=== PATIENT | male | born 1965 | race Caucasian/White ===

== ENCOUNTER 2018-10-13 04:49 | Inpatient (IN) | payer MEDICARE ==
[~2018-10-13] VITALS: Ht 172.7 cm; Wt 71.8 kg
[2018-10-13 06:00] VITALS: BP 167/77
[2018-10-13] MEDS ORDERED: INSU100C SQ (06:49)
[2018-10-13] MEDS ORDERED: CARV25TA2 PO (06:49)
[2018-10-13] MEDS ORDERED: LOSA100T2 PO (06:49)
[2018-10-13] MEDS ORDERED: LOPE2TAB27 PO (06:49)
[2018-10-13] MEDS ORDERED: FOLI1TAB16 PO (06:49)
[2018-10-13] MEDS ORDERED: BENZ100C PO (06:49)
[2018-10-13] MEDS ORDERED: ONDA4TAB12 PO (06:49)
[2018-10-13] MEDS ORDERED: TAMS0.4C2 PO (06:49)
[2018-10-13] MEDS ORDERED: INSU100I13 SQ (06:49)
[2018-10-13] MEDS ORDERED: GABA600T2 PO (06:49)
[2018-10-13] MEDS ORDERED: MONT10TA9 PO (06:49)
[2018-10-13] MEDS ORDERED: FURO80TA3 PO (06:49)
[2018-10-13] MEDS ORDERED: AMLO10TA6 PO (06:49)
[2018-10-13] MEDS ORDERED: CALC667T PO (06:49)
[2018-10-13] MEDS ORDERED: DIAZEPAM10 MG PO (06:49)
[2018-10-13] MEDS ORDERED: HYDR100T24 PO (06:49)
[2018-10-13] MEDS ORDERED: ASPI-630 PO (06:49)
[2018-10-13] MEDS ORDERED: ATOR40TA59 PO (06:49)
[2018-10-13] MEDS ORDERED: HYDROcodone/APAP 5/325MG 1 TAB TABLET PO PRN (07:00)
[2018-10-13] MEDS ORDERED: ONDANSETRON ODT 4 MG TAB.RAPDIS. PO PRN (07:00)
[2018-10-13] MEDS ORDERED: HEPARIN 25,000UTS/500ML PREMIX 500 ML IV PRN (07:15)
[2018-10-13] MEDS ORDERED: LOPERAMIDE 2 MG CAPSULE PO PRN (07:15)
[2018-10-13] MEDS ORDERED: diazePAM 5 MG TABLET PO PRN (07:15)
[2018-10-13] MEDS ORDERED: HEPARIN for IV BOLUS 10,000 UNIT/10 ML VIAL. IV PRN (07:15)
[2018-10-13] MEDS: INSULIN LISPRO 300 UNITS/3 ML INSULN.PEN. SQ SCH ×3 (08:00→18:01)
[2018-10-13] MEDS: CALCIUM ACETATE 667 MG CAPSULE PO SCH ×3 (08:00→17:54)
[2018-10-13] MEDS ORDERED: BENZONATATE 100 MG CAPSULE. PO PRN (09:00)
[2018-10-13] MEDS: FUROSEMIDE 80 MG TABLET. PO SCH ×3 (09:00→13:58)
[2018-10-13] MEDS ORDERED: amLODIPine BESYLATE 10 MG TABLET PO SCH (09:00)
[2018-10-13] MEDS ORDERED: FOLIC ACID 1 MG TABLET. PO SCH (09:00)
[2018-10-13] MEDS ORDERED: ASPIRIN CHEWABLE 81 MG TABLET. PO SCH (09:00)
[2018-10-13] MEDS: GABAPENTIN 300 MG CAPSULE. PO SCH ×2 (09:00→13:46)
[2018-10-13] MEDS ORDERED: IV NORMAL SALINE 1000ML BAG 1,000 ML IV PRN ×2 (09:35)
[2018-10-13] MEDS ORDERED: DIALYSIS PATIENT. MC PRN (09:45)
--- NOTE | 2018-10-13 10:26 | HP ---
ADMIT DATE: 10/13/2018 HISTORY OF PRESENT ILLNESS: The patient is a 52-year-old male patient who presented to the Emergency Room of [facility] complaining of cough with central chest pain that lasts about 30 minutes. He apparently is known to have coronary artery disease with myocardial infarction in 2009 and he is known to have end-stage renal disease, on hemodialysis on Tuesday, Tuesday, and Tuesday for the last 2 years, who apparently took nitroglycerin sublingually and alleviated his pain from a severity of 7/10 down to 3/10. He was extensively investigated in the Emergency Room of [facility], was found to have elevated troponin of 0.026. A chest x-ray showed that he has evidence of pulmonary congestion, fluid overload, and therefore, the patient was transferred to [facility] as he clearly will require dialysis and ultrafiltration. When I saw him this morning, he was chest pain free, though he has nitro paste in his chest wall. He did receive also some IV morphine and apparently that makes him very groggy. His oxygen has dropped down to the mid 80s, but on 2 liters his oxygen improved to 93-94%. PAST MEDICAL HISTORY: Significant for type 2 diabetes mellitus, chronic obstructive pulmonary disease, hypertension, cerebrovascular accident x 2 in 2004. He has end-stage renal disease, on hemodialysis in the last 2 days, Tuesday, Tuesday and Tuesday; history of coronary artery disease, status post myocardial infarction in 2009. PAST SURGICAL HISTORY: Significant for arteriovenous fistula creation. FAMILY HISTORY: Noncontributory. SOCIAL HISTORY: He is , lives with his . He quit smoking. Does not drink alcohol or use recreational drugs. REVIEW OF SYSTEMS: As per history of present illness. PHYSICAL EXAMINATION GENERAL: When I saw him, he was resting slightly propped up in bed, receiving his scheduled hemodialysis. He was slightly pale, but no jaundice, cyanosis or thyromegaly. No jugular venous distention. No lower limb edema. VITAL SIGNS: His heart rate was 100, blood pressure was 167/77, temperature was 97.6, respiratory rate was 18 and oxygen saturation was 93% on 2 liters of oxygen. HEAD, EYES, EARS, NOSE AND THROAT: Showed normocephalic, atraumatic. NECK: Supple. HEART: Showed normal first and second sounds. No gallop, rub or murmur. CHEST: Shows central trachea, equal bilateral expansion, air entry, with bilateral crepitation posteriorly. I could not appreciate any rhonchi. ABDOMEN: Distended, soft, nontender. NEUROLOGIC: He was somewhat lethargic, but arousable. All his cranial nerves are intact. EXTREMITIES: He moves extremities without difficulty. LABORATORY DATA: At [facility] showed that his white cell count was 6600, hemoglobin was 9.5, hematocrit 28, MCV 99 and platelet count of 166,000. His prothrombin time was 9.9, INR of 1, aPTT was 28. His serum sodium 139, potassium 5, chloride 98, bicarbonate 26, anion gap of 15, BUN of 56, creatinine 7.2, estimated GFR was 80 mL per minute. His glucose was 177, calcium was 8.2, magnesium 2. Total bilirubin, AST, ALT, alkaline phosphatase were normal. CK was 118. Troponin was 0.026. Beta natriuretic peptide was 30,452. Total protein was 7.2, albumin was 4.1. Serum lipase was 115. Urinalysis showed the urine was yellow, clear with a pH of 8.5, specific gravity of 1.020. There was large amount of glucose, negative for ketones. There was small amount of blood, negative for nitrite and bilirubin, it was negative for leukocyte esterase. There were no rbc's, no wbc's, and no bacteria. The toxic screen essentially was positive only for benzodiazepine, negative for other drugs. His EKG showed that he was in sinus rhythm at a rate of 98 beats per minute, no ST segment elevation. Chest x-ray showed increased cephalization of pulmonary edema and COPD changes. ASSESSMENT: Therefore, the patient was transferred to [facility] with chest pain; accelerated hypertension; end-stage renal disease, on hemodialysis Tuesday, Tuesday, Tuesday; history of coronary artery disease and myocardial infarction in 2009; congestive heart failure and pulmonary edema. He has also type 2 diabetes mellitus and history of tobacco use before. PLAN: My plan is to consult the life insurance sales as well as the pencils washer. If he continued to be hypoxic after hemodialysis, we will consult the aviation electrical technician as he might have significant COPD. CARMEN GASTON MD DR: CLARISA/ruel JOB#: [id number] / [id number]
[2018-10-13 10:42] LABS: CHOLESTEROL/HDL RATIO 1.6
[2018-10-13 10:51] LABS: BASO # 0.1 x10^3/uL (0.0-0.2); BASO % 1 % (0-3); EOS # 0.1 x10^3/uL (0.0-0.7); EOS % 2 % (0-3); HEMATOCRIT 23.7 % (39.0-53.0); HEMOGLOBIN 7.9 g/dL (13.0-17.5); LYMPH # 0.7 x10^3/uL (1.0-4.8); LYMPH % 13 % (24-48); MEAN CORPUSCULAR HEMOGLOBIN 34 pg (25-35); MEAN CORPUSCULAR HGB CONC 34 g/dL (31-37); MEAN CORPUSCULAR VOLUME 100 fL (79-100); MONO # 0.5 x10^3/uL (0.0-1.1); MONO % 9 % (0-9); NEUT # 4.2 x10^3uL (1.8-7.7); NEUT % 75 % (31-73); PLATELET COUNT 143 x10^3/uL (140-400); RED BLOOD COUNT 2.37 x10^6/uL (4.30-5.70); RED CELL DISTRIBUTION WIDTH 14.8 % (11.5-14.5); WHITE BLOOD COUNT 5.5 x10^3/uL (4.0-11.0)
[2018-10-13 11:00] LABS: CREATININE 7.6 mg/dL (0.7-1.3); GFR 7.5; POTASSIUM 5.2 mmol/L (3.5-5.1)
--- NOTE | 2018-10-13 11:09 | PDOC2 ---
CONSULT Date of Consult Date of Consult DATE: 10/13/18 TIME: 11:02 Reason for Consult Reason for Consult: ESRD Referring Physician Referring Physician: ALEK Identification/Chief Complaint Chief Complaint CHEST PAIN Source Source: Chart review, Patient History of Present Illness Reason for Visit: THIS IS A 52 YR OLD WITH CHEST PAIN AND SOB, HAS DM II AND HTN AND ESRD. ON OP HD ON MWF. LABS C/W ESRD. NO RADIATION, HAS HX OF COPD WELL AND HAS HAD SOME WHEEZING Past Medical History Cardiovascular: HTN Pulmonary: COPD CENTRAL NERVOUS SYSTEM: CVA GI: Constipation Renal/: Chronic renal failure Endocrine: Diabetes, Hyperparathyroidism Past Surgical History Past Surgical History AV ACCESS Family History Family History: Hypertension Social History Quit ALCOHOL: rare Drugs: None Lives: with Family Current Medications Current Medications Current Medications Acetaminophen/ Hydrocodone Bitart (Lortab 5/325) 1 tab PRN Q4HRS PRN PO PAIN; Start 10/13/18 at 07:00 Amlodipine Besylate (Norvasc) 10 mg DAILY PO ; Start 10/13/18 at 09:00 Aspirin (Children'S Aspirin) 81 mg DAILY PO ; Start 10/13/18 at 09:00 Atorvastatin Calcium (Lipitor) 40 mg HS PO ; Start 10/13/18 at 21:00 Folic Acid (Folic Acid) 1 mg DAILY PO ; Start 10/13/18 at 09:00 Furosemide (Lasix) 80 mg BID92 PO ; Start 10/13/18 at 09:00 Insulin Glargine (Lantus) 11 units QHS SQ ; Start 10/13/18 at 21:00 Ondansetron HCl (Zofran Odt) 4 mg PRN Q8HRS PRN PO NAUSEA; Start 10/13/18 at 07 :00 Tamsulosin HCl (Flomax) 0.4 mg HS PO ; Start 10/13/18 at 21:00 Benzonatate (Tessalon Perle) 100 mg PRN Q6HRS PRN PO COUGH; Start 10/13/18 at 09:00 Calcium Acetate (Phoslo) 667 mg TIDWMEALS PO ; Start 10/13/18 at 08:00 Carvedilol (Coreg) 25 mg BIDWMEALS PO ; Start 10/13/18 at 08:00 Diazepam (Valium) 10 mg PRN Q12HR PRN PO ANXIETY; Start 10/13/18 at 07:15 Gabapentin (Neurontin) 300 mg TID PO ; Start 10/13/18 at 09:00 Hydralazine HCl (Apresoline) 100 mg TID PO ; Start 10/13/18 at 09:00 Insulin Human Lispro (HumaLOG) 22 units TIDWMEALS SQ ; Start 10/13/18 at 08:00 Loperamide HCl (Imodium) 2 mg PRN Q15MIN PRN PO DIARRHEA; Start 10/13/18 at 07: 15 Losartan Potassium (Cozaar) 100 mg QHS PO ; Start 10/13/18 at 21:00 Montelukast Sodium (Singulair) 10 mg PRN QHS PRN PO ALLERGIES; Start 10/13/18 at 21:00 Heparin Sodium/ Dextrose 500 ml @ 17.28 mls/ hr CONT PRN IV SEE I/O RECORD; Start 10/13/18 at 07:15 Heparin Sodium (Porcine) (Heparin Sodium) 1,800 unit PRN Q6HRS PRN IV FOR UFH LEVEL LESS THAN 0.2; Start 10/13/18 at 07:15 Sodium Chloride 1,000 ml @ 1,000 mls/hr Q1H PRN IV hypotension; Start 10/13/18 at 09:35; Stop 10/13/18 at 15:34 Sodium Chloride 1,000 ml @ 400 mls/hr Q2H30M PRN IV PATENCY; Start 10/13/18 at 09:35; Stop 10/13/18 at 21:34 Info (PHARMACY MONITORING -- do not chart) 1 each PRN DAILY PRN MC SEE COMMENTS ; Start 10/13/18 at 09:45 Active Scripts Active Reported Calcium Acetate 667 Mg Tablet 667 Mg PO TIDWMEALS Tessalon Perle (Benzonatate) 100 Mg Capsule 1 Cap PO PRN Q6HRS Tamsulosin Hcl 0.4 Mg Cap.er.24h 1 Cap PO HS Montelukast Sodium Tablet (Montelukast Sodium) 10 Mg Tablet 1 Tab PO HS PRN Ondansetron Odt (Ondansetron) 4 Mg Tab.rapdis 1 Tab PO PRN Q6-8HRS PRN Loperamide (Loperamide Hcl) 2 Mg Tablet 4 Mg PO PRN Q8MIN Lantus Solostar (Insulin Glargine,Hum.rec.anlog) 100 Unit/1 Ml Insuln.pen 11 Unit SQ QHS Hydralazine Hcl 100 Mg Tablet 1 Tab PO TID Humalog (Insulin Lispro) 100 Unit/1 Ml Cartridge 22 Unit SQ TIDWMEALS Gabapentin 600 Mg Tablet 300 Mg PO TID Furosemide 80 Mg Tablet 1 Tab PO BID Folic Acid 1 Mg Tablet 1 Tab PO DAILY Diazepam 10 Mg Tablet 10 Mg PO PRN Q12HR PRN Cozaar (Losartan Potassium) 100 Mg Tablet 100 Mg PO HS Carvedilol 25 Mg Tablet 25 Mg PO BIDWMEALS Atorvastatin Calcium 40 Mg Tablet 40 Mg PO HS Aspirin 81 Mg Tab.chew 1 Tab PO DAILY Amlodipine Besylate 10 Mg Tablet 10 Mg PO DAILY Allergies Allergies: Coded Allergies: lamotrigine (Verified Allergy, Intermediate, 10/13/18) ROS General: YES: Fatigue, Malaise PSYCHOLOGICAL ROS: YES: Anxiety Eyes: Yes Decreased vision HEENT: YES: Heacaches Respiratory: YES: Cough, Shortness of breath Cardiovascular: yes Chest Pain Gastrointestinal: Yes Constipation Genitourinary: YES Other (ANURIA) Musculoskeletal: Yes Muscular Weakness Neurological: Yes Weakness Skin: Yes Dry Skin Physical Exam General: Alert, Oriented X3, Cooperative, No acute distress HEENT: Atraumatic, PERRLA Lungs: Clear to auscultation Heart: Regular rate, Normal S1, Normal S2 Abdomen: Normal bowel sounds, Soft, No tenderness Extremities: No cyanosis Skin: No breakdown Neuro: Normal speech, Cranial nerves 3-12 NL Psych/Mental Status: Mental status NL, Mood NL MUSCULOSKELETAL: No joint tenderness, No deformity, No swelling Vitals VITALS Vital Signs Date Time Temp Pulse Resp B/P (MAP) Pulse Ox O2 Delivery O2 Flow Rate FiO2 10/13/18 06:00 97.6 100 18 167/77 (107) 93 Room Air 97.6 Labs Labs Laboratory Tests Test 10/13/18 08:45 White Blood Count 5.5 x10^3/uL (4.0-11.0) Red Blood Count 2.37 x10^6/uL (4.30-5.70) Hemoglobin 7.9 g/dL (13.0-17.5) Hematocrit 23.7 % (39.0-53.0) Mean Corpuscular Volume 100 fL (79-100) Mean Corpuscular Hemoglobin 34 pg (25-35) Mean Corpuscular Hemoglobin Concent 34 g/dL (31-37) Red Cell Distribution Width 14.8 % (11.5-14.5) Platelet Count 143 x10^3/uL (140-400) Neutrophils (%) (Auto) 75 % (31-73) Lymphocytes (%) (Auto) 13 % (24-48) Monocytes (%) (Auto) 9 % (0-9) Eosinophils (%) (Auto) 2 % (0-3) Basophils (%) (Auto) 1 % (0-3) Neutrophils # (Auto) 4.2 x10^3uL (1.8-7.7) Lymphocytes # (Auto) 0.7 x10^3/uL (1.0-4.8) Monocytes # (Auto) 0.5 x10^3/uL (0.0-1.1) Eosinophils # (Auto) 0.1 x10^3/uL (0.0-0.7) Basophils # (Auto) 0.1 x10^3/uL (0.0-0.2) Heparin Anti-Xa Act, Unfractionated < 0.10 IU/mL (0.30-0.70) Sodium Level 137 mmol/L (136-145) Potassium Level 5.2 mmol/L (3.5-5.1) Chloride Level 99 mmol/L (98-107) Carbon Dioxide Level 24 mmol/L (21-32) Anion Gap 14 (6-14) Blood Urea Nitrogen 58 mg/dL (8-26) Creatinine 7.6 mg/dL (0.7-1.3) Estimated GFR (Cockcroft-Gault) 7.5 Glucose Level 285 mg/dL (70-99) Calcium Level 8.0 mg/dL (8.5-10.1) Troponin I Quantitative 0.020 ng/mL (0.000-0.055) Triglycerides Level 48 mg/dL (0-150) Cholesterol Level 140 mg/dL (0-200) LDL Cholesterol, Calculated 41 mg/dL (0-100) VLDL Cholesterol, Calculated 10 mg/dL (0-40) Non-HDL Cholesterol Calculated 51 mg/dL (0-129) HDL Cholesterol 89 mg/dL (40-60) Cholesterol/HDL Ratio 1.6 Laboratory Tests Test 1/25/19 08:45 White Blood Count 5.5 x10^3/uL (4.0-11.0) Red Blood Count 2.37 x10^6/uL (4.30-5.70) Hemoglobin 7.9 g/dL (13.0-17.5) Hematocrit 23.7 % (39.0-53.0) Mean Corpuscular Volume 100 fL (79-100) Mean Corpuscular Hemoglobin 34 pg (25-35) Mean Corpuscular Hemoglobin Concent 34 g/dL (31-37) Red Cell Distribution Width 14.8 % (11.5-14.5) Platelet Count 143 x10^3/uL (140-400) Neutrophils (%) (Auto) 75 % (31-73) Lymphocytes (%) (Auto) 13 % (24-48) Monocytes (%) (Auto) 9 % (0-9) Eosinophils (%) (Auto) 2 % (0-3) Basophils (%) (Auto) 1 % (0-3) Neutrophils # (Auto) 4.2 x10^3uL (1.8-7.7) Lymphocytes # (Auto) 0.7 x10^3/uL (1.0-4.8) Monocytes # (Auto) 0.5 x10^3/uL (0.0-1.1) Eosinophils # (Auto) 0.1 x10^3/uL (0.0-0.7) Basophils # (Auto) 0.1 x10^3/uL (0.0-0.2) Heparin Anti-Xa Act, Unfractionated < 0.10 IU/mL (0.30-0.70) Sodium Level 137 mmol/L (136-145) Potassium Level 5.2 mmol/L (3.5-5.1) Chloride Level 99 mmol/L (98-107) Carbon Dioxide Level 24 mmol/L (21-32) Anion Gap 14 (6-14) Blood Urea Nitrogen 58 mg/dL (8-26) Creatinine 7.6 mg/dL (0.7-1.3) Estimated GFR (Cockcroft-Gault) 7.5 Glucose Level 285 mg/dL (70-99) Calcium Level 8.0 mg/dL (8.5-10.1) Troponin I Quantitative 0.020 ng/mL (0.000-0.055) Triglycerides Level 48 mg/dL (0-150) Cholesterol Level 140 mg/dL (0-200) LDL Cholesterol, Calculated 41 mg/dL (0-100) VLDL Cholesterol, Calculated 10 mg/dL (0-40) Non-HDL Cholesterol Calculated 51 mg/dL (0-129) HDL Cholesterol 89 mg/dL (40-60) Cholesterol/HDL Ratio 1.6 Assessment/Plan Assessment/Plan IMP CHEST PAIN ESRD DM II HTN ANEMIA HYPERKALEMIA COPD PLAN CHEST PAIN W/U HD TODAY UF TO DW QUENESP BREATHING TX MAY HELP ARCHIE BAUTISTA MD Oct 13, 2018 11:09
--- NOTE | 2018-10-13 11:33 | PDOC2 ---
CARDIAC CONSULT DATE OF CONSULT Date of Consult DATE: 10/13/18 TIME: 11:21 REASON FOR CONSULT Reason for Consult: Chest pain REFERRING PHYSICIAN Referring Physician: Jose SOURCE Source: Chart review, Patient HISTORY OF PRESENT ILLNESS HISTORY OF PRESENT ILLNESS This is a pleasant 52 yo male admitted initially at [facility] for chest pain. He did take NTG and went to the hospital. This just started few days ago. No falls or any injury. This is sharp and isolated to his left chest region and in some areas reproducible with palpation. Currently he is drowsy as he was given some pain medication. He had LHC in the past and may have had RI but no interventions was done. He came here from [place] for pending evaluation for possible kidney and pancreatic transplant. Denies any significant nausea prior coming to the hospital. He was also noted with cough and some SOA but was on RA with O2 sat in the 90s. Denies any recent falls, MVA or any injury. No jaw or arm pain. PAST MEDICAL HISTORY Cardiovascular: CAD (no stents ), HTN, Hyperlipidemia Pulmonary: COPD CENTRAL NERVOUS SYSTEM: CVA Heme/Onc: Anemia NOS Musculoskeletal: Osteoarthritis Renal/: Chronic renal failure (ESRD), Benign prostatic enlarg. Endocrine: Diabetes (2), Hyperparathyroidism PAST SURGICAL HISTORY Past Surgical History: Total knee replacement, Other (AV fistula) FAMILY HISTORY Family History noncontributory SOCIAL HISTORY Smoke: Quit ALCOHOL: none Drugs: None Lives: with Family CURRENT MEDICATIONS CURRENT MEDICATIONS Current Medications Medications (Trade) Dose Ordered Sig/Rosalino Route PRN Reason Start Time Stop Time Status Last Admin Dose Admin Heparin Sodium/ Dextrose 500 ml @ 17.28 mls/ hr CONT PRN IV SEE I/O RECORD 10/13/18 07:15 10/13/18 10:58 Heparin Sodium (Porcine) (Heparin Sodium) 1,800 unit PRN Q6HRS PRN IV FOR UFH LEVEL LESS THAN 0.2 10/13/18 07:15 10/13/18 10:55 ALLERGIES ALLERGIES: Coded Allergies: lamotrigine (Verified Allergy, Intermediate, 10/13/18) ROS Review of System limited, pt is drowsy PHYSICAL EXAM General: Oriented X3, Cooperative, No acute distress HEENT: Atraumatic, Mucous membr. moist/pink Lungs: Other (diminished bases) Heart: Regular rate (SR no ectopies), Normal S1, Normal S2, Other (2/6 systolic murmur to LLS border) Extremities: No cyanosis, No edema Skin: No breakdown, No significant lesion Neuro: Normal speech, Sensation intact Psych/Mental Status: Other (drowsy) MUSCULOSKELETAL: Osteoarthritic changes both hands VITALS VITALS Vital Signs Date Time Temp Pulse Resp B/P (MAP) Pulse Ox O2 Delivery O2 Flow Rate FiO2 10/13/18 06:00 97.6 100 18 167/77 (107) 93 Room Air 97.6 LABS Lab: Laboratory Tests Test 10/13/18 08:45 White Blood Count 5.5 x10^3/uL (4.0-11.0) Red Blood Count 2.37 x10^6/uL (4.30-5.70) Hemoglobin 7.9 g/dL (13.0-17.5) Hematocrit 23.7 % (39.0-53.0) Mean Corpuscular Volume 100 fL (79-100) Mean Corpuscular Hemoglobin 34 pg (25-35) Mean Corpuscular Hemoglobin Concent 34 g/dL (31-37) Red Cell Distribution Width 14.8 % (11.5-14.5) Platelet Count 143 x10^3/uL (140-400) Neutrophils (%) (Auto) 75 % (31-73) Lymphocytes (%) (Auto) 13 % (24-48) Monocytes (%) (Auto) 9 % (0-9) Eosinophils (%) (Auto) 2 % (0-3) Basophils (%) (Auto) 1 % (0-3) Neutrophils # (Auto) 4.2 x10^3uL (1.8-7.7) Lymphocytes # (Auto) 0.7 x10^3/uL (1.0-4.8) Monocytes # (Auto) 0.5 x10^3/uL (0.0-1.1) Eosinophils # (Auto) 0.1 x10^3/uL (0.0-0.7) Basophils # (Auto) 0.1 x10^3/uL (0.0-0.2) Heparin Anti-Xa Act, Unfractionated < 0.10 IU/mL (0.30-0.70) Sodium Level 137 mmol/L (136-145) Potassium Level 5.2 mmol/L (3.5-5.1) Chloride Level 99 mmol/L (98-107) Carbon Dioxide Level 24 mmol/L (21-32) Anion Gap 14 (6-14) Blood Urea Nitrogen 58 mg/dL (8-26) Creatinine 7.6 mg/dL (0.7-1.3) Estimated GFR (Cockcroft-Gault) 7.5 Glucose Level 285 mg/dL (70-99) Calcium Level 8.0 mg/dL (8.5-10.1) Troponin I Quantitative 0.020 ng/mL (0.000-0.055) Triglycerides Level 48 mg/dL (0-150) Cholesterol Level 140 mg/dL (0-200) LDL Cholesterol, Calculated 41 mg/dL (0-100) VLDL Cholesterol, Calculated 10 mg/dL (0-40) Non-HDL Cholesterol Calculated 51 mg/dL (0-129) HDL Cholesterol 89 mg/dL (40-60) Cholesterol/HDL Ratio 1.6 ASSESSMENT/PLAN ASSESSMENT/PLAN 1. Atypical chest pain: trop series normal. EKG SR without acute changes. Suspect MSK 2. Acute on chronic diastolic CHF 3. CAD: reported with no intervention 4. CVA 5. ESRD 6. DM2/HLP 7. HTN: labile 8. COPD with continued tobaccoism 9. Mild acute on chronic diastolic CHF Recommendations 1. DC heparin no cardiac indication. Continue ASA and secondary prevention 2. Restart home BP meds and adjust per BP trend. Labetolol IV PRN 3. Will consider for outpt stress test. TTE today. 4. Fluid off loading per HD PEDRO OLSON APRN Oct 13, 2018 11:33
--- NOTE | 2018-10-13 11:53 | EKG ---
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
[2018-10-13] MEDS ORDERED: LABETALOL 20 MG/4 ML DISP.SYRIN. IVP PRN (12:45)
[2018-10-13] MEDS: CARVEDILOL 12.5 MG TABLET. PO SCH ×2 (13:49→17:54)
--- NOTE | 2018-10-13 14:01 | NUR ---
Blood glucose 145, scheduled humalog dose adjusted per patient's request, humalog 5 units given.
--- NOTE | 2018-10-13 14:07 | CONS ---
DATE OF CONSULTATION: ATTENDING PHYSICIAN: Dr. Garcia. REASON FOR CONSULTATION: Respiratory failure, abnormal chest x-ray. HISTORY OF PRESENT ILLNESS: The patient is a 52-year-old male who has history of end-stage renal disease and a long history of tobacco use. He presented to [facility] with chest pain and also cough and shortness of breath. The patient's chest pain was on the left side. It was also reproducible. He was seen and his chest x-ray was consistent with interstitial edema. He was referred back to [facility] for dialysis and further care. His saturations were in the 80s on arrival and now corrects well with oxygen at 2 liters. He is currently undergoing dialysis. No headaches, no nausea, vomiting, no diarrhea. No dysuria. No focal weakness. PAST MEDICAL HISTORY: History of CAD, no stents. History of hypertension, hyperlipidemia, COPD, unknown FEV1, history of CVA, BPH, diabetes type 2 and end-stage renal disease, on hemodialysis. PAST SURGICAL HISTORY: Total knee replacement and AV fistula. FAMILY HISTORY: Noncontributory to lungs. SOCIAL HISTORY: Has been a smoker since age 13. REVIEW OF SYSTEMS: Twelve-point system obtained. Pertinent positives discussed in my history of present illness, otherwise noncontributory. All systems that were negative were reviewed as well. ALLERGIES: LAMOTRIGINE. MEDICATIONS: Reviewed as listed in the MRAD. PHYSICAL EXAMINATION: VITAL SIGNS: Reviewed. Pulse ox 93% on 2 liters, afebrile. HEENT: Sclerae nonicteric. NECK: Supple. LUNGS: With crackles posteriorly. CARDIOVASCULAR: Regular rate and rhythm. ABDOMEN: Soft. EXTREMITIES: With no pitting edema. LABORATORY DATA: Reviewed. White cell count 5.5, hemoglobin 7.9, platelets are 143. BUN and creatinine 58 and 7.6. IMPRESSION: 1. Acute hypoxic respiratory failure secondary to interstitial edema. 2. Suspect acute on chronic diastolic heart failure. 3. Abnormal chest x-ray consistent with interstitial edema. Clinically, unlikely pneumonia. 4. End-stage renal disease, on hemodialysis. RECOMMENDATIONS: 1. Continue hemodialysis with ultrafiltration. 2. We will follow chest x-ray post-hemodialysis. 3. Wean off oxygen. The patient is already improving while undergoing hemodialysis with ultrafiltration. 4. Smoking cessation counseling provided. 5. PFTs as an outpatient. 6. Discussed with RN. JONATHAN CHRISTIAN MD DR: Brandee JOB#: [id number] / [id number]
[2018-10-13 15:00] VITALS: BP 160/74
--- NOTE | 2018-10-13 15:58 | CARD ---
MR#: [id number] Date of Study: 10/13/2018 Ordering Physician: PEDRO OLSON, Referring Physician: CARMEN GASTON Tech: Magda Shipley MELONIE APPROVED REPORT EXAM: Two-dimensional and M-mode echocardiogram with Doppler and color Doppler. Other Information Quality : GoodHR: 89bpm Rhythm : NSR INDICATION Chest Pain 2D DIMENSIONS RVDd3.3 (2.9-3.5cm)Left Atrium(2D)4.4 (1.6-4.0cm) IVSd0.9 (0.7-1.1cm)Aortic Root(2D)3.1 (2.0-3.7cm) LVDd5.7 (3.9-5.9cm)LVOT Diameter2.2 (1.8-2.4cm) PWd1.0 (0.7-1.1cm)LVDs4.0 (2.5-4.0cm) FS (%) 29.5 %SV87.6 ml LVEF(%)55.9 (>50%) M-Mode DIMENSIONS Left Atrium(MM)4.75 (2.5-4.0cm)Aortic Root3.29 (2.2-3.7cm) Aortic Valve AoV Peak Bo.167.0cm/sAoV VTI36.4cm AO Peak GR.11.2mmHgLVOT Peak Bo.106.7cm/s AO Mean GR.6mmHgAVA (VMAX)2.45cm2 VU (VTI)2.50cm2 Mitral Valve MV E Bfssefan931.3cm/sMV E Peak Gr.16mmHg MV DECEL [id number] A Wuypkyvb352.4cm/s MV E Mean Gr.7mmHgE/A Ratio1.5 MV A [id number] Pulmonary Valve PV Peak Iameifjx541.6cm/s Tricuspid Valve TR P. Iiewrnxw176mi/sRAP KLOLLMHF0ejCl TR Peak Gr.29fiJgOJLD00zfWo LEFT VENTRICLE The left ventricle is normal size. There is normal left ventricular wall thickness. The left ventricu lar systolic function is normal and the ejection fraction is within normal range. The Ejection Fracti on is 55%. There is normal LV segmental wall motion. Transmitral Doppler flow pattern is Grade II-pse udonormal filling dynamics. RIGHT VENTRICLE The right ventricle is normal size. There is normal right ventricular wall thickness. The right ventr icular systolic function is normal. ATRIA The left atrium is mildly dilated. The right atrium size is normal. The interatrial septum is intact with no evidence for an atrial septal defect or patent foramen ovale as noted on 2-D or Doppler imagi ng. AORTIC VALVE The aortic valve is normal in structure and function. The aortic valve is trileaflet. Doppler and Col or Flow revealed no significant aortic regurgitation. There is no significant aortic valvular stenosi s. MITRAL VALVE The mitral valve is normal in structure and function. There is no evidence of mitral valve prolapse. There is no mitral valve stenosis. Doppler and Color-flow revealed trace to mild mitral regurgitation . TRICUSPID VALVE The tricuspid valve is normal in structure and function. Doppler and Color Flow revealed mild tricusp id regurgitation. There is moderate pulmonary hypertension.The PA pressure was estimated at 57 mmHg. There is no tricuspid valve prolapse or vegetation. There is no tricuspid valve stenosis. PULMONIC VALVE Doppler and Color Flow revealed no pulmonic valvular regurgitation. There is no pulmonic valvular gaby nosis. GREAT VESSELS The aortic root is normal in size. The ascending aorta is normal in size. The IVC is dilated and chelsie apses >50% with inspiration. PERICARDIAL EFFUSION There is a trace circumferential pericardial effusion. Critical Notification Critical Value: No <Conclusion> The left ventricular systolic function is normal and the ejection fraction is within normal range. Th e Ejection Fraction is 55%. There is normal LV segmental wall motion. Doppler and Color Flow revealed mild tricuspid regurgitation. There is moderate pulmonary hypertensio n.The PA pressure was estimated at 57 mmHg. There is a trace circumferential pericardial effusion. Signed by : Syed Randle, Electronically Approved : 10/13/2018 15:56:29
[2018-10-13 17:54] VITALS: BP 160/74
--- NOTE | 2018-10-13 18:40 | NUR ---
Patient leaving AMA. RN discussed and explained in detail benefits of staying as well as risks for leaving, patient has full understanding and still wants to leave AMA. Physicians have been notified and aware. IV removed, patient belongings have been returned. Patient being escorted out safely with [facility] security and nursing aid.
--- NOTE | 2018-10-13 18:40 | NUR ---
Blood glucose 126, scheduled humalog dose adjusted per patient's request, humalog 10 units given.
[2018-10-13] MEDS ORDERED: MONTELUKAST SODIUM 10 MG TABLET. PO PRN (21:00)
[2018-10-13] MEDS ORDERED: ATORVASTATIN CALCIUM 40 MG TABLET. PO SCH (21:00)
[2018-10-13] MEDS ORDERED: TAMSULOSIN 0.4 MG CAP.ER.24H. PO SCH (21:00)
[2018-10-13] MEDS ORDERED: LOSARTAN POTASSIUM 50 MG TABLET. PO SCH (21:00)
[2018-10-13] MEDS ORDERED: INSULIN GLARGINE 300 UNITS/3 ML INSULN.PEN. SQ SCH (21:00)
== END 2018-10-13 18:48 | disposition left against medical advice (07) | DRG 291 ==
LOC: 2 NORTH 05:56
PROVIDERS: ADMIT Internal Medicine; ATTEND Internal Medicine
PROC: 5A1D70Z Performance of Urinary Filtration, Intermittent, Less than 6 Hours Per Day (ICD-10-PCS; principal; 2018-10-13)
DX: I13.2 Hypertensive heart and chronic kidney disease with heart failure and with stage 5 chronic kidney disease, or end stage renal disease (principal); I50.33 Acute on chronic diastolic (congestive) heart failure; J96.01 Acute respiratory failure with hypoxia; N18.6 End stage renal disease; R07.89 Other chest pain; D64.9 Anemia, unspecified; E11.22 Type 2 diabetes mellitus with diabetic chronic kidney disease; E78.5 Hyperlipidemia, unspecified; E87.5 Hyperkalemia; F17.210 Nicotine dependence, cigarettes, uncomplicated; I25.10 Atherosclerotic heart disease of native coronary artery without angina pectoris; M19.90 Unspecified osteoarthritis, unspecified site; I25.2 Old myocardial infarction; E21.3 Hyperparathyroidism, unspecified; Z96.659 Presence of unspecified artificial knee joint; Z53.21 Procedure and treatment not carried out due to patient leaving prior to being seen by health care provider; J44.9 Chronic obstructive pulmonary disease, unspecified; Z82.49 Family history of ischemic heart disease and other diseases of the circulatory system; Z86.73 Personal history of transient ischemic attack (TIA), and cerebral infarction without residual deficits; Z99.2 Dependence on renal dialysis; Z71.6 Tobacco abuse counseling; Z79.899 Other long term (current) drug therapy; Z88.8 Allergy status to other drugs, medicaments and biological substances
CPT/HCPCS: 36415; 80048; 80061; 82962; 84484; 85025; 85520; 93005; 93306; J1644; J1815

== ENCOUNTER 2018-12-21 10:53 | Day surgery (SDC) | payer MEDICARE ==
[~2018-12-21] VITALS: Ht 172.7 cm; Wt 66.0 kg
[~2018-12-21 10:53] MED LIST: AMLO10TA8 PO; ASPI-630 PO; ATOR40TA59 PO; BENZ100C PO; CALC667T4 PO; CARV25TA2 PO; DIAZEPAM10 MG PO; FOLI1TAB16 PO; FURO80TA3 PO; GABA600T7 PO; HYDR100T24 PO; HYDROmorphone 2 MG/ML VIAL IV PRN; INSU100C SQ; INSU100I13 SQ; IV RINGERS,LACTATED 1000ML 1,000 ML IV SCH; LOPE2TAB27 PO; LOSA100T2 PO; MONT10TA9 PO; MORPHINE SULFATE 2 MG/ML VIAL. IV PRN; ONDA4TAB12 PO; ONDANSETRON PF 4 MG/2 ML VIAL. IV PRN; PROCHLORPERAZINE 10 MG/2 ML VIAL. IV PRN; TAMS0.4C2 PO; fentaNYL PF VIAL 100 MCG/2 ML VIAL IV PRN
[2018-12-21] MEDS ORDERED: IV NORMAL SALINE 1000ML BAG 1,000 ML IV SCH (11:45)
[2018-12-21] MEDS ORDERED: HEPARIN SODIUM 1,000 UNIT in IV NORMAL SALINE 100ML 100 ML IRR ONE (12:00)
[2018-12-21 12:27] LABS: CALCIUM 8.7 mg/dL (8.5-10.1); CREATININE 7.5 mg/dL (0.7-1.3); GFR 7.6; POTASSIUM 4.5 mmol/L (3.5-5.1)
[2018-12-21] MEDS ORDERED: fentaNYL PF VIAL 100 MCG/2 ML VIAL ONE ×2 (12:46→14:16)
[2018-12-21] MEDS ORDERED: ROCURONIUM 50 MG/5 ML VIAL. ONE (12:46)
[2018-12-21] MEDS ORDERED: DEXAMETHASONE SOD PHOS 20 MG/5 ML VIAL. ONE (13:04)
[2018-12-21] MEDS ORDERED: PROPOFOL 20 ML IV ONE (13:04)
[2018-12-21] MEDS ORDERED: LIDOCAINE 2% PF 5 ML VIAL. ONE (13:04)
[2018-12-21] MEDS ORDERED: ONDANSETRON PF 4 MG/2 ML VIAL. ONE (13:04)
[2018-12-21] MEDS ORDERED: SEVOFLURANE 31 TO 60 MINUTES. IH ONE (13:04)
[2018-12-21] MEDS ORDERED: NEOSTIGMINE METHYLSULFATE 5 MG/5 ML SYRINGE. ONE (13:16)
[2018-12-21] MEDS ORDERED: GLYCOPYRROLATE 1 MG/5 ML VIAL. ONE (13:17)
[2018-12-21] MEDS ORDERED: hydrALAZINE 20 MG/ML VIAL. ONE (13:34)
--- NOTE | 2018-12-21 13:58 | PDOC4 ---
Operative Note Operative Note OPERATIVE NOTE: PREOPERATIVE DIAGNOSIS: Renal failure. POSTOPERATIVE DIAGNOSIS: Renal failure. PROCEDURE: Laparoscopic peritoneal dialysis catheter placement. SURGEON: Ej Kent MD ANESTHESIA: General. ESTIMATED BLOOD LOSS: 10 mL. SPECIMENS: None. DRAINS: None. COMPLICATIONS: None. INDICATIONS: The patient is a 53 year old male who was referred for placement of a peritoneal dialysis catheter due to progressive renal failure. The details and risks of surgery were discussed with the patient. The risks of surgery include bleeding, infection, visceral injury, pain, anesthetic risk, potential need for additional surgery or procedure. In addition, the patient is aware of the potential for catheter malfunction or dysfunction and possibility of needing revision, replacement, or removal of the catheter. They understand all this and would like to proceed. DESCRIPTION OF PROCEDURE: The patient was brought to the operating room and placed supine on the operating table. General anesthesia was performed. The abdomen was prepped with ChloraPrep and draped in a standard surgical manner. A small incision was made in the patient's left upper quadrant through which a visualized 5-mm trocar was inserted. A pneumoperitoneum was then created and the laparoscope was introduced. Initial inspection showed no significant adhesions or any other gross abnormalities. Using the placement template, the left abdomen was marked with a planned catheter exit site in the LLQ. A small incision was made to the left of the patient's midline at the marked location for the exit site of the cuff. An 8-mm trocar was inserted through this location. The coiled portion of the lower catheter was then inserted into the pelvis under direct visualization. The cuff was positioned in the rectus musculature. The coiled portion rested well in the inferior mid pelvis. The pneumoperitoneum was then relieved. An incision was then made in the left lower quadrant at the planned exit site. The proximal portion of the catheter was tunnelled subcutaneously to the exit site. The proximal cuff remained in the subcutaneous tissue a few cm away from the exit site. The catheter was then assembled to IV tubing and tested by infusing a liter of saline. The saline passed easily into the abdomen and the bag was placed on the floor. Nearly all of the saline readily was retrieved with prompt flow. The abdominal cavity was then reinsufflated and the laparoscope was reintroduced showing no change in the catheter position and the cuff remained in the rectus. The pneumoperitoneum was relieved and the ports were removed. The catheter was then assembled to the connector tubing as per the dialysis instructions. All the incision sites were closed with 4-0 Monocryl. Steri-Strips and sterile dressing were then applied. The patient tolerated procedure well and was sent to the recovery room in stable condition. At the end of the case all counts were correct. EJ KENT MD Dec 21, 2018 13:58
--- NOTE | 2018-12-21 14:00 | DISCH ---
DISCHARGE INSTRUCTIONS Condition on Discharge Condition on Discharge: Stable Activity After Discharge Activity Instructions for Disc: Other, see below (no lifting over 20 lbs X 2 weeks) Diet after Discharge Diet after Discharge: Regular Wound Incision Care Wound/Incision Care: Other, see below (keep dressing clean and dry) Follow-Up Follow up with: Dialysis center KINGS KENT MD Dec 21, 2018 14:00
[2018-12-21] MEDS ORDERED: PROCHLORPERAZINE 10 MG/2 ML VIAL. ONE (14:15)
[2018-12-21] MEDS ORDERED: INSULIN REGULAR 100 UNIT/ML 3ML VIAL. IV ONE (14:30)
[2018-12-21] MEDS ORDERED: HYDR-3164 PO ×2 (14:37)
[2018-12-21] MEDS ORDERED: HYDROcodone/APAP 5/325MG 1 TAB TABLET PO ONE ×2 (14:45)
[2018-12-21] MEDS ORDERED: HYDROcodone/APAP 5/325MG 1 TAB TABLET ONE (14:48)
[2018-12-21 15:15] VITALS: BP 154/64
--- NOTE | 2018-12-25 06:21 | NUR ---
Late entry notes and manual administration of single Lortab...patient was only given 1 Lortab before discharge last 12/21. This RN charted on the 2 tablet dose accidentally. Omnicell reflects accurately that only 1 tablet was given. My apologies.
== END 2018-12-21 15:23 | disposition home or self-care (01) ==
LOC: SURG 10:53
PROVIDERS: ATTEND Surgery
DX: I12.0 Hypertensive chronic kidney disease with stage 5 chronic kidney disease or end stage renal disease (principal); E10.22 Type 1 diabetes mellitus with diabetic chronic kidney disease; N18.6 End stage renal disease; Z99.2 Dependence on renal dialysis; J44.9 Chronic obstructive pulmonary disease, unspecified; E78.00 Pure hypercholesterolemia, unspecified; I25.10 Atherosclerotic heart disease of native coronary artery without angina pectoris; Z79.82 Long term (current) use of aspirin; Z79.899 Other long term (current) drug therapy; Z86.73 Personal history of transient ischemic attack (TIA), and cerebral infarction without residual deficits; Z98.890 Other specified postprocedural states; Z80.3 Family history of malignant neoplasm of breast; F17.210 Nicotine dependence, cigarettes, uncomplicated; Z88.8 Allergy status to other drugs, medicaments and biological substances
CPT/HCPCS: 36415; 49324; 80048; 82962; J0360; J0696; J0780; J1100; J1644; J2001; J2405; J2704; J2710; J3010; J3490

== ENCOUNTER 2019-01-31 19:10 | Inpatient (IN) | payer MEDICARE ==
[~2019-01-31] VITALS: Ht 172.7 cm; Wt 74.4 kg
[~2019-01-31 19:10] MED LIST changes: +HYDR-3164 PO; -HYDROmorphone 2 MG/ML VIAL IV PRN; -IV RINGERS,LACTATED 1000ML 1,000 ML IV SCH; -MORPHINE SULFATE 2 MG/ML VIAL. IV PRN; -ONDANSETRON PF 4 MG/2 ML VIAL. IV PRN; -PROCHLORPERAZINE 10 MG/2 ML VIAL. IV PRN; -fentaNYL PF VIAL 100 MCG/2 ML VIAL IV PRN
[2019-01-31] MEDS ORDERED: DEXTROSE 50% 25 GM / 50ML DISP.SYRIN. IV ONE (19:45)
--- NOTE | 2019-01-31 19:46 | PHYS DOC ---
Adult General Chief Complaint Chief Complaint: HYPOGLYCEMIA HPI HPI Brought in by found down blood sugar 34 unconscious for about 15 minutes no head trauma patient did not eat dinner he's been feeling weak he last used insulin earlier in the morning. He just switched to peritoneal dialysis about 2 weeks ago his blood pressures been running a little soft, like 110 range that is unusual for him. no fever has mild chest tightness with deep breathing thinks it is the fluid on his lungs minimal cough Review of Systems Review of Systems Constitutional: Denies fever or chills [] Eyes: Denies change in visual acuity, redness, or eye pain [] HENT: Denies nasal congestion or sore throat [] Respiratory: Denies cough or shortness of breath [] Cardiovascular: No additional information not addressed in HPI [] GI: Denies abdominal pain, nausea, vomiting, bloody stools or diarrhea [] : Denies dysuria or hematuria [] Musculoskeletal: Denies back pain or joint pain [] Integument: Denies rash or skin lesions [] Neurologic: Denies headache, focal weakness or sensory changes [] Endocrine: Denies polyuria or polydipsia [] All other systems were reviewed and found to be within normal limits, except as documented in this note. Current Medications Current Medications Current Medications Medications (Trade) Dose Ordered Sig/Rosalino Start Time Stop Time Status Last Admin Dose Admin Acetaminophen (Tylenol) 650 mg PRN Q6HRS PRN 01/31/19 21:30 Acetaminophen/ Hydrocodone Bitart (Lortab 5/325) 1 tab PRN Q6HRS PRN 01/31/19 21:30 Albuterol Sulfate (Ventolin Neb Soln) 10 mg 1X ONCE 01/31/19 21:00 01/31/19 21:02 DC 01/31/19 21:11 10 MG Calcium Gluconate (Calcium Gluconate) 1,000 mg 1X ONCE 01/31/19 21:00 01/31/19 21:02 DC Dextrose (Dextrose 50%-Water Syringe) 25 gm 1X ONCE 01/31/19 19:45 01/31/19 19:46 DC 01/31/19 19:50 25 GM Diazepam (Valium) 10 mg PRN Q12HR PRN 01/31/19 21:30 Lactulose (Lactulose) 20 gm PRN Q12HR PRN 01/31/19 21:30 Loperamide HCl (Imodium) 4 mg PRN Q8MIN PRN 01/31/19 21:30 Lorazepam (Ativan Inj) 0.5 mg PRN Q6HRS PRN 01/31/19 21:30 Montelukast Sodium (Singulair) 10 mg PRN QHS PRN 01/31/19 21:30 Ondansetron HCl (Zofran) 4 mg PRN Q6HRS PRN 01/31/19 21:30 Oxycodone/ Acetaminophen (Percocet 5/325) 1 tab PRN Q4HRS PRN 01/31/19 21:30 Sodium Bicarbonate (Sodium Bicarb Adult 8.4% Syr) 50 meq 1X ONCE 01/31/19 21:00 01/31/19 21:02 DC 01/31/19 21:06 50 MEQ Sodium Chloride (Normal Saline Flush) 3 ml QSHIFT PRN 01/31/19 21:30 Allergies Allergies Allergies Coded Allergies Type Severity Reaction Last Updated Verified lamotrigine Allergy Intermediate HIVES, SHORTNESS OF BREATH 12/21/18 Yes Physical Exam Physical Exam Constitutional: Well developed, chronically ill-appearing HENT: Normocephalic, atraumatic, bilateral external ears normal, oropharynx moist, no oral exudates, nose normal. [] Eyes: PERRLA, EOMI, conjunctiva normal, no discharge. [] Neck: Normal range of motion, no tenderness, supple, no stridor. [] Cardiovascular:Heart rate regular rhythm, no murmur [] Lungs & Thorax: Decreased breath sounds bilateral bases Abdomen: Bowel sounds normal, soft, no tenderness, no masses, no pulsatile masses. [] Peritoneal dialysis catheters in place Skin: Mild pallor Back: No tenderness, no CVA tenderness. [] Extremities: No tenderness, no cyanosis, no clubbing, ROM intact, no edema. [] Neurologic: Alert and oriented X 3, normal motor function, normal sensory function, no focal deficits noted. [] Psychologic: Affect normal, judgement normal, mood normal. [] Current Patient Data Vital Signs Vital Signs Date Time Temp Pulse Resp B/P (MAP) Pulse Ox O2 Delivery O2 Flow Rate FiO2 01/31/19 21:15 95 Room Air 01/31/19 20:51 74 133/63 (86) 01/31/19 19:48 18 5/15/19 19:25 97.8 97.8 Lab Values Laboratory Tests Test 01/31/19 19:39 01/31/19 19:45 01/31/19 20:34 01/31/19 20:50 Glucose (Fingerstick) 52 mg/dL (70-99) L 159 mg/dL (70-99) H White Blood Count 7.1 x10^3/uL (4.0-11.0) Red Blood Count 2.77 x10^6/uL (4.30-5.70) L Hemoglobin 8.9 g/dL (13.0-17.5) L Hematocrit 27.1 % (39.0-53.0) L Mean Corpuscular Volume 98 fL (79-100) Mean Corpuscular Hemoglobin 32 pg (25-35) Mean Corpuscular Hemoglobin Concent 33 g/dL (31-37) Red Cell Distribution Width 15.4 % (11.5-14.5) H Platelet Count 160 x10^3/uL (140-400) Neutrophils (%) (Auto) 79 % (31-73) H Lymphocytes (%) (Auto) 7 % (24-48) L Monocytes (%) (Auto) 11 % (0-9) H Eosinophils (%) (Auto) 2 % (0-3) Basophils (%) (Auto) 1 % (0-3) Neutrophils # (Auto) 5.7 x10^3uL (1.8-7.7) Lymphocytes # (Auto) 0.5 x10^3/uL (1.0-4.8) L Monocytes # (Auto) 0.8 x10^3/uL (0.0-1.1) Eosinophils # (Auto) 0.1 x10^3/uL (0.0-0.7) Basophils # (Auto) 0.1 x10^3/uL (0.0-0.2) Prothrombin Time 14.1 SEC (11.7-14.0) H Prothrombin Time INR 1.1 (0.8-1.1) Sodium Level 135 mmol/L (136-145) L Potassium Level 7.3 mmol/L (3.5-5.1) *H Chloride Level 93 mmol/L (98-107) L Carbon Dioxide Level 19 mmol/L (21-32) L Anion Gap 23 (6-14) H Blood Urea Nitrogen 89 mg/dL (8-26) H Creatinine 17.4 mg/dL (0.7-1.3) H Estimated GFR (Cockcroft-Gault) 2.9 BUN/Creatinine Ratio 5 (6-20) L Glucose Level 159 mg/dL (70-99) H Calcium Level 5.8 mg/dL (8.5-10.1) *L Magnesium Level 2.2 mg/dL (1.8-2.4) Total Bilirubin 0.4 mg/dL (0.2-1.0) Aspartate Amino Transferase (AST) 18 U/L (15-37) Alanine Aminotransferase (ALT) 14 U/L (16-63) L Alkaline Phosphatase 103 U/L (46-116) Troponin I Quantitative 0.045 ng/mL (0.000-0.055) WO-Kdi-I-Type Natriuretic Peptide 60790 pg/mL (0-124) H Total Protein 6.6 g/dL (6.4-8.2) Albumin 2.9 g/dL (3.4-5.0) L Albumin/Globulin Ratio 0.8 (1.0-1.7) L Lipase 152 U/L (73-393) Ethyl Alcohol Level < 10 mg/dL (0-10) Laboratory Tests 01/31/19 19:45 Laboratory Tests 01/31/19 20:50 EKG EKG Normal sinus rhythm rate 94 normal sinus rhythm rate of 73 peak T waves different from prior EKG QTc 489 concerning for hyperkalemia patient was treated presumptively with calcium gluconate. Radiology/Procedures Radiology/Procedures [] Impressions: possible mild pulm vasc congestion bones ok, cartdiomegaly, interpreted by me time of encounter. Course & Med Decision Making Course & Med Decision Making Pertinent Labs and Imaging studies reviewed. (See chart for details) []53-year-old male diabetic on insulin just switched to peritoneal dialysis p resenting with hypoglycemia that did correct in the emergency room after a turkey see much likely related to no dinner and using insulin. In addition found to have fairly significant hyperkalemia with EKG changes patient remained hemodynamically stable in the emergency room I spoke with Dr. APARICIO approximately 20 minutes following the results of the potassium. She will arrange for urgent hemodialysis. Of note I have very treated the patient with calcium bicarbonate and continuous albuterol we avoided insulin due to the history of hypoglycemia. I spoke with Dr. segovia for admission to the ICU for the above. Family and patient are aware of the plan. Critical care time was 50 minutes exclusive of procedures. For management of acute hyperkalemia with EKG changes high risk for decompensation Dragon Disclaimer Dragon Disclaimer This electronic medical record was generated, in whole or in part, using a voice recognition dictation system. Departure Departure Impression: Primary Impression: Hyperkalemia Additional Impression: Hypoglycemia Disposition: 09 ADMITTED INPATIENT Admitting Physician: Other Condition: STABLE Referrals: NO PCP (PCP) Problem Qualifiers GINA SILVESTRE MD January 31, 2019 19:46
[2019-01-31 20:00] LABS: BASO # 0.1 x10^3/uL (0.0-0.2); BASO % 1 % (0-3); EOS # 0.1 x10^3/uL (0.0-0.7); EOS % 2 % (0-3); HEMATOCRIT 27.1 % (39.0-53.0); HEMOGLOBIN 8.9 g/dL (13.0-17.5); LYMPH # 0.5 x10^3/uL (1.0-4.8); LYMPH % 7 % (24-48); MEAN CORPUSCULAR HEMOGLOBIN 32 pg (25-35); MEAN CORPUSCULAR HGB CONC 33 g/dL (31-37); MEAN CORPUSCULAR VOLUME 98 fL (79-100); MONO # 0.8 x10^3/uL (0.0-1.1); MONO % 11 % (0-9); NEUT # 5.7 x10^3uL (1.8-7.7); NEUT % 79 % (31-73); PLATELET COUNT 160 x10^3/uL (140-400); RED BLOOD COUNT 2.77 x10^6/uL (4.30-5.70); RED CELL DISTRIBUTION WIDTH 15.4 % (11.5-14.5); WHITE BLOOD COUNT 7.1 x10^3/uL (4.0-11.0)
[2019-01-31 20:04] LABS: PROTHROMBIN TIME PATIENT 14.1 SEC (11.7-14.0)
[2019-01-31] MEDS ORDERED: CALCIUM GLUCONATE 1,000 MG/10 ML VIAL. IVP ONE ×2 (20:15→21:00)
[2019-01-31] MEDS ORDERED: SODIUM BICARB ADULT 8.4% 50 MEQ/50 ML DISP.SYRIN. IV ONE (21:00)
[2019-01-31] MEDS ORDERED: ALBUTEROL SULFATE 2.5 MG/3 ML NEBU. CONT NEB ONE (21:00)
[2019-01-31 21:20] LABS: ALBUMIN 2.9 g/dL (3.4-5.0); ALBUMIN/GLOBULIN RATIO 0.8 (1.0-1.7); CREATININE 17.4 mg/dL (0.7-1.3); GFR 2.9; MAGNESIUM 2.2 mg/dL (1.8-2.4); TOTAL BILIRUBIN 0.4 mg/dL (0.2-1.0); TOTAL PROTEIN 6.6 g/dL (6.4-8.2)
[2019-01-31 21:24] LABS: CALCIUM 5.8 mg/dL (8.5-10.1); POTASSIUM 7.3 mmol/L (3.5-5.1)
[2019-01-31] MEDS ORDERED: MONTELUKAST SODIUM 10 MG TABLET. PO PRN (21:30)
[2019-01-31] MEDS ORDERED: ACETAMINOPHEN 325 MG TABLET. PO PRN (21:30)
[2019-01-31] MEDS ORDERED: LACTULOSE 20 GM/30 ML SOLUTION. PO PRN (21:30)
[2019-01-31] MEDS ORDERED: oxyCODONE/APAP 5/325 1 TAB TABLET PO PRN (21:30)
[2019-01-31] MEDS ORDERED: ONDANSETRON PF 4 MG/2 ML VIAL. IV PRN (21:30)
[2019-01-31] MEDS ORDERED: diazePAM 5 MG TABLET PO PRN (21:30)
[2019-01-31] MEDS ORDERED: LOPERAMIDE 2 MG CAPSULE PO PRN (21:30)
[2019-01-31] MEDS ORDERED: 0.9 % SODIUM CHLORIDE 10 ML DISP.SYRIN. IV PRN (21:30)
[2019-01-31] MEDS ORDERED: HYDROcodone/APAP 5/325MG 1 TAB TABLET PO PRN (21:30)
[2019-01-31] MEDS ORDERED: IV NORMAL SALINE 1000ML BAG 1,000 ML IV PRN ×2 (22:09)
[2019-01-31] MEDS ORDERED: DIALYSIS PATIENT. MC PRN ×2 (22:15)
[2019-01-31 22:30] VITALS: BP 112/55
[2019-01-31] MEDS ORDERED: INSULIN GLARGINE 300 UNITS/3 ML INSULN.PEN. SQ SCH (22:30)
--- NOTE | 2019-01-31 22:30 | NUR ---
Pt admitted to room 115 via cart from ED accompanied by ED RN and family to follow. Pt is sleepy but oriented x4 and denies pain. Pt oriented to ICU routine, nursing call light, TV/ Bed control, pain scale, diet, activity, no smoking campus, and plan for dialysis tonight. Pt states last peritoneal dialysis was 01/30 at continuous HS and denies problems. He is unable to recall last hemodialysis run. Pt's peritoneal catheter is in the left abdomen, and he also has left upper and lower arm AV shunt. Pt verbalizes understanding of above. See Admission information and admission assessment to follow.
--- NOTE | 2019-01-31 22:44 | PDOC1 ---
History and Physical Date of Admission Date of Admission 01/31/2019 Identification/Chief Complaint Chief Complaint Hyperkalemia Source Source: Chart review History of Present Illness History of Present Illness Patient is a 53-year-old gentleman with past medical history of hypertension diabetes and end-stage renal disease on hemodialysis who is being transitioned to peritoneal dialysis at the present time. The patient was sent to the emergency department when he was found to have hyperkalemia and EKG findings of peak T waves prompted admission for correction of his electrolyte disturbance. The patient at the time my evaluation is snoring quite loudly and I am unable to wake him up. Patient did percent also a hypoglycemic event as per ER nurses. We were requested to admit the patient to the intensive care unit to continue with his treatment. He did not give a history of chest discomfort no palpitations no shortness of breath no headache no upgoing toe. No nausea vomiting or diarrhea was reported. He does not seem to be in acute distress of the time of my visit Of note is that he also has a severe hypocalcemia, nephrology computing consultant has been contacted and HD will arranged emergently at this time. Past Medical History Cardiovascular: CAD, HTN, Hyperlipidemia Pulmonary: COPD CENTRAL NERVOUS SYSTEM: CVA GI: Constipation Heme/Onc: Anemia NOS Renal/: Chronic renal failure, Benign prostatic enlarg. Endocrine: Diabetes, Hyperparathyroidism Past Surgical History Past Surgical History: Total knee replacement, Other Family History Family History: Hypertension Social History ALCOHOL: none Drugs: None Current Medications Current Medications Current Medications Medications (Trade) Dose Ordered Sig/Rosalino Start Time Stop Time Status Last Admin Dose Admin Acetaminophen (Tylenol) 650 mg PRN Q6HRS PRN 01/31/19 21:30 Acetaminophen/ Hydrocodone Bitart (Lortab 5/325) 1 tab PRN Q6HRS PRN 01/31/19 21:30 Albuterol Sulfate (Ventolin Neb Soln) 10 mg 1X ONCE 01/31/19 21:00 01/31/19 21:02 DC 01/31/19 21:11 10 MG Amlodipine Besylate (Norvasc) 10 mg DAILY 02/01/19 09:00 Aspirin (Children'S Aspirin) 81 mg [id number] 02/01/19 08:00 Atorvastatin Calcium (Lipitor) 40 mg HS 02/01/19 21:00 Calcium Acetate (Phoslo) 667 mg TIDWMEALS 02/01/19 08:00 Calcium Gluconate (Calcium Gluconate) 1,000 mg 1X ONCE 01/31/19 21:00 01/31/19 21:02 DC Carvedilol (Coreg) 25 mg BIDWMEALS 02/01/19 08:00 Dextrose (Dextrose 50%-Water Syringe) 25 gm 1X ONCE 01/31/19 19:45 01/31/19 19:46 DC 01/31/19 19:50 25 GM Diazepam (Valium) 10 mg PRN Q12HR PRN 01/31/19 21:30 Folic Acid (Folic Acid) 1 mg DAILY 02/01/19 09:00 Furosemide (Lasix) 80 mg BID92 02/01/19 09:00 Gabapentin (Neurontin) 300 mg TID 02/01/19 09:00 Hydralazine HCl (Apresoline) 100 mg TID 02/01/19 09:00 Info (PHARMACY MONITORING -- do not chart) 1 each PRN DAILY PRN 01/31/19 22:15 Insulin Glargine (Lantus) 11 units QHS 01/31/19 22:30 Insulin Human Lispro (HumaLOG) 22 units TIDWMEALS 02/01/19 08:00 Lactulose (Lactulose) 20 gm PRN Q12HR PRN 01/31/19 21:30 Loperamide HCl (Imodium) 4 mg PRN Q8MIN PRN 01/31/19 21:30 Lorazepam (Ativan Inj) 0.5 mg PRN Q6HRS PRN 01/31/19 21:30 Montelukast Sodium (Singulair) 10 mg PRN QHS PRN 01/31/19 21:30 Ondansetron HCl (Zofran) 4 mg PRN Q6HRS PRN 01/31/19 21:30 Oxycodone/ Acetaminophen (Percocet 5/325) 1 tab PRN Q4HRS PRN 01/31/19 21:30 Sodium Bicarbonate (Sodium Bicarb Adult 8.4% Syr) 50 meq 1X ONCE 01/31/19 21:00 01/31/19 21:02 DC 01/31/19 21:06 50 MEQ Sodium Chloride 1,000 ml @ 400 mls/hr Q2H30M PRN 01/31/19 22:09 02/01/19 10:08 Sodium Chloride (Normal Saline Flush) 3 ml QSHIFT PRN 01/31/19 21:30 Tamsulosin HCl (Flomax) 0.4 mg HS 02/01/19 21:00 Allergies Allergies Allergies Coded Allergies Type Severity Reaction Last Updated Verified lamotrigine Allergy Intermediate HIVES, SHORTNESS OF BREATH 12/21/18 Yes ROS Review of System unable to assess due to lethargy Physical Exam Physical Exam GEN.: No apparent distress. snoring quite loudly HEENT: Head is normocephalic, atraumatic NECK: Supple. LUNGS: Clear to auscultation. HEART: RRR, S1, S2 present. Peripheral pulses intact ABDOMEN: Soft, nontender. Positive bowel sounds. EXTREMITIES: Without any cyanosis. NEUROLOGIC: no motor or sensory deficits, retracts to noxious stimuli PSYCHIATRIC: unable to assess SKIN: No ulcerations Vitals Vitals Vital Signs Date Time Temp Pulse Resp B/P (MAP) Pulse Ox O2 Delivery O2 Flow Rate FiO2 01/31/19 21:15 95 Room Air 01/31/19 20:51 74 133/63 (86) 01/31/19 19:48 18 01/31/19 19:25 97.8 97.8 Labs Labs Laboratory Tests Test 01/31/19 19:39 01/31/19 19:45 01/31/19 20:34 01/31/19 20:50 Glucose (Fingerstick) 52 mg/dL (70-99) 159 mg/dL (70-99) White Blood Count 7.1 x10^3/uL (4.0-11.0) Red Blood Count 2.77 x10^6/uL (4.30-5.70) Hemoglobin 8.9 g/dL (13.0-17.5) Hematocrit 27.1 % (39.0-53.0) Mean Corpuscular Volume 98 fL (79-100) Mean Corpuscular Hemoglobin 32 pg (25-35) Mean Corpuscular Hemoglobin Concent 33 g/dL (31-37) Red Cell Distribution Width 15.4 % (11.5-14.5) Platelet Count 160 x10^3/uL (140-400) Neutrophils (%) (Auto) 79 % (31-73) Lymphocytes (%) (Auto) 7 % (24-48) Monocytes (%) (Auto) 11 % (0-9) Eosinophils (%) (Auto) 2 % (0-3) Basophils (%) (Auto) 1 % (0-3) Neutrophils # (Auto) 5.7 x10^3uL (1.8-7.7) Lymphocytes # (Auto) 0.5 x10^3/uL (1.0-4.8) Monocytes # (Auto) 0.8 x10^3/uL (0.0-1.1) Eosinophils # (Auto) 0.1 x10^3/uL (0.0-0.7) Basophils # (Auto) 0.1 x10^3/uL (0.0-0.2) Prothrombin Time 14.1 SEC (11.7-14.0) Prothromb Time International Ratio 1.1 (0.8-1.1) Sodium Level 135 mmol/L (136-145) Potassium Level 7.3 mmol/L (3.5-5.1) Chloride Level 93 mmol/L (98-107) Carbon Dioxide Level 19 mmol/L (21-32) Anion Gap 23 (6-14) Blood Urea Nitrogen 89 mg/dL (8-26) Creatinine 17.4 mg/dL (0.7-1.3) Estimated GFR (Cockcroft-Gault) 2.9 BUN/Creatinine Ratio 5 (6-20) Glucose Level 159 mg/dL (70-99) Calcium Level 5.8 mg/dL (8.5-10.1) Magnesium Level 2.2 mg/dL (1.8-2.4) Total Bilirubin 0.4 mg/dL (0.2-1.0) Aspartate Amino Transf (AST/SGOT) 18 U/L (15-37) Alanine Aminotransferase (ALT/SGPT) 14 U/L (16-63) Alkaline Phosphatase 103 U/L (46-116) Troponin I Quantitative 0.045 ng/mL (0.000-0.055) YM-Qxx-R-Type Natriuretic Peptide 30232 pg/mL (0-124) Total Protein 6.6 g/dL (6.4-8.2) Albumin 2.9 g/dL (3.4-5.0) Albumin/Globulin Ratio 0.8 (1.0-1.7) Lipase 152 U/L (73-393) Ethyl Alcohol Level < 10 mg/dL (0-10) Laboratory Tests Test 01/31/19 19:39 01/31/19 19:45 01/31/19 20:34 01/31/19 20:50 Glucose (Fingerstick) 52 mg/dL (70-99) 159 mg/dL (70-99) White Blood Count 7.1 x10^3/uL (4.0-11.0) Red Blood Count 2.77 x10^6/uL (4.30-5.70) Hemoglobin 8.9 g/dL (13.0-17.5) Hematocrit 27.1 % (39.0-53.0) Mean Corpuscular Volume 98 fL (79-100) Mean Corpuscular Hemoglobin 32 pg (25-35) Mean Corpuscular Hemoglobin Concent 33 g/dL (31-37) Red Cell Distribution Width 15.4 % (11.5-14.5) Platelet Count 160 x10^3/uL (140-400) Neutrophils (%) (Auto) 79 % (31-73) Lymphocytes (%) (Auto) 7 % (24-48) Monocytes (%) (Auto) 11 % (0-9) Eosinophils (%) (Auto) 2 % (0-3) Basophils (%) (Auto) 1 % (0-3) Neutrophils # (Auto) 5.7 x10^3uL (1.8-7.7) Lymphocytes # (Auto) 0.5 x10^3/uL (1.0-4.8) Monocytes # (Auto) 0.8 x10^3/uL (0.0-1.1) Eosinophils # (Auto) 0.1 x10^3/uL (0.0-0.7) Basophils # (Auto) 0.1 x10^3/uL (0.0-0.2) Prothrombin Time 14.1 SEC (11.7-14.0) Prothromb Time International Ratio 1.1 (0.8-1.1) Sodium Level 135 mmol/L (136-145) Potassium Level 7.3 mmol/L (3.5-5.1) Chloride Level 93 mmol/L (98-107) Carbon Dioxide Level 19 mmol/L (21-32) Anion Gap 23 (6-14) Blood Urea Nitrogen 89 mg/dL (8-26) Creatinine 17.4 mg/dL (0.7-1.3) Estimated GFR (Cockcroft-Gault) 2.9 BUN/Creatinine Ratio 5 (6-20) Glucose Level 159 mg/dL (70-99) Calcium Level 5.8 mg/dL (8.5-10.1) Magnesium Level 2.2 mg/dL (1.8-2.4) Total Bilirubin 0.4 mg/dL (0.2-1.0) Aspartate Amino Transf (AST/SGOT) 18 U/L (15-37) Alanine Aminotransferase (ALT/SGPT) 14 U/L (16-63) Alkaline Phosphatase 103 U/L (46-116) Troponin I Quantitative 0.045 ng/mL (0.000-0.055) CN-Qay-Y-Type Natriuretic Peptide 65903 pg/mL (0-124) Total Protein 6.6 g/dL (6.4-8.2) Albumin 2.9 g/dL (3.4-5.0) Albumin/Globulin Ratio 0.8 (1.0-1.7) Lipase 152 U/L (73-393) Ethyl Alcohol Level < 10 mg/dL (0-10) VTE Prophylaxis Ordered VTE Prophylaxis Devices: Yes VTE Pharmacological Prophylaxi: Yes Assessment/Plan Assessment/Plan Hyperkalemia with concerning ekg changes Severe hypocalcemia ESRD on HD transitioning to PD prior to his admission Severe dehydration History of HTN History of DM tyep 2 insulin requiring currenlty with hypoglycemic event Encephalopathy as a consequence of his metabolic and electrolytic derangement Plan: HD as per computing consultant resume home meds hold ARB repeat labs after dialysis further recommendations based on clinical course. DVT prophylaxis: heparin GRACE LIZAMA MD January 31, 2019 22:44
[2019-01-31 22:45] VITALS: BP 111/54
[2019-01-31 23:00] VITALS: BP 118/56
[2019-01-31 23:15] VITALS: BP 119/54
--- NOTE | 2019-01-31 23:26 | RAD ---
AP portable chest radiograph 01/31/2019 Clinical History: Hypoglycemia and weakness. An AP erect portable digital radiograph of the chest was obtained. Comparison study is dated 10/13/2018. The cardiac silhouette is mildly enlarged. The thoracic aorta is tortuous. Atherosclerotic calcification thoracic aorta is seen. A right perihilar infiltrate is seen. No pneumothorax or pleural effusion is noted. The osseous structures are unchanged. Impression: Right perihilar infiltrate. Electronically signed by: Anthony Lazcano MD (01/31/2019 11:23 PM) [facility]
[2019-01-31 23:30] VITALS: BP 127/54
[2019-01-31 23:59] VITALS: BP 137/54
[2019-02-01] VITALS (7 sets, daily range): BP systolic 149–175; BP diastolic 58–78
--- NOTE | 2019-02-01 01:50 | NUR ---
Hemodialysis started at 2250 and completed at 0150 with a total of 2L removed per hosting engineer. tunnel kiln firer held pressure to shunt until hemostasis obtained, dressings applied. Pt tolerated procedure well.
[2019-02-01 05:26] LABS: HEMATOCRIT 26.8 % (39.0-53.0); HEMOGLOBIN 8.7 g/dL (13.0-17.5); RED BLOOD COUNT 2.73 x10^6/uL (4.30-5.70); RED CELL DISTRIBUTION WIDTH 15.2 % (11.5-14.5); WHITE BLOOD COUNT 7.9 x10^3/uL (4.0-11.0)
[2019-02-01 05:35] LABS: ALBUMIN 2.6 g/dL (3.4-5.0); ALBUMIN/GLOBULIN RATIO 0.7 (1.0-1.7); CALCIUM 6.9 mg/dL (8.5-10.1); CREATININE 9.5 mg/dL (0.7-1.3); GFR 5.8; MAGNESIUM 1.9 mg/dL (1.8-2.4); PHOSPHORUS 7.7 mg/dL (2.6-4.7); POTASSIUM 4.3 mmol/L (3.5-5.1); TOTAL BILIRUBIN 0.4 mg/dL (0.2-1.0); TOTAL PROTEIN 6.1 g/dL (6.4-8.2)
[2019-02-01] MEDS ORDERED: INSULIN LISPRO 300 UNITS/3 ML INSULN.PEN. SQ ONE (07:00)
--- NOTE | 2019-02-01 07:10 | NUR ---
Patient started stating he needed to "go home" at 0100, after discussion and reason patient was admitted/dialysis, patient did agree to stay until am lab results received. AT 0600 K+ down to 4.3, BUN 42 and Cr 9.5--all improved from admission. Patient states he is leaving AMA and has called his . Dr Javed notified at [address] Caballero notified at 0650 both asked to encourage patient to stay until he is seen by a physician. Dr Caballero also notified of am FSBS [id number] and orders received to give 12 UNITS of LISPO Insulin subcutaneously. Again discussed with patient physicians wishes for patient to stay but he declined. IV in left hand dc'd. Patient signed AMA paperwork and ambulated to ED entrance accompanied by this RN, Security, and patient's and son. Encouraged patient to monitor blood glucoses, continue peritoneal dialysis and follow up with his PCP and Boat Mechanic GINA.
--- NOTE | 2019-02-01 07:16 | EKG ---
[facility] [address] [place] [address] Test Date: 2019-01-31 Test Time: 20:01:33 Pat Name: DUANE IQBAL Department: Room: 115 Gender: M Tobacco Roller: : 1965 Requested By: GINA SILVESTRE Order Number: [id number] Reading MD: Nick Price Measurements Intervals Canadian Rate: 72 P: 61 ID: [id number] QRS: 39 QRSD: 94 T: 1 QT: 440 QTc: 488 Interpretive Statements SINUS RHYTHM PROLONGED ID INTERVAL PROLONGED QT NON SPECIFIC ST-T ABNORMALITY (ELEVATION) Electronically Signed On 02-23-2019 12:09:52 CDT by Nick Price
[2019-02-01] MEDS ORDERED: CALCIUM ACETATE 667 MG CAPSULE PO SCH (08:00)
[2019-02-01] MEDS ORDERED: INSULIN LISPRO 300 UNITS/3 ML INSULN.PEN. SQ SCH (08:00)
[2019-02-01] MEDS ORDERED: ASPIRIN CHEWABLE 81 MG TABLET. PO SCH (08:00)
[2019-02-01] MEDS ORDERED: CARVEDILOL 12.5 MG TABLET. PO SCH (08:00)
[2019-02-01] MEDS ORDERED: FOLIC ACID 1 MG TABLET. PO SCH (09:00)
[2019-02-01] MEDS ORDERED: FUROSEMIDE 80 MG TABLET. PO SCH (09:00)
[2019-02-01] MEDS ORDERED: GABAPENTIN 300 MG CAPSULE. PO SCH (09:00)
[2019-02-01] MEDS ORDERED: amLODIPine BESYLATE 10 MG TABLET PO SCH (09:00)
--- NOTE | 2019-02-01 14:38 | PDOC2 ---
CONSULT Date of Consult Date of Consult DATE: 02/01/19 TIME: 14:26 Reason for Consult Reason for Consult: ESRD, Hyperkalemia Source Source: Chart review History of Present Illness Reason for Visit: Renal was consulted by ER physician for possible emergent HD on 01/31 for Hyperkalemia with EKG changes (per / Deja) and blood sugar 34 unconscious for about 15 minutes no head trauma patient did not eat dinner he's been feeling weak he last used insulin earlier in the morning. He just switched to peritoneal dialysis about 2 weeks ago his blood pressures been running a little soft, like 110 range that is unusual for him. 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 Endocrine: Diabetes, Hyperparathyroidism Past Surgical History Past Surgical History: Total knee replacement, Other Family History Family History: Hypertension Social History ALCOHOL: none Drugs: None Lives: with Family Current Medications Current Medications Current Medications Dextrose (Dextrose 50%-Water Syringe) 25 gm 1X ONCE IV Last administered on 01/31/19at 19:50; Start 01/31/19 at 19:45; Stop 01/31/19 at 19:46; Status DC Calcium Gluconate (Calcium Gluconate) 1,000 mg 1X ONCE IVP Last administered on 01/31/19at 21:04; Start 01/31/19 at 20:15; Stop 01/31/19 at 20:16; Status DC Calcium Gluconate (Calcium Gluconate) 1,000 mg 1X ONCE IVP Last administered on 01/31/19at 21:00; Start 01/31/19 at 21:00; Stop 01/31/19 at 21:02; Status DC Sodium Bicarbonate (Sodium Bicarb Adult 8.4% Syr) 50 meq 1X ONCE IV Last administered on 01/31/19at 21:06; Start 01/31/19 at 21:00; Stop 01/31/19 at 21:02; Status DC Albuterol Sulfate (Ventolin Neb Soln) 10 mg 1X ONCE CONT NEB Last administered on 01/31/19at 21:11; Start 01/31/19 at 21:00; Stop 01/31/19 at 21:02; Status DC Acetaminophen (Tylenol) 650 mg PRN Q6HRS PRN PO Headaches, Temp > 101.5'; Start 01/31/19 at 21:30; Stop 02/01/19 at 07:17; Status DC Lorazepam (Ativan Inj) 0.5 mg PRN Q6HRS PRN IV ANXIETY / AGITATION; Start 01/31/19 at 21:30; Stop 02/01/19 at 07:17; Status DC Ondansetron HCl (Zofran) 4 mg PRN Q6HRS PRN IV NAUSEA/VOMITING; Start 01/31/19 at 21:30; Stop 02/01/19 at 07:17; Status DC Sodium Chloride (Normal Saline Flush) 3 ml QSHIFT PRN IV AFTER MEDS AND BLOOD DRAWS; Start 01/31/19 at 21:30; Stop 02/01/19 at 07:17; Status DC Oxycodone/ Acetaminophen (Percocet 5/325) 1 tab PRN Q4HRS PRN PO MILD PAIN, 1ST CHOICE; Start 01/31/19 at 21:30; Stop 02/01/19 at 07:17; Status DC Lactulose (Lactulose) 20 gm PRN Q12HR PRN PO CONSTIPATION; Start 01/31/19 at 21:30; Stop 02/01/19 at 07:17; Status DC Amlodipine Besylate (Norvasc) 10 mg DAILY PO ; Start 02/01/19 at 09:00; Stop 02/01/19 at 09:00; Status DC Aspirin (Children'S Aspirin) 81 mg DAILYWBKFT PO ; Start 02/01/19 at 08:00; Stop 02/01/19 at 08:00; Status DC Atorvastatin Calcium (Lipitor) 40 mg HS PO ; Start 02/01/19 at 21:00; Stop 02/01/19 at 21:00; Status DC Folic Acid (Folic Acid) 1 mg DAILY PO ; Start 02/01/19 at 09:00; Stop 02/01/19 at 09:00; Status DC Furosemide (Lasix) 80 mg BID92 PO ; Start 02/01/19 at 09:00; Stop 02/01/19 at 09:00; Status DC Acetaminophen/ Hydrocodone Bitart (Lortab 5/325) 1 tab PRN Q6HRS PRN PO PAIN; Start 01/31/19 at 21:30; Stop 02/01/19 at 07:17; Status DC Insulin Glargine (Lantus) 11 units QHS SQ ; Start 01/31/19 at 22:30; Stop 02/01/19 at 07:17; Status DC Tamsulosin HCl (Flomax) 0.4 mg HS PO ; Start 02/01/19 at 21:00; Stop 02/01/19 at 21:00; Status DC Calcium Acetate (Phoslo) 667 mg TIDWMEALS PO ; Start 02/01/19 at 08:00; Stop 02/01/19 at 08:00; Status DC Carvedilol (Coreg) 25 mg BIDWMEALS PO ; Start 02/01/19 at 08:00; Stop 02/01/19 at 08:00; Status DC Diazepam (Valium) 10 mg PRN Q12HR PRN PO ANXIETY / AGITATION; Start 01/31/19 at 21:30; Stop 02/01/19 at 07:17; Status DC Gabapentin (Neurontin) 300 mg TID PO ; Start 02/01/19 at 09:00; Stop 02/01/19 at 09:00; Status DC Hydralazine HCl (Apresoline) 100 mg TID PO ; Start 02/01/19 at 09:00; Stop 02/01/19 at 09:00; Status DC Insulin Human Lispro (HumaLOG) 22 units TIDWMEALS SQ ; Start 02/01/19 at 08:00; Stop 02/01/19 at 08:00; Status DC Loperamide HCl (Imodium) 4 mg PRN Q8MIN PRN PO DIARRHEA; Start 01/31/19 at 21:30; Stop 02/01/19 at 07:17; Status DC Montelukast Sodium (Singulair) 10 mg PRN QHS PRN PO ALLERGIES; Start 01/31/19 at 21:30; Stop 02/01/19 at 07:17; Status DC Sodium Chloride 1,000 ml @ 1,000 mls/hr Q1H PRN IV hypotension; Start 01/31/19 at 22:09; Stop 02/01/19 at 04:08; Status DC Sodium Chloride 1,000 ml @ 400 mls/hr Q2H30M PRN IV PATENCY; Start 01/31/19 at 22:09; Stop 02/01/19 at 07:17; Status DC Info (PHARMACY MONITORING -- do not chart) 1 each PRN DAILY PRN MC SEE COMMENTS; Start 01/31/19 at 22:15; Stop 02/01/19 at 07:17; Status DC Info (PHARMACY MONITORING -- do not chart) 1 each PRN DAILY PRN MC SEE COMMENTS; Start 01/31/19 at 22:15; Stop 02/01/19 at 07:17; Status DC Insulin Human Lispro (HumaLOG) 12 units 1X ONCE SQ Last administered on 02/01/19at 06:49; Start 02/01/19 at 07:00; Stop 02/01/19 at 07:01; Status DC Active Scripts Active Reported Liberal 5-325 Tablet (Acetaminophen/Hydrocodone Bitart) 1 Each Tablet 1 Tab PO PRN Q6HRS PRN Liberal 5-325 Tablet (Acetaminophen/Hydrocodone Bitart) 1 Each Tablet 1-2 Tab PO Q4-6HRS LAST DOSE GIVEN: 12/21/18 at 1500 so next dose at 7:00PM as needed for pain Calcium Acetate 667 Mg Tablet 667 Mg PO TIDWMEALS Tamsulosin Hcl 0.4 Mg Cap.er.24h 1 Cap PO HS Montelukast Sodium Tablet (Montelukast Sodium) 10 Mg Tablet 1 Tab PO HS PRN Ondansetron Odt (Ondansetron) 4 Mg Tab.rapdis 1 Tab PO PRN Q6-8HRS PRN Loperamide (Loperamide Hcl) 2 Mg Tablet 4 Mg PO PRN Q8MIN Lantus Solostar (Insulin Glargine,Hum.rec.anlog) 100 Unit/1 Ml Insuln.pen 11 Unit SQ QHS Hydralazine Hcl 100 Mg Tablet 1 Tab PO TID Humalog (Insulin Lispro) 100 Unit/1 Ml Cartridge 22 Unit SQ TIDWMEALS Gabapentin 600 Mg Tablet 300 Mg PO TID Furosemide 80 Mg Tablet 1 Tab PO BID Folic Acid 1 Mg Tablet 1 Tab PO DAILY Diazepam 10 Mg Tablet 10 Mg PO PRN Q12HR PRN Cozaar (Losartan Potassium) 100 Mg Tablet 100 Mg PO HS Carvedilol 25 Mg Tablet 25 Mg PO BIDWMEALS Atorvastatin Calcium 40 Mg Tablet 40 Mg PO HS Aspirin 81 Mg Tab.chew 1 Tab PO DAILY Amlodipine Besylate 10 Mg Tablet 10 Mg PO DAILY Allergies Allergies: Coded Allergies: lamotrigine (Verified Allergy, Intermediate, HIVES, SHORTNESS OF BREATH, 12/21/18) ROS Review of System Didnt see Pt Physical Exam Physical Exam As per Hospitalist -- GEN.: No apparent distress. snoring quite loudly HEENT: Head is normocephalic, atraumatic NECK: Supple. LUNGS: Clear to auscultation. HEART: RRR, S1, S2 present. Peripheral pulses intact ABDOMEN: Soft, nontender. Positive bowel sounds. EXTREMITIES: Without any cyanosis. 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 No concerns voiced during the treatment Pt left AMA Hyperkalemia- with EKG changes per ER MD Emergent HD as above Hypoglycemia at presentation Later Hyperglycemia Pt left AMA Labs Labs Laboratory Tests Test 01/31/19 19:39 01/31/19 19:45 01/31/19 20:34 01/31/19 20:50 Glucose (Fingerstick) 52 mg/dL (70-99) 159 mg/dL (70-99) White Blood Count 7.1 x10^3/uL (4.0-11.0) Red Blood Count 2.77 x10^6/uL (4.30-5.70) Hemoglobin 8.9 g/dL (13.0-17.5) Hematocrit 27.1 % (39.0-53.0) Mean Corpuscular Volume 98 fL (79-100) Mean Corpuscular Hemoglobin 32 pg (25-35) Mean Corpuscular Hemoglobin Concent 33 g/dL (31-37) Red Cell Distribution Width 15.4 % (11.5-14.5) Platelet Count 160 x10^3/uL (140-400) Neutrophils (%) (Auto) 79 % (31-73) Lymphocytes (%) (Auto) 7 % (24-48) Monocytes (%) (Auto) 11 % (0-9) Eosinophils (%) (Auto) 2 % (0-3) Basophils (%) (Auto) 1 % (0-3) Neutrophils # (Auto) 5.7 x10^3uL (1.8-7.7) Lymphocytes # (Auto) 0.5 x10^3/uL (1.0-4.8) Monocytes # (Auto) 0.8 x10^3/uL (0.0-1.1) Eosinophils # (Auto) 0.1 x10^3/uL (0.0-0.7) Basophils # (Auto) 0.1 x10^3/uL (0.0-0.2) Prothrombin Time 14.1 SEC (11.7-14.0) Prothromb Time International Ratio 1.1 (0.8-1.1) Sodium Level 135 mmol/L (136-145) Potassium Level 7.3 mmol/L (3.5-5.1) Chloride Level 93 mmol/L (98-107) Carbon Dioxide Level 19 mmol/L (21-32) Anion Gap 23 (6-14) Blood Urea Nitrogen 89 mg/dL (8-26) Creatinine 17.4 mg/dL (0.7-1.3) Estimated GFR (Cockcroft-Gault) 2.9 BUN/Creatinine Ratio 5 (6-20) Glucose Level 159 mg/dL (70-99) Calcium Level 5.8 mg/dL (8.5-10.1) Magnesium Level 2.2 mg/dL (1.8-2.4) Total Bilirubin 0.4 mg/dL (0.2-1.0) Aspartate Amino Transf (AST/SGOT) 18 U/L (15-37) Alanine Aminotransferase (ALT/SGPT) 14 U/L (16-63) Alkaline Phosphatase 103 U/L (46-116) Troponin I Quantitative 0.045 ng/mL (0.000-0.055) TM-Azf-Y-Type Natriuretic Peptide 54059 pg/mL (0-124) Total Protein 6.6 g/dL (6.4-8.2) Albumin 2.9 g/dL (3.4-5.0) Albumin/Globulin Ratio 0.8 (1.0-1.7) Lipase 152 U/L (73-393) Ethyl Alcohol Level < 10 mg/dL (0-10) Test 02/01/19 00:09 02/01/19 05:10 02/01/19 06:34 Glucose (Fingerstick) 290 mg/dL (70-99) 459 mg/dL (70-99) White Blood Count 7.9 x10^3/uL (4.0-11.0) Red Blood Count 2.73 x10^6/uL (4.30-5.70) Hemoglobin 8.7 g/dL (13.0-17.5) Hematocrit 26.8 % (39.0-53.0) Mean Corpuscular Volume 98 fL (79-100) Mean Corpuscular Hemoglobin 32 pg (25-35) Mean Corpuscular Hemoglobin Concent 33 g/dL (31-37) Red Cell Distribution Width 15.2 % (11.5-14.5) Platelet Count 132 x10^3/uL (140-400) Sodium Level 136 mmol/L (136-145) Potassium Level 4.3 mmol/L (3.5-5.1) Chloride Level 94 mmol/L (98-107) Carbon Dioxide Level 27 mmol/L (21-32) Anion Gap 15 (6-14) Blood Urea Nitrogen 42 mg/dL (8-26) Creatinine 9.5 mg/dL (0.7-1.3) Estimated GFR (Cockcroft-Gault) 5.8 BUN/Creatinine Ratio 4 (6-20) Glucose Level 446 mg/dL (70-99) Calcium Level 6.9 mg/dL (8.5-10.1) Phosphorus Level 7.7 mg/dL (2.6-4.7) Magnesium Level 1.9 mg/dL (1.8-2.4) Total Bilirubin 0.4 mg/dL (0.2-1.0) Aspartate Amino Transf (AST/SGOT) 19 U/L (15-37) Alanine Aminotransferase (ALT/SGPT) 13 U/L (16-63) Alkaline Phosphatase 99 U/L (46-116) Total Protein 6.1 g/dL (6.4-8.2) Albumin 2.6 g/dL (3.4-5.0) Albumin/Globulin Ratio 0.7 (1.0-1.7) Laboratory Tests Test 01/31/19 19:39 01/31/19 19:45 01/31/19 20:34 01/31/19 20:50 Glucose (Fingerstick) 52 mg/dL (70-99) 159 mg/dL (70-99) White Blood Count 7.1 x10^3/uL (4.0-11.0) Red Blood Count 2.77 x10^6/uL (4.30-5.70) Hemoglobin 8.9 g/dL (13.0-17.5) Hematocrit 27.1 % (39.0-53.0) Mean Corpuscular Volume 98 fL (79-100) Mean Corpuscular Hemoglobin 32 pg (25-35) Mean Corpuscular Hemoglobin Concent 33 g/dL (31-37) Red Cell Distribution Width 15.4 % (11.5-14.5) Platelet Count 160 x10^3/uL (140-400) Neutrophils (%) (Auto) 79 % (31-73) Lymphocytes (%) (Auto) 7 % (24-48) Monocytes (%) (Auto) 11 % (0-9) Eosinophils (%) (Auto) 2 % (0-3) Basophils (%) (Auto) 1 % (0-3) Neutrophils # (Auto) 5.7 x10^3uL (1.8-7.7) Lymphocytes # (Auto) 0.5 x10^3/uL (1.0-4.8) Monocytes # (Auto) 0.8 x10^3/uL (0.0-1.1) Eosinophils # (Auto) 0.1 x10^3/uL (0.0-0.7) Basophils # (Auto) 0.1 x10^3/uL (0.0-0.2) Prothrombin Time 14.1 SEC (11.7-14.0) Prothromb Time International Ratio 1.1 (0.8-1.1) Sodium Level 135 mmol/L (136-145) Potassium Level 7.3 mmol/L (3.5-5.1) Chloride Level 93 mmol/L (98-107) Carbon Dioxide Level 19 mmol/L (21-32) Anion Gap 23 (6-14) Blood Urea Nitrogen 89 mg/dL (8-26) Creatinine 17.4 mg/dL (0.7-1.3) Estimated GFR (Cockcroft-Gault) 2.9 BUN/Creatinine Ratio 5 (6-20) Glucose Level 159 mg/dL (70-99) Calcium Level 5.8 mg/dL (8.5-10.1) Magnesium Level 2.2 mg/dL (1.8-2.4) Total Bilirubin 0.4 mg/dL (0.2-1.0) Aspartate Amino Transf (AST/SGOT) 18 U/L (15-37) Alanine Aminotransferase (ALT/SGPT) 14 U/L (16-63) Alkaline Phosphatase 103 U/L (46-116) Troponin I Quantitative 0.045 ng/mL (0.000-0.055) GP-Nqu-W-Type Natriuretic Peptide 39137 pg/mL (0-124) Total Protein 6.6 g/dL (6.4-8.2) Albumin 2.9 g/dL (3.4-5.0) Albumin/Globulin Ratio 0.8 (1.0-1.7) Lipase 152 U/L (73-393) Ethyl Alcohol Level < 10 mg/dL (0-10) Test 02/01/19 00:09 02/01/19 05:10 02/01/19 06:34 Glucose (Fingerstick) 290 mg/dL (70-99) 459 mg/dL (70-99) White Blood Count 7.9 x10^3/uL (4.0-11.0) Red Blood Count 2.73 x10^6/uL (4.30-5.70) Hemoglobin 8.7 g/dL (13.0-17.5) Hematocrit 26.8 % (39.0-53.0) Mean Corpuscular Volume 98 fL (79-100) Mean Corpuscular Hemoglobin 32 pg (25-35) Mean Corpuscular Hemoglobin Concent 33 g/dL (31-37) Red Cell Distribution Width 15.2 % (11.5-14.5) Platelet Count 132 x10^3/uL (140-400) Sodium Level 136 mmol/L (136-145) Potassium Level 4.3 mmol/L (3.5-5.1) Chloride Level 94 mmol/L (98-107) Carbon Dioxide Level 27 mmol/L (21-32) Anion Gap 15 (6-14) Blood Urea Nitrogen 42 mg/dL (8-26) Creatinine 9.5 mg/dL (0.7-1.3) Estimated GFR (Cockcroft-Gault) 5.8 BUN/Creatinine Ratio 4 (6-20) Glucose Level 446 mg/dL (70-99) Calcium Level 6.9 mg/dL (8.5-10.1) Phosphorus Level 7.7 mg/dL (2.6-4.7) Magnesium Level 1.9 mg/dL (1.8-2.4) Total Bilirubin 0.4 mg/dL (0.2-1.0) Aspartate Amino Transf (AST/SGOT) 19 U/L (15-37) Alanine Aminotransferase (ALT/SGPT) 13 U/L (16-63) Alkaline Phosphatase 99 U/L (46-116) Total Protein 6.1 g/dL (6.4-8.2) Albumin 2.6 g/dL (3.4-5.0) Albumin/Globulin Ratio 0.7 (1.0-1.7) Review All relevant outside records, renal labs, imaging studies, telemetry/EKG's were reviewed. IVAN APARICIO MD February 01, 2019 14:38
[2019-02-01] MEDS ORDERED: TAMSULOSIN 0.4 MG CAP.ER.24H. PO SCH (21:00)
[2019-02-01] MEDS ORDERED: ATORVASTATIN CALCIUM 40 MG TABLET. PO SCH (21:00)
== END 2019-02-01 07:10 | disposition left against medical advice (07) | DRG 640 ==
LOC: ER 19:10 → 1 WEST ICU 21:51
PROVIDERS: ADMIT Internal Medicine; ATTEND Internal Medicine
PROC: 5A1D70Z Performance of Urinary Filtration, Intermittent, Less than 6 Hours Per Day (ICD-10-PCS; principal; 2019-01-31)
DX: E87.5 Hyperkalemia (principal); N18.6 End stage renal disease; G93.41 Metabolic encephalopathy; I12.0 Hypertensive chronic kidney disease with stage 5 chronic kidney disease or end stage renal disease; E11.649 Type 2 diabetes mellitus with hypoglycemia without coma; E11.22 Type 2 diabetes mellitus with diabetic chronic kidney disease; E78.5 Hyperlipidemia, unspecified; E86.0 Dehydration; Z53.21 Procedure and treatment not carried out due to patient leaving prior to being seen by health care provider; M19.90 Unspecified osteoarthritis, unspecified site; Z96.659 Presence of unspecified artificial knee joint; E11.65 Type 2 diabetes mellitus with hyperglycemia; I25.10 Atherosclerotic heart disease of native coronary artery without angina pectoris; J44.9 Chronic obstructive pulmonary disease, unspecified; E21.3 Hyperparathyroidism, unspecified; Z79.4 Long term (current) use of insulin; Z82.49 Family history of ischemic heart disease and other diseases of the circulatory system; Z86.73 Personal history of transient ischemic attack (TIA), and cerebral infarction without residual deficits; Z99.2 Dependence on renal dialysis; Z88.8 Allergy status to other drugs, medicaments and biological substances
CPT/HCPCS: 36415; 71045; 80053; 82962; 83690; 83735; 83880; 84100; 84484; 85025; 85027; 85610; 93005; 94644; 96374; 96375; 96376; G0480; J0610; J1815; J7042; J7613; 99291-25

== ENCOUNTER 2019-03-07 10:31 | Emergency (ER) | payer MEDICARE ==
[~2019-03-07] VITALS: Ht 172.7 cm; Wt 65.8 kg
[~2019-03-07 10:31] MED LIST changes: +MONT10TA49 PO; -MONT10TA9 PO
[2019-03-07 12:11] LABS: BASO # 0.1 x10^3/uL (0.0-0.2); BASO % 1 % (0-3); EOS # 0.3 x10^3/uL (0.0-0.7); EOS % 3 % (0-3); HEMOGLOBIN 8.6 g/dL (13.0-17.5); LYMPH # 0.6 x10^3/uL (1.0-4.8); LYMPH % 6 % (24-48); MEAN CORPUSCULAR HEMOGLOBIN 32 pg (25-35); MEAN CORPUSCULAR HGB CONC 33 g/dL (31-37); MEAN CORPUSCULAR VOLUME 96 fL (79-100); MONO % 8 % (0-9); NEUT # 9.6 x10^3uL (1.8-7.7); NEUT % 82 % (31-73); PLATELET COUNT 320 x10^3/uL (140-400); RED BLOOD COUNT 2.71 x10^6/uL (4.30-5.70); WHITE BLOOD COUNT 11.7 x10^3/uL (4.0-11.0)
[2019-03-07 12:13] LABS: CALCIUM 7.4 mg/dL (8.5-10.1); CREATININE 16.3 mg/dL (0.7-1.3); GFR 3.1; POTASSIUM 5.3 mmol/L (3.5-5.1)
[2019-03-07 12:20] LABS: ALBUMIN 2.5 g/dL (3.4-5.0); ALBUMIN/GLOBULIN RATIO 0.6 (1.0-1.7); TOTAL BILIRUBIN 0.4 mg/dL (0.2-1.0)
[2019-03-07 12:23] VITALS: BP 160/65
[2019-03-07] MEDS ORDERED: INSULIN REGULAR 100 UNIT/ML 3ML VIAL. SQ ONE (12:30)
--- NOTE | 2019-03-07 13:15 | PHYS DOC ---
Past Medical History Past Medical History: COPD, CVA, Diabetes-Type II, Hypertension, DE, Renal Failure, Other Additional Past Medical Histor: Peritoneal Dialysis Past Surgical History: Other Additional Past Surgical Histo: LEFT FA AV SHUNT, knees cleaned out, bilater foot reconstruction, Alcohol Use: None Drug Use: None Adult General Chief Complaint Chief Complaint: DIALYSIS PROBLEM HPI HPI 53-year-old chronically ill male who has end-stage renal disease on peritoneal dialysis presents secondary to some blood-tinged peritoneal fluid. He denies any abdominal pain fever chills nausea or vomiting. He does state that he was set [facility] recently had a bad experience but was noted to have an H&H of 5 in 15 and was transfused. He states after [place] fusion his hemoglobin was up around 7. He states he does take his peritoneal dialysis as scheduled. He is here today because he is worried that his blood count may be low again and that the primary source of bleeding may be in his peritoneum.[] Review of Systems Review of Systems Constitutional: Denies fever or chills [] Eyes: Denies change in visual acuity, redness, or eye pain [] HENT: Denies nasal congestion or sore throat [] Respiratory: Denies cough or shortness of breath [] Cardiovascular: No additional information not addressed in HPI [] GI: Denies abdominal pain, nausea, vomiting, bloody stools or diarrhea, he has a peritoneal catheter in place [] : Denies dysuria or hematuria [] Musculoskeletal: Denies back pain or joint pain [] Integument: Denies rash or skin lesions [] Neurologic: Denies headache, focal weakness or sensory changes [] Endocrine: Denies polyuria or polydipsia [] All other systems were reviewed and found to be within normal limits, except as documented in this note. Current Medications Current Medications Current Medications Medications (Trade) Dose Ordered Sig/Rosalino Start Time Stop Time Status Last Admin Dose Admin Insulin Human Regular (HumuLIN R VIAL) 20 unit 1X ONCE 03/07/19 12:30 03/07/19 12:31 DC Allergies Allergies Allergies Coded Allergies Type Severity Reaction Last Updated Verified lamotrigine Allergy Intermediate HIVES, SHORTNESS OF BREATH 12/21/18 Yes Physical Exam Physical Exam Constitutional: Chronically ill-appearing male who appears older than his stated age but nontoxic[] HENT: Normocephalic, atraumatic, bilateral external ears normal, oropharynx moist, no oral exudates, nose normal. [] Eyes: PERRLA, EOMI, conjunctiva normal, no discharge. [] Neck: Normal range of motion, no tenderness, supple, no stridor. [] Cardiovascular:Heart rate regular rhythm, no murmur [] Lungs & Thorax: Bilateral breath sounds clear to auscultation [] Abdomen: Bowel sounds normal, soft, no tenderness, no masses, no pulsatile masses, peritoneal catheter in the left lower quadrant there is no surrounding erythema I did not note any blood tinged drainage. [] Skin: Warm, dry, no erythema, no rash. [] Back: No tenderness, no CVA tenderness. [] Extremities: No tenderness, no cyanosis, no clubbing, ROM intact, no edema. [] Neurologic: Alert and oriented X 3, normal motor function, normal sensory function, no focal deficits noted. [] Psychologic: Anxious[] Current Patient Data Vital Signs Vital Signs Date Time Temp Pulse Resp B/P (MAP) Pulse Ox O2 Delivery O2 Flow Rate FiO2 03/07/19 11:03 96.6 67 10 141/65 (90) 97 Room Air 96.6 Lab Values Laboratory Tests Test 03/07/19 11:45 White Blood Count 11.7 x10^3/uL (4.0-11.0) H Red Blood Count 2.71 x10^6/uL (4.30-5.70) L Hemoglobin 8.6 g/dL (13.0-17.5) L Hematocrit 26.0 % (39.0-53.0) L Mean Corpuscular Volume 96 fL (79-100) Mean Corpuscular Hemoglobin 32 pg (25-35) Mean Corpuscular Hemoglobin Concent 33 g/dL (31-37) Red Cell Distribution Width 16.0 % (11.5-14.5) H Platelet Count 320 x10^3/uL (140-400) Neutrophils (%) (Auto) 82 % (31-73) H Lymphocytes (%) (Auto) 6 % (24-48) L Monocytes (%) (Auto) 8 % (0-9) Eosinophils (%) (Auto) 3 % (0-3) Basophils (%) (Auto) 1 % (0-3) Neutrophils # (Auto) 9.6 x10^3uL (1.8-7.7) H Lymphocytes # (Auto) 0.6 x10^3/uL (1.0-4.8) L Monocytes # (Auto) 1.0 x10^3/uL (0.0-1.1) Eosinophils # (Auto) 0.3 x10^3/uL (0.0-0.7) Basophils # (Auto) 0.1 x10^3/uL (0.0-0.2) Sodium Level 132 mmol/L (136-145) L Potassium Level 5.3 mmol/L (3.5-5.1) H Chloride Level 87 mmol/L (98-107) L Carbon Dioxide Level 23 mmol/L (21-32) Anion Gap 22 (6-14) H Blood Urea Nitrogen 95 mg/dL (8-26) H Creatinine 16.3 mg/dL (0.7-1.3) H Estimated GFR (Cockcroft-Gault) 3.1 BUN/Creatinine Ratio 6 (6-20) Glucose Level 484 mg/dL (70-99) H Calcium Level 7.4 mg/dL (8.5-10.1) L Total Bilirubin 0.4 mg/dL (0.2-1.0) Aspartate Amino Transferase (AST) 12 U/L (15-37) L Alanine Aminotransferase (ALT) 12 U/L (16-63) L Alkaline Phosphatase 128 U/L (46-116) H Total Protein 7.0 g/dL (6.4-8.2) Albumin 2.5 g/dL (3.4-5.0) L Albumin/Globulin Ratio 0.6 (1.0-1.7) L Laboratory Tests 03/07/19 11:45 Laboratory Tests 03/07/19 11:45 EKG EKG [] Radiology/Procedures Radiology/Procedures [] Course & Med Decision Making Course & Med Decision Making Pertinent Labs and Imaging studies reviewed. (See chart for details) [ED course: Evaluation reveals a chronically ill-appearing 53-year-old male with a peritoneal dialysis catheter in place. His abdominal exam during his stay in the department was benign. We did send cultures and cell count down to the lab but they have not yet returned after 150 minutes in the department. Patient states he wants to go home. He was told that his blood sugar was 480 I ordered regular insulin however the patient refused stating he took his insulin prior to his arrival here. 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 Departure Departure Impression: Primary Impression: Hyperglycemia Additional Impressions: Renal failure Anemia Referrals: SHILPA MCBRIDE MD (PCP) Patient Instructions: Hyperglycemia Additional Instructions: Follow with your bridge maintenance worker this week for recheck. Return to the emergency department with any new or concerning symptoms. Please continue your peritoneal dialysis has a you have been doing previously Problem Qualifiers Additional Impressions: Renal failure Renal failure chronicity: unspecified chronicity Qualified Codes: N19 - Unspecified kidney failure Anemia Anemia type: due to chronic kidney disease Chronic kidney disease stage: on chronic dialysis Qualified Codes: N18.6 - End stage renal disease; D63.1 - Anemia in chronic kidney disease; Z99.2 - Dependence on renal dialysis HENOK LEE DO Mar 07, 2019 13:15
[2019-03-07 13:20] LABS: BF CLARITY HAZY; BF COLOR RED; BF SOURCE PERITONEAL
[2019-03-07 13:21] LABS: BF MON % 86 %; BF PMN % 14 %; BF RBC COUNT 2642 /cmm (Not Established); BF WBC COUNT 214 /cmm (Not Established)
== END 2019-03-07 13:35 | disposition home or self-care (01) ==
LOC: ER 10:31
DX: E11.22 Type 2 diabetes mellitus with diabetic chronic kidney disease (principal); I12.0 Hypertensive chronic kidney disease with stage 5 chronic kidney disease or end stage renal disease; N18.6 End stage renal disease; D63.1 Anemia in chronic kidney disease; E11.65 Type 2 diabetes mellitus with hyperglycemia; Z99.2 Dependence on renal dialysis; Z79.4 Long term (current) use of insulin; J44.9 Chronic obstructive pulmonary disease, unspecified; I25.2 Old myocardial infarction; Z86.73 Personal history of transient ischemic attack (TIA), and cerebral infarction without residual deficits; Z88.8 Allergy status to other drugs, medicaments and biological substances
CPT/HCPCS: 36415; 80053; 85025; 86850; 86900; 86901; 87071; 87075; 89050; 99284-25

== ENCOUNTER → 2019-06-01 | Day surgery (SDC) | payer MEDICARE ==
[~2019-06-01] MED LIST changes: +DEXTROSE 50% 25 GM / 50ML DISP.SYRIN. IV ONE; +IV NORMAL SALINE 1000ML BAG 1,000 ML IV ONE; +LIDOCAINE 2% PF 5 ML VIAL. ONE; +PROPOFOL 20 ML IV ONE
[2019-06-01 09:00] VITALS: BP 171/78
--- NOTE | 2019-06-05 11:07 | PATHOLOGY ---
[facility] Accession Number: [id number] . 01 Material submitted: . esophagus - DISTAL ESOPHAGUS BX'S. Modifiers: distal . 01 Clinical history: . Hematemesis . 02 Diagnosis: Esophagus, distal, biopsy: - Squamocolumnar junctional mucosa with associated ulcer and granulation tissue formation. - Negative for intestinal metaplasia and malignancy. (MAP:[facility] [place]; 06/04/2019) [facility] 06/05/2019 1036 Local . 02 Electronically signed: . Luis Gomez MD, Pathologist NPI- [id number] . 01 Gross description: . Received in formalin labeled "Lance Easton, distal esophagus BX's," are 4 segments of spears soft tissue measuring 1.5 x 1.1 x 0.2 cm in aggregate dimensions and ranging from 0.3 to 0.7 cm in maximum dimension. The specimen is submitted entirely in cassette A1. (TSD; 06/01/2019) TOB/TOB 06/01/2019 2137 Local . 02 Pathologist provided ICD-10: K22.10 . 02 CPT . 810156 Specimen Comment: A courtesy copy of this report has been sent to Specimen Comment: [phone], , . Specimen Comment: Report sent to ,DR FREGOSO / DR MCBRIDE Performed at: 01 [facility] [address], [place], [place] [id number] MD Darnell Carmichael MD Phone: [phone] Performed at: 02 [facility] [id number] [place] [id number] MD Leatha Tsang MD Phone: [phone]
== END ==
LOC: SURG 06:56
PROVIDERS: ATTEND Internal Medicine Gastroenterology
DX: K21.0 Gastro-esophageal reflux disease with esophagitis (principal); K22.10 Ulcer of esophagus without bleeding; I25.2 Old myocardial infarction; I25.10 Atherosclerotic heart disease of native coronary artery without angina pectoris; F41.9 Anxiety disorder, unspecified; F17.210 Nicotine dependence, cigarettes, uncomplicated; E11.22 Type 2 diabetes mellitus with diabetic chronic kidney disease; I13.2 Hypertensive heart and chronic kidney disease with heart failure and with stage 5 chronic kidney disease, or end stage renal disease; I50.9 Heart failure, unspecified; N18.6 End stage renal disease; J44.9 Chronic obstructive pulmonary disease, unspecified; E78.00 Pure hypercholesterolemia, unspecified; E11.42 Type 2 diabetes mellitus with diabetic polyneuropathy; Z99.2 Dependence on renal dialysis; Z79.899 Other long term (current) drug therapy; Z98.890 Other specified postprocedural states; Z79.84 Long term (current) use of oral hypoglycemic drugs
CPT/HCPCS: 43239; 82962; 88305; J2001; J2704; J7042

== ENCOUNTER 2019-08-01 16:33 | Emergency (ER) | payer MEDICARE ==
[~2019-08-01] VITALS: Ht 172.7 cm; Wt 68.9 kg
[~2019-08-01 16:33] MED LIST changes: -DEXTROSE 50% 25 GM / 50ML DISP.SYRIN. IV ONE; -IV NORMAL SALINE 1000ML BAG 1,000 ML IV ONE; -LIDOCAINE 2% PF 5 ML VIAL. ONE; -PROPOFOL 20 ML IV ONE
[2019-08-01] MEDS ORDERED: ONDANSETRON PF 4 MG/2 ML VIAL. IV ONE (18:30)
[2019-08-01] MEDS ORDERED: fentaNYL PF VIAL 100 MCG/2 ML VIAL IVP ONE ×3 (18:30→21:45)
--- NOTE | 2019-08-01 18:31 | PHYS DOC ---
Past Medical History Past Medical History: COPD, CVA, Diabetes-Type II, Hypertension, [place], Renal Failure, Other Additional Past Medical Histor: Peritoneal Dialysis Past Surgical History: Other Additional Past Surgical Histo: LEFT FA AV SHUNT, knees cleaned out, bilater foot reconstruction, Alcohol Use: None Drug Use: None Adult General Chief Complaint Chief Complaint: FEVER HPI HPI Patient is a 53-year-old male who presents with report of cold, painful left hand. Patient states that he has dialysis shunt in that left arm and he is concerned about possible blockage. Patient is on peritoneal dialysis and last dialysis was last night. Patient also indicates he has had a productive cough and some shortness of breath. He states that Dr. Riggs, his health education specialist, had instructed him to come into the emergency room to be worked up for possible admission. He does indicate that he has been running a fever. He rates the pain in his left hand as moderate. He denies any chest pain. He states that the shortness of breath is worsened with exertion.[] Review of Systems Review of Systems Constitutional: Complains of fever and chills [] Respiratory: Complains of cough and shortness of breath [] Cardiovascular: No additional information not addressed in HPI [] GI: Denies abdominal pain, nausea, vomiting or diarrhea [] Musculoskeletal: Complains of left hand pain [] Integument: Denies rash or skin lesions [] Neurologic: Denies headache, focal weakness. Complains of left hand numbness and tingling. [] All other systems were reviewed and found to be within normal limits, except as documented in this note. Current Medications Current Medications Current Medications Medications (Trade) Dose Ordered Sig/Rosalino Start Time Stop Time Status Last Admin Dose Admin Fentanyl Citrate (Fentanyl 2ml Vial) 50 mcg 1X ONCE 08/01/19 20:30 08/01/19 20:31 DC Ondansetron HCl (Zofran) 4 mg 1X ONCE 08/01/19 18:30 08/01/19 18:31 DC 08/01/19 19:20 4 MG Allergies Allergies Allergies Coded Allergies Type Severity Reaction Last Updated Verified lamotrigine Allergy Intermediate HIVES, SHORTNESS OF BREATH 06/01/19 Yes Physical Exam Physical Exam Constitutional: Well developed, well nourished, no acute distress, non-toxic appearance. [] HENT: Normocephalic, atraumatic, bilateral external ears normal, oropharynx moist, no oral exudates, nose normal. [] Eyes: PERRLA, EOMI, conjunctiva normal, no discharge. [] Neck: Normal range of motion, no tenderness, supple. [] Cardiovascular: Regular rate and rhythm[] Lungs & Thorax: Fine rhonchi are noted bilaterally, left greater than right to auscultation [] Abdomen: Bowel sounds normal, soft, no tenderness. [] Skin: Warm, dry, no erythema, no rash. [] Extremities: No cyanosis, no clubbing, ROM intact. [] Neurologic: Alert and oriented X 3, no focal deficits noted. [] Current Patient Data Vital Signs Vital Signs Date Time Temp Pulse Resp B/P (MAP) Pulse Ox O2 Delivery O2 Flow Rate FiO2 08/01/19 19:20 20 100 Room Air 08/01/19 18:30 99.3 93 153/72 (99) 99.3 Lab Values Laboratory Tests Test 08/01/19 19:03 08/01/19 19:24 White Blood Count 9.7 x10^3/uL (4.0-11.0) Red Blood Count 3.02 x10^6/uL (4.30-5.70) L Hemoglobin 9.4 g/dL (13.0-17.5) L Hematocrit 28.8 % (39.0-53.0) L Mean Corpuscular Volume 96 fL (79-100) Mean Corpuscular Hemoglobin 31 pg (25-35) Mean Corpuscular Hemoglobin Concent 33 g/dL (31-37) Red Cell Distribution Width 15.6 % (11.5-14.5) H Platelet Count 319 x10^3/uL (140-400) Neutrophils (%) (Auto) 79 % (31-73) H Lymphocytes (%) (Auto) 8 % (24-48) L Monocytes (%) (Auto) 10 % (0-9) H Eosinophils (%) (Auto) 3 % (0-3) Basophils (%) (Auto) 1 % (0-3) Neutrophils # (Auto) 7.7 x10^3/uL (1.8-7.7) Lymphocytes # (Auto) 0.7 x10^3/uL (1.0-4.8) L Monocytes # (Auto) 0.9 x10^3/uL (0.0-1.1) Eosinophils # (Auto) 0.2 x10^3/uL (0.0-0.7) Basophils # (Auto) 0.1 x10^3/uL (0.0-0.2) Sodium Level 139 mmol/L (136-145) Potassium Level 4.9 mmol/L (3.5-5.1) Chloride Level 97 mmol/L (98-107) L Carbon Dioxide Level 21 mmol/L (21-32) Anion Gap 21 (6-14) H Blood Urea Nitrogen 75 mg/dL (8-26) H Creatinine 8.8 mg/dL (0.7-1.3) H Estimated GFR (Cockcroft-Gault) 6.3 BUN/Creatinine Ratio 9 (6-20) Glucose Level 120 mg/dL (70-99) H Lactic Acid Level 0.6 mmol/L (0.4-2.0) Calcium Level 7.6 mg/dL (8.5-10.1) L Phosphorus Level 12.5 mg/dL (2.6-4.7) H Magnesium Level 1.7 mg/dL (1.8-2.4) L Total Bilirubin 0.4 mg/dL (0.2-1.0) Aspartate Amino Transferase (AST) 13 U/L (15-37) L Alanine Aminotransferase (ALT) 6 U/L (16-63) L Alkaline Phosphatase 97 U/L (46-116) Total Protein 5.6 g/dL (6.4-8.2) L Albumin 1.5 g/dL (3.4-5.0) L Albumin/Globulin Ratio 0.4 (1.0-1.7) L Influenza Type A Antigen Negative (NEGATIVE) Influenza Type B Antigen Negative (NEGATIVE) Laboratory Tests 08/01/19 19:03 Laboratory Tests 08/01/19 19:03 EKG EKG [] Radiology/Procedures Radiology/Procedures [] Impressions: PATIENT: DUANE IQBAL ACCOUNT: [id number] : 1965 LOCATION: ER AGE: 53 SEX: M EXAM STATUS: REG ER ORD. PHYSICIAN: LOREAN FIERRO Jr. DO REASON: cold painful hand; has AV fistula left arm PROCEDURE: UPPER EXT ARTERIAL LEFT Exam: Ultrasound upper extremity arterial left Indication: Cold painful hand Technique: Real-time grayscale and color Doppler images of the upper extremity arterial vasculature were obtained by the department proc tech. Spectral Doppler was obtained Comparisons: None FINDINGS: Peak systolic velocities as follows: Subclavian artery proximal: 253 cm/s Subclavian artery distal: 189 cm/s Axillary artery: 117 cm/s Brachial artery proximal: 496 cm/s Brachial artery distal: 381 cm/s Radial artery proximal: 70 cm/s Ulnar artery proximal: 63 cm/s Ulnar artery distal: 14 cm/s monophasic waveforms Radial artery distal: 28 cm/s monophasic waveforms Calcified plaque is noted diffusely throughout the upper extremity arterial vasculature. AV anastomosis in the upper arm is patent. IMPRESSION: 1. Calcified plaque noted throughout the upper extremity arterial vasculature with significant reduced velocities in the distal ulnar and radial artery which demonstrate monophasic waveforms signifying upstream stenosis. 2. AV fistula is patent. Electronically signed by: Jaxon Escobar MD (08/01/2019 8:56 PM) [facility] Course & Med Decision Making Course & Med Decision Making Pertinent Labs and Imaging studies reviewed. (See chart for details) Patient moved to room upon arrival was evaluated by your medical staff after which an IV was established and blood work was drawn. Arterial ultrasound was performed of left upper extremity and a CT of the abdomen and pelvis was also completed due to abnormal findings on chest x-ray. Ultimately, patient's case was discussed with Dr. Alba and he had indicated that patient would be appropriate for admission and consult vascular surgery. I did discuss admission with patient and patient states that he would rather follow-up with vascular surgery as an outpatient. Patient's left hand is warm and pink with good capillary refill; therefore, I do not feel that patient's case does represent an absolute emergency. We will plan on discharging patient home with above noted plan and have instructed patient to return to the emergency room if he has acute worsening of symptoms with the left hand. Dragon Disclaimer Dragon Disclaimer This electronic medical record was generated, in whole or in part, using a voice recognition dictation system. Departure Departure Impression: Primary Impression: Left hand pain Additional Impressions: Arterial stenosis ESRD (end stage renal disease) Disposition: 01 HOME, SELF-CARE Condition: STABLE Referrals: LUIS MANUEL MCBRIDE MD (PCP) Patient Instructions: End Stage Kidney Disease, Musculoskeletal Pain Scripts Hydrocodone/Apap 5-325 (NORCO 5-325 TABLET) 1 Each Tablet 1-2 EACH PO PRN Q6HRS PRN for PAIN, #10 as needed for pain Prov: LORENA FIERRO Jr. DO 08/01/19 Problem Qualifiers LORENA FIERRO Jr. DO Aug 01, 2019 18:31
[2019-08-01 19:15] LABS: BASO # 0.1 x10^3/uL (0.0-0.2); BASO % 1 % (0-3); EOS # 0.2 x10^3/uL (0.0-0.7); EOS % 3 % (0-3); HEMATOCRIT 28.8 % (39.0-53.0); HEMOGLOBIN 9.4 g/dL (13.0-17.5); LYMPH # 0.7 x10^3/uL (1.0-4.8); LYMPH % 8 % (24-48); MEAN CORPUSCULAR HEMOGLOBIN 31 pg (25-35); MEAN CORPUSCULAR HGB CONC 33 g/dL (31-37); MEAN CORPUSCULAR VOLUME 96 fL (79-100); MONO # 0.9 x10^3/uL (0.0-1.1); MONO % 10 % (0-9); NEUT # 7.7 x10^3/uL (1.8-7.7); NEUT % 79 % (31-73); PLATELET COUNT 319 x10^3/uL (140-400); RED BLOOD COUNT 3.02 x10^6/uL (4.30-5.70); RED CELL DISTRIBUTION WIDTH 15.6 % (11.5-14.5); WHITE BLOOD COUNT 9.7 x10^3/uL (4.0-11.0)
--- NOTE | 2019-08-01 19:23 | RAD ---
Exam: Chest 2 views INDICATION: Cough TECHNIQUE: Frontal and lateral views the chest Comparisons: 01/31/2019 FINDINGS: The cardiomediastinal silhouette and pulmonary vessels are within normal limits. Curvilinear lucency at the right hemidiaphragm. Remaining lungs are clear. No pleural effusion. IMPRESSION: Curvilinear lucency at the right hemidiaphragm. While this may be artifactual CT is recommended to exclude free air. FOR INTERNAL CODING PURPOSES Critical result: Findings discussed with LORENA FIERRO at 08/01/2019 7:18 PM. RESULT CODE: (C) Electronically signed by: Jaxon Escobar MD (08/01/2019 7:20 PM) [facility]
[2019-08-01 19:26] LABS: CALCIUM 7.6 mg/dL (8.5-10.1); CREATININE 8.8 mg/dL (0.7-1.3); GFR 6.3; POTASSIUM 4.9 mmol/L (3.5-5.1)
[2019-08-01 19:41] LABS: ALBUMIN 1.5 g/dL (3.4-5.0); ALBUMIN/GLOBULIN RATIO 0.4 (1.0-1.7); MAGNESIUM 1.7 mg/dL (1.8-2.4); TOTAL BILIRUBIN 0.4 mg/dL (0.2-1.0); TOTAL PROTEIN 5.6 g/dL (6.4-8.2)
[2019-08-01 19:49] LABS: INFLUENZA A PATIENT NEGATIVE (NEGATIVE); INFLUENZA B PATIENT NEGATIVE (NEGATIVE)
[2019-08-01 19:54] LABS: PHOSPHORUS 12.5 mg/dL (2.6-4.7)
--- NOTE | 2019-08-01 20:59 | RAD ---
Exam: Ultrasound upper extremity arterial left Indication: Cold painful hand Technique: Real-time grayscale and color Doppler images of the upper extremity arterial vasculature were obtained by the department field education coordinator. Spectral Doppler was obtained Comparisons: None FINDINGS: Peak systolic velocities as follows: Subclavian artery proximal: 253 cm/s Subclavian artery distal: 189 cm/s Axillary artery: 117 cm/s Brachial artery proximal: 496 cm/s Brachial artery distal: 381 cm/s Radial artery proximal: 70 cm/s Ulnar artery proximal: 63 cm/s Ulnar artery distal: 14 cm/s monophasic waveforms Radial artery distal: 28 cm/s monophasic waveforms Calcified plaque is noted diffusely throughout the upper extremity arterial vasculature. AV anastomosis in the upper arm is patent. IMPRESSION: 1. Calcified plaque noted throughout the upper extremity arterial vasculature with significant reduced velocities in the distal ulnar and radial artery which demonstrate monophasic waveforms signifying upstream stenosis. 2. AV fistula is patent. Electronically signed by: Jaxon Escobar MD (08/01/2019 8:56 PM) [facility]
--- NOTE | 2019-08-01 21:18 | RAD ---
Examination: CT abdomen and pelvis without contrast HISTORY: History of free air on x-ray. COMPARISON: None available. TECHNIQUE: Axial CT images of the abdomen pelvis are performed without contrast. Coronal and sagittal reformats are performed. Exposure: One or more of the following individualized dose reduction techniques were utilized for this examination: 1. Automated exposure control 2. Adjustment of the mA and/or kV according to patient size 3. Use of iterative reconstruction technique FINDINGS: Mild bibasilar lung airspace opacities likely atelectasis or infiltrates. Foci of free air identified in the anterior abdomen. The evaluation of the solid organs is limited due to lack of IV contrast. The evaluation of bowel is limited due to lack of oral contrast.. Mild hepatomegaly, splenomegaly identified. The gallbladder is mildly distended. The stomach is mildly distended. The visualized pancreas grossly appears unremarkable. Mild thickened appearance of the wall of the small bowel. Tubing identified in the pelvis probably a peritoneal dialysis catheter. Feces and gas noted in the colon Urinary bladder is mildly distended. Atrophic appearing bilateral kidneys. Severe aortic atherosclerosis. No evidence of lytic bony destructive lesion. IMPRESSION: 1. Free air identified in the abdomen, uncertain etiology could be due to peritoneal dialysis.. Correlate clinically. 2. Mild thickened appearance of the wall of the small bowel loops could be due to nondistention or enteritis. Electronically signed by: Bhupinder Rothman MD (08/01/2019 9:15 PM) [id number]
[2019-08-01] MEDS ORDERED: HYDR-3164 PO (21:37)
[2019-08-01 21:47] VITALS: BP 160/72
--- NOTE | 2019-08-02 07:03 | EKG ---
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
[2019-08-03] MEDS ORDERED: DIAZ10TA5 (01:55)
[2019-08-03] MEDS ORDERED: GLUC1VIA (01:55)
== END 2019-08-01 22:10 | disposition home or self-care (01) ==
LOC: ER 16:33
DX: E11.22 Type 2 diabetes mellitus with diabetic chronic kidney disease (principal); I12.0 Hypertensive chronic kidney disease with stage 5 chronic kidney disease or end stage renal disease; N18.6 End stage renal disease; M79.642 Pain in left hand; J44.9 Chronic obstructive pulmonary disease, unspecified; I25.2 Old myocardial infarction; Z86.73 Personal history of transient ischemic attack (TIA), and cerebral infarction without residual deficits; Z99.2 Dependence on renal dialysis; Z88.8 Allergy status to other drugs, medicaments and biological substances
CPT/HCPCS: 99285; J2405; J3010; 36415; 71046; 74176; 80053; 83605; 83735; 84100; 85025; 87040; 87804; 93005; 93931

== ENCOUNTER 2019-08-06 12:06 | Inpatient (IN) | payer MEDICARE ==
[~2019-08-06] VITALS: Ht 172.7 cm; Wt 70.1 kg
[~2019-08-06 12:06] MED LIST changes: +DIAZ10TA5; +GLUC1VIA
[2019-08-06] MEDS ORDERED: ACETAMINOPHEN/CODEINE 300/30MG TABLET. PO PRN (14:30)
[2019-08-06] MEDS ORDERED: CALCIUM CARBONATE 500 MG TAB.CHEW PO PRN (14:30)
[2019-08-06] MEDS ORDERED: TEMAZEPAM 7.5 MG CAPSULE PO PRN (14:30)
[2019-08-06] MEDS ORDERED: ACETAMINOPHEN 500 MG TABLET PO PRN (14:30)
[2019-08-06] MEDS ORDERED: DEXTROSE 50% 25 GM / 50ML DISP.SYRIN. IV PRN (14:30)
[2019-08-06] MEDS ORDERED: ONDANSETRON PF 4 MG/2 ML VIAL. IVP PRN (14:30)
[2019-08-06] MEDS ORDERED: MONTELUKAST SODIUM 10 MG TABLET. PO PRN (14:30)
[2019-08-06] MEDS ORDERED: DIAZEPAM 10 MG TABLET. PO PRN ×2 (14:30→15:30)
[2019-08-06] MEDS ORDERED: cloNIDine HCL 0.1 MG TABLET PO PRN ×2 (14:30)
[2019-08-06] MEDS ORDERED: ONDANSETRON ODT 4 MG TAB.RAPDIS. PO PRN (14:30)
[2019-08-06 15:05] LABS: BASO # 0.1 x10^3/uL (0.0-0.2); BASO % 1 % (0-3); EOS # 0.1 x10^3/uL (0.0-0.7); EOS % 1 % (0-3); HEMATOCRIT 31.2 % (39.0-53.0); HEMOGLOBIN 10.3 g/dL (13.0-17.5); LYMPH # 0.6 x10^3/uL (1.0-4.8); LYMPH % 4 % (24-48); MEAN CORPUSCULAR HEMOGLOBIN 31 pg (25-35); MEAN CORPUSCULAR HGB CONC 33 g/dL (31-37); MEAN CORPUSCULAR VOLUME 95 fL (79-100); MONO # 1.3 x10^3/uL (0.0-1.1); MONO % 9 % (0-9); NEUT # 11.9 x10^3/uL (1.8-7.7); NEUT % 85 % (31-73); PLATELET COUNT 481 x10^3/uL (140-400); RED CELL DISTRIBUTION WIDTH 16.2 % (11.5-14.5); WHITE BLOOD COUNT 14.1 x10^3/uL (4.0-11.0)
[2019-08-06 15:17] LABS: PROTHROMBIN TIME PATIENT 12.8 SEC (11.7-14.0)
--- NOTE | 2019-08-06 15:25 | PDOC1 ---
History and Physical Date of Admission Date of Admission DATE: 08/06/19 TIME: 15:18 Identification/Chief Complaint Chief Complaint clotted left AV fistula, readmission after 2 days (left AMA) Source Source: Caregiver, Chart review, Patient History of Present Illness History of Present Illness HE left AMA 2 days ago, bec as per " he gets bored". Old notes I have reviewed, he likes to eat what he can eat, He is PD and had peritonitis (ID was managing too), but PD fluid is now clear and is ff abx. HE has a clotted left AV fistula and this time he came back and wants to have it fixed. I read IR note and [facility] sx note and they had LUE angiogram/arteriogram planned for him, work up of the brachial vessel stenosis, steal syndrome tc (refer to DR Porter note and [facility] sx note 07/2019). HE is sleeping at ER, hard stick, at bedside verifies a full code, She encourages him to stay and have it fixed once and for all. Past Medical History Cardiovascular: CAD, HTN, Hyperlipidemia Pulmonary: COPD CENTRAL NERVOUS SYSTEM: CVA GI: Constipation Heme/Onc: Anemia NOS Musculoskeletal: Osteoarthritis Renal/: Chronic renal failure, Benign prostatic enlarg. Endocrine: Diabetes, Hyperparathyroidism Past Surgical History Past Surgical History: Total knee replacement, Other Family History Family History: Hypertension, Family History Unknown Social History Smoke: No ALCOHOL: none Drugs: None Current Medications Current Medications Current Medications Acetaminophen/ Codeine Phosphate (Tylenol #3) 1 tab PRN Q6HRS PRN PO PAIN; Start 08/06/19 at 14:30; Status UNV Acetaminophen (Tylenol) 500 mg PRN Q6HRS PRN PO MILD PAIN / TEMP; Start 08/06/19 at 14:30; Status UNV Clonidine HCl (Catapres) 0.1 mg PRN Q1HR PRN PO HYPERTENSION; Start 08/06/19 at 14:30; Status UNV Ondansetron HCl (Zofran) 4 mg PRN Q6HRS PRN IVP NAUSEA/VOMITING; Start 08/06/19 at 14:30; Status UNV Temazepam (Restoril) 7.5 mg PRN QHS PRN PO INSOMNIA; Start 08/06/19 at 14:30; Status UNV Calcium Carbonate/ Glycine (Tums) 500 mg PRN AFTMEALHC PRN PO INDIGESTION; Start 08/06/19 at 14:30; Status UNV Oxycodone/ Acetaminophen (Percocet 5/325) 1 tab PRN Q4HRS PRN PO PAIN; Start 08/06/19 at 14:30; Status UNV Amlodipine Besylate (Norvasc) 10 mg DAILY PO ; Start 08/07/19 at 09:00; Status UNV Atorvastatin Calcium (Lipitor) 40 mg HS PO ; Start 08/06/19 at 21:00; Status UNV Diazepam (Valium) 20 mg TID PRN PRN PO ANXIETY / AGITATION; Start 08/06/19 at 14:30; Status UNV Acetaminophen/ Hydrocodone Bitart (Lortab 5/325) 1 tab QID PRN PO pain; Start 08/06/19 at 14:30; Status UNV Montelukast Sodium (Singulair) 10 mg HS PRN PO ALLERGIES; Start 08/06/19 at 14:30; Status UNV Ondansetron HCl (Zofran Odt) 4 mg Q6HRS PRN PO NAUSEA; Start 08/06/19 at 14:30; Status UNV Tamsulosin HCl (Flomax) 0.4 mg HS PO ; Start 08/06/19 at 21:00; Status UNV Non-Formulary Medication (Carvedilol ) 25 mg BIDWMEALS PO ; Start 08/06/19 at 17:00; Status UNV Non-Formulary Medication (Gabapentin ) 300 mg TID PO ; Start 08/06/19 at 21:00; Status UNV Non-Formulary Medication (Hydralazine Hcl ) 1 tab TID PO ; Start 08/06/19 at 21:00; Status UNV Non-Formulary Medication (Insulin Glargine,Hum.rec.anlog (Lantus Solostar)) 11 unit QHS SQ ; Start 08/06/19 at 21:00; Status UNV Non-Formulary Medication (Insulin Lispro (Humalog)) 22 unit TIDWMEALS SQ ; Start 08/06/19 at 17:00; Status UNV Non-Formulary Medication (Losartan Potassium (Cozaar)) 100 mg HS PO ; Start 1 10/06/18 at 21:00; Status UNV Insulin Human Lispro (HumaLOG) 0-9 UNITS TIDWMEALS SQ ; Start 08/06/19 at 17:00; Status UNV Dextrose (Dextrose 50%-Water Syringe) 12.5 gm PRN Q15MIN PRN IV SEE COMMENTS; Start 08/06/19 at 14:30; Status UNV Clonidine HCl (Catapres) 0.1 mg PRN Q1HR PRN PO HYPERTENSION; Start 08/06/19 at 14:30; Status UNV Active Scripts Active Clemons 5-325 Tablet (Acetaminophen/Hydrocodone Bitart) 1 Each Tablet 1-2 Each PO PRN Q6HRS PRN as needed for pain Reported Diazepam 10 Mg Tablet 20 PRN PRN Glucagen (Glucagon,Human Recombinant) 1 Mg Vial 1 PRN PRN Clemons 5-325 Tablet (Acetaminophen/Hydrocodone Bitart) 1 Each Tablet 1 Tab PO PRN Q6HRS PRN Clemons 5-325 Tablet (Acetaminophen/Hydrocodone Bitart) 1 Each Tablet 1-2 Tab PO Q4-6HRS LAST DOSE GIVEN: 12/21/18 at 1500 so next dose at 7:00PM as needed for pain Tamsulosin Hcl 0.4 Mg Cap.er.24h 1 Cap PO HS Montelukast Sodium Tablet (Montelukast Sodium) 10 Mg Tablet 1 Tab PO HS PRN Ondansetron Odt (Ondansetron) 4 Mg Tab.rapdis 1 Tab PO PRN Q6-8HRS PRN Lantus Solostar (Insulin Glargine,Hum.rec.anlog) 100 Unit/1 Ml Insuln.pen 11 Unit SQ QHS Hydralazine Hcl 100 Mg Tablet 1 Tab PO TID Humalog (Insulin Lispro) 100 Unit/1 Ml Cartridge 22 Unit SQ TIDWMEALS Gabapentin 600 Mg Tablet 300 Mg PO TID Cozaar (Losartan Potassium) 100 Mg Tablet 100 Mg PO HS Carvedilol 25 Mg Tablet 25 Mg PO BIDWMEALS Atorvastatin Calcium 40 Mg Tablet 40 Mg PO HS Amlodipine Besylate 10 Mg Tablet 10 Mg PO DAILY Allergies Allergies: Coded Allergies: lamotrigine (Verified Allergy, Intermediate, HIVES, SHORTNESS OF BREATH, 06/01/19) ROS Review of System asleep i did not awaken, buta s per neg to all1 4 pt he STILL MAKES URINE Physical Exam General: No acute distress HEENT: Atraumatic, PERRLA, EOMI Lungs: Clear to auscultation, Normal air movement Heart: S1S2, RRR, no thrills, no rubs, no gallops, no murmurs Cardiovascular: S1, S2 Abdomen: Normal bowel sounds, Soft, No tenderness, No hepatosplenomegaly, No masses Male Genitals Exam: normal genitalia, normal prostate Rectal Exam: not examined PELVIC: Nml ext genitalia Extremities: Other (left av fistula with no good bruit palpable, diatl pulses in tact) Skin: No rashes, No breakdown, No significant lesion Vitals Vitals Vital Signs Date Time Temp Pulse Resp B/P (MAP) Pulse Ox O2 Delivery O2 Flow Rate FiO2 08/06/19 13:55 98.3 89 16 109/55 (73) 93 Room Air 98.3 Labs Labs Laboratory Tests Test 08/06/19 14:50 White Blood Count 14.1 x10^3/uL (4.0-11.0) Red Blood Count 3.30 x10^6/uL (4.30-5.70) Hemoglobin 10.3 g/dL (13.0-17.5) Hematocrit 31.2 % (39.0-53.0) Mean Corpuscular Volume 95 fL (79-100) Mean Corpuscular Hemoglobin 31 pg (25-35) Mean Corpuscular Hemoglobin Concent 33 g/dL (31-37) Red Cell Distribution Width 16.2 % (11.5-14.5) Platelet Count 481 x10^3/uL (140-400) Neutrophils (%) (Auto) 85 % (31-73) Lymphocytes (%) (Auto) 4 % (24-48) Monocytes (%) (Auto) 9 % (0-9) Eosinophils (%) (Auto) 1 % (0-3) Basophils (%) (Auto) 1 % (0-3) Neutrophils # (Auto) 11.9 x10^3/uL (1.8-7.7) Lymphocytes # (Auto) 0.6 x10^3/uL (1.0-4.8) Monocytes # (Auto) 1.3 x10^3/uL (0.0-1.1) Eosinophils # (Auto) 0.1 x10^3/uL (0.0-0.7) Basophils # (Auto) 0.1 x10^3/uL (0.0-0.2) Laboratory Tests Test 08/06/19 14:50 White Blood Count 14.1 x10^3/uL (4.0-11.0) Red Blood Count 3.30 x10^6/uL (4.30-5.70) Hemoglobin 10.3 g/dL (13.0-17.5) Hematocrit 31.2 % (39.0-53.0) Mean Corpuscular Volume 95 fL (79-100) Mean Corpuscular Hemoglobin 31 pg (25-35) Mean Corpuscular Hemoglobin Concent 33 g/dL (31-37) Red Cell Distribution Width 16.2 % (11.5-14.5) Platelet Count 481 x10^3/uL (140-400) Neutrophils (%) (Auto) 85 % (31-73) Lymphocytes (%) (Auto) 4 % (24-48) Monocytes (%) (Auto) 9 % (0-9) Eosinophils (%) (Auto) 1 % (0-3) Basophils (%) (Auto) 1 % (0-3) Neutrophils # (Auto) 11.9 x10^3/uL (1.8-7.7) Lymphocytes # (Auto) 0.6 x10^3/uL (1.0-4.8) Monocytes # (Auto) 1.3 x10^3/uL (0.0-1.1) Eosinophils # (Auto) 0.1 x10^3/uL (0.0-0.7) Basophils # (Auto) 0.1 x10^3/uL (0.0-0.2) VTE Prophylaxis Ordered VTE Prophylaxis Devices: Yes VTE Pharmacological Prophylaxi: Yes Assessment/Plan Assessment/Plan Clotted left AV fistula Brachial artery stenosis r/o hand ischemia AOCD ESRD on PD, daily Recent peritonitis, resolved SMOker PALn: IR and vasc sx consults MAy eat today - unlikely intervention today Renal Diet PD while in house Resume home meds- I did NPO post MN FUll code Seen at ER Evie patch - counselled < 30 mins 1:1 RICKIE GRAMAJO MD Aug 06, 2019 15:25
[2019-08-06 15:27] LABS: ALBUMIN 1.5 g/dL (3.4-5.0); ALBUMIN/GLOBULIN RATIO 0.3 (1.0-1.7); CALCIUM 8.1 mg/dL (8.5-10.1); CREATININE 8.8 mg/dL (0.7-1.3); GFR 6.3; POTASSIUM 3.7 mmol/L (3.5-5.1); TOTAL BILIRUBIN 0.2 mg/dL (0.2-1.0)
[2019-08-06] MEDS ORDERED: IV DEXTROSE 5% - 0.9 % NACL 500 ML IV ONE (15:30)
[2019-08-06] MEDS ORDERED: IV DEXTROSE 5% 250 ML IV ONE (15:30)
[2019-08-06] MEDS ORDERED: NICOTINE POLACRILEX 2MG GUM PACKAGE of 12. BC PRN (15:30)
[2019-08-06] MEDS ORDERED: DEXTROSE 50% 25 GM / 50ML DISP.SYRIN. IV ONE (15:51)
[2019-08-06] MEDS: INSULIN LISPRO 300 UNITS/3 ML VIAL. SQ SCH ×2 (17:00→19:00)
[2019-08-06 17:40] VITALS: BP 151/48
[2019-08-06] MEDS: CARVEDILOL 12.5 MG TABLET. PO SCH (18:07)
[2019-08-06] MEDS: NICOTINE 21MG PATCH. TD PRN (18:07)
[2019-08-06] MEDS ORDERED: ONDANSETRON PF 4 MG/2 ML VIAL. IV PRN (18:15)
[2019-08-06] MEDS ORDERED: MORPHINE SULFATE 4 MG/ML VIAL. IV PRN (18:15)
--- NOTE | 2019-08-06 18:18 | PHYS DOC ---
Past Medical History Past Medical History: COPD, CVA, Diabetes-Type I, Hypertension, PA, Renal Failure, Other Additional Past Medical Histor: Peritoneal Dialysis Past Surgical History: Other Additional Past Surgical Histo: LEFT FA AV SHUNT, bilateral foot reconstruction, Alcohol Use: Sober Drug Use: None Adult General Chief Complaint Chief Complaint: OTHER COMPLAINTS HPI HPI Patient is a 53 year old male with history of diabetes type 1, hypertension, COPD, CVA, end-stage kidney disease on peritoneal dialysis daily who presents to the ED today to be evaluated for clotted dialysis fistula. Patient was seen in the ED on last week, was offered admission and he walked out AMA, he was in the ED Tuesday and I admitted in, he reports he walked out AMA as an inpatient, he returns today stating he needs his dialysis fistula fixed. Review of Systems Review of Systems Constitutional: Denies fever or chills [] Eyes: Denies change in visual acuity, redness, or eye pain [] HENT: Denies nasal congestion or sore throat [] Respiratory: Denies cough or shortness of breath [] Cardiovascular: No additional information not addressed in HPI [] GI: Denies abdominal pain, nausea, vomiting, bloody stools or diarrhea [] : Denies dysuria or hematuria [] Musculoskeletal: Denies back pain or joint pain [] Integument: Reports clotted dialysis fistula Neurologic: Denies headache, focal weakness or sensory changes [] Endocrine: ESRD All other systems were reviewed and found to be within normal limits, except as documented in this note. Current Medications Current Medications Current Medications Medications (Trade) Dose Ordered Sig/[facility] Start Time Stop Time Status Last Admin Dose Admin Acetaminophen (Tylenol) 500 mg PRN Q6HRS PRN 08/06/19 14:30 Acetaminophen/ Codeine Phosphate (Tylenol #3) 1 tab PRN Q6HRS PRN 08/06/19 14:30 Acetaminophen/ Hydrocodone Bitart (Lortab 5/325) 1 tab QID PRN 08/06/19 14:30 Calcium Carbonate/ Glycine (Tums) 500 mg PRN AFTMEALHC PRN 08/06/19 14:30 Clonidine HCl (Catapres) 0.1 mg PRN Q1HR PRN 08/06/19 14:30 UNV Dextrose (Dextrose 50%-Water Syringe) 12.5 gm PRN Q15MIN PRN 08/06/19 14:30 Diazepam (Valium) 20 mg TID PRN PRN 08/06/19 14:30 08/06/19 15:27 DC Montelukast Sodium (Singulair) 10 mg HS PRN 08/06/19 14:30 Ondansetron HCl (Zofran Odt) 4 mg Q6HRS PRN 08/06/19 14:30 Ondansetron HCl (Zofran) 4 mg PRN Q6HRS PRN 08/06/19 14:30 Oxycodone/ Acetaminophen (Percocet 5/325) 1 tab PRN Q4HRS PRN 08/06/19 14:30 Temazepam (Restoril) 7.5 mg PRN QHS PRN 08/06/19 14:30 Allergies Allergies Allergies Coded Allergies Type Severity Reaction Last Updated Verified lamotrigine Allergy Intermediate HIVES, SHORTNESS OF BREATH 06/01/19 Yes Physical Exam Physical Exam Constitutional: Well developed, well nourished, no acute distress, non-toxic appearance. [] HENT: Normocephalic, atraumatic, bilateral external ears normal, oropharynx moist, no oral exudates, nose normal. [] Eyes: PERRLA, EOMI, conjunctiva normal, no discharge. [] Neck: Normal range of motion, no tenderness, supple, no stridor. [] Cardiovascular:Heart rate regular rhythm, no murmur [] Lungs & Thorax: Bilateral breath sounds clear to auscultation [] Abdomen: Bowel sounds normal, soft, no tenderness, no masses, no pulsatile m asses. [] Skin: Warm, dry, no erythema, no rash. Left upper arm with a dialysis fistula with barely palpable thrill and barely audible bruit. Abdomen with peritoneal dialysis equipment Back: No tenderness, no CVA tenderness. [] Extremities: No tenderness, no cyanosis, no clubbing, ROM intact, no edema. [] Neurologic: Alert and oriented X 3, normal motor function, normal sensory function, no focal deficits noted. [] Psychologic: Affect normal, judgement normal, mood normal. [] Current Patient Data Vital Signs Vital Signs Date Time Temp Pulse Resp B/P (MAP) Pulse Ox O2 Delivery O2 Flow Rate FiO2 08/06/19 14:25 87 14 114/70 (85) 96 Room Air 08/06/19 13:55 98.3 98.3 EKG EKG [] Radiology/Procedures Radiology/Procedures [] Course & Med Decision Making Course & Med Decision Making Pertinent Labs and Imaging studies reviewed. (See chart for details) This is a 53-year-old male patient with end-stage kidney disease on peritoneal dialysis presenting to the ED today requesting to be admitted again to have his left upper extremity fistula fixed. Patient is in the ED on and he signed out AMA he came back to the ED on Tuesday, he was admitted by me, he apparently left AMA. He is back today requesting his fistula to be fixed. CMP with glucose of 31, patient was given 1 amp of D50 and D5 started. Glucose went up to [address] Burton who accepted patient for admission Interventional radiology called stating the wall fixed patient's fistula tomorrow morning Dragon Disclaimer Dragon Disclaimer This electronic medical record was generated, in whole or in part, using a voice recognition dictation system. Departure Departure Impression: Primary Impression: ESRD (end stage renal disease) Additional Impressions: Dialysis AV fistula malfunction Hypoglycemia Disposition: ADMITTED INPATIENT Condition: STABLE Referrals: LUIS MANUEL MCBRIDE MD (PCP) Problem Qualifiers Additional Impressions: Dialysis AV fistula malfunction Encounter type: subsequent encounter Qualified Codes: T82.590D - Other mechanical complication of surgically created arteriovenous fistula, subsequent encounter ALBERT OCAMPO APRN Aug 06, 2019 18:18
[2019-08-06] MEDS ORDERED: CALC0.5C8 PO (18:31)
[2019-08-06] MEDS ORDERED: OMEP20TA8 PO (18:31)
[2019-08-06] MEDS ORDERED: FURO80TA3 PO (18:31)
[2019-08-06 19:00] VITALS: BP 168/64
[2019-08-06] MEDS: FUROSEMIDE 80 MG TABLET. PO SCH (19:51)
[2019-08-06] MEDS: TAMSULOSIN 0.4 MG CAP.ER.24H. PO SCH (20:22)
[2019-08-06] MEDS: ATORVASTATIN CALCIUM 40 MG TABLET. PO SCH (20:25)
[2019-08-06] MEDS: LOSARTAN POTASSIUM 50 MG TABLET. PO SCH (20:25)
[2019-08-06] MEDS ORDERED: DIAZEPAM10 MG PO (20:28)
[2019-08-06] MEDS: HYDROcodone/APAP 5/325MG 1 TAB TABLET PO PRN (20:29)
[2019-08-06] MEDS: INSULIN GLARGINE SYRINGE. SQ SCH (20:34)
[2019-08-06] MEDS ORDERED: NON FORMULARY ITEM (Gabapentin 300 MG) PO SCH (21:00)
[2019-08-06] MEDS: diazePAM 5 MG TABLET PO PRN (22:33)
[2019-08-06 23:00] VITALS: BP 147/48
[2019-08-07] VITALS (18 sets, daily range): BP systolic 24–182; BP diastolic 28–67
[2019-08-07] MEDS ORDERED: INSULIN LISPRO 300 UNITS/3 ML VIAL. SQ ONE ×2 (00:15→23:45)
[2019-08-07 06:55] LABS: BASO # 0.1 x10^3/uL (0.0-0.2); BASO % 1 % (0-3); EOS # 0.1 x10^3/uL (0.0-0.7); EOS % 0 % (0-3); HEMATOCRIT 28.7 % (39.0-53.0); HEMOGLOBIN 9.2 g/dL (13.0-17.5); LYMPH # 0.6 x10^3/uL (1.0-4.8); LYMPH % 4 % (24-48); MEAN CORPUSCULAR HEMOGLOBIN 31 pg (25-35); MEAN CORPUSCULAR HGB CONC 32 g/dL (31-37); MEAN CORPUSCULAR VOLUME 95 fL (79-100); MONO # 1.4 x10^3/uL (0.0-1.1); MONO % 10 % (0-9); NEUT # 11.4 x10^3/uL (1.8-7.7); NEUT % 85 % (31-73); PLATELET COUNT 405 x10^3/uL (140-400); RED BLOOD COUNT 3.01 x10^6/uL (4.30-5.70); RED CELL DISTRIBUTION WIDTH 16.1 % (11.5-14.5); WHITE BLOOD COUNT 13.5 x10^3/uL (4.0-11.0)
[2019-08-07 07:22] LABS: CALCIUM 7.6 mg/dL (8.5-10.1); CREATININE 8.6 mg/dL (0.7-1.3); GFR 6.5; POTASSIUM 3.6 mmol/L (3.5-5.1)
[2019-08-07] MEDS: PANTOPRAZOLE 40 MG TABLET.DR. PO SCH (07:30)
[2019-08-07] MEDS: INSULIN LISPRO 300 UNITS/3 ML VIAL. SQ SCH ×6 (07:42→16:09)
[2019-08-07] MEDS: CALCITRIOL 0.25 MCG CAPSULE. PO SCH (07:43)
[2019-08-07] MEDS: GABAPENTIN 300 MG CAPSULE. PO SCH (07:43)
[2019-08-07] MEDS ORDERED: DEXTROSE 50% 25 GM / 50ML DISP.SYRIN. IV PRN (07:45)
[2019-08-07] MEDS ORDERED: IV DEXTROSE 5% 250 ML BAG. IV PRN (07:45)
[2019-08-07] MEDS: FUROSEMIDE 80 MG TABLET. PO SCH ×2 (08:50→13:01)
--- NOTE | 2019-08-07 08:54 | PDOC2 ---
CONSULT Date of Consult Date of Consult DATE: 08/07/19 TIME: 08:42 Reason for Consult Reason for Consult: Left hand ischemia, arteriovenous fistula. Referring Physician Referring Physician: Dr. Burton Identification/Chief Complaint Chief Complaint Left hand pain. Source Source: Chart review, Patient History of Present Illness Reason for Visit: This is a 53-year-old gentleman with a past medical history of hypertension, thomas betes, and end-stage renal disease previously on hemodynamic cholecystitis who has transitioned to peritoneal dialysis. The patient was seen in the emergency room and admitted approximately 4 days ago, the patient left AGAINST MEDICAL ADVICE 2 days ago. He returns for continued evaluation of left hand pain. Patient has complaints of left arm swelling, pain and discoloration and fin gertips. He reports the pain to be intermittent and has been present for 2 weeks. He states that the discoloration has improved. He states he continues to have a"funny feelling in his left arm". He reports the sensation to be numbness and tingling. The patient is somewhat somnolent during examination and provides limited information and history.He denies any complaints of fever or chills. He denies complaints of nausea or vomiting. During his last hospitalization we recommended a left arm arteriogram and a left arm fistulogram. Discussed this plan with . The patient has been nothing by mouth and will likely have procedure performed today. Past Medical History Cardiovascular: CAD, HTN, Hyperlipidemia Pulmonary: COPD CENTRAL NERVOUS SYSTEM: CVA GI: Constipation Heme/Onc: Anemia NOS Musculoskeletal: Osteoarthritis Renal/: Chronic renal failure, Benign prostatic enlarg. Endocrine: Diabetes, Hyperparathyroidism Past Surgical History Past Surgical History: Total knee replacement, Other (left upper arm arteriovenous fistula, peritoneal dialysis catheter) Family History Family History: Hypertension, Family History Unknown Social History No ALCOHOL: none Drugs: None Lives: with Family Current Problem List Problem List Problems Medical Problems: (1) Dialysis AV fistula malfunction Status: Acute (2) ESRD (end stage renal disease) Status: Acute Current Medications Current Medications Current Medications Acetaminophen/ Codeine Phosphate (Tylenol #3) 1 tab PRN Q6HRS PRN PO MODERATE PAIN; Start 08/06/19 at 14:30 Acetaminophen (Tylenol) 500 mg PRN Q6HRS PRN PO MILD PAIN / TEMP Last administered on 08/07/19at 03:00; Start 08/06/19 at 14:30 Clonidine HCl (Catapres) 0.1 mg PRN Q1HR PRN PO HYPERTENSION; Start 08/06/19 at 14:30 Ondansetron HCl (Zofran) 4 mg PRN Q6HRS PRN IVP NAUSEA/VOMITING Last administered on 08/07/19at 03:00; Start 08/06/19 at 14:30 Temazepam (Restoril) 7.5 mg PRN QHS PRN PO INSOMNIA; Start 08/06/19 at 14:30 Calcium Carbonate/ Glycine (Tums) 500 mg PRN AFTMEALHC PRN PO INDIGESTION; Start 08/06/19 at 14:30 Oxycodone/ Acetaminophen (Percocet 5/325) 1 tab PRN Q4HRS PRN PO SEVERE PAIN, 2ND CHOICE; Start 08/06/19 at 14:30 Amlodipine Besylate (Norvasc) 10 mg DAILY PO ; Start 08/07/19 at 09:00 Atorvastatin Calcium (Lipitor) 40 mg HS PO Last administered on 08/06/19at 20:25; Start 08/06/19 at 21:00 Diazepam (Valium) 20 mg TID PRN PRN PO ANXIETY / AGITATION; Start 08/06/19 at 14:30; Stop 08/06/19 at 15:27; Status DC Acetaminophen/ Hydrocodone Bitart (Lortab 5/325) 1 tab QID PRN PO SEVERE PAIN, 1ST CHOICE Last administered on 08/06/19at 20:29; Start 08/06/19 at 14:30 Montelukast Sodium (Singulair) 10 mg HS PRN PO ALLERGIES; Start 08/06/19 at 14:30 Ondansetron HCl (Zofran Odt) 4 mg Q6HRS PRN PO NAUSEA; Start 08/06/19 at 14:30 Tamsulosin HCl (Flomax) 0.4 mg HS PO Last administered on 08/06/19at 20:22; Start 08/06/19 at 21:00 Carvedilol (Coreg) 25 mg BIDWMEALS PO Last administered on 08/06/19at 18:07; Start 08/06/19 at 17:00 Non-Formulary Medication (Gabapentin ) 300 mg TID PO ; Start 08/06/19 at 21:00; Stop 08/06/19 at 15:27; Status DC Hydralazine HCl (Apresoline) 100 mg TID PO Last administered on 08/06/19at 20:25; Start 08/06/19 at 21:00 Insulin Glargine (Lantus Syringe) 11 unit QHS SQ Last administered on 08/06/19at 20:34; Start 08/06/19 at 21:00 Insulin Human Lispro (HumaLOG) 22 units TIDWMEALS SQ ; Start 08/06/19 at 17:00 Losartan Potassium (Cozaar) 100 mg QHS PO Last administered on 08/06/19at 20:25; Start 08/06/19 at 21:00 Insulin Human Lispro (HumaLOG) 0-9 UNITS TIDWMEALS SQ ; Start 08/06/19 at 17:00 Dextrose (Dextrose 50%-Water Syringe) 12.5 gm PRN Q15MIN PRN IV SEE COMMENTS; Start 08/06/19 at 14:30 Clonidine HCl (Catapres) 0.1 mg PRN Q1HR PRN PO HYPERTENSION; Start 08/06/19 at 14:30; Status UNV Nicotine (Nicoderm Cq 21mg) 1 patch PRN DAILY PRN TD SMOKING CESSATION Last administered on 08/06/19at 18:07; Start 08/06/19 at 15:30 Nicotine Polacrilex (Nicorette Gum) 1 each PRN Q1HR PRN BC SMOKING CESSATION; Start 08/06/19 at 15:30 Diazepam (Valium) 10 mg TID PRN PRN PO ANXIETY / AGITATION; Start 08/06/19 at 15:30; Stop 08/06/19 at 22:25; Status DC Gabapentin (Neurontin) 300 mg DAILY PO ; Start 08/07/19 at 09:00 Dextrose 250 ml @ As Directed STK-MED ONCE IV ; Start 08/06/19 at 15:30; Stop 08/06/19 at 15:30; Status DC Dextrose/Sodium Chloride 500 ml @ 0 mls/hr 1X ONCE IV Last administered on 08/06/19at 15:30; Start 08/06/19 at 15:30; Stop 08/06/19 at 15:35; Status DC Dextrose (Dextrose 50%-Water Syringe) 25 gm STK-MED ONCE IV ; Start 08/06/19 at 15:51; Stop 08/06/19 at 16:50; Status DC Ondansetron HCl (Zofran) 4 mg PRN Q8HRS PRN IV NAUSEA/VOMITING; Start 08/06/19 at 18:15; Stop 08/07/19 at 18:14; Status UNV Morphine Sulfate (Morphine Sulfate) 4 mg PRN Q2HR PRN IV PAIN SEVERE; Start 08/06/19 at 18:15; Stop 08/07/19 at 18:14 Furosemide (Lasix) 80 mg BID94 PO Last administered on 08/06/19at 19:51; Start 08/06/19 at 19:00 Calcitriol (Rocaltrol) 0.5 mcg DAILY PO ; Start 08/07/19 at 09:00 Pantoprazole Sodium (Protonix) 40 mg DAILYAC PO ; Start 08/07/19 at 07:30 Diazepam (Valium) 10 mg TID PRN PRN PO ANXIETY / AGITATION Last administered on 08/06/19at 22:33; Start 08/06/19 at 22:25 Insulin Human Lispro (HumaLOG) 15 units 1X ONCE SQ Last administered on 08/07/19at 00:13; Start 08/07/19 at 00:15; Stop 08/07/19 at 00:16; Status DC Dextrose (Dextrose 50%-Water Syringe) 12.5 gm PRN Q15MIN PRN IV SEE COMMENTS; Start 08/07/19 at 07:45 Dextrose 250 ml PRN Q15MIN PRN IV SEE COMMENTS; Start 08/07/19 at 07:45 Active Scripts Active [place] 5-325 Tablet (Acetaminophen/Hydrocodone Bitart) 1 Each Tablet 1-2 Each PO PRN Q6HRS PRN as needed for pain Reported Diazepam 10 Mg Tablet 10 Mg PO HS Omeprazole 20 Mg Tablet.dr 20 Mg PO DAILY Calcitriol 0.5 Mcg Capsule 0.5 Mcg PO DAILY Furosemide 80 Mg Tablet 80 Mg PO BID Diazepam 10 Mg Tablet 20 PRN PRN Glucagen (Glucagon,Human Recombinant) 1 Mg Vial 1 PRN PRN [place] 5-325 Tablet (Acetaminophen/Hydrocodone Bitart) 1 Each Tablet 1 Tab PO PRN Q6HRS PRN [place] 5-325 Tablet (Acetaminophen/Hydrocodone Bitart) 1 Each Tablet 1-2 Tab PO Q4-6HRS LAST DOSE GIVEN: 12/21/18 at 1500 so next dose at 7:00PM as needed for pain Tamsulosin Hcl 0.4 Mg Cap.er.24h 1 Cap PO HS Montelukast Sodium Tablet (Montelukast Sodium) 10 Mg Tablet 1 Tab PO HS PRN Ondansetron Odt (Ondansetron) 4 Mg Tab.rapdis 1 Tab PO PRN Q6-8HRS PRN Lantus Solostar (Insulin Glargine,Hum.rec.anlog) 100 Unit/1 Ml Insuln.pen 11 Unit SQ QHS Hydralazine Hcl 100 Mg Tablet 1 Tab PO TID Humalog (Insulin Lispro) 100 Unit/1 Ml Cartridge 22 Unit SQ TIDWMEALS Gabapentin 600 Mg Tablet 300 Mg PO TID Cozaar (Losartan Potassium) 100 Mg Tablet 100 Mg PO HS Carvedilol 25 Mg Tablet 25 Mg PO BIDWMEALS Atorvastatin Calcium 40 Mg Tablet 40 Mg PO HS Amlodipine Besylate 10 Mg Tablet 10 Mg PO DAILY Allergies Allergies: Coded Allergies: lamotrigine (Verified Allergy, Intermediate, HIVES, SHORTNESS OF BREATH, 06/01/19) ROS Review of System Constitutional: Denies fever or chills Eyes: Denies any visual disturbances HENT: Denies nasal congestion or sore throat Respiratory: Denies cough or shortness of breath Cardiovascular: Denies any palpitations or chest pain GI: Denies abdominal pain, nausea, vomiting, bloody stools or diarrhea : Denies dysuria or hematuria Musculoskeletal: As per HPI Integument: As per HPI Neurologic: As per HPI Endocrine: Diabetes with hypoglycemia. Physical Exam Physical Exam Gen.: Alert and oriented 3. Cardiac: Heart rate regular. Normal carotid pulses. Lungs: CTA, nonlabored respirations. Abdomen: Soft, nontender, nondistended, no palpable masses. Extremities: Left arm arteriovenous fistula with good thrill and bruit. Unable to palpate radial R ulnar pulse. Skin: Left arm swelling, improved from 08/06/2019. Fifth finger pad with mild discoloration. Capillary refill greater than 3 seconds. Small dry eschar on left thumb. 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 Vitals VITALS Vital Signs Date Time Temp Pulse Resp B/P (MAP) Pulse Ox O2 Delivery O2 Flow Rate FiO2 08/07/19 07:00 98.0 79 19 182/57 (98) 90 Room Air 98.0 Labs Labs Laboratory Tests Test 08/06/19 14:50 08/06/19 15:49 08/06/19 16:06 08/06/19 17:47 White Blood Count 14.1 x10^3/uL (4.0-11.0) Red Blood Count 3.30 x10^6/uL (4.30-5.70) Hemoglobin 10.3 g/dL (13.0-17.5) Hematocrit 31.2 % (39.0-53.0) Mean Corpuscular Volume 95 fL (79-100) Mean Corpuscular Hemoglobin 31 pg (25-35) Mean Corpuscular Hemoglobin Concent 33 g/dL (31-37) Red Cell Distribution Width 16.2 % (11.5-14.5) Platelet Count 481 x10^3/uL (140-400) Neutrophils (%) (Auto) 85 % (31-73) Lymphocytes (%) (Auto) 4 % (24-48) Monocytes (%) (Auto) 9 % (0-9) Eosinophils (%) (Auto) 1 % (0-3) Basophils (%) (Auto) 1 % (0-3) Neutrophils # (Auto) 11.9 x10^3/uL (1.8-7.7) Lymphocytes # (Auto) 0.6 x10^3/uL (1.0-4.8) Monocytes # (Auto) 1.3 x10^3/uL (0.0-1.1) Eosinophils # (Auto) 0.1 x10^3/uL (0.0-0.7) Basophils # (Auto) 0.1 x10^3/uL (0.0-0.2) Prothrombin Time 12.8 SEC (11.7-14.0) Prothromb Time International Ratio 1.0 (0.8-1.1) Activated Partial Thromboplast Time 36 SEC (24-38) Sodium Level 134 mmol/L (136-145) Potassium Level 3.7 mmol/L (3.5-5.1) Chloride Level 94 mmol/L (98-107) Carbon Dioxide Level 24 mmol/L (21-32) Anion Gap 16 (6-14) Blood Urea Nitrogen 67 mg/dL (8-26) Creatinine 8.8 mg/dL (0.7-1.3) Estimated GFR (Cockcroft-Gault) 6.3 BUN/Creatinine Ratio 8 (6-20) Glucose Level 31 mg/dL (70-99) Calcium Level 8.1 mg/dL (8.5-10.1) Total Bilirubin 0.2 mg/dL (0.2-1.0) Aspartate Amino Transf (AST/SGOT) 63 U/L (15-37) Alanine Aminotransferase (ALT/SGPT) 10 U/L (16-63) Alkaline Phosphatase 102 U/L (46-116) Total Protein 6.0 g/dL (6.4-8.2) Albumin 1.5 g/dL (3.4-5.0) Albumin/Globulin Ratio 0.3 (1.0-1.7) Glucose (Fingerstick) 32 mg/dL (70-99) 120 mg/dL (70-99) 183 mg/dL (70-99) Test 08/06/19 20:29 08/06/19 23:43 08/07/19 05:25 08/07/19 07:33 Glucose (Fingerstick) 285 mg/dL (70-99) 357 mg/dL (70-99) 184 mg/dL (70-99) White Blood Count 13.5 x10^3/uL (4.0-11.0) Red Blood Count 3.01 x10^6/uL (4.30-5.70) Hemoglobin 9.2 g/dL (13.0-17.5) Hematocrit 28.7 % (39.0-53.0) Mean Corpuscular Volume 95 fL (79-100) Mean Corpuscular Hemoglobin 31 pg (25-35) Mean Corpuscular Hemoglobin Concent 32 g/dL (31-37) Red Cell Distribution Width 16.1 % (11.5-14.5) Platelet Count 405 x10^3/uL (140-400) Neutrophils (%) (Auto) 85 % (31-73) Lymphocytes (%) (Auto) 4 % (24-48) Monocytes (%) (Auto) 10 % (0-9) Eosinophils (%) (Auto) 0 % (0-3) Basophils (%) (Auto) 1 % (0-3) Neutrophils # (Auto) 11.4 x10^3/uL (1.8-7.7) Lymphocytes # (Auto) 0.6 x10^3/uL (1.0-4.8) Monocytes # (Auto) 1.4 x10^3/uL (0.0-1.1) Eosinophils # (Auto) 0.1 x10^3/uL (0.0-0.7) Basophils # (Auto) 0.1 x10^3/uL (0.0-0.2) Sodium Level 138 mmol/L (136-145) Potassium Level 3.6 mmol/L (3.5-5.1) Chloride Level 96 mmol/L (98-107) Carbon Dioxide Level 26 mmol/L (21-32) Anion Gap 16 (6-14) Blood Urea Nitrogen 62 mg/dL (8-26) Creatinine 8.6 mg/dL (0.7-1.3) Estimated GFR (Cockcroft-Gault) 6.5 Glucose Level 24 mg/dL (70-99) Calcium Level 7.6 mg/dL (8.5-10.1) Test 08/07/19 07:56 Glucose (Fingerstick) 87 mg/dL (70-99) Laboratory Tests Test 08/06/19 14:50 08/06/19 15:49 08/06/19 16:06 08/06/19 17:47 White Blood Count 14.1 x10^3/uL (4.0-11.0) Red Blood Count 3.30 x10^6/uL (4.30-5.70) Hemoglobin 10.3 g/dL (13.0-17.5) Hematocrit 31.2 % (39.0-53.0) Mean Corpuscular Volume 95 fL (79-100) Mean Corpuscular Hemoglobin 31 pg (25-35) Mean Corpuscular Hemoglobin Concent 33 g/dL (31-37) Red Cell Distribution Width 16.2 % (11.5-14.5) Platelet Count 481 x10^3/uL (140-400) Neutrophils (%) (Auto) 85 % (31-73) Lymphocytes (%) (Auto) 4 % (24-48) Monocytes (%) (Auto) 9 % (0-9) Eosinophils (%) (Auto) 1 % (0-3) Basophils (%) (Auto) 1 % (0-3) Neutrophils # (Auto) 11.9 x10^3/uL (1.8-7.7) Lymphocytes # (Auto) 0.6 x10^3/uL (1.0-4.8) Monocytes # (Auto) 1.3 x10^3/uL (0.0-1.1) Eosinophils # (Auto) 0.1 x10^3/uL (0.0-0.7) Basophils # (Auto) 0.1 x10^3/uL (0.0-0.2) Prothrombin Time 12.8 SEC (11.7-14.0) Prothromb Time International Ratio 1.0 (0.8-1.1) Activated Partial Thromboplast Time 36 SEC (24-38) Sodium Level 134 mmol/L (136-145) Potassium Level 3.7 mmol/L (3.5-5.1) Chloride Level 94 mmol/L (98-107) Carbon Dioxide Level 24 mmol/L (21-32) Anion Gap 16 (6-14) Blood Urea Nitrogen 67 mg/dL (8-26) Creatinine 8.8 mg/dL (0.7-1.3) Estimated GFR (Cockcroft-Gault) 6.3 BUN/Creatinine Ratio 8 (6-20) Glucose Level 31 mg/dL (70-99) Calcium Level 8.1 mg/dL (8.5-10.1) Total Bilirubin 0.2 mg/dL (0.2-1.0) Aspartate Amino Transf (AST/SGOT) 63 U/L (15-37) Alanine Aminotransferase (ALT/SGPT) 10 U/L (16-63) Alkaline Phosphatase 102 U/L (46-116) Total Protein 6.0 g/dL (6.4-8.2) Albumin 1.5 g/dL (3.4-5.0) Albumin/Globulin Ratio 0.3 (1.0-1.7) Glucose (Fingerstick) 32 mg/dL (70-99) 120 mg/dL (70-99) 183 mg/dL (70-99) Test 08/06/19 20:29 08/06/19 23:43 08/07/19 05:25 08/07/19 07:33 Glucose (Fingerstick) 285 mg/dL (70-99) 357 mg/dL (70-99) 184 mg/dL (70-99) White Blood Count 13.5 x10^3/uL (4.0-11.0) Red Blood Count 3.01 x10^6/uL (4.30-5.70) Hemoglobin 9.2 g/dL (13.0-17.5) Hematocrit 28.7 % (39.0-53.0) Mean Corpuscular Volume 95 fL (79-100) Mean Corpuscular Hemoglobin 31 pg (25-35) Mean Corpuscular Hemoglobin Concent 32 g/dL (31-37) Red Cell Distribution Width 16.1 % (11.5-14.5) Platelet Count 405 x10^3/uL (140-400) Neutrophils (%) (Auto) 85 % (31-73) Lymphocytes (%) (Auto) 4 % (24-48) Monocytes (%) (Auto) 10 % (0-9) Eosinophils (%) (Auto) 0 % (0-3) Basophils (%) (Auto) 1 % (0-3) Neutrophils # (Auto) 11.4 x10^3/uL (1.8-7.7) Lymphocytes # (Auto) 0.6 x10^3/uL (1.0-4.8) Monocytes # (Auto) 1.4 x10^3/uL (0.0-1.1) Eosinophils # (Auto) 0.1 x10^3/uL (0.0-0.7) Basophils # (Auto) 0.1 x10^3/uL (0.0-0.2) Sodium Level 138 mmol/L (136-145) Potassium Level 3.6 mmol/L (3.5-5.1) Chloride Level 96 mmol/L (98-107) Carbon Dioxide Level 26 mmol/L (21-32) Anion Gap 16 (6-14) Blood Urea Nitrogen 62 mg/dL (8-26) Creatinine 8.6 mg/dL (0.7-1.3) Estimated GFR (Cockcroft-Gault) 6.5 Glucose Level 24 mg/dL (70-99) Calcium Level 7.6 mg/dL (8.5-10.1) Test 08/07/19 07:56 Glucose (Fingerstick) 87 mg/dL (70-99) Assessment/Plan Assessment/Plan 53 year old male with end-stage renal disease on dialysis with left hand ischemia, symptoms somewhat improved since last admission. Patient has a patent arteriovenous fistula by physical examination. Discussed plan of care with Dr. White and Dr. Franco. Recommend arteriogram with runoff left arm with compr ession maneuvers to evaluate for steal in addition to visualize the circulation in the hand. In addition the patient might benefit from a fistulogram to evaluate any outflow obstruction causing arm swelling. Recommend continued protective measures. Place hand in a glove if patient continues to have discomfort. We will make additional recommendations pending the results of the arteriogram. We will continue to follow. Counseled patient regarding treatment plan. LUIS MCFARLAND APRN Aug 07, 2019 08:54
[2019-08-07] MEDS ORDERED: LIDOCAINE WITH 8.4% SOD BICARB 3 ML DISP.SYRIN. ONE (08:59)
[2019-08-07] MEDS ORDERED: IODIXANOL 320 MG/ML 100 ML VIAL. ONE ×2 (08:59→11:08)
[2019-08-07] MEDS ORDERED: fentaNYL PF VIAL 250 MCG/5 ML VIAL ONE (09:00)
[2019-08-07] MEDS ORDERED: HEPARIN for ARTERIAL LINE 1,500 ML ONE (09:00)
[2019-08-07] MEDS ORDERED: MIDAZOLAM HCL/PF 5 MG/5 ML VIAL. ONE (09:00)
[2019-08-07] MEDS ORDERED: HEPARIN for IV BOLUS 10,000 UNIT/10 ML VIAL. ONE (09:01)
[2019-08-07] MEDS: amLODIPine BESYLATE 10 MG TABLET PO SCH (09:11)
[2019-08-07] MEDS: CARVEDILOL 12.5 MG TABLET. PO SCH ×2 (09:11→16:08)
--- NOTE | 2019-08-07 09:38 | PDOC ---
[employer] PROGRESS NOTE Chief Complaint Chief Complaint Clotted left AV fistula Brachial artery stenosis r/o hand ischemia AOCD ESRD on PD, daily Recent peritonitis, resolved Smoker History of Present Illness History of Present Illness 08/07 Pt seen and examined Pt resting comfortably Discussed surgery later today Vitals/I&O Vitals/I&O: Vital Signs Date Time Temp Pulse Resp B/P (MAP) Pulse Ox O2 Delivery O2 Flow Rate FiO2 08/07/19 09:11 79 182/57 08/07/19 07:00 98.0 19 90 Room Air 98.0 I & O 08/06/19 08/06/19 08/07/19 15:00 23:00 07:00 Intake Total 240 ml Balance 240 ml Physical Exam General: Alert, Oriented X3, No acute distress Heart: Regular rate, Normal S1, Normal S2 Lungs: Clear Abdomen: Normal bowel sounds, Soft, No tenderness, No hepatosplenomegaly, No masses Extremities: No clubbing, No edema, Other (left av fistula with no good bruit palpable, diatl pulses in tact) Skin: No rashes, No breakdown, No significant lesion Labs Labs: Laboratory Tests Test 08/06/19 14:50 08/06/19 15:49 08/06/19 16:06 08/06/19 17:47 White Blood Count 14.1 x10^3/uL (4.0-11.0) Red Blood Count 3.30 x10^6/uL (4.30-5.70) Hemoglobin 10.3 g/dL (13.0-17.5) Hematocrit 31.2 % (39.0-53.0) Mean Corpuscular Volume 95 fL (79-100) Mean Corpuscular Hemoglobin 31 pg (25-35) Mean Corpuscular Hemoglobin Concent 33 g/dL (31-37) Red Cell Distribution Width 16.2 % (11.5-14.5) Platelet Count 481 x10^3/uL (140-400) Neutrophils (%) (Auto) 85 % (31-73) Lymphocytes (%) (Auto) 4 % (24-48) Monocytes (%) (Auto) 9 % (0-9) Eosinophils (%) (Auto) 1 % (0-3) Basophils (%) (Auto) 1 % (0-3) Neutrophils # (Auto) 11.9 x10^3/uL (1.8-7.7) Lymphocytes # (Auto) 0.6 x10^3/uL (1.0-4.8) Monocytes # (Auto) 1.3 x10^3/uL (0.0-1.1) Eosinophils # (Auto) 0.1 x10^3/uL (0.0-0.7) Basophils # (Auto) 0.1 x10^3/uL (0.0-0.2) Prothrombin Time 12.8 SEC (11.7-14.0) Prothromb Time International Ratio 1.0 (0.8-1.1) Activated Partial Thromboplast Time 36 SEC (24-38) Sodium Level 134 mmol/L (136-145) Potassium Level 3.7 mmol/L (3.5-5.1) Chloride Level 94 mmol/L (98-107) Carbon Dioxide Level 24 mmol/L (21-32) Anion Gap 16 (6-14) Blood Urea Nitrogen 67 mg/dL (8-26) Creatinine 8.8 mg/dL (0.7-1.3) Estimated GFR (Cockcroft-Gault) 6.3 BUN/Creatinine Ratio 8 (6-20) Glucose Level 31 mg/dL (70-99) Calcium Level 8.1 mg/dL (8.5-10.1) Total Bilirubin 0.2 mg/dL (0.2-1.0) Aspartate Amino Transf (AST/SGOT) 63 U/L (15-37) Alanine Aminotransferase (ALT/SGPT) 10 U/L (16-63) Alkaline Phosphatase 102 U/L (46-116) Total Protein 6.0 g/dL (6.4-8.2) Albumin 1.5 g/dL (3.4-5.0) Albumin/Globulin Ratio 0.3 (1.0-1.7) Glucose (Fingerstick) 32 mg/dL (70-99) 120 mg/dL (70-99) 183 mg/dL (70-99) Test 08/06/19 20:29 08/06/19 23:43 08/07/19 05:25 08/07/19 07:33 Glucose (Fingerstick) 285 mg/dL (70-99) 357 mg/dL (70-99) 184 mg/dL (70-99) White Blood Count 13.5 x10^3/uL (4.0-11.0) Red Blood Count 3.01 x10^6/uL (4.30-5.70) Hemoglobin 9.2 g/dL (13.0-17.5) Hematocrit 28.7 % (39.0-53.0) Mean Corpuscular Volume 95 fL (79-100) Mean Corpuscular Hemoglobin 31 pg (25-35) Mean Corpuscular Hemoglobin Concent 32 g/dL (31-37) Red Cell Distribution Width 16.1 % (11.5-14.5) Platelet Count 405 x10^3/uL (140-400) Neutrophils (%) (Auto) 85 % (31-73) Lymphocytes (%) (Auto) 4 % (24-48) Monocytes (%) (Auto) 10 % (0-9) Eosinophils (%) (Auto) 0 % (0-3) Basophils (%) (Auto) 1 % (0-3) Neutrophils # (Auto) 11.4 x10^3/uL (1.8-7.7) Lymphocytes # (Auto) 0.6 x10^3/uL (1.0-4.8) Monocytes # (Auto) 1.4 x10^3/uL (0.0-1.1) Eosinophils # (Auto) 0.1 x10^3/uL (0.0-0.7) Basophils # (Auto) 0.1 x10^3/uL (0.0-0.2) Sodium Level 138 mmol/L (136-145) Potassium Level 3.6 mmol/L (3.5-5.1) Chloride Level 96 mmol/L (98-107) Carbon Dioxide Level 26 mmol/L (21-32) Anion Gap 16 (6-14) Blood Urea Nitrogen 62 mg/dL (8-26) Creatinine 8.6 mg/dL (0.7-1.3) Estimated GFR (Cockcroft-Gault) 6.5 Glucose Level 24 mg/dL (70-99) Calcium Level 7.6 mg/dL (8.5-10.1) Test 08/07/19 07:56 Glucose (Fingerstick) 87 mg/dL (70-99) Review of Systems Review of Systems: No CP, SOB Assessment and Plan Assessmemt and Plan Problems Medical Problems: (1) Dialysis AV fistula malfunction Status: Acute (2) ESRD (end stage renal disease) Status: Acute Assessment 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 Medications: Current Medications Medications (Trade) Dose Ordered Sig/Rosalino Route PRN Reason Start Time Stop Time Status Last Admin Dose Admin Acetaminophen (Tylenol) 500 mg PRN Q6HRS PRN PO MILD PAIN / TEMP 08/06/19 14:30 08/07/19 03:00 Ondansetron HCl (Zofran) 4 mg PRN Q6HRS PRN IVP NAUSEA/VOMITING 08/06/19 14:30 08/07/19 03:00 Amlodipine Besylate (Norvasc) 10 mg DAILY PO 08/07/19 09:00 08/07/19 09:11 Atorvastatin Calcium (Lipitor) 40 mg HS PO 08/06/19 21:00 08/06/19 20:25 Acetaminophen/ Hydrocodone Bitart (Lortab 5/325) 1 tab QID PRN PO SEVERE PAIN, 1ST CHOICE 08/06/19 14:30 08/06/19 20:29 Tamsulosin HCl (Flomax) 0.4 mg HS PO 08/06/19 21:00 08/06/19 20:22 Carvedilol (Coreg) 25 mg BIDWMEALS PO 08/06/19 17:00 08/07/19 09:11 Hydralazine HCl (Apresoline) 100 mg TID PO 08/06/19 21:00 08/07/19 09:11 Insulin Glargine (Lantus Syringe) 11 unit QHS SQ 08/06/19 21:00 08/06/19 20:34 Losartan Potassium (Cozaar) 100 mg QHS PO 08/06/19 21:00 08/06/19 20:25 Nicotine (Nicoderm Cq 21mg) 1 patch PRN DAILY PRN TD SMOKING CESSATION 08/06/19 15:30 08/06/19 18:07 Dextrose/Sodium Chloride 500 ml @ 0 mls/hr 1X ONCE IV 08/06/19 15:30 08/06/19 15:35 DC 08/06/19 15:30 Furosemide (Lasix) 80 mg BID94 PO 08/06/19 19:00 08/06/19 19:51 Diazepam (Valium) 10 mg TID PRN PRN PO ANXIETY / AGITATION 08/06/19 22:25 08/06/19 22:33 Insulin Human Lispro (HumaLOG) 15 units 1X ONCE SQ 08/07/19 00:15 08/07/19 00:16 DC 08/07/19 00:13 KRISTEN [place] III DO Aug 07, 2019 09:38
[2019-08-07] MEDS ORDERED: DEXTROSE 50% 25 GM / 50ML DISP.SYRIN. IV ONE ×2 (09:53→10:00)
--- NOTE | 2019-08-07 10:26 | NUR ---
Patient arrived to IR for Arteriogram of right arm, patient lethargic and unable to answer all questions. Blood sugar checked 33, patient given Dextrose 25GM IVP per Dr. Franco. Blood sugar recheck 123. Patient awake, alert x3 and able to answer all questions appropriately. Vitals stable, will continue to monitor blood sugar.
[2019-08-07] MEDS ORDERED: IODIXANOL 320 MG/ML 100 ML VIAL. IART ONE (10:45)
[2019-08-07] MEDS ORDERED: fentaNYL PF VIAL 250 MCG/5 ML VIAL IV ONE (10:45)
[2019-08-07] MEDS ORDERED: CONTRAST GIVEN. MC PRN (10:45)
[2019-08-07] MEDS ORDERED: LIDOCAINE WITH 8.4% SOD BICARB 3 ML DISP.SYRIN. IJ ONE (10:45)
[2019-08-07] MEDS ORDERED: MIDAZOLAM HCL/PF 5 MG/5 ML VIAL. IV ONE (10:45)
[2019-08-07] MEDS ORDERED: NITROGLYCERIN 200 MCG/2 ML SYRINGE FOR CATH/VASC LAB. IART ONE (11:00)
[2019-08-07] MEDS ORDERED: HEPARIN for IV BOLUS 10,000 UNIT/10 ML VIAL. IV ONE (11:15)
--- NOTE | 2019-08-07 11:49 | PDOC2 ---
CONSULT Date of Consult Date of Consult DATE: 08/07/19 TIME: 11:47 Reason for Consult Reason for Consult: ESRD on PD Source Source: Chart review, Patient History of Present Illness Reason for Visit: Unable to Obtain detailed hx as pt somewhat groggy post sedation for IR procedure Per Chart - HE left AMA 2 days ago, bec as per " he gets bored He is PD and had peritonitis (ID was managing too), PD fluid is now clear and is off abx. He has a clotted left AV fistula and this time he came back and wants to have it fixed. LUE angiogram/arteriogram planned for him, work up of the brachial vessel stenosis, steal syndrome tc (refer to DR Porter note and [facility] sx note 07/2019). Past Medical History Cardiovascular: CAD, HTN, Hyperlipidemia Pulmonary: COPD CENTRAL NERVOUS SYSTEM: CVA GI: Constipation Heme/Onc: Anemia NOS Musculoskeletal: Osteoarthritis Renal/: Chronic renal failure, Benign prostatic enlarg. Endocrine: Diabetes, Hyperparathyroidism Past Surgical History Past Surgical History: Total knee replacement, Other (left upper arm arteriovenous fistula, peritoneal dialysis catheter) Family History Family History: Hypertension, Family History Unknown Social History No ALCOHOL: none Drugs: None Lives: with Family Current Problem List Problem List Problems Medical Problems: (1) Dialysis AV fistula malfunction Status: Acute (2) ESRD (end stage renal disease) Status: Acute Current Medications Current Medications Current Medications Acetaminophen/ Codeine Phosphate (Tylenol #3) 1 tab PRN Q6HRS PRN PO MODERATE PAIN; Start 08/06/19 at 14:30 Acetaminophen (Tylenol) 500 mg PRN Q6HRS PRN PO MILD PAIN / TEMP Last administered on 08/07/19at 03:00; Start 08/06/19 at 14:30 Clonidine HCl (Catapres) 0.1 mg PRN Q1HR PRN PO HYPERTENSION; Start 08/06/19 at 14:30 Ondansetron HCl (Zofran) 4 mg PRN Q6HRS PRN IVP NAUSEA/VOMITING Last administered on 08/07/19at 03:00; Start 08/06/19 at 14:30 Temazepam (Restoril) 7.5 mg PRN QHS PRN PO INSOMNIA; Start 08/06/19 at 14:30 Calcium Carbonate/ Glycine (Tums) 500 mg PRN AFTMEALHC PRN PO INDIGESTION; Start 08/06/19 at 14:30 Oxycodone/ Acetaminophen (Percocet 5/325) 1 tab PRN Q4HRS PRN PO SEVERE PAIN, 2ND CHOICE; Start 08/06/19 at 14:30 Amlodipine Besylate (Norvasc) 10 mg DAILY PO Last administered on 08/07/19 09:11; Start 08/07/19 at 09:00 Atorvastatin Calcium (Lipitor) 40 mg HS PO Last administered on 08/06/19 20:25; Start 08/06/19 at 21:00 Diazepam (Valium) 20 mg TID PRN PRN PO ANXIETY / AGITATION; Start 08/06/19 at 14:30; Stop 08/06/19 at 15:27; Status DC Acetaminophen/ Hydrocodone Bitart (Lortab 5/325) 1 tab QID PRN PO SEVERE PAIN, 1ST CHOICE Last administered on 08/06/19at 20:29; Start 08/06/19 at 14:30 Montelukast Sodium (Singulair) 10 mg HS PRN PO ALLERGIES; Start 08/06/19 at 14:30 Ondansetron HCl (Zofran Odt) 4 mg Q6HRS PRN PO NAUSEA; Start 08/06/19 at 14:30 Tamsulosin HCl (Flomax) 0.4 mg HS PO Last administered on 08/06/19 20:22; Start 08/06/19 at 21:00 Carvedilol (Coreg) 25 mg BIDWMEALS PO Last administered on 08/07/19 09:11; Start 08/06/19 at 17:00 Non-Formulary Medication (Gabapentin ) 300 mg TID PO ; Start 08/06/19 at 21:00; Stop 08/06/19 at 15:27; Status DC Hydralazine HCl (Apresoline) 100 mg TID PO Last administered on 08/07/19 09:11; Start 08/06/19 at 21:00 Insulin Glargine (Lantus Syringe) 11 unit QHS SQ Last administered on 08/06/19 20:34; Start 08/06/19 at 21:00 Insulin Human Lispro (HumaLOG) 22 units TIDWMEALS SQ ; Start 08/06/19 at 17:00 Losartan Potassium (Cozaar) 100 mg QHS PO Last administered on 08/06/19at 20:25; Start 08/06/19 at 21:00 Insulin Human Lispro (HumaLOG) 0-9 UNITS TIDWMEALS SQ ; Start 08/06/19 at 17:00 Dextrose (Dextrose 50%-Water Syringe) 12.5 gm PRN Q15MIN PRN IV SEE COMMENTS; Start 08/06/19 at 14:30 Clonidine HCl (Catapres) 0.1 mg PRN Q1HR PRN PO HYPERTENSION; Start 08/06/19 at 14:30; Status UNV Nicotine (Nicoderm Cq 21mg) 1 patch PRN DAILY PRN TD SMOKING CESSATION Last administered on 08/06/19at 18:07; Start 08/06/19 at 15:30 Nicotine Polacrilex (Nicorette Gum) 1 each PRN Q1HR PRN BC SMOKING CESSATION; Start 08/06/19 at 15:30 Diazepam (Valium) 10 mg TID PRN PRN PO ANXIETY / AGITATION; Start 08/06/19 at 15:30; Stop 08/06/19 at 22:25; Status DC Gabapentin (Neurontin) 300 mg DAILY PO ; Start 08/07/19 at 09:00 Dextrose 250 ml @ As Directed STK-MED ONCE IV ; Start 08/06/19 at 15:30; Stop 08/06/19 at 15:30; Status DC Dextrose/Sodium Chloride 500 ml @ 0 mls/hr 1X ONCE IV Last administered on 08/06/19at 15:30; Start 08/06/19 at 15:30; Stop 08/06/19 at 15:35; Status DC Dextrose (Dextrose 50%-Water Syringe) 25 gm STK-MED ONCE IV ; Start 08/06/19 at 15:51; Stop 08/06/19 at 16:50; Status DC Ondansetron HCl (Zofran) 4 mg PRN Q8HRS PRN IV NAUSEA/VOMITING; Start 08/06/19 at 18:15; Stop 08/07/19 at 18:14; Status UNV Morphine Sulfate (Morphine Sulfate) 4 mg PRN Q2HR PRN IV PAIN SEVERE; Start 08/06/19 at 18:15; Stop 08/07/19 at 18:14 Furosemide (Lasix) 80 mg BID94 PO Last administered on 08/06/19at 19:51; Start 08/06/19 at 19:00 Calcitriol (Rocaltrol) 0.5 mcg DAILY PO ; Start 08/07/19 at 09:00 Pantoprazole Sodium (Protonix) 40 mg DAILYAC PO ; Start 08/07/19 at 07:30 Diazepam (Valium) 10 mg TID PRN PRN PO ANXIETY / AGITATION Last administered on 08/06/19at 22:33; Start 08/06/19 at 22:25 Insulin Human Lispro (HumaLOG) 15 units 1X ONCE SQ Last administered on 08/07/19at 00:13; Start 08/07/19 at 00:15; Stop 08/07/19 at 00:16; Status DC Dextrose (Dextrose 50%-Water Syringe) 12.5 gm PRN Q15MIN PRN IV SEE COMMENTS; Start 08/07/19 at 07:45 Dextrose 250 ml PRN Q15MIN PRN IV SEE COMMENTS; Start 08/07/19 at 07:45 Iodixanol (Visipaque 320) 100 ml STK-MED ONCE .ROUTE ; Start 08/07/19 at 08:59; Stop 08/07/19 at 08:59; Status DC Lidocaine HCl (Buffered Lidocaine 1%) 3 ml STK-MED ONCE .ROUTE ; Start 08/07/19 at 08:59; Stop 08/07/19 at 09:00; Status DC Heparin Sodium/ Sodium Chloride 1,500 ml @ As Directed STK-MED ONCE .ROUTE ; Start 08/07/19 at 09:00; Stop 08/07/19 at 09:00; Status DC Midazolam HCl (Versed) 5 mg STK-MED ONCE .ROUTE ; Start 08/07/19 at 09:00; Stop 08/07/19 at 09:01; Status DC Fentanyl Citrate (Fentanyl 5ml Vial) 250 mcg STK-MED ONCE .ROUTE ; Start 08/07/19 at 09:00; Stop 08/07/19 at 09:01; Status DC Heparin Sodium (Porcine) (Heparin Sodium) 10,000 unit STK-MED ONCE .ROUTE ; Start 08/07/19 at 09:01; Stop 08/07/19 at 09:01; Status DC Dextrose (Dextrose 50%-Water Syringe) 25 gm STK-MED ONCE IV ; Start 08/07/19 at 09:53; Stop 08/07/19 at 09:53; Status DC Dextrose (Dextrose 50%-Water Syringe) 25 gm 1X ONCE IV Last administered on 08/07/19at 09:55; Start 08/07/19 at 10:00; Stop 08/07/19 at 10:01; Status DC Heparin Sodium/ Sodium Chloride (HEPARIN for ARTERIAL LINE FLUSH) 1,000 unit 1X ONCE IART Last administered on 08/07/19 10:45; Start 08/07/19 at 10:45; St op 08/07/19 at 10:46; Status DC Heparin Sodium/ Sodium Chloride (HEPARIN for ARTERIAL LINE FLUSH) 1,000 unit 1X ONCE IART Last administered on 08/07/19at 10:45; Start 08/07/19 at 10:45; Stop 08/07/19 at 10:46; Status DC Lidocaine HCl (Buffered Lidocaine 1%) 3 ml 1X ONCE IJ Last administered on 08/07/19at 10:45; Start 08/07/19 at 10:45; Stop 08/07/19 at 10:46; Status DC Midazolam HCl (Versed) 5 mg 1X ONCE IV Last administered on 08/07/19at 10:45; Start 08/07/19 at 10:45; Stop 08/07/19 at 10:46; Status DC Fentanyl Citrate (Fentanyl 5ml Vial) 250 mcg 1X ONCE IV Last administered on 08/07/19 10:45; Start 08/07/19 at 10:45; Stop 08/07/19 at 10:46; Status DC Iodixanol (Visipaque 320) 100 ml 1X ONCE IART Last administered on 08/07/19at 10:45; Start 08/07/19 at 10:45; Stop 08/07/19 at 10:46; Status DC Info (CONTRAST GIVEN -- Rx MONITORING) 1 each PRN DAILY PRN MC SEE COMMENTS; Start 08/07/19 at 10:45; Stop 08/09/19 at 10:44 Nitroglycerin (Nitroglycerin) 200 mcg 1X ONCE IART Last administered on 08/07/19at 11:00; Start 08/07/19 at 11:00; Stop 08/07/19 at 11:01; Status DC Iodixanol (Visipaque 320) 100 ml STK-MED ONCE .ROUTE ; Start 08/07/19 at 11:08; Stop 08/07/19 at 11:08; Status DC Heparin Sodium (Porcine) (Heparin Sodium) 4,000 unit 1X ONCE IV Last administered on 08/07/19at 11:15; Start 08/07/19 at 11:15; Stop 08/07/19 at 11:16; Status DC Active Scripts Active [place] 5-325 Tablet (Acetaminophen/Hydrocodone Bitart) 1 Each Tablet 1-2 Each PO PRN Q6HRS PRN as needed for pain Reported Diazepam 10 Mg Tablet 10 Mg PO HS Omeprazole 20 Mg Tablet.dr 20 Mg PO DAILY Calcitriol 0.5 Mcg Capsule 0.5 Mcg PO DAILY Furosemide 80 Mg Tablet 80 Mg PO BID Diazepam 10 Mg Tablet 20 PRN PRN Glucagen (Glucagon,Human Recombinant) 1 Mg Vial 1 PRN PRN [place] 5-325 Tablet (Acetaminophen/Hydrocodone Bitart) 1 Each Tablet 1 Tab PO PRN Q6HRS PRN [place] 5-325 Tablet (Acetaminophen/Hydrocodone Bitart) 1 Each Tablet 1-2 Tab PO Q4-6HRS LAST DOSE GIVEN: 12/21/18 at 1500 so next dose at 7:00PM as needed for pain Tamsulosin Hcl 0.4 Mg Cap.er.24h 1 Cap PO HS Montelukast Sodium Tablet (Montelukast Sodium) 10 Mg Tablet 1 Tab PO HS PRN Ondansetron Odt (Ondansetron) 4 Mg Tab.rapdis 1 Tab PO PRN Q6-8HRS PRN Lantus Solostar (Insulin Glargine,Hum.rec.anlog) 100 Unit/1 Ml Insuln.pen 11 Unit SQ QHS Hydralazine Hcl 100 Mg Tablet 1 Tab PO TID Humalog (Insulin Lispro) 100 Unit/1 Ml Cartridge 22 Unit SQ TIDWMEALS Gabapentin 600 Mg Tablet 300 Mg PO TID Cozaar (Losartan Potassium) 100 Mg Tablet 100 Mg PO HS Carvedilol 25 Mg Tablet 25 Mg PO BIDWMEALS Atorvastatin Calcium 40 Mg Tablet 40 Mg PO HS Amlodipine Besylate 10 Mg Tablet 10 Mg PO DAILY Allergies Allergies: Coded Allergies: lamotrigine (Verified Allergy, Intermediate, HIVES, SHORTNESS OF BREATH, 06/01/19) ROS Review of System Per HPI Physical Exam Physical Exam General: No acute distress, somewhat drowsy, recd sedation for IR procedure HEENT: OM moist Neck Supple Lungs: Clear to auscultation, Normal air movement Heart: S1S2, RRR, no thrills, no rubs, no gallops, no murmurs Cardiovascular: S1, S2 Abdomen: Normal bowel sounds, Soft, No tenderness, PD actheter in place, no e/ Exit site infection Extremities: left av fistula Skin: No rashes, No quinteros Vital Signs Vital Signs Date Time Temp Pulse Resp B/P (MAP) Pulse Ox O2 Delivery O2 Flow Rate FiO2 08/07/19 10:45 12 Nasal Cannula 2.0 08/07/19 09:11 79 182/57 08/07/19 07:00 98.0 90 98.0 Assessment & Plan ESRD- Dr Riggs's pt at [facility] per Home Prescription Peritonitis- was on Abx- left AMA PD fluid clear, Off Abx, Repeat Gram stain sent Asymptomatic Lt hand Ischemia- Vascular following S/P arteriogram earlier today [place]- VAN for Hgb < 10 Monitor DM- Non compliance with meds and diet Labs Labs Laboratory Tests Test 08/06/19 14:50 08/06/19 15:49 08/06/19 16:06 08/06/19 17:47 White Blood Count 14.1 x10^3/uL (4.0-11.0) Red Blood Count 3.30 x10^6/uL (4.30-5.70) Hemoglobin 10.3 g/dL (13.0-17.5) Hematocrit 31.2 % (39.0-53.0) Mean Corpuscular Volume 95 fL (79-100) Mean Corpuscular Hemoglobin 31 pg (25-35) Mean Corpuscular Hemoglobin Concent 33 g/dL (31-37) Red Cell Distribution Width 16.2 % (11.5-14.5) Platelet Count 481 x10^3/uL (140-400) Neutrophils (%) (Auto) 85 % (31-73) Lymphocytes (%) (Auto) 4 % (24-48) Monocytes (%) (Auto) 9 % (0-9) Eosinophils (%) (Auto) 1 % (0-3) Basophils (%) (Auto) 1 % (0-3) Neutrophils # (Auto) 11.9 x10^3/uL (1.8-7.7) Lymphocytes # (Auto) 0.6 x10^3/uL (1.0-4.8) Monocytes # (Auto) 1.3 x10^3/uL (0.0-1.1) Eosinophils # (Auto) 0.1 x10^3/uL (0.0-0.7) Basophils # (Auto) 0.1 x10^3/uL (0.0-0.2) Prothrombin Time 12.8 SEC (11.7-14.0) Prothromb Time International Ratio 1.0 (0.8-1.1) Activated Partial Thromboplast Time 36 SEC (24-38) Sodium Level 134 mmol/L (136-145) Potassium Level 3.7 mmol/L (3.5-5.1) Chloride Level 94 mmol/L (98-107) Carbon Dioxide Level 24 mmol/L (21-32) Anion Gap 16 (6-14) Blood Urea Nitrogen 67 mg/dL (8-26) Creatinine 8.8 mg/dL (0.7-1.3) Estimated GFR (Cockcroft-Gault) 6.3 BUN/Creatinine Ratio 8 (6-20) Glucose Level 31 mg/dL (70-99) Calcium Level 8.1 mg/dL (8.5-10.1) Total Bilirubin 0.2 mg/dL (0.2-1.0) Aspartate Amino Transf (AST/SGOT) 63 U/L (15-37) Alanine Aminotransferase (ALT/SGPT) 10 U/L (16-63) Alkaline Phosphatase 102 U/L (46-116) Total Protein 6.0 g/dL (6.4-8.2) Albumin 1.5 g/dL (3.4-5.0) Albumin/Globulin Ratio 0.3 (1.0-1.7) Glucose (Fingerstick) 32 mg/dL (70-99) 120 mg/dL (70-99) 183 mg/dL (70-99) Test 08/06/19 20:29 08/06/19 23:43 08/07/19 05:25 08/07/19 07:33 Glucose (Fingerstick) 285 mg/dL (70-99) 357 mg/dL (70-99) 184 mg/dL (70-99) White Blood Count 13.5 x10^3/uL (4.0-11.0) Red Blood Count 3.01 x10^6/uL (4.30-5.70) Hemoglobin 9.2 g/dL (13.0-17.5) Hematocrit 28.7 % (39.0-53.0) Mean Corpuscular Volume 95 fL (79-100) Mean Corpuscular Hemoglobin 31 pg (25-35) Mean Corpuscular Hemoglobin Concent 32 g/dL (31-37) Red Cell Distribution Width 16.1 % (11.5-14.5) Platelet Count 405 x10^3/uL (140-400) Neutrophils (%) (Auto) 85 % (31-73) Lymphocytes (%) (Auto) 4 % (24-48) Monocytes (%) (Auto) 10 % (0-9) Eosinophils (%) (Auto) 0 % (0-3) Basophils (%) (Auto) 1 % (0-3) Neutrophils # (Auto) 11.4 x10^3/uL (1.8-7.7) Lymphocytes # (Auto) 0.6 x10^3/uL (1.0-4.8) Monocytes # (Auto) 1.4 x10^3/uL (0.0-1.1) Eosinophils # (Auto) 0.1 x10^3/uL (0.0-0.7) Basophils # (Auto) 0.1 x10^3/uL (0.0-0.2) Sodium Level 138 mmol/L (136-145) Potassium Level 3.6 mmol/L (3.5-5.1) Chloride Level 96 mmol/L (98-107) Carbon Dioxide Level 26 mmol/L (21-32) Anion Gap 16 (6-14) Blood Urea Nitrogen 62 mg/dL (8-26) Creatinine 8.6 mg/dL (0.7-1.3) Estimated GFR (Cockcroft-Gault) 6.5 Glucose Level 24 mg/dL (70-99) Calcium Level 7.6 mg/dL (8.5-10.1) Test 08/07/19 07:56 08/07/19 09:52 08/07/19 10:05 08/07/19 11:09 Glucose (Fingerstick) 87 mg/dL (70-99) 33 mg/dL (70-99) 123 mg/dL (70-99) 111 mg/dL (70-99) Laboratory Tests Test 08/06/19 14:50 08/06/19 15:49 08/06/19 16:06 08/06/19 17:47 White Blood Count 14.1 x10^3/uL (4.0-11.0) Red Blood Count 3.30 x10^6/uL (4.30-5.70) Hemoglobin 10.3 g/dL (13.0-17.5) Hematocrit 31.2 % (39.0-53.0) Mean Corpuscular Volume 95 fL (79-100) Mean Corpuscular Hemoglobin 31 pg (25-35) Mean Corpuscular Hemoglobin Concent 33 g/dL (31-37) Red Cell Distribution Width 16.2 % (11.5-14.5) Platelet Count 481 x10^3/uL (140-400) Neutrophils (%) (Auto) 85 % (31-73) Lymphocytes (%) (Auto) 4 % (24-48) Monocytes (%) (Auto) 9 % (0-9) Eosinophils (%) (Auto) 1 % (0-3) Basophils (%) (Auto) 1 % (0-3) Neutrophils # (Auto) 11.9 x10^3/uL (1.8-7.7) Lymphocytes # (Auto) 0.6 x10^3/uL (1.0-4.8) Monocytes # (Auto) 1.3 x10^3/uL (0.0-1.1) Eosinophils # (Auto) 0.1 x10^3/uL (0.0-0.7) Basophils # (Auto) 0.1 x10^3/uL (0.0-0.2) Prothrombin Time 12.8 SEC (11.7-14.0) Prothromb Time International Ratio 1.0 (0.8-1.1) Activated Partial Thromboplast Time 36 SEC (24-38) Sodium Level 134 mmol/L (136-145) Potassium Level 3.7 mmol/L (3.5-5.1) Chloride Level 94 mmol/L (98-107) Carbon Dioxide Level 24 mmol/L (21-32) Anion Gap 16 (6-14) Blood Urea Nitrogen 67 mg/dL (8-26) Creatinine 8.8 mg/dL (0.7-1.3) Estimated GFR (Cockcroft-Gault) 6.3 BUN/Creatinine Ratio 8 (6-20) Glucose Level 31 mg/dL (70-99) Calcium Level 8.1 mg/dL (8.5-10.1) Total Bilirubin 0.2 mg/dL (0.2-1.0) Aspartate Amino Transf (AST/SGOT) 63 U/L (15-37) Alanine Aminotransferase (ALT/SGPT) 10 U/L (16-63) Alkaline Phosphatase 102 U/L (46-116) Total Protein 6.0 g/dL (6.4-8.2) Albumin 1.5 g/dL (3.4-5.0) Albumin/Globulin Ratio 0.3 (1.0-1.7) Glucose (Fingerstick) 32 mg/dL (70-99) 120 mg/dL (70-99) 183 mg/dL (70-99) Test 08/06/19 20:29 08/06/19 23:43 08/07/19 05:25 08/07/19 07:33 Glucose (Fingerstick) 285 mg/dL (70-99) 357 mg/dL (70-99) 184 mg/dL (70-99) White Blood Count 13.5 x10^3/uL (4.0-11.0) Red Blood Count 3.01 x10^6/uL (4.30-5.70) Hemoglobin 9.2 g/dL (13.0-17.5) Hematocrit 28.7 % (39.0-53.0) Mean Corpuscular Volume 95 fL (79-100) Mean Corpuscular Hemoglobin 31 pg (25-35) Mean Corpuscular Hemoglobin Concent 32 g/dL (31-37) Red Cell Distribution Width 16.1 % (11.5-14.5) Platelet Count 405 x10^3/uL (140-400) Neutrophils (%) (Auto) 85 % (31-73) Lymphocytes (%) (Auto) 4 % (24-48) Monocytes (%) (Auto) 10 % (0-9) Eosinophils (%) (Auto) 0 % (0-3) Basophils (%) (Auto) 1 % (0-3) Neutrophils # (Auto) 11.4 x10^3/uL (1.8-7.7) Lymphocytes # (Auto) 0.6 x10^3/uL (1.0-4.8) Monocytes # (Auto) 1.4 x10^3/uL (0.0-1.1) Eosinophils # (Auto) 0.1 x10^3/uL (0.0-0.7) Basophils # (Auto) 0.1 x10^3/uL (0.0-0.2) Sodium Level 138 mmol/L (136-145) Potassium Level 3.6 mmol/L (3.5-5.1) Chloride Level 96 mmol/L (98-107) Carbon Dioxide Level 26 mmol/L (21-32) Anion Gap 16 (6-14) Blood Urea Nitrogen 62 mg/dL (8-26) Creatinine 8.6 mg/dL (0.7-1.3) Estimated GFR (Cockcroft-Gault) 6.5 Glucose Level 24 mg/dL (70-99) Calcium Level 7.6 mg/dL (8.5-10.1) Test 08/07/19 07:56 08/07/19 09:52 08/07/19 10:05 08/07/19 11:09 Glucose (Fingerstick) 87 mg/dL (70-99) 33 mg/dL (70-99) 123 mg/dL (70-99) 111 mg/dL (70-99) Review All relevant outside records, renal labs, imaging studies, telemetry/EKG's were reviewed. IVAN APARICIO MD Aug 07, 2019 11:49
[2019-08-07] MEDS ORDERED: IV NORMAL SALINE 500ML BAG 500 ML IV ONE (12:30)
--- NOTE | 2019-08-07 14:10 | RAD ---
08/07/2019 1. Left upper extremity angiography 2. Left upper shotty fistulogram 3. Balloon angioplasty of brachial artery stenosis Discussion: The patient is a 53-year-old male with evidence of left proximal left hand ischemia. Left upper extremity brachiocephalic fistula is in place. Concern for steal phenomena. Significant diffuse atherosclerotic vascular disease is also present. The procedure was explained in its entirety to the patient or the patients designated sales representative health insurance by a member of the treatment team, including a discussion of the risks, benefits and commonly accepted alternatives to the procedure, as well as the expected consequences of no therapy whatsoever. Discussion of the risks included, but was not limited to, those that are most frequent and those that are rare but possibly severe or life-threatening, as well as the possibility of unforeseen complications. All elements of maximal sterile barrier technique including the use of a cap, mask, sterile gown, sterile gloves, large sterile sheet, appropriate hand hygiene, and 2% chlorhexidine for cutaneous antisepsis (or acceptable alternative antiseptic per current guidelines) were followed for this procedure. The right groin was prepped and draped using sterile barrier technique. Ultrasound demonstrates the right common femoral artery calcified but patent. The artery was accessed using micropuncture technique, under direct ultrasound guidance. Reference ultrasound images were saved the medical record. A 5 Sami vascular sheath was placed. A left subclavian artery was selected using a vertebral catheter. Angiography was performed. The left subclavian artery is patent. Visualized proximal vertebral arteries patent. Left subclavian and axillary arteries are patent. Catheter was then repositioned in the distal axillary artery. Left upper shotty angiography was performed demonstrating diffuse calcification and multifocal stenosis involving the mid brachial artery. Stenosis measures up to 40-50%. There is a left upper extremity brachiocephalic fistula. The proximal outflow vein is relatively small. Angiography of the left upper extremity was then performed both with and without compression of the left upper extremity fistula. The ulnar artery is occluded proximal to the wrist. The radial artery is also occluded proximal to the symphysis. There is weak and delayed filling of pulmonary arteries, and proximal digital arteries without significant filling of a robust palmar arch. Filling of distal arteries as well as significantly improved with compression of the fistula. Before compression of the fistula almost no filling of hand arteries was seen. The catheter was then repositioned distal to the brachiocephalic anastomosis, and the distal most brachial artery above the bifurcation of radial arteries. Angiograms repeated demonstrating similar findings. 200 mcg of nitroglycerin was administered after a short intubation. Angiography was repeated demonstrating no significant improvement in flow. This was primarily to evaluate the degree to which spasm could be effecting results. The catheter was then directed through the anastomosis into the fistula. Fistulograms were obtained. The outflow vein is widely patent. The left subclavian vein and left brachiocephalic vein are patent. SVC is patent. Angioplasty of the disease brachial artery was performed with a 5 mm balloon which somewhat improved morphology and flow through the lesion. Angiograms of the puncture site demonstrated a mid common femoral puncture site amenable to closure device use. A mixed device was deployed to achieve hemostasis. Sterile dressings were applied. Total fluoroscopy time: 15.5 min Dose area product: 8190 minutes Gycm2 The procedures performed under conscious sedation including continuous cardiopulmonary monitoring via dedicated sedation nurse. [id number] sedation time: Impression: 1. Moderate brachial artery stenosis treated with balloon angioplasty with improved morphology and flow. Residual stenosis within the brachial artery are not felt to likely be flow-limiting. 2. Severe atherosclerotic vascular disease including chronic appearing occlusion of the distal radial arteries, with poor filling of digital arteries. Findings likely represent chronic severe microvascular disease. An acute embolic phenomenon is not identified. 3. With compression of the significant improvement and perfusion angiographically and clinically with compression of the fistula. Notably at the end of the procedure the patient had fall asleep, with significant decrease in blood pressure. His hand appeared significantly more dusky than at the beginning of the procedure, only after his blood pressure dropped. The fistula was then compressed, which overtly improved perfusion to the hand 4. Stenosis of the proximal most outflow vein, including the brachial-cephalic anastomosis. Remainder of the left upper extremity fistula is patent. No outflow disease is identified. Proximal stenosis was not treated at this time, secondary to concern for worsening left hand ischemia.
--- NOTE | 2019-08-07 17:55 | NUR ---
Patient returned to floor from a left arm arteriogram, frequent vital signs started at 1230 VS 81/38 78 90% on 2L. MD Parth notified new orders received for 500 cc bolus.
[2019-08-07] MEDS ORDERED: IV NORMAL SALINE 1000ML BAG 1,000 ML IV ONE (18:00)
--- NOTE | 2019-08-07 18:17 | NUR ---
Patient request pain medication around 171 stated to patient that I had to check his blood pressure before I could give him IV pain medication. Upon checking patient was 65/28 75 97.8 and O2 at 92% on 2L. MD Juan Ramon notified, new orders received for NS bolus of 1L. Patient rechecked at 1800 85/32 76. MD Juan Ramon stated to call him once fluids infused. Will continue to monitor.
[2019-08-07] MEDS: LOSARTAN POTASSIUM 50 MG TABLET. PO SCH (21:00)
--- NOTE | 2019-08-07 21:08 | NUR ---
patient transferred down to room 106 at this time. report was given to Luis before transferred. This RN updated ICU nurse on patient's latest BP.
[2019-08-07] MEDS: ATORVASTATIN CALCIUM 40 MG TABLET. PO SCH (22:32)
[2019-08-07] MEDS: diazePAM 5 MG TABLET PO PRN (22:32)
[2019-08-07] MEDS: TAMSULOSIN 0.4 MG CAP.ER.24H. PO SCH (22:32)
[2019-08-07] MEDS: INSULIN GLARGINE SYRINGE. SQ SCH (22:54)
--- NOTE | 2019-08-07 23:37 | RAD ---
Indication: Hypotension. TECHNIQUE:Portable AP chest X-ray COMPARISON: 08/01/2019 FINDINGS: Heart is moderately enlarged in size. Lungs are clear. No pneumothorax or pleural effusion. Visualized bony thorax within normal limits. IMPRESSION: No acute pulmonary process. Electronically signed by: Froilan Rhoades DO (08/07/2019 11:34 PM) [id number]
[2019-08-08] VITALS (26 sets, daily range): BP systolic 71–143; BP diastolic 34–76
[2019-08-08] MEDS: IV NORMAL SALINE 1000ML BAG 1,000 ML IV SCH ×2 (01:54→15:07)
[2019-08-08] MEDS: CARVEDILOL 12.5 MG TABLET. PO SCH (08:00)
[2019-08-08] MEDS: INSULIN LISPRO 300 UNITS/3 ML VIAL. SQ SCH ×5 (08:00→17:00)
[2019-08-08] MEDS ORDERED: DEXTROSE ORAL GEL 15 GM TUBE. ONE (08:04)
[2019-08-08] MEDS: amLODIPine BESYLATE 10 MG TABLET PO SCH (08:17)
[2019-08-08] MEDS ORDERED: FUROSEMIDE 80 MG TABLET. PO SCH (08:30)
[2019-08-08] MEDS: FUROSEMIDE 40 MG TABLET. PO SCH ×2 (09:00→16:00)
[2019-08-08] MEDS: GABAPENTIN 300 MG CAPSULE. PO SCH (09:03)
[2019-08-08] MEDS: CALCITRIOL 0.25 MCG CAPSULE. PO SCH (09:03)
[2019-08-08] MEDS: PANTOPRAZOLE 40 MG TABLET.DR. PO SCH (09:05)
--- NOTE | 2019-08-08 09:42 | PDOC2 ---
CARDIAC CONSULT DATE OF CONSULT Date of Consult DATE: 08/08/19 TIME: 09:32 REASON FOR CONSULT Reason for Consult: Hypotension REFERRING PHYSICIAN Referring Physician: Dr. Delatorre SOURCE Source: Chart review, Patient HISTORY OF PRESENT ILLNESS HISTORY OF PRESENT ILLNESS This is a 53 yo male who presented secondary to tingling, numbness, and blueish discoloration of his left hand for the last week or so. Was seen here late last week for same complaints, but unfortunately left AMA. Patient underwent left upper extremity arteriogram with runoff. Noted with brachial artery stenosis; s /p balloon angioplasty by vascular surgery. Was hypotensive overnight and was transferred to ICU, which prompted this consult. Patient was given IV fluid bolus and started on Dopamine gtt. Patient denies any dizziness, diaphoresis, SOA, palpitations, or nausea/vomiting. Has had improvement in tingling/numbness and color of left upper extremity. PAST MEDICAL HISTORY Past Medical History Cardiovascular: CAD (no stents ), HTN, Hyperlipidemia Pulmonary: COPD CENTRAL NERVOUS SYSTEM: CVA Heme/Onc: Anemia NOS Musculoskeletal: Osteoarthritis Renal/: Chronic renal failure (ESRD- previously on HD but has been transitioned to PD), Benign prostatic enlarg. Endocrine: Diabetes (2), Hyperparathyroidism PAST SURGICAL HISTORY Past Surgical History Total knee replacement, Other (AV fistula, PD catheter placement) FAMILY HISTORY Family History: Cancer (lung and breast) SOCIAL HISTORY Social History Smoke: < 1 ppd ALCOHOL: none Drugs: None H/o drug use many years ago Lives: with Family CURRENT MEDICATIONS CURRENT MEDICATIONS Current Medications Medications (Trade) Dose Ordered Sig/Rosalino Route PRN Reason Start Time Stop Time Status Last Admin Dose Admin Dextrose (Dextrose 50%-Water Syringe) 25 gm 1X ONCE IV 08/07/19 10:00 08/07/19 10:01 DC 08/07/19 09:55 Heparin Sodium/ Sodium Chloride (HEPARIN for ARTERIAL LINE FLUSH) 1,000 unit 1X ONCE IART 08/07/19 10:45 08/07/19 10:46 DC 08/07/19 10:45 Heparin Sodium/ Sodium Chloride (HEPARIN for ARTERIAL LINE FLUSH) 1,000 unit 1X ONCE IART 08/07/19 10:45 08/07/19 10:46 DC 08/07/19 10:45 Lidocaine HCl (Buffered Lidocaine 1%) 3 ml 1X ONCE IJ 08/07/19 10:45 08/07/19 10:46 DC 08/07/19 10:45 Midazolam HCl (Versed) 5 mg 1X ONCE IV 08/07/19 10:45 08/07/19 10:46 DC 08/07/19 10:45 Fentanyl Citrate (Fentanyl 5ml Vial) 250 mcg 1X ONCE IV 08/07/19 10:45 08/07/19 10:46 DC 08/07/19 10:45 Iodixanol (Visipaque 320) 100 ml 1X ONCE IART 08/07/19 10:45 08/07/19 10:46 DC 08/07/19 10:45 Nitroglycerin (Nitroglycerin) 200 mcg 1X ONCE IART 08/07/19 11:00 08/07/19 11:01 DC 08/07/19 11:00 Heparin Sodium (Porcine) (Heparin Sodium) 4,000 unit 1X ONCE IV 08/07/19 11:15 08/07/19 11:16 DC 08/07/19 11:15 Sodium Chloride 500 ml @ 500 mls/hr 1X ONCE IV 08/07/19 12:30 08/07/19 17:55 DC 08/07/19 12:30 Sodium Chloride 1,000 ml @ 1,000 mls/hr 1X ONCE IV 08/07/19 18:00 08/07/19 18:59 DC 08/07/19 17:58 Insulin Human Lispro (HumaLOG) 15 units 1X ONCE SQ 08/07/19 23:45 08/07/19 23:50 DC 08/07/19 23:54 Sodium Chloride 1,000 ml @ 80 mls/hr [id number] IV 08/08/19 01:45 08/08/19 01:54 Dopamine HCl/ Dextrose 250 ml @ 5.39 mls/hr CONT PRN IV SEE I/O RECORD 08/08/19 01:45 08/08/19 01:55 ALLERGIES ALLERGIES: Coded Allergies: lamotrigine (Verified Allergy, Intermediate, HIVES, SHORTNESS OF BREATH, 06/01/19) ROS Review of System 14 point ROS conducted with pertinent positives noted above in HPI PHYSICAL EXAM PHYSICAL EXAM General: Oriented X3, Cooperative, No acute distress HEENT: Atraumatic, Mucous membr. moist/pink Lungs: Other (CTA, diminished bases) Heart: Regular rate (SR no ectopies), Normal S1, Normal S2, Other (2/6 systolic murmur to LLS border) Extremities: No edema, left hand fifth finger pad with blueish discoloration. Thumb with dry eschar on left had. Left upper arm AV fistula with + bruit and thrill. Skin: No breakdown, No significant lesion Neuro: Normal speech, Sensation intact Psych/Mental Status: Other (drowsy) MUSCULOSKELETAL: Osteoarthritic changes both hands VITALS/I&O VITALS/I&O: Vital Signs Date Time Temp Pulse Resp B/P (MAP) Pulse Ox O2 Delivery O2 Flow Rate FiO2 08/08/19 09:00 80 16 100/50 (67) 98 Room Air 08/08/19 08:00 98.0 98.0 08/07/19 20:00 2.0 I & O 08/07/19 08/07/19 08/08/19 15:00 23:00 07:00 Output Total 0 ml 0 ml Balance 0 ml 0 ml LABS Lab: Laboratory Tests Test 08/07/19 09:52 08/07/19 10:05 08/07/19 11:09 08/07/19 11:42 Glucose (Fingerstick) 33 mg/dL (70-99) *L 123 mg/dL (70-99) H 111 mg/dL (70-99) H 112 mg/dL (70-99) H Test 08/07/19 16:02 08/07/19 22:52 08/08/19 00:18 08/08/19 08:01 Glucose (Fingerstick) 172 mg/dL (70-99) H 363 mg/dL (70-99) H 400 mg/dL (70-99) H 38 mg/dL (70-99) *L Test 08/08/19 08:09 08/08/19 09:06 Glucose (Fingerstick) 38 mg/dL (70-99) *L 133 mg/dL (70-99) H ECHOCARDIOGRAM ECHOCARDIOGRAM <Conclusion> The left ventricular systolic function is normal and the ejection fraction is within normal range. The Ejection Fraction is 55%. There is normal LV segmental wall motion. Doppler and Color Flow revealed mild tricuspid regurgitation. There is moderate pulmonary hypertension.The PA pressure was estimated at 57 mmHg. There is a trace circumferential pericardial effusion. DATE: 10/13/18 1556 ASSESSMENT/PLAN ASSESSMENT/PLAN 1. Left had ischemia, steal syndrome 2. PAD, brachial artery stenosis; s/p balloon angioplasty by vascular surgery 3. Chronic diastolic CHF; clinically compensated 4. CAD; non-obstructive. stable. CP free. 5. H/o CVA 6. ESRD on PD 7. Hypertension; now with hypotension. On low-dose dopamine gtt 8. Hyperlidipemia 9. Diabetes, II; with episodes of hypoglycemia 10. COPD with continued tobaccoism; discussed/encouraged cessations. Recommendations Agree with fluids Titrate off Dopamine Secondary prevention statin, ASA Lipids panel Supportive care Consider outpatient ischemic evaluation LIZZ ARCHER APRN Aug 08, 2019 09:42
--- NOTE | 2019-08-08 09:44 | CARD ---
MR#: [id number] Date of Study: 08/08/2019 Ordering Physician: ILAN GARRISON, Referring Physician: Sarah POZO: Karoline Polo APPROVED REPORT EXAM: Two-dimensional and M-mode echocardiogram with Doppler and color Doppler. Other Information Quality : AverageHR: 78bpm INDICATION Hypotension 2D DIMENSIONS RVDd2.2 (2.9-3.5cm)Left Atrium(2D)4.6 (1.6-4.0cm) IVSd1.4 (0.7-1.1cm)Aortic Root(2D)2.5 (2.0-3.7cm) LVDd5.2 (3.9-5.9cm)LVOT Diameter1.9 (1.8-2.4cm) LVDs2.5 (2.5-4.0cm)FS (%) 79.2 % SV128.5 mlLVEF(%)98.0 (>50%) Aortic Valve AoV Peak Bo.149.3cm/sAoV VTI26.0cm AO Peak GR.8.9mmHgLVOT VTI 22.66cm AO Mean GR.6mmHg Mitral Valve MV E Uqrlhova346.1cm/sMV E Peak Gr.9mmHg MV DECEL [id number] A Xcprhdtn84.4cm/s MV E Mean Gr.4mmHgE/A Ratio1.2 TDI Lateral E' P. V6.44cm/sMedial E' P. V6.37cm/s E/Lateral E'17.4E/Medial E'17.6 Tricuspid Valve RAP [id number] Pulmonary Vein S1 Xmdrowjk15.3cm/sS2 Mczijvzs11.50cm/s D2 Oytndglh03.5cm/s LEFT VENTRICLE The left ventricle is normal size. There is borderline to mild concentric left ventricular hypertroph y. The left ventricular systolic function is normal and the ejection fraction is within normal range. The Ejection Fraction is 50-55%. Septal motion suggestive of conduction defect. There is normal LV s egmental wall motion. Transmitral Doppler flow pattern is Grade II-pseudonormal filling dynamics. RIGHT VENTRICLE The right ventricle is normal size. There is normal right ventricular wall thickness. The right ventr icular systolic function is normal. ATRIA The left atrium size is normal. The right atrium size is normal. The interatrial septum is intact wit h no evidence for an atrial septal defect or patent foramen ovale as noted on 2-D or Doppler imaging. AORTIC VALVE The aortic valve is thickened but opens well. Doppler and Color Flow revealed no significant aortic r egurgitation. There is no significant aortic valvular stenosis. MITRAL VALVE The mitral valve is thickened but opens well. There is no evidence of mitral valve prolapse. There is no mitral valve stenosis. Doppler and Color-flow revealed trace mitral regurgitation. TRICUSPID VALVE The tricuspid valve is normal in structure and function. Doppler and Color Flow revealed trace tricus pid regurgitation. There is no tricuspid valve stenosis. PULMONIC VALVE The pulmonic valve is not well visualized. Doppler and Color Flow revealed no pulmonic valvular regur gitation. There is no pulmonic valvular stenosis. GREAT VESSELS The aortic root is normal in size. The ascending aorta is normal in size. The IVC is normal in size a nd collapses >50% with inspiration. PERICARDIAL EFFUSION There is no pleural effusion. There is a trace pericardial effusion. Critical Notification Critical Value: No <Conclusion> The left ventricular systolic function is normal and the ejection fraction is within normal range. Th e Ejection Fraction is 50-55%. Septal motion suggestive of conduction defect. There is normal LV segmental wall motion. Signed by : Syed Randle, Electronically Approved : 08/08/2019 09:43:24
--- NOTE | 2019-08-08 10:04 | PDOC ---
PROGRESS NOTES Subjective Subjective Patient seen and examined in ICU Patient transferred to ICU with hypotension and hypoglycemia. Patient reports mild pain in left hand. Objective Objective Vital Signs Date Time Temp Pulse Resp B/P (MAP) Pulse Ox O2 Delivery O2 Flow Rate FiO2 08/08/19 09:00 80 16 100/50 (67) 98 Room Air 08/08/19 08:00 98.0 98.0 08/07/19 20:00 2.0 Intake and Output 08/08/19 07:00 Output Total 0 ml Balance 0 ml Output Urine Total 0 ml Physical Exam Physical Exam Awake alert, answering questions appropriately and is awake during the entire examination. Heart rate regular Unable to appreciate radial or ulnar pulses bilaterally. Left upper arm arteriovenous fistula with bruit and thrill. Left fifth finger pad discoloration, thumb with dry eschar. Hand is warm. Motor function weak str ength 3/5. Sensation intact. Assessment Assessment Problems Medical Problems: (1) Dialysis AV fistula malfunction Status: Acute (2) ESRD (end stage renal disease) Status: Acute Plan Plan of Care 53-year-old male with severe atherosclerotic disease of the left upper extremity with hand ischemia and steal syndrome. Angioplasty performed of the brachial artery. Patient has had some improvement in the pain and discoloration of digits. -Recommend follow up in one week with arterial ultrasound with compression maneuvers to see if there is improvement following angioplasty. Discussed plan of care with Dr. White. Discussed plan of care with Dr. Javed, if patient can continue to be successful with peritoneal dialysis then potentially could ligate the arteriovenous fistula if it continues to cause hand ischemia. If the patient needs to continue hemodialysis he may benefit from a DRIL procedure. -Recommend patient wear a glove or mitten at all times. -Continue statin and antiplatelet therapy. -Discussed tobacco use with patient, he understands that he needs to quit, he is not sure he is willing to at this time, reinforced the impact this has on his peripheral vascular disease. Comment Review of Relevant I have reviewed the following items alex (where applicable) has been applied. Labs Laboratory Tests Laboratory Tests Test 08/07/19 09:52 08/07/19 10:05 08/07/19 11:09 08/07/19 11:42 Glucose (Fingerstick) 33 mg/dL (70-99) 123 mg/dL (70-99) 111 mg/dL (70-99) 112 mg/dL (70-99) Test 08/07/19 16:02 08/07/19 22:52 08/08/19 00:18 08/08/19 08:01 Glucose (Fingerstick) 172 mg/dL (70-99) 363 mg/dL (70-99) 400 mg/dL (70-99) 38 mg/dL (70-99) Test 08/08/19 08:09 08/08/19 09:06 Glucose (Fingerstick) 38 mg/dL (70-99) 133 mg/dL (70-99) Medications Images Arteriogram Impression: 1. Moderate brachial artery stenosis treated with balloon angioplasty with improved morphology and flow. Residual stenosis within the brachial artery are not felt to likely be flow-limiting. 2. Severe atherosclerotic vascular disease including chronic appearing occlusion of the distal radial arteries, with poor filling of digital arteries. Findings likely represent chronic severe microvascular disease. An acute embolic phenomenon is not identified. 3. With compression of the significant improvement and perfusion angiographically and clinically with compression of the fistula. Notably at the end of the procedure the patient had fall asleep, with significant decrease in blood pressure. His hand appeared significantly more dusky than at the beginning of the procedure, only after his blood pressure dropped. The fistula was then compressed, which overtly improved perfusion to the hand 4. Stenosis of the proximal most outflow vein, including the brachial-cephalic anastomosis. Remainder of the left upper extremity fistula is patent. No outflow disease is identified. Proximal stenosis was not treated at this time, secondary to concern for worsening left hand ischemia. LUIS MCFARLAND APRN Aug 08, 2019 10:04
[2019-08-08 10:06] LABS: HEMATOCRIT 34.3 % (39.0-53.0); HEMOGLOBIN 10.8 g/dL (13.0-17.5); RED BLOOD COUNT 3.53 x10^6/uL (4.30-5.70); RED CELL DISTRIBUTION WIDTH 16.4 % (11.5-14.5); WHITE BLOOD COUNT 15.1 x10^3/uL (4.0-11.0)
[2019-08-08 10:29] LABS: ALBUMIN 1.3 g/dL (3.4-5.0); ALBUMIN/GLOBULIN RATIO 0.3 (1.0-1.7); CALCIUM 7.7 mg/dL (8.5-10.1); CREATININE 9.6 mg/dL (0.7-1.3); GFR 5.7; POTASSIUM 4.2 mmol/L (3.5-5.1); TOTAL BILIRUBIN 0.3 mg/dL (0.2-1.0)
--- NOTE | 2019-08-08 11:33 | PDOC ---
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 AbN left UE arterigram AOCD ESRD on PD, daily Recent peritonitis, resolved SMOker HYPOTENSION - dopamine gtt History of Present Illness History of Present Illness transferred to ICU bec of hypotension 08/07 NO complaints Wants to go home as usual, hx of leaving AMA Off dopamine but SYTOLIC 90s, HIS USUAL is 150s PLAN: Keep ICU IVF NS 100cc PD per [facility] while in house Await plans from vasc sx or IR re that ABN LEFT ARM ATERIOGRAM - he does had dec sensation/pulse on that LUE dw PEDIATRIC PSYCHIATRIST Vitals Vitals Vital Signs Date Time Temp Pulse Resp B/P (MAP) Pulse Ox O2 Delivery O2 Flow Rate FiO2 08/08/19 11:00 78 16 99/48 (65) 98 Room Air 08/08/19 08:00 98.0 98.0 08/07/19 20:00 2.0 Physical Exam General: Alert, Oriented X3, No acute distress Heart: Regular rate, Normal S1, Normal S2 Lungs: Clear Abdomen: Normal bowel sounds, Soft, No tenderness, No hepatosplenomegaly, No masses Extremities: No clubbing, No edema, Other (left av fistula with no good bruit palpable, diatl pulses in tact) Skin: No rashes, No breakdown, No significant lesion Labs LABS Laboratory Tests Test 08/07/19 11:42 08/07/19 16:02 08/07/19 22:52 08/08/19 00:18 Glucose (Fingerstick) 112 mg/dL (70-99) 172 mg/dL (70-99) 363 mg/dL (70-99) 400 mg/dL (70-99) Test 08/08/19 08:01 08/08/19 08:09 08/08/19 09:00 08/08/19 09:06 Glucose (Fingerstick) 38 mg/dL (70-99) 38 mg/dL (70-99) 133 mg/dL (70-99) White Blood Count 15.1 x10^3/uL (4.0-11.0) Red Blood Count 3.53 x10^6/uL (4.30-5.70) Hemoglobin 10.8 g/dL (13.0-17.5) Hematocrit 34.3 % (39.0-53.0) Mean Corpuscular Volume 97 fL (79-100) Mean Corpuscular Hemoglobin 31 pg (25-35) Mean Corpuscular Hemoglobin Concent 32 g/dL (31-37) Red Cell Distribution Width 16.4 % (11.5-14.5) Platelet Count 404 x10^3/uL (140-400) Sodium Level 133 mmol/L (136-145) Potassium Level 4.2 mmol/L (3.5-5.1) Chloride Level 91 mmol/L (98-107) Carbon Dioxide Level 25 mmol/L (21-32) Anion Gap 17 (6-14) Blood Urea Nitrogen 67 mg/dL (8-26) Creatinine 9.6 mg/dL (0.7-1.3) Estimated GFR (Cockcroft-Gault) 5.7 BUN/Creatinine Ratio 7 (6-20) Glucose Level 121 mg/dL (70-99) Calcium Level 7.7 mg/dL (8.5-10.1) Total Bilirubin 0.3 mg/dL (0.2-1.0) Aspartate Amino Transf (AST/SGOT) 36 U/L (15-37) Alanine Aminotransferase (ALT/SGPT) 9 U/L (16-63) Alkaline Phosphatase 106 U/L (46-116) Total Protein 6.0 g/dL (6.4-8.2) Albumin 1.3 g/dL (3.4-5.0) Albumin/Globulin Ratio 0.3 (1.0-1.7) Test 08/08/19 10:31 Glucose (Fingerstick) 226 mg/dL (70-99) Review of Systems Review of Systems neg 14 pt reviewed with him Assessment and Plan Assessmemt and Plan Problems Medical Problems: (1) Dialysis AV fistula malfunction Status: Acute (2) ESRD (end stage renal disease) Status: Acute Comment Review of Relevant I have reviewed the following items alex (where applicable) has been applied. Labs Laboratory Tests Test 08/06/19 14:50 08/06/19 15:49 08/06/19 16:06 08/06/19 17:47 White Blood Count 14.1 x10^3/uL (4.0-11.0) Red Blood Count 3.30 x10^6/uL (4.30-5.70) Hemoglobin 10.3 g/dL (13.0-17.5) Hematocrit 31.2 % (39.0-53.0) Mean Corpuscular Volume 95 fL (79-100) Mean Corpuscular Hemoglobin 31 pg (25-35) Mean Corpuscular Hemoglobin Concent 33 g/dL (31-37) Red Cell Distribution Width 16.2 % (11.5-14.5) Platelet Count 481 x10^3/uL (140-400) Neutrophils (%) (Auto) 85 % (31-73) Lymphocytes (%) (Auto) 4 % (24-48) Monocytes (%) (Auto) 9 % (0-9) Eosinophils (%) (Auto) 1 % (0-3) Basophils (%) (Auto) 1 % (0-3) Neutrophils # (Auto) 11.9 x10^3/uL (1.8-7.7) Lymphocytes # (Auto) 0.6 x10^3/uL (1.0-4.8) Monocytes # (Auto) 1.3 x10^3/uL (0.0-1.1) Eosinophils # (Auto) 0.1 x10^3/uL (0.0-0.7) Basophils # (Auto) 0.1 x10^3/uL (0.0-0.2) Prothrombin Time 12.8 SEC (11.7-14.0) Prothromb Time International Ratio 1.0 (0.8-1.1) Activated Partial Thromboplast Time 36 SEC (24-38) Sodium Level 134 mmol/L (136-145) Potassium Level 3.7 mmol/L (3.5-5.1) Chloride Level 94 mmol/L (98-107) Carbon Dioxide Level 24 mmol/L (21-32) Anion Gap 16 (6-14) Blood Urea Nitrogen 67 mg/dL (8-26) Creatinine 8.8 mg/dL (0.7-1.3) Estimated GFR (Cockcroft-Gault) 6.3 BUN/Creatinine Ratio 8 (6-20) Glucose Level 31 mg/dL (70-99) Calcium Level 8.1 mg/dL (8.5-10.1) Total Bilirubin 0.2 mg/dL (0.2-1.0) Aspartate Amino Transf (AST/SGOT) 63 U/L (15-37) Alanine Aminotransferase (ALT/SGPT) 10 U/L (16-63) Alkaline Phosphatase 102 U/L (46-116) Total Protein 6.0 g/dL (6.4-8.2) Albumin 1.5 g/dL (3.4-5.0) Albumin/Globulin Ratio 0.3 (1.0-1.7) Glucose (Fingerstick) 32 mg/dL (70-99) 120 mg/dL (70-99) 183 mg/dL (70-99) Test 08/06/19 20:29 08/06/19 23:43 08/07/19 05:25 08/07/19 07:33 Glucose (Fingerstick) 285 mg/dL (70-99) 357 mg/dL (70-99) 184 mg/dL (70-99) White Blood Count 13.5 x10^3/uL (4.0-11.0) Red Blood Count 3.01 x10^6/uL (4.30-5.70) Hemoglobin 9.2 g/dL (13.0-17.5) Hematocrit 28.7 % (39.0-53.0) Mean Corpuscular Volume 95 fL (79-100) Mean Corpuscular Hemoglobin 31 pg (25-35) Mean Corpuscular Hemoglobin Concent 32 g/dL (31-37) Red Cell Distribution Width 16.1 % (11.5-14.5) Platelet Count 405 x10^3/uL (140-400) Neutrophils (%) (Auto) 85 % (31-73) Lymphocytes (%) (Auto) 4 % (24-48) Monocytes (%) (Auto) 10 % (0-9) Eosinophils (%) (Auto) 0 % (0-3) Basophils (%) (Auto) 1 % (0-3) Neutrophils # (Auto) 11.4 x10^3/uL (1.8-7.7) Lymphocytes # (Auto) 0.6 x10^3/uL (1.0-4.8) Monocytes # (Auto) 1.4 x10^3/uL (0.0-1.1) Eosinophils # (Auto) 0.1 x10^3/uL (0.0-0.7) Basophils # (Auto) 0.1 x10^3/uL (0.0-0.2) Sodium Level 138 mmol/L (136-145) Potassium Level 3.6 mmol/L (3.5-5.1) Chloride Level 96 mmol/L (98-107) Carbon Dioxide Level 26 mmol/L (21-32) Anion Gap 16 (6-14) Blood Urea Nitrogen 62 mg/dL (8-26) Creatinine 8.6 mg/dL (0.7-1.3) Estimated GFR (Cockcroft-Gault) 6.5 Glucose Level 24 mg/dL (70-99) Calcium Level 7.6 mg/dL (8.5-10.1) Test 08/07/19 07:56 08/07/19 09:52 08/07/19 10:05 08/07/19 11:09 Glucose (Fingerstick) 87 mg/dL (70-99) 33 mg/dL (70-99) 123 mg/dL (70-99) 111 mg/dL (70-99) Test 08/07/19 11:42 08/07/19 16:02 08/07/19 22:52 08/08/19 00:18 Glucose (Fingerstick) 112 mg/dL (70-99) 172 mg/dL (70-99) 363 mg/dL (70-99) 400 mg/dL (70-99) Test 08/08/19 08:01 08/08/19 08:09 08/08/19 09:00 08/08/19 09:06 Glucose (Fingerstick) 38 mg/dL (70-99) 38 mg/dL (70-99) 133 mg/dL (70-99) White Blood Count 15.1 x10^3/uL (4.0-11.0) Red Blood Count 3.53 x10^6/uL (4.30-5.70) Hemoglobin 10.8 g/dL (13.0-17.5) Hematocrit 34.3 % (39.0-53.0) Mean Corpuscular Volume 97 fL (79-100) Mean Corpuscular Hemoglobin 31 pg (25-35) Mean Corpuscular Hemoglobin Concent 32 g/dL (31-37) Red Cell Distribution Width 16.4 % (11.5-14.5) Platelet Count 404 x10^3/uL (140-400) Sodium Level 133 mmol/L (136-145) Potassium Level 4.2 mmol/L (3.5-5.1) Chloride Level 91 mmol/L (98-107) Carbon Dioxide Level 25 mmol/L (21-32) Anion Gap 17 (6-14) Blood Urea Nitrogen 67 mg/dL (8-26) Creatinine 9.6 mg/dL (0.7-1.3) Estimated GFR (Cockcroft-Gault) 5.7 BUN/Creatinine Ratio 7 (6-20) Glucose Level 121 mg/dL (70-99) Calcium Level 7.7 mg/dL (8.5-10.1) Total Bilirubin 0.3 mg/dL (0.2-1.0) Aspartate Amino Transf (AST/SGOT) 36 U/L (15-37) Alanine Aminotransferase (ALT/SGPT) 9 U/L (16-63) Alkaline Phosphatase 106 U/L (46-116) Total Protein 6.0 g/dL (6.4-8.2) Albumin 1.3 g/dL (3.4-5.0) Albumin/Globulin Ratio 0.3 (1.0-1.7) Test 08/08/19 10:31 Glucose (Fingerstick) 226 mg/dL (70-99) Laboratory Tests Test 08/07/19 11:42 08/07/19 16:02 08/07/19 22:52 08/08/19 00:18 Glucose (Fingerstick) 112 mg/dL (70-99) 172 mg/dL (70-99) 363 mg/dL (70-99) 400 mg/dL (70-99) Test 08/08/19 08:01 08/08/19 08:09 08/08/19 09:00 08/08/19 09:06 Glucose (Fingerstick) 38 mg/dL (70-99) 38 mg/dL (70-99) 133 mg/dL (70-99) White Blood Count 15.1 x10^3/uL (4.0-11.0) Red Blood Count 3.53 x10^6/uL (4.30-5.70) Hemoglobin 10.8 g/dL (13.0-17.5) Hematocrit 34.3 % (39.0-53.0) Mean Corpuscular Volume 97 fL (79-100) Mean Corpuscular Hemoglobin 31 pg (25-35) Mean Corpuscular Hemoglobin Concent 32 g/dL (31-37) Red Cell Distribution Width 16.4 % (11.5-14.5) Platelet Count 404 x10^3/uL (140-400) Sodium Level 133 mmol/L (136-145) Potassium Level 4.2 mmol/L (3.5-5.1) Chloride Level 91 mmol/L (98-107) Carbon Dioxide Level 25 mmol/L (21-32) Anion Gap 17 (6-14) Blood Urea Nitrogen 67 mg/dL (8-26) Creatinine 9.6 mg/dL (0.7-1.3) Estimated GFR (Cockcroft-Gault) 5.7 BUN/Creatinine Ratio 7 (6-20) Glucose Level 121 mg/dL (70-99) Calcium Level 7.7 mg/dL (8.5-10.1) Total Bilirubin 0.3 mg/dL (0.2-1.0) Aspartate Amino Transf (AST/SGOT) 36 U/L (15-37) Alanine Aminotransferase (ALT/SGPT) 9 U/L (16-63) Alkaline Phosphatase 106 U/L (46-116) Total Protein 6.0 g/dL (6.4-8.2) Albumin 1.3 g/dL (3.4-5.0) Albumin/Globulin Ratio 0.3 (1.0-1.7) Test 08/08/19 10:31 Glucose (Fingerstick) 226 mg/dL (70-99) Medications Current Medications Acetaminophen/ Codeine Phosphate (Tylenol #3) 1 tab PRN Q6HRS PRN PO MODERATE PAIN; Start 08/06/19 at 14:30 Acetaminophen (Tylenol) 500 mg PRN Q6HRS PRN PO MILD PAIN / TEMP Last administered on 08/07/19at 03:00; Start 08/06/19 at 14:30 Clonidine HCl (Catapres) 0.1 mg PRN Q1HR PRN PO HYPERTENSION; Start 08/06/19 at 14:30 Ondansetron HCl (Zofran) 4 mg PRN Q6HRS PRN IVP NAUSEA/VOMITING Last administered on 08/07/19at 03:00; Start 08/06/19 at 14:30 Temazepam (Restoril) 7.5 mg PRN QHS PRN PO INSOMNIA; Start 08/06/19 at 14:30 Calcium Carbonate/ Glycine (Tums) 500 mg PRN AFTMEALHC PRN PO INDIGESTION; Start 08/06/19 at 14:30 Oxycodone/ Acetaminophen (Percocet 5/325) 1 tab PRN Q4HRS PRN PO SEVERE PAIN, 2ND CHOICE; Start 08/06/19 at 14:30 Amlodipine Besylate (Norvasc) 10 mg DAILY PO Last administered on 08/07/19 09:11; Start 08/07/19 at 09:00; Stop 08/08/19 at 08:26; Status DC Atorvastatin Calcium (Lipitor) 40 mg HS PO Last administered on 08/07/19at 22:32; Start 08/06/19 at 21:00 Diazepam (Valium) 20 mg TID PRN PRN PO ANXIETY / AGITATION; Start 08/06/19 at 14:30; Stop 08/06/19 at 15:27; Status DC Acetaminophen/ Hydrocodone Bitart (Lortab 5/325) 1 tab QID PRN PO SEVERE PAIN, 1ST CHOICE Last administered on 08/06/19at 20:29; Start 08/06/19 at 14:30 Montelukast Sodium (Singulair) 10 mg HS PRN PO ALLERGIES; Start 08/06/19 at 14:30 Ondansetron HCl (Zofran Odt) 4 mg Q6HRS PRN PO NAUSEA; Start 08/06/19 at 14:30 Tamsulosin HCl (Flomax) 0.4 mg HS PO Last administered on 08/07/19at 22:32; Start 08/06/19 at 21:00; Stop 08/08/19 at 08:26; Status DC Carvedilol (Coreg) 25 mg BIDWMEALS PO Last administered on 08/07/19 09:11; Start 08/06/19 at 17:00; Stop 08/08/19 at 08:26; Status DC Non-Formulary Medication (Gabapentin ) 300 mg TID PO ; Start 08/06/19 at 21:00; Stop 08/06/19 at 15:27; Status DC Hydralazine HCl (Apresoline) 100 mg TID PO Last administered on 11/19/19at 09:11; Start 08/06/19 at 21:00; Stop 08/08/19 at 08:26; Status DC Insulin Glargine (Lantus Syringe) 11 unit QHS SQ Last administered on 08/07/19at 22:54; Start 08/06/19 at 21:00; Stop 08/08/19 at 08:27; Status DC Insulin Human Lispro (HumaLOG) 22 units TIDWMEALS SQ ; Start 08/06/19 at 17:00; Stop 08/08/19 at 08:27; Status DC Losartan Potassium (Cozaar) 100 mg QHS PO Last administered on 08/06/19at 20:25; Start 08/06/19 at 21:00; Stop 08/08/19 at 08:27; Status DC Insulin Human Lispro (HumaLOG) 0-9 UNITS TIDWMEALS SQ ; Start 08/06/19 at 17:00 Dextrose (Dextrose 50%-Water Syringe) 12.5 gm PRN Q15MIN PRN IV SEE COMMENTS Last administered on 08/07/19at 07:15; Start 08/06/19 at 14:30; Stop 08/07/19 at 20:24; Status DC Clonidine HCl (Catapres) 0.1 mg PRN Q1HR PRN PO HYPERTENSION; Start 08/06/19 at 14:30; Status UNV Nicotine (Nicoderm Cq 21mg) 1 patch PRN DAILY PRN TD SMOKING CESSATION Last administered on 08/06/19at 18:07; Start 08/06/19 at 15:30 Nicotine Polacrilex (Nicorette Gum) 1 each PRN Q1HR PRN BC SMOKING CESSATION; Start 08/06/19 at 15:30 Diazepam (Valium) 10 mg TID PRN PRN PO ANXIETY / AGITATION; Start 08/06/19 at 15:30; Stop 08/06/19 at 22:25; Status DC Gabapentin (Neurontin) 300 mg DAILY PO Last administered on 08/08/19at 09:03; Start 08/07/19 at 09:00 Dextrose 250 ml @ As Directed STK-MED ONCE IV ; Start 08/06/19 at 15:30; Stop 08/06/19 at 15:30; Status DC Dextrose/Sodium Chloride 500 ml @ 0 mls/hr 1X ONCE IV Last administered on 08/06/19at 15:30; Start 08/06/19 at 15:30; Stop 08/06/19 at 15:35; Status DC Dextrose (Dextrose 50%-Water Syringe) 25 gm STK-MED ONCE IV ; Start 08/06/19 at 15:51; Stop 08/06/19 at 16:50; Status DC Ondansetron HCl (Zofran) 4 mg PRN Q8HRS PRN IV NAUSEA/VOMITING; Start 08/06/19 at 18:15; Stop 08/07/19 at 18:14; Status UNV Morphine Sulfate (Morphine Sulfate) 4 mg PRN Q2HR PRN IV PAIN SEVERE; Start 08/06/19 at 18:15; Stop 08/07/19 at 18:14; Status DC Furosemide (Lasix) 80 mg BID94 PO Last administered on 08/06/19at 19:51; Start 08/06/19 at 19:00; Stop 08/08/19 at 08:26; Status DC Calcitriol (Rocaltrol) 0.5 mcg DAILY PO Last administered on 08/08/19at 09:03; Start 08/07/19 at 09:00 Pantoprazole Sodium (Protonix) 40 mg DAILYAC PO Last administered on 08/08/19at 09:05; Start 08/07/19 at 07:30 Diazepam (Valium) 10 mg TID PRN PRN PO ANXIETY / AGITATION Last administered on 08/07/19at 22:32; Start 08/06/19 at 22:25 Insulin Human Lispro (HumaLOG) 15 units 1X ONCE SQ Last administered on 08/07/19at 00:13; Start 08/07/19 at 00:15; Stop 08/07/19 at 00:16; Status DC Dextrose (Dextrose 50%-Water Syringe) 12.5 gm PRN Q15MIN PRN IV SEE COMMENTS Last administered on 08/08/19at 08:15; Start 08/07/19 at 07:45 Dextrose 250 ml PRN Q15MIN PRN IV SEE COMMENTS; Start 08/07/19 at 07:45 Iodixanol (Visipaque 320) 100 ml STK-MED ONCE .ROUTE ; Start 08/07/19 at 08:59; Stop 08/07/19 at 08:59; Status DC Lidocaine HCl (Buffered Lidocaine 1%) 3 ml STK-MED ONCE .ROUTE ; Start 08/07/19 at 08:59; Stop 08/07/19 at 09:00; Status DC Heparin Sodium/ Sodium Chloride 1,500 ml @ As Directed STK-MED ONCE .ROUTE ; Start 08/07/19 at 09:00; Stop 08/07/19 at 09:00; Status DC Midazolam HCl (Versed) 5 mg STK-MED ONCE .ROUTE ; Start 08/07/19 at 09:00; Stop 08/07/19 at 09:01; Status DC Fentanyl Citrate (Fentanyl 5ml Vial) 250 mcg STK-MED ONCE .ROUTE ; Start 08/07/19 at 09:00; Stop 08/07/19 at 09:01; Status DC Heparin Sodium (Porcine) (Heparin Sodium) 10,000 unit STK-MED ONCE .ROUTE ; Start 08/07/19 at 09:01; Stop 08/07/19 at 09:01; Status DC Dextrose (Dextrose 50%-Water Syringe) 25 gm STK-MED ONCE IV ; Start 08/07/19 at 09:53; Stop 08/07/19 at 09:53; Status DC Dextrose (Dextrose 50%-Water Syringe) 25 gm 1X ONCE IV Last administered on 08/07/19at 09:55; Start 08/07/19 at 10:00; Stop 08/07/19 at 10:01; Status DC Heparin Sodium/ Sodium Chloride (HEPARIN for ARTERIAL LINE FLUSH) 1,000 unit 1X ONCE IART Last administered on 08/07/19at 10:45; Start 08/07/19 at 10:45; Stop 08/07/19 at 10:46; Status DC Heparin Sodium/ Sodium Chloride (HEPARIN for ARTERIAL LINE FLUSH) 1,000 unit 1X ONCE IART Last administered on 08/07/19at 10:45; Start 08/07/19 at 10:45; Stop 08/07/19 at 10:46; Status DC Lidocaine HCl (Buffered Lidocaine 1%) 3 ml 1X ONCE IJ Last administered on 08/07/19at 10:45; Start 08/07/19 at 10:45; Stop 08/07/19 at 10:46; Status DC Midazolam HCl (Versed) 5 mg 1X ONCE IV Last administered on 08/07/19at 10:45; Start 08/07/19 at 10:45; Stop 08/07/19 at 10:46; Status DC Fentanyl Citrate (Fentanyl 5ml Vial) 250 mcg 1X ONCE IV Last administered on 08/07/19at 10:45; Start 08/07/19 at 10:45; Stop 08/07/19 at 10:46; Status DC Iodixanol (Visipaque 320) 100 ml 1X ONCE IART Last administered on 08/07/19at 10:45; Start 08/07/19 at 10:45; Stop 08/07/19 at 10:46; Status DC Info (CONTRAST GIVEN -- Rx MONITORING) 1 each PRN DAILY PRN MC SEE COMMENTS; Start 08/07/19 at 10:45; Stop 08/09/19 at 10:44 Nitroglycerin (Nitroglycerin) 200 mcg 1X ONCE IART Last administered on 08/07/19at 11:00; Start 08/07/19 at 11:00; Stop 08/07/19 at 11:01; Status DC Iodixanol (Visipaque 320) 100 ml STK-MED ONCE .ROUTE ; Start 08/07/19 at 11:08; Stop 08/07/19 at 11:08; Status DC Heparin Sodium (Porcine) (Heparin Sodium) 4,000 unit 1X ONCE IV Last administered on 08/07/19at 11:15; Start 08/07/19 at 11:15; Stop 08/07/19 at 11:16; Status DC Sodium Chloride 500 ml @ 500 mls/hr 1X ONCE IV Last administered on 08/07/19at 12:30; Start 08/07/19 at 12:30; Stop 08/07/19 at 17:55; Status DC Sodium Chloride 1,000 ml @ 1,000 mls/hr 1X ONCE IV Last administered on 08/07/19at 17:58; Start 08/07/19 at 18:00; Stop 08/07/19 at 18:59; Status DC Insulin Human Lispro (HumaLOG) 15 units 1X ONCE SQ Last administered on 08/07/19at 23:54; Start 08/07/19 at 23:45; Stop 08/07/19 at 23:50; Status DC Sodium Chloride 1,000 ml @ 80 mls/hr [id number] IV Last administered on 08/08/19at 01:54; Start 08/08/19 at 01:45 Dopamine HCl/ Dextrose 250 ml @ 5.39 mls/hr CONT PRN IV SEE I/O RECORD Last administered on 08/08/19at 01:55; Start 08/08/19 at 01:45 Glucose (Insta-Glucose) 15 gm STK-MED ONCE .ROUTE ; Start 08/08/19 at 08:04; Stop 08/08/19 at 08:05; Status DC Furosemide (Lasix) 40 mg BID94 PO ; Start 08/08/19 at 08:30; Stop 08/08/19 at 08:28; Status DC Furosemide (Lasix) 40 mg BID94 PO ; Start 08/08/19 at 09:00 Active Scripts Active [place] 5-325 Tablet (Acetaminophen/Hydrocodone Bitart) 1 Each Tablet 1-2 Each PO PRN Q6HRS PRN as needed for pain Reported Diazepam 10 Mg Tablet 10 Mg PO HS Omeprazole 20 Mg Tablet.dr 20 Mg PO DAILY Calcitriol 0.5 Mcg Capsule 0.5 Mcg PO DAILY Furosemide 80 Mg Tablet 80 Mg PO BID Diazepam 10 Mg Tablet 20 PRN PRN Glucagen (Glucagon,Human Recombinant) 1 Mg Vial 1 PRN PRN [place] 5-325 Tablet (Acetaminophen/Hydrocodone Bitart) 1 Each Tablet 1 Tab PO PRN Q6HRS PRN [place] 5-325 Tablet (Acetaminophen/Hydrocodone Bitart) 1 Each Tablet 1-2 Tab PO Q4-6HRS LAST DOSE GIVEN: 12/21/18 at 1500 so next dose at 7:00PM as needed for pain Tamsulosin Hcl 0.4 Mg Cap.er.24h 1 Cap PO HS Montelukast Sodium Tablet (Montelukast Sodium) 10 Mg Tablet 1 Tab PO HS PRN Ondansetron Odt (Ondansetron) 4 Mg Tab.rapdis 1 Tab PO PRN Q6-8HRS PRN Lantus Solostar (Insulin Glargine,Hum.rec.anlog) 100 Unit/1 Ml Insuln.pen 11 Unit SQ QHS Hydralazine Hcl 100 Mg Tablet 1 Tab PO TID Humalog (Insulin Lispro) 100 Unit/1 Ml Cartridge 22 Unit SQ TIDWMEALS Gabapentin 600 Mg Tablet 300 Mg PO TID Cozaar (Losartan Potassium) 100 Mg Tablet 100 Mg PO HS Carvedilol 25 Mg Tablet 25 Mg PO BIDWMEALS Atorvastatin Calcium 40 Mg Tablet 40 Mg PO HS Amlodipine Besylate 10 Mg Tablet 10 Mg PO DAILY Vitals/I & O Vital Sign - Last 24 Hours 08/07/19 08/07/19 08/07/19 08/07/19 11:48 12:00 12:15 12:30 Pulse 66 65 70 74 Resp 10 18 18 18 B/P (MAP) 102/41 (61) 83/45 (58) 81/38 (52) Pulse Ox 98 90 90 90 O2 Delivery Nasal Cannula Nasal Cannula Nasal Cannula Nasal Cannula O2 Flow Rate 2.0 2.0 2.0 2.0 08/07/19 08/07/19 08/07/19 08/07/19 13:00 13:30 14:00 17:15 Pulse 67 67 69 75 Resp 18 18 18 18 B/P (MAP) 91/35 (53) 108/33 (58) 87/36 (53) 62/28 (39) Pulse Ox 90 90 90 O2 Delivery Nasal Cannula Nasal Cannula Nasal Cannula Nasal Cannula O2 Flow Rate 2.0 2.0 2.0 2.0 08/07/19 08/07/19 08/07/19 08/07/19 18:00 18:30 19:00 20:00 Temp 98.0 98.0 Pulse 76 76 77 Resp 18 18 16 B/P (MAP) 85/32 (49) 80/49 (59) 85/28 (47) Pulse Ox 92 O2 Delivery Nasal Cannula Nasal Cannula Nasal Cannula Nasal Cannula O2 Flow Rate 2.0 2.0 2.0 2.0 08/07/19 08/07/19 08/07/19 08/07/19 21:00 21:00 21:15 21:30 Temp 98.2 98.2 Pulse 83 80 78 78 Resp 12 12 B/P (MAP) 87/51 87/51 87/67 (74) Pulse Ox 92 98 O2 Delivery Room Air Room Air 08/07/19 08/07/19 08/07/19 08/07/19 21:30 21:45 22:00 22:15 Pulse 78 78 80 Resp 13 12 11 B/P (MAP) 73/38 (50) 99/49 (66) 87/51 (63) Pulse Ox 95 97 94 O2 Delivery Room Air Room Air Room Air Room Air 08/07/19 08/08/19 08/08/19 08/08/19 23:00 00:00 00:00 01:00 Temp 98.6 98.6 Pulse 78 82 78 Resp 17 18 17 B/P (MAP) 90/42 (58) 87/46 (60) 71/39 (50) Pulse Ox 98 93 98 O2 Delivery Room Air Room Air Room Air Room Air 08/08/19 08/08/19 08/08/19 08/08/19 02:00 03:00 04:00 04:00 Temp 97.8 97.8 Pulse 76 75 77 Resp 11 15 15 B/P (MAP) 90/42 (58) 85/39 (54) 101/45 (63) Pulse Ox 92 95 98 O2 Delivery Room Air Room Air Room Air Room Air 08/08/19 08/08/19 08/08/19 08/08/19 05:00 06:00 07:00 08:00 Temp 98.0 98.0 Pulse 78 80 92 94 Resp 15 16 16 15 B/P (MAP) 81/34 (50) 83/49 (60) 115/55 (75) 97/48 (64) Pulse Ox 98 98 98 98 O2 Delivery Room Air Room Air Room Air Room Air 08/08/19 08/08/19 08/08/19 08/08/19 08:00 08:45 09:00 09:45 Pulse 80 80 80 Resp 16 16 16 B/P (MAP) 100/50 (67) 100/50 (67) 81/39 (53) Pulse Ox 98 98 98 O2 Delivery Room Air Room Air Room Air Room Air 08/08/19 08/08/19 10:00 11:00 Pulse 80 78 Resp 16 16 B/P (MAP) 88/48 (61) 99/48 (65) Pulse Ox 98 98 O2 Delivery Room Air Room Air Intake and Output 08/07/19 08/07/19 08/08/19 15:00 23:00 07:00 Output Total 0 ml 0 ml Balance 0 ml 0 ml Nutrition Consultation Dietary Evaluation: Recommendations by RD: Dietary education by RD, Increase Calorie Intake, Protein supplementation Comments: REC ADA, Renal diet when able offer nepro supplements prn Expected Outcomes/Goals: to meet >75% est nutr needs Malnutrition Findings: Food and Nutrition Intake (Mod: <75% est energy req 7days Weight Status: Appropriate RICKIE GRAMAJO MD Aug 08, 2019 11:33
--- NOTE | 2019-08-08 11:59 | NUR ---
SS following for discharge planning. SS reviewed pt chart. Pt is from home with spouse and is currently on room air. SS will continue to follow for discharge planning.
[2019-08-08 14:55] LABS: CHOLESTEROL/HDL RATIO 3.3
[2019-08-08] MEDS: NICOTINE 21MG PATCH. TD PRN (15:07)
[2019-08-08] MEDS: ASPIRIN ENTERIC COATED 81 MG TABLET.DR. PO SCH (15:07)
--- NOTE | 2019-08-08 16:05 | PDOC ---
SUBJECTIVE ROS Was hypotensive post IR procedure yesterday, no response to IVF, transferred to ICU, was on pressors this am Off pressors now, states feeling good, wants to go home. Held PD last night 10/21 to above. Denies SOB OBJECTIVE Vital Signs Vital Signs Date Time Temp Pulse Resp B/P (MAP) Pulse Ox O2 Delivery O2 Flow Rate FiO2 08/08/19 12:00 Room Air 08/08/19 11:00 78 16 99/48 (65) 98 08/08/19 08:00 98.0 98.0 08/07/19 20:00 2.0 I & 0 Intake and Output 08/08/19 07:00 Output Total 0 ml Balance 0 ml Output Urine Total 0 ml PHYSICAL EXAM Physical Exam General: No acute distress,sitting up HEENT: OM moist Neck Supple Lungs: Clear to auscultation, Normal air movement Heart: S1S2, RRR, no thrills, no rubs, no gallops, no murmurs Cardiovascular: S1, S2 Abdomen: Normal bowel sounds, Soft, No tenderness, PD catheter in place, no e/ o Exit site infection Extremities: left av fistula Skin: No rashes, No quinteros DIAGNOSIS/ASSESSMENT Assessment & Plan ESRD- Dr Riggs's pt at [facility] PD held last night 2 Hypotension Currently stable, off pressors, discuss PD prescription with DRдмитрий Hypotension - required Dopamine , off now BP still low normal HTN- low BP as above Peritonitis- was on Abx- left AMA PD fluid clear, Off Abx, Repeat Gram stain sent Asymptomatic 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 May need to ligate the AVF if continues to cause hand ischemia. If the patient needs to continue hemodialysis he may benefit from a DRIL procedure. Recommend patient wear a glove or mitten at all times, continue statin and antiplatelet therapy. He is not willing to to quit tobacco Anemia- VAN for Hgb < 10 He is on weekly EPo as OP, Hx of GI bleed , currently Hgb Start VAN if hgb <10 DM- Non compliance with meds and diet COMMENT/RELEVANT DATA Meds Current Medications Medications (Trade) Dose Ordered Sig/Rosalino Start Time Stop Time Status Last Admin Dose Admin Acetaminophen (Tylenol) 500 mg PRN Q6HRS PRN 08/06/19 14:30 08/07/19 03:00 500 MG Acetaminophen/ Codeine Phosphate (Tylenol #3) 1 tab PRN Q6HRS PRN 08/06/19 14:30 Acetaminophen/ Hydrocodone Bitart (Lortab 5/325) 1 tab QID PRN 08/06/19 14:30 08/06/19 20:29 1 TAB Amlodipine Besylate (Norvasc) 10 mg DAILY 08/07/19 09:00 08/08/19 08:26 DC 08/07/19 09:11 10 MG Aspirin (Ecotrin) 81 mg DAILYWBKFT 08/08/19 15:00 08/08/19 15:07 81 MG Atorvastatin Calcium (Lipitor) 40 mg HS 08/06/19 21:00 08/07/19 22:32 40 MG Calcitriol (Rocaltrol) 0.5 mcg DAILY 08/07/19 09:00 08/08/19 09:03 0.5 MCG Calcium Carbonate/ Glycine (Tums) 500 mg PRN AFTMEALHC PRN 08/06/19 14:30 Carvedilol (Coreg) 25 mg BIDWMEALS 08/06/19 17:00 08/08/19 08:26 DC 08/07/19 09:11 25 MG Clonidine HCl (Catapres) 0.1 mg PRN Q1HR PRN 08/06/19 14:30 UNV Dextrose (Dextrose 50%-Water Syringe) 25 gm 1X ONCE 08/07/19 10:00 08/07/19 10:01 DC 08/07/19 09:55 25 GM Dextrose/Sodium Chloride 500 ml @ 0 mls/hr 1X ONCE 08/06/19 15:30 08/06/19 15:35 DC 08/06/19 15:30 75 MLS/HR Diazepam (Valium) 10 mg TID PRN PRN 08/06/19 22:25 08/07/19 22:32 10 MG Dopamine HCl/ Dextrose 250 ml @ 5.39 mls/hr CONT PRN 08/08/19 01:45 08/08/19 01:55 5.39 MLS/HR Fentanyl Citrate (Fentanyl 5ml Vial) 250 mcg 1X ONCE 08/07/19 10:45 08/07/19 10:46 DC 08/07/19 10:45 25 MCG Furosemide (Lasix) 40 mg [id number] 08/08/19 09:00 Gabapentin (Neurontin) 300 mg DAILY 08/07/19 09:00 08/08/19 09:03 300 MG Glucose (Insta-Glucose) 15 gm STK-MED ONCE 08/08/19 08:04 08/08/19 08:05 DC Heparin Sodium (Porcine) (Heparin Sodium) 4,000 unit 1X ONCE 08/07/19 11:15 08/07/19 11:16 DC 08/07/19 11:15 4,000 UNIT Heparin Sodium/ Sodium Chloride (HEPARIN for ARTERIAL LINE FLUSH) 1,000 unit 1X ONCE 08/07/19 10:45 08/07/19 10:46 DC 08/07/19 10:45 1,000 UNIT Hydralazine HCl (Apresoline) 100 mg TID 08/06/19 21:00 08/08/19 08:26 DC 08/07/19 09:11 100 MG Info (CONTRAST GIVEN -- Rx MONITORING) 1 each PRN DAILY PRN 08/07/19 10:45 08/09/19 10:44 Insulin Glargine (Lantus Syringe) 11 unit QHS 08/06/19 21:00 08/08/19 08:27 DC 08/07/19 22:54 11 UNIT Insulin Human Lispro (HumaLOG) 15 units 1X ONCE 08/07/19 23:45 08/07/19 23:50 DC 08/07/19 23:54 15 UNITS Iodixanol (Visipaque 320) 100 ml STK-MED ONCE 08/07/19 11:08 08/07/19 11:08 DC Lidocaine HCl (Buffered Lidocaine 1%) 3 ml 1X ONCE 08/07/19 10:45 08/07/19 10:46 DC 08/07/19 10:45 3 ML Losartan Potassium (Cozaar) 100 mg QHS 08/06/19 21:00 08/08/19 08:27 DC 08/06/19 20:25 100 MG Midazolam HCl (Versed) 5 mg 1X ONCE 08/07/19 10:45 08/07/19 10:46 DC 08/07/19 10:45 1 MG Montelukast Sodium (Singulair) 10 mg HS PRN 08/06/19 14:30 Morphine Sulfate (Morphine Sulfate) 4 mg PRN Q2HR PRN 08/06/19 18:15 08/07/19 18:14 DC Nicotine (Nicoderm Cq 21mg) 1 patch PRN DAILY PRN 08/06/19 15:30 08/08/19 15:07 1 PATCH Nicotine Polacrilex (Nicorette Gum) 1 each PRN Q1HR PRN 08/06/19 15:30 Nitroglycerin (Nitroglycerin) 200 mcg 1X ONCE 08/07/19 11:00 08/07/19 11:01 DC 08/07/19 11:00 200 MCG Non-Formulary Medication (Gabapentin ) 300 mg TID 08/06/19 21:00 08/06/19 15:27 DC Ondansetron HCl (Zofran Odt) 4 mg Q6HRS PRN 08/06/19 14:30 Ondansetron HCl (Zofran) 4 mg PRN Q8HRS PRN 08/06/19 18:15 08/07/19 18:14 UNV Oxycodone/ Acetaminophen (Percocet 5/325) 1 tab PRN Q4HRS PRN 08/06/19 14:30 Pantoprazole Sodium (Protonix) 40 mg DAILYAC 08/07/19 07:30 08/08/19 09:05 40 MG Sodium Chloride 1,000 ml @ 80 mls/hr [id number] 08/08/19 01:45 08/08/19 15:07 80 MLS/HR Tamsulosin HCl (Flomax) 0.4 mg HS 08/06/19 21:00 08/08/19 08:26 DC 08/07/19 22:32 0.4 MG Temazepam (Restoril) 7.5 mg PRN QHS PRN 08/06/19 14:30 Lab Laboratory Tests Test 08/07/19 22:52 08/08/19 00:18 08/08/19 08:01 08/08/19 08:09 Glucose (Fingerstick) 363 mg/dL (70-99) 400 mg/dL (70-99) 38 mg/dL (70-99) 38 mg/dL (70-99) Test 08/08/19 09:00 08/08/19 09:06 08/08/19 10:31 08/08/19 11:33 White Blood Count 15.1 x10^3/uL (4.0-11.0) Red Blood Count 3.53 x10^6/uL (4.30-5.70) Hemoglobin 10.8 g/dL (13.0-17.5) Hematocrit 34.3 % (39.0-53.0) Mean Corpuscular Volume 97 fL (79-100) Mean Corpuscular Hemoglobin 31 pg (25-35) Mean Corpuscular Hemoglobin Concent 32 g/dL (31-37) Red Cell Distribution Width 16.4 % (11.5-14.5) Platelet Count 404 x10^3/uL (140-400) Sodium Level 133 mmol/L (136-145) Potassium Level 4.2 mmol/L (3.5-5.1) Chloride Level 91 mmol/L (98-107) Carbon Dioxide Level 25 mmol/L (21-32) Anion Gap 17 (6-14) Blood Urea Nitrogen 67 mg/dL (8-26) Creatinine 9.6 mg/dL (0.7-1.3) Estimated GFR (Cockcroft-Gault) 5.7 BUN/Creatinine Ratio 7 (6-20) Glucose Level 121 mg/dL (70-99) Calcium Level 7.7 mg/dL (8.5-10.1) Total Bilirubin 0.3 mg/dL (0.2-1.0) Aspartate Amino Transf (AST/SGOT) 36 U/L (15-37) Alanine Aminotransferase (ALT/SGPT) 9 U/L (16-63) Alkaline Phosphatase 106 U/L (46-116) Total Protein 6.0 g/dL (6.4-8.2) Albumin 1.3 g/dL (3.4-5.0) Albumin/Globulin Ratio 0.3 (1.0-1.7) Triglycerides Level 69 mg/dL (0-150) Cholesterol Level 163 mg/dL (0-200) LDL Cholesterol, Calculated 99 mg/dL (0-100) VLDL Cholesterol, Calculated 14 mg/dL (0-40) Non-HDL Cholesterol Calculated 113 mg/dL (0-129) HDL Cholesterol 50 mg/dL (40-60) Cholesterol/HDL Ratio 3.3 Glucose (Fingerstick) 133 mg/dL (70-99) 226 mg/dL (70-99) 235 mg/dL (70-99) Results All relevant outside records, renal labs, imaging studies, telemetry/EKG's were reviewed. IVAN APARICIO MD Aug 08, 2019 16:05
[2019-08-08] MEDS ORDERED: INSULIN LISPRO 300 UNITS/3 ML VIAL. SQ ONE (19:00)
[2019-08-08] MEDS: HYDROcodone/APAP 5/325MG 1 TAB TABLET PO PRN (19:53)
[2019-08-08] MEDS: ATORVASTATIN CALCIUM 40 MG TABLET. PO SCH (20:55)
[2019-08-08] MEDS: diazePAM 5 MG TABLET PO PRN (20:55)
[2019-08-08] MEDS: oxyCODONE/APAP 5/325 1 TAB TABLET PO PRN (21:26)
[2019-08-09] VITALS (8 sets, daily range): BP systolic 106–125; BP diastolic 51–63
[2019-08-09] MEDS: IV NORMAL SALINE 1000ML BAG 1,000 ML IV SCH (04:49)
[2019-08-09] MEDS: oxyCODONE/APAP 5/325 1 TAB TABLET PO PRN (07:27)
[2019-08-09] MEDS: ASPIRIN ENTERIC COATED 81 MG TABLET.DR. PO SCH (07:59)
[2019-08-09] MEDS: FUROSEMIDE 40 MG TABLET. PO SCH (07:59)
[2019-08-09] MEDS: PANTOPRAZOLE 40 MG TABLET.DR. PO SCH (07:59)
[2019-08-09] MEDS: CALCITRIOL 0.25 MCG CAPSULE. PO SCH (08:00)
[2019-08-09] MEDS: GABAPENTIN 300 MG CAPSULE. PO SCH (08:00)
[2019-08-09] MEDS: INSULIN LISPRO 300 UNITS/3 ML VIAL. SQ SCH ×2 (08:39→08:40)
--- NOTE | 2019-08-09 09:14 | PDOC ---
SUBJECTIVE ROS BP stable, wants to go home OBJECTIVE Vital Signs Vital Signs Date Time Temp Pulse Resp B/P (MAP) Pulse Ox O2 Delivery O2 Flow Rate FiO2 08/09/19 07:27 96 Room Air 2.0 08/09/19 06:00 86 18 123/59 (80) 08/09/19 04:00 98.0 98.0 I & 0 Intake and Output 08/09/19 07:00 Intake Total 3920.0 ml Output Total 0 ml Balance 3920.0 ml Intake Oral 2920 ml IV Total 1000.0 ml Output Urine Total 0 ml # Voids 1 # Bowel Movements 1 PHYSICAL EXAM Physical Exam General: No acute distress,sitting up HEENT: OM moist Neck Supple Lungs: Clear to auscultation, Normal air movement Heart: S1S2, RRR, no thrills, no rubs, no gallops, no murmurs Cardiovascular: S1, S2 Abdomen: Normal bowel sounds, Soft, No tenderness, PD catheter in place, no e/ o Exit site infection Extremities: left av fistula Skin: No rashes, No quinteros DIAGNOSIS/ASSESSMENT Assessment & Plan ESRD- Dr Riggs's pt at [facility] APD as Dw Endodontist Per Pt good RRF, On PO lasix Hypotension - required Dopamine BP normal HTN- stable Peritonitis- was on Abx- left AMA PD fluid clear, Off Abx, Asymptomatic 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 May need to ligate the AVF if continues to cause hand ischemia. If the patient needs to continue hemodialysis he may benefit from a DRIL procedure. Recommend patient wear a glove or mitten at all times, continue statin and antiplatelet therapy. He is not willing to to quit tobacco Anemia- VAN for Hgb < 10 He is on weekly EPo as OP, Hx of GI bleed , currently Hgb Start VAN if hgb <10 DM- Non compliance with meds and diet COMMENT/RELEVANT DATA Meds Current Medications Medications (Trade) Dose Ordered Sig/Rosalino Start Time Stop Time Status Last Admin Dose Admin Acetaminophen (Tylenol) 500 mg PRN Q6HRS PRN 08/06/19 14:30 08/07/19 03:00 500 MG Acetaminophen/ Codeine Phosphate (Tylenol #3) 1 tab PRN Q6HRS PRN 08/06/19 14:30 Acetaminophen/ Hydrocodone Bitart (Lortab 5/325) 1 tab QID PRN 08/06/19 14:30 08/08/19 19:53 1 TAB Amlodipine Besylate (Norvasc) 10 mg DAILY 08/07/19 09:00 08/08/19 08:26 DC 08/07/19 09:11 10 MG Aspirin (Ecotrin) 81 mg DAILYWBKFT 08/08/19 15:00 08/09/19 07:59 81 MG Atorvastatin Calcium (Lipitor) 40 mg HS 08/06/19 21:00 08/08/19 20:55 40 MG Calcitriol (Rocaltrol) 0.5 mcg DAILY 08/07/19 09:00 08/09/19 08:00 0.5 MCG Calcium Carbonate/ Glycine (Tums) 500 mg PRN AFTMEALHC PRN 08/06/19 14:30 Carvedilol (Coreg) 25 mg BIDWMEALS 08/06/19 17:00 08/08/19 08:26 DC 08/07/19 09:11 25 MG Clonidine HCl (Catapres) 0.1 mg PRN Q1HR PRN 08/06/19 14:30 UNV Dextrose (Dextrose 50%-Water Syringe) 25 gm 1X ONCE 08/07/19 10:00 08/07/19 10:01 DC 08/07/19 09:55 25 GM Dextrose/Sodium Chloride 500 ml @ 0 mls/hr 1X ONCE 08/06/19 15:30 08/06/19 15:35 DC 08/06/19 15:30 75 MLS/HR Diazepam (Valium) 10 mg TID PRN PRN 08/06/19 22:25 08/08/19 20:55 10 MG Dopamine HCl/ Dextrose 250 ml @ 5.39 mls/hr CONT PRN 08/08/19 01:45 08/08/19 01:55 5.39 MLS/HR Fentanyl Citrate (Fentanyl 5ml Vial) 250 mcg 1X ONCE 08/07/19 10:45 08/07/19 10:46 DC 08/07/19 10:45 25 MCG Furosemide (Lasix) 40 mg [id number] 08/08/19 09:00 08/09/19 07:59 40 MG Gabapentin (Neurontin) 300 mg DAILY 08/07/19 09:00 08/09/19 08:00 300 MG Glucose (Insta-Glucose) 15 gm STK-MED ONCE 08/08/19 08:04 08/08/19 08:05 DC Heparin Sodium (Porcine) (Heparin Sodium) 4,000 unit 1X ONCE 08/07/19 11:15 08/07/19 11:16 DC 08/07/19 11:15 4,000 UNIT Heparin Sodium/ Sodium Chloride (HEPARIN for ARTERIAL LINE FLUSH) 1,000 unit 1X ONCE 08/07/19 10:45 08/07/19 10:46 DC 08/07/19 10:45 1,000 UNIT Hydralazine HCl (Apresoline) 100 mg TID 08/06/19 21:00 08/08/19 08:26 DC 08/07/19 09:11 100 MG Info (CONTRAST GIVEN -- Rx MONITORING) 1 each PRN DAILY PRN 08/07/19 10:45 08/09/19 10:44 Insulin Glargine (Lantus Syringe) 10 unit ONCE ONCE 08/09/19 10:00 08/09/19 10:01 Insulin Human Lispro (HumaLOG) 20 units 1X ONCE 08/08/19 19:00 08/08/19 19:01 DC 08/08/19 20:59 20 UNITS Iodixanol (Visipaque 320) 100 ml STK-MED ONCE 08/07/19 11:08 08/07/19 11:08 DC Lidocaine HCl (Buffered Lidocaine 1%) 3 ml 1X ONCE 08/07/19 10:45 08/07/19 10:46 DC 08/07/19 10:45 3 ML Losartan Potassium (Cozaar) 100 mg QHS 08/06/19 21:00 08/08/19 08:27 DC 08/06/19 20:25 100 MG Midazolam HCl (Versed) 5 mg 1X ONCE 08/07/19 10:45 08/07/19 10:46 DC 08/07/19 10:45 1 MG Montelukast Sodium (Singulair) 10 mg HS PRN 08/06/19 14:30 Morphine Sulfate (Morphine Sulfate) 4 mg PRN Q2HR PRN 08/06/19 18:15 08/07/19 18:14 DC Nicotine (Nicoderm Cq 21mg) 1 patch PRN DAILY PRN 08/06/19 15:30 08/08/19 15:07 1 PATCH Nicotine Polacrilex (Nicorette Gum) 1 each PRN Q1HR PRN 08/06/19 15:30 Nitroglycerin (Nitroglycerin) 200 mcg 1X ONCE 08/07/19 11:00 08/07/19 11:01 DC 08/07/19 11:00 200 MCG Non-Formulary Medication (Gabapentin ) 300 mg TID 08/06/19 21:00 08/06/19 15:27 DC Ondansetron HCl (Zofran Odt) 4 mg Q6HRS PRN 08/06/19 14:30 Ondansetron HCl (Zofran) 4 mg PRN Q8HRS PRN 08/06/19 18:15 08/07/19 18:14 UNV Oxycodone/ Acetaminophen (Percocet 5/325) 1 tab PRN Q4HRS PRN 08/06/19 14:30 08/09/19 07:27 1 TAB Pantoprazole Sodium (Protonix) 40 mg DAILYAC 08/07/19 07:30 08/09/19 07:59 40 MG Sodium Chloride 1,000 ml @ 80 mls/hr [id number] 08/08/19 01:45 08/09/19 04:49 80 MLS/HR Tamsulosin HCl (Flomax) 0.4 mg HS 08/06/19 21:00 08/08/19 08:26 DC 08/07/19 22:32 0.4 MG Temazepam (Restoril) 7.5 mg PRN QHS PRN 08/06/19 14:30 08/09/19 01:16 7.5 MG Lab Laboratory Tests Test 08/08/19 10:31 08/08/19 11:33 08/08/19 16:36 08/08/19 17:58 Glucose (Fingerstick) 226 mg/dL (70-99) 235 mg/dL (70-99) 491 mg/dL (70-99) 409 mg/dL (70-99) Test 08/08/19 20:55 08/09/19 08:33 Glucose (Fingerstick) 366 mg/dL (70-99) 348 mg/dL (70-99) Results All relevant outside records, renal labs, imaging studies, telemetry/EKG's were reviewed. IVAN APARICIO MD Aug 09, 2019 09:14
[2019-08-09] MEDS ORDERED: INSULIN GLARGINE SYRINGE. SQ ONE (10:00)
[2019-08-09] MEDS ORDERED: ASPI-612 PO (10:10)
[2019-08-09] MEDS ORDERED: HYDR-3164 PO (10:10)
--- NOTE | 2019-08-09 10:14 | PDOC3 ---
Discharge Summary Visit Information Date of Admission: Aug 06, 2019 Date of Discharge: Aug 09, 2019 Admitting Diagnosis Comment: Clotted left AV fistula s.p balloon angioplasty Brachial artery stenosis concernng for left hand ischemia AbN left UE arterigram AOCD ESRD on PD, daily Recent peritonitis, resolved SMOker HYPOTENSION - dopamine gtt Final Diagnosis Problems Medical Problems: (1) Dialysis AV fistula malfunction Status: Acute (2) ESRD (end stage renal disease) Status: Acute Brief Hospital Course Allergies Allergies Coded Allergies Type Severity Reaction Last Updated Verified lamotrigine Allergy Intermediate HIVES, SHORTNESS OF BREATH 06/01/19 Yes Vital Signs Vital Signs Date Time Temp Pulse Resp B/P (MAP) Pulse Ox O2 Delivery O2 Flow Rate FiO2 08/09/19 08:27 96 Room Air 2.0 08/09/19 06:00 86 18 123/59 (80) 08/09/19 04:00 98.0 98.0 Lab Results Laboratory Tests Test 08/07/19 11:09 08/07/19 11:42 08/07/19 16:02 08/07/19 22:52 Glucose (Fingerstick) 111 mg/dL (70-99) 112 mg/dL (70-99) 172 mg/dL (70-99) 363 mg/dL (70-99) Test 08/08/19 00:18 08/08/19 08:01 08/08/19 08:09 08/08/19 09:00 Glucose (Fingerstick) 400 mg/dL (70-99) 38 mg/dL (70-99) 38 mg/dL (70-99) White Blood Count 15.1 x10^3/uL (4.0-11.0) Red Blood Count 3.53 x10^6/uL (4.30-5.70) Hemoglobin 10.8 g/dL (13.0-17.5) Hematocrit 34.3 % (39.0-53.0) Mean Corpuscular Volume 97 fL (79-100) Mean Corpuscular Hemoglobin 31 pg (25-35) Mean Corpuscular Hemoglobin Concent 32 g/dL (31-37) Red Cell Distribution Width 16.4 % (11.5-14.5) Platelet Count 404 x10^3/uL (140-400) Sodium Level 133 mmol/L (136-145) Potassium Level 4.2 mmol/L (3.5-5.1) Chloride Level 91 mmol/L (98-107) Carbon Dioxide Level 25 mmol/L (21-32) Anion Gap 17 (6-14) Blood Urea Nitrogen 67 mg/dL (8-26) Creatinine 9.6 mg/dL (0.7-1.3) Estimated GFR (Cockcroft-Gault) 5.7 BUN/Creatinine Ratio 7 (6-20) Glucose Level 121 mg/dL (70-99) Calcium Level 7.7 mg/dL (8.5-10.1) Total Bilirubin 0.3 mg/dL (0.2-1.0) Aspartate Amino Transf (AST/SGOT) 36 U/L (15-37) Alanine Aminotransferase (ALT/SGPT) 9 U/L (16-63) Alkaline Phosphatase 106 U/L (46-116) Total Protein 6.0 g/dL (6.4-8.2) Albumin 1.3 g/dL (3.4-5.0) Albumin/Globulin Ratio 0.3 (1.0-1.7) Triglycerides Level 69 mg/dL (0-150) Cholesterol Level 163 mg/dL (0-200) LDL Cholesterol, Calculated 99 mg/dL (0-100) VLDL Cholesterol, Calculated 14 mg/dL (0-40) Non-HDL Cholesterol Calculated 113 mg/dL (0-129) HDL Cholesterol 50 mg/dL (40-60) Cholesterol/HDL Ratio 3.3 Test 08/08/19 09:06 08/08/19 10:31 08/08/19 11:33 08/08/19 16:36 Glucose (Fingerstick) 133 mg/dL (70-99) 226 mg/dL (70-99) 235 mg/dL (70-99) 491 mg/dL (70-99) Test 08/08/19 17:58 08/08/19 20:55 08/09/19 08:33 Glucose (Fingerstick) 409 mg/dL (70-99) 366 mg/dL (70-99) 348 mg/dL (70-99) Laboratory Tests Test 08/08/19 10:31 08/08/19 11:33 08/08/19 16:36 08/08/19 17:58 Glucose (Fingerstick) 226 mg/dL (70-99) 235 mg/dL (70-99) 491 mg/dL (70-99) 409 mg/dL (70-99) Test 08/08/19 20:55 08/09/19 08:33 Glucose (Fingerstick) 366 mg/dL (70-99) 348 mg/dL (70-99) Brief Hospital Course Mr. Easton is a 53 old ESRD on PD but has a clotted left AV fistula, he has had past admits for the clotted fistula but kept leaving [facility], this time he stayed and [facility] did balloon angioplasty after signif findings on arteriogram,. 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 and pt EDUCATED HIM TO TAKE HIS BP FIRST BEFORE TAKING HIS 3 BP MEDS AT HOME HE usually runs high, 150s systolic consults: [facility] Proc; BAlloon angioplasty Discharge Information Scheduled Amlodipine Besylate (Amlodipine Besylate) 10 Mg Tablet, 10 MG PO DAILY for htn, (Reported) Entered as Reported by: Guillermo Holliday on 10/13/18648 Last Action: Continued on 08/06/191422 by RICKIE GRAMAJO Aspirin (Aspirin Ec) 81 Mg Tablet., 81 MG PO DAILYWBKFT for PAD, #30 Prescribed by: RICKIE GRAMAJO on 08/09/19 1010 Atorvastatin Calcium (Atorvastatin Calcium) 40 Mg Tablet, 40 MG PO HS for FOR CHOLESTEROL, #30 Ref 0 (Reported) Entered as Reported by: Guillermo Holliday on 10/13/18648 Last Action: Continued on 08/06/191422 by RICKIE GRAMAJO Calcitriol (Calcitriol) 0.5 Mcg Capsule, 0.5 MCG PO DAILY for supplement, (Reported) Entered as Reported by: KEY TEIXEIRA on 08/06/191830 Last Action: Converted on 08/06/191904 by KEY TEIXEIRA Carvedilol (Carvedilol) 25 Mg Tablet, 25 MG PO BIDWMEALS for CARDIAC, (Reported) Entered as Reported by: Guillermo Holliday on 10/13/18648 Last Action: Converted on 08/06/191422 by RICKIE GRAMAJO Diazepam (Diazepam) 10 Mg Tablet, 10 MG PO HS for anxiety, (Reported) Entered as Reported by: JORGE BENSON on 08/06/192027 Last Taken: Unknown Dose on 08/05/19 Last Action: New Order on 08/06/192027 by JORGE BENSON Furosemide (Furosemide) 80 Mg Tablet, 80 MG PO BID for diuretic, (Reported) Entered as Reported by: KEY TEIXEIRA on 08/06/191830 Last Action: Continued on 08/06/191904 by KEY TEIXEIRA Gabapentin (Gabapentin) 600 Mg Tablet, 300 MG PO TID for NEUROGENIC PAIN, (Reported) Entered as Reported by: Guillermo Holliday on 10/13/18648 Last Action: Reviewed on 08/06/191830 by KEY TEIXEIRA Hydralazine Hcl (Hydralazine Hcl) 100 Mg Tablet, 1 TAB PO TID for htn, #90 Ref 5 (Reported) Entered as Reported by: Guillermo Holliday on 10/13/18648 Last Action: Reviewed on 08/06/191830 by KEY TEIXEIRA Insulin Glargine,Hum.rec.anlog (Lantus Solostar) 100 Unit/1 Ml Insuln.pen, 11 UNIT SQ QHS for dm, #15 Ref 3 (Reported) Entered as Reported by: Guillermo Holliday on 10/13/18648 Last Action: Reviewed on 08/06/191830 by KEY TEIXEIRA Insulin Lispro (Humalog) 100 Unit/1 Ml Cartridge, 22 UNIT SQ TIDWMEALS for dm, (Reported) Entered as Reported by: Guillermo Holliday on 10/13/18648 Last Action: Reviewed on 08/06/191830 by KEY TEIXEIRA Losartan Potassium (Cozaar) 100 Mg Tablet, 100 MG PO HS for HYPERTENSION, (Reported) Entered as Reported by: Guillermo Holliday on 10/13/18648 Last Action: Converted on 08/06/191422 by RICKIE GRAMAJO Omeprazole (Omeprazole) 20 Mg Tablet.dr, 20 MG PO DAILY for acid reflux, (Reported) Entered as Reported by: KEY TEIXEIRA on 08/06/191830 Last Action: Converted on 08/06/191904 by KEY TEIXEIRA Tamsulosin Hcl (Tamsulosin Hcl) 0.4 Mg Cap.er.24h, 1 CAP PO HS for urinary retentrion, #30 Ref 5 (Reported) Entered as Reported by: Guillermo Holliday on 10/13/18648 Last Action: Reviewed on 08/06/191830 by KEY TEIXEIRA Scheduled PRN Diazepam (Diazepam) 10 Mg Tablet, 20 PRN PRN for ANXIETY / AGITATION, (Reported) Entered as Reported by: LIZZ DAVENPORT RN on 08/03/19154 Last Action: Continued on 08/06/191422 by RICKIE GRAMAJO Glucagon,Human Recombinant (Glucagen) 1 Mg Vial, 1 PRN PRN for LOW BLOOD SUGAR, (Reported) Entered as Reported by: LIZZ DAVENPORT RN on 08/03/19154 Last Action: HELD on 08/06/191422 by RICKIE GRAMAJO Hydrocodone/Apap 5-325 (Fountain 5-325 Tablet) 1 Each Tablet, 1-2 EACH PO PRN Q6HRS PRN for PAIN, #10 as needed for pain Prescribed by: RICKIE GRAMAJO on 08/09/19 1010 Montelukast Sodium (Montelukast Sodium Tablet ) 10 Mg Tablet, 1 TAB PO HS PRN for ALLERGIES, #30 Ref 5 (Reported) Entered as Reported by: Guillermo Holliday on 10/13/18648 Last Action: Reviewed on 08/06/191830 by KEY TEIXEIRA Ondansetron (Ondansetron Odt) 4 Mg Tab.rapdis, 1 TAB PO PRN Q6-8HRS PRN for NAUSEA, #16 (Reported) Entered as Reported by: Guillermo Holliday on 10/13/18648 Last Action: Continued on 08/06/191422 by RICKIE GRAMAJO Discontinued Medications Diazepam (Diazepam) 10 Mg Tablet, 10 MG PO PRN Q12HR PRN for ANXIETY / AGITATION, (Reported) Entered as Reported by: Guillermo Holliday on 10/13/18648 Hydrocodone/Apap 5-325 (Fountain 5-325 Tablet) 1 Each Tablet, 1-2 TAB PO Q4-6HRS for pain, #30 (Reported) LAST DOSE GIVEN: 12/21/18 at 1500 so next dose at 7:00PM as needed for pain Entered as Reported by: DIRK BANDA on 12/21/181436 Last Action: Continued on 08/06/191422 by RICKIE GRAMAJO Hydrocodone/Apap 5-325 (Fountain 5-325 Tablet) 1 Each Tablet, 1 TAB PO PRN Q6HRS PRN for PAIN, Ref 0 (Reported) Entered as Reported by: DIRK BANDA on 12/21/181436 Last Action: HELD on 08/06/191422 by RICKIE MUÑIZ MD Aug 09, 2019 10:14
--- NOTE | 2019-08-09 10:15 | PDOC ---
Provider Note Provider Note S: Patient seen in examination room. Patient continues to complain of mild left hand pain and limited function. O:Awake alertX3 Heart rate regular Unable to appreciate radial or ulnar pulses bilaterally. Left upper arm arteriovenous fistula with bruit and thrill. Left first and fifth finger pad discoloration, thumb with dry eschar. Hand is warm. Motor function weak strength 3/5. Sensation intact. A/P: 53-year-old male with severe atherosclerotic disease of the left upper extremity with hand ischemia and steal syndrome. Angioplasty performed of the brachial artery. Patient has had some improvement in the pain and discoloration of digits. He reports this is stable and no change in the last few days. -Recommend follow up in one week with arterial ultrasound with compression maneuvers to see if there is improvement following angioplasty. Discussed plan of care with Dr. White. Discussed plan of care with Dr. Javed, if patient can continue to be successful with peritoneal dialysis then potentially could ligate the arteriovenous fistula if it continues to cause hand ischemia. If the patient needs to continue hemodialysis he may benefit from a DRIL procedure. -Recommend patient wear a glove or mitten at all times. -Continue statin and antiplatelet therapy. -Discussed tobacco use with patient, he understands that he needs to quit, he states he is now willing to quit. Currently he is on a nicotine patch. He states he thinks cold turkey is the best method and will continue to not smoke upon discharge. LUIS MCFARLAND APRN Aug 09, 2019 10:15
[2019-08-09] MEDS ORDERED: INSULIN GLARGINE SYRINGE. SQ SCH (21:00)
== END 2019-08-09 10:40 | disposition home or self-care (01) | DRG 252 ==
LOC: ER 12:06 → 5 SOUTH 14:30 → 1 WEST ICU 08-07 20:21
PROVIDERS: ADMIT Internal Medicine; ATTEND Internal Medicine
PROC: 03783ZZ Dilation of Left Brachial Artery, Percutaneous Approach (ICD-10-PCS; principal; 2019-08-07)
PROC: B31J1ZZ Fluoroscopy of Left Upper Extremity Arteries using Low Osmolar Contrast (ICD-10-PCS; 2019-08-07)
DX: T82.510A Breakdown (mechanical) of surgically created arteriovenous fistula, initial encounter (principal); N18.6 End stage renal disease; I13.2 Hypertensive heart and chronic kidney disease with heart failure and with stage 5 chronic kidney disease, or end stage renal disease; I50.32 Chronic diastolic (congestive) heart failure; D63.8 Anemia in other chronic diseases classified elsewhere; E10.22 Type 1 diabetes mellitus with diabetic chronic kidney disease; E10.51 Type 1 diabetes mellitus with diabetic peripheral angiopathy without gangrene; E10.649 Type 1 diabetes mellitus with hypoglycemia without coma; E78.5 Hyperlipidemia, unspecified; F17.210 Nicotine dependence, cigarettes, uncomplicated; I25.10 Atherosclerotic heart disease of native coronary artery without angina pectoris; I70.208 Unspecified atherosclerosis of native arteries of extremities, other extremity; J44.9 Chronic obstructive pulmonary disease, unspecified; Y71.2 Prosthetic and other implants, materials and accessory cardiovascular devices associated with adverse incidents; Z80.1 Family history of malignant neoplasm of trachea, bronchus and lung; Z86.73 Personal history of transient ischemic attack (TIA), and cerebral infarction without residual deficits; Z96.659 Presence of unspecified artificial knee joint; Z99.2 Dependence on renal dialysis; Z79.4 Long term (current) use of insulin; D64.9 Anemia, unspecified; E21.3 Hyperparathyroidism, unspecified; M19.90 Unspecified osteoarthritis, unspecified site; I95.9 Hypotension, unspecified; Z88.8 Allergy status to other drugs, medicaments and biological substances
CPT/HCPCS: 36415; 37246; 71045; 75710; 76937; 80048; 80053; 80061; 82962; 85025; 85027; 85610; 85730; 87040; 87086; 93306; 99152; 99153; C1713; C1758; C1760; C1769; C1892; C1894; G0269; J1265; J1644; J1815; J2250; J2405; J3010; J3490; J7030; J7040; J7042; Q9967; 99285-25; G0378

== ENCOUNTER 2019-08-27 10:48 | Day surgery (SDC) | payer MEDICARE ==
[~2019-08-27 10:48] MED LIST changes: +ASPI-612 PO; +BACITRACIN 50,000 UNIT in IV NORMAL SALINE 500ML BAG 500 ML IRR ONE; +CALC0.5C8 PO; +HYDROmorphone 2 MG/ML VIAL IV PRN; +IV RINGERS,LACTATED 1000ML 1,000 ML IV SCH; +LIDOCAINE 1% PF 2 ML VIAL. ID PRN; +MORPHINE SULFATE 2 MG/ML VIAL. IV PRN; +OMEP20TA8 PO; +ONDANSETRON PF 4 MG/2 ML VIAL. IV PRN; +PROCHLORPERAZINE 10 MG/2 ML VIAL. IV PRN; +fentaNYL PF VIAL 100 MCG/2 ML VIAL IV PRN
[2019-08-27] MEDS ORDERED: LIDOCAINE 1% PF 5 ML VIAL. ONE (10:59)
[2019-08-27] MEDS ORDERED: DEXAMETHASONE SOD PHOS 4 MG/ML VIAL ONE (10:59)
[2019-08-27] MEDS ORDERED: fentaNYL PF VIAL 100 MCG/2 ML VIAL ONE (10:59)
[2019-08-27] MEDS ORDERED: PROPOFOL 20 ML IV ONE ×2 (10:59→13:19)
[2019-08-27] MEDS ORDERED: ONDANSETRON PF 4 MG/2 ML VIAL. ONE (10:59)
[2019-08-27] MEDS ORDERED: MIDAZOLAM HCL/PF 2 MG/2 ML VIAL. ONE (11:01)
[2019-08-27] MEDS: IV NORMAL SALINE 1000ML BAG 1,000 ML IV SCH (11:46)
[2019-08-27] MEDS: INSULIN LISPRO 100 UNIT/ML 3ML VIAL for OP,RR ONLY. SQ PRN (11:48)
[2019-08-27] MEDS ORDERED: POVIDONE-IODINE 10% TOPICAL OINTMENT 28GM TUBE. TP ONE (11:59)
[2019-08-27] MEDS ORDERED: PAPAVERINE 60 MG/2 ML VIAL FOR OR ONLY. ONE (11:59)
[2019-08-27] MEDS ORDERED: THROMBIN TOPICAL 5,000 UNIT VIAL. ONE (11:59)
[2019-08-27] MEDS ORDERED: PROTAMINE 50 MG/5 ML VIAL. IV ONE (11:59)
[2019-08-27] MEDS ORDERED: INSULIN LISPRO 100 UNIT/ML 3ML VIAL for OP,RR ONLY. SQ PRN (12:45)
[2019-08-27 13:21] LABS: BASO # 0.1 x10^3/uL (0.0-0.2); BASO % 1 % (0-3); EOS # 0.2 x10^3/uL (0.0-0.7); EOS % 2 % (0-3); HEMATOCRIT 30.8 % (39.0-53.0); HEMOGLOBIN 9.6 g/dL (13.0-17.5); LYMPH # 0.7 x10^3/uL (1.0-4.8); LYMPH % 5 % (24-48); MEAN CORPUSCULAR HEMOGLOBIN 30 pg (25-35); MEAN CORPUSCULAR HGB CONC 31 g/dL (31-37); MEAN CORPUSCULAR VOLUME 97 fL (79-100); MONO # 0.9 x10^3/uL (0.0-1.1); MONO % 7 % (0-9); NEUT # 11.1 x10^3/uL (1.8-7.7); NEUT % 85 % (31-73); PLATELET COUNT 461 x10^3/uL (140-400); RED BLOOD COUNT 3.19 x10^6/uL (4.30-5.70); RED CELL DISTRIBUTION WIDTH 17.1 % (11.5-14.5); WHITE BLOOD COUNT 13.1 x10^3/uL (4.0-11.0)
[2019-08-27 13:21] LABS: CREATININE 9.1 mg/dL (0.7-1.3); GFR 6.1; POTASSIUM 4.5 mmol/L (3.5-5.1)
[2019-08-27] MEDS ORDERED: PHENYLEPHRINE in 0.9% NACL PF 1 MG/10 ML SYRINGE. IV ONE (13:22)
[2019-08-27] MEDS: LIDOCAINE 1% PF 30 ML VIAL. ONE (13:26)
--- NOTE | 2019-08-27 13:35 | DISCH ---
DISCHARGE INSTRUCTIONS Condition on Discharge Condition on Discharge: Stable Activity After Discharge Activity Instructions for Disc: Activity as tolerated Other activity instructions: elevate operative arm on pillows Wound Incision Care Wound Care Equipment: Dressings (remove in 48 hours, keep steristrips in place, may shower) Contacting the after DC Call your doctor for: If your condition worsens Follow-Up Follow up with: Dr. White 09/25/2019 1:30 LUIS MCFARLAND APRN Aug 27, 2019 13:35
--- NOTE | 2019-08-27 14:08 | PDOC ---
BRIEF OPERATIVE NOTE Date: Aug 27, 2019 Pre-Op Diagnosis ESRD, vascular steal left hand Post-Op Diagnosis same Procedure Performed Left arteriovenous fistula ligation Surgeon Dr. White Hub Borer Luis Mcfarland NP Anesthesia Type: MAC, Local Blood Loss minimal Specimens Obtained none Findings biphasic doppler radial and ulnar artery post ligation Complications none Operative Note see dictated note LUIS MCFARLAND DRIVERS' CASH CLERK Aug 27, 2019 14:08
--- NOTE | 2019-08-27 14:22 | OP ---
DATE OF SURGERY: 08/27/2019 PREOPERATIVE DIAGNOSES: 1. History of end-stage renal disease with left brachiocephalic arteriovenous fistula. 2. Vascular steal, left hand. POSTOPERATIVE DIAGNOSES: 1. History of end-stage renal disease with left brachiocephalic arteriovenous fistula. 2. Vascular steal, left hand. OPERATION PERFORMED: Ligation of left brachiocephalic arteriovenous fistula. SURGEON: Justin White MD ENERGY TRADING ANALYST: ROBYN Sharpe ANESTHESIA: Monitored sedation with local anesthetic. INDICATIONS: This is a 53-year-old gentleman who has end-stage renal disease. He has a functioning peritoneal dialysis catheter. He has a brachiocephalic arteriovenous fistula, which he has had for some time, which is not being used because of peritoneal dialysis. He has developed duskiness and pain in his fingertips. He was seen in the office recently and there was significant augmentation of arterial signal following compression of the fistula. Therefore, he is a candidate for ligation of the fistula. The operation, risks, and benefits were explained to both he and his . They understood and wished to proceed. DESCRIPTION OF PROCEDURE: The left forearm was prepped and draped in the usual manner. A timeout was called and the correct patient, the correct operation and the correct operative site were all verified. After infiltration with 1% lidocaine, a transverse incision was made over the prior scar just below the elbow crease. The cephalic vein was dissected proximally and distally as well as the communicating branch, which was anastomosed to the brachial artery. A 2-0 silk ligature was placed around the deep communicating branch, successfully ligating both the distal and proximal venous outflow. Following ligation, flow was checked with the arterial dopplerable. Both the radial and ulnar artery signals were present and augmented. The wound was then irrigated and closed in 2 layers with absorbable sutures and Steri-Strips were applied. The patient was taken to the recovery room in satisfactory condition. All sponge and needle counts were reported as correct. The nurse practitioner was required for assistance with exposure as there was no technical assistance available provided by the hospital staff. JUSTIN WHITE MD DR: LO/ruel JOB#: [id number] / [id number]
[2019-08-27 15:25] VITALS: BP 124/65
== END 2019-08-27 15:40 | disposition home or self-care (01) ==
LOC: SURG 10:48
PROVIDERS: ATTEND Surgery
DX: T82.898A Other specified complication of vascular prosthetic devices, implants and grafts, initial encounter (principal); E11.22 Type 2 diabetes mellitus with diabetic chronic kidney disease; I12.0 Hypertensive chronic kidney disease with stage 5 chronic kidney disease or end stage renal disease; N18.6 End stage renal disease; E78.00 Pure hypercholesterolemia, unspecified; Z82.49 Family history of ischemic heart disease and other diseases of the circulatory system; Z86.73 Personal history of transient ischemic attack (TIA), and cerebral infarction without residual deficits; Z72.0 Tobacco use; Z88.8 Allergy status to other drugs, medicaments and biological substances; Z79.82 Long term (current) use of aspirin; Z79.899 Other long term (current) drug therapy; Z79.4 Long term (current) use of insulin; Z98.890 Other specified postprocedural states; Y83.8 Other surgical procedures as the cause of abnormal reaction of the patient, or of later complication, without mention of misadventure at the time of the procedure; Y92.89 Other specified places as the place of occurrence of the external cause
CPT/HCPCS: 36415; 37607; 80048; 82962; 85025; A7015; J0690; J0696; J2370; J2704; J3010; J3490; J7040; J1100; J2250; J2405; J2440

== ENCOUNTER 2019-09-18 13:37 | Inpatient (IN) | payer MEDICARE ==
[~2019-09-18] VITALS: Ht 172.7 cm; Wt 72.1 kg
[~2019-09-18 13:37] MED LIST changes: +AMOX1TAB10 PO; -BACITRACIN 50,000 UNIT in IV NORMAL SALINE 500ML BAG 500 ML IRR ONE; +DOXY100T PO; +Fluconazole PO; -HYDROmorphone 2 MG/ML VIAL IV PRN; -IV RINGERS,LACTATED 1000ML 1,000 ML IV SCH; +LACT1CAP19 PO; -LIDOCAINE 1% PF 2 ML VIAL. ID PRN; -MORPHINE SULFATE 2 MG/ML VIAL. IV PRN; -ONDANSETRON PF 4 MG/2 ML VIAL. IV PRN; -PROCHLORPERAZINE 10 MG/2 ML VIAL. IV PRN; +TRAM50TA PO; -fentaNYL PF VIAL 100 MCG/2 ML VIAL IV PRN
[2019-09-18] MEDS ORDERED: DEXTROSE 50% 25 GM / 50ML DISP.SYRIN. IV ONE ×3 (14:00→17:30)
--- NOTE | 2019-09-18 14:04 | PHYS DOC ---
Past Medical History Past Medical History: COPD, CVA, Diabetes-Type I, Hypertension, [place], Renal Failure, Other Additional Past Medical Histor: Peritoneal Dialysis Past Medical History Limited secondary to patient's altered mental status Past Surgical History: Other Additional Past Surgical Histo: LEFT FA AV SHUNT, bilateral foot reconstruction, Peritoneal dialysis cath Past Surgical History Limited secondary to patient's altered mental status Smokin Pack Per Day Alcohol Use: Sober Drug Use: None Social History Limited secondary to patient's altered mental status Adult General Chief Complaint Chief Complaint: HYPOGLYCEMIA HPI HPI Patient is a 53-year-old male with past medical history of hypertension, CVA, type 1 diabetes, kidney disease on peritoneal dialysis that is presenting to the emergency department via EMS with hypoglycemia. EMS report states that last night the patient took a shot of glucagon followed by a shot of "long acting" insulin followed by a shot of glucagon followed by another shot of "long acting" insulin. Significant other reports he was very confused at that time and she was concerned it might be secondary to his hydrocodone use. In in this morning. EMS responded to a call by patient's family members that he was acting "funny". Upon EMS arrival, blood sugars were undetectable. EMS was unable to get IV access so they obtained an IO to right tibia and gave the patient D5. The patient became alert and oriented after that with repeat blood sugar of 70. On exam in the emergency room the patient is AO 4 with a blood sugar of 55. Patient denies any other complaints at this time, denies chest pain, shortness of breath, fevers, chills, abdominal pain, constipation, diarrhea, dysuria, increased frequency, and headache. History of present illness limited secondary to patient's altered mental status Review of Systems Review of Systems Constitutional: Denies fever or chills Eyes: Denies redness or eye pain HENT: Denies nasal congestion or sore throat Respiratory: Denies cough or shortness of breath Cardiovascular: Denies chest pain or palpitations GI: Denies abdominal pain, nausea, or vomiting : Denies dysuria or hematuria Musculoskeletal: Denies back pain or joint pain Integument: Denies rash or skin lesions Neurologic: Denies headache, focal weakness or sensory changes Complete systems were reviewed and found to be within normal limits, except as documented in this note. Current Medications Current Medications Current Medications Medications (Trade) Dose Ordered Sig/Rosalino Start Time Stop Time Status Last Admin Dose Admin Acetaminophen (Tylenol) 650 mg PRN Q4HRS PRN 09/18/19 15:45 09/19/19 15:44 Acetaminophen/ Hydrocodone Bitart (Lortab 5/325) 1 tab PRN Q4HRS PRN 09/18/19 15:45 UNV Amlodipine Besylate (Norvasc) 10 mg DAILY 09/19/19 09:00 UNV Aspirin (Ecotrin) 81 mg DAILYWBKFT 09/19/19 08:00 UNV Atorvastatin Calcium (Lipitor) 40 mg HS 09/18/19 21:00 UNV Calcium Carbonate/ Glycine (Tums) 500 mg PRN AFTMEALHC PRN 09/18/19 15:45 UNV Ceftriaxone Sodium (Rocephin) 1 gm Q24H 09/18/19 15:45 UNV Dextrose (Dextrose 50%-Water Syringe) 25 gm 1X ONCE 09/18/19 15:45 09/18/19 16:11 DC 09/18/19 15:50 25 GM Dextrose (Iv Dextrose 5%) 250 ml PRN Q15MIN PRN 09/18/19 15:45 UNV Furosemide (Lasix) 80 mg BID 09/18/19 21:00 UNV Insulin Human Lispro (HumaLOG) 0-7 UNITS TIDWMEALS 09/18/19 17:00 UNV Lactobacillus Rhamnosus (Culturelle) 1 cap BID 09/18/19 21:00 UNV Montelukast Sodium (Singulair) 10 mg HS PRN 09/18/19 15:45 UNV Non-Formulary Medication (Calcitriol ) 0.5 mcg DAILY 09/19/19 09:00 UNV Non-Formulary Medication (Carvedilol ) 25 mg BIDWMEALS 09/18/19 17:00 UNV Non-Formulary Medication (Glucagon,Human Recombinant (Glucagen)) 1 % PRN PRN 09/18/19 15:45 UNV Non-Formulary Medication (Insulin Glargine,Hum.rec.anlog (Lantus Solostar)) 11 unit QHS 09/18/19 21:00 UNV Non-Formulary Medication (Insulin Lispro (Humalog)) 22 unit TIDWMEALS 09/18/19 17:00 UNV Non-Formulary Medication (Losartan Potassium (Cozaar)) 100 mg HS 09/18/19 21:00 UNV Non-Formulary Medication (Omeprazole ) 20 mg DAILY 09/19/19 09:00 UNV Non-Formulary Medication ([Fluconazole] ) 100 mg DAILY 09/19/19 09:00 UNV Ondansetron HCl (Zofran Odt) 4 mg QID PRN 09/18/19 15:45 UNV Ondansetron HCl (Zofran) 4 mg PRN Q8HRS PRN 09/18/19 15:45 09/19/19 15:44 Pantoprazole Sodium (PROTONIX VIAL for IV PUSH) 80 mg 1X ONCE 09/18/19 15:45 09/18/19 15:46 Cancel Pantoprazole Sodium 80 mg/ Sodium Chloride 100 ml @ 10 mls/hr Q10H 09/18/19 15:45 Cancel Piperacillin Sod/ Tazobactam Sod 3.375 gm/Sodium Chloride 50 ml @ 100 mls/hr 1X ONCE 09/18/19 15:30 09/18/19 15:59 DC 09/18/19 15:52 100 MLS/HR Tamsulosin HCl (Flomax) 0.4 mg HS 09/18/19 21:00 UNV Temazepam (Restoril) 7.5 mg PRN QHS PRN 09/18/19 15:45 UNV Tramadol HCl (Ultram) 50 mg PRN Q6HRS PRN 09/18/19 15:45 UNV Vancomycin HCl (Vanco Per Pharmacy) 1 each PRN DAILY PRN 09/18/19 15:30 UNV Vancomycin HCl 1.75 gm/Sodium Chloride 500 ml @ 250 mls/hr 1X ONCE 09/18/19 15:45 09/18/19 17:44 Allergies Allergies Allergies Coded Allergies Type Severity Reaction Last Updated Verified lamotrigine Allergy Severe HIVES, SHORTNESS OF BREATH 08/27/19 Yes Physical Exam Physical Exam Constitutional: Well developed, well nourished, no acute distress, somnolence, ill appearance HENT: Normocephalic, atraumatic, oropharynx moist Eyes: Conjunctiva normal, no discharge Neck: Normal range of motion, no tenderness, supple Cardiovascular: Heart rate normal, regular rhythm Lungs & Thorax: Bilateral breath sounds clear to auscultation, no wheezing Abdomen: Soft, no tenderness, peritoneal dialysis catheter present : Right anterior distal penis with significant erythema and small area of eschar no active exudate appreciated Skin: Warm, dry, no erythema, jaundice appearance Back: No tenderness, no CVA tenderness Extremities: No tenderness, ROM intact, edema to the UE and LE Neurologic: Alert and oriented X 3, somnolent but arousable to voice, no focal deficits noted Psychologic: Affect sleepy, judgement abnormal Current Patient Data Vital Signs Vital Signs Date Time Temp Pulse Resp B/P (MAP) Pulse Ox O2 Delivery O2 Flow Rate FiO2 09/18/19 15:01 76 16 105/60 (75) 98 Nasal Cannula 2.0 09/18/19 13:46 96.7 96.7 Lab Values Laboratory Tests Test 09/18/19 13:46 09/18/19 13:55 09/18/19 14:24 09/18/19 15:30 Glucose (Fingerstick) 54 mg/dL (70-99) L 101 mg/dL (70-99) H White Blood Count 18.6 x10^3/uL (4.0-11.0) H Red Blood Count 3.45 x10^6/uL (4.30-5.70) L Hemoglobin 10.3 g/dL (13.0-17.5) L Hematocrit 32.5 % (39.0-53.0) L Mean Corpuscular Volume 94 fL (79-100) Mean Corpuscular Hemoglobin 30 pg (25-35) Mean Corpuscular Hemoglobin Concent 32 g/dL (31-37) Red Cell Distribution Width 18.6 % (11.5-14.5) H Platelet Count 330 x10^3/uL (140-400) Neutrophils (%) (Auto) 92 % (31-73) H Lymphocytes (%) (Auto) 2 % (24-48) L Monocytes (%) (Auto) 5 % (0-9) Eosinophils (%) (Auto) 0 % (0-3) Basophils (%) (Auto) 1 % (0-3) Neutrophils # (Auto) 17.1 x10^3/uL (1.8-7.7) H Lymphocytes # (Auto) 0.3 x10^3/uL (1.0-4.8) L Monocytes # (Auto) 1.0 x10^3/uL (0.0-1.1) Eosinophils # (Auto) 0.0 x10^3/uL (0.0-0.7) Basophils # (Auto) 0.1 x10^3/uL (0.0-0.2) Sodium Level 134 mmol/L (136-145) L Potassium Level 3.6 mmol/L (3.5-5.1) Chloride Level 94 mmol/L (98-107) L Carbon Dioxide Level 27 mmol/L (21-32) Anion Gap 13 (6-14) Blood Urea Nitrogen 69 mg/dL (8-26) H Creatinine 7.8 mg/dL (0.7-1.3) H Estimated GFR (Cockcroft-Gault) 7.3 BUN/Creatinine Ratio 9 (6-20) Glucose Level 65 mg/dL (70-99) L Lactic Acid Level 1.2 mmol/L (0.4-2.0) Calcium Level 7.8 mg/dL (8.5-10.1) L Magnesium Level 1.6 mg/dL (1.8-2.4) L Total Bilirubin 0.3 mg/dL (0.2-1.0) Aspartate Amino Transferase (AST) 22 U/L (15-37) Alanine Aminotransferase (ALT) 8 U/L (16-63) L Alkaline Phosphatase 123 U/L (46-116) H Creatine Kinase 195 U/L (39-308) Creatine Kinase MB (Mass) 4.6 ng/mL (0.0-3.6) H Creatine Kinase MB Relative Index 2.4 % (0-4) Troponin I Quantitative 0.039 ng/mL (0.000-0.055) Total Protein 4.8 g/dL (6.4-8.2) L Albumin 1.2 g/dL (3.4-5.0) L Albumin/Globulin Ratio 0.3 (1.0-1.7) L Ammonia < 10 mcmol/L (11-34) L Test 09/18/19 15:41 Glucose (Fingerstick) 50 mg/dL (70-99) L Laboratory Tests 09/18/19 13:55 Laboratory Tests 09/18/19 13:55 EKG EKG EKG at 1348 shows sinus rhythm at 80 bpm, no ST elevation Radiology/Procedures Radiology/Procedures PROCEDURE: PORTABLE CHEST 1V Single AP view of the chest. Comparison: 09/09/2019. Indication: Cough and hypoglycemia Findings: The heart is enlarged but stable. There is no pneumothorax or effusion. No air space or interstitial disease. Impression: 1. No acute cardiopulmonary process. Electronically signed by: Nathaniel Clifton MD (09/18/2019 2:10 PM) [facility] Course & Med Decision Making Course & Med Decision Making Pertinent Labs and Imaging studies reviewed. (See chart for details) Patient is a 53-year-old male with past medical history of hypertension, diabetes, chronic kidney disease, CVA that is presenting to the emergency department via EMS for hypoglycemia. Patient was seen and examined at bedside. Physical exam was significant for A/O 4, somnolent but arousable to voice, normal cardiovascular exam. Point of care glucose at 52 in the emergency department. Labs, imaging, and fluids ordered. EKG at 1348 shows sinus rhythm at 80 bpm, no ST elevation. CXR without acute process. Patient has history of penile cellulitis for which he had been admitted to the hospital and had been diagnosed with bacteremia, he is currently taking Augmentin, doxycycline, Diflucan, labs here significant for leukocytosis blood cultures have been drawn, uncertain as to the source of leukocytosis for this episode. Broad spectrum antibiotics started in the emergency department. Patient will be admitted for further evaluation of leukocytosis and hypoglycemia. Patient requiring admission for further evaluation and treatment. Discussed with Dr. Burton (hospitalist) who is in agreement with admission. Discussed findings and plan with patient and family, who acknowledge understanding and agreement. Dragon Disclaimer Dragon Disclaimer This electronic medical record was generated, in whole or in part, using a voice recognition dictation system. Departure Departure Impression: Primary Impression: Hypoglycemia Additional Impressions: Leukocytosis Hypomagnesemia Hypocalcemia Penile cellulitis Disposition: ADMITTED INPATIENT Admitting Physician: JOSE Corea) Condition: STABLE Referrals: LUIS MANUEL MCBRIDE MD (PCP) Problem Qualifiers Additional Impressions: Leukocytosis Leukocytosis type: unspecified Qualified Codes: D72.829 - Elevated white blood cell count, unspecified ANGEL LUIS LAIRD DO Sep 18, 2019 14:04
[2019-09-18 14:08] LABS: BASO # 0.1 x10^3/uL (0.0-0.2); BASO % 1 % (0-3); EOS % 0 % (0-3); HEMATOCRIT 32.5 % (39.0-53.0); HEMOGLOBIN 10.3 g/dL (13.0-17.5); LYMPH # 0.3 x10^3/uL (1.0-4.8); LYMPH % 2 % (24-48); MEAN CORPUSCULAR HEMOGLOBIN 30 pg (25-35); MEAN CORPUSCULAR HGB CONC 32 g/dL (31-37); MEAN CORPUSCULAR VOLUME 94 fL (79-100); MONO % 5 % (0-9); NEUT # 17.1 x10^3/uL (1.8-7.7); NEUT % 92 % (31-73); PLATELET COUNT 330 x10^3/uL (140-400); RED BLOOD COUNT 3.45 x10^6/uL (4.30-5.70); RED CELL DISTRIBUTION WIDTH 18.6 % (11.5-14.5); WHITE BLOOD COUNT 18.6 x10^3/uL (4.0-11.0)
--- NOTE | 2019-09-18 14:12 | RAD ---
Single AP view of the chest. Comparison: 09/09/2019. Indication: Cough and hypoglycemia Findings: The heart is enlarged but stable. There is no pneumothorax or effusion. No air space or interstitial disease. Impression: 1. No acute cardiopulmonary process. Electronically signed by: Nathaniel Clifton MD (09/18/2019 2:10 PM) [facility]
[2019-09-18 14:15] LABS: CALCIUM 7.8 mg/dL (8.5-10.1); CREATININE 7.8 mg/dL (0.7-1.3); GFR 7.3; POTASSIUM 3.6 mmol/L (3.5-5.1)
[2019-09-18 14:29] LABS: ALBUMIN 1.2 g/dL (3.4-5.0); ALBUMIN/GLOBULIN RATIO 0.3 (1.0-1.7); MAGNESIUM 1.6 mg/dL (1.8-2.4); TOTAL BILIRUBIN 0.3 mg/dL (0.2-1.0); TOTAL PROTEIN 4.8 g/dL (6.4-8.2)
--- NOTE | 2019-09-18 14:48 | EKG ---
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
[2019-09-18] MEDS ORDERED: PIPERACILLIN/TAZOBACTAM 3.375 GM in IV NORMAL SALINE 50ML 50 ML IV ONE (15:30)
[2019-09-18] MEDS ORDERED: IV DEXTROSE 5% 250 ML BAG. IV PRN ×2 (15:45)
[2019-09-18] MEDS ORDERED: DEXTROSE 50% 25 GM / 50ML DISP.SYRIN. IV PRN ×2 (15:45)
[2019-09-18] MEDS ORDERED: ACETAMINOPHEN 325 MG TABLET. PO PRN (15:45)
[2019-09-18] MEDS ORDERED: HYDROcodone/APAP 5/325MG 1 TAB TABLET PO PRN (15:45)
[2019-09-18] MEDS ORDERED: GLUCAGON PRN (15:45)
[2019-09-18] MEDS ORDERED: ONDANSETRON PF 4 MG/2 ML VIAL. IV PRN (15:45)
[2019-09-18] MEDS ORDERED: CALCIUM CARBONATE 500 MG TAB.CHEW PO PRN (15:45)
[2019-09-18] MEDS ORDERED: ONDANSETRON ODT 4 MG TAB.RAPDIS. PO PRN (15:45)
[2019-09-18] MEDS ORDERED: VANCOMYCIN 1.75 GM in IV NORMAL SALINE 500ML BAG 500 ML IV ONE (15:45)
[2019-09-18] MEDS ORDERED: [UNRECOGNIZED DRUG - OTHER] PRN (15:45)
[2019-09-18] MEDS ORDERED: PANTOPRAZOLE SODIUM IV DRIP 80 MG in IV NORMAL SALINE 100ML 100 ML IV SCH (15:45)
[2019-09-18] MEDS ORDERED: MONTELUKAST SODIUM 10 MG TABLET. PO PRN (15:45)
[2019-09-18] MEDS ORDERED: PANTOPRAZOLE IV PUSH 40 MG VIAL. IVP ONE (15:45)
[2019-09-18] MEDS ORDERED: INSULIN LISPRO 300 UNITS/3 ML VIAL. SQ SCH (17:00)
[2019-09-18 18:17] VITALS: BP 114/45
[2019-09-18] MEDS: INSULIN GLARGINE SYRINGE. SQ SCH (21:00)
[2019-09-18] MEDS: LOSARTAN POTASSIUM 50 MG TABLET. PO SCH (21:00)
[2019-09-18] MEDS: ATORVASTATIN CALCIUM 40 MG TABLET. PO SCH (21:39)
[2019-09-18] MEDS: TAMSULOSIN 0.4 MG CAP.ER.24H. PO SCH (21:39)
[2019-09-18] MEDS: LACTOBACILLUS RHAMNOSUS GG 1 CAPSULE. PO SCH (21:40)
[2019-09-18] MEDS: TEMAZEPAM 7.5 MG CAPSULE PO PRN (21:41)
[2019-09-18 23:07] VITALS: BP 116/67
[2019-09-19 03:26] VITALS: BP 99/87
[2019-09-19 05:12] LABS: BASO # 0.1 x10^3/uL (0.0-0.2); BASO % 0 % (0-3); EOS % 0 % (0-3); HEMATOCRIT 31.9 % (39.0-53.0); HEMOGLOBIN 10.1 g/dL (13.0-17.5); LYMPH # 0.7 x10^3/uL (1.0-4.8); LYMPH % 5 % (24-48); MEAN CORPUSCULAR HEMOGLOBIN 30 pg (25-35); MEAN CORPUSCULAR HGB CONC 32 g/dL (31-37); MEAN CORPUSCULAR VOLUME 94 fL (79-100); MONO % 7 % (0-9); NEUT % 88 % (31-73); PLATELET COUNT 326 x10^3/uL (140-400); RED BLOOD COUNT 3.38 x10^6/uL (4.30-5.70); RED CELL DISTRIBUTION WIDTH 18.3 % (11.5-14.5); WHITE BLOOD COUNT 15.9 x10^3/uL (4.0-11.0)
[2019-09-19 05:41] LABS: ALBUMIN 1.2 g/dL (3.4-5.0); CALCIUM 8.3 mg/dL (8.5-10.1); CREATININE 7.8 mg/dL (0.7-1.3); GFR 7.3; POTASSIUM 3.6 mmol/L (3.5-5.1)
[2019-09-19 05:45] LABS: PHOSPHORUS 9.2 mg/dL (2.6-4.7)
[2019-09-19 07:00] VITALS: BP 147/52
[2019-09-19] MEDS: INSULIN LISPRO 300 UNITS/3 ML VIAL. SQ SCH ×7 (08:00→17:09)
--- NOTE | 2019-09-19 09:38 | NUR ---
Discussed pt.'s refusing admission during the HS with Dr. Alba. Also discussed left lower leg being slightly swollen, and foot slightly cool. I also had held insulin (notified his student of this while he was off of the unit) unless he would like for me to give it, as pt. was admitted with hypoglycemia. Current glucose is 105. Will continue to monitor.
[2019-09-19] MEDS: PANTOPRAZOLE 40 MG TABLET.DR. PO SCH (09:42)
[2019-09-19] MEDS: amLODIPine BESYLATE 10 MG TABLET PO SCH (09:42)
[2019-09-19] MEDS: FLUCONAZOLE 100 MG TABLET. PO SCH (09:42)
[2019-09-19] MEDS: LACTOBACILLUS RHAMNOSUS GG 1 CAPSULE. PO SCH ×2 (09:43→21:49)
[2019-09-19] MEDS: FUROSEMIDE 80 MG TABLET. PO SCH ×2 (09:43→14:41)
[2019-09-19] MEDS: CALCITRIOL 0.25 MCG CAPSULE. PO SCH (09:43)
[2019-09-19] MEDS: CARVEDILOL 12.5 MG TABLET. PO SCH ×2 (09:43→17:15)
[2019-09-19] MEDS: ATORVASTATIN CALCIUM 40 MG TABLET. PO SCH ×2 (09:44→21:49)
[2019-09-19] MEDS: cefTRIAXone IV Push 1 GM VIAL. IVP SCH (09:47)
[2019-09-19] MEDS: ASPIRIN ENTERIC COATED 81 MG TABLET.DR. PO SCH (10:19)
[2019-09-19 11:00] VITALS: BP 101/54
[2019-09-19 11:19] LABS: % BANDS 2 % (0-9); % EOS 2 % (0-5); % LYMPHS 2 % (24-48); % MONOS 2 % (0-10); % SEGS 92 % (35-66); PLT ESTIMATE ADEQUATE (ADEQUATE)
--- NOTE | 2019-09-19 12:01 | PDOC ---
Infectious Disease Note Subjective: Subjective Pt well known to us from recent admission 53 yo male developed mental status change last night and so the family called 911.Upon EMS arrival, blood sugars were undetectable. EMS gave the patient D5. Pt regained his conciousness with repeat BS of 70. Pt continues to have swelling of his penile area, balanitis was treated last admission with broad spectrum antibiotics. He had u/s of scrotum done ,neg for abscess. Per the penile swelling is slightly worse so ID reconsulted He is currently on ceftriaxone BC + staph epidermidis,likely contaminant. repeat bc neg Today , patient denies any other complaints . He denies chest pain, shortness of breath, fevers, chills, abdominal pain, constipation, diarrhea, dysuria, increased frequency, rash and headache. He is eager for dc home today Vital Signs: Vital Signs Vital Signs Date Time Temp Pulse Resp B/P (MAP) Pulse Ox O2 Delivery O2 Flow Rate FiO2 09/19/19 09:43 94 147/52 09/19/19 07:00 98.7 18 94 Nasal Cannula 2.0 98.7 Physical Exam: PHYSICAL EXAM GENERAL: alert awake male in [facility] HEENT: Normocephalic, atraumatic, anicteric. No thrush. NECK: No tenderness. Supple, no JVD, no lymphadenopathy. LUNGS: Clear. HEART: S1, S2. ABDOMEN: Soft. PD catheter in place, nontender, nondistended. GENITOURINARY: Penile swelling, redness.unchanged from last admission, not worsening, No purulence noted EXTREMITIES: 1-2+ pedal edema. SKIN: Dry skin. No cyanosis. NEUROLOGIC: nonfocal grossly PSYCHIATRICaxox3 male in nad Medications: Inpatient Meds: Current Medications Medications (Trade) Dose Ordered Sig/Rosalino Start Time Stop Time Status Last Admin Dose Admin Acetaminophen (Tylenol) 650 mg PRN Q4HRS PRN 09/18/19 15:45 09/19/19 15:44 Acetaminophen/ Hydrocodone Bitart (Lortab 5/325) 1 tab PRN Q4HRS PRN 09/18/19 15:45 Amlodipine Besylate (Norvasc) 10 mg DAILY 09/19/19 09:00 09/19/19 09:42 10 MG Aspirin (Ecotrin) 81 mg DAILYWBKFT 09/19/19 08:00 09/19/19 10:19 81 MG Atorvastatin Calcium (Lipitor) 40 mg HS 09/18/19 21:00 09/19/19 09:44 40 MG Calcitriol (Rocaltrol) 0.5 mcg DAILY 09/19/19 09:00 09/19/19 09:43 0.5 MCG Calcium Carbonate/ Glycine (Tums) 500 mg PRN AFTMEALHC PRN 09/18/19 15:45 Carvedilol (Coreg) 25 mg BIDWMEALS 09/19/19 08:00 09/19/19 09:43 25 MG Ceftriaxone Sodium (Rocephin) 1 gm Q24H 09/19/19 09:00 09/19/19 09:47 1 GM Dextrose (Dextrose 50%-Water Syringe) 25 gm 1X ONCE 09/18/19 17:30 09/18/19 18:36 DC 09/18/19 17:27 25 GM Dextrose (Iv Dextrose 5%) 250 ml PRN Q15MIN PRN 09/18/19 15:45 Fluconazole (Diflucan) 100 mg DAILY 09/19/19 09:00 09/19/19 09:42 100 MG Furosemide (Lasix) 80 mg [id number] 09/19/19 09:00 09/19/19 09:43 80 MG Insulin Glargine (Lantus Syringe) 11 unit QHS 09/18/19 21:00 Insulin Human Lispro (HumaLOG) 22 units TIDWMEALS 09/19/19 08:00 Lactobacillus Rhamnosus (Culturelle) 1 cap BID 09/18/19 21:00 09/19/19 09:43 1 CAP Losartan Potassium (Cozaar) 100 mg HS 09/18/19 21:00 Montelukast Sodium (Singulair) 10 mg PRN QHS PRN 09/18/19 15:45 Non-Formulary Medication (Glucagon,Human Recombinant (Glucagen)) 1 % PRN PRN 09/18/19 15:45 UNV Ondansetron HCl (Zofran Odt) 4 mg PRN QID PRN 09/18/19 15:45 Ondansetron HCl (Zofran) 4 mg PRN Q8HRS PRN 09/18/19 15:45 09/19/19 15:44 Pantoprazole Sodium (PROTONIX VIAL for IV PUSH) 80 mg 1X ONCE 09/18/19 15:45 09/18/19 15:46 Cancel Pantoprazole Sodium (Protonix) 40 mg DAILYAC 09/19/19 07:30 09/19/19 09:42 40 MG Pantoprazole Sodium 80 mg/ Sodium Chloride 100 ml @ 10 mls/hr Q10H 09/18/19 15:45 Cancel Piperacillin Sod/ Tazobactam Sod 3.375 gm/Sodium Chloride 50 ml @ 100 mls/hr 1X ONCE 09/18/19 15:30 09/18/19 15:59 DC 09/18/19 15:52 100 MLS/HR Tamsulosin HCl (Flomax) 0.4 mg HS 09/18/19 21:00 09/18/19 21:39 0.4 MG Temazepam (Restoril) 7.5 mg PRN QHS PRN 09/18/19 15:45 09/18/19 21:41 7.5 MG Tramadol HCl (Ultram) 50 mg PRN Q6HRS PRN 09/18/19 15:45 Vancomycin HCl (Vanco Per Pharmacy) 1 each PRN DAILY PRN 09/18/19 15:30 Vancomycin HCl 1.75 gm/Sodium Chloride 500 ml @ 250 mls/hr 1X ONCE 09/18/19 15:45 09/18/19 17:44 DC 09/18/19 17:05 250 MLS/HR Labs: Lab Laboratory Tests Test 09/18/19 13:46 09/18/19 13:55 09/18/19 14:24 09/18/19 15:30 Glucose (Fingerstick) 54 mg/dL (70-99) 101 mg/dL (70-99) White Blood Count 18.6 x10^3/uL (4.0-11.0) Red Blood Count 3.45 x10^6/uL (4.30-5.70) Hemoglobin 10.3 g/dL (13.0-17.5) Hematocrit 32.5 % (39.0-53.0) Mean Corpuscular Volume 94 fL (79-100) Mean Corpuscular Hemoglobin 30 pg (25-35) Mean Corpuscular Hemoglobin Concent 32 g/dL (31-37) Red Cell Distribution Width 18.6 % (11.5-14.5) Platelet Count 330 x10^3/uL (140-400) Neutrophils (%) (Auto) 92 % (31-73) Lymphocytes (%) (Auto) 2 % (24-48) Monocytes (%) (Auto) 5 % (0-9) Eosinophils (%) (Auto) 0 % (0-3) Basophils (%) (Auto) 1 % (0-3) Neutrophils # (Auto) 17.1 x10^3/uL (1.8-7.7) Lymphocytes # (Auto) 0.3 x10^3/uL (1.0-4.8) Monocytes # (Auto) 1.0 x10^3/uL (0.0-1.1) Eosinophils # (Auto) 0.0 x10^3/uL (0.0-0.7) Basophils # (Auto) 0.1 x10^3/uL (0.0-0.2) Sodium Level 134 mmol/L (136-145) Potassium Level 3.6 mmol/L (3.5-5.1) Chloride Level 94 mmol/L (98-107) Carbon Dioxide Level 27 mmol/L (21-32) Anion Gap 13 (6-14) Blood Urea Nitrogen 69 mg/dL (8-26) Creatinine 7.8 mg/dL (0.7-1.3) Estimated GFR (Cockcroft-Gault) 7.3 BUN/Creatinine Ratio 9 (6-20) Glucose Level 65 mg/dL (70-99) Lactic Acid Level 1.2 mmol/L (0.4-2.0) Calcium Level 7.8 mg/dL (8.5-10.1) Magnesium Level 1.6 mg/dL (1.8-2.4) Total Bilirubin 0.3 mg/dL (0.2-1.0) Aspartate Amino Transf (AST/SGOT) 22 U/L (15-37) Alanine Aminotransferase (ALT/SGPT) 8 U/L (16-63) Alkaline Phosphatase 123 U/L (46-116) Creatine Kinase 195 U/L (39-308) Creatine Kinase MB (Mass) 4.6 ng/mL (0.0-3.6) Creatine Kinase MB Relative Index 2.4 % (0-4) Troponin I Quantitative 0.039 ng/mL (0.000-0.055) Total Protein 4.8 g/dL (6.4-8.2) Albumin 1.2 g/dL (3.4-5.0) Albumin/Globulin Ratio 0.3 (1.0-1.7) Ammonia < 10 mcmol/L (11-34) Test 09/18/19 15:41 09/18/19 17:11 09/18/19 17:47 09/18/19 21:09 Glucose (Fingerstick) 50 mg/dL (70-99) 58 mg/dL (70-99) 102 mg/dL (70-99) 46 mg/dL (70-99) Test 09/18/19 23:29 09/19/19 03:25 09/19/19 08:22 09/19/19 11:09 Glucose (Fingerstick) 114 mg/dL (70-99) 105 mg/dL (70-99) 143 mg/dL (70-99) White Blood Count 15.9 x10^3/uL (4.0-11.0) Red Blood Count 3.38 x10^6/uL (4.30-5.70) Hemoglobin 10.1 g/dL (13.0-17.5) Hematocrit 31.9 % (39.0-53.0) Mean Corpuscular Volume 94 fL (79-100) Mean Corpuscular Hemoglobin 30 pg (25-35) Mean Corpuscular Hemoglobin Concent 32 g/dL (31-37) Red Cell Distribution Width 18.3 % (11.5-14.5) Platelet Count 326 x10^3/uL (140-400) Neutrophils (%) (Auto) 88 % (31-73) Lymphocytes (%) (Auto) 5 % (24-48) Monocytes (%) (Auto) 7 % (0-9) Eosinophils (%) (Auto) 0 % (0-3) Basophils (%) (Auto) 0 % (0-3) Neutrophils # (Auto) 14.0 x10^3/uL (1.8-7.7) Lymphocytes # (Auto) 0.7 x10^3/uL (1.0-4.8) Monocytes # (Auto) 1.0 x10^3/uL (0.0-1.1) Eosinophils # (Auto) 0.0 x10^3/uL (0.0-0.7) Basophils # (Auto) 0.1 x10^3/uL (0.0-0.2) Segmented Neutrophils % 92 % (35-66) Band Neutrophils % 2 % (0-9) Lymphocytes % 2 % (24-48) Monocytes % 2 % (0-10) Eosinophils % 2 % (0-5) Platelet Estimate Adequate (ADEQUATE) Erythrocyte Sedimentation Rate 120 (0-15) Sodium Level 133 mmol/L (136-145) Potassium Level 3.6 mmol/L (3.5-5.1) Chloride Level 93 mmol/L (98-107) Carbon Dioxide Level 25 mmol/L (21-32) Anion Gap 15 (6-14) Blood Urea Nitrogen 73 mg/dL (8-26) Creatinine 7.8 mg/dL (0.7-1.3) Estimated GFR (Cockcroft-Gault) 7.3 Glucose Level 96 mg/dL (70-99) Calcium Level 8.3 mg/dL (8.5-10.1) Phosphorus Level 9.2 mg/dL (2.6-4.7) Albumin 1.2 g/dL (3.4-5.0) Objective: Assessment: 1. Leukocytosis, 2. Acute Encephalopathy. Improved likely from hypoglycemia. 3. Diabetes mellitus, poorly controlled. 4. Balanitis 5. Anemia of chronic disease. 6. End-stage renal disease, on peritoneal dialysis. 7. Peripheral vascular disease. Plan: Plan of Care Cont rocephin start micafungin start doxycycline needs urology,not available at this center Continue supportive care. Discussed with Nursing staff SABRINA STACY MD Sep 19, 2019 12:01
[2019-09-19] MEDS: traMADol 50 MG TABLET PO PRN ×2 (12:05→20:02)
--- NOTE | 2019-09-19 13:12 | PDOC1 ---
History and Physical Date of Admission: Date of Admission DATE: 09/19/19 TIME: 13:06 Chief Complaint: Problems: (1) Hyperkalemia (2) Renal failure (3) Dialysis AV fistula malfunction (4) Clotted dialysis access (5) ESRD (end stage renal disease) (6) Hypoglycemia (7) Penile cellulitis (8) Hypomagnesemia (9) Hypocalcemia (10) Leukocytosis Chief Complain: Mental status change with hypoglycemia History of Present Illness: HPI: This is a pleasant 53 old male who lives in a trailer at [place]. States his and father live with him. Patient developed mental status change last night and so the family called 911 EMS report states that last night the patient took a shot of glucagon followed by a shot of "long acting" insulin followed by a shot of glucagon followed by another shot of "long acting" insulin. Significant other reports he was very confused at that time and she was concerned it might be secondary to his hydrocodone use. In in this morning. EMS responded to a call by patient's family members that he was acting "funny". Upon EMS arrival, blood sugars were undetectable. EMS was unable to get IV access so they obtained an IO to right tibia and gave the patient D5. The patient became alert and oriented after that with repeat blood sugar of 70. On exam in the emergency room the patient is AO 4 with a blood sugar of 55. Patient denies any other complaints at this time, denies chest pain, shortness of breath, fevers, chills, abdominal pain, constipation, diarrhea, dysuria, increased frequency, and headache. Of incidental note the patient also has severe balanitis and swelling of the glans penis with erythema and some slight discharge. Patient is being admitted with infectious disease and nephrology consultation Past Medical/Surgical History: PMH/PSH: Past Medical History: COPD, CVA, Diabetes-Type I, Hypertension, [place], Renal Failure, Other Additional Past Medical Histor: Peritoneal Dialysis Past Medical History Limited secondary to patient's altered mental status Past Surgical History: Other Additional Past Surgical Histo: LEFT FA AV SHUNT, bilateral foot reconstruction, Peritoneal dialysis cath Past Surgical History Limited secondary to patient's altered mental status Smokin Pack Per Day Alcohol Use: Sober Drug Use: None Social History Limited secondary to patient's altered mental status Allergies: Allergies: Coded Allergies: lamotrigine (Verified Allergy, Severe, HIVES, SHORTNESS OF BREATH, 08/27/19) Family History: Family History: Diabetes and hypertension Social History: Social Hisoty: He lives at home with his and his father. 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 Does not drink smoke or take drugs Current Medications: Current Medications Current Medications Dextrose (Dextrose 50%-Water Syringe) 25 gm 1X ONCE IV Last administered on 09/18/19at 14:00; Start 09/18/19 at 14:00; Stop 09/18/19 at 14:01; Status DC Piperacillin Sod/ Tazobactam Sod 3.375 gm/Sodium Chloride 50 ml @ 100 mls/hr 1X ONCE IV Last administered on 09/18/19at 15:52; Start 09/18/19 at 15:30; Stop 09/18/19 at 15:59; Status DC Vancomycin HCl (Vanco Per Pharmacy) 1 each PRN DAILY PRN MC SEE COMMENTS; Start 09/18/19 at 15:30 Pantoprazole Sodium 80 mg/ Sodium Chloride 100 ml @ 10 mls/hr Q10H IV ; Start 09/18/19 at 15:45; Status Cancel Pantoprazole Sodium (PROTONIX VIAL for IV PUSH) 80 mg 1X ONCE IVP ; Start 09/18/19 at 15:45; Stop 09/18/19 at 15:46; Status Cancel Vancomycin HCl 1.75 gm/Sodium Chloride 500 ml @ 250 mls/hr 1X ONCE IV Last a dministered on 09/18/19at 17:05; Start 09/18/19 at 15:45; Stop 09/18/19 at 17:44; Status DC Ondansetron HCl (Zofran) 4 mg PRN Q8HRS PRN IV NAUSEA/VOMITING; Start 09/18/19 at 15:45; Stop 09/19/19 at 15:44 Acetaminophen (Tylenol) 650 mg PRN Q4HRS PRN PO FEVER Last administered on 09/19/19at 12:05; Start 09/18/19 at 15:45; Stop 09/19/19 at 15:44 Insulin Human Lispro (HumaLOG) 0-5 UNITS TIDWMEALS SQ ; Start 09/18/19 at 17:00; Stop 09/18/19 at 15:49; Status DC Dextrose (Dextrose 50%-Water Syringe) 12.5 gm PRN Q15MIN PRN IV SEE COMMENTS; Start 09/18/19 at 15:45 Dextrose (Iv Dextrose 5%) 250 ml PRN Q15MIN PRN IV SEE COMMENTS; Start 09/18/19 at 15:45 Insulin Human Lispro (HumaLOG) 0-7 UNITS TIDWMEALS SQ ; Start 09/19/19 at 08:00 Dextrose (Dextrose 50%-Water Syringe) 12.5 gm PRN Q15MIN PRN IV SEE COMMENTS; Start 09/18/19 at 15:45; Status UNV Dextrose (Iv Dextrose 5%) 250 ml PRN Q15MIN PRN IV SEE COMMENTS; Start 09/18/19 at 15:45 Ceftriaxone Sodium (Rocephin) 1 gm Q24H IVP Last administered on 09/19/19at 0 9:47; Start 09/19/19 at 09:00 Calcium Carbonate/ Glycine (Tums) 500 mg PRN AFTMEALHC PRN PO INDIGESTION; Start 09/18/19 at 15:45 Acetaminophen/ Hydrocodone Bitart (Lortab 5/325) 1 tab PRN Q4HRS PRN PO PAIN; Start 09/18/19 at 15:45 Temazepam (Restoril) 7.5 mg PRN QHS PRN PO INSOMNIA Last administered on 09/18/19at 21:41; Start 09/18/19 at 15:45 Amlodipine Besylate (Norvasc) 10 mg DAILY PO Last administered on 09/19/19at 09:42; Start 09/19/19 at 09:00 Aspirin (Ecotrin) 81 mg DAILYWBKFT PO Last administered on 09/19/19at 10:19; Start 09/19/19 at 08:00 Atorvastatin Calcium (Lipitor) 40 mg HS PO Last administered on 09/19/19at 09:44; Start 09/18/19 at 21:00 Furosemide (Lasix) 80 mg BID94 PO Last administered on 09/19/19at 09:43; Start 09/19/19 at 09:00 Lactobacillus Rhamnosus (Culturelle) 1 cap BID PO Last administered on 09/19/19at 09:43; Start 09/18/19 at 21:00 Montelukast Sodium (Singulair) 10 mg PRN QHS PRN PO ALLERGIES; Start 09/18/19 at 15:45 Ondansetron HCl (Zofran Odt) 4 mg PRN QID PRN PO NAUSEA; Start 09/18/19 at 15:45 Tamsulosin HCl (Flomax) 0.4 mg HS PO Last administered on 09/18/19at 21:39; Start 09/18/19 at 21:00 Tramadol HCl (Ultram) 50 mg PRN Q6HRS PRN PO MODERATE PAIN Last administered on 09/19/19at 12:05; Start 09/18/19 at 15:45 Calcitriol (Rocaltrol) 0.5 mcg DAILY PO Last administered on 09/19/19at 09:43; Start 09/19/19 at 09:00 Carvedilol (Coreg) 25 mg BIDWMEALS PO Last administered on 09/19/19at 09:43; Start 09/19/19 at 08:00 Non-Formulary Medication (Glucagon,Human Recombinant (Glucagen)) 1 % PRN PRN .ROUTE LOW BLOOD SUGAR; Start 09/18/19 at 15:45; Status UNV Insulin Glargine (Lantus Syringe) 11 unit QHS SQ ; Start 09/18/19 at 21:00 Insulin Human Lispro (HumaLOG) 22 units TIDWMEALS SQ ; Start 09/19/19 at 08:00 Losartan Potassium (Cozaar) 100 mg HS PO ; Start 09/18/19 at 21:00 Pantoprazole Sodium (Protonix) 40 mg DAILYAC PO Last administered on 09/19/19at 09:42; Start 09/19/19 at 07:30 Fluconazole (Diflucan) 100 mg DAILY PO Last administered on 09/19/19at 09:42; Start 09/19/19 at 09:00 Dextrose (Dextrose 50%-Water Syringe) 25 gm 1X ONCE IV Last administered on 09/18/19at 15:50; Start 09/18/19 at 15:45; Stop 09/18/19 at 16:11; Status DC Dextrose (Dextrose 50%-Water Syringe) 25 gm 1X ONCE IV Last administered on 09/18/19at 17:27; Start 09/18/19 at 17:30; Stop 09/18/19 at 18:36; Status DC Active Scripts Active Tramadol Hcl 50 Mg Tablet 50 Mg PO PRN Q6HRS PRN 3 Days Culturelle (Lactobacillus Rhamnosus Gg) 1 Each Cap.sprink 1 Cap PO BID 7 Days [Fluconazole] 100 MG Tablet 100 Mg PO DAILY 7 Days Doxycycline Hyclate 100 Mg Tablet 100 Mg PO BID 7 Days Amox Tr-K Clv 500-125 Mg Tab (Amoxicillin/Potassium Clav) 1 Each Tablet 1 Tab PO DAILY 7 Days Aspirin Ec (Aspirin) 81 Mg Tablet.dr 81 Mg PO DAILYWBKFT Reported Omeprazole 20 Mg Tablet.dr 20 Mg PO DAILY Calcitriol 0.5 Mcg Capsule 0.5 Mcg PO DAILY Furosemide 80 Mg Tablet 80 Mg PO BID Glucagen (Glucagon,Human Recombinant) 1 Mg Vial 1 PRN PRN Tamsulosin Hcl 0.4 Mg Cap.er.24h 1 Cap PO HS Montelukast Sodium Tablet (Montelukast Sodium) 10 Mg Tablet 1 Tab PO HS PRN Ondansetron Odt (Ondansetron) 4 Mg Tab.rapdis 1 Tab PO PRN Q6-8HRS PRN Lantus Solostar (Insulin Glargine,Hum.rec.anlog) 100 Unit/1 Ml Insuln.pen 11 Unit SQ QHS Humalog (Insulin Lispro) 100 Unit/1 Ml Cartridge 22 Unit SQ TIDWMEALS Cozaar (Losartan Potassium) 100 Mg Tablet 100 Mg PO HS Carvedilol 25 Mg Tablet 25 Mg PO BIDWMEALS Atorvastatin Calcium 40 Mg Tablet 40 Mg PO HS Amlodipine Besylate 10 Mg Tablet 10 Mg PO DAILY ROS: Review of Systems Review of System REVIEW OF SYSTEMS: GENERAL: Complains of weakness SKIN: Complains of a rash and erythema on his penis EYES: No blurred, double or loss of vision. NOSE AND THROAT: No history of nosebleeds, hoarseness or sore throat. HEART: No history of palpitations, chest pain or shortness of breath on exertion. LUNGS: Denies cough, hemoptysis, wheezing or shortness of breath. GASTROINTESTINAL: Denies changes in appetite, nausea, vomiting, diarrhea or constipation. GENITOURINARY: Complains of penile swelling and erythema and sometimes he has problems urinating although he is on dialysis so he doesn't urinate that much anyway NEUROLOGIC: Complains of some weakness PSYCHIATRIC: Complains of anxiety and depression. ENDOCRINE: No history of heat or cold intolerance, polyuria or polydipsia. EXTREMITIES: Denies muscle weakness, joint pain, pain on walking or stiffness. Physical Exam: Vital Signs: Vital Signs Date Time Temp Pulse Resp B/P (MAP) Pulse Ox O2 Delivery O2 Flow Rate FiO2 09/19/19 11:00 98.3 86 18 101/54 (70) 96 Nasal Cannula 2.0 98.3 Physcial Exam: GEN: No apparent distress. Alert and oriented HEENT: Normal cephalic, atraumatic, external auditory canals are patent EYES: Extraocular muscles are intact, pupil are equally round and reactive to light and accommodation MUSCULOSKELETAL: Well developed , well nourished, good range of motion ENDOCRINE: Ny thyromegaly was palpated LYMPHATICS: No cervical chain or axillary nodes were noted HEMATOPOIETIC: No bruising NECK: Supple, no JVD, no thyromegaly was noted LUNGS: Clear to auscultation in all lung orta without rhonchi or wheezing HEART: RRR, S!, S2 present. Peripheral pulses intact, no obvious murmurs noted ABDOMEN: Soft, nontender. Positive bowel sounds, no organomegaly, normal bowel sounds EXTREMITIES: Without clubbing, cyanosis, or edema. Pedal pulses intact. Negative Homans sign NEUROLOGIC: Depressed week PSYCHIATRIC: Appears depressed SKIN: Skin is frail and has some neurotic excoriations somewhat pale VASCULAR: Good capillary refill, neurovascular bundle appears to be intact Genitourinary he has balanitis and swelling of the glans penis with redness and slight discharge Labs: Labs: Laboratory Tests Test 09/18/19 13:46 09/18/19 13:55 09/18/19 14:24 09/18/19 15:30 Glucose (Fingerstick) 54 mg/dL (70-99) 101 mg/dL (70-99) White Blood Count 18.6 x10^3/uL (4.0-11.0) Red Blood Count 3.45 x10^6/uL (4.30-5.70) Hemoglobin 10.3 g/dL (13.0-17.5) Hematocrit 32.5 % (39.0-53.0) Mean Corpuscular Volume 94 fL (79-100) Mean Corpuscular Hemoglobin 30 pg (25-35) Mean Corpuscular Hemoglobin Concent 32 g/dL (31-37) Red Cell Distribution Width 18.6 % (11.5-14.5) Platelet Count 330 x10^3/uL (140-400) Neutrophils (%) (Auto) 92 % (31-73) Lymphocytes (%) (Auto) 2 % (24-48) Monocytes (%) (Auto) 5 % (0-9) Eosinophils (%) (Auto) 0 % (0-3) Basophils (%) (Auto) 1 % (0-3) Neutrophils # (Auto) 17.1 x10^3/uL (1.8-7.7) Lymphocytes # (Auto) 0.3 x10^3/uL (1.0-4.8) Monocytes # (Auto) 1.0 x10^3/uL (0.0-1.1) Eosinophils # (Auto) 0.0 x10^3/uL (0.0-0.7) Basophils # (Auto) 0.1 x10^3/uL (0.0-0.2) Sodium Level 134 mmol/L (136-145) Potassium Level 3.6 mmol/L (3.5-5.1) Chloride Level 94 mmol/L (98-107) Carbon Dioxide Level 27 mmol/L (21-32) Anion Gap 13 (6-14) Blood Urea Nitrogen 69 mg/dL (8-26) Creatinine 7.8 mg/dL (0.7-1.3) Estimated GFR (Cockcroft-Gault) 7.3 BUN/Creatinine Ratio 9 (6-20) Glucose Level 65 mg/dL (70-99) Lactic Acid Level 1.2 mmol/L (0.4-2.0) Calcium Level 7.8 mg/dL (8.5-10.1) Magnesium Level 1.6 mg/dL (1.8-2.4) Total Bilirubin 0.3 mg/dL (0.2-1.0) Aspartate Amino Transf (AST/SGOT) 22 U/L (15-37) Alanine Aminotransferase (ALT/SGPT) 8 U/L (16-63) Alkaline Phosphatase 123 U/L (46-116) Creatine Kinase 195 U/L (39-308) Creatine Kinase MB (Mass) 4.6 ng/mL (0.0-3.6) Creatine Kinase MB Relative Index 2.4 % (0-4) Troponin I Quantitative 0.039 ng/mL (0.000-0.055) Total Protein 4.8 g/dL (6.4-8.2) Albumin 1.2 g/dL (3.4-5.0) Albumin/Globulin Ratio 0.3 (1.0-1.7) Ammonia < 10 mcmol/L (11-34) Test 09/18/19 15:41 09/18/19 17:11 09/18/19 17:47 09/18/19 21:09 Glucose (Fingerstick) 50 mg/dL (70-99) 58 mg/dL (70-99) 102 mg/dL (70-99) 46 mg/dL (70-99) Test 09/18/19 23:29 09/19/19 03:25 09/19/19 08:22 09/19/19 11:09 Glucose (Fingerstick) 114 mg/dL (70-99) 105 mg/dL (70-99) 143 mg/dL (70-99) White Blood Count 15.9 x10^3/uL (4.0-11.0) Red Blood Count 3.38 x10^6/uL (4.30-5.70) Hemoglobin 10.1 g/dL (13.0-17.5) Hematocrit 31.9 % (39.0-53.0) Mean Corpuscular Volume 94 fL (79-100) Mean Corpuscular Hemoglobin 30 pg (25-35) Mean Corpuscular Hemoglobin Concent 32 g/dL (31-37) Red Cell Distribution Width 18.3 % (11.5-14.5) Platelet Count 326 x10^3/uL (140-400) Neutrophils (%) (Auto) 88 % (31-73) Lymphocytes (%) (Auto) 5 % (24-48) Monocytes (%) (Auto) 7 % (0-9) Eosinophils (%) (Auto) 0 % (0-3) Basophils (%) (Auto) 0 % (0-3) Neutrophils # (Auto) 14.0 x10^3/uL (1.8-7.7) Lymphocytes # (Auto) 0.7 x10^3/uL (1.0-4.8) Monocytes # (Auto) 1.0 x10^3/uL (0.0-1.1) Eosinophils # (Auto) 0.0 x10^3/uL (0.0-0.7) Basophils # (Auto) 0.1 x10^3/uL (0.0-0.2) Segmented Neutrophils % 92 % (35-66) Band Neutrophils % 2 % (0-9) Lymphocytes % 2 % (24-48) Monocytes % 2 % (0-10) Eosinophils % 2 % (0-5) Platelet Estimate Adequate (ADEQUATE) Erythrocyte Sedimentation Rate 120 (0-15) Sodium Level 133 mmol/L (136-145) Potassium Level 3.6 mmol/L (3.5-5.1) Chloride Level 93 mmol/L (98-107) Carbon Dioxide Level 25 mmol/L (21-32) Anion Gap 15 (6-14) Blood Urea Nitrogen 73 mg/dL (8-26) Creatinine 7.8 mg/dL (0.7-1.3) Estimated GFR (Cockcroft-Gault) 7.3 Glucose Level 96 mg/dL (70-99) Calcium Level 8.3 mg/dL (8.5-10.1) Phosphorus Level 9.2 mg/dL (2.6-4.7) Albumin 1.2 g/dL (3.4-5.0) Laboratory Tests Test 09/18/19 13:46 09/18/19 13:55 09/18/19 14:24 09/18/19 15:30 Glucose (Fingerstick) 54 mg/dL (70-99) 101 mg/dL (70-99) White Blood Count 18.6 x10^3/uL (4.0-11.0) Red Blood Count 3.45 x10^6/uL (4.30-5.70) Hemoglobin 10.3 g/dL (13.0-17.5) Hematocrit 32.5 % (39.0-53.0) Mean Corpuscular Volume 94 fL (79-100) Mean Corpuscular Hemoglobin 30 pg (25-35) Mean Corpuscular Hemoglobin Concent 32 g/dL (31-37) Red Cell Distribution Width 18.6 % (11.5-14.5) Platelet Count 330 x10^3/uL (140-400) Neutrophils (%) (Auto) 92 % (31-73) Lymphocytes (%) (Auto) 2 % (24-48) Monocytes (%) (Auto) 5 % (0-9) Eosinophils (%) (Auto) 0 % (0-3) Basophils (%) (Auto) 1 % (0-3) Neutrophils # (Auto) 17.1 x10^3/uL (1.8-7.7) Lymphocytes # (Auto) 0.3 x10^3/uL (1.0-4.8) Monocytes # (Auto) 1.0 x10^3/uL (0.0-1.1) Eosinophils # (Auto) 0.0 x10^3/uL (0.0-0.7) Basophils # (Auto) 0.1 x10^3/uL (0.0-0.2) Sodium Level 134 mmol/L (136-145) Potassium Level 3.6 mmol/L (3.5-5.1) Chloride Level 94 mmol/L (98-107) Carbon Dioxide Level 27 mmol/L (21-32) Anion Gap 13 (6-14) Blood Urea Nitrogen 69 mg/dL (8-26) Creatinine 7.8 mg/dL (0.7-1.3) Estimated GFR (Cockcroft-Gault) 7.3 BUN/Creatinine Ratio 9 (6-20) Glucose Level 65 mg/dL (70-99) Lactic Acid Level 1.2 mmol/L (0.4-2.0) Calcium Level 7.8 mg/dL (8.5-10.1) Magnesium Level 1.6 mg/dL (1.8-2.4) Total Bilirubin 0.3 mg/dL (0.2-1.0) Aspartate Amino Transf (AST/SGOT) 22 U/L (15-37) Alanine Aminotransferase (ALT/SGPT) 8 U/L (16-63) Alkaline Phosphatase 123 U/L (46-116) Creatine Kinase 195 U/L (39-308) Creatine Kinase MB (Mass) 4.6 ng/mL (0.0-3.6) Creatine Kinase MB Relative Index 2.4 % (0-4) Troponin I Quantitative 0.039 ng/mL (0.000-0.055) Total Protein 4.8 g/dL (6.4-8.2) Albumin 1.2 g/dL (3.4-5.0) Albumin/Globulin Ratio 0.3 (1.0-1.7) Ammonia < 10 mcmol/L (11-34) Test 09/18/19 15:41 09/18/19 17:11 09/18/19 17:47 09/18/19 21:09 Glucose (Fingerstick) 50 mg/dL (70-99) 58 mg/dL (70-99) 102 mg/dL (70-99) 46 mg/dL (70-99) Test 09/18/19 23:29 09/19/19 03:25 09/19/19 08:22 09/19/19 11:09 Glucose (Fingerstick) 114 mg/dL (70-99) 105 mg/dL (70-99) 143 mg/dL (70-99) White Blood Count 15.9 x10^3/uL (4.0-11.0) Red Blood Count 3.38 x10^6/uL (4.30-5.70) Hemoglobin 10.1 g/dL (13.0-17.5) Hematocrit 31.9 % (39.0-53.0) Mean Corpuscular Volume 94 fL (79-100) Mean Corpuscular Hemoglobin 30 pg (25-35) Mean Corpuscular Hemoglobin Concent 32 g/dL (31-37) Red Cell Distribution Width 18.3 % (11.5-14.5) Platelet Count 326 x10^3/uL (140-400) Neutrophils (%) (Auto) 88 % (31-73) Lymphocytes (%) (Auto) 5 % (24-48) Monocytes (%) (Auto) 7 % (0-9) Eosinophils (%) (Auto) 0 % (0-3) Basophils (%) (Auto) 0 % (0-3) Neutrophils # (Auto) 14.0 x10^3/uL (1.8-7.7) Lymphocytes # (Auto) 0.7 x10^3/uL (1.0-4.8) Monocytes # (Auto) 1.0 x10^3/uL (0.0-1.1) Eosinophils # (Auto) 0.0 x10^3/uL (0.0-0.7) Basophils # (Auto) 0.1 x10^3/uL (0.0-0.2) Segmented Neutrophils % 92 % (35-66) Band Neutrophils % 2 % (0-9) Lymphocytes % 2 % (24-48) Monocytes % 2 % (0-10) Eosinophils % 2 % (0-5) Platelet Estimate Adequate (ADEQUATE) Erythrocyte Sedimentation Rate 120 (0-15) Sodium Level 133 mmol/L (136-145) Potassium Level 3.6 mmol/L (3.5-5.1) Chloride Level 93 mmol/L (98-107) Carbon Dioxide Level 25 mmol/L (21-32) Anion Gap 15 (6-14) Blood Urea Nitrogen 73 mg/dL (8-26) Creatinine 7.8 mg/dL (0.7-1.3) Estimated GFR (Cockcroft-Gault) 7.3 Glucose Level 96 mg/dL (70-99) Calcium Level 8.3 mg/dL (8.5-10.1) Phosphorus Level 9.2 mg/dL (2.6-4.7) Albumin 1.2 g/dL (3.4-5.0) Images: Images PROCEDURE: PORTABLE CHEST 1V Single AP view of the chest. Comparison: 09/09/2019. Indication: Cough and hypoglycemia Findings: The heart is enlarged but stable. There is no pneumothorax or effusion. No air space or interstitial disease. Impression: 1. No acute cardiopulmonary process. Assessment/Plan Assessment/Plan Hypoglycemia secondary to too much insulin, and still finding of balanitis Plan Continue his peritoneal dialysis IV antibiotics and we have consulted infectious disease We'll cautiously trend his glucose Continue home meds but try to decrease the insulin DVT prophylaxis PT OT Full code KRISTEN [place] III DO Sep 19, 2019 13:12
[2019-09-19] MEDS: MICAFUNGIN 100 MG in IV DEXTROSE 5% 100ML 100 ML IV SCH (14:41)
[2019-09-19] MEDS: DOXYCYCLINE HYCLATE 100 MG TABLET PO SCH ×2 (14:41→21:58)
--- NOTE | 2019-09-19 15:25 | PDOC2 ---
CONSULT Date of Consult Date of Consult DATE: 09/19/19 TIME: 15:20 Reason for Consult Reason for Consult: ESRD Referring Physician Referring Physician: AVILA Identification/Chief Complaint Chief Complaint LOW GLUCOSE AND CONFUSION Source Source: Chart review History of Present Illness Reason for Visit: THIS IS A 53 YR OLD ESRD PT WITH CONFUSION AND HYPOGLYCEMIA. HE IS ON PD. IT IS FELT THAT HIS CONFUSION IS DUE TO HIS HYDROCODONE USE. LABS ARE C/W ESRD. HE WAS HERE JUST RECENTLY AND TX ANTIBIOTICS FOR PENILE CELLULITIS. LEUCOCYTOSIS AND SEVERE HYPERPHOSPHATEMIA NOTED. HX OF NON COMPLIANCE ALSO NOTED. ESRD IS DUE TO DM II AND HTN Past Medical History Cardiovascular: CAD, HTN, Hyperlipidemia Pulmonary: COPD CENTRAL NERVOUS SYSTEM: CVA GI: Constipation Heme/Onc: Anemia NOS Musculoskeletal: Osteoarthritis Renal/: Chronic renal failure, Benign prostatic enlarg. Endocrine: Diabetes, Hyperparathyroidism Past Surgical History Past Surgical History: Total knee replacement, Other Family History Family History: Cancer Social History ALCOHOL: none Drugs: None Lives: with Family Current Problem List Problem List Problems Medical Problems: (1) Hypocalcemia Status: Acute (2) Hypomagnesemia Status: Acute (3) Leukocytosis Status: Acute Current Medications Current Medications Current Medications Dextrose (Dextrose 50%-Water Syringe) 25 gm 1X ONCE IV Last administered on 09/18/19at 14:00; Start 09/18/19 at 14:00; Stop 09/18/19 at 14:01; Status DC Piperacillin Sod/ Tazobactam Sod 3.375 gm/Sodium Chloride 50 ml @ 100 mls/hr 1X ONCE IV Last administered on 09/18/19at 15:52; Start 09/18/19 at 15:30; Stop 09/18/19 at 15:59; Status DC Vancomycin HCl (Vanco Per Pharmacy) 1 each PRN DAILY PRN MC SEE COMMENTS; Start 09/18/19 at 15:30 Pantoprazole Sodium 80 mg/ Sodium Chloride 100 ml @ 10 mls/hr Q10H IV ; Start 09/18/19 at 15:45; Status Cancel Pantoprazole Sodium (PROTONIX VIAL for IV PUSH) 80 mg 1X ONCE IVP ; Start 09/18/19 at 15:45; Stop 09/18/19 at 15:46; Status Cancel Vancomycin HCl 1.75 gm/Sodium Chloride 500 ml @ 250 mls/hr 1X ONCE IV Last administered on 09/18/19at 17:05; Start 09/18/19 at 15:45; Stop 09/18/19 at 17:44; Status DC Ondansetron HCl (Zofran) 4 mg PRN Q8HRS PRN IV NAUSEA/VOMITING; Start 09/18/19 at 15:45; Stop 09/19/19 at 15:44 Acetaminophen (Tylenol) 650 mg PRN Q4HRS PRN PO FEVER Last administered on 09/19/19at 12:05; Start 09/18/19 at 15:45; Stop 09/19/19 at 15:44 Insulin Human Lispro (HumaLOG) 0-5 UNITS TIDWMEALS SQ ; Start 09/18/19 at 17:00; Stop 09/18/19 at 15:49; Status DC Dextrose (Dextrose 50%-Water Syringe) 12.5 gm PRN Q15MIN PRN IV SEE COMMENTS; Start 09/18/19 at 15:45 Dextrose (Iv Dextrose 5%) 250 ml PRN Q15MIN PRN IV SEE COMMENTS; Start 09/18/19 at 15:45 Insulin Human Lispro (HumaLOG) 0-7 UNITS TIDWMEALS SQ ; Start 09/19/19 at 08:00 Dextrose (Dextrose 50%-Water Syringe) 12.5 gm PRN Q15MIN PRN IV SEE COMMENTS; Start 09/18/19 at 15:45; Status UNV Dextrose (Iv Dextrose 5%) 250 ml PRN Q15MIN PRN IV SEE COMMENTS; Start 09/18/19 at 15:45 Ceftriaxone Sodium (Rocephin) 1 gm Q24H IVP Last administered on 09/19/19at 09:47; Start 09/19/19 at 09:00 Calcium Carbonate/ Glycine (Tums) 500 mg PRN AFTMEALHC PRN PO INDIGESTION; Start 09/18/19 at 15:45 Acetaminophen/ Hydrocodone Bitart (Lortab 5/325) 1 tab PRN Q4HRS PRN PO PAIN; Start 09/18/19 at 15:45 Temazepam (Restoril) 7.5 mg PRN QHS PRN PO INSOMNIA Last administered on 09/18/19at 21:41; Start 09/18/19 at 15:45 Amlodipine Besylate (Norvasc) 10 mg DAILY PO Last administered on 09/19/19at 09:42; Start 09/19/19 at 09:00 Aspirin (Ecotrin) 81 mg DAILYWBKFT PO Last administered on 09/19/19at 10:19; Start 09/19/19 at 08:00 Atorvastatin Calcium (Lipitor) 40 mg HS PO Last administered on 09/19/19at 09:44; Start 09/18/19 at 21:00 Furosemide (Lasix) 80 mg BID94 PO Last administered on 09/19/19at 14:41; Start 09/19/19 at 09:00 Lactobacillus Rhamnosus (Culturelle) 1 cap BID PO Last administered on 09/19/19at 09:43; Start 09/18/19 at 21:00 Montelukast Sodium (Singulair) 10 mg PRN QHS PRN PO ALLERGIES; Start 09/18/19 at 15:45 Ondansetron HCl (Zofran Odt) 4 mg PRN QID PRN PO NAUSEA; Start 09/18/19 at 15:45 Tamsulosin HCl (Flomax) 0.4 mg HS PO Last administered on 09/18/19at 21:39; Start 09/18/19 at 21:00 Tramadol HCl (Ultram) 50 mg PRN Q6HRS PRN PO MODERATE PAIN Last administered on 09/19/19at 12:05; Start 09/18/19 at 15:45 Calcitriol (Rocaltrol) 0.5 mcg DAILY PO Last administered on 09/19/19at 09:43; Start 09/19/19 at 09:00 Carvedilol (Coreg) 25 mg BIDWMEALS PO Last administered on 09/19/19at 09:43; Start 09/19/19 at 08:00 Non-Formulary Medication (Glucagon,Human Recombinant (Glucagen)) 1 % PRN PRN .ROUTE LOW BLOOD SUGAR; Start 09/18/19 at 15:45; Status UNV Insulin Glargine (Lantus Syringe) 11 unit QHS SQ ; Start 09/18/19 at 21:00 Insulin Human Lispro (HumaLOG) 22 units TIDWMEALS SQ ; Start 09/19/19 at 08:00; Stop 09/19/19 at 13:11; Status DC Losartan Potassium (Cozaar) 100 mg HS PO ; Start 09/18/19 at 21:00 Pantoprazole Sodium (Protonix) 40 mg DAILYAC PO Last administered on 09/19/19at 09:42; Start 09/19/19 at 07:30 Fluconazole (Diflucan) 100 mg DAILY PO Last administered on 09/19/19at 09:42; Start 09/19/19 at 09:00 Dextrose (Dextrose 50%-Water Syringe) 25 gm 1X ONCE IV Last administered on 09/18/19at 15:50; Start 09/18/19 at 15:45; Stop 09/18/19 at 16:11; Status DC Dextrose (Dextrose 50%-Water Syringe) 25 gm 1X ONCE IV Last administered on 09/18/19at 17:27; Start 09/18/19 at 17:30; Stop 09/18/19 at 18:36; Status DC Insulin Human Lispro (HumaLOG) 10 units TIDWMEALS SQ ; Start 09/19/19 at 13:15 Micafungin Sodium 100 mg/Dextrose 100 ml @ 100 mls/hr Q24H IV Last administered on 09/19/19at 14:41; Start 09/19/19 at 15:00 Doxycycline Hyclate (Vibra-Tab) 100 mg BID PO Last administered on 09/19/19at 14:41; Start 09/19/19 at 14:00 Active Scripts Active Tramadol Hcl 50 Mg Tablet 50 Mg PO PRN Q6HRS PRN 3 Days Culturelle (Lactobacillus Rhamnosus Gg) 1 Each Cap.sprink 1 Cap PO BID 7 Days [Fluconazole] 100 MG Tablet 100 Mg PO DAILY 7 Days Doxycycline Hyclate 100 Mg Tablet 100 Mg PO BID 7 Days Amox Tr-K Clv 500-125 Mg Tab (Amoxicillin/Potassium Clav) 1 Each Tablet 1 Tab PO DAILY 7 Days Aspirin Ec (Aspirin) 81 Mg Tablet. 81 Mg PO DAILYWBKFT Reported Omeprazole 20 Mg Tablet. 20 Mg PO DAILY Calcitriol 0.5 Mcg Capsule 0.5 Mcg PO DAILY Furosemide 80 Mg Tablet 80 Mg PO BID Glucagen (Glucagon,Human Recombinant) 1 Mg Vial 1 PRN PRN Tamsulosin Hcl 0.4 Mg Cap.er.24h 1 Cap PO HS Montelukast Sodium Tablet (Montelukast Sodium) 10 Mg Tablet 1 Tab PO HS PRN Ondansetron Odt (Ondansetron) 4 Mg Tab.rapdis 1 Tab PO PRN Q6-8HRS PRN Lantus Solostar (Insulin Glargine,Hum.rec.anlog) 100 Unit/1 Ml Insuln.pen 11 Unit SQ QHS Humalog (Insulin Lispro) 100 Unit/1 Ml Cartridge 22 Unit SQ TIDWMEALS Cozaar (Losartan Potassium) 100 Mg Tablet 100 Mg PO HS Carvedilol 25 Mg Tablet 25 Mg PO BIDWMEALS Atorvastatin Calcium 40 Mg Tablet 40 Mg PO HS Amlodipine Besylate 10 Mg Tablet 10 Mg PO DAILY Allergies Allergies: Coded Allergies: lamotrigine (Verified Allergy, Severe, HIVES, SHORTNESS OF BREATH, 08/27/19) ROS Review of System NOT RELIABLE WITH CONFUSION Physical Exam General: Alert, Cooperative, No acute distress HEENT: Atraumatic, PERRLA Lungs: Clear to auscultation, Normal air movement Heart: Regular rate Abdomen: Normal bowel sounds, Soft, No tenderness Extremities: No cyanosis Skin: No breakdown Neuro: Other (NO ASYMMETY, CONFUSED) Psych/Mental Status: Other (FLAT AFFECT) MUSCULOSKELETAL: No joint tenderness, No deformity Vitals VITALS Vital Signs Date Time Temp Pulse Resp B/P (MAP) Pulse Ox O2 Delivery O2 Flow Rate FiO2 09/19/19 11:00 98.3 86 18 101/54 (70) 96 Nasal Cannula 2.0 98.3 Labs Labs Laboratory Tests Test 09/18/19 13:46 09/18/19 13:55 09/18/19 14:24 09/18/19 15:30 Glucose (Fingerstick) 54 mg/dL (70-99) 101 mg/dL (70-99) White Blood Count 18.6 x10^3/uL (4.0-11.0) Red Blood Count 3.45 x10^6/uL (4.30-5.70) Hemoglobin 10.3 g/dL (13.0-17.5) Hematocrit 32.5 % (39.0-53.0) Mean Corpuscular Volume 94 fL (79-100) Mean Corpuscular Hemoglobin 30 pg (25-35) Mean Corpuscular Hemoglobin Concent 32 g/dL (31-37) Red Cell Distribution Width 18.6 % (11.5-14.5) Platelet Count 330 x10^3/uL (140-400) Neutrophils (%) (Auto) 92 % (31-73) Lymphocytes (%) (Auto) 2 % (24-48) Monocytes (%) (Auto) 5 % (0-9) Eosinophils (%) (Auto) 0 % (0-3) Basophils (%) (Auto) 1 % (0-3) Neutrophils # (Auto) 17.1 x10^3/uL (1.8-7.7) Lymphocytes # (Auto) 0.3 x10^3/uL (1.0-4.8) Monocytes # (Auto) 1.0 x10^3/uL (0.0-1.1) Eosinophils # (Auto) 0.0 x10^3/uL (0.0-0.7) Basophils # (Auto) 0.1 x10^3/uL (0.0-0.2) Sodium Level 134 mmol/L (136-145) Potassium Level 3.6 mmol/L (3.5-5.1) Chloride Level 94 mmol/L (98-107) Carbon Dioxide Level 27 mmol/L (21-32) Anion Gap 13 (6-14) Blood Urea Nitrogen 69 mg/dL (8-26) Creatinine 7.8 mg/dL (0.7-1.3) Estimated GFR (Cockcroft-Gault) 7.3 BUN/Creatinine Ratio 9 (6-20) Glucose Level 65 mg/dL (70-99) Lactic Acid Level 1.2 mmol/L (0.4-2.0) Calcium Level 7.8 mg/dL (8.5-10.1) Magnesium Level 1.6 mg/dL (1.8-2.4) Total Bilirubin 0.3 mg/dL (0.2-1.0) Aspartate Amino Transf (AST/SGOT) 22 U/L (15-37) Alanine Aminotransferase (ALT/SGPT) 8 U/L (16-63) Alkaline Phosphatase 123 U/L (46-116) Creatine Kinase 195 U/L (39-308) Creatine Kinase MB (Mass) 4.6 ng/mL (0.0-3.6) Creatine Kinase MB Relative Index 2.4 % (0-4) Troponin I Quantitative 0.039 ng/mL (0.000-0.055) Total Protein 4.8 g/dL (6.4-8.2) Albumin 1.2 g/dL (3.4-5.0) Albumin/Globulin Ratio 0.3 (1.0-1.7) Ammonia < 10 mcmol/L (11-34) Test 09/18/19 15:41 09/18/19 17:11 09/18/19 17:47 09/18/19 21:09 Glucose (Fingerstick) 50 mg/dL (70-99) 58 mg/dL (70-99) 102 mg/dL (70-99) 46 mg/dL (70-99) Test 09/18/19 23:29 09/19/19 03:25 09/19/19 08:22 09/19/19 11:09 Glucose (Fingerstick) 114 mg/dL (70-99) 105 mg/dL (70-99) 143 mg/dL (70-99) White Blood Count 15.9 x10^3/uL (4.0-11.0) Red Blood Count 3.38 x10^6/uL (4.30-5.70) Hemoglobin 10.1 g/dL (13.0-17.5) Hematocrit 31.9 % (39.0-53.0) Mean Corpuscular Volume 94 fL (79-100) Mean Corpuscular Hemoglobin 30 pg (25-35) Mean Corpuscular Hemoglobin Concent 32 g/dL (31-37) Red Cell Distribution Width 18.3 % (11.5-14.5) Platelet Count 326 x10^3/uL (140-400) Neutrophils (%) (Auto) 88 % (31-73) Lymphocytes (%) (Auto) 5 % (24-48) Monocytes (%) (Auto) 7 % (0-9) Eosinophils (%) (Auto) 0 % (0-3) Basophils (%) (Auto) 0 % (0-3) Neutrophils # (Auto) 14.0 x10^3/uL (1.8-7.7) Lymphocytes # (Auto) 0.7 x10^3/uL (1.0-4.8) Monocytes # (Auto) 1.0 x10^3/uL (0.0-1.1) Eosinophils # (Auto) 0.0 x10^3/uL (0.0-0.7) Basophils # (Auto) 0.1 x10^3/uL (0.0-0.2) Segmented Neutrophils % 92 % (35-66) Band Neutrophils % 2 % (0-9) Lymphocytes % 2 % (24-48) Monocytes % 2 % (0-10) Eosinophils % 2 % (0-5) Platelet Estimate Adequate (ADEQUATE) Erythrocyte Sedimentation Rate 120 (0-15) Sodium Level 133 mmol/L (136-145) Potassium Level 3.6 mmol/L (3.5-5.1) Chloride Level 93 mmol/L (98-107) Carbon Dioxide Level 25 mmol/L (21-32) Anion Gap 15 (6-14) Blood Urea Nitrogen 73 mg/dL (8-26) Creatinine 7.8 mg/dL (0.7-1.3) Estimated GFR (Cockcroft-Gault) 7.3 Glucose Level 96 mg/dL (70-99) Calcium Level 8.3 mg/dL (8.5-10.1) Phosphorus Level 9.2 mg/dL (2.6-4.7) Albumin 1.2 g/dL (3.4-5.0) Laboratory Tests Test 09/18/19 15:30 09/18/19 15:41 09/18/19 17:11 09/18/19 17:47 Ammonia < 10 mcmol/L (11-34) Glucose (Fingerstick) 50 mg/dL (70-99) 58 mg/dL (70-99) 102 mg/dL (70-99) Test 09/18/19 21:09 09/18/19 23:29 09/19/19 03:25 09/19/19 08:22 Glucose (Fingerstick) 46 mg/dL (70-99) 114 mg/dL (70-99) 105 mg/dL (70-99) White Blood Count 15.9 x10^3/uL (4.0-11.0) Red Blood Count 3.38 x10^6/uL (4.30-5.70) Hemoglobin 10.1 g/dL (13.0-17.5) Hematocrit 31.9 % (39.0-53.0) Mean Corpuscular Volume 94 fL (79-100) Mean Corpuscular Hemoglobin 30 pg (25-35) Mean Corpuscular Hemoglobin Concent 32 g/dL (31-37) Red Cell Distribution Width 18.3 % (11.5-14.5) Platelet Count 326 x10^3/uL (140-400) Neutrophils (%) (Auto) 88 % (31-73) Lymphocytes (%) (Auto) 5 % (24-48) Monocytes (%) (Auto) 7 % (0-9) Eosinophils (%) (Auto) 0 % (0-3) Basophils (%) (Auto) 0 % (0-3) Neutrophils # (Auto) 14.0 x10^3/uL (1.8-7.7) Lymphocytes # (Auto) 0.7 x10^3/uL (1.0-4.8) Monocytes # (Auto) 1.0 x10^3/uL (0.0-1.1) Eosinophils # (Auto) 0.0 x10^3/uL (0.0-0.7) Basophils # (Auto) 0.1 x10^3/uL (0.0-0.2) Segmented Neutrophils % 92 % (35-66) Band Neutrophils % 2 % (0-9) Lymphocytes % 2 % (24-48) Monocytes % 2 % (0-10) Eosinophils % 2 % (0-5) Platelet Estimate Adequate (ADEQUATE) Erythrocyte Sedimentation Rate 120 (0-15) Sodium Level 133 mmol/L (136-145) Potassium Level 3.6 mmol/L (3.5-5.1) Chloride Level 93 mmol/L (98-107) Carbon Dioxide Level 25 mmol/L (21-32) Anion Gap 15 (6-14) Blood Urea Nitrogen 73 mg/dL (8-26) Creatinine 7.8 mg/dL (0.7-1.3) Estimated GFR (Cockcroft-Gault) 7.3 Glucose Level 96 mg/dL (70-99) Calcium Level 8.3 mg/dL (8.5-10.1) Phosphorus Level 9.2 mg/dL (2.6-4.7) Albumin 1.2 g/dL (3.4-5.0) Test 09/19/19 11:09 Glucose (Fingerstick) 143 mg/dL (70-99) Assessment/Plan Assessment/Plan IMP HYPOGLYCEMIA DM II HTN ANEMIA LEUCOCYTOSIS PENILE CELLULITIS MALNUTRITION PLAN ANTIBIOTICS VAN WHEN NEEDED ARCHIE ASCENCIO MD Sep 19, 2019 15:25
[2019-09-19 15:48] VITALS: BP 118/42
[2019-09-19] MEDS: VANCOMYCIN PER PHARMACY MC PRN (15:57)
[2019-09-19 19:15] VITALS: BP 121/41
--- NOTE | 2019-09-19 20:07 | RAD ---
Left lower extremity venous doppler ultrasound Indication: Leg swelling Technique: Color Doppler, grayscale, and spectral waveform analysis is used to evaluate the left femoral and popliteal veins. Findings: No evidence of deep venous thrombosis. Normal response to augmentation, normal compressibility and normal phasicity is demonstrated. Visualized calf veins are patent. Impression: Negative for deep venous thrombosis Electronically signed by: Luis Hope MD (09/19/2019 8:05 PM) [facility]
[2019-09-19] MEDS: INSULIN GLARGINE SYRINGE. SQ SCH (21:00)
[2019-09-19] MEDS: LOSARTAN POTASSIUM 50 MG TABLET. PO SCH (21:00)
[2019-09-19] MEDS: TEMAZEPAM 7.5 MG CAPSULE PO PRN (21:49)
[2019-09-19] MEDS: TAMSULOSIN 0.4 MG CAP.ER.24H. PO SCH (21:49)
[2019-09-19 23:15] VITALS: BP 125/39
[2019-09-20 03:15] VITALS: BP 93/39
--- NOTE | 2019-09-20 07:22 | PDOC ---
[employer] PROGRESS NOTE Chief Complaint Chief Complaint 1. Leukocytosis, 2. Acute Encephalopathy. Improved likely from hypoglycemia. 3. Diabetes mellitus, poorly controlled. 4. Balanitis 5. Anemia of chronic disease. 6. End-stage renal disease, on peritoneal dialysis. 7. Peripheral vascular disease. History of Present Illness History of Present Illness 1220 patient seen and examined He still wants to leave but I explained he is on 3 antibiotics/antifungals Chart reviewed He is currently doing peritoneal dialysis Vitals/I&O Vitals/I&O: Vital Signs Date Time Temp Pulse Resp B/P (MAP) Pulse Ox O2 Delivery O2 Flow Rate FiO2 09/20/19 03:15 97.7 78 18 93/39 (57) 93 Room Air 97.7 09/19/19 19:55 2.0 I & O 09/19/19 09/19/19 09/20/19 15:00 23:00 07:00 Intake Total 800 ml 240 ml 400 ml Output Total 300 ml Balance 800 ml 240 ml 100 ml Physical Exam Physical Exam: GENERAL: alert awake male in nad HEENT: Normocephalic, atraumatic, anicteric. No thrush. NECK: No tenderness. Supple, no JVD, no lymphadenopathy. LUNGS: Clear. HEART: S1, S2. ABDOMEN: Soft. PD catheter in place, nontender, nondistended. GENITOURINARY: Penile swelling, redness.unchanged from last admission, not worsening, No purulence noted EXTREMITIES: 1-2+ pedal edema. SKIN: Dry skin. No cyanosis. NEUROLOGIC: nonfocal grossly PSYCHIATRICaxox3 male in nad General: Alert, Cooperative, No acute distress Heart: Regular rate Lungs: Clear, Other Abdomen: Normal bowel sounds, Soft, No tenderness Extremities: No cyanosis Skin: No breakdown Labs Labs: Laboratory Tests Test 09/19/19 08:22 09/19/19 11:09 09/19/19 16:44 09/19/19 21:18 Glucose (Fingerstick) 105 mg/dL (70-99) 143 mg/dL (70-99) 213 mg/dL (70-99) 236 mg/dL (70-99) Test 09/19/19 21:52 Glucose (Fingerstick) 261 mg/dL (70-99) Assessment and Plan Assessmemt and Plan Problems Medical Problems: (1) Hypocalcemia Status: Acute (2) Hypomagnesemia Status: Acute (3) Leukocytosis Status: Acute 1. Leukocytosis, 2. Acute Encephalopathy. Improved likely from hypoglycemia. 3. Diabetes mellitus, poorly controlled. 4. Balanitis 5. Anemia of chronic disease. 6. End-stage renal disease, on peritoneal dialysis. 7. Peripheral vascular disease. Plan Appreciate ID input and we'll continue IV Mycamine vancomycin and doxycycline Continue peritoneal dialysis Home meds DVT prophylaxis Trend labs Full code He probably eventually needs to have a circumcision but we do not have urology coverage at this hospital he will follow at eventually after discharge Comment Review of Relevant I have reviewed the following items alex (where applicable) has been applied. Medications: Current Medications Medications (Trade) Dose Ordered Sig/Rosalino Route PRN Reason Start Time Stop Time Status Last Admin Dose Admin Ceftriaxone Sodium (Rocephin) 1 gm Q24H IVP 09/19/19 09:00 09/19/19 09:47 Amlodipine Besylate (Norvasc) 10 mg DAILY PO 09/19/19 09:00 09/19/19 09:42 Aspirin (Ecotrin) 81 mg DAILYWBKFT PO 09/19/19 08:00 09/19/19 10:19 Furosemide (Lasix) 80 mg BID94 PO 09/19/19 09:00 09/19/19 14:41 Calcitriol (Rocaltrol) 0.5 mcg DAILY PO 09/19/19 09:00 09/19/19 09:43 Carvedilol (Coreg) 25 mg BIDWMEALS PO 09/19/19 08:00 09/19/19 17:15 Pantoprazole Sodium (Protonix) 40 mg DAILYAC PO 09/19/19 07:30 09/19/19 09:42 Fluconazole (Diflucan) 100 mg DAILY PO 09/19/19 09:00 09/19/19 09:42 Insulin Human Lispro (HumaLOG) 10 units TIDWMEALS SQ 09/19/19 13:15 09/19/19 17:09 Micafungin Sodium 100 mg/Dextrose 100 ml @ 100 mls/hr Q24H IV 09/19/19 15:00 09/19/19 14:41 Doxycycline Hyclate (Vibra-Tab) 100 mg BID PO 09/19/19 14:00 09/19/19 21:58 KRISTEN [place] III DO Sep 20, 2019 07:22
[2019-09-20 07:30] VITALS: BP 94/26
[2019-09-20] MEDS: CARVEDILOL 12.5 MG TABLET. PO SCH ×2 (08:00→16:38)
[2019-09-20] MEDS: INSULIN LISPRO 300 UNITS/3 ML VIAL. SQ SCH ×6 (08:00→17:00)
[2019-09-20] MEDS: FUROSEMIDE 80 MG TABLET. PO SCH ×2 (08:55→16:32)
[2019-09-20] MEDS: PANTOPRAZOLE 40 MG TABLET.DR. PO SCH (08:56)
[2019-09-20] MEDS: ASPIRIN ENTERIC COATED 81 MG TABLET.DR. PO SCH (08:56)
[2019-09-20] MEDS: LACTOBACILLUS RHAMNOSUS GG 1 CAPSULE. PO SCH ×2 (08:56→21:23)
[2019-09-20] MEDS: CALCITRIOL 0.25 MCG CAPSULE. PO SCH (08:57)
[2019-09-20] MEDS: FLUCONAZOLE 100 MG TABLET. PO SCH (08:57)
[2019-09-20] MEDS: DOXYCYCLINE HYCLATE 100 MG TABLET PO SCH ×2 (08:57→21:23)
[2019-09-20] MEDS: amLODIPine BESYLATE 10 MG TABLET PO SCH (08:58)
[2019-09-20 09:32] LABS: CALCIUM 7.8 mg/dL (8.5-10.1); CREATININE 7.9 mg/dL (0.7-1.3); GFR 7.2; POTASSIUM 4.1 mmol/L (3.5-5.1)
[2019-09-20] MEDS: cefTRIAXone IV Push 1 GM VIAL. IVP SCH (09:54)
[2019-09-20 11:00] VITALS: BP 90/30
--- NOTE | 2019-09-20 11:43 | PDOC ---
Infectious Disease Note Subjective: Subjective Pt says wants to go home penile swelling remains unchanged somewhat confused no f/c/n/v/d d/w rn Vital Signs: Vital Signs Vital Signs Date Time Temp Pulse Resp B/P (MAP) Pulse Ox O2 Delivery O2 Flow Rate FiO2 09/20/19 08:58 75 94/26 09/20/19 08:00 Nasal Cannula 2.0 09/20/19 07:30 97.5 19 82 97.5 Physical Exam: PHYSICAL EXAM GENERAL: alert awake male in nad HEENT: Normocephalic, atraumatic, anicteric. No thrush. NECK: No tenderness. Supple, no JVD, no lymphadenopathy. LUNGS: Clear. HEART: S1, S2. ABDOMEN: Soft. PD catheter in place, nontender, nondistended. GENITOURINARY: Penile swelling, redness.unchanged from last admission, not worsening, No purulence noted EXTREMITIES: 1-2+ pedal edema. SKIN: Dry skin. No cyanosis. NEUROLOGIC: nonfocal grossly PSYCHIATRICaxox3 male in nad Medications: Inpatient Meds: Current Medications Medications (Trade) Dose Ordered Sig/Rosalino Start Time Stop Time Status Last Admin Dose Admin Acetaminophen (Tylenol) 650 mg PRN Q4HRS PRN 09/18/19 15:45 09/19/19 15:44 DC 09/19/19 12:05 650 MG Acetaminophen/ Hydrocodone Bitart (Lortab 5/325) 1 tab PRN Q4HRS PRN 09/18/19 15:45 09/20/19 03:59 1 TAB Amlodipine Besylate (Norvasc) 10 mg DAILY 09/19/19 09:00 09/19/19 09:42 10 MG Aspirin (Ecotrin) 81 mg DAILYWBKFT 09/19/19 08:00 09/20/19 08:56 81 MG Atorvastatin Calcium (Lipitor) 40 mg HS 09/18/19 21:00 09/19/19 21:49 40 MG Calcitriol (Rocaltrol) 0.5 mcg DAILY 09/19/19 09:00 09/20/19 08:57 0.5 MCG Calcium Carbonate/ Glycine (Tums) 500 mg PRN AFTMEALHC PRN 09/18/19 15:45 Carvedilol (Coreg) 25 mg BIDWMEALS 09/19/19 08:00 09/19/19 17:15 25 MG Ceftriaxone Sodium (Rocephin) 1 gm Q24H 09/19/19 09:00 09/20/19 09:54 1 GM Dextrose (Dextrose 50%-Water Syringe) 25 gm 1X ONCE 09/18/19 17:30 09/18/19 18:36 DC 09/18/19 17:27 25 GM Dextrose (Iv Dextrose 5%) 250 ml PRN Q15MIN PRN 09/18/19 15:45 Doxycycline Hyclate (Vibra-Tab) 100 mg BID 09/19/19 14:00 09/20/19 08:57 100 MG Fluconazole (Diflucan) 100 mg DAILY 09/19/19 09:00 09/20/19 08:57 100 MG Furosemide (Lasix) 80 mg BID94 09/19/19 09:00 09/20/19 08:55 80 MG Insulin Glargine (Lantus Syringe) 11 unit QHS 09/18/19 21:00 Insulin Human Lispro (HumaLOG) 10 units TIDWMEALS 09/19/19 13:15 09/20/19 08:00 10 UNITS Lactobacillus Rhamnosus (Culturelle) 1 cap BID 09/18/19 21:00 09/20/19 08:56 1 CAP Losartan Potassium (Cozaar) 100 mg HS 09/18/19 21:00 Micafungin Sodium 100 mg/Dextrose 100 ml @ 100 mls/hr Q24H 09/19/19 15:00 09/19/19 14:41 100 MLS/HR Montelukast Sodium (Singulair) 10 mg PRN QHS PRN 09/18/19 15:45 Non-Formulary Medication (Glucagon,Human Recombinant (Glucagen)) 1 % PRN PRN 09/18/19 15:45 UNV Ondansetron HCl (Zofran Odt) 4 mg PRN QID PRN 09/18/19 15:45 Ondansetron HCl (Zofran) 4 mg PRN Q8HRS PRN 09/18/19 15:45 09/19/19 15:44 DC Pantoprazole Sodium (PROTONIX VIAL for IV PUSH) 80 mg 1X ONCE 09/18/19 15:45 09/18/19 15:46 Cancel Pantoprazole Sodium (Protonix) 40 mg DAILYAC 09/19/19 07:30 09/20/19 08:56 40 MG Pantoprazole Sodium 80 mg/ Sodium Chloride 100 ml @ 10 mls/hr Q10H 09/18/19 15:45 Cancel Piperacillin Sod/ Tazobactam Sod 3.375 gm/Sodium Chloride 50 ml @ 100 mls/hr 1X ONCE 09/18/19 15:30 09/18/19 15:59 DC 09/18/19 15:52 100 MLS/HR Tamsulosin HCl (Flomax) 0.4 mg HS 09/18/19 21:00 09/19/19 21:49 0.4 MG Temazepam (Restoril) 7.5 mg PRN QHS PRN 09/18/19 15:45 09/19/19 21:49 7.5 MG Tramadol HCl (Ultram) 50 mg PRN Q6HRS PRN 09/18/19 15:45 09/19/19 20:02 50 MG Vancomycin HCl (Vanco Per Pharmacy) 1 each PRN DAILY PRN 09/18/19 15:30 09/19/19 15:57 1 EACH Vancomycin HCl (Vancomycin Random Level) 1 each 1X ONCE 09/21/19 09:00 09/21/19 09:01 Vancomycin HCl 1.75 gm/Sodium Chloride 500 ml @ 250 mls/hr 1X ONCE 09/18/19 15:45 09/18/19 17:44 DC 09/18/19 17:05 250 MLS/HR Labs: Lab Laboratory Tests Test 09/19/19 16:44 09/19/19 21:18 09/19/19 21:52 09/20/19 07:15 Glucose (Fingerstick) 213 mg/dL (70-99) 236 mg/dL (70-99) 261 mg/dL (70-99) Sodium Level 132 mmol/L (136-145) Potassium Level 4.1 mmol/L (3.5-5.1) Chloride Level 93 mmol/L (98-107) Carbon Dioxide Level 25 mmol/L (21-32) Anion Gap 14 (6-14) Blood Urea Nitrogen 64 mg/dL (8-26) Creatinine 7.9 mg/dL (0.7-1.3) Estimated GFR (Cockcroft-Gault) 7.2 Glucose Level 401 mg/dL (70-99) Calcium Level 7.8 mg/dL (8.5-10.1) Test 09/20/19 08:08 09/20/19 09:45 Glucose (Fingerstick) 376 mg/dL (70-99) 387 mg/dL (70-99) Objective: Assessment: 1. Leukocytosis, 2. Acute Encephalopathy. Improving likely from hypoglycemia. 3. Diabetes mellitus, poorly controlled. 4. Balanitis 5. Anemia of chronic disease. 6. End-stage renal disease, on peritoneal dialysis. 7. Peripheral vascular disease. Plan: Plan of Care Cont rocephin/micafungin/doxycycline needs urology,not available at this center Continue supportive care. Discussed with Nursing staff SABRINA STACY MD Sep 20, 2019 11:43
--- NOTE | 2019-09-20 13:02 | PDOC ---
Renal-Progress Notes Subjective Notes Notes NO NEW COMPLAINTS History of Present Illness Hx of present illness STABLE Vitals Vitals Vital Signs Date Time Temp Pulse Resp B/P (MAP) Pulse Ox O2 Delivery O2 Flow Rate FiO2 09/20/19 11:00 97.6 74 18 90/30 (50) 95 Room Air 97.6 09/20/19 08:00 2.0 Weight Weight [ ] I.O. Intake and Output Intake and Output 09/20/19 07:00 Intake Total 1440 ml Output Total 300 ml Balance 1140 ml Intake Oral 1440 ml Output Urine Total 300 ml # Bowel Movements 1 Labs Labs Laboratory Tests Test 09/19/19 16:44 09/19/19 21:18 09/19/19 21:52 09/20/19 07:15 Glucose (Fingerstick) 213 mg/dL (70-99) 236 mg/dL (70-99) 261 mg/dL (70-99) Sodium Level 132 mmol/L (136-145) Potassium Level 4.1 mmol/L (3.5-5.1) Chloride Level 93 mmol/L (98-107) Carbon Dioxide Level 25 mmol/L (21-32) Anion Gap 14 (6-14) Blood Urea Nitrogen 64 mg/dL (8-26) Creatinine 7.9 mg/dL (0.7-1.3) Estimated GFR (Cockcroft-Gault) 7.2 Glucose Level 401 mg/dL (70-99) Calcium Level 7.8 mg/dL (8.5-10.1) Test 09/20/19 08:08 09/20/19 09:45 09/20/19 12:21 Glucose (Fingerstick) 376 mg/dL (70-99) 387 mg/dL (70-99) 238 mg/dL (70-99) Micro Micro Microbiology 09/18/19 Blood Culture - Preliminary, Resulted NO GROWTH AFTER 1 DAY Review of Systems Constitutional: yes: weakness, alert Ears/Nose/Throat: Yes: no symptom reported Eyes: Yes: no symptom reported Pulmonary: Yes no symptom reported Cardiovascular: Yes no symptom reported Gastrointestional: Yes: no symptom reported Musculoskeletal: Yes: no symptom reported Skin: Yes no symptom reported Psychiatric/Neurological: Yes: no symptom reported Endocrine: Yes: no symptom reported Physical Exam General Appearance: no apparent distress Skin: warm Respiratory: bilateral CTA Heart: S1S2 Abdomen: soft, bowel sounds present Genitourinary: bladder flat Extremities: pulses present Neurology: alert, confused Musculoskeletal: Osteoarthritis Assessment Assessment IMP ENCEPHALOPATHY HYPOGLYCEMIA DM II HTN ANEMIA LEUCOCYTOSIS PENILE CELLULITIS MALNUTRITION PLAN ANTIBIOTICS VAN WHEN NEEDED APD ARCHIE HERNANDEZ MD Sep 20, 2019 13:02
[2019-09-20 15:00] VITALS: BP 115/23
[2019-09-20] MEDS: MICAFUNGIN 100 MG in IV DEXTROSE 5% 100ML 100 ML IV SCH (16:31)
--- NOTE | 2019-09-20 17:55 | NUR ---
Wound Care Pt seen for wound care consultation re: BLE wounds. Legs assessed, pt has multiple scabs and scratches, no open areas noted. Pt did state he had a wound on his penis, that has been present for over a week. Pt allowed assessment, head of penis is bright red, swollen, with a greyish-yellow dry eschar. Recommendation of Vitamin A&D ointment to help soften eschar, BID, pt v/u and is aware he can obtain over the counter. Instructed pt to f/u in [facility] after d/c, if he wishes. Pt declined to allow WCRNs assess backside, no other wounds noted on skin inspection.
[2019-09-20] MEDS: VANCOMYCIN PER PHARMACY MC PRN (18:19)
[2019-09-20 19:15] VITALS: BP 126/41
[2019-09-20] MEDS: LOSARTAN POTASSIUM 50 MG TABLET. PO SCH (21:00)
[2019-09-20] MEDS: TAMSULOSIN 0.4 MG CAP.ER.24H. PO SCH (21:23)
[2019-09-20] MEDS: INSULIN GLARGINE SYRINGE. SQ SCH (21:28)
[2019-09-20 23:15] VITALS: BP 119/34
[2019-09-21] MEDS ORDERED: VITS A & D/LANOLIN TOPICAL OINTMENT 42GM TUBE. TP PRN
[2019-09-21 03:15] VITALS: BP 132/71
[2019-09-21 08:00] VITALS: BP 115/33
[2019-09-21] MEDS: INSULIN LISPRO 300 UNITS/3 ML VIAL. SQ SCH ×4 (08:00→12:00)
[2019-09-21] MEDS ORDERED: VANCOMYCIN RANDOM LEVEL. MC ONE (09:00)
[2019-09-21] MEDS: cefTRIAXone IV Push 1 GM VIAL. IVP SCH (09:31)
[2019-09-21] MEDS: LACTOBACILLUS RHAMNOSUS GG 1 CAPSULE. PO SCH (09:32)
[2019-09-21] MEDS: ASPIRIN ENTERIC COATED 81 MG TABLET.DR. PO SCH (09:32)
[2019-09-21] MEDS: FLUCONAZOLE 100 MG TABLET. PO SCH (09:33)
[2019-09-21] MEDS: CALCITRIOL 0.25 MCG CAPSULE. PO SCH (09:33)
[2019-09-21] MEDS: FUROSEMIDE 80 MG TABLET. PO SCH (09:33)
[2019-09-21] MEDS: amLODIPine BESYLATE 10 MG TABLET PO SCH (09:34)
[2019-09-21] MEDS: DOXYCYCLINE HYCLATE 100 MG TABLET PO SCH (09:34)
[2019-09-21] MEDS: PANTOPRAZOLE 40 MG TABLET.DR. PO SCH (09:34)
[2019-09-21] MEDS: CARVEDILOL 12.5 MG TABLET. PO SCH (09:35)
[2019-09-21 11:00] VITALS: BP 93/71
--- NOTE | 2019-09-21 11:36 | NUR ---
AMBAR following for discharge planning. Chart reviewed, discussed with RN. Pt is from home with spouse. Normally does PD dialysis. Pt discharging with self care today.
--- NOTE | 2019-09-21 12:17 | PDOC ---
[employer] PROGRESS NOTE Chief Complaint Chief Complaint 1. Leukocytosis, 2. Acute Encephalopathy. Improved likely from hypoglycemia. 3. Diabetes mellitus, poorly controlled. 4. Balanitis 5. Anemia of chronic disease. 6. End-stage renal disease, on peritoneal dialysis. 7. Peripheral vascular disease. History of Present Illness History of Present Illness 1320 Patient seen and examined He insists on going home Chart reviewed Discussed with RN I left prescriptions for Diflucan Augmentin and doxycycline Told him he needs to go to and see a urologist Discharge orders put in 1220 patient seen and examined He still wants to leave but I explained he is on 3 antibiotics/antifungals Chart reviewed He is currently doing peritoneal dialysis Vitals/I&O Vitals/I&O: Vital Signs Date Time Temp Pulse Resp B/P (MAP) Pulse Ox O2 Delivery O2 Flow Rate FiO2 09/21/19 11:00 97.8 84 14 93/71 (78) 96 Nasal Cannula 97.8 09/21/19 08:00 2.0 I & O 09/20/19 09/20/19 09/21/19 15:00 23:00 07:00 Intake Total 200 ml 570 ml Balance 200 ml 570 ml Physical Exam Physical Exam: GENERAL: alert awake male in [facility] HEENT: Normocephalic, atraumatic, anicteric. No thrush. NECK: No tenderness. Supple, no JVD, no lymphadenopathy. LUNGS: Clear. HEART: S1, S2. ABDOMEN: Soft. PD catheter in place, nontender, nondistended. GENITOURINARY: Penile swelling, redness.unchanged from last admission, not worsening, No purulence noted EXTREMITIES: 1-2+ pedal edema. SKIN: Dry skin. No cyanosis. NEUROLOGIC: nonfocal grossly PSYCHIATRICaxox3 male in [facility] General: Alert, Cooperative, No acute distress Heart: Regular rate Lungs: Clear, Other Abdomen: Normal bowel sounds, Soft, No tenderness Extremities: No cyanosis Skin: No breakdown Labs Labs: Laboratory Tests Test 09/20/19 12:21 09/20/19 17:01 09/20/19 21:01 09/21/19 03:33 Glucose (Fingerstick) 238 mg/dL (70-99) 79 mg/dL (70-99) 161 mg/dL (70-99) 155 mg/dL (70-99) Test 09/21/19 09:05 09/21/19 09:06 Random Vancomycin Level 25.0 mcg/mL Glucose (Fingerstick) 78 mg/dL (70-99) Assessment and Plan Assessmemt and Plan Problems Medical Problems: (1) Hypocalcemia Status: Acute (2) Hypomagnesemia Status: Acute (3) Leukocytosis Status: Acute Discharge Comment Review of Relevant I have reviewed the following items alex (where applicable) has been applied. KRISTEN [place] III DO Sep 21, 2019 12:17
--- NOTE | 2019-09-21 12:29 | PDOC ---
Infectious Disease Note Subjective: Subjective Pt says wants to go home no other complaints no f/c/n/v/d d/w rn Vital Signs: Vital Signs Vital Signs Date Time Temp Pulse Resp B/P (MAP) Pulse Ox O2 Delivery O2 Flow Rate FiO2 09/21/19 11:00 97.8 84 14 93/71 (78) 96 Nasal Cannula 97.8 09/21/19 08:00 2.0 Physical Exam: PHYSICAL EXAM GENERAL: alert awake male in [place] HEENT: Normocephalic, atraumatic, anicteric. No thrush. NECK: No tenderness. Supple, no JVD, no lymphadenopathy. LUNGS: Clear. HEART: S1, S2. ABDOMEN: Soft. PD catheter in place, nontender, nondistended. GENITOURINARY: Penile swelling, redness.unchanged from last admission, not worsening, No purulence noted EXTREMITIES: 1-2+ pedal edema. SKIN: Dry skin. No cyanosis. NEUROLOGIC: nonfocal grossly PSYCHIATRICaxox3 male in [place] Medications: Inpatient Meds: Current Medications Medications (Trade) Dose Ordered Sig/Rosalino Start Time Stop Time Status Last Admin Dose Admin Acetaminophen (Tylenol) 650 mg PRN Q4HRS PRN 09/18/19 15:45 09/19/19 15:44 DC 09/19/19 12:05 650 MG Acetaminophen/ Hydrocodone Bitart (Lortab 5/325) 1 tab PRN Q4HRS PRN 09/18/19 15:45 09/20/19 03:59 1 TAB Amlodipine Besylate (Norvasc) 10 mg DAILY 09/19/19 09:00 09/21/19 09:34 10 MG Aspirin (Ecotrin) 81 mg DAILYWBKFT 09/19/19 08:00 09/21/19 09:32 81 MG Atorvastatin Calcium (Lipitor) 40 mg HS 09/18/19 21:00 09/19/19 21:49 40 MG Calcitriol (Rocaltrol) 0.5 mcg DAILY 09/19/19 09:00 09/21/19 09:33 0.5 MCG Calcium Carbonate/ Glycine (Tums) 500 mg PRN AFTMEALHC PRN 09/18/19 15:45 Carvedilol (Coreg) 25 mg BIDWMEALS 09/19/19 08:00 09/21/19 09:35 25 MG Ceftriaxone Sodium (Rocephin) 1 gm Q24H 09/19/19 09:00 09/21/19 09:31 1 GM Dextrose (Dextrose 50%-Water Syringe) 25 gm 1X ONCE 09/18/19 17:30 09/18/19 18:36 DC 09/18/19 17:27 25 GM Dextrose (Iv Dextrose 5%) 250 ml PRN Q15MIN PRN 09/18/19 15:45 Doxycycline Hyclate (Vibra-Tab) 100 mg BID 09/19/19 14:00 09/21/19 09:34 100 MG Fluconazole (Diflucan) 100 mg DAILY 09/19/19 09:00 09/21/19 09:33 100 MG Furosemide (Lasix) 80 mg BID94 09/19/19 09:00 09/21/19 09:33 80 MG Insulin Glargine (Lantus Syringe) 11 unit QHS 09/18/19 21:00 09/20/19 21:28 11 UNIT Insulin Human Lispro (HumaLOG) 10 units TIDWMEALS 09/19/19 13:15 09/20/19 12:29 10 UNITS Lactobacillus Rhamnosus (Culturelle) 1 cap BID 09/18/19 21:00 09/21/19 09:32 1 CAP Losartan Potassium (Cozaar) 100 mg HS 09/18/19 21:00 Micafungin Sodium 100 mg/Dextrose 100 ml @ 100 mls/hr Q24H 09/19/19 15:00 09/20/19 16:31 100 MLS/HR Montelukast Sodium (Singulair) 10 mg PRN QHS PRN 09/18/19 15:45 Non-Formulary Medication (Glucagon,Human Recombinant (Glucagen)) 1 % PRN PRN 09/18/19 15:45 UNV Ondansetron HCl (Zofran Odt) 4 mg PRN QID PRN 09/18/19 15:45 Ondansetron HCl (Zofran) 4 mg PRN Q8HRS PRN 09/18/19 15:45 09/19/19 15:44 DC Pantoprazole Sodium (PROTONIX VIAL for IV PUSH) 80 mg 1X ONCE 09/18/19 15:45 09/18/19 15:46 Cancel Pantoprazole Sodium (Protonix) 40 mg DAILYAC 09/19/19 07:30 09/21/19 09:34 40 MG Pantoprazole Sodium 80 mg/ Sodium Chloride 100 ml @ 10 mls/hr Q10H 09/18/19 15:45 Cancel Piperacillin Sod/ Tazobactam Sod 3.375 gm/Sodium Chloride 50 ml @ 100 mls/hr 1X ONCE 09/18/19 15:30 09/18/19 15:59 DC 09/18/19 15:52 100 MLS/HR Tamsulosin HCl (Flomax) 0.4 mg HS 09/18/19 21:00 09/20/19 21:23 0.4 MG Temazepam (Restoril) 7.5 mg PRN QHS PRN 09/18/19 15:45 09/19/19 21:49 7.5 MG Tramadol HCl (Ultram) 50 mg PRN Q6HRS PRN 09/18/19 15:45 09/19/19 20:02 50 MG Vancomycin HCl (Vanco Per Pharmacy) 1 each PRN DAILY PRN 09/18/19 15:30 09/20/19 18:19 1 EACH Vancomycin HCl (Vancomycin Random Level) 1 each 1X ONCE 09/21/19 09:00 09/21/19 09:01 DC Vancomycin HCl 1.75 gm/Sodium Chloride 500 ml @ 250 mls/hr 1X ONCE 09/18/19 15:45 09/18/19 17:44 DC 09/18/19 17:05 250 MLS/HR Vitamin A/Vitamin D (Vitamin A & D Ointment) 1 lucero PRN QID PRN 09/21/19 00:00 Labs: Lab Laboratory Tests Test 09/20/19 17:01 09/20/19 21:01 09/21/19 03:33 09/21/19 09:05 Glucose (Fingerstick) 79 mg/dL (70-99) 161 mg/dL (70-99) 155 mg/dL (70-99) Random Vancomycin Level 25.0 mcg/mL Test 09/21/19 09:06 Glucose (Fingerstick) 78 mg/dL (70-99) Objective: Assessment: 1. Leukocytosis, 2. Acute Encephalopathy. Improving likely from hypoglycemia. 3. Diabetes mellitus, poorly controlled. 4. Balanitis 5. Anemia of chronic disease. 6. End-stage renal disease, on peritoneal dialysis. 7. Peripheral vascular disease. Plan: Plan of Care OK to dc on augmentin, doxycycline and fluconazole needs urology,not available at this center Continue supportive care. Discussed with Nursing staff SABRINA STACY MD Sep 21, 2019 12:29
--- NOTE | 2019-09-21 12:51 | NUR ---
Discharge Note: DUANE IQBAL [address] Discharge instructions and discharge home medications reviewed with Patient and a copy given. All questions have been answered and understanding verbalized. The following instructions and handouts were given: followup instructions were given. Discontinued lines and drains: 20 guage catheter tip intact. Patient tolerated well. Patient discharged to home with self care via private vehicle. Addendum: 09/21/19 at 1445 by GERRY GORMAN RN RN Discharge Note: DUANE [facility] [address] Discharge instructions and discharge home medications reviewed with Patient and a copy given. All questions have been answered and understanding verbalized. The following instructions and handouts were given: followup instructions were given. Discontinued lines and drains: 20 guage catheter tip intact. Patient tolerated well. patient refused glucose check, medication and wound pictures prior to departure. Patient took his tele monitor off and was dressed before receiving paperwork. Patient discharged to home with self care via private vehicle.
--- NOTE | 2019-09-21 12:58 | PDOC ---
Renal-Progress Notes Subjective Notes Notes NO NEW COMPLAINTS History of Present Illness Hx of present illness STABLE Vitals Vitals Vital Signs Date Time Temp Pulse Resp B/P (MAP) Pulse Ox O2 Delivery O2 Flow Rate FiO2 09/21/19 11:00 97.8 84 14 93/71 (78) 96 Nasal Cannula 97.8 09/21/19 08:00 2.0 Weight Weight [ ] I.O. Intake and Output Intake and Output 09/21/19 07:00 Intake Total 770 ml Balance 770 ml Intake Oral 770 ml # Voids 1 Labs Labs Laboratory Tests Test 09/20/19 17:01 09/20/19 21:01 09/21/19 03:33 09/21/19 09:05 Glucose (Fingerstick) 79 mg/dL (70-99) 161 mg/dL (70-99) 155 mg/dL (70-99) Random Vancomycin Level 25.0 mcg/mL Test 09/21/19 09:06 Glucose (Fingerstick) 78 mg/dL (70-99) Micro Micro Microbiology 09/18/19 Blood Culture - Preliminary, Resulted NO GROWTH AFTER 2 DAYS Review of Systems Constitutional: yes: weakness, alert Ears/Nose/Throat: Yes: no symptom reported Eyes: Yes: no symptom reported Pulmonary: Yes no symptom reported Cardiovascular: Yes no symptom reported Gastrointestional: Yes: no symptom reported Musculoskeletal: Yes: no symptom reported Skin: Yes no symptom reported Psychiatric/Neurological: Yes: no symptom reported Endocrine: Yes: no symptom reported Physical Exam General Appearance: no apparent distress Skin: warm Respiratory: bilateral CTA Heart: S1S2 Abdomen: soft, bowel sounds present Genitourinary: bladder flat Extremities: pulses present Neurology: alert, confused Musculoskeletal: Osteoarthritis Assessment Assessment IMP ENCEPHALOPATHY HYPOGLYCEMIA DM II HTN ANEMIA LEUCOCYTOSIS PENILE CELLULITIS MALNUTRITION PLAN ANTIBIOTICS D/C PLANS NOTED PT TO DO APD AT HOME ARCHIE HERNANDEZ MD Sep 21, 2019 12:58
--- NOTE | 2019-09-22 09:14 | DS ---
DATE OF DISCHARGE: 09/21/2019 ADMISSION DIAGNOSES: Hypoglycemia and balanitis with penile discharge and swelling, leukocytosis, end-stage renal disease, on peritoneal dialysis. DISCHARGE DIAGNOSIS: Resolving hypoglycemia. HOSPITAL COURSE: The patient is a pleasant 53-year-old male who basically developed hypoglycemia after he took long-acting insulin and then took some glucagon and then took some more long-acting insulin and then took some more glucagon. Basically, he is kind of noncompliant with his meds. We got the patient and got his glucose under control. He also had moderately severe balanitis with penile swelling and discharge, but we do not have a urologist. He does not produce a lot of urine, although he was urinating some. He states he actually was at his baseline as far as his urine output. We gave him IV antibiotics. Over the past few days, he returned to his baseline. He does need to see a urologist. I think he needs to have a circumcision. We will see what Urology says. We discharged to home yesterday after he was seen and examined. His heart tones were normal. Lungs were clear. DISPOSITION: Home. ACTIVITY: As tolerated. DIET: Diabetic. MEDICATIONS: Please see the MRAD. I gave him prescriptions for Diflucan, Augmentin and doxycycline. TOTAL TIME: 34 minutes. KRISTEN [place] DO DR: MARY/ruel JOB#: [id number] / [id number]
== END 2019-09-21 17:46 | disposition home or self-care (01) | DRG 637 ==
LOC: ER 13:37 → ED HOLD 15:30 → 6 SOUTH 18:13
PROVIDERS: ADMIT Internal Medicine; ATTEND Internal Medicine
DX: E10.649 Type 1 diabetes mellitus with hypoglycemia without coma (principal); G93.41 Metabolic encephalopathy; E46 Unspecified protein-calorie malnutrition; I12.0 Hypertensive chronic kidney disease with stage 5 chronic kidney disease or end stage renal disease; N18.6 End stage renal disease; J44.9 Chronic obstructive pulmonary disease, unspecified; E10.22 Type 1 diabetes mellitus with diabetic chronic kidney disease; E78.5 Hyperlipidemia, unspecified; I25.10 Atherosclerotic heart disease of native coronary artery without angina pectoris; M19.90 Unspecified osteoarthritis, unspecified site; Z96.659 Presence of unspecified artificial knee joint; N48.22 Cellulitis of corpus cavernosum and penis; D72.829 Elevated white blood cell count, unspecified; E10.51 Type 1 diabetes mellitus with diabetic peripheral angiopathy without gangrene; D63.8 Anemia in other chronic diseases classified elsewhere; E83.39 Other disorders of phosphorus metabolism; E83.42 Hypomagnesemia; E83.51 Hypocalcemia; N48.89 Other specified disorders of penis; Z68.24 Body mass index [BMI] 24.0-24.9, adult; Z91.14 Patient's other noncompliance with medication regimen; I25.2 Old myocardial infarction; Z87.891 Personal history of nicotine dependence; Z91.19 Patient's noncompliance with other medical treatment and regimen; Z99.2 Dependence on renal dialysis; Z88.8 Allergy status to other drugs, medicaments and biological substances; Z86.73 Personal history of transient ischemic attack (TIA), and cerebral infarction without residual deficits; Z83.3 Family history of diabetes mellitus; Z80.9 Family history of malignant neoplasm, unspecified; Z82.49 Family history of ischemic heart disease and other diseases of the circulatory system
CPT/HCPCS: 36415; 71045; 80048; 80053; 80069; 80202; 82140; 82553; 82962; 83605; 83735; 84484; 85007; 85025; 85651; 87040; 93005; 93971; 96365; 96367; 96375; 96376; C9113; J0696; J1815; J2248; J2543; J3370; J7040; J7042; 99285-25; G0378

== ENCOUNTER 2019-10-08 15:30 | Inpatient (IN) | payer MEDICARE ==
[~2019-10-08] VITALS: Ht 172.7 cm; Wt 69.9 kg
[2019-10-08 15:30] VITALS: BP 105/55
[~2019-10-08 15:30] MED LIST changes: +GLYB5TAB3 PO
--- NOTE | 2019-10-08 16:28 | PDOC1 ---
History and Physical Date of Admission Date of Admission DATE: 10/08/19 TIME: 16:27 Identification/Chief Complaint Chief Complaint Confusion Source Source: Patient History of Present Illness History of Present Illness Mr Easton is a 53yo M w/ PMHx hypertension, diabetes, and end-stage renal disease previously on hemodialysis who transitioned to peritoneal dialysis mid 2018. Presented to [place] via EMS with hyperglycemia and altered mental status. The patient's relatives who lives out of state was talking to him on the phone and thought that he sounded unusual. EMS found the patient on the couch and the patient admits to sitting there for 3 days. He had urine and feces on him. His initial blood sugar was well over 400. He was alert to himself only at first. He was becoming more alert during transport. Patient denies any falls. He denies drinking alcohol though his family is concerned he has been drinking. ETOH level not detectable. The patient is a long-standing diabetic. He is on dialysis. He says that he used peritoneal dialysis last night. He does not have any additional specific complaints. He denies any falls or trauma. CXR clear BUN 65, Cr 9.5, Albumin 1.2, WBC 13, Hb 9.4, his anion gap is 22. His blood sugar was 484. Lactate 4. Alkaline phosphatase 583. Called for admission for further treatment of his confusion and labs abnormalities. No nephrology services at [facility] so transferred to [facility]. Past Medical History Cardiovascular: CAD, HTN, Hyperlipidemia Pulmonary: COPD CENTRAL NERVOUS SYSTEM: CVA GI: Constipation Heme/Onc: Anemia NOS Musculoskeletal: Osteoarthritis Renal/: Chronic renal failure, Benign prostatic enlarg. Endocrine: Diabetes, Hyperparathyroidism Past Surgical History Past Surgical History: Total knee replacement, Other Family History Family History: Cancer Social History Smoke: No ALCOHOL: none Drugs: None Current Medications Current Medications Current Medications Ondansetron HCl (Zofran) 4 mg PRN Q4HRS PRN IV NAUSEA/VOMITING; Start 10/08/19 at 16:30 Acetaminophen (Tylenol) 650 mg PRN Q4HRS PRN PO TEMP OVER 100.4F OR MILD PAIN; Start 10/08/19 at 16:30 Docusate Sodium (Colace) 100 mg PRN BID PRN PO CONSTIPATION; Start 10/08/19 at 16:30 Active Scripts Active Tramadol Hcl 50 Mg Tablet 50 Mg PO PRN Q6HRS PRN 3 Days Culturelle (Lactobacillus Rhamnosus Gg) 1 Each Cap.sprink 1 Cap PO BID 7 Days [Fluconazole] 100 MG Tablet 100 Mg PO DAILY 7 Days Doxycycline Hyclate 100 Mg Tablet 100 Mg PO BID 7 Days Amox Tr-K Clv 500-125 Mg Tab (Amoxicillin/Potassium Clav) 1 Each Tablet 1 Tab PO DAILY 7 Days Aspirin Ec (Aspirin) 81 Mg Tablet.dr 81 Mg PO DAILYWBKFT Reported Glyburide 5 Mg Tablet 5 Mg PO DAILY Lantus Solostar (Insulin Glargine,Hum.rec.anlog) 100 Unit/1 Ml Insuln.pen 10 Unit SQ QHS Humalog (Insulin Lispro) 100 Unit/1 Ml Cartridge 100 Unit SQ TIDWMEALS Omeprazole 20 Mg Tablet.dr 20 Mg PO DAILY Calcitriol 0.5 Mcg Capsule 0.5 Mcg PO DAILY Furosemide 80 Mg Tablet 80 Mg PO BID Glucagen (Glucagon,Human Recombinant) 1 Mg Vial 1 PRN PRN Tamsulosin Hcl 0.4 Mg Cap.er.24h 1 Cap PO HS Montelukast Sodium Tablet (Montelukast Sodium) 10 Mg Tablet 1 Tab PO HS PRN Ondansetron Odt (Ondansetron) 4 Mg Tab.rapdis 1 Tab PO PRN Q6-8HRS PRN Lantus Solostar (Insulin Glargine,Hum.rec.anlog) 100 Unit/1 Ml Insuln.pen 11 Unit SQ QHS Humalog (Insulin Lispro) 100 Unit/1 Ml Cartridge 22 Unit SQ TIDWMEALS Cozaar (Losartan Potassium) 100 Mg Tablet 100 Mg PO HS Carvedilol 25 Mg Tablet 25 Mg PO BIDWMEALS Atorvastatin Calcium 40 Mg Tablet 40 Mg PO HS Amlodipine Besylate 10 Mg Tablet 10 Mg PO DAILY Allergies Allergies: Coded Allergies: lamotrigine (Verified Allergy, Severe, HIVES, SHORTNESS OF BREATH, 08/27/19) ROS General: YES: Fatigue, Malaise; No: Chills, Night Sweats, Appetite, Other PSYCHOLOGICAL ROS: YES: Disorientation; No: Anxiety, Behavioral Disorder, Concentration difficultie, Decreased libido, Depression, Hallucinations, Hostility, Irritablity, Memory difficulties, Mood Swings, Obsessive thoughts, Physical abuse, Sexual abuse, Sleep disturbances, Suicidal ideation, Other Eyes: No Blurry vision, No Decreased vision, No Double vision, No Dry eyes, No Excessive tearing, No Eye Pain, No Itchy Eyes, No Loss of vision, No Photophobia, No Scotomata, No Uses contacts, No Uses glasses, No Other HEENT: No: Heacaches, Visual Changes, Hearing change, Nasal congestion, Nasal discharge, Oral lesions, Sinus pain, Sore Throat, Epistaxis, Sneezing, Snoring, Tinnitus, Vertigo, Vocal changes, Other ALLERGY AND IMMUNOLOGY: No: Hives, Insect Bite Sensitivity, Itchy/Watery Eyes, Nasal Congestion, Post Nasal Drip, Seasonal Allergies, Other Hematological and Lymphatic: No: Bleeding Problems, Blood Clots, Blood Transfusions, Brusing, Night Sweats, Pallor, Swollen Lymph Nodes, Other ENDOCRINE: No: Breast Changes, Galactorrhea, Hair Pattern Changes, Hot Flashes, Malaise/lethargy, Mood Swings, Palpitations, Polydipsia/polyuria, Skin Changes, Temperature Intolerance, Unexpected Weight Changes, Other Breast: No New/Changing Breast Lumps, No Nipple changes, No Nipple discharge, No Other Respiratory: No: Cough, Hemoptysis, Orthopnea, Pleuritic Pain, Shortness of breath, SOB with excertion, Sputum Changes, Stridor, Tachypnea, Wheezing, Other Cardiovascular: No Chest Pain, No Palpitations, No Orthopnea, No Paroxysmal Noc. Dyspnea, No Edema, No Lt Headedness, No Other Gastrointestinal: Yes Nausea; No Vomiting, No Abdominal Pain, No Diarrhea, No Constipation, No Melena, No Hematochezia, No Other Genitourinary: YES Retention; No Dysuria, No Frequency, No Incontinence, No Hematuria, No Discharge, No Urgency, No Pain, No Flank Pain, No Other, No , No , No , No , No , No , No Musculoskeletal: No Gait Disturbance, No Joint Pain, No Joint Stiffness, No Joint Swelling, No Muscle Pain, No Muscular Weakness, No Pain In:, No Swelling In:, No Other Neurological: Yes Confusion, Yes Gait Disturbance, Yes Memory Loss; No Behavorial Changes, No Bowel/Bladder ControlChng, No Dizziness, No Headaches, No Impaired Coord/balance, No Numbness/Tingling, No Seizures, No Speech Problems, No Tremors, No Visual Changes, No Weakness, No Other Skin: No Dry Skin, No Eczema, No Hair Changes, No Lumps, No Mole Changes, No Mottling, No Nail Changes, No Pruritus, No Rash, No Skin Lesion Changes, No Other, No Acne Physical Exam General: Alert, Cooperative, No acute distress HEENT: Atraumatic, PERRLA, EOMI, Mucous membr. moist/pink Lungs: Clear to auscultation, Normal air movement Heart: S1S2, RRR, no thrills, no rubs, no gallops, no murmurs Abdomen: Normal bowel sounds, Soft, No tenderness, No hepatosplenomegaly, No masses, Other (PD catheter) Male Genitals Exam: erythema, urethral discharge Extremities: No clubbing, No cyanosis, Normal pulses, No tenderness/swelling Skin: Other (Penile ulcer, unable to assess glans, appears to have phimosis) Neuro: Normal speech, Strength at 5/5 X4 ext, Normal tone, Cranial nerves 3-12 NL, Reflexes 2+ Psych/Mental Status: Other (Confused) VTE Prophylaxis Ordered VTE Prophylaxis Devices: No VTE Pharmacological Prophylaxi: Yes Assessment/Plan Assessment/Plan A/P: Acute encephalopathy - metabolic 2/2 DKA and toxic 2/2 likely infectious etiology DKA, type 2 - insulin GTT. will repeat BMP, may be able to eat, lantus tonight. Elevated alkaline phosphatase level - will monitor, no biliary problems previously Lactic acidosis - likely due to diabetes mellitus. Will trend Penile cellulitis - present on admission, likely from failure to f/u outpatient - Doxy and augmentin with fluconazole previously. Will culture and consult ID ESRD on HD transitioning to PD prior to his admission - tolerating well. Will consult nephrology Leukocytosis - uncertain etiology, f/u cultures. Meets SIRS criteria, does still have penile ulcerations. Previously with coag negative staph on PD culture HTN - cont meds DM type 2 insulin requiring - now hyperglycemic, previously with hypoglycemic event - hypoglycemia protocol. Cont insulin basal bolus plus once out of DKA Severe protein calorie malnutrition - unclear etiology, albumin 1.2, definitely has inconsistent PO intake. Printmaker to see Anemia - of chronic renal disease Penile cellulitis, could have a component of vasculature involvement. U/S shows no abscess - painless ulcer concerning. Syphilis testing negative previously. Wound care to see Gait instability - needs further PT Anemia - of chronic renal disease FEN - NPO until gap closes PPX - Heparin TID FULL CODE Dispo - inpatient likely for at least 2 midnights JOSE SOLANO MD Oct 08, 2019 16:28
[2019-10-08] MEDS ORDERED: DOCUSATE SODIUM 100 MG CAPSULE. PO PRN (16:30)
[2019-10-08] MEDS ORDERED: ONDANSETRON PF 4 MG/2 ML VIAL. IV PRN (16:30)
[2019-10-08] MEDS ORDERED: IV DEXTROSE 5% 250 ML BAG. IV PRN (17:00)
[2019-10-08] MEDS ORDERED: traMADol 50 MG TABLET PO PRN (17:00)
[2019-10-08] MEDS ORDERED: MONTELUKAST SODIUM 10 MG TABLET. PO PRN (17:00)
[2019-10-08] MEDS ORDERED: ONDANSETRON ODT 4 MG TAB.RAPDIS. PO PRN (17:00)
[2019-10-08 19:13] LABS: CALCIUM 8.9 mg/dL (8.5-10.1); CREATININE 9.5 mg/dL (0.7-1.3); GFR 5.8; MAGNESIUM 2.2 mg/dL (1.8-2.4); POTASSIUM 4.4 mmol/L (3.5-5.1)
[2019-10-08 19:15] LABS: PHOSPHORUS 11.3 mg/dL (2.6-4.7)
[2019-10-08 19:20] VITALS: BP 141/54
[2019-10-08] MEDS ORDERED: IV NORMAL SALINE 500ML BAG 500 ML IV ONE (20:00)
[2019-10-08] MEDS: ATORVASTATIN CALCIUM 40 MG TABLET. PO SCH (20:56)
[2019-10-08] MEDS: TAMSULOSIN 0.4 MG CAP.ER.24H. PO SCH (20:56)
[2019-10-08] MEDS: CALCIUM ACETATE 667 MG CAPSULE PO SCH (20:56)
[2019-10-08] MEDS: LOSARTAN POTASSIUM 50 MG TABLET. PO SCH (20:56)
[2019-10-08] MEDS: FUROSEMIDE 80 MG TABLET. PO SCH (20:56)
[2019-10-08] MEDS: LACTOBACILLUS RHAMNOSUS GG 1 CAPSULE. PO SCH (20:56)
[2019-10-08] MEDS: INSULIN GLARGINE SYRINGE. SQ SCH (21:00)
[2019-10-08] MEDS: INSULIN LISPRO 300 UNITS/3 ML VIAL. SQ SCH (21:00)
[2019-10-08] MEDS: DEXTROSE 50% 25 GM / 50ML DISP.SYRIN. IV PRN (21:05)
[2019-10-08 23:55] VITALS: BP 134/68
[2019-10-09 03:25] VITALS: BP 143/83
[2019-10-09 05:11] LABS: ALBUMIN 1.1 g/dL (3.4-5.0); ALBUMIN/GLOBULIN RATIO 0.3 (1.0-1.7); CALCIUM 8.7 mg/dL (8.5-10.1); CREATININE 9.7 mg/dL (0.7-1.3); GFR 5.7; POTASSIUM 4.9 mmol/L (3.5-5.1); TOTAL BILIRUBIN 0.3 mg/dL (0.2-1.0); TOTAL PROTEIN 4.5 g/dL (6.4-8.2)
[2019-10-09 07:15] VITALS: BP 140/57
[2019-10-09] MEDS ORDERED: VITS A & D/LANOLIN TOPICAL OINTMENT 42GM TUBE. TP PRN (09:00)
--- NOTE | 2019-10-09 09:39 | PDOC2 ---
CONSULT Date of Consult Date of Consult DATE: 10/09/19 TIME: 09:29 Reason for Consult Reason for Consult: ESRD Source Source: Chart review, Patient History of Present Illness Reason for Visit: Mr Easton is a 53yo CM w/ PMHx hypertension, diabetes, and end-stage renal disease previously on hemodialysis who transitioned to peritoneal dialysis mid 2018. Presented to [facility] via EMS with hyperglycemia and altered mental status.. EMS found the patient on the couch and the patient admits to sitting there for 3 days. He had urine and feces on him. His initial blood sugar was well over 400. He was alert to himself only at first. He was becoming more alert during transport. Patient denies any falls. He denies drinking alcohol though his family is concerned he has been drinking. ETOH level not detectable. The patient is a long-standing diabetic. He is on dialysis. He says that he used peritoneal dialysis night prior to admission . He does not have any additional specific complaints. He denies any falls or trauma. CXR clear Past Medical History Cardiovascular: CAD, HTN, Hyperlipidemia Pulmonary: COPD CENTRAL NERVOUS SYSTEM: CVA GI: Constipation Heme/Onc: Anemia NOS Musculoskeletal: Osteoarthritis Renal/: Chronic renal failure, Benign prostatic enlarg. Endocrine: Diabetes, Hyperparathyroidism Past Surgical History Past Surgical History: Total knee replacement, Other Family History Family History: Cancer Social History No ALCOHOL: none Drugs: None Lives: with Family Current Medications Current Medications Current Medications Ondansetron HCl (Zofran) 4 mg PRN Q4HRS PRN IV NAUSEA/VOMITING; Start 10/08/19 at 16:30 Acetaminophen (Tylenol) 650 mg PRN Q4HRS PRN PO TEMP OVER 100.4F OR MILD PAIN; Start 10/08/19 at 16:30 Docusate Sodium (Colace) 100 mg PRN BID PRN PO CONSTIPATION; Start 10/08/19 at 16:30 Insulin Human Lispro (HumaLOG) 0-7 UNITS TIDACHC SQ ; Start 10/08/19 at 21:00 Dextrose (Dextrose 50%-Water Syringe) 12.5 gm PRN Q15MIN PRN IV SEE COMMENTS Last administered on 10/08/19at 21:05; Start 10/08/19 at 17:00 Dextrose (Iv Dextrose 5%) 250 ml PRN Q15MIN PRN IV SEE COMMENTS; Start 10/08/19 at 17:00 Aspirin (Ecotrin) 81 mg DAILYWBKFT PO ; Start 10/09/19 at 08:00 Atorvastatin Calcium (Lipitor) 40 mg HS PO Last administered on 10/08/19at 20:56; Start 10/08/19 at 21:00 Furosemide (Lasix) 80 mg BID94 PO Last administered on 10/08/19at 20:56; Start 10/08/19 at 18:00 Lactobacillus Rhamnosus (Culturelle) 1 cap BID PO Last administered on 10/08/19at 20:56; Start 10/08/19 at 21:00 Montelukast Sodium (Singulair) 10 mg HS PRN PO ALLERGIES; Start 10/08/19 at 17:00 Ondansetron HCl (Zofran Odt) 4 mg PRN Q6HRS PRN PO NAUSEA; Start 10/08/19 at 17:00 Tamsulosin HCl (Flomax) 0.4 mg HS PO Last administered on 10/08/19at 20:56; Start 10/08/19 at 21:00 Tramadol HCl (Ultram) 50 mg PRN Q6HRS PRN PO MODERATE PAIN; Start 10/08/19 at 17:00 Insulin Glargine (Lantus Syringe) 10 unit QHS SQ ; Start 10/08/19 at 21:00 Losartan Potassium (Cozaar) 100 mg HS PO Last administered on 10/08/19at 20:56; Start 10/08/19 at 21:00 Pantoprazole Sodium (Protonix) 40 mg DAILYAC PO ; Start 10/09/19 at 07:30 Sodium Chloride 500 ml @ 500 mls/hr 1X ONCE IV Last administered on 10/08/19at 20:00; Start 10/08/19 at 20:00; Stop 10/08/19 at 20:59; Status DC Calcium Acetate (Phoslo) 1,334 mg TIDWMEALS PO Last administered on 10/08/19at 20:56; Start 10/08/19 at 20:00 Vitamin A/Vitamin D (Vitamin A & D Ointment) 1 lucero PRN Q1HR PRN TP SKIN PROTECTION; Start 10/09/19 at 09:00 Active Scripts Active Tramadol Hcl 50 Mg Tablet 50 Mg PO PRN Q6HRS PRN 3 Days Culturelle (Lactobacillus Rhamnosus Gg) 1 Each Cap.sprink 1 Cap PO BID 7 Days [Fluconazole] 100 MG Tablet 100 Mg PO DAILY 7 Days Doxycycline Hyclate 100 Mg Tablet 100 Mg PO BID 7 Days Amox Tr-K Clv 500-125 Mg Tab (Amoxicillin/Potassium Clav) 1 Each Tablet 1 Tab PO DAILY 7 Days Aspirin Ec (Aspirin) 81 Mg Tablet.dr 81 Mg PO DAILYWBKFT Reported Glyburide 5 Mg Tablet 5 Mg PO DAILY Lantus Solostar (Insulin Glargine,Hum.rec.anlog) 100 Unit/1 Ml Insuln.pen 10 Unit SQ QHS Humalog (Insulin Lispro) 100 Unit/1 Ml Cartridge 100 Unit SQ TIDWMEALS Omeprazole 20 Mg Tablet.dr 20 Mg PO DAILY Calcitriol 0.5 Mcg Capsule 0.5 Mcg PO DAILY Furosemide 80 Mg Tablet 80 Mg PO BID Glucagen (Glucagon,Human Recombinant) 1 Mg Vial 1 PRN PRN Tamsulosin Hcl 0.4 Mg Cap.er.24h 1 Cap PO HS Montelukast Sodium Tablet (Montelukast Sodium) 10 Mg Tablet 1 Tab PO HS PRN Ondansetron Odt (Ondansetron) 4 Mg Tab.rapdis 1 Tab PO PRN Q6-8HRS PRN Lantus Solostar (Insulin Glargine,Hum.rec.anlog) 100 Unit/1 Ml Insuln.pen 11 Unit SQ QHS Humalog (Insulin Lispro) 100 Unit/1 Ml Cartridge 22 Unit SQ TIDWMEALS Cozaar (Losartan Potassium) 100 Mg Tablet 100 Mg PO HS Carvedilol 25 Mg Tablet 25 Mg PO BIDWMEALS Atorvastatin Calcium 40 Mg Tablet 40 Mg PO HS Amlodipine Besylate 10 Mg Tablet 10 Mg PO DAILY Allergies Allergies: Coded Allergies: lamotrigine (Verified Allergy, Severe, HIVES, SHORTNESS OF BREATH, 08/27/19) ROS Review of System Per HPI Physical Exam Physical Exam General: No acute distress, HEENT: OM moist Neck Supple Lungs: Clear to auscultation, Normal air movement Heart: S1S2, RRR, no thrills, no rubs, no gallops, no murmurs Cardiovascular: S1, S2 Abdomen: Normal bowel sounds, Soft, No tenderness, PD actheter in place, no e/ Exit site infection Extremities: left av fistula Skin: No rashes, No quinteros Neuro Vital Signs Vital Signs Date Time Temp Pulse Resp B/P (MAP) Pulse Ox O2 Delivery O2 Flow Rate FiO2 10/09/19 07:15 98.1 109 18 140/57 (84) 95 Nasal Cannula 2.0 98.1 Assessment & Plan ESRD- Dr Riggs's pt at [facility] per Home Prescription Anemia- VAN for Hgb < 10 Monitor Acute encephalopathy - metabolic 2/2 DKA and toxic 2/2 likely infectious etiology DKA, type 2 Balanitis chronic- Per ID HTN - cont meds Severe protein calorie malnutrition albumin 1.1, Labs Labs Laboratory Tests Test 10/08/19 15:32 10/08/19 16:28 10/08/19 17:50 10/08/19 18:23 Glucose (Fingerstick) 229 mg/dL (70-99) 170 mg/dL (70-99) 106 mg/dL (70-99) Sodium Level 139 mmol/L (136-145) Potassium Level 4.4 mmol/L (3.5-5.1) Chloride Level 100 mmol/L (98-107) Carbon Dioxide Level 26 mmol/L (21-32) Anion Gap 13 (6-14) Blood Urea Nitrogen 67 mg/dL (8-26) Creatinine 9.5 mg/dL (0.7-1.3) Estimated GFR (Cockcroft-Gault) 5.8 Glucose Level 109 mg/dL (70-99) Lactic Acid Level 4.1 mmol/L (0.4-2.0) Calcium Level 8.9 mg/dL (8.5-10.1) Phosphorus Level 11.3 mg/dL (2.6-4.7) Magnesium Level 2.2 mg/dL (1.8-2.4) Test 10/08/19 21:00 10/08/19 21:17 10/08/19 23:37 10/09/19 02:28 Glucose (Fingerstick) 42 mg/dL (70-99) 119 mg/dL (70-99) 128 mg/dL (70-99) 168 mg/dL (70-99) Test 10/09/19 03:44 10/09/19 07:32 Sodium Level 141 mmol/L (136-145) Potassium Level 4.9 mmol/L (3.5-5.1) Chloride Level 97 mmol/L (98-107) Carbon Dioxide Level 22 mmol/L (21-32) Anion Gap 22 (6-14) Blood Urea Nitrogen 67 mg/dL (8-26) Creatinine 9.7 mg/dL (0.7-1.3) Estimated GFR (Cockcroft-Gault) 5.7 BUN/Creatinine Ratio 7 (6-20) Glucose Level 205 mg/dL (70-99) Calcium Level 8.7 mg/dL (8.5-10.1) Total Bilirubin 0.3 mg/dL (0.2-1.0) Aspartate Amino Transf (AST/SGOT) 17 U/L (15-37) Alanine Aminotransferase (ALT/SGPT) 13 U/L (16-63) Alkaline Phosphatase 517 U/L (46-116) Total Protein 4.5 g/dL (6.4-8.2) Albumin 1.1 g/dL (3.4-5.0) Albumin/Globulin Ratio 0.3 (1.0-1.7) Procalcitonin 31.63 ng/mL (0.00-0.10) Glucose (Fingerstick) 276 mg/dL (70-99) Laboratory Tests Test 10/08/19 15:32 10/08/19 16:28 10/08/19 17:50 10/08/19 18:23 Glucose (Fingerstick) 229 mg/dL (70-99) 170 mg/dL (70-99) 106 mg/dL (70-99) Sodium Level 139 mmol/L (136-145) Potassium Level 4.4 mmol/L (3.5-5.1) Chloride Level 100 mmol/L (98-107) Carbon Dioxide Level 26 mmol/L (21-32) Anion Gap 13 (6-14) Blood Urea Nitrogen 67 mg/dL (8-26) Creatinine 9.5 mg/dL (0.7-1.3) Estimated GFR (Cockcroft-Gault) 5.8 Glucose Level 109 mg/dL (70-99) Lactic Acid Level 4.1 mmol/L (0.4-2.0) Calcium Level 8.9 mg/dL (8.5-10.1) Phosphorus Level 11.3 mg/dL (2.6-4.7) Magnesium Level 2.2 mg/dL (1.8-2.4) Test 10/08/19 21:00 10/08/19 21:17 10/08/19 23:37 10/09/19 02:28 Glucose (Fingerstick) 42 mg/dL (70-99) 119 mg/dL (70-99) 128 mg/dL (70-99) 168 mg/dL (70-99) Test 10/09/19 03:44 10/09/19 07:32 Sodium Level 141 mmol/L (136-145) Potassium Level 4.9 mmol/L (3.5-5.1) Chloride Level 97 mmol/L (98-107) Carbon Dioxide Level 22 mmol/L (21-32) Anion Gap 22 (6-14) Blood Urea Nitrogen 67 mg/dL (8-26) Creatinine 9.7 mg/dL (0.7-1.3) Estimated GFR (Cockcroft-Gault) 5.7 BUN/Creatinine Ratio 7 (6-20) Glucose Level 205 mg/dL (70-99) Calcium Level 8.7 mg/dL (8.5-10.1) Total Bilirubin 0.3 mg/dL (0.2-1.0) Aspartate Amino Transf (AST/SGOT) 17 U/L (15-37) Alanine Aminotransferase (ALT/SGPT) 13 U/L (16-63) Alkaline Phosphatase 517 U/L (46-116) Total Protein 4.5 g/dL (6.4-8.2) Albumin 1.1 g/dL (3.4-5.0) Albumin/Globulin Ratio 0.3 (1.0-1.7) Procalcitonin 31.63 ng/mL (0.00-0.10) Glucose (Fingerstick) 276 mg/dL (70-99) Review All relevant outside records, renal labs, imaging studies, telemetry/EKG's were reviewed. Images Images Cxr-- IMPRESSION: No acute pulmonary process. LUE arteriogram/ brachial artery stenosis 08/07/2019 1. Left upper extremity angiography 2. Left upper shotty fistulogram 3. Balloon angioplasty of brachial artery stenosis 1. Moderate brachial artery stenosis treated with balloon angioplasty with improved morphology and flow. Residual stenosis within the brachial artery are not felt to likely be flow-limiting. 2. Severe atherosclerotic vascular disease including chronic appearing occlusion of the distal radial arteries, with poor filling of digital arteries. Findings likely represent chronic severe microvascular disease. An acute embolic phenomenon is not identified. 3. With compression of the significant improvement and perfusion angiographically and clinically with compression of the fistula. Notably at the end of the procedure the patient had fall asleep, with significant decrease in blood pressure. His hand appeared significantly more dusky than at the beginning of the procedure, only after his blood pressure dropped. The fistula was then compressed, which overtly improved perfusion to the hand 4. Stenosis of the proximal most outflow vein, including the brachial-cephalic anastomosis. Remainder of the left upper extremity fistula is patent. No outflow disease is identified. Proximal stenosis was not treated at this time, secondary to concern for worsening left hand ischemia. IVAN APARICIO MD Oct 09, 2019 09:38
[2019-10-09] MEDS: LACTOBACILLUS RHAMNOSUS GG 1 CAPSULE. PO SCH ×2 (10:02→21:30)
[2019-10-09] MEDS: FUROSEMIDE 80 MG TABLET. PO SCH ×2 (10:02→17:25)
[2019-10-09] MEDS: PANTOPRAZOLE 40 MG TABLET.DR. PO SCH (10:02)
[2019-10-09] MEDS: ASPIRIN ENTERIC COATED 81 MG TABLET.DR. PO SCH (10:02)
[2019-10-09] MEDS: CALCIUM ACETATE 667 MG CAPSULE PO SCH ×3 (10:03→17:25)
[2019-10-09] MEDS: INSULIN LISPRO 300 UNITS/3 ML VIAL. SQ SCH ×4 (10:18→21:00)
--- NOTE | 2019-10-09 10:23 | NUR ---
Wound Care: Patient seen per wound care consult. See wound assessment. Patient is known to us from previous admissions. Patient has abscess to penis wound, wound cleansed, assessed, measured, and pictured. Recommendations for A & D ointment as ordered. Patient also has what appears as possible arterial ulcers to the left 5th finger and left 1st finger, wounds cleansed, assessed, measured, and pictured. Recommendations to paint with Betadine daily. Dressings applied. Patient has dry feet and legs, also recommend to moisturize with lotion daily before wounds to feet reopen. No other wounds noted at this time. Patient repositioned to left side using pillow. Dressing change instructions left in room. Patient educated on turning. Bed lowered and call light in reach. Bed alarm on. Spoke with RN regarding POC. Patient will need vascular consult if hospitalist agreeable for the new wounds to the left fingers.
--- NOTE | 2019-10-09 10:36 | PDOC ---
Infectious Disease Note Subjective Subjective Pt well known to us from recent admissions Just dc Oct 03 with Augment/doxy/Fluconazole - he cannot tell me if he was taking these at home 53 yo male brought in again for mental status change and weakness to [facility] via EMS with hyperglycemia and altered mental status. The patient's relatives who lives out of state was talking to him on the phone and thought that he sounded unusual. EMS found the patient on the couch and the patient admits to sitting there for 3 days. He had urine and feces on him. His initial blood sugar was well over 400. BUN 65, Cr 9.5, Albumin 1.2, WBC 13, Hb 9.4, his anion gap is 22. His blood sugar was 484. Lactate 4. Alkaline phosphatase 583. He has end-stage renal disease on PD Over the past few weeks this is recurrent 4th admission and he seems to be failing to thrive He was supposed to f/u with [facility] again for balanitis with wounds over the glans but did not He today says he is feeling better and wants to go home Doing ok. No Pain/F/C/S/N/V/D but can't remember why he is here ROS ROS o/w neg Vital Sign Vital Signs Vital Signs Date Time Temp Pulse Resp B/P (MAP) Pulse Ox O2 Delivery O2 Flow Rate FiO2 10/09/19 07:15 98.1 109 18 140/57 (84) 95 Nasal Cannula 2.0 98.1 Physical Exam PHYSICAL EXAM GENERAL: alert awake male in nad but slow to respond HEENT: Normocephalic, atraumatic, anicteric. No thrush. NECK: No tenderness. Supple, no JVD, LUNGS: Clear. HEART: S1, S2. ABDOMEN: Soft. PD catheter in place, nontender, nondistended. GENITOURINARY: Penile swelling, min redness with eschar like lesion,, No purulence noted EXTREMITIES: no pedal edema SKIN: Dry skin. No cyanosis.superficial skin erythema on back pressure changes NEUROLOGIC: nonfocal grossly, has gen weakness PSYCHIATRIC axox3 male in nad Labs Lab Laboratory Tests Test 10/08/19 15:32 10/08/19 16:28 10/08/19 17:50 10/08/19 18:23 Glucose (Fingerstick) 229 mg/dL (70-99) 170 mg/dL (70-99) 106 mg/dL (70-99) Sodium Level 139 mmol/L (136-145) Potassium Level 4.4 mmol/L (3.5-5.1) Chloride Level 100 mmol/L (98-107) Carbon Dioxide Level 26 mmol/L (21-32) Anion Gap 13 (6-14) Blood Urea Nitrogen 67 mg/dL (8-26) Creatinine 9.5 mg/dL (0.7-1.3) Estimated GFR (Cockcroft-Gault) 5.8 Glucose Level 109 mg/dL (70-99) Lactic Acid Level 4.1 mmol/L (0.4-2.0) Calcium Level 8.9 mg/dL (8.5-10.1) Phosphorus Level 11.3 mg/dL (2.6-4.7) Magnesium Level 2.2 mg/dL (1.8-2.4) Test 10/08/19 21:00 10/08/19 21:17 10/08/19 23:37 10/09/19 02:28 Glucose (Fingerstick) 42 mg/dL (70-99) 119 mg/dL (70-99) 128 mg/dL (70-99) 168 mg/dL (70-99) Test 10/09/19 03:44 10/09/19 07:32 Sodium Level 141 mmol/L (136-145) Potassium Level 4.9 mmol/L (3.5-5.1) Chloride Level 97 mmol/L (98-107) Carbon Dioxide Level 22 mmol/L (21-32) Anion Gap 22 (6-14) Blood Urea Nitrogen 67 mg/dL (8-26) Creatinine 9.7 mg/dL (0.7-1.3) Estimated GFR (Cockcroft-Gault) 5.7 BUN/Creatinine Ratio 7 (6-20) Glucose Level 205 mg/dL (70-99) Calcium Level 8.7 mg/dL (8.5-10.1) Total Bilirubin 0.3 mg/dL (0.2-1.0) Aspartate Amino Transf (AST/SGOT) 17 U/L (15-37) Alanine Aminotransferase (ALT/SGPT) 13 U/L (16-63) Alkaline Phosphatase 517 U/L (46-116) Total Protein 4.5 g/dL (6.4-8.2) Albumin 1.1 g/dL (3.4-5.0) Albumin/Globulin Ratio 0.3 (1.0-1.7) Procalcitonin 31.63 ng/mL (0.00-0.10) Glucose (Fingerstick) 276 mg/dL (70-99) Objective Assessment 1. Leukocytosis - ? reactive 2. Acute Encephalopathy. Improving likely from hyperglycemia 3. DKA 4. Balanitis chronic 5. Anemia of chronic disease. 6. End-stage renal disease, on peritoneal dialysis. 7. Peripheral vascular disease. Plan Plan of Care Restart Doxy/Augmentin/Fluconazole Need Urology f/u F/u labs and cults Local wound care D/w CORY Barreto MD Oct 09, 2019 10:36
[2019-10-09] MEDS: FLUCONAZOLE 100 MG TABLET. PO SCH (11:05)
[2019-10-09] MEDS: DOXYCYCLINE HYCLATE 100 MG TABLET PO SCH ×2 (11:05→21:31)
[2019-10-09 11:06] VITALS: BP 115/57
[2019-10-09] MEDS: AMOXICILLIN/K CLAV 500/125MG TABLET. PO SCH (11:06)
--- NOTE | 2019-10-09 11:58 | NUR ---
SS following for discharge planning. SS reviewed pt chart. Pt is from home with spouse and is currently requiring oxygen. Pt declined any facility placement on last admission. Pt is on peritoneal dialysis at home. OT recommending longterm unit. SS currently awaiting PT evaluation. SS met with pt and spoke with pt's brother, Robin, . Pt's brother concerned with pt's health. Pt's brother reported that pt lives in [place] that is not safe. Pt's brother wanting to take brother back to [place] with him if LTC cannot be afforded in [place]. Pt's brother requesting pt go to rehab facility for strengthening. long-term units cannot accommodate peritoneal dialysis but acute rehabilitation has capability per [facility]. Pt's brother requested referral be phoned and faxed to [facility], ; [phone]. SS will phone and fax referral once PT note has been completed. Pt's brother also notified SS that he has made report to Adult Protective Services, intake# [id number], due to pt's living situation. Pt's RN notified. SS will continue to follow for discharge planning.
--- NOTE | 2019-10-09 12:11 | PDOC ---
PROGRESS NOTES Chief Complaint Chief Complaint A/P: Acute encephalopathy - metabolic 2/2 DKA and toxic 2/2 likely infectious etiology. Still somewhat confused DKA, type 2 - off insulin GTT. will repeat BMP, able to eat, lantus tonight. Elevated alkaline phosphatase level - will monitor, no biliary problems previously Lactic acidosis - likely due to diabetes mellitus. Will trend Penile cellulitis - present on admission, likely from failure to f/u outpatient - Doxy and augmentin with fluconazole previously. Will culture and consult ID ESRD on HD transitioning to PD prior to his admission - tolerating well. Will consult nephrology Sepsis - from penile cellulitis as etiology, f/u cultures. Previously with coag negative staph on PD culture. F/u repeat culture HTN - cont meds DM type 2 insulin requiring - now hyperglycemic, previously with hypoglycemic event - hypoglycemia protocol. Cont insulin basal bolus plus once out of DKA Severe protein calorie malnutrition - unclear etiology, albumin 1.2, definitely has inconsistent PO intake. 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 U/S shows no abscess - painless ulcer concerning. Syphilis testing negative previously. Wound care to see Gait instability - needs further PT Anemia - of chronic renal disease Hyperphosphatemia - likely related to phos binder compliance difficulties. Will add phos binder, d/w nephrology FEN - Renal ADA PPX - Heparin TID FULL CODE Dispo - inpatient likely for at least 2 midnights History of Present Illness History of Present Illness Mr Easton is a 53yo M w/ PMHx hypertension, diabetes, and end-stage renal disease previously on hemodialysis who transitioned to peritoneal dialysis mid 2018. Presented to [place] via EMS with hyperglycemia and altered mental status. The patient's relatives who lives out of state was talking to him on the phone and thought that he sounded unusual. EMS found the patient on the couch and the patient admits to sitting there for 3 days. He had urine and feces on him. His initial blood sugar was well over 400. He was alert to himself only at first. He was becoming more alert during transport. Patient denies any falls. He denies drinking alcohol though his family is concerned he has been drinking. ETOH level not detectable. The patient is a long-standing diabetic. He is on dialysis. He says that he used peritoneal dialysis last night. He does not have any additional specific complaints. He denies any falls or trauma. CXR clear BUN 65, Cr 9.5, Albumin 1.2, WBC 13, Hb 9.4, his anion gap is 22. His blood sugar was 484. Lactate 4. Alkaline phosphatase 583. Called for admission for further treatment of his confusion and labs abnormalities. No nephrology services at [facility] so transferred to [facility]. Gap closed, eating. Still confused. His brother from [place], [place] has called and noted that he has called adult protective services on Mr Easton's . Patient does not want to discuss this with me. He is amenable to rehab referral and outpatient referral to urology as well. Denies CP. Mild SOB. Penile pain and bilateral hand pain. Vitals Vitals Vital Signs Date Time Temp Pulse Resp B/P (MAP) Pulse Ox O2 Delivery O2 Flow Rate FiO2 10/09/19 11:06 98.3 116 20 115/57 (76) 96 Nasal Cannula 2.0 98.3 Physical Exam Physical Exam GENERAL: alert awake male in nad but slow to respond HEENT: Normocephalic, atraumatic, anicteric. No thrush. NECK: No tenderness. Supple, no JVD, LUNGS: Clear. HEART: S1, S2. ABDOMEN: Soft. PD catheter in place, nontender, nondistended. GENITOURINARY: Penile swelling, min redness with eschar like lesion,, No purulence noted EXTREMITIES: no pedal edema SKIN: Dry skin. No cyanosis.superficial skin erythema on back pressure changes NEUROLOGIC: nonfocal grossly, has gen weakness PSYCHIATRIC axox3 male in nad General: Alert, Cooperative, No acute distress Lungs: Clear, Other Abdomen: Normal bowel sounds, Soft, No tenderness, No hepatosplenomegaly, No masses, Other (PD catheter) Extremities: No clubbing, No cyanosis, Normal pulses, No tenderness/swelling Skin: Other (Penile ulcer, unable to assess glans, appears to have phimosis) Labs LABS Laboratory Tests Test 10/08/19 15:32 10/08/19 16:28 10/08/19 17:50 10/08/19 18:23 Glucose (Fingerstick) 229 mg/dL (70-99) 170 mg/dL (70-99) 106 mg/dL (70-99) Sodium Level 139 mmol/L (136-145) Potassium Level 4.4 mmol/L (3.5-5.1) Chloride Level 100 mmol/L (98-107) Carbon Dioxide Level 26 mmol/L (21-32) Anion Gap 13 (6-14) Blood Urea Nitrogen 67 mg/dL (8-26) Creatinine 9.5 mg/dL (0.7-1.3) Estimated GFR (Cockcroft-Gault) 5.8 Glucose Level 109 mg/dL (70-99) Lactic Acid Level 4.1 mmol/L (0.4-2.0) Calcium Level 8.9 mg/dL (8.5-10.1) Phosphorus Level 11.3 mg/dL (2.6-4.7) Magnesium Level 2.2 mg/dL (1.8-2.4) Test 10/08/19 21:00 10/08/19 21:17 10/08/19 23:37 10/09/19 02:28 Glucose (Fingerstick) 42 mg/dL (70-99) 119 mg/dL (70-99) 128 mg/dL (70-99) 168 mg/dL (70-99) Test 10/09/19 03:44 10/09/19 07:32 10/09/19 11:34 Sodium Level 141 mmol/L (136-145) Potassium Level 4.9 mmol/L (3.5-5.1) Chloride Level 97 mmol/L (98-107) Carbon Dioxide Level 22 mmol/L (21-32) Anion Gap 22 (6-14) Blood Urea Nitrogen 67 mg/dL (8-26) Creatinine 9.7 mg/dL (0.7-1.3) Estimated GFR (Cockcroft-Gault) 5.7 BUN/Creatinine Ratio 7 (6-20) Glucose Level 205 mg/dL (70-99) Calcium Level 8.7 mg/dL (8.5-10.1) Total Bilirubin 0.3 mg/dL (0.2-1.0) Aspartate Amino Transf (AST/SGOT) 17 U/L (15-37) Alanine Aminotransferase (ALT/SGPT) 13 U/L (16-63) Alkaline Phosphatase 517 U/L (46-116) Total Protein 4.5 g/dL (6.4-8.2) Albumin 1.1 g/dL (3.4-5.0) Albumin/Globulin Ratio 0.3 (1.0-1.7) Procalcitonin 31.63 ng/mL (0.00-0.10) Glucose (Fingerstick) 276 mg/dL (70-99) 359 mg/dL (70-99) Comment Review of Relevant I have reviewed the following items alex (where applicable) has been applied. Labs Laboratory Tests Test 10/08/19 15:32 10/08/19 16:28 10/08/19 17:50 10/08/19 18:23 Glucose (Fingerstick) 229 mg/dL (70-99) 170 mg/dL (70-99) 106 mg/dL (70-99) Sodium Level 139 mmol/L (136-145) Potassium Level 4.4 mmol/L (3.5-5.1) Chloride Level 100 mmol/L (98-107) Carbon Dioxide Level 26 mmol/L (21-32) Anion Gap 13 (6-14) Blood Urea Nitrogen 67 mg/dL (8-26) Creatinine 9.5 mg/dL (0.7-1.3) Estimated GFR (Cockcroft-Gault) 5.8 Glucose Level 109 mg/dL (70-99) Lactic Acid Level 4.1 mmol/L (0.4-2.0) Calcium Level 8.9 mg/dL (8.5-10.1) Phosphorus Level 11.3 mg/dL (2.6-4.7) Magnesium Level 2.2 mg/dL (1.8-2.4) Test 10/08/19 21:00 10/08/19 21:17 10/08/19 23:37 10/09/19 02:28 Glucose (Fingerstick) 42 mg/dL (70-99) 119 mg/dL (70-99) 128 mg/dL (70-99) 168 mg/dL (70-99) Test 10/09/19 03:44 10/09/19 07:32 10/09/19 11:34 Sodium Level 141 mmol/L (136-145) Potassium Level 4.9 mmol/L (3.5-5.1) Chloride Level 97 mmol/L (98-107) Carbon Dioxide Level 22 mmol/L (21-32) Anion Gap 22 (6-14) Blood Urea Nitrogen 67 mg/dL (8-26) Creatinine 9.7 mg/dL (0.7-1.3) Estimated GFR (Cockcroft-Gault) 5.7 BUN/Creatinine Ratio 7 (6-20) Glucose Level 205 mg/dL (70-99) Calcium Level 8.7 mg/dL (8.5-10.1) Total Bilirubin 0.3 mg/dL (0.2-1.0) Aspartate Amino Transf (AST/SGOT) 17 U/L (15-37) Alanine Aminotransferase (ALT/SGPT) 13 U/L (16-63) Alkaline Phosphatase 517 U/L (46-116) Total Protein 4.5 g/dL (6.4-8.2) Albumin 1.1 g/dL (3.4-5.0) Albumin/Globulin Ratio 0.3 (1.0-1.7) Procalcitonin 31.63 ng/mL (0.00-0.10) Glucose (Fingerstick) 276 mg/dL (70-99) 359 mg/dL (70-99) Laboratory Tests Test 10/08/19 15:32 10/08/19 16:28 10/08/19 17:50 10/08/19 18:23 Glucose (Fingerstick) 229 mg/dL (70-99) 170 mg/dL (70-99) 106 mg/dL (70-99) Sodium Level 139 mmol/L (136-145) Potassium Level 4.4 mmol/L (3.5-5.1) Chloride Level 100 mmol/L (98-107) Carbon Dioxide Level 26 mmol/L (21-32) Anion Gap 13 (6-14) Blood Urea Nitrogen 67 mg/dL (8-26) Creatinine 9.5 mg/dL (0.7-1.3) Estimated GFR (Cockcroft-Gault) 5.8 Glucose Level 109 mg/dL (70-99) Lactic Acid Level 4.1 mmol/L (0.4-2.0) Calcium Level 8.9 mg/dL (8.5-10.1) Phosphorus Level 11.3 mg/dL (2.6-4.7) Magnesium Level 2.2 mg/dL (1.8-2.4) Test 10/08/19 21:00 1/20/20 21:17 10/08/19 23:37 10/09/19 02:28 Glucose (Fingerstick) 42 mg/dL (70-99) 119 mg/dL (70-99) 128 mg/dL (70-99) 168 mg/dL (70-99) Test 10/09/19 03:44 10/09/19 07:32 10/09/19 11:34 Sodium Level 141 mmol/L (136-145) Potassium Level 4.9 mmol/L (3.5-5.1) Chloride Level 97 mmol/L (98-107) Carbon Dioxide Level 22 mmol/L (21-32) Anion Gap 22 (6-14) Blood Urea Nitrogen 67 mg/dL (8-26) Creatinine 9.7 mg/dL (0.7-1.3) Estimated GFR (Cockcroft-Gault) 5.7 BUN/Creatinine Ratio 7 (6-20) Glucose Level 205 mg/dL (70-99) Calcium Level 8.7 mg/dL (8.5-10.1) Total Bilirubin 0.3 mg/dL (0.2-1.0) Aspartate Amino Transf (AST/SGOT) 17 U/L (15-37) Alanine Aminotransferase (ALT/SGPT) 13 U/L (16-63) Alkaline Phosphatase 517 U/L (46-116) Total Protein 4.5 g/dL (6.4-8.2) Albumin 1.1 g/dL (3.4-5.0) Albumin/Globulin Ratio 0.3 (1.0-1.7) Procalcitonin 31.63 ng/mL (0.00-0.10) Glucose (Fingerstick) 276 mg/dL (70-99) 359 mg/dL (70-99) Medications Current Medications Ondansetron HCl (Zofran) 4 mg PRN Q4HRS PRN IV NAUSEA/VOMITING; Start 10/08/19 at 16:30 Acetaminophen (Tylenol) 650 mg PRN Q4HRS PRN PO TEMP OVER 100.4F OR MILD PAIN; Start 10/08/19 at 16:30 Docusate Sodium (Colace) 100 mg PRN BID PRN PO CONSTIPATION; Start 10/08/19 at 16:30 Insulin Human Lispro (HumaLOG) 0-7 UNITS TIDACHC SQ Last administered on 10/09/19at 10:18; Start 10/08/19 at 21:00 Dextrose (Dextrose 50%-Water Syringe) 12.5 gm PRN Q15MIN PRN IV SEE COMMENTS Last administered on 10/08/19at 21:05; Start 10/08/19 at 17:00 Dextrose (Iv Dextrose 5%) 250 ml PRN Q15MIN PRN IV SEE COMMENTS; Start 10/08/19 at 17:00 Aspirin (Ecotrin) 81 mg DAILYWBKFT PO Last administered on 10/09/19at 10:02; Start 10/09/19 at 08:00 Atorvastatin Calcium (Lipitor) 40 mg HS PO Last administered on 10/08/19at 20:56; Start 10/08/19 at 21:00 Furosemide (Lasix) 80 mg BID94 PO Last administered on 10/09/19at 10:02; Start 10/08/19 at 18:00 Lactobacillus Rhamnosus (Culturelle) 1 cap BID PO Last administered on 10/09/19at 10:02; Start 10/08/19 at 21:00 Montelukast Sodium (Singulair) 10 mg HS PRN PO ALLERGIES; Start 10/08/19 at 17:00 Ondansetron HCl (Zofran Odt) 4 mg PRN Q6HRS PRN PO NAUSEA; Start 10/08/19 at 17:00 Tamsulosin HCl (Flomax) 0.4 mg HS PO Last administered on 10/08/19at 20:56; Start 10/08/19 at 21:00 Tramadol HCl (Ultram) 50 mg PRN Q6HRS PRN PO MODERATE PAIN; Start 10/08/19 at 17:00 Insulin Glargine (Lantus Syringe) 10 unit QHS SQ ; Start 10/08/19 at 21:00 Losartan Potassium (Cozaar) 100 mg HS PO Last administered on 10/08/19at 20:56; Start 10/08/19 at 21:00 Pantoprazole Sodium (Protonix) 40 mg DAILYAC PO Last administered on 10/09/19at 10:02; Start 10/09/19 at 07:30 Sodium Chloride 500 ml @ 500 mls/hr 1X ONCE IV Last administered on 10/08/19at 20:00; Start 10/08/19 at 20:00; Stop 10/08/19 at 20:59; Status DC Calcium Acetate (Phoslo) 1,334 mg TIDWMEALS PO Last administered on 10/09/19at 10:03; Start 10/08/19 at 20:00 Vitamin A/Vitamin D (Vitamin A & D Ointment) 1 lucero PRN Q1HR PRN TP SKIN PROTECTION; Start 10/09/19 at 09:00 Doxycycline Hyclate (Vibra-Tab) 100 mg BID PO Last administered on 10/09/19at 11:05; Start 10/09/19 at 11:00 Fluconazole (Diflucan) 100 mg DAILY PO Last administered on 10/09/19at 11:05; Start 10/09/19 at 10:30 Amoxicillin/ Clavulanate Potassium (Augmentin 500/ 125mg) 1 tab DAILY PO Last administered on 10/09/19at 11:06; Start 10/09/19 at 10:30 Active Scripts Active Tramadol Hcl 50 Mg Tablet 50 Mg PO PRN Q6HRS PRN 3 Days Culturelle (Lactobacillus Rhamnosus Gg) 1 Each Cap.sprink 1 Cap PO BID 7 Days [Fluconazole] 100 MG Tablet 100 Mg PO DAILY 7 Days Doxycycline Hyclate 100 Mg Tablet 100 Mg PO BID 7 Days Amox Tr-K Clv 500-125 Mg Tab (Amoxicillin/Potassium Clav) 1 Each Tablet 1 Tab PO DAILY 7 Days Aspirin Ec (Aspirin) 81 Mg Tablet. 81 Mg PO DAILYWBKFT Reported Glyburide 5 Mg Tablet 5 Mg PO DAILY Lantus Solostar (Insulin Glargine,Hum.rec.anlog) 100 Unit/1 Ml Insuln.pen 10 Unit SQ QHS Humalog (Insulin Lispro) 100 Unit/1 Ml Cartridge 100 Unit SQ TIDWMEALS Omeprazole 20 Mg Tablet. 20 Mg PO DAILY Calcitriol 0.5 Mcg Capsule 0.5 Mcg PO DAILY Furosemide 80 Mg Tablet 80 Mg PO BID Glucagen (Glucagon,Human Recombinant) 1 Mg Vial 1 PRN PRN Tamsulosin Hcl 0.4 Mg Cap.er.24h 1 Cap PO HS Montelukast Sodium Tablet (Montelukast Sodium) 10 Mg Tablet 1 Tab PO HS PRN Ondansetron Odt (Ondansetron) 4 Mg Tab.rapdis 1 Tab PO PRN Q6-8HRS PRN Lantus Solostar (Insulin Glargine,Hum.rec.anlog) 100 Unit/1 Ml Insuln.pen 11 Unit SQ QHS Humalog (Insulin Lispro) 100 Unit/1 Ml Cartridge 22 Unit SQ TIDWMEALS Cozaar (Losartan Potassium) 100 Mg Tablet 100 Mg PO HS Carvedilol 25 Mg Tablet 25 Mg PO BIDWMEALS Atorvastatin Calcium 40 Mg Tablet 40 Mg PO HS Amlodipine Besylate 10 Mg Tablet 10 Mg PO DAILY Vitals/I & O Vital Sign - Last 24 Hours 10/08/19 10/08/19 10/08/19 10/08/19 15:30 19:20 20:56 23:55 Temp 97.3 97.4 98.1 97.3 97.4 98.1 Pulse 91 99 99 103 Resp 16 16 16 B/P (MAP) 105/55 (72) 141/54 (83) 141/54 134/68 (90) Pulse Ox 100 98 98 O2 Delivery Nasal Cannula Nasal Cannula Nasal Cannula O2 Flow Rate 2.0 2.0 2.0 10/09/19 10/09/19 10/09/19 03:25 07:15 11:06 Temp 98.9 98.1 98.3 98.9 98.1 98.3 Pulse 113 109 116 Resp 16 18 20 B/P (MAP) 143/83 (103) 140/57 (84) 115/57 (76) Pulse Ox 97 95 96 O2 Delivery Nasal Cannula Nasal Cannula Nasal Cannula O2 Flow Rate 2.0 2.0 2.0 Intake and Output 10/08/19 10/08/19 10/09/19 15:00 23:00 07:00 Intake Total 100 ml 220 ml Balance 100 ml 220 ml JOSE SOLANO MD Oct 09, 2019 12:11
--- NOTE | 2019-10-09 13:03 | NUR ---
SS following up with discharge planning. SS phoned and faxed referral to [facility], ; fax [phone]. SS will await acceptance decision and will proceed accordingly.
[2019-10-09 15:09] VITALS: BP 117/41
[2019-10-09 19:00] VITALS: BP 86/37
[2019-10-09] MEDS: TAMSULOSIN 0.4 MG CAP.ER.24H. PO SCH (21:30)
[2019-10-09] MEDS: ATORVASTATIN CALCIUM 40 MG TABLET. PO SCH (21:30)
[2019-10-09] MEDS: LOSARTAN POTASSIUM 50 MG TABLET. PO SCH (21:30)
[2019-10-09] MEDS: INSULIN GLARGINE SYRINGE. SQ SCH (21:42)
[2019-10-09 23:00] VITALS: BP 130/61
[2019-10-10 03:00] VITALS: BP 152/71
[2019-10-10 04:33] LABS: BASO % 0 % (0-3); EOS % 0 % (0-3); HEMATOCRIT 27.3 % (39.0-53.0); HEMOGLOBIN 8.5 g/dL (13.0-17.5); LYMPH # 0.9 x10^3/uL (1.0-4.8); LYMPH % 6 % (24-48); MEAN CORPUSCULAR HEMOGLOBIN 30 pg (25-35); MEAN CORPUSCULAR HGB CONC 31 g/dL (31-37); MEAN CORPUSCULAR VOLUME 95 fL (79-100); MONO # 1.1 x10^3/uL (0.0-1.1); MONO % 8 % (0-9); NEUT # 12.7 x10^3/uL (1.8-7.7); NEUT % 86 % (31-73); PLATELET COUNT 296 x10^3/uL (140-400); RED BLOOD COUNT 2.87 x10^6/uL (4.30-5.70); RED CELL DISTRIBUTION WIDTH 18.3 % (11.5-14.5); WHITE BLOOD COUNT 14.8 x10^3/uL (4.0-11.0)
[2019-10-10 05:01] LABS: CALCIUM 8.9 mg/dL (8.5-10.1); CREATININE 9.2 mg/dL (0.7-1.3); PHOSPHORUS 9.4 mg/dL (2.6-4.7); POTASSIUM 4.1 mmol/L (3.5-5.1)
[2019-10-10 07:00] VITALS: BP 140/70
[2019-10-10] MEDS: INSULIN LISPRO 300 UNITS/3 ML VIAL. SQ SCH ×4 (07:30→21:40)
--- NOTE | 2019-10-10 09:03 | PDOC ---
PROGRESS NOTES Chief Complaint Chief Complaint A/P: Acute encephalopathy - metabolic 2/2 DKA and toxic 2/2 likely infectious etiology. Still somewhat confused DKA, type 2 - off insulin GTT. will repeat BMP, able to eat, lantus tonight. Elevated alkaline phosphatase level - will monitor, no biliary problems previously Lactic acidosis - likely due to diabetes mellitus. Will trend Penile cellulitis - present on admission, likely from failure to f/u outpatient - Doxy and augmentin with fluconazole previously. Will culture and consult ID ESRD on HD transitioning to PD prior to his admission - tolerating well. Will consult nephrology Sepsis - from penile cellulitis as etiology, f/u cultures. Previously with coag negative staph on PD culture. F/u repeat culture HTN - cont meds DM type 2 insulin requiring - now hyperglycemic, previously with hypoglycemic event - hypoglycemia protocol. Cont insulin basal bolus plus once out of DKA Severe protein calorie malnutrition - unclear etiology, albumin 1.2, definitely has inconsistent PO intake. Skin Toggler to see Anemia - of chronic renal disease Penile cellulitis, could have a component of vasculature involvement. U/S shows no abscess - painless ulcer concerning. Syphilis testing negative previously. Wound care to see Gait instability - needs further PT Anemia - of chronic renal disease Hyperphosphatemia - likely related to phos binder compliance difficulties. Will add phos binder, d/w nephrology FEN - Renal ADA PPX - Heparin TID FULL CODE Dispo - inpatient likely for at least 2 midnights History of Present Illness History of Present Illness Mr Easton is a 53yo M w/ PMHx hypertension, diabetes, and end-stage renal disease previously on hemodialysis who transitioned to peritoneal dialysis mid 2018. Presented to [facility] via EMS with hyperglycemia and altered mental status. The patient's relatives who lives out of state was talking to him on the phone and thought that he sounded unusual. EMS found the patient on the couch and the patient admits to sitting there for 3 days. He had urine and feces on him. His initial blood sugar was well over 400. He was alert to himself only at first. He was becoming more alert during transport. Patient denies any falls. He denies drinking alcohol though his family is concerned he has been drinking. ETOH level not detectable. The patient is a long-standing diabetic. He is on dialysis. He says that he used peritoneal dialysis last night. He does not have any additional specific complaints. He denies any falls or trauma. CXR clear BUN 65, Cr 9.5, Albumin 1.2, WBC 13, Hb 9.4, his anion gap is 22. His blood sugar was 484. Lactate 4. Alkaline phosphatase 583. Called for admission for further treatment of his confusion and labs abnormalities. No nephrology services at [facility] so transferred to [facility]. 10/09: Gap closed, eating. Still confused. His brother from [place], [place] has called and noted that he has called adult protective services on Mr Easton's . Patient does not want to discuss this with me. He is amenable to rehab referral and outpatient referral to urology as well. WBC still up. Denies CP. Mild SOB. Penile pain and bilateral hand pain as well as abdominal pain. He is still confused today. Vitals Vitals Vital Signs Date Time Temp Pulse Resp B/P (MAP) Pulse Ox O2 Delivery O2 Flow Rate FiO2 10/10/19 07:00 98.1 87 20 140/70 (93) 95 Nasal Cannula 2.0 98.1 Physical Exam Physical Exam GENERAL: alert awake male in nad but slow to respond HEENT: Normocephalic, atraumatic, anicteric. No thrush. NECK: No tenderness. Supple, no JVD, LUNGS: Clear. HEART: S1, S2. ABDOMEN: Soft. PD catheter in place, nontender, nondistended. GENITOURINARY: Penile swelling, min redness with eschar like lesion,, No purulence noted EXTREMITIES: no pedal edema SKIN: Dry skin. No cyanosis.superficial skin erythema on back pressure changes NEUROLOGIC: nonfocal grossly, has gen weakness PSYCHIATRIC axox3 male in nad General: Alert, Cooperative, No acute distress Lungs: Clear, Other Abdomen: Normal bowel sounds, Soft, No tenderness, No hepatosplenomegaly, No masses, Other (PD catheter) Extremities: No clubbing, No cyanosis, Normal pulses, No tenderness/swelling Skin: Other (Penile ulcer, unable to assess glans, appears to have phimosis) Labs LABS Laboratory Tests Test 10/09/19 11:34 10/09/19 16:40 10/09/19 21:35 10/10/19 03:25 Glucose (Fingerstick) 359 mg/dL (70-99) 303 mg/dL (70-99) 191 mg/dL (70-99) White Blood Count 14.8 x10^3/uL (4.0-11.0) Red Blood Count 2.87 x10^6/uL (4.30-5.70) Hemoglobin 8.5 g/dL (13.0-17.5) Hematocrit 27.3 % (39.0-53.0) Mean Corpuscular Volume 95 fL (79-100) Mean Corpuscular Hemoglobin 30 pg (25-35) Mean Corpuscular Hemoglobin Concent 31 g/dL (31-37) Red Cell Distribution Width 18.3 % (11.5-14.5) Platelet Count 296 x10^3/uL (140-400) Neutrophils (%) (Auto) 86 % (31-73) Lymphocytes (%) (Auto) 6 % (24-48) Monocytes (%) (Auto) 8 % (0-9) Eosinophils (%) (Auto) 0 % (0-3) Basophils (%) (Auto) 0 % (0-3) Neutrophils # (Auto) 12.7 x10^3/uL (1.8-7.7) Lymphocytes # (Auto) 0.9 x10^3/uL (1.0-4.8) Monocytes # (Auto) 1.1 x10^3/uL (0.0-1.1) Eosinophils # (Auto) 0.0 x10^3/uL (0.0-0.7) Basophils # (Auto) 0.0 x10^3/uL (0.0-0.2) Sodium Level 139 mmol/L (136-145) Potassium Level 4.1 mmol/L (3.5-5.1) Chloride Level 97 mmol/L (98-107) Carbon Dioxide Level 26 mmol/L (21-32) Anion Gap 16 (6-14) Blood Urea Nitrogen 64 mg/dL (8-26) Creatinine 9.2 mg/dL (0.7-1.3) Estimated GFR (Cockcroft-Gault) 6.0 Glucose Level 220 mg/dL (70-99) Calcium Level 8.9 mg/dL (8.5-10.1) Phosphorus Level 9.4 mg/dL (2.6-4.7) Albumin 1.0 g/dL (3.4-5.0) Comment Review of Relevant I have reviewed the following items alex (where applicable) has been applied. Labs Laboratory Tests Test 10/08/19 15:32 10/08/19 16:28 10/08/19 17:50 10/08/19 18:23 Glucose (Fingerstick) 229 mg/dL (70-99) 170 mg/dL (70-99) 106 mg/dL (70-99) Sodium Level 139 mmol/L (136-145) Potassium Level 4.4 mmol/L (3.5-5.1) Chloride Level 100 mmol/L (98-107) Carbon Dioxide Level 26 mmol/L (21-32) Anion Gap 13 (6-14) Blood Urea Nitrogen 67 mg/dL (8-26) Creatinine 9.5 mg/dL (0.7-1.3) Estimated GFR (Cockcroft-Gault) 5.8 Glucose Level 109 mg/dL (70-99) Lactic Acid Level 4.1 mmol/L (0.4-2.0) Calcium Level 8.9 mg/dL (8.5-10.1) Phosphorus Level 11.3 mg/dL (2.6-4.7) Magnesium Level 2.2 mg/dL (1.8-2.4) Test 10/08/19 21:00 10/08/19 21:17 10/08/19 23:37 10/09/19 02:28 Glucose (Fingerstick) 42 mg/dL (70-99) 119 mg/dL (70-99) 128 mg/dL (70-99) 168 mg/dL (70-99) Test 10/09/19 03:44 10/09/19 07:32 10/09/19 11:34 10/09/19 16:40 Sodium Level 141 mmol/L (136-145) Potassium Level 4.9 mmol/L (3.5-5.1) Chloride Level 97 mmol/L (98-107) Carbon Dioxide Level 22 mmol/L (21-32) Anion Gap 22 (6-14) Blood Urea Nitrogen 67 mg/dL (8-26) Creatinine 9.7 mg/dL (0.7-1.3) Estimated GFR (Cockcroft-Gault) 5.7 BUN/Creatinine Ratio 7 (6-20) Glucose Level 205 mg/dL (70-99) Calcium Level 8.7 mg/dL (8.5-10.1) Total Bilirubin 0.3 mg/dL (0.2-1.0) Aspartate Amino Transf (AST/SGOT) 17 U/L (15-37) Alanine Aminotransferase (ALT/SGPT) 13 U/L (16-63) Alkaline Phosphatase 517 U/L (46-116) Total Protein 4.5 g/dL (6.4-8.2) Albumin 1.1 g/dL (3.4-5.0) Albumin/Globulin Ratio 0.3 (1.0-1.7) Procalcitonin 31.63 ng/mL (0.00-0.10) Glucose (Fingerstick) 276 mg/dL (70-99) 359 mg/dL (70-99) 303 mg/dL (70-99) Test 10/09/19 21:35 10/10/19 03:25 Glucose (Fingerstick) 191 mg/dL (70-99) White Blood Count 14.8 x10^3/uL (4.0-11.0) Red Blood Count 2.87 x10^6/uL (4.30-5.70) Hemoglobin 8.5 g/dL (13.0-17.5) Hematocrit 27.3 % (39.0-53.0) Mean Corpuscular Volume 95 fL (79-100) Mean Corpuscular Hemoglobin 30 pg (25-35) Mean Corpuscular Hemoglobin Concent 31 g/dL (31-37) Red Cell Distribution Width 18.3 % (11.5-14.5) Platelet Count 296 x10^3/uL (140-400) Neutrophils (%) (Auto) 86 % (31-73) Lymphocytes (%) (Auto) 6 % (24-48) Monocytes (%) (Auto) 8 % (0-9) Eosinophils (%) (Auto) 0 % (0-3) Basophils (%) (Auto) 0 % (0-3) Neutrophils # (Auto) 12.7 x10^3/uL (1.8-7.7) Lymphocytes # (Auto) 0.9 x10^3/uL (1.0-4.8) Monocytes # (Auto) 1.1 x10^3/uL (0.0-1.1) Eosinophils # (Auto) 0.0 x10^3/uL (0.0-0.7) Basophils # (Auto) 0.0 x10^3/uL (0.0-0.2) Sodium Level 139 mmol/L (136-145) Potassium Level 4.1 mmol/L (3.5-5.1) Chloride Level 97 mmol/L (98-107) Carbon Dioxide Level 26 mmol/L (21-32) Anion Gap 16 (6-14) Blood Urea Nitrogen 64 mg/dL (8-26) Creatinine 9.2 mg/dL (0.7-1.3) Estimated GFR (Cockcroft-Gault) 6.0 Glucose Level 220 mg/dL (70-99) Calcium Level 8.9 mg/dL (8.5-10.1) Phosphorus Level 9.4 mg/dL (2.6-4.7) Albumin 1.0 g/dL (3.4-5.0) Laboratory Tests Test 10/09/19 11:34 10/09/19 16:40 10/09/19 21:35 10/10/19 03:25 Glucose (Fingerstick) 359 mg/dL (70-99) 303 mg/dL (70-99) 191 mg/dL (70-99) White Blood Count 14.8 x10^3/uL (4.0-11.0) Red Blood Count 2.87 x10^6/uL (4.30-5.70) Hemoglobin 8.5 g/dL (13.0-17.5) Hematocrit 27.3 % (39.0-53.0) Mean Corpuscular Volume 95 fL (79-100) Mean Corpuscular Hemoglobin 30 pg (25-35) Mean Corpuscular Hemoglobin Concent 31 g/dL (31-37) Red Cell Distribution Width 18.3 % (11.5-14.5) Platelet Count 296 x10^3/uL (140-400) Neutrophils (%) (Auto) 86 % (31-73) Lymphocytes (%) (Auto) 6 % (24-48) Monocytes (%) (Auto) 8 % (0-9) Eosinophils (%) (Auto) 0 % (0-3) Basophils (%) (Auto) 0 % (0-3) Neutrophils # (Auto) 12.7 x10^3/uL (1.8-7.7) Lymphocytes # (Auto) 0.9 x10^3/uL (1.0-4.8) Monocytes # (Auto) 1.1 x10^3/uL (0.0-1.1) Eosinophils # (Auto) 0.0 x10^3/uL (0.0-0.7) Basophils # (Auto) 0.0 x10^3/uL (0.0-0.2) Sodium Level 139 mmol/L (136-145) Potassium Level 4.1 mmol/L (3.5-5.1) Chloride Level 97 mmol/L (98-107) Carbon Dioxide Level 26 mmol/L (21-32) Anion Gap 16 (6-14) Blood Urea Nitrogen 64 mg/dL (8-26) Creatinine 9.2 mg/dL (0.7-1.3) Estimated GFR (Cockcroft-Gault) 6.0 Glucose Level 220 mg/dL (70-99) Calcium Level 8.9 mg/dL (8.5-10.1) Phosphorus Level 9.4 mg/dL (2.6-4.7) Albumin 1.0 g/dL (3.4-5.0) Microbiology 10/08/19 Blood Culture - Preliminary, Resulted NO GROWTH AFTER 1 DAY Medications Current Medications Ondansetron HCl (Zofran) 4 mg PRN Q4HRS PRN IV NAUSEA/VOMITING; Start 10/08/19 at 16:30 Acetaminophen (Tylenol) 650 mg PRN Q4HRS PRN PO TEMP OVER 100.4F OR MILD PAIN; Start 10/08/19 at 16:30 Docusate Sodium (Colace) 100 mg PRN BID PRN PO CONSTIPATION; Start 10/08/19 at 16:30 Insulin Human Lispro (HumaLOG) 0-7 UNITS TIDACHC SQ Last administered on 10/09/19at 17:39; Start 10/08/19 at 21:00 Dextrose (Dextrose 50%-Water Syringe) 12.5 gm PRN Q15MIN PRN IV SEE COMMENTS Last administered on 10/08/19at 21:05; Start 10/08/19 at 17:00 Dextrose (Iv Dextrose 5%) 250 ml PRN Q15MIN PRN IV SEE COMMENTS; Start 10/08/19 at 17:00 Aspirin (Ecotrin) 81 mg DAILYWBKFT PO Last administered on 10/09/19at 10:02; Start 10/09/19 at 08:00 Atorvastatin Calcium (Lipitor) 40 mg HS PO Last administered on 10/09/19at 21:30; Start 10/08/19 at 21:00 Furosemide (Lasix) 80 mg BID94 PO Last administered on 10/09/19at 17:25; Start 10/08/19 at 18:00 Lactobacillus Rhamnosus (Culturelle) 1 cap BID PO Last administered on 10/09/19at 21:30; Start 10/08/19 at 21:00 Montelukast Sodium (Singulair) 10 mg HS PRN PO ALLERGIES; Start 10/08/19 at 17:00 Ondansetron HCl (Zofran Odt) 4 mg PRN Q6HRS PRN PO NAUSEA; Start 10/08/19 at 17:00 Tamsulosin HCl (Flomax) 0.4 mg HS PO Last administered on 10/09/19at 21:30; Start 10/08/19 at 21:00 Tramadol HCl (Ultram) 50 mg PRN Q6HRS PRN PO MODERATE PAIN; Start 10/08/19 at 17:00 Insulin Glargine (Lantus Syringe) 10 unit QHS SQ Last administered on 10/09/19at 21:42; Start 10/08/19 at 21:00 Losartan Potassium (Cozaar) 100 mg HS PO Last administered on 10/09/19at 21:30; Start 10/08/19 at 21:00 Pantoprazole Sodium (Protonix) 40 mg DAILYAC PO Last administered on 10/09/19at 10:02; Start 10/09/19 at 07:30 Sodium Chloride 500 ml @ 500 mls/hr 1X ONCE IV Last administered on 10/08/19at 20:00; Start 10/08/19 at 20:00; Stop 10/08/19 at 20:59; Status DC Calcium Acetate (Phoslo) 1,334 mg TIDWMEALS PO Last administered on 10/09/19at 17:25; Start 10/08/19 at 20:00 Vitamin A/Vitamin D (Vitamin A & D Ointment) 1 lucero PRN Q1HR PRN TP SKIN PROTECTION; Start 10/09/19 at 09:00 Doxycycline Hyclate (Vibra-Tab) 100 mg BID PO Last administered on 10/09/19at 21:31; Start 10/09/19 at 11:00 Fluconazole (Diflucan) 100 mg DAILY PO Last administered on 10/09/19at 11:05; Start 10/09/19 at 10:30 Amoxicillin/ Clavulanate Potassium (Augmentin 500/ 125mg) 1 tab DAILY PO Last administered on 10/09/19at 11:06; Start 10/09/19 at 10:30 Active Scripts Active Tramadol Hcl 50 Mg Tablet 50 Mg PO PRN Q6HRS PRN 3 Days Culturelle (Lactobacillus Rhamnosus Gg) 1 Each Cap.sprink 1 Cap PO BID 7 Days [Fluconazole] 100 MG Tablet 100 Mg PO DAILY 7 Days Doxycycline Hyclate 100 Mg Tablet 100 Mg PO BID 7 Days Amox Tr-K Clv 500-125 Mg Tab (Amoxicillin/Potassium Clav) 1 Each Tablet 1 Tab PO DAILY 7 Days Aspirin Ec (Aspirin) 81 Mg Tablet. 81 Mg PO DAILYWBKFT Reported Glyburide 5 Mg Tablet 5 Mg PO DAILY Lantus Solostar (Insulin Glargine,Hum.rec.anlog) 100 Unit/1 Ml Insuln.pen 10 Unit SQ QHS Humalog (Insulin Lispro) 100 Unit/1 Ml Cartridge 100 Unit SQ TIDWMEALS Omeprazole 20 Mg Tablet. 20 Mg PO DAILY Calcitriol 0.5 Mcg Capsule 0.5 Mcg PO DAILY Furosemide 80 Mg Tablet 80 Mg PO BID Glucagen (Glucagon,Human Recombinant) 1 Mg Vial 1 PRN PRN Tamsulosin Hcl 0.4 Mg Cap.er.24h 1 Cap PO HS Montelukast Sodium Tablet (Montelukast Sodium) 10 Mg Tablet 1 Tab PO HS PRN Ondansetron Odt (Ondansetron) 4 Mg Tab.rapdis 1 Tab PO PRN Q6-8HRS PRN Lantus Solostar (Insulin Glargine,Hum.rec.anlog) 100 Unit/1 Ml Insuln.pen 11 Unit SQ QHS Humalog (Insulin Lispro) 100 Unit/1 Ml Cartridge 22 Unit SQ TIDWMEALS Cozaar (Losartan Potassium) 100 Mg Tablet 100 Mg PO HS Carvedilol 25 Mg Tablet 25 Mg PO BIDWMEALS Atorvastatin Calcium 40 Mg Tablet 40 Mg PO HS Amlodipine Besylate 10 Mg Tablet 10 Mg PO DAILY Vitals/I & O Vital Sign - Last 24 Hours 10/09/19 10/09/19 10/09/19 10/09/19 11:06 15:09 19:00 20:00 Temp 98.3 97.9 97.3 98.3 97.9 97.3 Pulse 116 99 46 Resp 18 B/P (MAP) 115/57 (76) 117/41 (66) 86/37 (53) Pulse Ox 96 95 99 O2 Delivery Nasal Cannula Nasal Cannula Nasal Cannula Nasal Cannula O2 Flow Rate 2.0 2.0 2.0 10/09/19 10/09/19 10/10/19 10/10/19 21:30 23:00 03:00 07:00 Temp 97.9 98.5 98.1 97.9 98.5 98.1 Pulse 99 109 107 87 Resp 20 B/P (MAP) 117/41 130/61 (84) 152/71 (98) 140/70 (93) Pulse Ox 98 97 95 O2 Delivery Nasal Cannula Nasal Cannula Nasal Cannula O2 Flow Rate 2.0 2.0 2.0 Intake and Output 10/09/19 10/09/19 10/10/19 15:00 23:00 07:00 Intake Total 120 ml 200 ml 170 ml Output Total 0 ml Balance 120 ml 200 ml 170 ml JOSE SOLANO MD Oct 10, 2019 09:03
--- NOTE | 2019-10-10 09:57 | PDOC ---
SUBJECTIVE ROS stable OBJECTIVE Vital Signs Vital Signs Date Time Temp Pulse Resp B/P (MAP) Pulse Ox O2 Delivery O2 Flow Rate FiO2 10/10/19 07:00 98.1 87 20 140/70 (93) 95 Nasal Cannula 2.0 98.1 I & 0 Intake and Output 10/10/19 06:59 Intake Total 490 ml Output Total 0 ml Balance 490 ml Intake Oral 490 ml Output Urine Total 0 ml # Voids 1 PHYSICAL EXAM Physical Exam General: No acute distress, HEENT: OM moist Neck Supple Lungs: Clear to auscultation, Normal air movement Heart: S1S2, RRR, no thrills, no rubs, no gallops, no murmurs Cardiovascular: S1, S2 Abdomen: Normal bowel sounds, Soft, No tenderness, PD cath in place, no e/ Exit site infection Extremities: left av fistula Skin: No rashes, No quinteros DIAGNOSIS/ASSESSMENT Assessment & Plan ESRD- Dr Riggs's pt at [facility] per Home Prescription Had a pham discussion with brother regarding PD, switching to HD etc Awaiting decision for dc to Rehab Anemia- VAN for Hgb < 10 Monitor Acute encephalopathy - metabolic 2/2 DKA and toxic 2/2 likely infectious etiology DKA, 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- On phoslo HTN - cont meds Severe protein calorie malnutrition albumin 1.1, COMMENT/RELEVANT DATA Meds Current Medications Medications (Trade) Dose Ordered Sig/Rosalino Start Time Stop Time Status Last Admin Dose Admin Acetaminophen (Tylenol) 650 mg PRN Q4HRS PRN 10/08/19 16:30 Amoxicillin/ Clavulanate Potassium (Augmentin 500/ 125mg) 1 tab DAILY 10/09/19 10:30 10/09/19 11:06 1 TAB Aspirin (Ecotrin) 81 mg DAILYWBKFT 10/09/19 08:00 10/09/19 10:02 81 MG Atorvastatin Calcium (Lipitor) 40 mg HS 10/08/19 21:00 10/09/19 21:30 40 MG Calcium Acetate (Phoslo) 1,334 mg TIDWMEALS 10/08/19 20:00 10/09/19 17:25 1,334 MG Dextrose (Dextrose 50%-Water Syringe) 12.5 gm PRN Q15MIN PRN 10/08/19 17:00 10/08/19 21:05 25 GM Dextrose (Iv Dextrose 5%) 250 ml PRN Q15MIN PRN 10/08/19 17:00 Docusate Sodium (Colace) 100 mg PRN BID PRN 10/08/19 16:30 Doxycycline Hyclate (Vibra-Tab) 100 mg BID 10/09/19 11:00 10/09/19 21:31 100 MG Fluconazole (Diflucan) 100 mg DAILY 10/09/19 10:30 10/09/19 11:05 100 MG Furosemide (Lasix) 80 mg BID94 10/08/19 18:00 10/09/19 17:25 80 MG Insulin Glargine (Lantus Syringe) 10 unit QHS 10/08/19 21:00 10/09/19 21:42 10 UNIT Insulin Human Lispro (HumaLOG) 0-7 UNITS TIDACHC 10/08/19 21:00 10/09/19 17:39 7 UNITS Lactobacillus Rhamnosus (Culturelle) 1 cap BID 10/08/19 21:00 10/09/19 21:30 1 CAP Losartan Potassium (Cozaar) 100 mg HS 10/08/19 21:00 10/09/19 21:30 100 MG Montelukast Sodium (Singulair) 10 mg HS PRN 10/08/19 17:00 Ondansetron HCl (Zofran Odt) 4 mg PRN Q6HRS PRN 10/08/19 17:00 Ondansetron HCl (Zofran) 4 mg PRN Q4HRS PRN 10/08/19 16:30 Pantoprazole Sodium (Protonix) 40 mg DAILYAC 10/09/19 07:30 10/09/19 10:02 40 MG Sodium Chloride 500 ml @ 500 mls/hr 1X ONCE 10/08/19 20:00 10/08/19 20:59 DC 10/08/19 20:00 500 MLS/HR Tamsulosin HCl (Flomax) 0.4 mg HS 10/08/19 21:00 10/09/19 21:30 0.4 MG Tramadol HCl (Ultram) 50 mg PRN Q6HRS PRN 10/08/19 17:00 Vitamin A/Vitamin D (Vitamin A & D Ointment) 1 lucero PRN Q1HR PRN 10/09/19 09:00 Lab Laboratory Tests Test 1/21/20 11:34 10/09/19 16:40 10/09/19 21:35 10/10/19 03:25 Glucose (Fingerstick) 359 mg/dL (70-99) 303 mg/dL (70-99) 191 mg/dL (70-99) White Blood Count 14.8 x10^3/uL (4.0-11.0) Red Blood Count 2.87 x10^6/uL (4.30-5.70) Hemoglobin 8.5 g/dL (13.0-17.5) Hematocrit 27.3 % (39.0-53.0) Mean Corpuscular Volume 95 fL (79-100) Mean Corpuscular Hemoglobin 30 pg (25-35) Mean Corpuscular Hemoglobin Concent 31 g/dL (31-37) Red Cell Distribution Width 18.3 % (11.5-14.5) Platelet Count 296 x10^3/uL (140-400) Neutrophils (%) (Auto) 86 % (31-73) Lymphocytes (%) (Auto) 6 % (24-48) Monocytes (%) (Auto) 8 % (0-9) Eosinophils (%) (Auto) 0 % (0-3) Basophils (%) (Auto) 0 % (0-3) Neutrophils # (Auto) 12.7 x10^3/uL (1.8-7.7) Lymphocytes # (Auto) 0.9 x10^3/uL (1.0-4.8) Monocytes # (Auto) 1.1 x10^3/uL (0.0-1.1) Eosinophils # (Auto) 0.0 x10^3/uL (0.0-0.7) Basophils # (Auto) 0.0 x10^3/uL (0.0-0.2) Sodium Level 139 mmol/L (136-145) Potassium Level 4.1 mmol/L (3.5-5.1) Chloride Level 97 mmol/L (98-107) Carbon Dioxide Level 26 mmol/L (21-32) Anion Gap 16 (6-14) Blood Urea Nitrogen 64 mg/dL (8-26) Creatinine 9.2 mg/dL (0.7-1.3) Estimated GFR (Cockcroft-Gault) 6.0 Glucose Level 220 mg/dL (70-99) Calcium Level 8.9 mg/dL (8.5-10.1) Phosphorus Level 9.4 mg/dL (2.6-4.7) Albumin 1.0 g/dL (3.4-5.0) Results All relevant outside records, renal labs, imaging studies, telemetry/EKG's were reviewed. IVAN APARICIO MD Oct 10, 2019 09:57
[2019-10-10] MEDS: DOXYCYCLINE HYCLATE 100 MG TABLET PO SCH (10:08)
[2019-10-10] MEDS: AMOXICILLIN/K CLAV 500/125MG TABLET. PO SCH (10:08)
[2019-10-10] MEDS: FLUCONAZOLE 100 MG TABLET. PO SCH (10:08)
[2019-10-10] MEDS: LACTOBACILLUS RHAMNOSUS GG 1 CAPSULE. PO SCH ×3 (10:09→21:31)
[2019-10-10] MEDS: FUROSEMIDE 80 MG TABLET. PO SCH ×2 (10:09→16:15)
[2019-10-10] MEDS: PANTOPRAZOLE 40 MG TABLET.DR. PO SCH (10:10)
[2019-10-10] MEDS: ASPIRIN ENTERIC COATED 81 MG TABLET.DR. PO SCH (10:10)
[2019-10-10] MEDS: CALCIUM ACETATE 667 MG CAPSULE PO SCH ×3 (10:10→17:35)
--- NOTE | 2019-10-10 10:21 | PDOC ---
Infectious Disease Note Subjective Subjective Pt well known to us from recent admissions Just dc Oct 03 with Augment/doxy/Fluconazole - he cannot tell me if he was taking these at home 53 yo male brought in again for mental status change and weakness to [place] via EMS with hyperglycemia and altered mental status. The patient's relatives who lives out of state was talking to him on the phone and thought that he sounded unusual. EMS found the patient on the couch and the patient admits to sitting there for 3 days. He had urine and feces on him. His initial blood sugar was well over 400. BUN 65, Cr 9.5, Albumin 1.2, WBC 13, Hb 9.4, his anion gap is 22. His blood sugar was 484. Lactate 4. Alkaline phosphatase 583. He has end-stage renal disease on PD Over the past few weeks this is recurrent 4th admission and he seems to be failing to thrive He was supposed to f/u with [facility] again for balanitis with wounds over the glans but did not Doing ok. No Pain/F/C/S/N/V/D - states pain is better ROS ROS o/w neg Vital Sign Vital Signs Vital Signs Date Time Temp Pulse Resp B/P (MAP) Pulse Ox O2 Delivery O2 Flow Rate FiO2 10/10/19 07:00 98.1 87 20 140/70 (93) 95 Nasal Cannula 2.0 98.1 Physical Exam PHYSICAL EXAM GENERAL: alert awake male in nad but slow to respond HEENT: Normocephalic, atraumatic, anicteric. No thrush. NECK: No tenderness. Supple, no JVD, LUNGS: Clear. HEART: S1, S2. ABDOMEN: Soft. PD catheter in place, nontender, nondistended. GENITOURINARY: Penile swelling, min redness with eschar like lesion,, No purulence noted - but some drainage today EXTREMITIES: no pedal edema SKIN: Dry skin. No cyanosis.superficial skin erythema on back pressure changes NEUROLOGIC: nonfocal grossly, has gen weakness PSYCHIATRIC axox3 male in nad Labs Lab Laboratory Tests Test 10/09/19 11:34 10/09/19 16:40 10/09/19 21:35 10/10/19 03:25 Glucose (Fingerstick) 359 mg/dL (70-99) 303 mg/dL (70-99) 191 mg/dL (70-99) White Blood Count 14.8 x10^3/uL (4.0-11.0) Red Blood Count 2.87 x10^6/uL (4.30-5.70) Hemoglobin 8.5 g/dL (13.0-17.5) Hematocrit 27.3 % (39.0-53.0) Mean Corpuscular Volume 95 fL (79-100) Mean Corpuscular Hemoglobin 30 pg (25-35) Mean Corpuscular Hemoglobin Concent 31 g/dL (31-37) Red Cell Distribution Width 18.3 % (11.5-14.5) Platelet Count 296 x10^3/uL (140-400) Neutrophils (%) (Auto) 86 % (31-73) Lymphocytes (%) (Auto) 6 % (24-48) Monocytes (%) (Auto) 8 % (0-9) Eosinophils (%) (Auto) 0 % (0-3) Basophils (%) (Auto) 0 % (0-3) Neutrophils # (Auto) 12.7 x10^3/uL (1.8-7.7) Lymphocytes # (Auto) 0.9 x10^3/uL (1.0-4.8) Monocytes # (Auto) 1.1 x10^3/uL (0.0-1.1) Eosinophils # (Auto) 0.0 x10^3/uL (0.0-0.7) Basophils # (Auto) 0.0 x10^3/uL (0.0-0.2) Sodium Level 139 mmol/L (136-145) Potassium Level 4.1 mmol/L (3.5-5.1) Chloride Level 97 mmol/L (98-107) Carbon Dioxide Level 26 mmol/L (21-32) Anion Gap 16 (6-14) Blood Urea Nitrogen 64 mg/dL (8-26) Creatinine 9.2 mg/dL (0.7-1.3) Estimated GFR (Cockcroft-Gault) 6.0 Glucose Level 220 mg/dL (70-99) Calcium Level 8.9 mg/dL (8.5-10.1) Phosphorus Level 9.4 mg/dL (2.6-4.7) Albumin 1.0 g/dL (3.4-5.0) Micro Microbiology 10/08/19 Blood Culture - Preliminary, Resulted NO GROWTH AFTER 1 DAY Objective Assessment 1. Leukocytosis - ? reactive - increased 2. Acute Encephalopathy. Improving likely from hyperglycemia 3. DKA 4. Balanitis chronic 5. Anemia of chronic disease. 6. End-stage renal disease, on peritoneal dialysis. 7. Peripheral vascular disease. Plan Plan of Care D/c Doxy/Augmentin Begin Vancomycin/Zosyn Cont Fluconazole Need Urology f/u F/u labs and cults Local wound care D/w Dr. Perdomo/Dr. Javed and family D/w nursing CORY NUNEZ MD Oct 10, 2019 10:21
[2019-10-10] MEDS: VANCOMYCIN PER PHARMACY MC PRN (10:42)
--- NOTE | 2019-10-10 10:44 | NUR ---
Pharmacy Vancomycin Dosing Note S: Consulted to monitor and dose vancomycin started 10/10/19. O: DUANE IQBAL is a 53 year old M with BALANITIS . Other Antibiotics: ZOSYN LABS: Last BUN: 64 Last Creatinine: 9.2 Creatinine Clearance: PERITONEAL DIALYSIS Last WBC: 14.8 Last Procalcitonin: 31.63 Tmax (past 24 hours): 98.1 Vancomycin Dosing: Dosing Weight: Actual Target Trough: 10-20 A: Based on: VANCO dosing guidelines P: 1. Begin Vancomycin 1500mg LOAD dose then Dose Per Levels 2. Follow up Random level on 10/12/19 at 0500 3. Pharmacy will continue to monitor, follow and adjust therapy as needed. MATTHEW POP [facility], 10/10/19 [id number]
[2019-10-10 11:00] VITALS: BP 110/56
[2019-10-10] MEDS ORDERED: VANCOMYCIN 1.5 GM in IV NORMAL SALINE 500ML BAG 500 ML IV ONE (11:00)
[2019-10-10] MEDS: PIPERACILLIN/TAZOBACTAM 2.25 GM in IV NORMAL SALINE 50ML 50 ML IV SCH ×2 (13:15→21:30)
[2019-10-10 15:20] VITALS: BP 99/67
[2019-10-10 19:00] VITALS: BP_SYST 113; BP_SYST 115; BP_DIAS 62; BP_DIAS 67
[2019-10-10] MEDS: TAMSULOSIN 0.4 MG CAP.ER.24H. PO SCH ×2 (21:00→21:31)
[2019-10-10] MEDS: LOSARTAN POTASSIUM 50 MG TABLET. PO SCH ×2 (21:00→21:31)
[2019-10-10] MEDS: ATORVASTATIN CALCIUM 40 MG TABLET. PO SCH ×2 (21:00→21:31)
[2019-10-10] MEDS: INSULIN GLARGINE SYRINGE. SQ SCH (21:40)
--- NOTE | 2019-10-10 22:00 | NUR ---
This nurse gave pt one of his 2100 pills to swallow and pt began to choke and cough continuously. Pt was having a hard time to recover. This nurse made pt Nothing by mouth and put in a speech consult.
[2019-10-10 23:23] VITALS: BP 101/32
[2019-10-11 03:49] VITALS: BP 95/39
[2019-10-11 07:00] VITALS: BP 119/34
[2019-10-11] MEDS: PIPERACILLIN/TAZOBACTAM 2.25 GM in IV NORMAL SALINE 50ML 50 ML IV SCH ×3 (07:02→22:06)
[2019-10-11] MEDS: PANTOPRAZOLE 40 MG TABLET.DR. PO SCH (07:30)
--- NOTE | 2019-10-11 07:51 | PDOC ---
PROGRESS NOTES Chief Complaint Chief Complaint A/P: Acute encephalopathy - metabolic 2/2 DKA and toxic 2/2 likely infectious etiology. Still somewhat confused DKA, type 2 - off insulin GTT. will repeat BMP, able to eat, lantus tonight. Elevated alkaline phosphatase level - will monitor, no biliary problems previously Lactic acidosis - likely due to diabetes mellitus. Will trend Penile cellulitis - present on admission, likely from failure to f/u outpatient - Doxy and augmentin with fluconazole previously. Will culture and consult ID ESRD on HD transitioning to PD prior to his admission - tolerating well. Will consult nephrology Sepsis - from penile cellulitis as etiology, f/u cultures. Previously with coag negative staph on PD culture. F/u repeat culture HTN - cont meds DM type 2 insulin requiring - now hyperglycemic, previously with hypoglycemic event - hypoglycemia protocol. Cont insulin basal bolus plus once out of DKA Severe protein calorie malnutrition - unclear etiology, albumin 1.2, definitely has inconsistent PO intake. Caster Helper to see Anemia - of chronic renal disease Penile cellulitis, could have a component of vasculature involvement. U/S shows no abscess - painless ulcer concerning. Syphilis testing negative previously. Wound care to see Gait instability - needs further PT Anemia - of chronic renal disease Hyperphosphatemia - likely related to phos binder compliance difficulties. Will add phos binder, d/w nephrology FEN - Renal ADA PPX - Heparin TID FULL CODE Dispo - inpatient likely for at least 2 midnights History of Present Illness History of Present Illness Mr Easton is a 53yo M w/ PMHx hypertension, diabetes, and end-stage renal disease previously on hemodialysis who transitioned to peritoneal dialysis mid 2018. Presented to [facility] via EMS with hyperglycemia and altered mental status. The patient's relatives who lives out of state was talking to him on the phone and thought that he sounded unusual. EMS found the patient on the couch and the patient admits to sitting there for 3 days. He had urine and feces on him. His initial blood sugar was well over 400. He was alert to himself only at first. He was becoming more alert during transport. Patient denies any falls. He denies drinking alcohol though his family is concerned he has been drinking. ETOH level not detectable. The patient is a long-standing diabetic. He is on dialysis. He says that he used peritoneal dialysis last night. He does not have any additional specific complaints. He denies any falls or trauma. CXR clear BUN 65, Cr 9.5, Albumin 1.2, WBC 13, Hb 9.4, his anion gap is 22. His blood sugar was 484. Lactate 4. Alkaline phosphatase 583. Called for admission for further treatment of his confusion and labs abnormalities. No nephrology services at [facility] so transferred to [facility]. 10/09: Gap closed, eating. Still confused. His brother from [place], [place] has called and noted that he has called adult protective services on Mr Easton's . Patient does not want to discuss this with me. He is amenable to rehab referral and outpatient referral to urology as well. 10/10: WBC still up. Denies CP. Mild SOB. Penile pain and bilateral hand pain as well as abdominal pain. He is still confused today. Seen bedside with his brother. States he ate breakfast. No abdominal pain or penile pain today. Still with some cough and SOB, near his baseline. Very weak. Ammonia negative. Vitals Vitals Vital Signs Date Time Temp Pulse Resp B/P (MAP) Pulse Ox O2 Delivery O2 Flow Rate FiO2 10/11/19 03:49 97.6 94 16 95/39 (57) 95 Nasal Cannula 2.0 97.6 Physical Exam Physical Exam GENERAL: alert awake male in nad but slow to respond HEENT: Normocephalic, atraumatic, anicteric. No thrush. NECK: No tenderness. Supple, no JVD, LUNGS: Clear. HEART: S1, S2. ABDOMEN: Soft. PD catheter in place, nontender, nondistended. GENITOURINARY: Penile swelling, min redness with eschar like lesion,, No purulence noted - but some drainage today EXTREMITIES: no pedal edema SKIN: Dry skin. No cyanosis.superficial skin erythema on back pressure changes NEUROLOGIC: nonfocal grossly, has gen weakness PSYCHIATRIC axox3 male in nad General: Alert, Cooperative, No acute distress Lungs: Clear, Other Abdomen: Normal bowel sounds, Soft, No tenderness, No hepatosplenomegaly, No masses, Other (PD catheter) Extremities: No clubbing, No cyanosis, Normal pulses, No tenderness/swelling Skin: Other (Penile ulcer, unable to assess glans, appears to have phimosis) Labs LABS Laboratory Tests Test 10/10/19 10:19 10/10/19 11:54 10/10/19 16:50 10/10/19 21:08 Glucose (Fingerstick) 112 mg/dL (70-99) 109 mg/dL (70-99) 121 mg/dL (70-99) 224 mg/dL (70-99) Test 10/11/19 07:06 Glucose (Fingerstick) 260 mg/dL (70-99) Comment Review of Relevant I have reviewed the following items alex (where applicable) has been applied. Labs Laboratory Tests Test 10/09/19 11:34 10/09/19 16:40 10/09/19 21:35 10/10/19 03:25 Glucose (Fingerstick) 359 mg/dL (70-99) 303 mg/dL (70-99) 191 mg/dL (70-99) White Blood Count 14.8 x10^3/uL (4.0-11.0) Red Blood Count 2.87 x10^6/uL (4.30-5.70) Hemoglobin 8.5 g/dL (13.0-17.5) Hematocrit 27.3 % (39.0-53.0) Mean Corpuscular Volume 95 fL (79-100) Mean Corpuscular Hemoglobin 30 pg (25-35) Mean Corpuscular Hemoglobin Concent 31 g/dL (31-37) Red Cell Distribution Width 18.3 % (11.5-14.5) Platelet Count 296 x10^3/uL (140-400) Neutrophils (%) (Auto) 86 % (31-73) Lymphocytes (%) (Auto) 6 % (24-48) Monocytes (%) (Auto) 8 % (0-9) Eosinophils (%) (Auto) 0 % (0-3) Basophils (%) (Auto) 0 % (0-3) Neutrophils # (Auto) 12.7 x10^3/uL (1.8-7.7) Lymphocytes # (Auto) 0.9 x10^3/uL (1.0-4.8) Monocytes # (Auto) 1.1 x10^3/uL (0.0-1.1) Eosinophils # (Auto) 0.0 x10^3/uL (0.0-0.7) Basophils # (Auto) 0.0 x10^3/uL (0.0-0.2) Sodium Level 139 mmol/L (136-145) Potassium Level 4.1 mmol/L (3.5-5.1) Chloride Level 97 mmol/L (98-107) Carbon Dioxide Level 26 mmol/L (21-32) Anion Gap 16 (6-14) Blood Urea Nitrogen 64 mg/dL (8-26) Creatinine 9.2 mg/dL (0.7-1.3) Estimated GFR (Cockcroft-Gault) 6.0 Glucose Level 220 mg/dL (70-99) Calcium Level 8.9 mg/dL (8.5-10.1) Phosphorus Level 9.4 mg/dL (2.6-4.7) Albumin 1.0 g/dL (3.4-5.0) Test 10/10/19 10:19 10/10/19 11:54 10/10/19 16:50 10/10/19 21:08 Glucose (Fingerstick) 112 mg/dL (70-99) 109 mg/dL (70-99) 121 mg/dL (70-99) 224 mg/dL (70-99) Test 10/11/19 07:06 Glucose (Fingerstick) 260 mg/dL (70-99) Laboratory Tests Test 10/10/19 10:19 10/10/19 11:54 10/10/19 16:50 10/10/19 21:08 Glucose (Fingerstick) 112 mg/dL (70-99) 109 mg/dL (70-99) 121 mg/dL (70-99) 224 mg/dL (70-99) Test 10/11/19 07:06 Glucose (Fingerstick) 260 mg/dL (70-99) Microbiology 10/08/19 Blood Culture - Preliminary, Resulted NO GROWTH AFTER 2 DAYS 10/08/19 Aerobic Culture, Resulted Pending 10/08/19 Aerobic Culture Result 1 (HEATHER), Resulted Pending 10/08/19 Gram Stain - Final, Resulted 10/08/19 Gram Stain Result 1 (HEATHER) - Final, Resulted 10/08/19 Gram Stain Result 2 (HEATHER) - Final, Resulted Medications Current Medications Ondansetron HCl (Zofran) 4 mg PRN Q4HRS PRN IV NAUSEA/VOMITING; Start 10/08/19 at 16:30 Acetaminophen (Tylenol) 650 mg PRN Q4HRS PRN PO TEMP OVER 100.4F OR MILD PAIN; Start 10/08/19 at 16:30 Docusate Sodium (Colace) 100 mg PRN BID PRN PO CONSTIPATION; Start 10/08/19 at 16:30 Insulin Human Lispro (HumaLOG) 0-7 UNITS TIDACHC SQ Last administered on 10/10/19at 21:40; Start 10/08/19 at 21:00 Dextrose (Dextrose 50%-Water Syringe) 12.5 gm PRN Q15MIN PRN IV SEE COMMENTS Last administered on 10/08/19at 21:05; Start 10/08/19 at 17:00 Dextrose (Iv Dextrose 5%) 250 ml PRN Q15MIN PRN IV SEE COMMENTS; Start 10/08/19 at 17:00 Aspirin (Ecotrin) 81 mg DAILYWBKFT PO Last administered on 10/10/19at 10:10; Start 10/09/19 at 08:00 Atorvastatin Calcium (Lipitor) 40 mg HS PO Last administered on 10/09/19at 21:30; Start 10/08/19 at 21:00 Furosemide (Lasix) 80 mg BID94 PO Last administered on 10/10/19at 16:15; Start 10/08/19 at 18:00 Lactobacillus Rhamnosus (Culturelle) 1 cap BID PO Last administered on 10/10/19at 10:09; Start 10/08/19 at 21:00 Montelukast Sodium (Singulair) 10 mg HS PRN PO ALLERGIES; Start 10/08/19 at 17:00 Ondansetron HCl (Zofran Odt) 4 mg PRN Q6HRS PRN PO NAUSEA; Start 10/08/19 at 17:00 Tamsulosin HCl (Flomax) 0.4 mg HS PO Last administered on 10/09/19at 21:30; Start 10/08/19 at 21:00 Tramadol HCl (Ultram) 50 mg PRN Q6HRS PRN PO MODERATE PAIN; Start 10/08/19 at 17:00 Insulin Glargine (Lantus Syringe) 10 unit QHS SQ Last administered on 10/10/19at 21:40; Start 10/08/19 at 21:00 Losartan Potassium (Cozaar) 100 mg HS PO Last administered on 10/09/19at 21:30; Start 10/08/19 at 21:00 Pantoprazole Sodium (Protonix) 40 mg DAILYAC PO Last administered on 10/10/19at 10:10; Start 10/09/19 at 07:30 Sodium Chloride 500 ml @ 500 mls/hr 1X ONCE IV Last administered on 10/08/19at 20:00; Start 10/08/19 at 20:00; Stop 10/08/19 at 20:59; Status DC Calcium Acetate (Phoslo) 1,334 mg TIDWMEALS PO Last administered on 10/10/19at 17:35; Start 10/08/19 at 20:00 Vitamin A/Vitamin D (Vitamin A & D Ointment) 1 lucero PRN Q1HR PRN TP SKIN PROTECTION; Start 10/09/19 at 09:00 Doxycycline Hyclate (Vibra-Tab) 100 mg BID PO Last administered on 10/10/19at 10:08; Start 10/09/19 at 11:00; Stop 10/10/19 at 10:21; Status DC Fluconazole (Diflucan) 100 mg DAILY PO Last administered on 10/10/19at 10:08; Start 10/09/19 at 10:30 Amoxicillin/ Clavulanate Potassium (Augmentin 500/ 125mg) 1 tab DAILY PO Last administered on 10/10/19at 10:08; Start 10/09/19 at 10:30; Stop 10/10/19 at 10:21; Status DC Vancomycin HCl (Vanco Per Pharmacy) 1 each PRN DAILY PRN MC SEE COMMENTS Last administered on 10/10/19at 10:42; Start 10/10/19 at 10:30 Piperacillin Sod/ Tazobactam Sod 2.25 gm/Sodium Chloride 50 ml @ 100 mls/hr Q 8HRS IV Last administered on 10/11/19at 07:02; Start 10/10/19 at 11:00 Vancomycin HCl 1.5 gm/Sodium Chloride 500 ml @ 250 mls/hr 1X ONCE IV Last administered on 10/10/19at 16:14; Start 10/10/19 at 11:00; Stop 10/10/19 at 12:59; Status DC Vancomycin HCl (Vancomycin Random Level) 1 each 1X ONCE MC ; Start 10/12/19 at 05:00; Stop 10/12/19 at 05:01 Active Scripts Active Tramadol Hcl 50 Mg Tablet 50 Mg PO PRN Q6HRS PRN 3 Days Culturelle (Lactobacillus Rhamnosus Gg) 1 Each Cap.sprink 1 Cap PO BID 7 Days [Fluconazole] 100 MG Tablet 100 Mg PO DAILY 7 Days Doxycycline Hyclate 100 Mg Tablet 100 Mg PO BID 7 Days Amox Tr-K Clv 500-125 Mg Tab (Amoxicillin/Potassium Clav) 1 Each Tablet 1 Tab PO DAILY 7 Days Aspirin Ec (Aspirin) 81 Mg Tablet.dr 81 Mg PO DAILYWBKFT Reported Glyburide 5 Mg Tablet 5 Mg PO DAILY Lantus Solostar (Insulin Glargine,Hum.rec.anlog) 100 Unit/1 Ml Insuln.pen 10 Unit SQ QHS Humalog (Insulin Lispro) 100 Unit/1 Ml Cartridge 100 Unit SQ TIDWMEALS Omeprazole 20 Mg Tablet.dr 20 Mg PO DAILY Calcitriol 0.5 Mcg Capsule 0.5 Mcg PO DAILY Furosemide 80 Mg Tablet 80 Mg PO BID Glucagen (Glucagon,Human Recombinant) 1 Mg Vial 1 PRN PRN Tamsulosin Hcl 0.4 Mg Cap.er.24h 1 Cap PO HS Montelukast Sodium Tablet (Montelukast Sodium) 10 Mg Tablet 1 Tab PO HS PRN Ondansetron Odt (Ondansetron) 4 Mg Tab.rapdis 1 Tab PO PRN Q6-8HRS PRN Lantus Solostar (Insulin Glargine,Hum.rec.anlog) 100 Unit/1 Ml Insuln.pen 11 Unit SQ QHS Humalog (Insulin Lispro) 100 Unit/1 Ml Cartridge 22 Unit SQ TIDWMEALS Cozaar (Losartan Potassium) 100 Mg Tablet 100 Mg PO HS Carvedilol 25 Mg Tablet 25 Mg PO BIDWMEALS Atorvastatin Calcium 40 Mg Tablet 40 Mg PO HS Amlodipine Besylate 10 Mg Tablet 10 Mg PO DAILY Vitals/I & O Vital Sign - Last 24 Hours 10/10/19 10/10/19 10/10/19 10/10/19 08:00 11:00 15:20 19:00 Temp 98.7 99.7 97.5 98.7 99.7 97.5 Pulse 111 95 65 Resp 16 16 16 B/P (MAP) 110/56 (74) 99/67 (78) 115/62 (79) Pulse Ox 93 93 92 O2 Delivery Nasal Cannula Nasal Cannula Nasal Cannula Nasal Cannula O2 Flow Rate 2.0 2.0 2.0 2.0 10/10/19 10/10/19 10/10/19 10/11/19 20:25 21:00 23:23 03:49 Temp 97.4 97.6 97.4 97.6 Pulse 103 82 94 Resp 16 16 B/P (MAP) 113/67 101/32 (55) 95/39 (57) Pulse Ox 94 95 O2 Delivery Nasal Cannula Nasal Cannula Nasal Cannula O2 Flow Rate 2.0 2.0 2.0 Intake and Output 10/10/19 10/10/19 10/11/19 15:00 23:00 07:00 Intake Total 300 ml 0 ml Balance 300 ml 0 ml Nutrition Consultation Dietary Evaluation: Recommendations by RD: Dietary education by RD, Increase Calorie Intake, Protein supplementation Comments: Nepro bid REC mvi and vit c per wound protocal due to multiple skin breakdown areas - See wound assessment Expected Outcomes/Goals: to meet >50% est nutr needs Interpretation of weight loss: >5% in 1 month Malnutrition Findings: Food and Nutrition Intake (Sev: <50% est energy req 5days Body Fat Depletion (Non Severe: Mild Depletion Weight Status: Underweight JOSE SOLANO MD Oct 11, 2019 07:51
[2019-10-11] MEDS: ASPIRIN ENTERIC COATED 81 MG TABLET.DR. PO SCH (08:00)
[2019-10-11] MEDS: CALCIUM ACETATE 667 MG CAPSULE PO SCH ×3 (08:00→16:51)
[2019-10-11] MEDS: FLUCONAZOLE 100 MG TABLET. PO SCH (08:12)
[2019-10-11] MEDS: LACTOBACILLUS RHAMNOSUS GG 1 CAPSULE. PO SCH ×2 (08:12→21:00)
[2019-10-11] MEDS: FUROSEMIDE 80 MG TABLET. PO SCH ×2 (08:12→16:00)
[2019-10-11] MEDS: INSULIN LISPRO 300 UNITS/3 ML VIAL. SQ SCH ×4 (08:49→21:00)
[2019-10-11 09:00] LABS: BASO # 0.1 x10^3/uL (0.0-0.2); BASO % 1 % (0-3); EOS % 0 % (0-3); HEMATOCRIT 28.9 % (39.0-53.0); HEMOGLOBIN 8.8 g/dL (13.0-17.5); LYMPH # 0.8 x10^3/uL (1.0-4.8); LYMPH % 6 % (24-48); MEAN CORPUSCULAR HEMOGLOBIN 29 pg (25-35); MEAN CORPUSCULAR HGB CONC 30 g/dL (31-37); MEAN CORPUSCULAR VOLUME 96 fL (79-100); MONO % 7 % (0-9); NEUT % 87 % (31-73); PLATELET COUNT 241 x10^3/uL (140-400); RED BLOOD COUNT 3.02 x10^6/uL (4.30-5.70); RED CELL DISTRIBUTION WIDTH 18.4 % (11.5-14.5); WHITE BLOOD COUNT 14.9 x10^3/uL (4.0-11.0)
[2019-10-11 09:28] LABS: % LYMPHS 6 % (24-48); % MONOS 2 % (0-10); % SEGS 92 % (35-66)
[2019-10-11 09:29] LABS: ANISOCYTOSIS SLIGHT; PLT ESTIMATE ADEQUATE (ADEQUATE)
--- NOTE | 2019-10-11 09:35 | PDOC ---
Infectious Disease Note Subjective Subjective Pt well known to us from recent admissions Just dc Oct 03 with Augment/doxy/Fluconazole - he cannot tell me if he was taking these at home 53 yo male brought in again for mental status change and weakness to [facility] [facility] via EMS with hyperglycemia and altered mental status. The patient's relatives who lives out of state was talking to him on the phone and thought that he sounded unusual. EMS found the patient on the couch and the patient admits to sitting there for 3 days. He had urine and feces on him. His initial blood sugar was well over 400. BUN 65, Cr 9.5, Albumin 1.2, WBC 13, Hb 9.4, his anion gap is 22. His blood sugar was 484. Lactate 4. Alkaline phosphatase 583. He has end-stage renal disease on PD Over the past few weeks this is recurrent 4th admission and he seems to be failing to thrive He was supposed to f/u with [facility] again for balanitis with wounds over the glans but did not Arousable but back to sleep. No Pain/F/C/S/N/V/D Vital Sign Vital Signs Vital Signs Date Time Temp Pulse Resp B/P (MAP) Pulse Ox O2 Delivery O2 Flow Rate FiO2 10/11/19 07:45 Nasal Cannula 2.0 10/11/19 07:00 98.7 104 16 119/34 (62) 99 98.7 Physical Exam PHYSICAL EXAM GENERAL: in bed but slow to respond HEENT: Normocephalic, atraumatic, anicteric. No thrush. NECK: No tenderness. Supple, no JVD, LUNGS: Clear. HEART: S1, S2. ABDOMEN: Soft. PD catheter in place, nontender, nondistended. GENITOURINARY: Penile swelling, min redness with eschar like lesion,, No purulence noted - No drainage today - still painful EXTREMITIES: no pedal edema SKIN: Dry skin. No cyanosis.superficial skin erythema on back pressure changes NEUROLOGIC: slow to respond PSYCHIATRIC flat Labs Lab Laboratory Tests Test 10/10/19 10:19 10/10/19 11:54 10/10/19 16:50 10/10/19 21:08 Glucose (Fingerstick) 112 mg/dL (70-99) 109 mg/dL (70-99) 121 mg/dL (70-99) 224 mg/dL (70-99) Test 10/11/19 07:06 10/11/19 08:50 Glucose (Fingerstick) 260 mg/dL (70-99) White Blood Count 14.9 x10^3/uL (4.0-11.0) Red Blood Count 3.02 x10^6/uL (4.30-5.70) Hemoglobin 8.8 g/dL (13.0-17.5) Hematocrit 28.9 % (39.0-53.0) Mean Corpuscular Volume 96 fL (79-100) Mean Corpuscular Hemoglobin 29 pg (25-35) Mean Corpuscular Hemoglobin Concent 30 g/dL (31-37) Red Cell Distribution Width 18.4 % (11.5-14.5) Platelet Count 241 x10^3/uL (140-400) Neutrophils (%) (Auto) 87 % (31-73) Lymphocytes (%) (Auto) 6 % (24-48) Monocytes (%) (Auto) 7 % (0-9) Eosinophils (%) (Auto) 0 % (0-3) Basophils (%) (Auto) 1 % (0-3) Neutrophils # (Auto) 13.0 x10^3/uL (1.8-7.7) Lymphocytes # (Auto) 0.8 x10^3/uL (1.0-4.8) Monocytes # (Auto) 1.0 x10^3/uL (0.0-1.1) Eosinophils # (Auto) 0.0 x10^3/uL (0.0-0.7) Basophils # (Auto) 0.1 x10^3/uL (0.0-0.2) Segmented Neutrophils % 92 % (35-66) Lymphocytes % 6 % (24-48) Monocytes % 2 % (0-10) Platelet Estimate Adequate (ADEQUATE) Anisocytosis Slight Ammonia < 10 mcmol/L (11-34) Micro Microbiology 10/08/19 Blood Culture - Preliminary, Resulted NO GROWTH AFTER 1 DAY Objective Assessment 1. Leukocytosis - - stable 2. Acute Encephalopathy - persists - Ammonia nml. TSH pending 3. DKA 4. Balanitis chronic 5. Anemia of chronic disease. 6. End-stage renal disease, on peritoneal dialysis. 7. Peripheral vascular disease. Plan Plan of Care D/c Doxy/Augmentin 10/10 Begin Vancomycin/Zosyn 10/10 Cont Fluconazole Need Urology f/u F/u labs and cults - neg so far Local wound care D/w family D/w nursing CORY NUNEZ MD Oct 11, 2019 09:35
[2019-10-11 10:03] LABS: ALBUMIN 0.8 g/dL (3.4-5.0); CALCIUM 8.5 mg/dL (8.5-10.1); CREATININE 8.9 mg/dL (0.7-1.3); DIRECT BILIRUBIN 0.1 mg/dL (0.0-0.2); GFR 6.2; PHOSPHORUS 8.8 mg/dL (2.6-4.7); POTASSIUM 4.4 mmol/L (3.5-5.1); TOTAL BILIRUBIN 0.4 mg/dL (0.2-1.0); TOTAL PROTEIN 4.8 g/dL (6.4-8.2)
--- NOTE | 2019-10-11 10:16 | PDOC ---
SUBJECTIVE ROS stable , per brother more alert, forming more words OBJECTIVE Vital Signs Vital Signs Date Time Temp Pulse Resp B/P (MAP) Pulse Ox O2 Delivery O2 Flow Rate FiO2 10/11/19 07:45 Nasal Cannula 2.0 10/11/19 07:00 98.7 104 16 119/34 (62) 99 98.7 I & 0 Intake and Output 10/11/19 07:00 Intake Total 300 ml Balance 300 ml Intake Oral 300 ml # Voids 3 PHYSICAL EXAM Physical Exam General: No acute distress, HEENT: OM moist Neck Supple Lungs: Clear to auscultation, Normal air movement Heart: S1S2, RRR, no thrills, no rubs, no gallops, no murmurs Cardiovascular: S1, S2 Abdomen: Normal bowel sounds, Soft, No tenderness, PD cath in place, no e/ Exit site infection Extremities: left av fistula Skin: No rashes, No quinteros DIAGNOSIS/ASSESSMENT Assessment & Plan ESRD- Dr Riggs's pt at [facility] per Home Prescription , Negative UF, BP low,resp status stable , continue same prescription, Anemia- VAN for Hgb < 10 Monitor Acute encephalopathy - metabolic 2/2 DKA and toxic 2/2 likely infectious etiolo gy DKA, 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- On phoslo Phos improving HTN- low hold losartan for low BP Severe protein calorie malnutrition albumin 1.1, COMMENT/RELEVANT DATA Meds Current Medications Medications (Trade) Dose Ordered Sig/Rosalino Start Time Stop Time Status Last Admin Dose Admin Acetaminophen (Tylenol) 650 mg PRN Q4HRS PRN 10/08/19 16:30 Amoxicillin/ Clavulanate Potassium (Augmentin 500/ 125mg) 1 tab DAILY 10/09/19 10:30 10/10/19 10:21 DC 10/10/19 10:08 1 TAB Aspirin (Ecotrin) 81 mg DAILYWBKFT 10/09/19 08:00 10/10/19 10:10 81 MG Atorvastatin Calcium (Lipitor) 40 mg HS 10/08/19 21:00 10/09/19 21:30 40 MG Calcium Acetate (Phoslo) 1,334 mg TIDWMEALS 10/08/19 20:00 10/10/19 17:35 1,334 MG Dextrose (Dextrose 50%-Water Syringe) 12.5 gm PRN Q15MIN PRN 1/20/20 17:00 10/08/19 21:05 25 GM Dextrose (Iv Dextrose 5%) 250 ml PRN Q15MIN PRN 10/08/19 17:00 Docusate Sodium (Colace) 100 mg PRN BID PRN 10/08/19 16:30 Doxycycline Hyclate (Vibra-Tab) 100 mg BID 10/09/19 11:00 10/10/19 10:21 DC 10/10/19 10:08 100 MG Fluconazole (Diflucan) 100 mg DAILY 10/09/19 10:30 10/10/19 10:08 100 MG Furosemide (Lasix) 80 mg BID94 10/08/19 18:00 10/10/19 16:15 80 MG Insulin Glargine (Lantus Syringe) 10 unit QHS 10/08/19 21:00 10/10/19 21:40 10 UNIT Insulin Human Lispro (HumaLOG) 0-7 UNITS TIDACHC 10/08/19 21:00 10/11/19 08:49 3 UNITS Lactobacillus Rhamnosus (Culturelle) 1 cap BID 10/08/19 21:00 10/10/19 10:09 1 CAP Losartan Potassium (Cozaar) 100 mg HS 10/08/19 21:00 10/09/19 21:30 100 MG Montelukast Sodium (Singulair) 10 mg HS PRN 10/08/19 17:00 Ondansetron HCl (Zofran Odt) 4 mg PRN Q6HRS PRN 10/08/19 17:00 Ondansetron HCl (Zofran) 4 mg PRN Q4HRS PRN 10/08/19 16:30 Pantoprazole Sodium (Protonix) 40 mg DAILYAC 10/09/19 07:30 10/10/19 10:10 40 MG Piperacillin Sod/ Tazobactam Sod 2.25 gm/Sodium Chloride 50 ml @ 100 mls/hr Q8HRS 10/10/19 11:00 10/11/19 07:02 100 MLS/HR Sodium Chloride 500 ml @ 500 mls/hr 1X ONCE 10/08/19 20:00 10/08/19 20:59 DC 10/08/19 20:00 500 MLS/HR Tamsulosin HCl (Flomax) 0.4 mg HS 10/08/19 21:00 10/09/19 21:30 0.4 MG Tramadol HCl (Ultram) 50 mg PRN Q6HRS PRN 10/08/19 17:00 Vancomycin HCl (Vanco Per Pharmacy) 1 each PRN DAILY PRN 10/10/19 10:30 10/10/19 10:42 1 EACH Vancomycin HCl (Vancomycin Random Level) 1 each 1X ONCE 10/12/19 05:00 10/12/19 05:01 Vancomycin HCl 1.5 gm/Sodium Chloride 500 ml @ 250 mls/hr 1X ONCE 10/10/19 11:00 10/10/19 12:59 DC 10/10/19 16:14 250 MLS/HR Vitamin A/Vitamin D (Vitamin A & D Ointment) 1 lucero PRN Q1HR PRN 10/09/19 09:00 Lab Laboratory Tests Test 10/10/19 10:19 10/10/19 11:54 10/10/19 16:50 10/10/19 21:08 Glucose (Fingerstick) 112 mg/dL (70-99) 109 mg/dL (70-99) 121 mg/dL (70-99) 224 mg/dL (70-99) Test 10/11/19 07:06 10/11/19 08:50 Glucose (Fingerstick) 260 mg/dL (70-99) White Blood Count 14.9 x10^3/uL (4.0-11.0) Red Blood Count 3.02 x10^6/uL (4.30-5.70) Hemoglobin 8.8 g/dL (13.0-17.5) Hematocrit 28.9 % (39.0-53.0) Mean Corpuscular Volume 96 fL (79-100) Mean Corpuscular Hemoglobin 29 pg (25-35) Mean Corpuscular Hemoglobin Concent 30 g/dL (31-37) Red Cell Distribution Width 18.4 % (11.5-14.5) Platelet Count 241 x10^3/uL (140-400) Neutrophils (%) (Auto) 87 % (31-73) Lymphocytes (%) (Auto) 6 % (24-48) Monocytes (%) (Auto) 7 % (0-9) Eosinophils (%) (Auto) 0 % (0-3) Basophils (%) (Auto) 1 % (0-3) Neutrophils # (Auto) 13.0 x10^3/uL (1.8-7.7) Lymphocytes # (Auto) 0.8 x10^3/uL (1.0-4.8) Monocytes # (Auto) 1.0 x10^3/uL (0.0-1.1) Eosinophils # (Auto) 0.0 x10^3/uL (0.0-0.7) Basophils # (Auto) 0.1 x10^3/uL (0.0-0.2) Segmented Neutrophils % 92 % (35-66) Lymphocytes % 6 % (24-48) Monocytes % 2 % (0-10) Platelet Estimate Adequate (ADEQUATE) Anisocytosis Slight Sodium Level 138 mmol/L (136-145) Potassium Level 4.4 mmol/L (3.5-5.1) Chloride Level 100 mmol/L (98-107) Carbon Dioxide Level 26 mmol/L (21-32) Anion Gap 12 (6-14) Blood Urea Nitrogen 63 mg/dL (8-26) Creatinine 8.9 mg/dL (0.7-1.3) Estimated GFR (Cockcroft-Gault) 6.2 Glucose Level 273 mg/dL (70-99) Calcium Level 8.5 mg/dL (8.5-10.1) Phosphorus Level 8.8 mg/dL (2.6-4.7) Total Bilirubin 0.4 mg/dL (0.2-1.0) Direct Bilirubin 0.1 mg/dL (0.0-0.2) Aspartate Amino Transf (AST/SGOT) 40 U/L (15-37) Alanine Aminotransferase (ALT/SGPT) 8 U/L (16-63) Alkaline Phosphatase 388 U/L (46-116) Ammonia < 10 mcmol/L (11-34) Total Protein 4.8 g/dL (6.4-8.2) Albumin 0.8 g/dL (3.4-5.0) Results All relevant outside records, renal labs, imaging studies, telemetry/EKG's were reviewed. IVAN APARICIO MD Oct 11, 2019 10:16
[2019-10-11 11:00] VITALS: BP 115/87
--- NOTE | 2019-10-11 11:22 | NUR ---
Bedside Swallow Evaluation completed. Please refer to full report for additional information. Impressions: Moderate oropharyngeal dysphagia w/ oropharyngeal swallow delay, decreased hyopharyngeal excursion and overt s/s aspiration w/ limited PO trials. High risk of aspiration for all PO w/ no safe consistency identified. Pt's cognitive status, slow responding and weakness likely contributors to some extent. Duration of need for NPO currently unknown. Recommendations: NPO; oral care; COURT STENOGRAPHER f/u for dysphagia.
--- NOTE | 2019-10-11 12:12 | RAD ---
Examination: CT HEAD WO CONTRAST History: Worst headache of life Comparison/Correlation: 10/01/2019 CT head without contrast Findings: Axial images of the head were obtained without contrast. Atrophy is present. Chronic degenerative changes of white matter is noted. No intracranial hemorrhage, shift, or mass effect. Globes and optic nerves are unremarkable. Plate involving the left infraorbital anterior maxillary wall noted. Fluid level within the left maxillary sinus noted. Partial preservation of the right maxillary sinus noted. Defects involving ethmoid air cells and maxillary sinus wall medially bilaterally presumably represent previous surgical intervention. Impression: Acute and chronic paranasal sinusitis noted since 10/01/2019 CT head without contrast. No suspicious intracranial process. PQRS Compliance Statement: One or more of the following individualized dose reduction techniques were utilized for this examination: 1. Automated exposure control 2. Adjustment of the mA and/or kV according to patient size 3. Use of iterative reconstruction technique Electronically signed by: Sabino Carcamo MD (10/11/2019 12:09 PM) [facility]
--- NOTE | 2019-10-11 13:01 | NUR ---
Pt. straight cathed x 1 with 12fr catheter. 300cc clear, dark yellow urine obtained. Sample sent to lab.
[2019-10-11 13:08] LABS: BILIRUBIN,URINE NEGATIVE (NEG); CLARITY,URINE CLEAR; COLOR,URINE YELLOW; NITRITE,URINE NEGATIVE (NEG); PH,URINE 7.5; PROTEIN,URINE 100 mg/dL (NEG-TRACE); UROBILINOGEN,URINE 0.2 mg/dL (0.2 mg/dL)
[2019-10-11 13:12] LABS: BACTERIA,URINE 0 /HPF (0-FEW)
[2019-10-11 13:13] LABS: AMORPHOUS SEDIMENT,UR PRESENT /HPF; RBC,URINE 0 /HPF (0-2)
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
[2019-10-11 15:00] VITALS: BP 105/42
--- NOTE | 2019-10-11 15:00 | NUR ---
Pt. down to MRI via bed per transportation.
[2019-10-11] MEDS: VANCOMYCIN PER PHARMACY MC PRN (15:08)
--- NOTE | 2019-10-11 15:34 | NUR ---
SS following up with discharge planning. SS phoned and faxed clinical updates to [facility], ; fax [phone]. SS awaiting acceptance decision at this time and will proceed accordingly.
--- NOTE | 2019-10-11 16:20 | RAD ---
MRI of the brain without contrast 10/11/2019 Clinical History: Altered mental status. Technique: Unenhanced T1-weighted sagittal and axial, T2-weighted axial and coronal and FLAIR, gradient echo and diffusion-weighted axial images of the brain were obtained. Findings: Comparison is made to the patient's CT scan of the head dated 10/01/2019. Images from the study are degraded by patient motion. There is generalized parenchymal atrophy. Patchy, confluent and multiple focal areas of increased signal intensity are seen within the periventricular and subcortical white matter of both cerebral hemispheres on the FLAIR and T2-weighted images consistent with areas of extensive small vessel ischemic disease. An area of encephalomalacia is seen involving the anterior inferior left frontal lobe. No acute parenchymal abnormality is seen. No extra-axial fluid collection is seen. There is no MRI evidence of acute ischemia/infarction. Mild to moderate mucosal thickening is throughout the paranasal sinuses. Small fluid levels are seen involving both maxillary sinuses, left greater than right. There are moderate to large sized mastoid effusions bilaterally. Normal flow voids are seen within the major vascular structures surrounding the brain parenchyma. Impression: No acute parenchymal abnormality is seen. Electronically signed by: Anthony Lazcano MD (10/11/2019 4:17 PM) [id number]
[2019-10-11 19:00] VITALS: BP 100/39
[2019-10-11] MEDS: ATORVASTATIN CALCIUM 40 MG TABLET. PO SCH (21:00)
[2019-10-11] MEDS: TAMSULOSIN 0.4 MG CAP.ER.24H. PO SCH (21:00)
[2019-10-11] MEDS: LOSARTAN POTASSIUM 50 MG TABLET. PO SCH (21:00)
[2019-10-11] MEDS: INSULIN GLARGINE SYRINGE. SQ SCH (22:13)
[2019-10-11 23:00] VITALS: BP 100/41
[2019-10-12 03:00] VITALS: BP 111/45
[2019-10-12] MEDS ORDERED: VANCOMYCIN RANDOM LEVEL. MC ONE (05:00)
[2019-10-12] MEDS ORDERED: ACETAMINOPHEN 650 MG SUPP.RECT. PR PRN (06:00)
[2019-10-12] MEDS: PIPERACILLIN/TAZOBACTAM 2.25 GM in IV NORMAL SALINE 50ML 50 ML IV SCH (06:00)
[2019-10-12 07:00] VITALS: BP 137/38
[2019-10-12] MEDS: PANTOPRAZOLE 40 MG TABLET.DR. PO SCH (07:30)
[2019-10-12] MEDS: ASPIRIN ENTERIC COATED 81 MG TABLET.DR. PO SCH (08:00)
[2019-10-12] MEDS: CALCIUM ACETATE 667 MG CAPSULE PO SCH ×3 (08:00→16:36)
--- NOTE | 2019-10-12 08:40 | PDOC ---
PROGRESS NOTES Chief Complaint Chief Complaint A/P: Acute encephalopathy - metabolic 2/2 DKA and toxic 2/2 likely infectious etiology. Still somewhat confused DKA, type 2 - off insulin GTT. will repeat BMP, able to eat, lantus tonight. Elevated alkaline phosphatase level - will monitor, no biliary problems previously Lactic acidosis - likely due to diabetes mellitus. Will trend Penile cellulitis - present on admission, likely from failure to f/u outpatient - Doxy and augmentin with fluconazole previously. Will culture and consult ID ESRD on HD transitioning to PD prior to his admission - tolerating well. Will consult nephrology Sepsis - from penile cellulitis as etiology, f/u cultures. Previously with coag negative staph on PD culture. F/u repeat culture HTN - cont meds DM type 2 insulin requiring - now hyperglycemic, previously with hypoglycemic event - hypoglycemia protocol. Cont insulin basal bolus plus once out of DKA Severe protein calorie malnutrition - unclear etiology, albumin 1.2, definitely has inconsistent PO intake. 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 U/S shows no abscess - painless ulcer concerning. Syphilis testing negative previously. Wound care to see Gait instability - needs further PT Anemia - of chronic renal disease Hyperphosphatemia - likely related to phos binder compliance difficulties. Will add phos binder, d/w nephrology FEN - Renal ADA PPX - Heparin TID FULL CODE Dispo - inpatient likely for at least 2 midnights History of Present Illness History of Present Illness Mr Easton is a 53yo M w/ PMHx hypertension, diabetes, and end-stage renal disease previously on hemodialysis who transitioned to peritoneal dialysis mid 2018. Presented to [facility] via EMS with hyperglycemia and altered mental status. The patient's relatives who lives out of state was talking to him on the phone and thought that he sounded unusual. EMS found the patient on the couch and the patient admits to sitting there for 3 days. He had urine and feces on him. His initial blood sugar was well over 400. He was alert to himself only at first. He was becoming more alert during transport. Patient denies any falls. He denies drinking alcohol though his family is concerned he has been drinking. ETOH level not detectable. The patient is a long-standing diabetic. He is on dialysis. He says that he used peritoneal dialysis last night. He does not have any additional specific complaints. He denies any falls or trauma. CXR clear BUN 65, Cr 9.5, Albumin 1.2, WBC 13, Hb 9.4, his anion gap is 22. His blood sugar was 484. Lactate 4. Alkaline phosphatase 583. Called for admission for further treatment of his confusion and labs abnormalities. No nephrology services at [facility] so transferred to [facility]. 10/09: Gap closed, eating. Still confused. His brother from [place], [place] has called and noted that he has called adult protective services on Mr Easton's . Patient does not want to discuss this with me. He is amenable to rehab referral and outpatient referral to urology as well. 10/10: WBC still up. Denies CP. Mild SOB. Penile pain and bilateral hand pain as well as abdominal pain. He is still confused today. 10/11: Seen bedside with his brother. States he ate breakfast. No abdominal pain or penile pain today. Still with some cough and SOB, near his baseline. Very weak. Ammonia negative. 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 D/w Robin, his DPOA to consult GI for PEG consideration Fever 102F this morning. Still mentally very slow. CT head negative. D/w family may need feeding tube and convert to HD. He is asking for a diet pepsi. Vitals Vitals Vital Signs Date Time Temp Pulse Resp B/P (MAP) Pulse Ox O2 Delivery O2 Flow Rate FiO2 10/12/19 03:00 102.0 111 19 111/45 (67) 90 Nasal Cannula 2.0 102.0 Physical Exam Physical Exam GENERAL: in bed but slow to respond HEENT: Normocephalic, atraumatic, anicteric. No thrush. NECK: No tenderness. Supple, no JVD, LUNGS: Clear. HEART: S1, S2. ABDOMEN: Soft. PD catheter in place, nontender, nondistended. GENITOURINARY: Penile swelling, min redness with eschar like lesion,, No purulence noted - No drainage today - still painful EXTREMITIES: no pedal edema SKIN: Dry skin. No cyanosis.superficial skin erythema on back pressure changes NEUROLOGIC: slow to respond PSYCHIATRIC flat General: Alert, Cooperative, No acute distress Lungs: Clear, Other Abdomen: Normal bowel sounds, Soft, No tenderness, No hepatosplenomegaly, No masses, Other (PD catheter) Extremities: No clubbing, No cyanosis, Normal pulses, No tenderness/swelling Skin: Other (Penile ulcer, unable to assess glans, appears to have phimosis) Labs LABS Laboratory Tests Test 10/11/19 08:50 10/11/19 10:47 10/11/19 13:00 10/11/19 16:17 White Blood Count 14.9 x10^3/uL (4.0-11.0) Red Blood Count 3.02 x10^6/uL (4.30-5.70) Hemoglobin 8.8 g/dL (13.0-17.5) Hematocrit 28.9 % (39.0-53.0) Mean Corpuscular Volume 96 fL (79-100) Mean Corpuscular Hemoglobin 29 pg (25-35) Mean Corpuscular Hemoglobin Concent 30 g/dL (31-37) Red Cell Distribution Width 18.4 % (11.5-14.5) Platelet Count 241 x10^3/uL (140-400) Neutrophils (%) (Auto) 87 % (31-73) Lymphocytes (%) (Auto) 6 % (24-48) Monocytes (%) (Auto) 7 % (0-9) Eosinophils (%) (Auto) 0 % (0-3) Basophils (%) (Auto) 1 % (0-3) Neutrophils # (Auto) 13.0 x10^3/uL (1.8-7.7) Lymphocytes # (Auto) 0.8 x10^3/uL (1.0-4.8) Monocytes # (Auto) 1.0 x10^3/uL (0.0-1.1) Eosinophils # (Auto) 0.0 x10^3/uL (0.0-0.7) Basophils # (Auto) 0.1 x10^3/uL (0.0-0.2) Segmented Neutrophils % 92 % (35-66) Lymphocytes % 6 % (24-48) Monocytes % 2 % (0-10) Platelet Estimate Adequate (ADEQUATE) Anisocytosis Slight Sodium Level 138 mmol/L (136-145) Potassium Level 4.4 mmol/L (3.5-5.1) Chloride Level 100 mmol/L (98-107) Carbon Dioxide Level 26 mmol/L (21-32) Anion Gap 12 (6-14) Blood Urea Nitrogen 63 mg/dL (8-26) Creatinine 8.9 mg/dL (0.7-1.3) Estimated GFR (Cockcroft-Gault) 6.2 Glucose Level 273 mg/dL (70-99) Calcium Level 8.5 mg/dL (8.5-10.1) Phosphorus Level 8.8 mg/dL (2.6-4.7) Total Bilirubin 0.4 mg/dL (0.2-1.0) Direct Bilirubin 0.1 mg/dL (0.0-0.2) Aspartate Amino Transf (AST/SGOT) 40 U/L (15-37) Alanine Aminotransferase (ALT/SGPT) 8 U/L (16-63) Alkaline Phosphatase 388 U/L (46-116) Ammonia < 10 mcmol/L (11-34) Total Protein 4.8 g/dL (6.4-8.2) Albumin 0.8 g/dL (3.4-5.0) Thyroid Stimulating Hormone (TSH) 5.054 uIU/mL (0.358-3.74) Glucose (Fingerstick) 187 mg/dL (70-99) 147 mg/dL (70-99) Urine Collection Type U cath Urine Color Yellow Urine Clarity Clear Urine pH 7.5 Urine Specific [place] 1.015 Urine Protein 100 mg/dL (NEG-TRACE) Urine Glucose (UA) 500 mg/dL (NEG) Urine Ketones (Stick) Negative mg/dL (NEG) Urine Blood Negative (NEG) Urine Nitrite Negative (NEG) Urine Bilirubin Negative (NEG) Urine Urobilinogen Dipstick 0.2 mg/dL (0.2 mg/dL) Urine Leukocyte Esterase Negative (NEG) Urine RBC 0 /HPF (0-2) Urine WBC 1-4 /HPF (0-4) Urine Amorphous Sediment Present /HPF Urine Bacteria 0 /HPF (0-FEW) Test 10/11/19 21:08 10/12/19 05:40 10/12/19 07:22 Glucose (Fingerstick) 234 mg/dL (70-99) 288 mg/dL (70-99) 302 mg/dL (70-99) Comment Review of Relevant I have reviewed the following items alex (where applicable) has been applied. Labs Laboratory Tests Test 10/10/19 10:19 10/10/19 11:54 10/10/19 16:50 10/10/19 21:08 Glucose (Fingerstick) 112 mg/dL (70-99) 109 mg/dL (70-99) 121 mg/dL (70-99) 224 mg/dL (70-99) Test 10/11/19 07:06 10/11/19 08:50 10/11/19 10:47 10/11/19 13:00 Glucose (Fingerstick) 260 mg/dL (70-99) 187 mg/dL (70-99) White Blood Count 14.9 x10^3/uL (4.0-11.0) Red Blood Count 3.02 x10^6/uL (4.30-5.70) Hemoglobin 8.8 g/dL (13.0-17.5) Hematocrit 28.9 % (39.0-53.0) Mean Corpuscular Volume 96 fL (79-100) Mean Corpuscular Hemoglobin 29 pg (25-35) Mean Corpuscular Hemoglobin Concent 30 g/dL (31-37) Red Cell Distribution Width 18.4 % (11.5-14.5) Platelet Count 241 x10^3/uL (140-400) Neutrophils (%) (Auto) 87 % (31-73) Lymphocytes (%) (Auto) 6 % (24-48) Monocytes (%) (Auto) 7 % (0-9) Eosinophils (%) (Auto) 0 % (0-3) Basophils (%) (Auto) 1 % (0-3) Neutrophils # (Auto) 13.0 x10^3/uL (1.8-7.7) Lymphocytes # (Auto) 0.8 x10^3/uL (1.0-4.8) Monocytes # (Auto) 1.0 x10^3/uL (0.0-1.1) Eosinophils # (Auto) 0.0 x10^3/uL (0.0-0.7) Basophils # (Auto) 0.1 x10^3/uL (0.0-0.2) Segmented Neutrophils % 92 % (35-66) Lymphocytes % 6 % (24-48) Monocytes % 2 % (0-10) Platelet Estimate Adequate (ADEQUATE) Anisocytosis Slight Sodium Level 138 mmol/L (136-145) Potassium Level 4.4 mmol/L (3.5-5.1) Chloride Level 100 mmol/L (98-107) Carbon Dioxide Level 26 mmol/L (21-32) Anion Gap 12 (6-14) Blood Urea Nitrogen 63 mg/dL (8-26) Creatinine 8.9 mg/dL (0.7-1.3) Estimated GFR (Cockcroft-Gault) 6.2 Glucose Level 273 mg/dL (70-99) Calcium Level 8.5 mg/dL (8.5-10.1) Phosphorus Level 8.8 mg/dL (2.6-4.7) Total Bilirubin 0.4 mg/dL (0.2-1.0) Direct Bilirubin 0.1 mg/dL (0.0-0.2) Aspartate Amino Transf (AST/SGOT) 40 U/L (15-37) Alanine Aminotransferase (ALT/SGPT) 8 U/L (16-63) Alkaline Phosphatase 388 U/L (46-116) Ammonia < 10 mcmol/L (11-34) Total Protein 4.8 g/dL (6.4-8.2) Albumin 0.8 g/dL (3.4-5.0) Thyroid Stimulating Hormone (TSH) 5.054 uIU/mL (0.358-3.74) Urine Collection Type U cath Urine Color Yellow Urine Clarity Clear Urine pH 7.5 Urine Specific [place] 1.015 Urine Protein 100 mg/dL (NEG-TRACE) Urine Glucose (UA) 500 mg/dL (NEG) Urine Ketones (Stick) Negative mg/dL (NEG) Urine Blood Negative (NEG) Urine Nitrite Negative (NEG) Urine Bilirubin Negative (NEG) Urine Urobilinogen Dipstick 0.2 mg/dL (0.2 mg/dL) Urine Leukocyte Esterase Negative (NEG) Urine RBC 0 /HPF (0-2) Urine WBC 1-4 /HPF (0-4) Urine Amorphous Sediment Present /HPF Urine Bacteria 0 /HPF (0-FEW) Test 10/11/19 16:17 10/11/19 21:08 10/12/19 05:40 10/12/19 07:22 Glucose (Fingerstick) 147 mg/dL (70-99) 234 mg/dL (70-99) 288 mg/dL (70-99) 302 mg/dL (70-99) Laboratory Tests Test 10/11/19 08:50 10/11/19 10:47 10/11/19 13:00 10/11/19 16:17 White Blood Count 14.9 x10^3/uL (4.0-11.0) Red Blood Count 3.02 x10^6/uL (4.30-5.70) Hemoglobin 8.8 g/dL (13.0-17.5) Hematocrit 28.9 % (39.0-53.0) Mean Corpuscular Volume 96 fL (79-100) Mean Corpuscular Hemoglobin 29 pg (25-35) Mean Corpuscular Hemoglobin Concent 30 g/dL (31-37) Red Cell Distribution Width 18.4 % (11.5-14.5) Platelet Count 241 x10^3/uL (140-400) Neutrophils (%) (Auto) 87 % (31-73) Lymphocytes (%) (Auto) 6 % (24-48) Monocytes (%) (Auto) 7 % (0-9) Eosinophils (%) (Auto) 0 % (0-3) Basophils (%) (Auto) 1 % (0-3) Neutrophils # (Auto) 13.0 x10^3/uL (1.8-7.7) Lymphocytes # (Auto) 0.8 x10^3/uL (1.0-4.8) Monocytes # (Auto) 1.0 x10^3/uL (0.0-1.1) Eosinophils # (Auto) 0.0 x10^3/uL (0.0-0.7) Basophils # (Auto) 0.1 x10^3/uL (0.0-0.2) Segmented Neutrophils % 92 % (35-66) Lymphocytes % 6 % (24-48) Monocytes % 2 % (0-10) Platelet Estimate Adequate (ADEQUATE) Anisocytosis Slight Sodium Level 138 mmol/L (136-145) Potassium Level 4.4 mmol/L (3.5-5.1) Chloride Level 100 mmol/L (98-107) Carbon Dioxide Level 26 mmol/L (21-32) Anion Gap 12 (6-14) Blood Urea Nitrogen 63 mg/dL (8-26) Creatinine 8.9 mg/dL (0.7-1.3) Estimated GFR (Cockcroft-Gault) 6.2 Glucose Level 273 mg/dL (70-99) Calcium Level 8.5 mg/dL (8.5-10.1) Phosphorus Level 8.8 mg/dL (2.6-4.7) Total Bilirubin 0.4 mg/dL (0.2-1.0) Direct Bilirubin 0.1 mg/dL (0.0-0.2) Aspartate Amino Transf (AST/SGOT) 40 U/L (15-37) Alanine Aminotransferase (ALT/SGPT) 8 U/L (16-63) Alkaline Phosphatase 388 U/L (46-116) Ammonia < 10 mcmol/L (11-34) Total Protein 4.8 g/dL (6.4-8.2) Albumin 0.8 g/dL (3.4-5.0) Thyroid Stimulating Hormone (TSH) 5.054 uIU/mL (0.358-3.74) Glucose (Fingerstick) 187 mg/dL (70-99) 147 mg/dL (70-99) Urine Collection Type U cath Urine Color Yellow Urine Clarity Clear Urine pH 7.5 Urine Specific [place] 1.015 Urine Protein 100 mg/dL (NEG-TRACE) Urine Glucose (UA) 500 mg/dL (NEG) Urine Ketones (Stick) Negative mg/dL (NEG) Urine Blood Negative (NEG) Urine Nitrite Negative (NEG) Urine Bilirubin Negative (NEG) Urine Urobilinogen Dipstick 0.2 mg/dL (0.2 mg/dL) Urine Leukocyte Esterase Negative (NEG) Urine RBC 0 /HPF (0-2) Urine WBC 1-4 /HPF (0-4) Urine Amorphous Sediment Present /HPF Urine Bacteria 0 /HPF (0-FEW) Test 10/11/19 21:08 10/12/19 05:40 10/12/19 07:22 Glucose (Fingerstick) 234 mg/dL (70-99) 288 mg/dL (70-99) 302 mg/dL (70-99) Microbiology 10/08/19 Blood Culture - Preliminary, Resulted NO GROWTH AFTER 3 DAYS 10/08/19 Aerobic Culture - Preliminary, Resulted 10/08/19 Aerobic Culture Result 1 (HEATHER) - Preliminary, Resulted 10/08/19 Gram Stain - Final, Resulted 10/08/19 Gram Stain Result 1 (HEATHER) - Final, Resulted 10/08/19 Gram Stain Result 2 (HEATHER) - Final, Resulted Medications Current Medications Ondansetron HCl (Zofran) 4 mg PRN Q4HRS PRN IV NAUSEA/VOMITING; Start 10/08/19 at 16:30 Acetaminophen (Tylenol) 650 mg PRN Q4HRS PRN PO TEMP OVER 100.4F OR MILD PAIN; Start 10/08/19 at 16:30 Docusate Sodium (Colace) 100 mg PRN BID PRN PO CONSTIPATION; Start 10/08/19 at 16:30 Insulin Human Lispro (HumaLOG) 0-7 UNITS TIDACHC SQ Last administered on 10/11/19at 08:49; Start 10/08/19 at 21:00 Dextrose (Dextrose 50%-Water Syringe) 12.5 gm PRN Q15MIN PRN IV SEE COMMENTS Last administered on 10/08/19at 21:05; Start 10/08/19 at 17:00 Dextrose (Iv Dextrose 5%) 250 ml PRN Q15MIN PRN IV SEE COMMENTS; Start 10/08/19 at 17:00 Aspirin (Ecotrin) 81 mg DAILYWBKFT PO Last administered on 10/10/19at 10:10; Start 10/09/19 at 08:00 Atorvastatin Calcium (Lipitor) 40 mg HS PO Last administered on 10/09/19at 21:30; Start 10/08/19 at 21:00 Furosemide (Lasix) 80 mg BID94 PO Last administered on 10/10/19at 16:15; Start 10/08/19 at 18:00 Lactobacillus Rhamnosus (Culturelle) 1 cap BID PO Last administered on 10/10/19at 10:09; Start 10/08/19 at 21:00 Montelukast Sodium (Singulair) 10 mg HS PRN PO ALLERGIES; Start 10/08/19 at 17:00 Ondansetron HCl (Zofran Odt) 4 mg PRN Q6HRS PRN PO NAUSEA; Start 10/08/19 at 17:00 Tamsulosin HCl (Flomax) 0.4 mg HS PO Last administered on 10/09/19at 21:30; Start 10/08/19 at 21:00 Tramadol HCl (Ultram) 50 mg PRN Q6HRS PRN PO MODERATE PAIN; Start 10/08/19 at 17:00 Insulin Glargine (Lantus Syringe) 10 unit QHS SQ Last administered on 10/11/19at 22:13; Start 10/08/19 at 21:00 Losartan Potassium (Cozaar) 100 mg HS PO Last administered on 10/09/19at 21:30; Start 10/08/19 at 21:00 Pantoprazole Sodium (Protonix) 40 mg DAILYAC PO Last administered on 10/10/19at 10:10; Start 10/09/19 at 07:30 Sodium Chloride 500 ml @ 500 mls/hr 1X ONCE IV Last administered on 10/08/19at 20:00; Start 10/08/19 at 20:00; Stop 10/08/19 at 20:59; Status DC Calcium Acetate (Phoslo) 1,334 mg TIDWMEALS PO Last administered on 10/10/19at 17:35; Start 10/08/19 at 20:00 Vitamin A/Vitamin D (Vitamin A & D Ointment) 1 lucero PRN Q1HR PRN TP SKIN PROTECTION; Start 10/09/19 at 09:00 Doxycycline Hyclate (Vibra-Tab) 100 mg BID PO Last administered on 10/10/19at 10:08; Start 10/09/19 at 11:00; Stop 10/10/19 at 10:21; Status DC Fluconazole (Diflucan) 100 mg DAILY PO Last administered on 10/10/19at 10:08; Start 10/09/19 at 10:30 Amoxicillin/ Clavulanate Potassium (Augmentin 500/ 125mg) 1 tab DAILY PO Last administered on 10/10/19at 10:08; Start 10/09/19 at 10:30; Stop 10/10/19 at 10:21; Status DC Vancomycin HCl (Vanco Per Pharmacy) 1 each PRN DAILY PRN MC SEE COMMENTS Last administered on 10/11/19at 15:08; Start 10/10/19 at 10:30 Piperacillin Sod/ Tazobactam Sod 2.25 gm/Sodium Chloride 50 ml @ 100 mls/hr Q8HRS IV Last administered on 10/11/19at 22:06; Start 10/10/19 at 11:00 Vancomycin HCl 1.5 gm/Sodium Chloride 500 ml @ 250 mls/hr 1X ONCE IV Last administered on 1/22/20at 16:14; Start 10/10/19 at 11:00; Stop 10/10/19 at 12:59; Status DC Vancomycin HCl (Vancomycin Random Level) 1 each 1X ONCE MC Last administered on 10/12/19at 05:00; Start 10/12/19 at 05:00; Stop 10/12/19 at 05:01; Status DC Acetaminophen (Tylenol Supp) 650 mg PRN Q6HRS PRN MI MILD PAIN / TEMP; Start 10/12/19 at 06:00 Active Scripts Active Tramadol Hcl 50 Mg Tablet 50 Mg PO PRN Q6HRS PRN 3 Days Culturelle (Lactobacillus Rhamnosus Gg) 1 Each Cap.sprink 1 Cap PO BID 7 Days [Fluconazole] 100 MG Tablet 100 Mg PO DAILY 7 Days Doxycycline Hyclate 100 Mg Tablet 100 Mg PO BID 7 Days Amox Tr-K Clv 500-125 Mg Tab (Amoxicillin/Potassium Clav) 1 Each Tablet 1 Tab PO DAILY 7 Days Aspirin Ec (Aspirin) 81 Mg Tablet. 81 Mg PO DAILYWBKFT Reported Glyburide 5 Mg Tablet 5 Mg PO DAILY Lantus Solostar (Insulin Glargine,Hum.rec.anlog) 100 Unit/1 Ml Insuln.pen 10 Unit SQ QHS Humalog (Insulin Lispro) 100 Unit/1 Ml Cartridge 100 Unit SQ TIDWMEALS Omeprazole 20 Mg Tablet. 20 Mg PO DAILY Calcitriol 0.5 Mcg Capsule 0.5 Mcg PO DAILY Furosemide 80 Mg Tablet 80 Mg PO BID Glucagen (Glucagon,Human Recombinant) 1 Mg Vial 1 PRN PRN Tamsulosin Hcl 0.4 Mg Cap.er.24h 1 Cap PO HS Montelukast Sodium Tablet (Montelukast Sodium) 10 Mg Tablet 1 Tab PO HS PRN Ondansetron Odt (Ondansetron) 4 Mg Tab.rapdis 1 Tab PO PRN Q6-8HRS PRN Lantus Solostar (Insulin Glargine,Hum.rec.anlog) 100 Unit/1 Ml Insuln.pen 11 Unit SQ QHS Humalog (Insulin Lispro) 100 Unit/1 Ml Cartridge 22 Unit SQ TIDWMEALS Cozaar (Losartan Potassium) 100 Mg Tablet 100 Mg PO HS Carvedilol 25 Mg Tablet 25 Mg PO BIDWMEALS Atorvastatin Calcium 40 Mg Tablet 40 Mg PO HS Amlodipine Besylate 10 Mg Tablet 10 Mg PO DAILY Vitals/I & O Vital Sign - Last 24 Hours 10/11/19 10/11/19 10/11/19 10/11/19 11:00 15:00 19:00 20:07 Temp 98.8 98.8 98.1 98.8 98.8 98.1 Pulse 104 104 100 Resp 16 16 18 B/P (MAP) 115/87 (96) 105/42 (63) 100/39 (59) Pulse Ox 100 95 94 O2 Delivery Nasal Cannula Nasal Cannula Nasal Cannula Nasal Cannula O2 Flow Rate 2.0 2.0 2.0 2.0 10/11/19 10/11/19 10/12/19 21:00 23:00 03:00 Temp 100.4 102.0 100.4 102.0 Pulse 103 103 111 Resp 18 19 B/P (MAP) 100/41 100/41 (60) 111/45 (67) Pulse Ox 96 90 O2 Delivery Nasal Cannula Nasal Cannula O2 Flow Rate 2.0 2.0 Intake and Output 10/11/19 10/11/19 10/12/19 15:00 23:00 07:00 Intake Total 0 ml Output Total 300 ml Balance -300 ml 0 ml Nutrition Consultation Dietary Evaluation: Recommendations by RD: Dietary education by RD, Increase Calorie Intake, Protein supplementation Comments: Nepro bid REC mvi and vit c per wound protocal due to multiple skin breakdown areas - See wound assessment Expected Outcomes/Goals: to meet >50% est nutr needs Interpretation of weight loss: >5% in 1 month Malnutrition Findings: Food and Nutrition Intake (Sev: <50% est energy req 5days Body Fat Depletion (Non Severe: Mild Depletion Weight Status: Underweight JOSE SOLANO MD Oct 12, 2019 08:40
[2019-10-12] MEDS: FLUCONAZOLE 100 MG TABLET. PO SCH (09:00)
[2019-10-12] MEDS: LACTOBACILLUS RHAMNOSUS GG 1 CAPSULE. PO SCH ×2 (09:00→21:00)
[2019-10-12] MEDS: FUROSEMIDE 80 MG TABLET. PO SCH ×2 (09:00→16:00)
--- NOTE | 2019-10-12 09:31 | PDOC ---
PROGRESS NOTES Assessment Worsening metabolic encephalopathy, I wonder if he is developing some early- onset Alzheimer's dementia. Dysphagia. I do not find any direct evidence of neuromuscular junction disease. He is more alert today and no longer has the ptosis and its conjugate gaze Multiple medical problems including leukocytosis, diabetic ketoacidosis, chronic balanitis, end-stage renal disease on peritoneal dialysis, peripheral master disease, anemia of chronic disease. Plan Treat medical diseases Hold on lumbar puncture Await additional laboratory studies Electroencephalogram Subjective Denies pain Objective Vital Signs Date Time Temp Pulse Resp B/P (MAP) Pulse Ox O2 Delivery O2 Flow Rate FiO2 10/12/19 07:00 98.1 100 16 137/38 (71) 98 Nasal Cannula 2.0 98.1 Intake and Output 10/12/19 07:00 Intake Total 0 ml Output Total 300 ml Balance -300 ml Intake Oral 0 ml Output Urine Total 300 ml # Voids 1 PHYSICAL EXAM Alert. Oriented to person. Names and repeats, follows commands. PERRL. EOMI. CN: no focal findings. Muscle tone: normal. Muscle strength: 4/5 DTR: 0-1+ Plantar reflex: flexor Gait: not examined in bed. Sensory exam: stocking loss. No cerebellar signs elicited. Review of Relevant I have reviewed the following items alex (where applicable) has been applied. Labs Laboratory Tests Test 10/10/19 10:19 10/10/19 11:54 10/10/19 16:50 10/10/19 21:08 Glucose (Fingerstick) 112 mg/dL (70-99) 109 mg/dL (70-99) 121 mg/dL (70-99) 224 mg/dL (70-99) Test 10/11/19 07:06 10/11/19 08:50 10/11/19 10:47 10/11/19 13:00 Glucose (Fingerstick) 260 mg/dL (70-99) 187 mg/dL (70-99) White Blood Count 14.9 x10^3/uL (4.0-11.0) Red Blood Count 3.02 x10^6/uL (4.30-5.70) Hemoglobin 8.8 g/dL (13.0-17.5) Hematocrit 28.9 % (39.0-53.0) Mean Corpuscular Volume 96 fL (79-100) Mean Corpuscular Hemoglobin 29 pg (25-35) Mean Corpuscular Hemoglobin Concent 30 g/dL (31-37) Red Cell Distribution Width 18.4 % (11.5-14.5) Platelet Count 241 x10^3/uL (140-400) Neutrophils (%) (Auto) 87 % (31-73) Lymphocytes (%) (Auto) 6 % (24-48) Monocytes (%) (Auto) 7 % (0-9) Eosinophils (%) (Auto) 0 % (0-3) Basophils (%) (Auto) 1 % (0-3) Neutrophils # (Auto) 13.0 x10^3/uL (1.8-7.7) Lymphocytes # (Auto) 0.8 x10^3/uL (1.0-4.8) Monocytes # (Auto) 1.0 x10^3/uL (0.0-1.1) Eosinophils # (Auto) 0.0 x10^3/uL (0.0-0.7) Basophils # (Auto) 0.1 x10^3/uL (0.0-0.2) Segmented Neutrophils % 92 % (35-66) Lymphocytes % 6 % (24-48) Monocytes % 2 % (0-10) Platelet Estimate Adequate (ADEQUATE) Anisocytosis Slight Sodium Level 138 mmol/L (136-145) Potassium Level 4.4 mmol/L (3.5-5.1) Chloride Level 100 mmol/L (98-107) Carbon Dioxide Level 26 mmol/L (21-32) Anion Gap 12 (6-14) Blood Urea Nitrogen 63 mg/dL (8-26) Creatinine 8.9 mg/dL (0.7-1.3) Estimated GFR (Cockcroft-Gault) 6.2 Glucose Level 273 mg/dL (70-99) Calcium Level 8.5 mg/dL (8.5-10.1) Phosphorus Level 8.8 mg/dL (2.6-4.7) Total Bilirubin 0.4 mg/dL (0.2-1.0) Direct Bilirubin 0.1 mg/dL (0.0-0.2) Aspartate Amino Transf (AST/SGOT) 40 U/L (15-37) Alanine Aminotransferase (ALT/SGPT) 8 U/L (16-63) Alkaline Phosphatase 388 U/L (46-116) Ammonia < 10 mcmol/L (11-34) Total Protein 4.8 g/dL (6.4-8.2) Albumin 0.8 g/dL (3.4-5.0) Thyroid Stimulating Hormone (TSH) 5.054 uIU/mL (0.358-3.74) Urine Collection Type U cath Urine Color Yellow Urine Clarity Clear Urine pH 7.5 Urine Specific [place] 1.015 Urine Protein 100 mg/dL (NEG-TRACE) Urine Glucose (UA) 500 mg/dL (NEG) Urine Ketones (Stick) Negative mg/dL (NEG) Urine Blood Negative (NEG) Urine Nitrite Negative (NEG) Urine Bilirubin Negative (NEG) Urine Urobilinogen Dipstick 0.2 mg/dL (0.2 mg/dL) Urine Leukocyte Esterase Negative (NEG) Urine RBC 0 /HPF (0-2) Urine WBC 1-4 /HPF (0-4) Urine Amorphous Sediment Present /HPF Urine Bacteria 0 /HPF (0-FEW) Test 10/11/19 16:17 10/11/19 21:08 10/12/19 05:40 10/12/19 07:22 Glucose (Fingerstick) 147 mg/dL (70-99) 234 mg/dL (70-99) 288 mg/dL (70-99) 302 mg/dL (70-99) Laboratory Tests Test 10/11/19 10:47 10/11/19 13:00 10/11/19 16:17 10/11/19 21:08 Glucose (Fingerstick) 187 mg/dL (70-99) 147 mg/dL (70-99) 234 mg/dL (70-99) Urine Collection Type U cath Urine Color Yellow Urine Clarity Clear Urine pH 7.5 Urine Specific [place] 1.015 Urine Protein 100 mg/dL (NEG-TRACE) Urine Glucose (UA) 500 mg/dL (NEG) Urine Ketones (Stick) Negative mg/dL (NEG) Urine Blood Negative (NEG) Urine Nitrite Negative (NEG) Urine Bilirubin Negative (NEG) Urine Urobilinogen Dipstick 0.2 mg/dL (0.2 mg/dL) Urine Leukocyte Esterase Negative (NEG) Urine RBC 0 /HPF (0-2) Urine WBC 1-4 /HPF (0-4) Urine Amorphous Sediment Present /HPF Urine Bacteria 0 /HPF (0-FEW) Test 10/12/19 05:40 10/12/19 07:22 Glucose (Fingerstick) 288 mg/dL (70-99) 302 mg/dL (70-99) Microbiology 10/08/19 Blood Culture - Preliminary, Resulted NO GROWTH AFTER 3 DAYS 10/08/19 Aerobic Culture - Preliminary, Resulted 10/08/19 Aerobic Culture Result 1 (HEATHER) - Preliminary, Resulted 10/08/19 Gram Stain - Final, Resulted 10/08/19 Gram Stain Result 1 (HEATHER) - Final, Resulted 10/08/19 Gram Stain Result 2 (HEATHER) - Final, Resulted Medications Current Medications Ondansetron HCl (Zofran) 4 mg PRN Q4HRS PRN IV NAUSEA/VOMITING; Start 10/08/19 at 16:30 Acetaminophen (Tylenol) 650 mg PRN Q4HRS PRN PO TEMP OVER 100.4F OR MILD PAIN; Start 10/08/19 at 16:30 Docusate Sodium (Colace) 100 mg PRN BID PRN PO CONSTIPATION; Start 10/08/19 at 16:30 Insulin Human Lispro (HumaLOG) 0-7 UNITS TIDACHC SQ Last administered on 10/11/19at 08:49; Start 10/08/19 at 21:00 Dextrose (Dextrose 50%-Water Syringe) 12.5 gm PRN Q15MIN PRN IV SEE COMMENTS Last administered on 10/08/19at 21:05; Start 10/08/19 at 17:00 Dextrose (Iv Dextrose 5%) 250 ml PRN Q15MIN PRN IV SEE COMMENTS; Start 10/08/19 at 17:00 Aspirin (Ecotrin) 81 mg DAILYWBKFT PO Last administered on 10/10/19at 10:10; Start 10/09/19 at 08:00 Atorvastatin Calcium (Lipitor) 40 mg HS PO Last administered on 10/09/19at 21:30; Start 10/08/19 at 21:00 Furosemide (Lasix) 80 mg [id number] PO Last administered on 10/10/19at 16:15; Start 10/08/19 at 18:00 Lactobacillus Rhamnosus (Culturelle) 1 cap BID PO Last administered on 10/10/19at 10:09; Start 10/08/19 at 21:00 Montelukast Sodium (Singulair) 10 mg HS PRN PO ALLERGIES; Start 10/08/19 at 17:00 Ondansetron HCl (Zofran Odt) 4 mg PRN Q6HRS PRN PO NAUSEA; Start 10/08/19 at 17:00 Tamsulosin HCl (Flomax) 0.4 mg HS PO Last administered on 10/09/19at 21:30; Start 10/08/19 at 21:00 Tramadol HCl (Ultram) 50 mg PRN Q6HRS PRN PO MODERATE PAIN; Start 10/08/19 at 17:00 Insulin Glargine (Lantus Syringe) 10 unit QHS SQ Last administered on 10/11/19at 22:13; Start 10/08/19 at 21:00 Losartan Potassium (Cozaar) 100 mg HS PO Last administered on 10/09/19at 21:30; Start 10/08/19 at 21:00 Pantoprazole Sodium (Protonix) 40 mg DAILYAC PO Last administered on 10/10/19at 10:10; Start 10/09/19 at 07:30 Sodium Chloride 500 ml @ 500 mls/hr 1X ONCE IV Last administered on 10/08/19at 20:00; Start 10/08/19 at 20:00; Stop 10/08/19 at 20:59; Status DC Calcium Acetate (Phoslo) 1,334 mg TIDWMEALS PO Last administered on 10/10/19at 17:35; Start 10/08/19 at 20:00 Vitamin A/Vitamin D (Vitamin A & D Ointment) 1 lucero PRN Q1HR PRN TP SKIN PROTECTION; Start 10/09/19 at 09:00 Doxycycline Hyclate (Vibra-Tab) 100 mg BID PO Last administered on 10/10/19at 10:08; Start 10/09/19 at 11:00; Stop 10/10/19 at 10:21; Status DC Fluconazole (Diflucan) 100 mg DAILY PO Last administered on 10/10/19at 10:08; Start 10/09/19 at 10:30 Amoxicillin/ Clavulanate Potassium (Augmentin 500/ 125mg) 1 tab DAILY PO Last administered on 10/10/19at 10:08; Start 10/09/19 at 10:30; Stop 10/10/19 at 10:21; Status DC Vancomycin HCl (Vanco Per Pharmacy) 1 each PRN DAILY PRN MC SEE COMMENTS Last administered on 10/11/19at 15:08; Start 10/10/19 at 10:30 Piperacillin Sod/ Tazobactam Sod 2.25 gm/Sodium Chloride 50 ml @ 100 mls/hr Q8HRS IV Last administered on 10/11/19at 22:06; Start 10/10/19 at 11:00 Vancomycin HCl 1.5 gm/Sodium Chloride 500 ml @ 250 mls/hr 1X ONCE IV Last administered on 10/10/19at 16:14; Start 10/10/19 at 11:00; Stop 10/10/19 at 12:59; Status DC Vancomycin HCl (Vancomycin Random Level) 1 each 1X ONCE MC Last administered on 10/12/19at 05:00; Start 10/12/19 at 05:00; Stop 10/12/19 at 05:01; Status DC Acetaminophen (Tylenol Supp) 650 mg PRN Q6HRS PRN [place] MILD PAIN / TEMP; Start 10/12/19 at 06:00 Active Scripts Active Tramadol Hcl 50 Mg Tablet 50 Mg PO PRN Q6HRS PRN 3 Days Culturelle (Lactobacillus Rhamnosus Gg) 1 Each Cap.sprink 1 Cap PO BID 7 Days [Fluconazole] 100 MG Tablet 100 Mg PO DAILY 7 Days Doxycycline Hyclate 100 Mg Tablet 100 Mg PO BID 7 Days Amox Tr-K Clv 500-125 Mg Tab (Amoxicillin/Potassium Clav) 1 Each Tablet 1 Tab PO DAILY 7 Days Aspirin Ec (Aspirin) 81 Mg Tablet. 81 Mg PO DAILYWBKFT Reported Glyburide 5 Mg Tablet 5 Mg PO DAILY Lantus Solostar (Insulin Glargine,Hum.rec.anlog) 100 Unit/1 Ml Insuln.pen 10 Unit SQ QHS Humalog (Insulin Lispro) 100 Unit/1 Ml Cartridge 100 Unit SQ TIDWMEALS Omeprazole 20 Mg Tablet. 20 Mg PO DAILY Calcitriol 0.5 Mcg Capsule 0.5 Mcg PO DAILY Furosemide 80 Mg Tablet 80 Mg PO BID Glucagen (Glucagon,Human Recombinant) 1 Mg Vial 1 PRN PRN Tamsulosin Hcl 0.4 Mg Cap.er.24h 1 Cap PO HS Montelukast Sodium Tablet (Montelukast Sodium) 10 Mg Tablet 1 Tab PO HS PRN Ondansetron Odt (Ondansetron) 4 Mg Tab.rapdis 1 Tab PO PRN Q6-8HRS PRN Lantus Solostar (Insulin Glargine,Hum.rec.anlog) 100 Unit/1 Ml Insuln.pen 11 Unit SQ QHS Humalog (Insulin Lispro) 100 Unit/1 Ml Cartridge 22 Unit SQ TIDWMEALS Cozaar (Losartan Potassium) 100 Mg Tablet 100 Mg PO HS Carvedilol 25 Mg Tablet 25 Mg PO BIDWMEALS Atorvastatin Calcium 40 Mg Tablet 40 Mg PO HS Amlodipine Besylate 10 Mg Tablet 10 Mg PO DAILY Vitals/I & O Vital Sign - Last 24 Hours 10/11/19 10/11/19 10/11/19 10/11/19 11:00 15:00 19:00 20:07 Temp 98.8 98.8 98.1 98.8 98.8 98.1 Pulse 104 104 100 Resp 16 16 18 B/P (MAP) 115/87 (96) 105/42 (63) 100/39 (59) Pulse Ox 100 95 94 O2 Delivery Nasal Cannula Nasal Cannula Nasal Cannula Nasal Cannula O2 Flow Rate 2.0 2.0 2.0 2.0 10/11/19 10/11/19 10/12/19 10/12/19 21:00 23:00 03:00 07:00 Temp 100.4 102.0 98.1 100.4 102.0 98.1 Pulse 103 103 111 100 Resp 18 19 16 B/P (MAP) 100/41 100/41 (60) 111/45 (67) 137/38 (71) Pulse Ox 96 90 98 O2 Delivery Nasal Cannula Nasal Cannula Nasal Cannula O2 Flow Rate 2.0 2.0 2.0 Intake and Output 10/11/19 10/11/19 10/12/19 15:00 23:00 07:00 Intake Total 0 ml Output Total 300 ml Balance -300 ml 0 ml Images MRI of the brain without contrast 10/11/2019 Clinical History: Altered mental status. Technique: Unenhanced T1-weighted sagittal and axial, T2-weighted axial and coronal and FLAIR, gradient echo and diffusion-weighted axial images of the brain were obtained. Findings: Comparison is made to the patient's CT scan of the head dated 10/01/2019. Images from the study are degraded by patient motion. There is generalized parenchymal atrophy. Patchy, confluent and multiple focal areas of increased signal intensity are seen within the periventricular and subcortical white matter of both cerebral hemispheres on the FLAIR and T2-weighted images consistent with areas of extensive small vessel ischemic disease. An area of encephalomalacia is seen involving the anterior inferior left frontal lobe. No acute parenchymal abnormality is seen. No extra-axial fluid collection is seen. There is no MRI evidence of acute ischemia/infarction. Mild to moderate mucosal thickening is throughout the paranasal sinuses. Small fluid levels are seen involving both maxillary sinuses, left greater than right. There are moderate to large sized mastoid effusions bilaterally. Normal flow voids are seen within the major vascular structures surrounding the brain parenchyma. Impression: No acute parenchymal abnormality is seen. DUANE RAY MD Oct 12, 2019 09:31
[2019-10-12] MEDS: INSULIN LISPRO 300 UNITS/3 ML VIAL. SQ SCH ×4 (09:33→22:01)
--- NOTE | 2019-10-12 09:35 | PDOC2 ---
GI CONSULT Reason For Consult: dysphagia, DPOA requests PEG if indicated HPI: HPI: 53 y/o male admitted w/ encephalopathy. Abnormal swallow evaluation, currently NPO. Additional h/o ESRD - previously HD, now PD. GI asked to see re: possible PEG placement. No meaningful history from him this morning. Med list includes ASA and omeprazole. EGD by Dr. Martinez in 05/2019 for hematemesis showed LA Grade A esophagitis, gastritis, phytobezoar in stomach, and normal duodenum. Follow-up office visit mentions esophageal ulcer. Recs for PPI. PMH: PMH: per chart: CAD, VT, HTN, HLD, COPD, DM, ESRD on PD, anxiety/depression, OA, skull fracture, peripheral neuropathy, balanitis, PVD, GERD angioplasty, LUE AV fistula and ligation, foot surgery, fasciotomy, knee arthroscopy, PD cath placement FH: Family History: Cancer (breast - mother) Social History: Smoke: 2 packs per day ALCOHOL: other (past heavy alcohol use) Drugs: Other (past drug use) ROS: Difficult to obtain. Vitals: Vitals: Vital Signs Date Time Temp Pulse Resp B/P (MAP) Pulse Ox O2 Delivery O2 Flow Rate FiO2 10/12/19 07:00 98.1 100 16 137/38 (71) 98 Nasal Cannula 2.0 98.1 Labs: Labs: Laboratory Tests Test 10/11/19 10:47 10/11/19 13:00 10/11/19 16:17 10/11/19 21:08 Glucose (Fingerstick) 187 mg/dL (70-99) 147 mg/dL (70-99) 234 mg/dL (70-99) Urine Collection Type U cath Urine Color Yellow Urine Clarity Clear Urine pH 7.5 Urine Specific [place] 1.015 Urine Protein 100 mg/dL (NEG-TRACE) Urine Glucose (UA) 500 mg/dL (NEG) Urine Ketones (Stick) Negative mg/dL (NEG) Urine Blood Negative (NEG) Urine Nitrite Negative (NEG) Urine Bilirubin Negative (NEG) Urine Urobilinogen Dipstick 0.2 mg/dL (0.2 mg/dL) Urine Leukocyte Esterase Negative (NEG) Urine RBC 0 /HPF (0-2) Urine WBC 1-4 /HPF (0-4) Urine Amorphous Sediment Present /HPF Urine Bacteria 0 /HPF (0-FEW) Test 10/12/19 05:40 10/12/19 07:22 Glucose (Fingerstick) 288 mg/dL (70-99) 302 mg/dL (70-99) AEROBIC CULTURE Preliminary Preliminary report AEROBIC RES 1 Preliminary Comment No growth in 36 - 48 hours. Performed at: DA - [facility] [id number], [place], [place] [id number] Hydrate Thickener Operator: LEATHA Norton MD, Phone: [phone] GRAM STAIN Final Final report GRAM STAIN RESULT 1 Final Comment Rare white blood cells. GRAM STAIN RESULT 2 Final No organisms seen BLOOD CULTURE Preliminary NO GROWTH AFTER 3 DAYS Allergies: Coded Allergies: lamotrigine (Verified Allergy, Severe, HIVES, SHORTNESS OF BREATH, 08/27/19) Medications: Current Medications Medications (Trade) Dose Ordered Sig/Rosalino Route PRN Reason Start Time Stop Time Status Last Admin Dose Admin Vancomycin HCl (Vancomycin Random Level) 1 each 1X ONCE MC 10/12/19 05:00 10/12/19 05:01 DC 10/12/19 05:00 Imaging: Imaging: Bedside Swallow Evaluation completed. Please refer to full report for additional information. Impressions: Moderate oropharyngeal dysphagia w/ oropharyngeal swallow delay, decreased hyopharyngeal excursion and overt s/s aspiration w/ limited PO trials. High risk of aspiration for all PO w/ no safe consistency identified. Pt's cognitive status, slow responding and weakness likely contributors to some exte nt. Duration of need for NPO currently unknown. 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 Head CT 10/11 Impression: Acute and chronic paranasal sinusitis noted since 10/01/2019 CT head without contrast. No suspicious intracranial process. Brain MRI 10/11 Impression: No acute parenchymal abnormality is seen. Abd US 10/12 pending PE: GEN: NAD, alone in room HEENT: Atraumatic, PERRL LUNGS: CTAB HEART: RRR ABD: soft, non-tender, PD cath LLQ w/ bandage EXTREMITY: BUE edema SKIN: No rashes, no jaundice NEURO/PSYCH: confused, mumbling A/P: A/P: Encephalopathy, dysphagia ESRD on PD - previous HD, LUE AV fistula ligated 08/2019 Leukotyosis, ACD, elevated Alk Phos Chronic balanitis GERD -- Not a PEG candidate while on peritoneal dialysis. Change to IV PPI. B12 already ordered. PADILLA HONG Oct 12, 2019 09:35
--- NOTE | 2019-10-12 09:35 | PDOC ---
SUBJECTIVE ROS stable OBJECTIVE Vital Signs Vital Signs Date Time Temp Pulse Resp B/P (MAP) Pulse Ox O2 Delivery O2 Flow Rate FiO2 10/12/19 07:00 98.1 100 16 137/38 (71) 98 Nasal Cannula 2.0 98.1 I & 0 Intake and Output 10/12/19 07:00 Intake Total 0 ml Output Total 300 ml Balance -300 ml Intake Oral 0 ml Output Urine Total 300 ml # Voids 1 PHYSICAL EXAM Physical Exam General: No acute distress, HEENT: OM moist Neck Supple Lungs: Clear to auscultation, Normal air movement Heart: S1S2, RRR, no thrills, no rubs, no gallops, no murmurs Cardiovascular: S1, S2 Abdomen: Normal bowel sounds, Soft, No tenderness, PD cath in place, no e/ Exit site infection Extremities: left av fistula , no bruit or thrill Skin: No rashes, No quinteros DIAGNOSIS/ASSESSMENT Assessment & Plan ESRD- Dr Riggs's pt at [facility] per Home Prescription ,resp status stable , continue same prescription, PD fluid clear, exit site no e/o infection Straight cath yest with 300 ml of urine , UA unremarkable recommend switching to HD pt has social issues - increase likelihood of non compliance and risk of peritonitis Primary considering PEG as well Will need access - Lt AV access Non functioning- IR/Vascular consult for further eval; meanwhile continue PD Fever- hold off on Tunneled HDC Anemia- VAN for Hgb < 10 Monitor Acute encephalopathy - metabolic 2/2 DKA and toxic 2/2 likely infectious etiology DKA, 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- On phoslo Phos improving HTN- low hold losartan for low BP Severe protein calorie malnutrition albumin 1.1, COMMENT/RELEVANT DATA Meds Current Medications Medications (Trade) Dose Ordered Sig/Rosalino Start Time Stop Time Status Last Admin Dose Admin Acetaminophen (Tylenol Supp) 650 mg PRN Q6HRS PRN 10/12/19 06:00 Acetaminophen (Tylenol) 650 mg PRN Q4HRS PRN 10/08/19 16:30 Amoxicillin/ Clavulanate Potassium (Augmentin 500/ 125mg) 1 tab DAILY 10/09/19 10:30 10/10/19 10:21 DC 10/10/19 10:08 1 TAB Aspirin (Ecotrin) 81 mg DAILYWBKFT 10/09/19 08:00 10/10/19 10:10 81 MG Atorvastatin Calcium (Lipitor) 40 mg HS 10/08/19 21:00 10/09/19 21:30 40 MG Calcium Acetate (Phoslo) 1,334 mg TIDWMEALS 10/08/19 20:00 10/10/19 17:35 1,334 MG Dextrose (Dextrose 50%-Water Syringe) 12.5 gm PRN Q15MIN PRN 10/08/19 17:00 10/08/19 21:05 25 GM Dextrose (Iv Dextrose 5%) 250 ml PRN Q15MIN PRN 10/08/19 17:00 Docusate Sodium (Colace) 100 mg PRN BID PRN 10/08/19 16:30 Doxycycline Hyclate (Vibra-Tab) 100 mg BID 10/09/19 11:00 10/10/19 10:21 DC 10/10/19 10:08 100 MG Fluconazole (Diflucan) 100 mg DAILY 10/09/19 10:30 10/10/19 10:08 100 MG Furosemide (Lasix) 80 mg BID94 10/08/19 18:00 10/10/19 16:15 80 MG Insulin Glargine (Lantus Syringe) 10 unit QHS 10/08/19 21:00 10/11/19 22:13 10 UNIT Insulin Human Lispro (HumaLOG) 0-7 UNITS TIDACHC 10/08/19 21:00 10/11/19 08:49 3 UNITS Lactobacillus Rhamnosus (Culturelle) 1 cap BID 10/08/19 21:00 10/10/19 10:09 1 CAP Losartan Potassium (Cozaar) 100 mg HS 10/08/19 21:00 10/09/19 21:30 100 MG Montelukast Sodium (Singulair) 10 mg HS PRN 10/08/19 17:00 Ondansetron HCl (Zofran Odt) 4 mg PRN Q6HRS PRN 10/08/19 17:00 Ondansetron HCl (Zofran) 4 mg PRN Q4HRS PRN 10/08/19 16:30 Pantoprazole Sodium (Protonix) 40 mg DAILYAC 10/09/19 07:30 10/10/19 10:10 40 MG Piperacillin Sod/ Tazobactam Sod 2.25 gm/Sodium Chloride 50 ml @ 100 mls/hr Q8HRS 10/10/19 11:00 10/11/19 22:06 100 MLS/HR Sodium Chloride 500 ml @ 500 mls/hr 1X ONCE 10/08/19 20:00 10/08/19 20:59 DC 10/08/19 20:00 500 MLS/HR Tamsulosin HCl (Flomax) 0.4 mg HS 10/08/19 21:00 10/09/19 21:30 0.4 MG Tramadol HCl (Ultram) 50 mg PRN Q6HRS PRN 10/08/19 17:00 Vancomycin HCl (Vanco Per Pharmacy) 1 each PRN DAILY PRN 10/10/19 10:30 10/11/19 15:08 1 EACH Vancomycin HCl (Vancomycin Random Level) 1 each 1X ONCE 10/12/19 05:00 10/12/19 05:01 DC 10/12/19 05:00 1 EACH Vancomycin HCl 1.5 gm/Sodium Chloride 500 ml @ 250 mls/hr 1X ONCE 10/10/19 11:00 10/10/19 12:59 DC 10/10/19 16:14 250 MLS/HR Vitamin A/Vitamin D (Vitamin A & D Ointment) 1 lucero PRN Q1HR PRN 10/09/19 09:00 Lab Laboratory Tests Test 10/11/19 10:47 10/11/19 13:00 10/11/19 16:17 10/11/19 21:08 Glucose (Fingerstick) 187 mg/dL (70-99) 147 mg/dL (70-99) 234 mg/dL (70-99) Urine Collection Type U cath Urine Color Yellow Urine Clarity Clear Urine pH 7.5 Urine Specific [place] 1.015 Urine Protein 100 mg/dL (NEG-TRACE) Urine Glucose (UA) 500 mg/dL (NEG) Urine Ketones (Stick) Negative mg/dL (NEG) Urine Blood Negative (NEG) Urine Nitrite Negative (NEG) Urine Bilirubin Negative (NEG) Urine Urobilinogen Dipstick 0.2 mg/dL (0.2 mg/dL) Urine Leukocyte Esterase Negative (NEG) Urine RBC 0 /HPF (0-2) Urine WBC 1-4 /HPF (0-4) Urine Amorphous Sediment Present /HPF Urine Bacteria 0 /HPF (0-FEW) Test 10/12/19 05:40 10/12/19 07:22 Glucose (Fingerstick) 288 mg/dL (70-99) 302 mg/dL (70-99) Results All relevant outside records, renal labs, imaging studies, telemetry/EKG's were reviewed. IVAN APARICIO MD Oct 12, 2019 09:35
[2019-10-12 11:00] VITALS: BP 91/65
--- NOTE | 2019-10-12 11:14 | RAD ---
Examination: ABDOMEN COMPLETE History: Elevated alkaline phosphatase Comparison/Correlation: 09/10/2019 CT abdomen and pelvis without contrast Findings: Upper abdominal ultrasound exam was performed. Hepatic echotexture is normal. Portal venous flow is normal. Small amount of right lower quadrant ascites is present.. Common bile duct measures up to 0.5 cm diameter. No biliary dilatation. Gallbladder is mildly distended with diameter of up to 10 cm a small amount of the debris within it. No wall thickening or cholelithiasis. Portal venous flow is normal. Right kidney measures 10.7 cm x 4.8 cm x 1 cm. Left kidney measures 6.8 cm x 2.5 cm x 2.9 cm. No hydronephrosis. Renal cortical atrophy bilaterally is present. Echogenic foci involving the kidneys correspond to arterial calcification noted on recent CT scan. Proximal pancreas is normal. Distal pancreas is obscured by bowel gas. Atherosclerotic involvement of the abdominal aorta noted. Abdominal aorta and inferior vena cava are not optimally delineated on this exam. Impression: Small amount of ascites in the right lower quadrant noted. No biliary dilatation. Electronically signed by: Sabino Carcamo MD (10/12/2019 11:11 AM) [facility]
[2019-10-12] MEDS: PANTOPRAZOLE IV PUSH 40 MG VIAL. IVP SCH (11:17)
--- NOTE | 2019-10-12 11:35 | PDOC ---
Infectious Disease Note Subjective Subjective Pt well known to us from recent admissions Just dc Oct 03 with Augment/doxy/Fluconazole - he cannot tell me if he was taking these at home 53 yo male brought in again for mental status change and weakness to [place] via EMS with hyperglycemia and altered mental status. The patient's relatives who lives out of state was talking to him on the phone and thought that he sounded unusual. EMS found the patient on the couch and the patient admits to sitting there for 3 days. He had urine and feces on him. His initial blood sugar was well over 400. BUN 65, Cr 9.5, Albumin 1.2, WBC 13, Hb 9.4, his anion gap is 22. His blood sugar was 484. Lactate 4. Alkaline phosphatase 583. He has end-stage renal disease on PD Over the past few weeks this is recurrent 4th admission and he seems to be failing to thrive He was supposed to f/u with [facility] again for balanitis with wounds over the glans but did not Alert and undering EEG prep. Difficult to understand but No apparent Pain/F/C/S/N/V/D Vital Sign Vital Signs Vital Signs Date Time Temp Pulse Resp B/P (MAP) Pulse Ox O2 Delivery O2 Flow Rate FiO2 10/12/19 08:00 Nasal Cannula 2.0 10/12/19 07:00 98.1 100 16 137/38 (71) 98 98.1 Physical Exam PHYSICAL EXAM GENERAL: Alert today. in bed - slow to respond but better than 10/11 HEENT: Normocephalic, atraumatic, anicteric. No thrush. NECK: No tenderness. Supple, no JVD, LUNGS: Clear. HEART: S1, S2. ABDOMEN: Soft. PD catheter in place, nontender, nondistended. GENITOURINARY: Penile swelling, min redness with eschar like lesion,, No purulence noted - No drainage today - still painful EXTREMITIES: no pedal edema SKIN: Dry skin. No cyanosis.superficial skin erythema on back pressure changes NEUROLOGIC: slow to respond but improved PSYCHIATRIC flat Labs Lab Laboratory Tests Test 10/11/19 13:00 10/11/19 16:17 10/11/19 21:08 10/12/19 05:40 Urine Collection Type U cath Urine Color Yellow Urine Clarity Clear Urine pH 7.5 Urine Specific [place] 1.015 Urine Protein 100 mg/dL (NEG-TRACE) Urine Glucose (UA) 500 mg/dL (NEG) Urine Ketones (Stick) Negative mg/dL (NEG) Urine Blood Negative (NEG) Urine Nitrite Negative (NEG) Urine Bilirubin Negative (NEG) Urine Urobilinogen Dipstick 0.2 mg/dL (0.2 mg/dL) Urine Leukocyte Esterase Negative (NEG) Urine RBC 0 /HPF (0-2) Urine WBC 1-4 /HPF (0-4) Urine Amorphous Sediment Present /HPF Urine Bacteria 0 /HPF (0-FEW) Glucose (Fingerstick) 147 mg/dL (70-99) 234 mg/dL (70-99) 288 mg/dL (70-99) Test 10/12/19 07:22 10/12/19 09:50 Glucose (Fingerstick) 302 mg/dL (70-99) Random Vancomycin Level 29.4 mcg/mL Micro Microbiology 10/08/19 Blood Culture - Preliminary, Resulted NO GROWTH AFTER 1 DAY Objective Assessment Fever ? ID vs med 1. Leukocytosis - stable 2. Acute Encephalopathy - some better - Ammonia nml. TSH pending MRI - neg and CT with acute on chronic sinuses 3. DKA 4. Balanitis chronic 5. Anemia of chronic disease. 6. End-stage renal disease, on peritoneal dialysis. 7. Peripheral vascular disease. Plan Plan of Care Began Vancomycin/Zosyn 10/10 but will d/c today with Fever and repeat Blood cults/Check Resp viral panel. Begin Micafungin/Zyvox and Meropenem today May need additional imaging Discont Fluconazole Need Urology f/u F/u labs and cults - neg so far Local wound care D/w family D/w nursing CORY NUNEZ MD Oct 12, 2019 11:35
[2019-10-12 11:40] LABS: BASO # 0.1 x10^3/uL (0.0-0.2); BASO % 1 % (0-3); EOS % 0 % (0-3); HEMATOCRIT 27.6 % (39.0-53.0); HEMOGLOBIN 8.3 g/dL (13.0-17.5); LYMPH # 1.2 x10^3/uL (1.0-4.8); LYMPH % 9 % (24-48); MEAN CORPUSCULAR HEMOGLOBIN 29 pg (25-35); MEAN CORPUSCULAR HGB CONC 30 g/dL (31-37); MEAN CORPUSCULAR VOLUME 97 fL (79-100); MONO # 0.8 x10^3/uL (0.0-1.1); MONO % 5 % (0-9); NEUT % 85 % (31-73); PLATELET COUNT 237 x10^3/uL (140-400); RED BLOOD COUNT 2.83 x10^6/uL (4.30-5.70); RED CELL DISTRIBUTION WIDTH 17.6 % (11.5-14.5); WHITE BLOOD COUNT 14.1 x10^3/uL (4.0-11.0)
[2019-10-12 12:04] LABS: ALBUMIN 0.8 g/dL (3.4-5.0); CREATININE 9.2 mg/dL (0.7-1.3); PHOSPHORUS 8.4 mg/dL (2.6-4.7); POTASSIUM 4.1 mmol/L (3.5-5.1)
[2019-10-12] MEDS: MICAFUNGIN 100 MG in IV DEXTROSE 5% 100ML 100 ML IV SCH (12:15)
[2019-10-12] MEDS: MEROPENEM 500 MG in IV NORMAL SALINE 50ML 50 ML IV SCH ×2 (13:36→23:03)
--- NOTE | 2019-10-12 14:49 | EEG ---
DATE OF SERVICE: 10/12/2019 OBJECTIVE: The patient is a 53-year-old male with altered mental status. DESCRIPTION: This is a digital study. Electrodes are placed according to the international 10-20 system. Bipolar and referential montages are available. Activation procedures typically include hyperventilation and intermittent photic stimulation. INTERPRETATION: The waking background consists of 7-8 Hz, 20-50 microvolt activity, symmetrically distributed over parietooccipital regions. Sleep is not achieved. Hyperventilation is poorly performed. Intermittent photic stimulation is noncontributory. All computer and the radiology technician -identified abnormalities are reviewed and none are epileptic. IMPRESSION: This electroencephalogram with the patient awake only is abnormal because of a mild, diffuse disturbance of cerebral activity consistent with any of a variety of toxic or metabolic encephalopathies. There is no focal, paroxysmal, or epileptiform activity. Thank you for letting us help with the patient's care. DUANE RAY MD DR: NADIR/ruel JOB#: [id number] / [id number]
[2019-10-12 15:55] VITALS: BP 105/54
[2019-10-12] MEDS: AA 4.25 %/CALCIUM/LYTES/D5W 1,000 ML IV SCH (17:12)
--- NOTE | 2019-10-12 17:29 | RAD ---
Examination: UPPER EXT ARTERIAL LEFT History: AV fistula but no bruit or thrill detected Comparison/Correlation: None Findings: Duplex ultrasound examination the proximal left upper extremity AV fistula was performed. Left proximal subclavian arterial peak systolic velocity is 131 cm/s. Distal subclavian artery oblique systolic velocity is 108 cm/s. Left axillary arterial peak systolic velocity of 43 cm/s noted. Left brachial artery proximally has a peak systolic velocity of 82 cm/s. Midportion of the brachial artery has peak systolic velocity 104 cm/s. Distal brachial artery has a peak systolic velocity of 81 cm/s. Radial artery has peak systolic velocity of 29 cm/s. Distal radial arterial peak systolic velocity of 17 cm/s noted. Proximal ulnar arterial peak velocity of 36 cm/s. Distal ulnar arterial peak systolic velocity of 80 cm/s noted. Distal brachiocephalic fistula is occluded. Thrombus is seen within the cephalic vein at the fistula outflow region. Triphasic and biphasic arterial spectral waveforms are identified involving the left upper extremity. Impression: Occlusion of the distal brachiocephalic fistula. Thrombus within the cephalic venous portion of the fistula outflow region. Electronically signed by: Sabino Carcamo MD (10/12/2019 5:26 PM) [facility]
[2019-10-12 19:45] VITALS: BP 136/34
[2019-10-12] MEDS: TAMSULOSIN 0.4 MG CAP.ER.24H. PO SCH (21:00)
[2019-10-12] MEDS: ATORVASTATIN CALCIUM 40 MG TABLET. PO SCH (21:00)
[2019-10-12] MEDS: LOSARTAN POTASSIUM 50 MG TABLET. PO SCH (21:00)
[2019-10-12] MEDS: INSULIN GLARGINE SYRINGE. SQ SCH (22:32)
[2019-10-12 23:29] VITALS: BP 113/39
[2019-10-13 03:08] VITALS: BP 152/62
[2019-10-13] MEDS: MEROPENEM 500 MG in IV NORMAL SALINE 50ML 50 ML IV SCH (06:00)
[2019-10-13] MEDS: HEPARIN for SUB-Q USE 5,000 UNIT/ML VIAL. SQ SCH ×3 (06:01→23:19)
[2019-10-13] MEDS: AA 4.25 %/CALCIUM/LYTES/D5W 1,000 ML IV SCH ×2 (06:40→17:30)
[2019-10-13 07:00] VITALS: BP 136/75
[2019-10-13] MEDS: INSULIN LISPRO 300 UNITS/3 ML VIAL. SQ SCH ×6 (07:30→21:00)
--- NOTE | 2019-10-13 07:39 | PDOC ---
Infectious Disease Note Subjective Subjective Pt well known to us from recent admissions Just dc Oct 03 with Augment/doxy/Fluconazole - he cannot tell me if he was taking these at home 53 yo male brought in again for mental status change and weakness to [facility] via EMS with hyperglycemia and altered mental status. The patient's relatives who lives out of state was talking to him on the phone and thought that he sounded unusual. EMS found the patient on the couch and the patient admits to sitting there for 3 days. He had urine and feces on him. His initial blood sugar was well over 400. BUN 65, Cr 9.5, Albumin 1.2, WBC 13, Hb 9.4, his anion gap is 22. His blood sugar was 484. Lactate 4. Alkaline phosphatase 583. He has end-stage renal disease on PD Over the past few weeks this is recurrent 4th admission and he seems to be failing to thrive He was supposed to f/u with [facility] again for balanitis with wounds over the glans but did not Alert and wanting to go home. No Pain/F/C/S/N/V/D/SOA/rash ROS ROS o/w neg Vital Sign Vital Signs Vital Signs Date Time Temp Pulse Resp B/P (MAP) Pulse Ox O2 Delivery O2 Flow Rate FiO2 10/13/19 03:08 97.7 84 18 152/62 (92) 91 Nasal Cannula 2.0 97.7 Physical Exam PHYSICAL EXAM GENERAL: Alert today. in bed - NAD HEENT: Normocephalic, atraumatic, anicteric. No thrush. NECK: No tenderness. Supple, no JVD, LUNGS: Clear. HEART: S1, S2. ABDOMEN: Soft. PD catheter in place, nontender, nondistended. GENITOURINARY: Penile swelling, min redness with eschar like lesion,, No purulence noted - No drainage today - still painful EXTREMITIES: no pedal edema SKIN: Dry skin. No cyanosis.superficial skin erythema on back pressure changes NEUROLOGIC:Answering questions well PSYCHIATRIC flat Labs Lab Laboratory Tests Test 10/12/19 09:50 10/12/19 11:10 10/12/19 12:03 10/12/19 17:09 Random Vancomycin Level 29.4 mcg/mL White Blood Count 14.1 x10^3/uL (4.0-11.0) Red Blood Count 2.83 x10^6/uL (4.30-5.70) Hemoglobin 8.3 g/dL (13.0-17.5) Hematocrit 27.6 % (39.0-53.0) Mean Corpuscular Volume 97 fL (79-100) Mean Corpuscular Hemoglobin 29 pg (25-35) Mean Corpuscular Hemoglobin Concent 30 g/dL (31-37) Red Cell Distribution Width 17.6 % (11.5-14.5) Platelet Count 237 x10^3/uL (140-400) Neutrophils (%) (Auto) 85 % (31-73) Lymphocytes (%) (Auto) 9 % (24-48) Monocytes (%) (Auto) 5 % (0-9) Eosinophils (%) (Auto) 0 % (0-3) Basophils (%) (Auto) 1 % (0-3) Neutrophils # (Auto) 12.0 x10^3/uL (1.8-7.7) Lymphocytes # (Auto) 1.2 x10^3/uL (1.0-4.8) Monocytes # (Auto) 0.8 x10^3/uL (0.0-1.1) Eosinophils # (Auto) 0.0 x10^3/uL (0.0-0.7) Basophils # (Auto) 0.1 x10^3/uL (0.0-0.2) Erythrocyte Sedimentation Rate > 130 (0-15) Sodium Level 139 mmol/L (136-145) Potassium Level 4.1 mmol/L (3.5-5.1) Chloride Level 99 mmol/L (98-107) Carbon Dioxide Level 26 mmol/L (21-32) Anion Gap 14 (6-14) Blood Urea Nitrogen 62 mg/dL (8-26) Creatinine 9.2 mg/dL (0.7-1.3) Estimated GFR (Cockcroft-Gault) 6.0 Glucose Level 247 mg/dL (70-99) Calcium Level 8.0 mg/dL (8.5-10.1) Phosphorus Level 8.4 mg/dL (2.6-4.7) Gamma Glutamyl Transpeptidase 248 U/L (10-85) Albumin 0.8 g/dL (3.4-5.0) Vitamin B12 Level 686 pg/mL (247-911) Glucose (Fingerstick) 209 mg/dL (70-99) 132 mg/dL (70-99) Test 10/12/19 20:51 10/13/19 07:35 Glucose (Fingerstick) 236 mg/dL (70-99) 439 mg/dL (70-99) Micro Art U/S 10/12 Impression: Occlusion of the distal brachiocephalic fistula. Thrombus within the cephalic venous portion of the fistula outflow region. Microbiology 10/08/19 Blood Culture - Preliminary, Resulted NO GROWTH AFTER 1 DAY Objective Assessment Fever ? ID vs med - better 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 Leukocytosis - stable 2. Acute Encephalopathy - some better - Ammonia nml. TSH pending MRI - neg and CT with acute on chronic sinuses 3. DKA 4. Balanitis chronic 5. Anemia of chronic disease. 6. End-stage renal disease, on peritoneal dialysis. 7. Peripheral vascular disease. Plan Plan of Care Began Vancomycin/Zosyn 10/10 but will d/c'd with Fever and repeated Blood cults/Check Resp viral panel. Begin Micafungin/Zyvox and Meropenem today 10/12 May need additional imaging Need Urology f/u F/u labs and cults - neg so far Local wound care D/w nursing CORY NUNEZ MD Oct 13, 2019 07:39
[2019-10-13] MEDS: CALCIUM ACETATE 667 MG CAPSULE PO SCH ×3 (08:00→17:00)
[2019-10-13] MEDS: ASPIRIN ENTERIC COATED 81 MG TABLET.DR. PO SCH (08:00)
--- NOTE | 2019-10-13 08:24 | PDOC ---
PROGRESS NOTES Chief Complaint Chief Complaint A/P: Acute encephalopathy - metabolic 2/2 DKA and toxic 2/2 likely infectious etiology. Still somewhat confused DKA, type 2 - off insulin GTT. will repeat BMP, able to eat, lantus tonight. Elevated alkaline phosphatase level - will monitor, no biliary problems previously Lactic acidosis - likely due to diabetes mellitus. Will trend Penile cellulitis - present on admission, likely from failure to f/u outpatient - Doxy and augmentin with fluconazole previously. Will culture and consult ID ESRD on HD transitioning to PD prior to his admission - tolerating well. Will consult nephrology Sepsis - from penile cellulitis as etiology, f/u cultures. Previously with coag negative staph on PD culture. F/u repeat culture HTN - cont meds DM type 2 insulin requiring - now hyperglycemic, previously with hypoglycemic event - hypoglycemia protocol. Cont insulin basal bolus plus once out of DKA Severe protein calorie malnutrition - unclear etiology, albumin 1.2, definitely has inconsistent PO intake. Food Science Technician to see Anemia - of chronic renal disease Penile cellulitis, could have a component of vasculature involvement. U/S shows no abscess - painless ulcer concerning. Syphilis testing negative previously. Wound care to see Gait instability - needs further PT Anemia - of chronic renal disease Hyperphosphatemia - likely related to phos binder compliance difficulties. Will add phos binder, d/w nephrology FEN - Renal ADA PPX - Heparin TID FULL CODE Dispo - inpatient likely for at least 2 midnights History of Present Illness History of Present Illness Mr Easton is a 53yo M w/ PMHx hypertension, diabetes, and end-stage renal disease previously on hemodialysis who transitioned to peritoneal dialysis mid 2018. Presented to [facility] via EMS with hyperglycemia and altered mental status. The patient's relatives who lives out of state was talking to him on the phone and thought that he sounded unusual. EMS found the patient on the couch and the patient admits to sitting there for 3 days. He had urine and feces on him. His initial blood sugar was well over 400. He was alert to himself only at first. He was becoming more alert during transport. Patient denies any falls. He denies drinking alcohol though his family is concerned he has been drinking. ETOH level not detectable. The patient is a long-standing diabetic. He is on dialysis. He says that he used peritoneal dialysis last night. He does not have any additional specific complaints. He denies any falls or trauma. CXR clear BUN 65, Cr 9.5, Albumin 1.2, WBC 13, Hb 9.4, his anion gap is 22. His blood sugar was 484. Lactate 4. Alkaline phosphatase 583. Called for admission for further treatment of his confusion and labs abnormalities. No nephrology services at [facility] so transferred to [facility]. 10/09: Gap closed, eating. Still confused. His brother from [place], [place] has called and noted that he has called adult protective services on Mr Easton's . Patient does not want to discuss this with me. He is amenable to rehab referral and outpatient referral to urology as well. 10/10: WBC still up. Denies CP. Mild SOB. Penile pain and bilateral hand pain as well as abdominal pain. He is still confused today. 10/11: States he ate breakfast. No abdominal pain or penile pain today. Still with some cough and SOB, near his baseline. Very weak. Ammonia negative. MRI negative for strok. 3D TECHNOLOGIST evaluated, grossly aspirating, placed NPO. D/w Robin, his DPOA to consult GI for PEG consideration 10/12: Fever 102F, mentally very slow. CT head negative. Aspirating, consulted GI to consider PEG, would need to remove PD cath and convert to HD. His LUE fistula examined - Occlusion distal brachiocephalic fistula with thrombus in cephalic venous portion of the fistula outflow region. D/w family may need feeding tube and convert to HD. Still very slow mentally. He states he feels fine. Barely able to move. PPN at 80cc/hr. Glucose in 400s Vitals Vitals Vital Signs Date Time Temp Pulse Resp B/P (MAP) Pulse Ox O2 Delivery O2 Flow Rate FiO2 10/13/19 07:00 97.9 91 18 136/75 (95) 94 Nasal Cannula 2.0 97.9 Physical Exam Physical Exam GENERAL: Alert today. in bed - NAD HEENT: Normocephalic, atraumatic, anicteric. No thrush. NECK: No tenderness. Supple, no JVD, LUNGS: Clear. HEART: S1, S2. ABDOMEN: Soft. PD catheter in place, nontender, nondistended. GENITOURINARY: Penile swelling, min redness with eschar like lesion,, No purulence noted - No drainage today - still painful EXTREMITIES: no pedal edema SKIN: Dry skin. No cyanosis.superficial skin erythema on back pressure changes NEUROLOGIC:Answering questions well PSYCHIATRIC flat General: Alert, Cooperative, No acute distress Lungs: Clear, Other Abdomen: Normal bowel sounds, Soft, No tenderness, No hepatosplenomegaly, No masses, Other (PD catheter) Extremities: No clubbing, No cyanosis, Normal pulses, No tenderness/swelling Skin: Other (Penile ulcer, unable to assess glans, appears to have phimosis) Labs LABS Laboratory Tests Test 10/12/19 09:50 10/12/19 11:10 10/12/19 12:03 10/12/19 17:09 Random Vancomycin Level 29.4 mcg/mL White Blood Count 14.1 x10^3/uL (4.0-11.0) Red Blood Count 2.83 x10^6/uL (4.30-5.70) Hemoglobin 8.3 g/dL (13.0-17.5) Hematocrit 27.6 % (39.0-53.0) Mean Corpuscular Volume 97 fL (79-100) Mean Corpuscular Hemoglobin 29 pg (25-35) Mean Corpuscular Hemoglobin Concent 30 g/dL (31-37) Red Cell Distribution Width 17.6 % (11.5-14.5) Platelet Count 237 x10^3/uL (140-400) Neutrophils (%) (Auto) 85 % (31-73) Lymphocytes (%) (Auto) 9 % (24-48) Monocytes (%) (Auto) 5 % (0-9) Eosinophils (%) (Auto) 0 % (0-3) Basophils (%) (Auto) 1 % (0-3) Neutrophils # (Auto) 12.0 x10^3/uL (1.8-7.7) Lymphocytes # (Auto) 1.2 x10^3/uL (1.0-4.8) Monocytes # (Auto) 0.8 x10^3/uL (0.0-1.1) Eosinophils # (Auto) 0.0 x10^3/uL (0.0-0.7) Basophils # (Auto) 0.1 x10^3/uL (0.0-0.2) Erythrocyte Sedimentation Rate > 130 (0-15) Sodium Level 139 mmol/L (136-145) Potassium Level 4.1 mmol/L (3.5-5.1) Chloride Level 99 mmol/L (98-107) Carbon Dioxide Level 26 mmol/L (21-32) Anion Gap 14 (6-14) Blood Urea Nitrogen 62 mg/dL (8-26) Creatinine 9.2 mg/dL (0.7-1.3) Estimated GFR (Cockcroft-Gault) 6.0 Glucose Level 247 mg/dL (70-99) Calcium Level 8.0 mg/dL (8.5-10.1) Phosphorus Level 8.4 mg/dL (2.6-4.7) Gamma Glutamyl Transpeptidase 248 U/L (10-85) Albumin 0.8 g/dL (3.4-5.0) Vitamin B12 Level 686 pg/mL (247-911) Glucose (Fingerstick) 209 mg/dL (70-99) 132 mg/dL (70-99) Test 10/12/19 20:51 10/13/19 07:35 Glucose (Fingerstick) 236 mg/dL (70-99) 439 mg/dL (70-99) Comment Review of Relevant I have reviewed the following items alex (where applicable) has been applied. Labs Laboratory Tests Test 10/11/19 08:50 10/11/19 10:47 10/11/19 13:00 10/11/19 16:17 White Blood Count 14.9 x10^3/uL (4.0-11.0) Red Blood Count 3.02 x10^6/uL (4.30-5.70) Hemoglobin 8.8 g/dL (13.0-17.5) Hematocrit 28.9 % (39.0-53.0) Mean Corpuscular Volume 96 fL (79-100) Mean Corpuscular Hemoglobin 29 pg (25-35) Mean Corpuscular Hemoglobin Concent 30 g/dL (31-37) Red Cell Distribution Width 18.4 % (11.5-14.5) Platelet Count 241 x10^3/uL (140-400) Neutrophils (%) (Auto) 87 % (31-73) Lymphocytes (%) (Auto) 6 % (24-48) Monocytes (%) (Auto) 7 % (0-9) Eosinophils (%) (Auto) 0 % (0-3) Basophils (%) (Auto) 1 % (0-3) Neutrophils # (Auto) 13.0 x10^3/uL (1.8-7.7) Lymphocytes # (Auto) 0.8 x10^3/uL (1.0-4.8) Monocytes # (Auto) 1.0 x10^3/uL (0.0-1.1) Eosinophils # (Auto) 0.0 x10^3/uL (0.0-0.7) Basophils # (Auto) 0.1 x10^3/uL (0.0-0.2) Segmented Neutrophils % 92 % (35-66) Lymphocytes % 6 % (24-48) Monocytes % 2 % (0-10) Platelet Estimate Adequate (ADEQUATE) Anisocytosis Slight Sodium Level 138 mmol/L (136-145) Potassium Level 4.4 mmol/L (3.5-5.1) Chloride Level 100 mmol/L (98-107) Carbon Dioxide Level 26 mmol/L (21-32) Anion Gap 12 (6-14) Blood Urea Nitrogen 63 mg/dL (8-26) Creatinine 8.9 mg/dL (0.7-1.3) Estimated GFR (Cockcroft-Gault) 6.2 Glucose Level 273 mg/dL (70-99) Calcium Level 8.5 mg/dL (8.5-10.1) Phosphorus Level 8.8 mg/dL (2.6-4.7) Total Bilirubin 0.4 mg/dL (0.2-1.0) Direct Bilirubin 0.1 mg/dL (0.0-0.2) Aspartate Amino Transf (AST/SGOT) 40 U/L (15-37) Alanine Aminotransferase (ALT/SGPT) 8 U/L (16-63) Alkaline Phosphatase 388 U/L (46-116) Ammonia < 10 mcmol/L (11-34) Total Protein 4.8 g/dL (6.4-8.2) Albumin 0.8 g/dL (3.4-5.0) Thyroid Stimulating Hormone (TSH) 5.054 uIU/mL (0.358-3.74) Glucose (Fingerstick) 187 mg/dL (70-99) 147 mg/dL (70-99) Urine Collection Type U cath Urine Color Yellow Urine Clarity Clear Urine pH 7.5 Urine Specific [place] 1.015 Urine Protein 100 mg/dL (NEG-TRACE) Urine Glucose (UA) 500 mg/dL (NEG) Urine Ketones (Stick) Negative mg/dL (NEG) Urine Blood Negative (NEG) Urine Nitrite Negative (NEG) Urine Bilirubin Negative (NEG) Urine Urobilinogen Dipstick 0.2 mg/dL (0.2 mg/dL) Urine Leukocyte Esterase Negative (NEG) Urine RBC 0 /HPF (0-2) Urine WBC 1-4 /HPF (0-4) Urine Amorphous Sediment Present /HPF Urine Bacteria 0 /HPF (0-FEW) Test 10/11/19 21:08 10/12/19 05:40 10/12/19 07:22 10/12/19 09:50 Glucose (Fingerstick) 234 mg/dL (70-99) 288 mg/dL (70-99) 302 mg/dL (70-99) Random Vancomycin Level 29.4 mcg/mL Test 10/12/19 11:10 10/12/19 12:03 10/12/19 17:09 10/12/19 20:51 White Blood Count 14.1 x10^3/uL (4.0-11.0) Red Blood Count 2.83 x10^6/uL (4.30-5.70) Hemoglobin 8.3 g/dL (13.0-17.5) Hematocrit 27.6 % (39.0-53.0) Mean Corpuscular Volume 97 fL (79-100) Mean Corpuscular Hemoglobin 29 pg (25-35) Mean Corpuscular Hemoglobin Concent 30 g/dL (31-37) Red Cell Distribution Width 17.6 % (11.5-14.5) Platelet Count 237 x10^3/uL (140-400) Neutrophils (%) (Auto) 85 % (31-73) Lymphocytes (%) (Auto) 9 % (24-48) Monocytes (%) (Auto) 5 % (0-9) Eosinophils (%) (Auto) 0 % (0-3) Basophils (%) (Auto) 1 % (0-3) Neutrophils # (Auto) 12.0 x10^3/uL (1.8-7.7) Lymphocytes # (Auto) 1.2 x10^3/uL (1.0-4.8) Monocytes # (Auto) 0.8 x10^3/uL (0.0-1.1) Eosinophils # (Auto) 0.0 x10^3/uL (0.0-0.7) Basophils # (Auto) 0.1 x10^3/uL (0.0-0.2) Erythrocyte Sedimentation Rate > 130 (0-15) Sodium Level 139 mmol/L (136-145) Potassium Level 4.1 mmol/L (3.5-5.1) Chloride Level 99 mmol/L (98-107) Carbon Dioxide Level 26 mmol/L (21-32) Anion Gap 14 (6-14) Blood Urea Nitrogen 62 mg/dL (8-26) Creatinine 9.2 mg/dL (0.7-1.3) Estimated GFR (Cockcroft-Gault) 6.0 Glucose Level 247 mg/dL (70-99) Calcium Level 8.0 mg/dL (8.5-10.1) Phosphorus Level 8.4 mg/dL (2.6-4.7) Gamma Glutamyl Transpeptidase 248 U/L (10-85) Albumin 0.8 g/dL (3.4-5.0) Vitamin B12 Level 686 pg/mL (247-911) Glucose (Fingerstick) 209 mg/dL (70-99) 132 mg/dL (70-99) 236 mg/dL (70-99) Test 10/13/19 07:35 Glucose (Fingerstick) 439 mg/dL (70-99) Laboratory Tests Test 10/12/19 09:50 10/12/19 11:10 10/12/19 12:03 10/12/19 17:09 Random Vancomycin Level 29.4 mcg/mL White Blood Count 14.1 x10^3/uL (4.0-11.0) Red Blood Count 2.83 x10^6/uL (4.30-5.70) Hemoglobin 8.3 g/dL (13.0-17.5) Hematocrit 27.6 % (39.0-53.0) Mean Corpuscular Volume 97 fL (79-100) Mean Corpuscular Hemoglobin 29 pg (25-35) Mean Corpuscular Hemoglobin Concent 30 g/dL (31-37) Red Cell Distribution Width 17.6 % (11.5-14.5) Platelet Count 237 x10^3/uL (140-400) Neutrophils (%) (Auto) 85 % (31-73) Lymphocytes (%) (Auto) 9 % (24-48) Monocytes (%) (Auto) 5 % (0-9) Eosinophils (%) (Auto) 0 % (0-3) Basophils (%) (Auto) 1 % (0-3) Neutrophils # (Auto) 12.0 x10^3/uL (1.8-7.7) Lymphocytes # (Auto) 1.2 x10^3/uL (1.0-4.8) Monocytes # (Auto) 0.8 x10^3/uL (0.0-1.1) Eosinophils # (Auto) 0.0 x10^3/uL (0.0-0.7) Basophils # (Auto) 0.1 x10^3/uL (0.0-0.2) Erythrocyte Sedimentation Rate > 130 (0-15) Sodium Level 139 mmol/L (136-145) Potassium Level 4.1 mmol/L (3.5-5.1) Chloride Level 99 mmol/L (98-107) Carbon Dioxide Level 26 mmol/L (21-32) Anion Gap 14 (6-14) Blood Urea Nitrogen 62 mg/dL (8-26) Creatinine 9.2 mg/dL (0.7-1.3) Estimated GFR (Cockcroft-Gault) 6.0 Glucose Level 247 mg/dL (70-99) Calcium Level 8.0 mg/dL (8.5-10.1) Phosphorus Level 8.4 mg/dL (2.6-4.7) Gamma Glutamyl Transpeptidase 248 U/L (10-85) Albumin 0.8 g/dL (3.4-5.0) Vitamin B12 Level 686 pg/mL (247-911) Glucose (Fingerstick) 209 mg/dL (70-99) 132 mg/dL (70-99) Test 10/12/19 20:51 10/13/19 07:35 Glucose (Fingerstick) 236 mg/dL (70-99) 439 mg/dL (70-99) Microbiology 10/08/19 Blood Culture - Preliminary, Resulted NO GROWTH AFTER 4 DAYS 10/08/19 Aerobic Culture - Final, Complete 1/20/20 Aerobic Culture Result 1 (HEATHER) - Final, Complete 10/08/19 Gram Stain - Final, Complete 10/08/19 Gram Stain Result 1 (HEATHER) - Final, Complete 10/08/19 Gram Stain Result 2 (HEATHER) - Final, Complete Medications Current Medications Ondansetron HCl (Zofran) 4 mg PRN Q4HRS PRN IV NAUSEA/VOMITING; Start 10/08/19 at 16:30 Acetaminophen (Tylenol) 650 mg PRN Q4HRS PRN PO TEMP OVER 100.4F OR MILD PAIN; Start 10/08/19 at 16:30 Docusate Sodium (Colace) 100 mg PRN BID PRN PO CONSTIPATION; Start 10/08/19 at 16:30 Insulin Human Lispro (HumaLOG) 0-7 UNITS TIDACHC SQ Last administered on 10/12/19at 22:01; Start 10/08/19 at 21:00 Dextrose (Dextrose 50%-Water Syringe) 12.5 gm PRN Q15MIN PRN IV SEE COMMENTS Last administered on 10/08/19at 21:05; Start 10/08/19 at 17:00 Dextrose (Iv Dextrose 5%) 250 ml PRN Q15MIN PRN IV SEE COMMENTS; Start 10/08/19 at 17:00 Aspirin (Ecotrin) 81 mg DAILYWBKFT PO Last administered on 10/10/19at 10:10; Start 10/09/19 at 08:00 Atorvastatin Calcium (Lipitor) 40 mg HS PO Last administered on 10/09/19at 21:30; Start 10/08/19 at 21:00 Furosemide (Lasix) 80 mg [id number] PO Last administered on 10/10/19at 16:15; Start 10/08/19 at 18:00 Lactobacillus Rhamnosus (Culturelle) 1 cap BID PO Last administered on 10/10/19at 10:09; Start 10/08/19 at 21:00 Montelukast Sodium (Singulair) 10 mg HS PRN PO ALLERGIES; Start 10/08/19 at 17:00 Ondansetron HCl (Zofran Odt) 4 mg PRN Q6HRS PRN PO NAUSEA; Start 10/08/19 at 17:00 Tamsulosin HCl (Flomax) 0.4 mg HS PO Last administered on 10/09/19at 21:30; Start 10/08/19 at 21:00 Tramadol HCl (Ultram) 50 mg PRN Q6HRS PRN PO MODERATE PAIN; Start 10/08/19 at 17:00; Stop 10/12/19 at 11:56; Status DC Insulin Glargine (Lantus Syringe) 10 unit QHS SQ Last administered on 10/12/19at 22:32; Start 10/08/19 at 21:00 Losartan Potassium (Cozaar) 100 mg HS PO Last administered on 10/09/19at 21:30; Start 10/08/19 at 21:00 Pantoprazole Sodium (Protonix) 40 mg DAILYAC PO Last administered on 10/10/19at 10:10; Start 10/09/19 at 07:30; Stop 10/12/19 at 09:54; Status DC Sodium Chloride 500 ml @ 500 mls/hr 1X ONCE IV Last administered on 10/08/19at 20:00; Start 10/08/19 at 20:00; Stop 10/08/19 at 20:59; Status DC Calcium Acetate (Phoslo) 1,334 mg TIDWMEALS PO Last administered on 10/10/19at 17:35; Start 10/08/19 at 20:00 Vitamin A/Vitamin D (Vitamin A & D Ointment) 1 lucero PRN Q1HR PRN TP SKIN PROTECTION; Start 10/09/19 at 09:00 Doxycycline Hyclate (Vibra-Tab) 100 mg BID PO Last administered on 10/10/19at 10:08; Start 10/09/19 at 11:00; Stop 10/10/19 at 10:21; Status DC Fluconazole (Diflucan) 100 mg DAILY PO Last administered on 10/10/19at 10:08; Start 10/09/19 at 10:30; Stop 10/12/19 at 11:57; Status DC Amoxicillin/ Clavulanate Potassium (Augmentin 500/ 125mg) 1 tab DAILY PO Last administered on 10/10/19at 10:08; Start 10/09/19 at 10:30; Stop 10/10/19 at 10:21; Status DC Vancomycin HCl (Vanco Per Pharmacy) 1 each PRN DAILY PRN MC SEE COMMENTS Last administered on 10/11/19at 15:08; Start 10/10/19 at 10:30; Stop 10/12/19 at 11:56; Status DC Piperacillin Sod/ Tazobactam Sod 2.25 gm/Sodium Chloride 50 ml @ 100 mls/hr Q8HRS IV Last administered on 10/11/19at 22:06; Start 10/10/19 at 11:00; Stop 10/12/19 at 11:56; Status DC Vancomycin HCl 1.5 gm/Sodium Chloride 500 ml @ 250 mls/hr 1X ONCE IV Last administered on 10/10/19at 16:14; Start 10/10/19 at 11:00; Stop 10/10/19 at 12:59; Status DC Vancomycin HCl (Vancomycin Random Level) 1 each 1X ONCE MC Last administered on 10/12/19at 05:00; Start 10/12/19 at 05:00; Stop 10/12/19 at 05:01; Status DC Acetaminophen (Tylenol Supp) 650 mg PRN Q6HRS PRN FL MILD PAIN / TEMP; Start 10/12/19 at 06:00 Pantoprazole Sodium (PROTONIX VIAL for IV PUSH) 40 mg DAILYAC IVP Last administered on 10/12/19at 11:17; Start 10/12/19 at 10:00 Meropenem 500 mg/ Sodium Chloride 50 ml @ 100 mls/hr Q8HRS IV Last administered on 10/13/19at 06:00; Start 10/12/19 at 13:00 Micafungin Sodium 100 mg/Dextrose 100 ml @ 100 mls/hr Q24H IV Last administered on 10/12/19at 12:15; Start 10/12/19 at 12:00 Linezolid/Dextrose 300 ml @ 300 mls/hr Q12HR IV Last administered on 10/12/19at 21:52; Start 10/12/19 at 12:00 Amino Acids/ Electrolytes/ Dextrose 1,000 ml @ 80 mls/hr [id number] IV Last administered on 10/13/19at 06:40; Start 10/12/19 at 16:30 Heparin Sodium (Porcine) (Heparin Sodium) 5,000 unit Q8HRS SQ Last administered on 10/13/19at 06:01; Start 10/13/19 at 06:00 Active Scripts Active Tramadol Hcl 50 Mg Tablet 50 Mg PO PRN Q6HRS PRN 3 Days Culturelle (Lactobacillus Rhamnosus Gg) 1 Each Cap.sprink 1 Cap PO BID 7 Days [Fluconazole] 100 MG Tablet 100 Mg PO DAILY 7 Days Doxycycline Hyclate 100 Mg Tablet 100 Mg PO BID 7 Days Amox Tr-K Clv 500-125 Mg Tab (Amoxicillin/Potassium Clav) 1 Each Tablet 1 Tab PO DAILY 7 Days Aspirin Ec (Aspirin) 81 Mg Tablet.dr 81 Mg PO DAILYWBKFT Reported Glyburide 5 Mg Tablet 5 Mg PO DAILY Lantus Solostar (Insulin Glargine,Hum.rec.anlog) 100 Unit/1 Ml Insuln.pen 10 Unit SQ QHS Humalog (Insulin Lispro) 100 Unit/1 Ml Cartridge 100 Unit SQ TIDWMEALS Omeprazole 20 Mg Tablet.dr 20 Mg PO DAILY Calcitriol 0.5 Mcg Capsule 0.5 Mcg PO DAILY Furosemide 80 Mg Tablet 80 Mg PO BID Glucagen (Glucagon,Human Recombinant) 1 Mg Vial 1 PRN PRN Tamsulosin Hcl 0.4 Mg Cap.er.24h 1 Cap PO HS Montelukast Sodium Tablet (Montelukast Sodium) 10 Mg Tablet 1 Tab PO HS PRN Ondansetron Odt (Ondansetron) 4 Mg Tab.rapdis 1 Tab PO PRN Q6-8HRS PRN Lantus Solostar (Insulin Glargine,Hum.rec.anlog) 100 Unit/1 Ml Insuln.pen 11 Unit SQ QHS Humalog (Insulin Lispro) 100 Unit/1 Ml Cartridge 22 Unit SQ TIDWMEALS Cozaar (Losartan Potassium) 100 Mg Tablet 100 Mg PO HS Carvedilol 25 Mg Tablet 25 Mg PO BIDWMEALS Atorvastatin Calcium 40 Mg Tablet 40 Mg PO HS Amlodipine Besylate 10 Mg Tablet 10 Mg PO DAILY Vitals/I & O Vital Sign - Last 24 Hours 10/12/19 10/12/19 10/12/19 10/12/19 11:00 15:55 19:45 20:00 Temp 97.3 97.5 97.7 97.3 97.5 97.7 Pulse 100 77 90 Resp 16 16 18 B/P (MAP) 91/65 (74) 105/54 (71) 136/34 (68) Pulse Ox 94 98 99 O2 Delivery Nasal Cannula Nasal Cannula Nasal Cannula Nasal Cannula O2 Flow Rate 2.0 2.0 2.0 2.0 10/12/19 10/13/19 10/13/19 23:29 03:08 07:00 Temp 97.8 97.7 97.9 97.8 97.7 97.9 Pulse 92 84 91 Resp 18 18 18 B/P (MAP) 113/39 (63) 152/62 (92) 136/75 (95) Pulse Ox 91 91 94 O2 Delivery Nasal Cannula Nasal Cannula Nasal Cannula O2 Flow Rate 2.0 2.0 2.0 Nutrition Consultation Dietary Evaluation: Recommendations by RD: Dietary education by RD, PPN/TPN Comments: REC PPN or TF for nutrition REC mvi and vit c per wound protocal due to multiple skin breakdown areas - See wound assessment when able Expected Outcomes/Goals: to meet >50% est nutr needs- goal onoing Interpretation of weight loss: >5% in 1 month Malnutrition Findings: Food and Nutrition Intake (Sev: <50% est energy req 5days Body Fat Depletion (Non Severe: Mild Depletion Weight Status: Underweight JOSE SOLANO MD Oct 13, 2019 08:24
[2019-10-13] MEDS: LACTOBACILLUS RHAMNOSUS GG 1 CAPSULE. PO SCH ×2 (09:00→20:54)
[2019-10-13] MEDS: FUROSEMIDE 80 MG TABLET. PO SCH ×2 (09:00→15:28)
[2019-10-13] MEDS: PANTOPRAZOLE IV PUSH 40 MG VIAL. IVP SCH (09:12)
[2019-10-13] MEDS ORDERED: INSULIN LISPRO 300 UNITS/3 ML VIAL. SQ ONE (09:30)
[2019-10-13 10:44] VITALS: BP 122/55
[2019-10-13] MEDS: MICAFUNGIN 100 MG in IV DEXTROSE 5% 100ML 100 ML IV SCH (12:09)
--- NOTE | 2019-10-13 14:06 | PDOC ---
SUBJECTIVE ROS stable, sleeping comfortably, No concerns voiced by RN OBJECTIVE Vital Signs Vital Signs Date Time Temp Pulse Resp B/P (MAP) Pulse Ox O2 Delivery O2 Flow Rate FiO2 10/13/19 10:44 98.1 90 18 122/55 (77) 96 Nasal Cannula 2.0 98.1 PHYSICAL EXAM Physical Exam General: No acute distress, HEENT: OM moist Neck Supple Lungs: Clear to auscultation, Normal air movement Heart: S1S2, RRR, no thrills, no rubs, no gallops, no murmurs Cardiovascular: S1, S2 Abdomen: Normal bowel sounds, Soft, No tenderness, PD cath in place, no e/ Exit site infection Extremities: left av fistula , no bruit or thrill Skin: No rashes, No quinteros DIAGNOSIS/ASSESSMENT Assessment & Plan ESRD- Dr Riggs's pt at 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- On phoslo Phos improving HTN- low hold losartan for low BP Severe protein calorie malnutrition albumin 1.1, COMMENT/RELEVANT DATA Meds Current Medications Medications (Trade) Dose Ordered Sig/Rosalino Start Time Stop Time Status Last Admin Dose Admin Acetaminophen (Tylenol Supp) 650 mg PRN Q6HRS PRN 10/12/19 06:00 Acetaminophen (Tylenol) 650 mg PRN Q4HRS PRN 10/08/19 16:30 Amino Acids/ Electrolytes/ Dextrose 1,000 ml @ 80 mls/hr [id number] 10/12/19 16:30 10/13/19 06:40 80 MLS/HR Amoxicillin/ Clavulanate Potassium (Augmentin 500/ 125mg) 1 tab DAILY 10/09/19 10:30 10/10/19 10:21 DC 10/10/19 10:08 1 TAB Aspirin (Ecotrin) 81 mg [id number] 10/09/19 08:00 10/10/19 10:10 81 MG Atorvastatin Calcium (Lipitor) 40 mg HS 10/08/19 21:00 10/09/19 21:30 40 MG Calcium Acetate (Phoslo) 1,334 mg [id number] 10/08/19 20:00 10/10/19 17:35 1,334 MG Dextrose (Dextrose 50%-Water Syringe) 12.5 gm PRN Q15MIN PRN 10/08/19 17:00 10/08/19 21:05 25 GM Dextrose (Iv Dextrose 5%) 250 ml PRN Q15MIN PRN 10/08/19 17:00 Docusate Sodium (Colace) 100 mg PRN BID PRN 10/08/19 16:30 Doxycycline Hyclate (Vibra-Tab) 100 mg BID 10/09/19 11:00 10/10/19 10:21 DC 10/10/19 10:08 100 MG Fluconazole (Diflucan) 100 mg DAILY 10/09/19 10:30 10/12/19 11:57 DC 10/10/19 10:08 100 MG Furosemide (Lasix) 80 mg [id number] 10/08/19 18:00 10/10/19 16:15 80 MG Heparin Sodium (Porcine) (Heparin Sodium) 5,000 unit Q8HRS 10/13/19 06:00 10/13/19 06:01 5,000 UNIT Insulin Glargine (Lantus Syringe) 10 unit QHS 10/08/19 21:00 10/12/19 22:32 10 UNIT Insulin Human Lispro (HumaLOG) 4 units Q6HRS 10/13/19 12:00 10/13/19 13:04 4 UNITS Lactobacillus Rhamnosus (Culturelle) 1 cap BID 10/08/19 21:00 10/10/19 10:09 1 CAP Linezolid/Dextrose 300 ml @ 300 mls/hr Q12HR 10/12/19 12:00 10/13/19 09:05 300 MLS/HR Losartan Potassium (Cozaar) 100 mg HS 10/08/19 21:00 10/09/19 21:30 100 MG Meropenem 500 mg/ Sodium Chloride 50 ml @ 100 mls/hr Q12HR 10/13/19 21:00 Micafungin Sodium 100 mg/Dextrose 100 ml @ 100 mls/hr Q24H 10/12/19 12:00 10/13/19 12:09 100 MLS/HR Montelukast Sodium (Singulair) 10 mg HS PRN 10/08/19 17:00 Ondansetron HCl (Zofran Odt) 4 mg PRN Q6HRS PRN 10/08/19 17:00 Ondansetron HCl (Zofran) 4 mg PRN Q4HRS PRN 10/08/19 16:30 Pantoprazole Sodium (PROTONIX VIAL for IV PUSH) 40 mg DAILYAC 10/12/19 10:00 10/13/19 09:12 40 MG Pantoprazole Sodium (Protonix) 40 mg DAILYAC 10/09/19 07:30 10/12/19 09:54 DC 10/10/19 10:10 40 MG Piperacillin Sod/ Tazobactam Sod 2.25 gm/Sodium Chloride 50 ml @ 100 mls/hr Q8HRS 10/10/19 11:00 10/12/19 11:56 DC 10/11/19 22:06 100 MLS/HR Sodium Chloride 500 ml @ 500 mls/hr 1X ONCE 10/08/19 20:00 10/08/19 20:59 DC 10/08/19 20:00 500 MLS/HR Tamsulosin HCl (Flomax) 0.4 mg HS 10/08/19 21:00 10/09/19 21:30 0.4 MG Tramadol HCl (Ultram) 50 mg PRN Q6HRS PRN 10/08/19 17:00 10/12/19 11:56 DC Vancomycin HCl (Vanco Per Pharmacy) 1 each PRN DAILY PRN 10/10/19 10:30 10/12/19 11:56 DC 10/11/19 15:08 1 EACH Vancomycin HCl (Vancomycin Random Level) 1 each 1X ONCE 10/12/19 05:00 10/12/19 05:01 DC 10/12/19 05:00 1 EACH Vancomycin HCl 1.5 gm/Sodium Chloride 500 ml @ 250 mls/hr 1X ONCE 10/10/19 11:00 10/10/19 12:59 DC 10/10/19 16:14 250 MLS/HR Vitamin A/Vitamin D (Vitamin A & D Ointment) 1 lucero PRN Q1HR PRN 10/09/19 09:00 Lab Laboratory Tests Test 10/12/19 17:09 10/12/19 20:51 10/13/19 07:35 10/13/19 11:36 Glucose (Fingerstick) 132 mg/dL (70-99) 236 mg/dL (70-99) 439 mg/dL (70-99) 371 mg/dL (70-99) Results All relevant outside records, renal labs, imaging studies, telemetry/EKG's were reviewed. IVAN APARICIO MD Oct 13, 2019 14:06
[2019-10-13 14:55] VITALS: BP 126/61
[2019-10-13 19:06] LABS: BASO # 0.1 x10^3/uL (0.0-0.2); BASO % 1 % (0-3); EOS # 0.2 x10^3/uL (0.0-0.7); EOS % 2 % (0-3); HEMATOCRIT 28.4 % (39.0-53.0); HEMOGLOBIN 8.9 g/dL (13.0-17.5); LYMPH # 1.1 x10^3/uL (1.0-4.8); LYMPH % 9 % (24-48); MEAN CORPUSCULAR HEMOGLOBIN 30 pg (25-35); MEAN CORPUSCULAR HGB CONC 31 g/dL (31-37); MEAN CORPUSCULAR VOLUME 96 fL (79-100); MONO # 0.7 x10^3/uL (0.0-1.1); MONO % 6 % (0-9); NEUT # 9.7 x10^3/uL (1.8-7.7); NEUT % 83 % (31-73); PLATELET COUNT 269 x10^3/uL (140-400); RED BLOOD COUNT 2.96 x10^6/uL (4.30-5.70); WHITE BLOOD COUNT 11.7 x10^3/uL (4.0-11.0)
[2019-10-13 19:15] LABS: ALBUMIN 0.7 g/dL (3.4-5.0); CALCIUM 8.5 mg/dL (8.5-10.1); CREATININE 8.4 mg/dL (0.7-1.3); GFR 6.7; PHOSPHORUS 8.9 mg/dL (2.6-4.7); POTASSIUM 4.6 mmol/L (3.5-5.1)
[2019-10-13 19:25] VITALS: BP 126/47
[2019-10-13] MEDS: TAMSULOSIN 0.4 MG CAP.ER.24H. PO SCH (20:54)
[2019-10-13] MEDS: LOSARTAN POTASSIUM 50 MG TABLET. PO SCH (20:54)
[2019-10-13] MEDS: ATORVASTATIN CALCIUM 40 MG TABLET. PO SCH (20:54)
[2019-10-13] MEDS: INSULIN GLARGINE SYRINGE. SQ SCH (21:00)
--- NOTE | 2019-10-13 22:32 | NUR ---
This nurse paged Dr. Javed to ask for the ok to have a PICC line placed on pt for IV access. Dr. Javed answering service called back and stated that they had spoke to the doctor and gave the ok to place PICC line.
[2019-10-13 23:56] VITALS: BP 123/65
[2019-10-14 03:00] VITALS: BP 125/66
[2019-10-14] MEDS: AA 4.25 %/CALCIUM/LYTES/D5W 1,000 ML IV SCH ×2 (06:00→21:57)
[2019-10-14] MEDS: INSULIN LISPRO 300 UNITS/3 ML VIAL. SQ SCH ×8 (06:00→21:00)
[2019-10-14] MEDS: HEPARIN for SUB-Q USE 5,000 UNIT/ML VIAL. SQ SCH ×3 (06:00→22:15)
--- NOTE | 2019-10-14 07:20 | PDOC ---
Infectious Disease Note Subjective Subjective Pt well known to us from recent admissions Just dc Oct 03 with Augment/doxy/Fluconazole - he cannot tell me if he was taking these at home 53 yo male brought in again for mental status change and weakness to [facility] via EMS with hyperglycemia and altered mental status. The patient's relatives who lives out of state was talking to him on the phone and thought that he sounded unusual. EMS found the patient on the couch and the patient admits to sitting there for 3 days. He had urine and feces on him. His initial blood sugar was well over 400. BUN 65, Cr 9.5, Albumin 1.2, WBC 13, Hb 9.4, his anion gap is 22. His blood sugar was 484. Lactate 4. Alkaline phosphatase 583. He has end-stage renal disease on PD Over the past few weeks this is recurrent 4th admission and he seems to be failing to thrive He was supposed to f/u with [facility] again for balanitis with wounds over the glans but did not Alert and better but having neuropathy in his feet. No F/C/S/N/V/D/SOA/rash Hungry ROS ROS o/w neg Vital Sign Vital Signs Vital Signs Date Time Temp Pulse Resp B/P (MAP) Pulse Ox O2 Delivery O2 Flow Rate FiO2 10/14/19 03:00 97.4 96 18 125/66 (85) 94 Nasal Cannula 2.0 97.4 Physical Exam PHYSICAL EXAM GENERAL: Alert today. in bed - NAD - coop HEENT: Normocephalic, atraumatic, anicteric. No thrush. NECK: No tenderness. Supple, no JVD, LUNGS: Clear. HEART: S1, S2. ABDOMEN: Soft. PD catheter in place, nontender, nondistended. GENITOURINARY: Penile swelling, min redness with eschar like lesion,, No purulence noted - No drainage today - still painful EXTREMITIES: no pedal edema/swelling/joint pain or erythema SKIN: Dry skin. No cyanosis.superficial skin erythema on back pressure changes NEUROLOGIC:Answering questions well. appropriate PSYCHIATRIC flat Labs Lab Laboratory Tests Test 10/13/19 07:35 10/13/19 11:36 10/13/19 16:15 10/13/19 18:45 Glucose (Fingerstick) 439 mg/dL (70-99) 371 mg/dL (70-99) 166 mg/dL (70-99) White Blood Count 11.7 x10^3/uL (4.0-11.0) Red Blood Count 2.96 x10^6/uL (4.30-5.70) Hemoglobin 8.9 g/dL (13.0-17.5) Hematocrit 28.4 % (39.0-53.0) Mean Corpuscular Volume 96 fL (79-100) Mean Corpuscular Hemoglobin 30 pg (25-35) Mean Corpuscular Hemoglobin Concent 31 g/dL (31-37) Red Cell Distribution Width 17.0 % (11.5-14.5) Platelet Count 269 x10^3/uL (140-400) Neutrophils (%) (Auto) 83 % (31-73) Lymphocytes (%) (Auto) 9 % (24-48) Monocytes (%) (Auto) 6 % (0-9) Eosinophils (%) (Auto) 2 % (0-3) Basophils (%) (Auto) 1 % (0-3) Neutrophils # (Auto) 9.7 x10^3/uL (1.8-7.7) Lymphocytes # (Auto) 1.1 x10^3/uL (1.0-4.8) Monocytes # (Auto) 0.7 x10^3/uL (0.0-1.1) Eosinophils # (Auto) 0.2 x10^3/uL (0.0-0.7) Basophils # (Auto) 0.1 x10^3/uL (0.0-0.2) Sodium Level 134 mmol/L (136-145) Potassium Level 4.6 mmol/L (3.5-5.1) Chloride Level 96 mmol/L (98-107) Carbon Dioxide Level 29 mmol/L (21-32) Anion Gap 9 (6-14) Blood Urea Nitrogen 66 mg/dL (8-26) Creatinine 8.4 mg/dL (0.7-1.3) Estimated GFR (Cockcroft-Gault) 6.7 Glucose Level 90 mg/dL (70-99) Calcium Level 8.5 mg/dL (8.5-10.1) Phosphorus Level 8.9 mg/dL (2.6-4.7) Albumin 0.7 g/dL (3.4-5.0) Test 10/13/19 21:26 Glucose (Fingerstick) 71 mg/dL (70-99) Micro Art U/S 10/12 Impression: Occlusion of the distal brachiocephalic fistula. Thrombus within the cephalic venous portion of the fistula outflow region. Microbiology 10/08/19 Blood Culture - Preliminary, Resulted NO GROWTH AFTER 1 DAY Objective Assessment Fever ? ID vs med - better 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 Leukocytosis - better - cults neg 2. Acute Encephalopathy - some better - Ammonia nml. TSH pending MRI - neg and CT with acute on chronic sinuses 3. DKA 4. Balanitis chronic 5. Anemia of chronic disease. 6. End-stage renal disease, on peritoneal dialysis. 7. Peripheral vascular disease. Plan Plan of Care Began Vancomycin/Zosyn 10/10 but will d/c'd with Fever and repeated Blood cults/Check Resp viral panel. Begin Micafungin/Zyvox and Meropenem today 10/12 Neuropathy per primary Need Urology f/u F/u labs and cults - neg so far Local wound care D/w nursing CORY NUNEZ MD Oct 14, 2019 07:20
[2019-10-14 07:41] VITALS: BP 120/47
[2019-10-14] MEDS: CALCIUM ACETATE 667 MG CAPSULE PO SCH ×3 (08:00→17:00)
[2019-10-14] MEDS: ASPIRIN ENTERIC COATED 81 MG TABLET.DR. PO SCH (08:00)
--- NOTE | 2019-10-14 08:06 | PDOC ---
PROGRESS NOTES Chief Complaint Chief Complaint A/P: Acute encephalopathy - metabolic 2/2 DKA and toxic 2/2 likely infectious etiology. Still somewhat confused DKA, type 2 - off insulin GTT. will repeat BMP, able to eat, lantus tonight. Elevated alkaline phosphatase level - will monitor, no biliary problems previously Lactic acidosis - likely due to diabetes mellitus. Will trend Penile cellulitis - present on admission, likely from failure to f/u outpatient - Doxy and augmentin with fluconazole previously. Will culture and consult ID ESRD on HD transitioning to PD prior to his admission - tolerating well. Will consult nephrology Sepsis - from penile cellulitis as etiology, f/u cultures. Previously with coag negative staph on PD culture. F/u repeat culture HTN - cont meds DM type 2 insulin requiring - now hyperglycemic, previously with hypoglycemic event - hypoglycemia protocol. Cont insulin basal bolus plus once out of DKA Severe protein calorie malnutrition - unclear etiology, albumin 1.2, definitely has inconsistent PO intake. Color Strainer to see Anemia - of chronic renal disease Penile cellulitis, could have a component of vasculature involvement. U/S shows no abscess - painless ulcer concerning. Syphilis testing negative previously. Wound care to see Gait instability - needs further PT Anemia - of chronic renal disease Hyperphosphatemia - likely related to phos binder compliance difficulties. Will add phos binder, d/w nephrology FEN - Renal ADA PPX - Heparin TID FULL CODE Dispo - inpatient likely for at least 2 midnights History of Present Illness History of Present Illness Mr Easton is a 53yo M w/ PMHx hypertension, diabetes, and end-stage renal disease previously on hemodialysis who transitioned to peritoneal dialysis mid 2018. Presented to [place] via EMS with hyperglycemia and altered mental status. The patient's relatives who lives out of state was talking to him on the phone and thought that he sounded unusual. EMS found the patient on the couch and the patient admits to sitting there for 3 days. He had urine and feces on him. His initial blood sugar was well over 400. He was alert to himself only at first. He was becoming more alert during transport. Patient denies any falls. He denies drinking alcohol though his family is concerned he has been drinking. ETOH level not detectable. The patient is a long-standing diabetic. He is on dialysis. He says that he used peritoneal dialysis last night. He does not have any additional specific complaints. He denies any falls or trauma. CXR clear BUN 65, Cr 9.5, Albumin 1.2, WBC 13, Hb 9.4, his anion gap is 22. His blood sugar was 484. Lactate 4. Alkaline phosphatase 583. Called for admission for further treatment of his confusion and labs abnormalities. No nephrology services at [facility] so transferred to [facility]. 10/09: Gap closed, eating. Still confused. His brother from [place], [place] has called and noted that he has called adult protective services on Mr Easton's . Patient does not want to discuss this with me. He is amenable to rehab referral and outpatient referral to urology as well. 10/10: WBC still up. Denies CP. Mild SOB. Penile pain and bilateral hand pain as well as abdominal pain. He is still confused today. 10/11: States he ate breakfast. No abdominal pain or penile pain today. Still with some cough and SOB, near his baseline. Very weak. Ammonia negative. MRI negative for strok. WINE SALES REPRESENTATIVE evaluated, grossly aspirating, placed NPO. D/w Robin, his DPOA to consult GI for PEG consideration 10/12: Fever 102F, mentally very slow. CT head negative. Aspirating, consulted GI to consider PEG, would need to remove PD cath and convert to HD. His LUE fistula examined - Occlusion distal brachiocephalic fistula with thrombus in cephalic venous portion of the fistula outflow region. 10/13: D/w family may need feeding tube and convert to HD. Still very slow men tally. He states he feels fine. Barely able to move. PPN at 80cc/hr. Glucose in 400s Lost IV access overnight. He is more talkative today. Asking for diet, but grossly aspirating. Thinks his brother Robin is in the room and occasionally still thinks he is in [place], but upon further questioning and reminding he recalls that he is at [place]. He refuses to see psychiatrist. He is also asking for valium and gabapentin. I have advised him since he is still hallucinating this is not advised. WBC improving. He wishes to go home, however his brother informs me that the camper he lives in with his is "uninhabitable" and has over 40 cats living in and around it. According to the patient's son this is not an exaggeration. Plan: [place], if aspirating will convert to HD temporarily and consent to place PEG, then placement for physical rehabilitation and outpatient urology visit for persistent balanitis. Vitals Vitals Vital Signs Date Time Temp Pulse Resp B/P (MAP) Pulse Ox O2 Delivery O2 Flow Rate FiO2 10/14/19 07:41 97.5 94 18 120/47 (71) 98 Nasal Cannula 2.0 97.5 Physical Exam Physical Exam GENERAL: Alert today. in bed - NAD - coop HEENT: Normocephalic, atraumatic, anicteric. No thrush. NECK: No tenderness. Supple, no JVD, LUNGS: Clear. HEART: S1, S2. ABDOMEN: Soft. PD catheter in place, nontender, nondistended. GENITOURINARY: Penile swelling, min redness with eschar like lesion,, No purulence noted - No drainage today - still painful EXTREMITIES: no pedal edema/swelling/joint pain or erythema SKIN: Dry skin. No cyanosis.superficial skin erythema on back pressure changes NEUROLOGIC:Answering questions well. appropriate PSYCHIATRIC flat General: Alert, Cooperative, No acute distress Lungs: Clear, Other Abdomen: Normal bowel sounds, Soft, No tenderness, No hepatosplenomegaly, No masses, Other (PD catheter) Extremities: No clubbing, No cyanosis, Normal pulses, No tenderness/swelling Skin: Other (Penile ulcer, unable to assess glans, appears to have phimosis) Labs LABS Laboratory Tests Test 10/13/19 11:36 10/13/19 16:15 10/13/19 18:45 10/13/19 21:26 Glucose (Fingerstick) 371 mg/dL (70-99) 166 mg/dL (70-99) 71 mg/dL (70-99) White Blood Count 11.7 x10^3/uL (4.0-11.0) Red Blood Count 2.96 x10^6/uL (4.30-5.70) Hemoglobin 8.9 g/dL (13.0-17.5) Hematocrit 28.4 % (39.0-53.0) Mean Corpuscular Volume 96 fL (79-100) Mean Corpuscular Hemoglobin 30 pg (25-35) Mean Corpuscular Hemoglobin Concent 31 g/dL (31-37) Red Cell Distribution Width 17.0 % (11.5-14.5) Platelet Count 269 x10^3/uL (140-400) Neutrophils (%) (Auto) 83 % (31-73) Lymphocytes (%) (Auto) 9 % (24-48) Monocytes (%) (Auto) 6 % (0-9) Eosinophils (%) (Auto) 2 % (0-3) Basophils (%) (Auto) 1 % (0-3) Neutrophils # (Auto) 9.7 x10^3/uL (1.8-7.7) Lymphocytes # (Auto) 1.1 x10^3/uL (1.0-4.8) Monocytes # (Auto) 0.7 x10^3/uL (0.0-1.1) Eosinophils # (Auto) 0.2 x10^3/uL (0.0-0.7) Basophils # (Auto) 0.1 x10^3/uL (0.0-0.2) Sodium Level 134 mmol/L (136-145) Potassium Level 4.6 mmol/L (3.5-5.1) Chloride Level 96 mmol/L (98-107) Carbon Dioxide Level 29 mmol/L (21-32) Anion Gap 9 (6-14) Blood Urea Nitrogen 66 mg/dL (8-26) Creatinine 8.4 mg/dL (0.7-1.3) Estimated GFR (Cockcroft-Gault) 6.7 Glucose Level 90 mg/dL (70-99) Calcium Level 8.5 mg/dL (8.5-10.1) Phosphorus Level 8.9 mg/dL (2.6-4.7) Albumin 0.7 g/dL (3.4-5.0) Test 10/14/19 07:05 Glucose (Fingerstick) 166 mg/dL (70-99) Comment Review of Relevant I have reviewed the following items alex (where applicable) has been applied. Labs Laboratory Tests Test 10/12/19 09:50 10/12/19 11:10 10/12/19 12:03 10/12/19 17:09 Random Vancomycin Level 29.4 mcg/mL White Blood Count 14.1 x10^3/uL (4.0-11.0) Red Blood Count 2.83 x10^6/uL (4.30-5.70) Hemoglobin 8.3 g/dL (13.0-17.5) Hematocrit 27.6 % (39.0-53.0) Mean Corpuscular Volume 97 fL (79-100) Mean Corpuscular Hemoglobin 29 pg (25-35) Mean Corpuscular Hemoglobin Concent 30 g/dL (31-37) Red Cell Distribution Width 17.6 % (11.5-14.5) Platelet Count 237 x10^3/uL (140-400) Neutrophils (%) (Auto) 85 % (31-73) Lymphocytes (%) (Auto) 9 % (24-48) Monocytes (%) (Auto) 5 % (0-9) Eosinophils (%) (Auto) 0 % (0-3) Basophils (%) (Auto) 1 % (0-3) Neutrophils # (Auto) 12.0 x10^3/uL (1.8-7.7) Lymphocytes # (Auto) 1.2 x10^3/uL (1.0-4.8) Monocytes # (Auto) 0.8 x10^3/uL (0.0-1.1) Eosinophils # (Auto) 0.0 x10^3/uL (0.0-0.7) Basophils # (Auto) 0.1 x10^3/uL (0.0-0.2) Erythrocyte Sedimentation Rate > 130 (0-15) Sodium Level 139 mmol/L (136-145) Potassium Level 4.1 mmol/L (3.5-5.1) Chloride Level 99 mmol/L (98-107) Carbon Dioxide Level 26 mmol/L (21-32) Anion Gap 14 (6-14) Blood Urea Nitrogen 62 mg/dL (8-26) Creatinine 9.2 mg/dL (0.7-1.3) Estimated GFR (Cockcroft-Gault) 6.0 Glucose Level 247 mg/dL (70-99) Calcium Level 8.0 mg/dL (8.5-10.1) Phosphorus Level 8.4 mg/dL (2.6-4.7) Gamma Glutamyl Transpeptidase 248 U/L (10-85) Albumin 0.8 g/dL (3.4-5.0) Vitamin B12 Level 686 pg/mL (247-911) Glucose (Fingerstick) 209 mg/dL (70-99) 132 mg/dL (70-99) Test 10/12/19 20:51 10/13/19 07:35 10/13/19 11:36 10/13/19 16:15 Glucose (Fingerstick) 236 mg/dL (70-99) 439 mg/dL (70-99) 371 mg/dL (70-99) 166 mg/dL (70-99) Test 10/13/19 18:45 10/13/19 21:26 10/14/19 07:05 White Blood Count 11.7 x10^3/uL (4.0-11.0) Red Blood Count 2.96 x10^6/uL (4.30-5.70) Hemoglobin 8.9 g/dL (13.0-17.5) Hematocrit 28.4 % (39.0-53.0) Mean Corpuscular Volume 96 fL (79-100) Mean Corpuscular Hemoglobin 30 pg (25-35) Mean Corpuscular Hemoglobin Concent 31 g/dL (31-37) Red Cell Distribution Width 17.0 % (11.5-14.5) Platelet Count 269 x10^3/uL (140-400) Neutrophils (%) (Auto) 83 % (31-73) Lymphocytes (%) (Auto) 9 % (24-48) Monocytes (%) (Auto) 6 % (0-9) Eosinophils (%) (Auto) 2 % (0-3) Basophils (%) (Auto) 1 % (0-3) Neutrophils # (Auto) 9.7 x10^3/uL (1.8-7.7) Lymphocytes # (Auto) 1.1 x10^3/uL (1.0-4.8) Monocytes # (Auto) 0.7 x10^3/uL (0.0-1.1) Eosinophils # (Auto) 0.2 x10^3/uL (0.0-0.7) Basophils # (Auto) 0.1 x10^3/uL (0.0-0.2) Sodium Level 134 mmol/L (136-145) Potassium Level 4.6 mmol/L (3.5-5.1) Chloride Level 96 mmol/L (98-107) Carbon Dioxide Level 29 mmol/L (21-32) Anion Gap 9 (6-14) Blood Urea Nitrogen 66 mg/dL (8-26) Creatinine 8.4 mg/dL (0.7-1.3) Estimated GFR (Cockcroft-Gault) 6.7 Glucose Level 90 mg/dL (70-99) Calcium Level 8.5 mg/dL (8.5-10.1) Phosphorus Level 8.9 mg/dL (2.6-4.7) Albumin 0.7 g/dL (3.4-5.0) Glucose (Fingerstick) 71 mg/dL (70-99) 166 mg/dL (70-99) Laboratory Tests Test 10/13/19 11:36 10/13/19 16:15 10/13/19 18:45 10/13/19 21:26 Glucose (Fingerstick) 371 mg/dL (70-99) 166 mg/dL (70-99) 71 mg/dL (70-99) White Blood Count 11.7 x10^3/uL (4.0-11.0) Red Blood Count 2.96 x10^6/uL (4.30-5.70) Hemoglobin 8.9 g/dL (13.0-17.5) Hematocrit 28.4 % (39.0-53.0) Mean Corpuscular Volume 96 fL (79-100) Mean Corpuscular Hemoglobin 30 pg (25-35) Mean Corpuscular Hemoglobin Concent 31 g/dL (31-37) Red Cell Distribution Width 17.0 % (11.5-14.5) Platelet Count 269 x10^3/uL (140-400) Neutrophils (%) (Auto) 83 % (31-73) Lymphocytes (%) (Auto) 9 % (24-48) Monocytes (%) (Auto) 6 % (0-9) Eosinophils (%) (Auto) 2 % (0-3) Basophils (%) (Auto) 1 % (0-3) Neutrophils # (Auto) 9.7 x10^3/uL (1.8-7.7) Lymphocytes # (Auto) 1.1 x10^3/uL (1.0-4.8) Monocytes # (Auto) 0.7 x10^3/uL (0.0-1.1) Eosinophils # (Auto) 0.2 x10^3/uL (0.0-0.7) Basophils # (Auto) 0.1 x10^3/uL (0.0-0.2) Sodium Level 134 mmol/L (136-145) Potassium Level 4.6 mmol/L (3.5-5.1) Chloride Level 96 mmol/L (98-107) Carbon Dioxide Level 29 mmol/L (21-32) Anion Gap 9 (6-14) Blood Urea Nitrogen 66 mg/dL (8-26) Creatinine 8.4 mg/dL (0.7-1.3) Estimated GFR (Cockcroft-Gault) 6.7 Glucose Level 90 mg/dL (70-99) Calcium Level 8.5 mg/dL (8.5-10.1) Phosphorus Level 8.9 mg/dL (2.6-4.7) Albumin 0.7 g/dL (3.4-5.0) Test 10/14/19 07:05 Glucose (Fingerstick) 166 mg/dL (70-99) Microbiology 10/12/19 Blood Culture - Preliminary, Resulted NO GROWTH AFTER 1 DAY 10/08/19 Aerobic Culture - Final, Complete 10/08/19 Aerobic Culture Result 1 (HEATHER) - Final, Complete 10/08/19 Gram Stain - Final, Complete 10/08/19 Gram Stain Result 1 (HEATHER) - Final, Complete 10/08/19 Gram Stain Result 2 (HEATHER) - Final, Complete Medications Current Medications Ondansetron HCl (Zofran) 4 mg PRN Q4HRS PRN IV NAUSEA/VOMITING; Start 10/08/19 at 16:30 Acetaminophen (Tylenol) 650 mg PRN Q4HRS PRN PO TEMP OVER 100.4F OR MILD PAIN; Start 10/08/19 at 16:30 Docusate Sodium (Colace) 100 mg PRN BID PRN PO CONSTIPATION; Start 10/08/19 at 16:30 Insulin Human Lispro (HumaLOG) 0-7 UNITS TIDACHC SQ Last administered on 10/13/19at 13:03; Start 10/08/19 at 21:00 Dextrose (Dextrose 50%-Water Syringe) 12.5 gm PRN Q15MIN PRN IV SEE COMMENTS Last administered on 10/08/19at 21:05; Start 10/08/19 at 17:00 Dextrose (Iv Dextrose 5%) 250 ml PRN Q15MIN PRN IV SEE COMMENTS; Start 10/08/19 at 17:00 Aspirin (Ecotrin) 81 mg DAILYWBKFT PO Last administered on 10/10/19at 10:10; Start 10/09/19 at 08:00 Atorvastatin Calcium (Lipitor) 40 mg HS PO Last administered on 10/09/19at 21:30; Start 10/08/19 at 21:00 Furosemide (Lasix) 80 mg [id number] PO Last administered on 10/10/19at 16:15; Start 10/08/19 at 18:00 Lactobacillus Rhamnosus (Culturelle) 1 cap BID PO Last administered on 10/10/19at 10:09; Start 10/08/19 at 21:00 Montelukast Sodium (Singulair) 10 mg HS PRN PO ALLERGIES; Start 10/08/19 at 17:00 Ondansetron HCl (Zofran Odt) 4 mg PRN Q6HRS PRN PO NAUSEA; Start 10/08/19 at 17:00 Tamsulosin HCl (Flomax) 0.4 mg HS PO Last administered on 10/09/19at 21:30; Start 10/08/19 at 21:00 Tramadol HCl (Ultram) 50 mg PRN Q6HRS PRN PO MODERATE PAIN; Start 10/08/19 at 17:00; Stop 10/12/19 at 11:56; Status DC Insulin Glargine (Lantus Syringe) 10 unit QHS SQ Last administered on 10/12/19at 22:32; Start 10/08/19 at 21:00 Losartan Potassium (Cozaar) 100 mg HS PO Last administered on 10/09/19at 21:30; Start 10/08/19 at 21:00 Pantoprazole Sodium (Protonix) 40 mg DAILYAC PO Last administered on 10/10/19at 10:10; Start 10/09/19 at 07:30; Stop 10/12/19 at 09:54; Status DC Sodium Chloride 500 ml @ 500 mls/hr 1X ONCE IV Last administered on 10/08/19at 20:00; Start 10/08/19 at 20:00; Stop 10/08/19 at 20:59; Status DC Calcium Acetate (Phoslo) 1,334 mg TIDWMEALS PO Last administered on 10/10/19at 17:35; Start 10/08/19 at 20:00 Vitamin A/Vitamin D (Vitamin A & D Ointment) 1 lucero PRN Q1HR PRN TP SKIN PROTECTION; Start 10/09/19 at 09:00 Doxycycline Hyclate (Vibra-Tab) 100 mg BID PO Last administered on 10/10/19at 10:08; Start 10/09/19 at 11:00; Stop 10/10/19 at 10:21; Status DC Fluconazole (Diflucan) 100 mg DAILY PO Last administered on 10/10/19at 10:08; Start 10/09/19 at 10:30; Stop 10/12/19 at 11:57; Status DC Amoxicillin/ Clavulanate Potassium (Augmentin 500/ 125mg) 1 tab DAILY PO Last administered on 10/10/19at 10:08; Start 10/09/19 at 10:30; Stop 10/10/19 at 10:21; Status DC Vancomycin HCl (Vanco Per Pharmacy) 1 each PRN DAILY PRN MC SEE COMMENTS Last administered on 10/11/19at 15:08; Start 10/10/19 at 10:30; Stop 10/12/19 at 11:56; Status DC Piperacillin Sod/ Tazobactam Sod 2.25 gm/Sodium Chloride 50 ml @ 100 mls/hr Q8HRS IV Last administered on 10/11/19at 22:06; Start 10/10/19 at 11:00; Stop 10/12/19 at 11:56; Status DC Vancomycin HCl 1.5 gm/Sodium Chloride 500 ml @ 250 mls/hr 1X ONCE IV Last administered on 10/10/19at 16:14; Start 10/10/19 at 11:00; Stop 10/10/19 at 12:59; Status DC Vancomycin HCl (Vancomycin Random Level) 1 each 1X ONCE MC Last administered on 10/12/19at 05:00; Start 10/12/19 at 05:00; Stop 10/12/19 at 05:01; Status DC Acetaminophen (Tylenol Supp) 650 mg PRN Q6HRS PRN DC MILD PAIN / TEMP; Start 10/12/19 at 06:00 Pantoprazole Sodium (PROTONIX VIAL for IV PUSH) 40 mg DAILYAC IVP Last administered on 10/13/19at 09:12; Start 10/12/19 at 10:00 Meropenem 500 mg/ Sodium Chloride 50 ml @ 100 mls/hr Q8HRS IV Last administered on 10/13/19at 06:00; Start 10/12/19 at 13:00; Stop 10/13/19 at 13:10; Status DC Micafungin Sodium 100 mg/Dextrose 100 ml @ 100 mls/hr Q24H IV Last administered on 10/13/19at 12:09; Start 10/12/19 at 12:00 Linezolid/Dextrose 300 ml @ 300 mls/hr Q12HR IV Last administered on 10/14/19at 00:27; Start 10/12/19 at 12:00 Amino Acids/ Electrolytes/ Dextrose 1,000 ml @ 80 mls/hr [id number] IV Last administered on 10/13/19at 06:40; Start 10/12/19 at 16:30 Heparin Sodium (Porcine) (Heparin Sodium) 5,000 unit Q8HRS SQ Last administered on 10/13/19at 23:19; Start 10/13/19 at 06:00 Insulin Human Lispro (HumaLOG) 21 units 1X ONCE SQ Last administered on 10/13/19at 09:26; Start 10/13/19 at 09:30; Stop 10/13/19 at 09:31; Status DC Insulin Human Lispro (HumaLOG) 4 units Q6HRS SQ Last administered on 10/13/19at 13:04; Start 10/13/19 at 12:00 Meropenem 500 mg/ Sodium Chloride 50 ml @ 100 mls/hr Q12HR IV Last administered on 10/14/19at 00:00; Start 10/13/19 at 21:00 Active Scripts Active Tramadol Hcl 50 Mg Tablet 50 Mg PO PRN Q6HRS PRN 3 Days Culturelle (Lactobacillus Rhamnosus Gg) 1 Each Cap.sprink 1 Cap PO BID 7 Days [Fluconazole] 100 MG Tablet 100 Mg PO DAILY 7 Days Doxycycline Hyclate 100 Mg Tablet 100 Mg PO BID 7 Days Amox Tr-K Clv 500-125 Mg Tab (Amoxicillin/Potassium Clav) 1 Each Tablet 1 Tab PO DAILY 7 Days Aspirin Ec (Aspirin) 81 Mg Tablet.dr 81 Mg PO DAILYWBKFT Reported Glyburide 5 Mg Tablet 5 Mg PO DAILY Lantus Solostar (Insulin Glargine,Hum.rec.anlog) 100 Unit/1 Ml Insuln.pen 10 Unit SQ QHS Humalog (Insulin Lispro) 100 Unit/1 Ml Cartridge 100 Unit SQ TIDWMEALS Omeprazole 20 Mg Tablet.dr 20 Mg PO DAILY Calcitriol 0.5 Mcg Capsule 0.5 Mcg PO DAILY Furosemide 80 Mg Tablet 80 Mg PO BID Glucagen (Glucagon,Human Recombinant) 1 Mg Vial 1 PRN PRN Tamsulosin Hcl 0.4 Mg Cap.er.24h 1 Cap PO HS Montelukast Sodium Tablet (Montelukast Sodium) 10 Mg Tablet 1 Tab PO HS PRN Ondansetron Odt (Ondansetron) 4 Mg Tab.rapdis 1 Tab PO PRN Q6-8HRS PRN Lantus Solostar (Insulin Glargine,Hum.rec.anlog) 100 Unit/1 Ml Insuln.pen 11 Unit SQ QHS Humalog (Insulin Lispro) 100 Unit/1 Ml Cartridge 22 Unit SQ TIDWMEALS Cozaar (Losartan Potassium) 100 Mg Tablet 100 Mg PO HS Carvedilol 25 Mg Tablet 25 Mg PO BIDWMEALS Atorvastatin Calcium 40 Mg Tablet 40 Mg PO HS Amlodipine Besylate 10 Mg Tablet 10 Mg PO DAILY Vitals/I & O Vital Sign - Last 24 Hours 10/13/19 10/13/19 10/13/19 10/13/19 10:44 14:55 19:25 20:08 Temp 98.1 98.4 98.2 98.1 98.4 98.2 Pulse 90 88 82 Resp 18 16 16 B/P (MAP) 122/55 (77) 126/61 (82) 126/47 (73) Pulse Ox 96 94 94 O2 Delivery Nasal Cannula Nasal Cannula Nasal Cannula Nasal Cannula O2 Flow Rate 2.0 2.0 2.0 2.0 10/13/19 10/13/19 10/14/19 10/14/19 20:54 23:56 03:00 07:41 Temp 98.0 97.4 97.5 98.0 97.4 97.5 Pulse 82 95 96 94 Resp 16 18 18 B/P (MAP) 126/47 123/65 (84) 125/66 (85) 120/47 (71) Pulse Ox 92 94 98 O2 Delivery Nasal Cannula Nasal Cannula Nasal Cannula O2 Flow Rate 2.0 2.0 2.0 Intake and Output 10/13/19 10/13/19 10/14/19 15:00 23:00 07:00 Intake Total 0 ml Balance 0 ml Nutrition Consultation Dietary Evaluation: Recommendations by RD: Dietary education by RD, PPN/TPN Comments: REC PPN or TF for nutrition REC mvi and vit c per wound protocal due to multiple skin breakdown areas - See wound assessment when able Expected Outcomes/Goals: to meet >50% est nutr needs- goal onoing Interpretation of weight loss: >5% in 1 month Malnutrition Findings: Food and Nutrition Intake (Sev: <50% est energy req 5days Body Fat Depletion (Non Severe: Mild Depletion Weight Status: Underweight JOSE SOLANO MD Oct 14, 2019 08:06
[2019-10-14] MEDS: PANTOPRAZOLE IV PUSH 40 MG VIAL. IVP SCH (08:55)
[2019-10-14] MEDS: MEROPENEM 500 MG in IV NORMAL SALINE 50ML 50 ML IV SCH ×4 (08:56→21:58)
[2019-10-14] MEDS: LACTOBACILLUS RHAMNOSUS GG 1 CAPSULE. PO SCH ×3 (09:00→21:58)
[2019-10-14] MEDS: FUROSEMIDE 80 MG TABLET. PO SCH ×2 (09:00→15:06)
--- NOTE | 2019-10-14 11:28 | PDOC ---
SUBJECTIVE ROS Much more alert, No complaints or concerns OBJECTIVE Vital Signs Vital Signs Date Time Temp Pulse Resp B/P (MAP) Pulse Ox O2 Delivery O2 Flow Rate FiO2 10/14/19 07:41 97.5 94 18 120/47 (71) 98 Nasal Cannula 2.0 97.5 I & 0 Intake and Output 10/14/19 07:00 Intake Total 0 ml Balance 0 ml Intake Oral 0 ml # Voids 1 # Bowel Movements 2 PHYSICAL EXAM Physical Exam General: No acute distress, HEENT: OM moist Neck Supple Lungs: Clear to auscultation, Normal air movement Heart: S1S2, RRR, no thrills, no rubs, no gallops, no murmurs Cardiovascular: S1, S2 Abdomen: Normal bowel sounds, Soft, No tenderness, PD cath in place, no e/ Exit site infection Extremities: left av fistula , no bruit or thrill Skin: No rashes, No quinteros DIAGNOSIS/ASSESSMENT Assessment & Plan ESRD- Dr Riggs's pt at [facility] per Home Prescription ,resp status stable , continue same prescription, PD fluid clear, exit site no e/o infection Straight cath with 300 ml of urine , UA unremarkable may need to switch to HD - as social issues/living conditions / non compliance and risk of peritonitis Primary considering PEG as well Lt AV access Non functioning- IR/Vascular consult for further eval; meanwhile continue PD Fever- hold off on Tunneled HDC Anemia- VAN for Hgb < 10 Monitor Acute encephalopathy - metabolic 2/2 DKA and toxic 2/2 likely infectious etiology DKA, 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- On phoslo Phos improving HTN- low hold losartan for low BP Severe protein calorie malnutrition albumin 1.1, COMMENT/RELEVANT DATA Meds Current Medications Medications (Trade) Dose Ordered Sig/Rosalino Start Time Stop Time Status Last Admin Dose Admin Acetaminophen (Tylenol Supp) 650 mg PRN Q6HRS PRN 10/12/19 06:00 Acetaminophen (Tylenol) 650 mg PRN Q4HRS PRN 10/08/19 16:30 Amino Acids/ Electrolytes/ Dextrose 1,000 ml @ 80 mls/hr [id number] 10/12/19 16:30 10/13/19 06:40 80 MLS/HR Amoxicillin/ Clavulanate Potassium (Augmentin 500/ 125mg) 1 tab DAILY 10/09/19 10:30 10/10/19 10:21 DC 10/10/19 10:08 1 TAB Aspirin (Ecotrin) 81 mg [id number] 10/09/19 08:00 10/10/19 10:10 81 MG Atorvastatin Calcium (Lipitor) 40 mg HS 10/08/19 21:00 10/09/19 21:30 40 MG Calcium Acetate (Phoslo) 1,334 mg [id number] 10/08/19 20:00 10/10/19 17:35 1,334 MG Dextrose (Dextrose 50%-Water Syringe) 12.5 gm PRN Q15MIN PRN 10/08/19 17:00 10/08/19 21:05 25 GM Dextrose (Iv Dextrose 5%) 250 ml PRN Q15MIN PRN 10/08/19 17:00 Docusate Sodium (Colace) 100 mg PRN BID PRN 10/08/19 16:30 Doxycycline Hyclate (Vibra-Tab) 100 mg BID 10/09/19 11:00 10/10/19 10:21 DC 10/10/19 10:08 100 MG Fluconazole (Diflucan) 100 mg DAILY 10/09/19 10:30 10/12/19 11:57 DC 10/10/19 10:08 100 MG Furosemide (Lasix) 80 mg [id number] 10/08/19 18:00 10/10/19 16:15 80 MG Heparin Sodium (Porcine) (Heparin Sodium) 5,000 unit Q8HRS 10/13/19 06:00 10/13/19 23:19 5,000 UNIT Insulin Glargine (Lantus Syringe) 10 unit QHS 10/08/19 21:00 10/12/19 22:32 10 UNIT Insulin Human Lispro (HumaLOG) 4 units Q6HRS 10/13/19 12:00 10/13/19 13:04 4 UNITS Lactobacillus Rhamnosus (Culturelle) 1 cap BID 10/08/19 21:00 10/10/19 10:09 1 CAP Linezolid/Dextrose 300 ml @ 300 mls/hr Q12HR 10/12/19 12:00 10/14/19 00:27 300 MLS/HR Losartan Potassium (Cozaar) 100 mg HS 10/08/19 21:00 10/09/19 21:30 100 MG Meropenem 500 mg/ Sodium Chloride 50 ml @ 100 mls/hr Q12HR 10/13/19 21:00 10/14/19 08:56 100 MLS/HR Micafungin Sodium 100 mg/Dextrose 100 ml @ 100 mls/hr Q24H 10/12/19 12:00 10/13/19 12:09 100 MLS/HR Montelukast Sodium (Singulair) 10 mg HS PRN 10/08/19 17:00 Ondansetron HCl (Zofran Odt) 4 mg PRN Q6HRS PRN 10/08/19 17:00 Ondansetron HCl (Zofran) 4 mg PRN Q4HRS PRN 10/08/19 16:30 Pantoprazole Sodium (PROTONIX VIAL for IV PUSH) 40 mg DAILYAC 10/12/19 10:00 10/14/19 08:55 40 MG Pantoprazole Sodium (Protonix) 40 mg DAILYAC 10/09/19 07:30 10/12/19 09:54 DC 10/10/19 10:10 40 MG Piperacillin Sod/ Tazobactam Sod 2.25 gm/Sodium Chloride 50 ml @ 100 mls/hr Q8HRS 10/10/19 11:00 10/12/19 11:56 DC 10/11/19 22:06 100 MLS/HR Sodium Chloride 500 ml @ 500 mls/hr 1X ONCE 10/08/19 20:00 10/08/19 20:59 DC 10/08/19 20:00 500 MLS/HR Tamsulosin HCl (Flomax) 0.4 mg HS 10/08/19 21:00 10/09/19 21:30 0.4 MG Tramadol HCl (Ultram) 50 mg PRN Q6HRS PRN 10/08/19 17:00 10/12/19 11:56 DC Vancomycin HCl (Vanco Per Pharmacy) 1 each PRN DAILY PRN 10/10/19 10:30 10/12/19 11:56 DC 10/11/19 15:08 1 EACH Vancomycin HCl (Vancomycin Random Level) 1 each 1X ONCE 10/12/19 05:00 10/12/19 05:01 DC 10/12/19 05:00 1 EACH Vancomycin HCl 1.5 gm/Sodium Chloride 500 ml @ 250 mls/hr 1X ONCE 10/10/19 11:00 10/10/19 12:59 DC 10/10/19 16:14 250 MLS/HR Vitamin A/Vitamin D (Vitamin A & D Ointment) 1 lucero PRN Q1HR PRN 10/09/19 09:00 Lab Laboratory Tests Test 10/13/19 11:36 10/13/19 16:15 10/13/19 18:45 10/13/19 21:26 Glucose (Fingerstick) 371 mg/dL (70-99) 166 mg/dL (70-99) 71 mg/dL (70-99) White Blood Count 11.7 x10^3/uL (4.0-11.0) Red Blood Count 2.96 x10^6/uL (4.30-5.70) Hemoglobin 8.9 g/dL (13.0-17.5) Hematocrit 28.4 % (39.0-53.0) Mean Corpuscular Volume 96 fL (79-100) Mean Corpuscular Hemoglobin 30 pg (25-35) Mean Corpuscular Hemoglobin Concent 31 g/dL (31-37) Red Cell Distribution Width 17.0 % (11.5-14.5) Platelet Count 269 x10^3/uL (140-400) Neutrophils (%) (Auto) 83 % (31-73) Lymphocytes (%) (Auto) 9 % (24-48) Monocytes (%) (Auto) 6 % (0-9) Eosinophils (%) (Auto) 2 % (0-3) Basophils (%) (Auto) 1 % (0-3) Neutrophils # (Auto) 9.7 x10^3/uL (1.8-7.7) Lymphocytes # (Auto) 1.1 x10^3/uL (1.0-4.8) Monocytes # (Auto) 0.7 x10^3/uL (0.0-1.1) Eosinophils # (Auto) 0.2 x10^3/uL (0.0-0.7) Basophils # (Auto) 0.1 x10^3/uL (0.0-0.2) Sodium Level 134 mmol/L (136-145) Potassium Level 4.6 mmol/L (3.5-5.1) Chloride Level 96 mmol/L (98-107) Carbon Dioxide Level 29 mmol/L (21-32) Anion Gap 9 (6-14) Blood Urea Nitrogen 66 mg/dL (8-26) Creatinine 8.4 mg/dL (0.7-1.3) Estimated GFR (Cockcroft-Gault) 6.7 Glucose Level 90 mg/dL (70-99) Calcium Level 8.5 mg/dL (8.5-10.1) Phosphorus Level 8.9 mg/dL (2.6-4.7) Albumin 0.7 g/dL (3.4-5.0) Test 10/14/19 07:05 10/14/19 11:02 Glucose (Fingerstick) 166 mg/dL (70-99) 255 mg/dL (70-99) Results All relevant outside records, renal labs, imaging studies, telemetry/EKG's were reviewed. IVAN APARICIO MD Oct 14, 2019 11:28
[2019-10-14] MEDS ORDERED: BARIUM SULFATE 40% (APPLE) 148 GM PWD. PO ONE (11:30)
[2019-10-14 11:43] VITALS: BP 94/41
[2019-10-14 15:44] VITALS: BP 97/41
[2019-10-14] MEDS: MICAFUNGIN 100 MG in IV DEXTROSE 5% 100ML 100 ML IV SCH (18:48)
[2019-10-14 19:00] VITALS: BP 98/79
[2019-10-14] MEDS: TAMSULOSIN 0.4 MG CAP.ER.24H. PO SCH (21:00)
[2019-10-14] MEDS: ATORVASTATIN CALCIUM 40 MG TABLET. PO SCH ×2 (21:00→21:58)
[2019-10-14] MEDS: LOSARTAN POTASSIUM 50 MG TABLET. PO SCH (21:00)
[2019-10-14] MEDS: INSULIN GLARGINE SYRINGE. SQ SCH (22:14)
[2019-10-14 22:36] VITALS: BP 110/38
[2019-10-15 03:00] VITALS: BP 149/67
[2019-10-15] MEDS: HEPARIN for SUB-Q USE 5,000 UNIT/ML VIAL. SQ SCH (06:26)
[2019-10-15] MEDS: INSULIN LISPRO 300 UNITS/3 ML VIAL. SQ SCH ×9 (06:27→23:54)
[2019-10-15 07:00] VITALS: BP 147/55
[2019-10-15] MEDS: ASPIRIN ENTERIC COATED 81 MG TABLET.DR. PO SCH (08:00)
[2019-10-15] MEDS: CALCIUM ACETATE 667 MG CAPSULE PO SCH ×3 (08:00→17:00)
[2019-10-15] MEDS: AA 4.25 %/CALCIUM/LYTES/D5W 1,000 ML IV SCH (08:46)
[2019-10-15] MEDS: PANTOPRAZOLE IV PUSH 40 MG VIAL. IVP SCH (08:46)
[2019-10-15] MEDS: FUROSEMIDE 80 MG TABLET. PO SCH (09:00)
[2019-10-15] MEDS: LACTOBACILLUS RHAMNOSUS GG 1 CAPSULE. PO SCH ×2 (09:00→20:52)
[2019-10-15] MEDS ORDERED: BARIUM SULFATE 40% (APPLE) 148 GM PWD. PO ONE (10:00)
--- NOTE | 2019-10-15 10:46 | NUR ---
SS following up with discharge planning. SS phoned and faxed referral to [facility], ; fax [phone]. SS will continue to follow for discharge planning.
--- NOTE | 2019-10-15 10:58 | PDOC ---
Infectious Disease Note Subjective Subjective Pt well known to us from recent admissions Just dc Oct 03 with Augment/doxy/Fluconazole - he cannot tell me if he was taking these at home 53 yo male brought in again for mental status change and weakness to [place] via EMS with hyperglycemia and altered mental status. The patient's relatives who lives out of state was talking to him on the phone and thought that he sounded unusual. EMS found the patient on the couch and the patient admits to sitting there for 3 days. He had urine and feces on him. His initial blood sugar was well over 400. BUN 65, Cr 9.5, Albumin 1.2, WBC 13, Hb 9.4, his anion gap is 22. His blood sugar was 484. Lactate 4. Alkaline phosphatase 583. He has end-stage renal disease on PD Over the past few weeks this is recurrent 4th admission and he seems to be failing to thrive He was supposed to f/u with [facility] again for balanitis with wounds over the glans but did not Alert and better but having neuropathy in his feet. No F/C/S/N/V/D/SOA/rash Hungry ROS ROS no n/v/d/sob Vital Sign Vital Signs Vital Signs Date Time Temp Pulse Resp B/P (MAP) Pulse Ox O2 Delivery O2 Flow Rate FiO2 10/15/19 07:00 97.4 91 20 147/55 (85) 100 Nasal Cannula 2.0 97.4 Physical Exam PHYSICAL EXAM GENERAL: Alert today. in bed - NAD - coop HEENT: Normocephalic, atraumatic, anicteric. No thrush. NECK: No tenderness. Supple, no JVD, LUNGS: Clear. HEART: S1, S2. ABDOMEN: Soft. PD catheter in place, nontender, nondistended. GENITOURINARY: Penile swelling, min redness with eschar like lesion,, No purulence noted - No drainage today - still painful EXTREMITIES: no pedal edema/swelling/joint pain or erythema SKIN: Dry skin. No cyanosis.superficial skin erythema on back pressure changes NEUROLOGIC:Answering questions well. appropriate PSYCHIATRIC flat Labs Lab Laboratory Tests Test 10/14/19 11:02 10/14/19 16:35 10/14/19 18:14 10/14/19 20:32 Glucose (Fingerstick) 255 mg/dL (70-99) 405 mg/dL (70-99) 363 mg/dL (70-99) 295 mg/dL (70-99) Test 10/15/19 03:27 10/15/19 05:46 Glucose (Fingerstick) 287 mg/dL (70-99) 240 mg/dL (70-99) Micro Microbiology 10/12/19 Blood Culture - Preliminary, Resulted NO GROWTH AFTER 2 DAYS 10/08/19 Aerobic Culture - Final, Complete 10/08/19 Aerobic Culture Result 1 (HEATHER) - Final, Complete 10/08/19 Gram Stain - Final, Complete 10/08/19 Gram Stain Result 1 (HEATHER) - Final, Complete 10/08/19 Gram Stain Result 2 (HEATHER) - Final, Complete Objective Assessment Fever ? ID vs med - better 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 Leukocytosis - better - cults neg 2. Acute Encephalopathy - some better - Ammonia nml. TSH pending MRI - neg and CT with acute on chronic sinuses 3. DKA 4. Balanitis chronic 5. Anemia of chronic disease. 6. End-stage renal disease, on peritoneal dialysis. 7. Peripheral vascular disease. Plan Plan of Care Micafungin/Zyvox and Meropenem Neuropathy per primary Need Urology f/u F/u labs and cults - neg so far Local wound care D/w nursing WANDA STACY MD Oct 15, 2019 10:58
[2019-10-15 11:00] VITALS: BP 145/88
--- NOTE | 2019-10-15 11:29 | PDOC ---
Subjective: Subjective: Family says was supposed to have central line placed yesterday. Objective: Objective: D/w nurse - unable to draw labs x 3 today. D/w Dr. Gonzalez. Vital Signs: Vital Signs Date Time Temp Pulse Resp B/P (MAP) Pulse Ox O2 Delivery O2 Flow Rate FiO2 10/15/19 07:00 97.4 91 20 147/55 (85) 100 Nasal Cannula 2.0 97.4 Labs: Laboratory Tests Test 10/14/19 16:35 10/14/19 18:14 10/14/19 20:32 10/15/19 03:27 Glucose (Fingerstick) 405 mg/dL 363 mg/dL 295 mg/dL 287 mg/dL Test 10/15/19 05:46 Glucose (Fingerstick) 240 mg/dL BLOOD CULTURE Final NO GROWTH AFTER 5 DAYS Imaging: Extremity Arterial Study Impression: Occlusion of the distal brachiocephalic fistula. Thrombus within the cephalic venous portion of the fistula outflow region. Abd US Impression: Small amount of ascites in the right lower quadrant noted. No biliary dilatation. Videoswallow not completed 10/14 due to pt unable to participate in study w/intake of barium given c/o "I feel like I'm going to throw up." Offered cold cloth and basin. Sensation did not pass and after several minutes pt was transported back to and placed in bed. Brother not present. RN Rosmery informed. PLAN: Will f/u 10/15 re: pt status and whether videoswallow remains indicated. PE: GEN: NAD, family present LUNGS: clear anteriorly HEART: RRR ABD: soft, non-tender, PD cath NEURO/PSYCH: flat affect A/P: Encephalopathy - better Dysphagia ESRD on PD, ACD Elevated Alk Phos and GGT - normal liver on US H/o GERD and bezoar - on PPI -- Plans for PEG eventually when transitioned to HD from PD. Hemodynamically unstable?: No Is patient in severe pain?: No Is NPO status required?: Yes PADILLA HONG Oct 15, 2019 11:29 KINGS FREGOSO MD Oct 15, 2019 11:38
--- NOTE | 2019-10-15 11:49 | PDOC ---
Renal-Progress Notes Subjective Notes Notes TIRED, NOT ABLE TO EAT History of Present Illness Hx of present illness NO CHANGE Vitals Vitals Vital Signs Date Time Temp Pulse Resp B/P (MAP) Pulse Ox O2 Delivery O2 Flow Rate FiO2 10/15/19 07:00 97.4 91 20 147/55 (85) 100 Nasal Cannula 2.0 97.4 Weight Weight [ ] I.O. Intake and Output Intake and Output 10/15/19 07:00 Intake Total 0 ml Output Total 0 ml Balance 0 ml Intake Oral 0 ml Output Urine Total 0 ml Labs Labs Laboratory Tests Test 10/14/19 16:35 10/14/19 18:14 10/14/19 20:32 10/15/19 03:27 Glucose (Fingerstick) 405 mg/dL (70-99) 363 mg/dL (70-99) 295 mg/dL (70-99) 287 mg/dL (70-99) Test 10/15/19 05:46 Glucose (Fingerstick) 240 mg/dL (70-99) Micro Micro Microbiology 10/12/19 Blood Culture - Preliminary, Resulted NO GROWTH AFTER 2 DAYS 10/08/19 Aerobic Culture - Final, Complete 10/08/19 Aerobic Culture Result 1 (HEATHER) - Final, Complete 10/08/19 Gram Stain - Final, Complete 10/08/19 Gram Stain Result 1 (HEATHER) - Final, Complete 10/08/19 Gram Stain Result 2 (HEATHER) - Final, Complete Review of Systems Constitutional: yes: alert, oriented Ears/Nose/Throat: Yes: no symptom reported Eyes: Yes: no symptom reported Pulmonary: Yes no symptom reported Gastrointestional: Yes: nausea, constipation Genitourinary: Yes: no symptom reported Musculoskeletal: Yes: muscle stiffness Skin: Yes no symptom reported Psychiatric/Neurological: Yes: no symptom reported Endocrine: Yes: no symptom reported Physical Exam General Appearance: no apparent distress Skin: warm Respiratory: decreased breath sounds Heart: S1S2, no thrills Abdomen: soft, bowel sounds present Genitourinary: bladder flat Extremities: pulses present Neurology: alert, oriented Musculoskeletal: Osteoarthritis Assessment Assessment IMP ESRD LEUCOCYTOSIS FAILURE TO THRIVE ON PD ENCEPHALOPATHY-IMPROVED CHRONIC BALANITIS DM II WITH DKA ANEMIA OF ESRD DECONDITIONING DYSPHAGIA PAD PLAN WILL ASK IR TO PLACE TUNNELED HD CATHETER WILL THEN ASK SURGERY TO REMOVE PD CATHETER WILL NEED PEG ONCE PD CATHETER IS OUT CONT PPN FOR NOW UPDATED FAMILY START ARCHIE HANSEN MD Oct 15, 2019 11:49
[2019-10-15] MEDS: MEROPENEM 500 MG in IV NORMAL SALINE 50ML 50 ML IV SCH ×3 (11:57→23:39)
--- NOTE | 2019-10-15 12:01 | RAD ---
EXAM: Modified barium swallow. HISTORY: Dysphagia. FINDINGS: Barium contrast material was administered orally and multiple consistencies under the direction of speech pathology, and followed in its course during swallowing with video fluoroscopy. A fluoroscopic image and multiple videofluoroscopic clips were obtained. Fluoroscopy time 3.9 minutes. The radiologist was present for the entire imaging procedure. There was laryngeal penetration to the cords with thin liquids and residue from all consistencies. There was no gross aspiration. IMPRESSION: 1. Laryngeal penetration with all liquid consistencies as above. Refer to the full report by speech pathology for more detail. Electronically signed by: Reilly Lucio MD (10/15/2019 11:58 AM) [facility]
--- NOTE | 2019-10-15 12:54 | PDOC2 ---
TYRONE MIDDLETON Laura LOSS PREVENTION LEADER 10/15/19 1254: CONSULT Date of Consult Date of Consult DATE: 10/15/19 TIME: 12:46 Reason for Consult Reason for Consult: pd removal Referring Physician Referring Physician: Dr cummings Identification/Chief Complaint Chief Complaint AMS Source Source: Caregiver, Chart review, Patient History of Present Illness Reason for Visit: Admitted with hyperglycemia and AMS--apparently was found in feces, nephrology concerned for poor compliance and risk of peritonitis with social/living issues so planning to switch to HD.. On admission has failed swallow and needs peg placed, GI awaiting PEG until PD cath removed. Past Medical History Cardiovascular: CAD, HTN, [place], Hyperlipidemia Pulmonary: COPD CENTRAL NERVOUS SYSTEM: Periperal neuropathy GI: Constipation Heme/Onc: Anemia NOS Psych: Anxiety, Depression Musculoskeletal: Osteoarthritis Renal/: Chronic renal failure ( peritoneal dialysis), Other (balanitis) Endocrine: Diabetes ( type I) Past Surgical History Past Surgical History: Other ( coronary angioplasty, dialysis center, peritoneal dialysis catheter, arthroscopic knee, fasciotomy, facial fractures, left foot, sinus) Family History Family History: Cancer Social History 2 packs per day ALCOHOL: other (past heavy alcohol use) Drugs: Other (past drug use) Lives: with Family Current Medications Current Medications Current Medications Ondansetron HCl (Zofran) 4 mg PRN Q4HRS PRN IV NAUSEA/VOMITING; Start 10/08/19 at 16:30 Acetaminophen (Tylenol) 650 mg PRN Q4HRS PRN PO TEMP OVER 100.4F OR MILD PAIN; Start 10/08/19 at 16:30 Docusate Sodium (Colace) 100 mg PRN BID PRN PO CONSTIPATION; Start 10/08/19 at 16:30 Insulin Human Lispro (HumaLOG) 0-7 UNITS TIDACHC SQ Last administered on 10/14/19at 18:25; Start 10/08/19 at 21:00 Dextrose (Dextrose 50%-Water Syringe) 12.5 gm PRN Q15MIN PRN IV SEE COMMENTS Last administered on 10/08/19at 21:05; Start 10/08/19 at 17:00 Dextrose (Iv Dextrose 5%) 250 ml PRN Q15MIN PRN IV SEE COMMENTS; Start 10/08/19 at 17:00 Aspirin (Ecotrin) 81 mg DAILYWBKFT PO Last administered on 10/10/19at 10:10; Start 10/09/19 at 08:00 Atorvastatin Calcium (Lipitor) 40 mg HS PO Last administered on 10/09/19at 21:30; Start 10/08/19 at 21:00 Furosemide (Lasix) 80 mg BID94 PO Last administered on 10/10/19at 16:15; Start 10/08/19 at 18:00 Lactobacillus Rhamnosus (Culturelle) 1 cap BID PO Last administered on 10/10/19at 10:09; Start 10/08/19 at 21:00 Montelukast Sodium (Singulair) 10 mg HS PRN PO ALLERGIES; Start 10/08/19 at 17:00 Ondansetron HCl (Zofran Odt) 4 mg PRN Q6HRS PRN PO NAUSEA; Start 10/08/19 at 17:00 Tamsulosin HCl (Flomax) 0.4 mg HS PO Last administered on 10/09/19at 21:30; Start 10/08/19 at 21:00 Tramadol HCl (Ultram) 50 mg PRN Q6HRS PRN PO MODERATE PAIN; Start 10/08/19 at 17:00; Stop 10/12/19 at 11:56; Status DC Insulin Glargine (Lantus Syringe) 10 unit QHS SQ Last administered on 10/14/19at 22:14; Start 10/08/19 at 21:00 Losartan Potassium (Cozaar) 100 mg HS PO Last administered on 10/09/19at 21:30; Start 10/08/19 at 21:00 Pantoprazole Sodium (Protonix) 40 mg DAILYAC PO Last administered on 10/10/19at 10:10; Start 10/09/19 at 07:30; Stop 10/12/19 at 09:54; Status DC Sodium Chloride 500 ml @ 500 mls/hr 1X ONCE IV Last administered on 10/08/19at 20:00; Start 10/08/19 at 20:00; Stop 10/08/19 at 20:59; Status DC Calcium Acetate (Phoslo) 1,334 mg TIDWMEALS PO Last administered on 10/10/19at 17:35; Start 10/08/19 at 20:00 Vitamin A/Vitamin D (Vitamin A & D Ointment) 1 lucero PRN Q1HR PRN TP SKIN PROTECTION; Start 10/09/19 at 09:00 Doxycycline Hyclate (Vibra-Tab) 100 mg BID PO Last administered on 10/10/19at 10:08; Start 10/09/19 at 11:00; Stop 10/10/19 at 10:21; Status DC Fluconazole (Diflucan) 100 mg DAILY PO Last administered on 10/10/19at 10:08; Start 10/09/19 at 10:30; Stop 10/12/19 at 11:57; Status DC Amoxicillin/ Clavulanate Potassium (Augmentin 500/ 125mg) 1 tab DAILY PO Last administered on 10/10/19at 10:08; Start 10/09/19 at 10:30; Stop 10/10/19 at 10:21; Status DC Vancomycin HCl (Vanco Per Pharmacy) 1 each PRN DAILY PRN MC SEE COMMENTS Last administered on 10/11/19at 15:08; Start 10/10/19 at 10:30; Stop 10/12/19 at 11:56; Status DC Piperacillin Sod/ Tazobactam Sod 2.25 gm/Sodium Chloride 50 ml @ 100 mls/hr Q8HRS IV Last administered on 10/11/19at 22:06; Start 10/10/19 at 11:00; Stop 10/12/19 at 11:56; Status DC Vancomycin HCl 1.5 gm/Sodium Chloride 500 ml @ 250 mls/hr 1X ONCE IV Last administered on 10/10/19at 16:14; Start 10/10/19 at 11:00; Stop 10/10/19 at 12:59; Status DC Vancomycin HCl (Vancomycin Random Level) 1 each 1X ONCE MC Last administered on 10/12/19at 05:00; Start 10/12/19 at 05:00; Stop 10/12/19 at 05:01; Status DC Acetaminophen (Tylenol Supp) 650 mg PRN Q6HRS PRN NM MILD PAIN / TEMP; Start 10/12/19 at 06:00 Pantoprazole Sodium (PROTONIX VIAL for IV PUSH) 40 mg DAILYAC IVP Last administered on 10/15/19at 08:46; Start 10/12/19 at 10:00 Meropenem 500 mg/ Sodium Chloride 50 ml @ 100 mls/hr Q8HRS IV Last administered on 10/13/19at 06:00; Start 10/12/19 at 13:00; Stop 10/13/19 at 13:10; Status DC Micafungin Sodium 100 mg/Dextrose 100 ml @ 100 mls/hr Q24H IV Last administered on 10/14/19at 18:48; Start 10/12/19 at 12:00 Linezolid/Dextrose 300 ml @ 300 mls/hr Q12HR IV Last administered on 10/15/19at 08:45; Start 10/12/19 at 12:00 Amino Acids/ Electrolytes/ Dextrose 1,000 ml @ 80 mls/hr [id number] IV Last administered on 10/15/19at 08:46; Start 10/12/19 at 16:30 Heparin Sodium (Porcine) (Heparin Sodium) 5,000 unit Q8HRS SQ Last administered on 10/15/19at 06:26; Start 10/13/19 at 06:00 Insulin Human Lispro (HumaLOG) 21 units 1X ONCE SQ Last administered on 10/13/19at 09:26; Start 10/13/19 at 09:30; Stop 10/13/19 at 09:31; Status DC Insulin Human Lispro (HumaLOG) 4 units Q6HRS SQ Last administered on 10/15/19at 06:27; Start 10/13/19 at 12:00 Meropenem 500 mg/ Sodium Chloride 50 ml @ 100 mls/hr Q12HR IV Last administer ed on 10/15/19at 11:57; Start 10/13/19 at 21:00 Barium Sulfate (Varibar Thin Liquid Apple) 148 gm 1X ONCE PO ; Start 10/14/19 at 11:30; Stop 10/14/19 at 11:31; Status DC Barium Sulfate (Varibar Thin Liquid Apple) 148 gm 1X ONCE PO Last administered on 10/15/19at 11:10; Start 10/15/19 at 10:00; Stop 10/15/19 at 10:02; Status DC Darbepoetin Zaid (ARANESP for DIALYSIS PTS) 60 mcg WEEKLYHS SQ ; Start 10/15/19 at 21:00 Active Scripts Active Tramadol Hcl 50 Mg Tablet 50 Mg PO PRN Q6HRS PRN 3 Days Culturelle (Lactobacillus Rhamnosus Gg) 1 Each Cap.sprink 1 Cap PO BID 7 Days [Fluconazole] 100 MG Tablet 100 Mg PO DAILY 7 Days Doxycycline Hyclate 100 Mg Tablet 100 Mg PO BID 7 Days Amox Tr-K Clv 500-125 Mg Tab (Amoxicillin/Potassium Clav) 1 Each Tablet 1 Tab PO DAILY 7 Days Aspirin Ec (Aspirin) 81 Mg Tablet.dr 81 Mg PO DAILYWBKFT Reported Glyburide 5 Mg Tablet 5 Mg PO DAILY Lantus Solostar (Insulin Glargine,Hum.rec.anlog) 100 Unit/1 Ml Insuln.pen 10 Unit SQ QHS Humalog (Insulin Lispro) 100 Unit/1 Ml Cartridge 100 Unit SQ TIDWMEALS Omeprazole 20 Mg Tablet.dr 20 Mg PO DAILY Calcitriol 0.5 Mcg Capsule 0.5 Mcg PO DAILY Furosemide 80 Mg Tablet 80 Mg PO BID Glucagen (Glucagon,Human Recombinant) 1 Mg Vial 1 PRN PRN Tamsulosin Hcl 0.4 Mg Cap.er.24h 1 Cap PO HS Montelukast Sodium Tablet (Montelukast Sodium) 10 Mg Tablet 1 Tab PO HS PRN Ondansetron Odt (Ondansetron) 4 Mg Tab.rapdis 1 Tab PO PRN Q6-8HRS PRN Lantus Solostar (Insulin Glargine,Hum.rec.anlog) 100 Unit/1 Ml Insuln.pen 11 Unit SQ QHS Humalog (Insulin Lispro) 100 Unit/1 Ml Cartridge 22 Unit SQ TIDWMEALS Cozaar (Losartan Potassium) 100 Mg Tablet 100 Mg PO HS Carvedilol 25 Mg Tablet 25 Mg PO BIDWMEALS Atorvastatin Calcium 40 Mg Tablet 40 Mg PO HS Amlodipine Besylate 10 Mg Tablet 10 Mg PO DAILY Allergies Allergies: Coded Allergies: lamotrigine (Verified Allergy, Severe, HIVES, SHORTNESS OF BREATH, 08/27/19) ROS General: No: Chills, Other (fevers ) PSYCHOLOGICAL ROS: YES: Memory difficulties; No: Anxiety Eyes: No Blurry vision, No Double vision HEENT: No: Heacaches, Sore Throat Hematological and Lymphatic: No: Bleeding Problems, Blood Clots Respiratory: No: Cough, SOB with excertion Cardiovascular: No Chest Pain, No Palpitations Gastrointestinal: No Nausea, No Abdominal Pain Genitourinary: No Hematuria, No Retention Musculoskeletal: Yes Joint Stiffness, Yes Muscular Weakness Neurological: Yes Memory Loss; No Seizures Skin: No Pruritus, No Rash Physical Exam General: Alert, Cooperative, No acute distress HEENT: Atraumatic, Mucous membr. moist/pink Lungs: Clear to auscultation, Normal air movement Heart: Regular rate, Normal S1, Normal S2 Abdomen: Soft, Other (PD cath in place) Extremities: No clubbing, No cyanosis Skin: No rashes, No breakdown Neuro: Normal speech, Sensation intact MUSCULOSKELETAL: No deformity, No swelling Vitals VITALS Vital Signs Date Time Temp Pulse Resp B/P (MAP) Pulse Ox O2 Delivery O2 Flow Rate FiO2 10/15/19 07:00 97.4 91 20 147/55 (85) 100 Nasal Cannula 2.0 97.4 Labs Labs Laboratory Tests Test 10/13/19 16:15 10/13/19 18:45 10/13/19 21:26 10/14/19 07:05 Glucose (Fingerstick) 166 mg/dL (70-99) 71 mg/dL (70-99) 166 mg/dL (70-99) White Blood Count 11.7 x10^3/uL (4.0-11.0) Red Blood Count 2.96 x10^6/uL (4.30-5.70) Hemoglobin 8.9 g/dL (13.0-17.5) Hematocrit 28.4 % (39.0-53.0) Mean Corpuscular Volume 96 fL (79-100) Mean Corpuscular Hemoglobin 30 pg (25-35) Mean Corpuscular Hemoglobin Concent 31 g/dL (31-37) Red Cell Distribution Width 17.0 % (11.5-14.5) Platelet Count 269 x10^3/uL (140-400) Neutrophils (%) (Auto) 83 % (31-73) Lymphocytes (%) (Auto) 9 % (24-48) Monocytes (%) (Auto) 6 % (0-9) Eosinophils (%) (Auto) 2 % (0-3) Basophils (%) (Auto) 1 % (0-3) Neutrophils # (Auto) 9.7 x10^3/uL (1.8-7.7) Lymphocytes # (Auto) 1.1 x10^3/uL (1.0-4.8) Monocytes # (Auto) 0.7 x10^3/uL (0.0-1.1) Eosinophils # (Auto) 0.2 x10^3/uL (0.0-0.7) Basophils # (Auto) 0.1 x10^3/uL (0.0-0.2) Sodium Level 134 mmol/L (136-145) Potassium Level 4.6 mmol/L (3.5-5.1) Chloride Level 96 mmol/L (98-107) Carbon Dioxide Level 29 mmol/L (21-32) Anion Gap 9 (6-14) Blood Urea Nitrogen 66 mg/dL (8-26) Creatinine 8.4 mg/dL (0.7-1.3) Estimated GFR (Cockcroft-Gault) 6.7 Glucose Level 90 mg/dL (70-99) Calcium Level 8.5 mg/dL (8.5-10.1) Phosphorus Level 8.9 mg/dL (2.6-4.7) Albumin 0.7 g/dL (3.4-5.0) Test 10/14/19 11:02 10/14/19 16:35 10/14/19 18:14 10/14/19 20:32 Glucose (Fingerstick) 255 mg/dL (70-99) 405 mg/dL (70-99) 363 mg/dL (70-99) 295 mg/dL (70-99) Test 10/15/19 03:27 10/15/19 05:46 10/15/19 11:52 Glucose (Fingerstick) 287 mg/dL (70-99) 240 mg/dL (70-99) 126 mg/dL (70-99) Laboratory Tests Test 10/14/19 16:35 10/14/19 18:14 10/14/19 20:32 10/15/19 03:27 Glucose (Fingerstick) 405 mg/dL (70-99) 363 mg/dL (70-99) 295 mg/dL (70-99) 287 mg/dL (70-99) Test 10/15/19 05:46 10/15/19 11:52 Glucose (Fingerstick) 240 mg/dL (70-99) 126 mg/dL (70-99) Assessment/Plan Assessment/Plan will plan removal of PD cath tomorrow with Dr Wall hold lovenox today KINGS WALL MD 10/16/19 7959: CONSULT Assessment/Plan Assessment/Plan Agree with above TYRONE MIDDLETON APRN Oct 15, 2019 12:54 KINGS WALL MD Oct 16, 2019 16:47
[2019-10-15] MEDS ORDERED: LIDOCAINE 1%/EPI 1:100,000 20 ML VIAL. ONE (13:16)
[2019-10-15] MEDS ORDERED: LABETALOL 20 MG/4 ML DISP.SYRIN. IVP PRN (13:45)
--- NOTE | 2019-10-15 14:26 | PDOC ---
PROGRESS NOTES Chief Complaint Chief Complaint A/P: Acute encephalopathy - metabolic 2/2 DKA and toxic 2/2 likely infectious etiology. Still somewhat confused DKA, type 2 - off insulin GTT. will repeat BMP, able to eat, lantus tonight. Elevated alkaline phosphatase level - will monitor, no biliary problems previously Lactic acidosis - likely due to diabetes mellitus. Will trend Penile cellulitis - present on admission, likely from failure to f/u outpatient - Doxy and augmentin with fluconazole previously. Will culture and consult ID ESRD on HD transitioning to PD prior to his admission - tolerating well. Will consult nephrology Sepsis - from penile cellulitis as etiology, f/u cultures. Previously with coag negative staph on PD culture. F/u repeat culture HTN - cont meds DM type 2 insulin requiring - now hyperglycemic, previously with hypoglycemic event - hypoglycemia protocol. Cont insulin basal bolus plus once out of DKA Severe protein calorie malnutrition - unclear etiology, albumin 1.2, definitely has inconsistent PO intake. 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 U/S shows no abscess - painless ulcer concerning. Syphilis testing negative previously. Wound care to see Gait instability - needs further PT Anemia - of chronic renal disease Hyperphosphatemia - likely related to phos binder compliance difficulties. Will add phos binder, d/w nephrology History of Present Illness History of Present Illness failed video swallow BP high Came form home with brother and admantly refuses SNU or [facility] To get central line (on multiple IV abx and anti fungaL) To get tunneled HD cath PLAn: IV centra, line, tunneled cath Add PT OT Add prn labetolol GI on board and mentios PEg - dw PANTERA tracey I kept po meds since if peg, will be able to resume BP meds Procalamine meantime? FULL CODE Vitals Vitals Vital Signs Date Time Temp Pulse Resp B/P (MAP) Pulse Ox O2 Delivery O2 Flow Rate FiO2 10/15/19 11:00 97.4 91 20 145/88 (107) 96 Room Air 97.4 10/15/19 07:00 2.0 Physical Exam Physical Exam GENERAL: Alert today. in bed - NAD - coop HEENT: Normocephalic, atraumatic, anicteric. No thrush. NECK: No tenderness. Supple, no JVD, LUNGS: Clear. HEART: S1, S2. ABDOMEN: Soft. PD catheter in place, nontender, nondistended. GENITOURINARY: Penile swelling, min redness with eschar like lesion,, No purulence noted - No drainage today - still painful EXTREMITIES: no pedal edema/swelling/joint pain or erythema SKIN: Dry skin. No cyanosis.superficial skin erythema on back pressure changes NEUROLOGIC:Answering questions well. appropriate PSYCHIATRIC flat General: Alert, Cooperative, No acute distress Heart: Regular rate, Normal S1, Normal S2 Lungs: Clear, Other Abdomen: Soft, Other (PD cath in place) Extremities: No clubbing, No cyanosis Skin: No rashes, No breakdown Labs LABS Laboratory Tests Test 10/14/19 16:35 10/14/19 18:14 10/14/19 20:32 10/15/19 03:27 Glucose (Fingerstick) 405 mg/dL (70-99) 363 mg/dL (70-99) 295 mg/dL (70-99) 287 mg/dL (70-99) Test 10/15/19 05:46 10/15/19 11:52 Glucose (Fingerstick) 240 mg/dL (70-99) 126 mg/dL (70-99) Review of Systems Review of Systems weak, thirsty, all else neg 14 pt Comment Review of Relevant I have reviewed the following items alex (where applicable) has been applied. Labs Laboratory Tests Test 10/13/19 16:15 10/13/19 18:45 10/13/19 21:26 10/14/19 07:05 Glucose (Fingerstick) 166 mg/dL (70-99) 71 mg/dL (70-99) 166 mg/dL (70-99) White Blood Count 11.7 x10^3/uL (4.0-11.0) Red Blood Count 2.96 x10^6/uL (4.30-5.70) Hemoglobin 8.9 g/dL (13.0-17.5) Hematocrit 28.4 % (39.0-53.0) Mean Corpuscular Volume 96 fL (79-100) Mean Corpuscular Hemoglobin 30 pg (25-35) Mean Corpuscular Hemoglobin Concent 31 g/dL (31-37) Red Cell Distribution Width 17.0 % (11.5-14.5) Platelet Count 269 x10^3/uL (140-400) Neutrophils (%) (Auto) 83 % (31-73) Lymphocytes (%) (Auto) 9 % (24-48) Monocytes (%) (Auto) 6 % (0-9) Eosinophils (%) (Auto) 2 % (0-3) Basophils (%) (Auto) 1 % (0-3) Neutrophils # (Auto) 9.7 x10^3/uL (1.8-7.7) Lymphocytes # (Auto) 1.1 x10^3/uL (1.0-4.8) Monocytes # (Auto) 0.7 x10^3/uL (0.0-1.1) Eosinophils # (Auto) 0.2 x10^3/uL (0.0-0.7) Basophils # (Auto) 0.1 x10^3/uL (0.0-0.2) Sodium Level 134 mmol/L (136-145) Potassium Level 4.6 mmol/L (3.5-5.1) Chloride Level 96 mmol/L (98-107) Carbon Dioxide Level 29 mmol/L (21-32) Anion Gap 9 (6-14) Blood Urea Nitrogen 66 mg/dL (8-26) Creatinine 8.4 mg/dL (0.7-1.3) Estimated GFR (Cockcroft-Gault) 6.7 Glucose Level 90 mg/dL (70-99) Calcium Level 8.5 mg/dL (8.5-10.1) Phosphorus Level 8.9 mg/dL (2.6-4.7) Albumin 0.7 g/dL (3.4-5.0) Test 10/14/19 11:02 10/14/19 16:35 10/14/19 18:14 10/14/19 20:32 Glucose (Fingerstick) 255 mg/dL (70-99) 405 mg/dL (70-99) 363 mg/dL (70-99) 295 mg/dL (70-99) Test 10/15/19 03:27 10/15/19 05:46 10/15/19 11:52 Glucose (Fingerstick) 287 mg/dL (70-99) 240 mg/dL (70-99) 126 mg/dL (70-99) Laboratory Tests Test 10/14/19 16:35 10/14/19 18:14 10/14/19 20:32 10/15/19 03:27 Glucose (Fingerstick) 405 mg/dL (70-99) 363 mg/dL (70-99) 295 mg/dL (70-99) 287 mg/dL (70-99) Test 10/15/19 05:46 10/15/19 11:52 Glucose (Fingerstick) 240 mg/dL (70-99) 126 mg/dL (70-99) Microbiology 10/12/19 Blood Culture - Preliminary, Resulted NO GROWTH AFTER 3 DAYS 10/08/19 Aerobic Culture - Final, Complete 10/08/19 Aerobic Culture Result 1 (HEATHER) - Final, Complete 10/08/19 Gram Stain - Final, Complete 10/08/19 Gram Stain Result 1 (HEATHER) - Final, Complete 10/08/19 Gram Stain Result 2 (HEATHER) - Final, Complete Medications Current Medications Ondansetron HCl (Zofran) 4 mg PRN Q4HRS PRN IV NAUSEA/VOMITING; Start 10/08/19 at 16:30 Acetaminophen (Tylenol) 650 mg PRN Q4HRS PRN PO TEMP OVER 100.4F OR MILD PAIN; Start 10/08/19 at 16:30 Docusate Sodium (Colace) 100 mg PRN BID PRN PO CONSTIPATION; Start 10/08/19 at 16:30 Insulin Human Lispro (HumaLOG) 0-7 UNITS TIDACHC SQ Last administered on 10/14/19at 18:25; Start 10/08/19 at 21:00 Dextrose (Dextrose 50%-Water Syringe) 12.5 gm PRN Q15MIN PRN IV SEE COMMENTS Last administered on 10/08/19at 21:05; Start 10/08/19 at 17:00 Dextrose (Iv Dextrose 5%) 250 ml PRN Q15MIN PRN IV SEE COMMENTS; Start 10/08/19 at 17:00 Aspirin (Ecotrin) 81 mg DAILYWBKFT PO Last administered on 10/10/19at 10:10; Start 10/09/19 at 08:00 Atorvastatin Calcium (Lipitor) 40 mg HS PO Last administered on 10/09/19at 21:30; Start 10/08/19 at 21:00 Furosemide (Lasix) 80 mg BID94 PO Last administered on 10/10/19at 16:15; Start 10/08/19 at 18:00; Stop 10/15/19 at 13:33; Status DC Lactobacillus Rhamnosus (Culturelle) 1 cap BID PO Last administered on 10/10/19at 10:09; Start 10/08/19 at 21:00 Montelukast Sodium (Singulair) 10 mg HS PRN PO ALLERGIES; Start 10/08/19 at 17:00 Ondansetron HCl (Zofran Odt) 4 mg PRN Q6HRS PRN PO NAUSEA; Start 10/08/19 at 17:00; Stop 10/15/19 at 13:33; Status DC Tamsulosin HCl (Flomax) 0.4 mg HS PO Last administered on 10/09/19at 21:30; Start 10/08/19 at 21:00 Tramadol HCl (Ultram) 50 mg PRN Q6HRS PRN PO MODERATE PAIN; Start 10/08/19 at 17:00; Stop 10/12/19 at 11:56; Status DC Insulin Glargine (Lantus Syringe) 10 unit QHS SQ Last administered on 10/14/19at 22:14; Start 10/08/19 at 21:00 Losartan Potassium (Cozaar) 100 mg HS PO Last administered on 10/09/19at 21:30; Start 10/08/19 at 21:00 Pantoprazole Sodium (Protonix) 40 mg DAILYAC PO Last administered on 10/10/19at 10:10; Start 10/09/19 at 07:30; Stop 10/12/19 at 09:54; Status DC Sodium Chloride 500 ml @ 500 mls/hr 1X ONCE IV Last administered on 10/08/19at 20:00; Start 10/08/19 at 20:00; Stop 10/08/19 at 20:59; Status DC Calcium Acetate (Phoslo) 1,334 mg TIDWMEALS PO Last administered on 10/10/19at 17:35; Start 10/08/19 at 20:00 Vitamin A/Vitamin D (Vitamin A & D Ointment) 1 lucero PRN Q1HR PRN TP SKIN PROTECTION; Start 10/09/19 at 09:00 Doxycycline Hyclate (Vibra-Tab) 100 mg BID PO Last administered on 10/10/19at 10:08; Start 10/09/19 at 11:00; Stop 10/10/19 at 10:21; Status DC Fluconazole (Diflucan) 100 mg DAILY PO Last administered on 10/10/19at 10:08; Start 10/09/19 at 10:30; Stop 10/12/19 at 11:57; Status DC Amoxicillin/ Clavulanate Potassium (Augmentin 500/ 125mg) 1 tab DAILY PO Last administered on 10/10/19at 10:08; Start 10/09/19 at 10:30; Stop 10/10/19 at 10:21; Status DC Vancomycin HCl (Vanco Per Pharmacy) 1 each PRN DAILY PRN MC SEE COMMENTS Last administered on 10/11/19at 15:08; Start 10/10/19 at 10:30; Stop 10/12/19 at 11:56; Status DC Piperacillin Sod/ Tazobactam Sod 2.25 gm/Sodium Chloride 50 ml @ 100 mls/hr Q8HRS IV Last administered on 10/11/19at 22:06; Start 10/10/19 at 11:00; Stop 10/12/19 at 11:56; Status DC Vancomycin HCl 1.5 gm/Sodium Chloride 500 ml @ 250 mls/hr 1X ONCE IV Last ad ministered on 10/10/19at 16:14; Start 10/10/19 at 11:00; Stop 10/10/19 at 12:59; Status DC Vancomycin HCl (Vancomycin Random Level) 1 each 1X ONCE MC Last administered on 10/12/19at 05:00; Start 10/12/19 at 05:00; Stop 10/12/19 at 05:01; Status DC Acetaminophen (Tylenol Supp) 650 mg PRN Q6HRS PRN SC MILD PAIN / TEMP; Start 10/12/19 at 06:00 Pantoprazole Sodium (PROTONIX VIAL for IV PUSH) 40 mg DAILYAC IVP Last administered on 10/15/19at 08:46; Start 10/12/19 at 10:00 Meropenem 500 mg/ Sodium Chloride 50 ml @ 100 mls/hr Q8HRS IV Last administered on 10/13/19at 06:00; Start 10/12/19 at 13:00; Stop 10/13/19 at 13:10; Status DC Micafungin Sodium 100 mg/Dextrose 100 ml @ 100 mls/hr Q24H IV Last administered on 10/14/19at 18:48; Start 10/12/19 at 12:00 Linezolid/Dextrose 300 ml @ 300 mls/hr Q12HR IV Last administered on 10/15/19at 08:45; Start 10/12/19 at 12:00 Amino Acids/ Electrolytes/ Dextrose 1,000 ml @ 80 mls/hr [id number] IV Last administered on 10/15/19at 08:46; Start 10/12/19 at 16:30 Heparin Sodium (Porcine) (Heparin Sodium) 5,000 unit Q8HRS SQ Last administered on 10/15/19at 06:26; Start 10/13/19 at 06:00; Stop 10/15/19 at 13:03; Status DC Insulin Human Lispro (HumaLOG) 21 units 1X ONCE SQ Last administered on 10/13/19at 09:26; Start 10/13/19 at 09:30; Stop 10/13/19 at 09:31; Status DC Insulin Human Lispro (HumaLOG) 4 units Q6HRS SQ Last administered on 10/15/19at 06:27; Start 10/13/19 at 12:00 Meropenem 500 mg/ Sodium Chloride 50 ml @ 100 mls/hr Q12HR IV Last administered on 10/14/19at 21:58; Start 10/13/19 at 21:00 Barium Sulfate (Varibar Thin Liquid Apple) 148 gm 1X ONCE PO ; Start 10/14/19 at 11:30; Stop 10/14/19 at 11:31; Status DC Barium Sulfate (Varibar Thin Liquid Apple) 148 gm 1X ONCE PO Last administered on 10/15/19at 11:10; Start 10/15/19 at 10:00; Stop 10/15/19 at 10:02; Status DC Darbepoetin Zaid (ARANESP for DIALYSIS PTS) 60 mcg WEEKLYHS SQ ; Start 10/15/19 at 21:00 Lidocaine/ Epinephrine (LIDOCAINE 1%-EPI 1:100,000 Multi-Dose) 20 ml STK-MED ONCE .ROUTE ; Start 10/15/19 at 13:16; Stop 10/15/19 at 13:17; Status DC Furosemide (Lasix) 80 mg BID92 IVP ; Start 10/15/19 at 14:00 Labetalol HCl (Normodyne Iv Push) 10 mg PRN Q2HR PRN IVP HYPERTENSION; Start 10/15/19 at 13:45 Ondansetron HCl (Zofran) 4 mg PRN Q6HRS PRN IV NAUSEA/VOMITING; Start 10/16/19 at 07:00; Stop 10/17/19 at 06:59 Fentanyl Citrate (Fentanyl 2ml Vial) 25 mcg PRN Q5MIN PRN IV MILD PAIN 1-3; Start 10/16/19 at 07:00; Stop 10/17/19 at 06:59 Fentanyl Citrate (Fentanyl 2ml Vial) 50 mcg PRN Q5MIN PRN IV MODERATE TO SEVERE PAIN; Start 10/16/19 at 07:00; Stop 10/17/19 at 06:59 Morphine Sulfate (Morphine Sulfate) 1 mg PRN Q10MIN PRN IV SEVERE PAIN 7-10; Start 10/16/19 at 07:00; Stop 10/17/19 at 06:59 Ringer's Solution 1,000 ml @ 30 mls/hr Q24H IV ; Start 10/16/19 at 07:00; Stop 10/16/19 at 18:59 Lidocaine HCl (Xylocaine-Mpf 1% 2ml Vial) 2 ml PRN 1X PRN ID PRIOR TO IV START; Start 10/16/19 at 07:00; Stop 10/17/19 at 06:59 Hydromorphone HCl (Dilaudid) 0.5 mg PRN Q10MIN PRN IV SEV PAIN, Second choice; Start 10/16/19 at 07:00; Stop 10/17/19 at 06:59 Prochlorperazine Edisylate (Compazine) 5 mg PACU PRN PRN IV NAUSEA, MRX1; Start 10/16/19 at 07:00; Stop 10/17/19 at 06:59 Active Scripts Active Tramadol Hcl 50 Mg Tablet 50 Mg PO PRN Q6HRS PRN 3 Days Culturelle (Lactobacillus Rhamnosus Gg) 1 Each Cap.sprink 1 Cap PO BID 7 Days [Fluconazole] 100 MG Tablet 100 Mg PO DAILY 7 Days Doxycycline Hyclate 100 Mg Tablet 100 Mg PO BID 7 Days Amox Tr-K Clv 500-125 Mg Tab (Amoxicillin/Potassium Clav) 1 Each Tablet 1 Tab PO DAILY 7 Days Aspirin Ec (Aspirin) 81 Mg Tablet. 81 Mg PO DAILYWBKFT Reported Glyburide 5 Mg Tablet 5 Mg PO DAILY Lantus Solostar (Insulin Glargine,Hum.rec.anlog) 100 Unit/1 Ml Insuln.pen 10 Unit SQ QHS Humalog (Insulin Lispro) 100 Unit/1 Ml Cartridge 100 Unit SQ TIDWMEALS Omeprazole 20 Mg Tablet. 20 Mg PO DAILY Calcitriol 0.5 Mcg Capsule 0.5 Mcg PO DAILY Furosemide 80 Mg Tablet 80 Mg PO BID Glucagen (Glucagon,Human Recombinant) 1 Mg Vial 1 PRN PRN Tamsulosin Hcl 0.4 Mg Cap.er.24h 1 Cap PO HS Montelukast Sodium Tablet (Montelukast Sodium) 10 Mg Tablet 1 Tab PO HS PRN Ondansetron Odt (Ondansetron) 4 Mg Tab.rapdis 1 Tab PO PRN Q6-8HRS PRN Lantus Solostar (Insulin Glargine,Hum.rec.anlog) 100 Unit/1 Ml Insuln.pen 11 Unit SQ QHS Humalog (Insulin Lispro) 100 Unit/1 Ml Cartridge 22 Unit SQ TIDWMEALS Cozaar (Losartan Potassium) 100 Mg Tablet 100 Mg PO HS Carvedilol 25 Mg Tablet 25 Mg PO BIDWMEALS Atorvastatin Calcium 40 Mg Tablet 40 Mg PO HS Amlodipine Besylate 10 Mg Tablet 10 Mg PO DAILY Vitals/I & O Vital Sign - Last 24 Hours 10/14/19 10/14/19 10/14/19 10/14/19 15:44 19:00 21:00 22:36 Temp 97.6 97.7 98.2 97.6 97.7 98.2 Pulse 99 87 87 89 Resp 18 16 17 B/P (MAP) 97/41 (59) 98/79 (85) 98/79 110/38 (62) Pulse Ox 96 99 95 O2 Delivery Nasal Cannula Nasal Cannula Nasal Cannula O2 Flow Rate 2.0 2.0 2.0 10/15/19 10/15/19 10/15/19 03:00 07:00 11:00 Temp 97.6 97.4 97.4 97.6 97.4 97.4 Pulse 86 91 91 Resp 19 20 20 B/P (MAP) 149/67 (94) 147/55 (85) 145/88 (107) Pulse Ox 95 100 96 O2 Delivery Nasal Cannula Nasal Cannula Room Air O2 Flow Rate 2.0 2.0 Intake and Output 10/14/19 10/14/19 10/15/19 15:00 23:00 07:00 Intake Total 0 ml 0 ml Output Total 0 ml 0 ml Balance 0 ml 0 ml 0 ml Nutrition Consultation Dietary Evaluation: Recommendations by RD: Dietary education by RD, PPN/TPN Comments: REC continue PPN until PEG placed and able to use for nutrition REC mvi and vit c per wound protocal due to multiple skin breakdown areas - See wound assessment Expected Outcomes/Goals: to meet >75% est nutr needs Interpretation of weight loss: >5% in 1 month Malnutrition Findings: Food and Nutrition Intake (Sev: <50% est energy req 5days Body Fat Depletion (Non Severe: Mild Depletion Weight Status: Underweight Hemodynamically unstable?: No Is patient in severe pain?: No Is NPO status required?: Yes RICKIE GRAMAJO MD Oct 15, 2019 14:26
[2019-10-15] MEDS ORDERED: LIDOCAINE 1%/EPI 1:100,000 20 ML VIAL. INJ ONE (15:00)
[2019-10-15] MEDS: MICAFUNGIN 100 MG in IV DEXTROSE 5% 100ML 100 ML IV SCH (15:18)
[2019-10-15] MEDS: FUROSEMIDE 40 MG/4 ML VIAL. IVP SCH (15:24)
--- NOTE | 2019-10-15 15:35 | NUR ---
SS following up with discharge planning. Pt accepted at [facility], ; fax [phone]. SS will continue to follow for discharge planning.
--- NOTE | 2019-10-15 15:54 | RAD ---
Procedure: 1.Tunneled hemodialysis catheter placement 10/15/2019 1:49 PM 2. Placement of right internal jugular central line for IV access, Clinical Indication: End-stage renal disease, dialysis dependent. No current acceptable dialysis access. No occipital IV access with multiple IV medications. Sterility: All elements of maximal sterile barrier technique including the use of a cap, mask, sterile gown, sterile gloves, large sterile sheet, appropriate hand hygiene, and 2% chlorhexidine for cutaneous antisepsis (or acceptable alternative antiseptic per current guidelines) were followed for this procedure. Consent: The procedure was explained in its entirety to the patient or the patients designated wire rope sales representative by a member of the treatment team, including a discussion of the risks, benefits and commonly accepted alternatives to the procedure, as well as the expected consequences of no therapy whatsoever. Discussion of the risks included, but was not limited to, those that are most frequent and those that are rare but possibly severe or life-threatening, as well as the possibility of unforeseen complications. Technique and Findings: Following informed consent, a timeout procedure was performed. The patient was prepped and draped in the usual sterile fashion. Ultrasound interrogation of the right neck revealed patency and compressibility of the right internal jugular vein. A 21-gauge micropuncture was then used to gain access to this vein under ultrasound guidance. A hard copy ultrasound image was recorded. The needle was exchanged over a wire for a 4 Mauritian sheath which was used to guide an guidewire into the IVC. The skin over the right anterior chest wall was copiously anesthetized with 1% Lidocaine and a small dermatotomy was made. A 23 cm tipped cuff palindrome tunneled hemodialysis catheter was then tunneled subcutaneously towards the neck dermatotomy and deployed through a large caliber peel-away sheath under fluoroscopic guidance such that the distal tip resided in the mid right atrium. Manual flow rates were assessed and found to be within normal limits. The catheter was then flushed, packed with Heparin, capped, and sutured to the skin. The neck dermatotomy was closed with Dermabond. No immediate complications were identified. The vascular access procedure was followed in identical fashion, slightly more cephalad in the right internal jugular vein. Following guidewire advancement, and dilatation, a triple-lumen central venous catheter was advanced such that the catheter tip was at the cavoatrial junction. The catheters flush and aspirate normally. Anesthesia: Local only Fluoroscopy time: 0.6 minutes Dose area product: 0.4 Gycm2 Impression: Tunneled hemodialysis catheter placement as described
[2019-10-15] MEDS ORDERED: IV NORMAL SALINE 1000ML BAG 1,000 ML IV PRN ×2 (16:04)
[2019-10-15] MEDS ORDERED: ACETAMINOPHEN 500 MG TABLET PO PRN (16:15)
[2019-10-15] MEDS ORDERED: diphenhydrAMINE 50 MG/ML VIAL IV PRN ×2 (16:15)
[2019-10-15] MEDS ORDERED: DIALYSIS PATIENT. MC PRN (16:15)
--- NOTE | 2019-10-15 16:58 | PDOC ---
PROGRESS NOTES Assessment Assessment IMPRESSION: Metabolic encephalopathy. Dementia? Dysphagia, no evidence of neuromuscular junction disease. Leukocytosis. Diabetic ketoacidosis. Hyperglycemia. Hypoglycemia. Chronic balanitis. End-stage renal disease on dialysis Anemia of chronic disease. HTN. HLD. COPD. CAD, s/p ME. RECOMMENDATIONS/PLAN: Treat medical diseases. Control hyper and hypoglycemia. EEG, still encephalopathic. Discussed with his brother at bedside on 10/15/19. Past Medical History Cardiovascular: CAD, HTN, ME, Hyperlipidemia Pulmonary: COPD CENTRAL NERVOUS SYSTEM: Periperal neuropathy Psych: Anxiety, Depression Musculoskeletal: Osteoarthritis Renal/: Chronic renal failure ( peritoneal dialysis), Other (balanitis) Endocrine: Diabetes ( type I) Past Surgical History Coronary angioplasty, dialysis center, peritoneal dialysis catheter, arthroscopic knee, fasciotomy, facial fractures, left foot, sinus. Family History Cancer Social History Used to use alcohol heavily, marijuana, other street drugs, still smokes tobacco, unemployed for over 3 years, Allergies Coded Allergies: Lamotrigine (Verified Allergy, Severe, HIVES, SHORTNESS OF BREATH, 08/27/19) ROS Negative for fever, chills, weight loss, shortness of breath, chest pain, indigestion, hematochezia, melena, and dysuria. Full 14-point review of systems is negative. MEDICATIONS: Refer to MAR PHYSICAL EXAMINATION: General appearance in subacute distress. HEENT: Normocephalic and nontraumatic. Eyes, nose, ears, and throat are unremarkable. Hearing decrease. Neck is supple. No lymphadenopathy. No Crepitus. Cardiovascular: S1, S2. Pulmonary: Mildly decreased to auscultation bilaterally. Abdomen: Bowel sounds are positive. Extremities: No rash, lesions, or edema. No restriction of range of motion NEUROLOGICAL EXAMINATION: Drowsiness. Not oriented to time, place but knows person. PERRL. EOMI. CN: no focal findings. Muscle tone: within normal. Muscle strength: 4+ DTR: 1-2 Plantar reflex: Neutral response bilaterally Gait: not examined in bed. Sensory exam: no abnormal findings. No cerebellar signs elicited. F-T-N test fine. Objective Objective Vital Signs Date Time Temp Pulse Resp B/P (MAP) Pulse Ox O2 Delivery O2 Flow Rate FiO2 10/15/19 11:00 97.4 91 20 145/88 (107) 96 Room Air 97.4 10/15/19 07:00 2.0 Intake and Output 10/15/19 07:00 Intake Total 0 ml Output Total 0 ml Balance 0 ml Intake Oral 0 ml Output Urine Total 0 ml Vitals Signs Vitals VS - Last 72 Hours, by Label Date Time Temp Pulse Resp B/P (MAP) Pulse Ox O2 Delivery O2 Flow Rate FiO2 10/15/19 11:00 97.4 91 20 145/88 (107) 96 Room Air 97.4 10/15/19 07:00 97.4 91 20 147/55 (85) 100 Nasal Cannula 2.0 97.4 10/15/19 03:00 97.6 86 19 149/67 (94) 95 Nasal Cannula 2.0 97.6 10/14/19 22:36 98.2 89 17 110/38 (62) 95 Nasal Cannula 2.0 98.2 10/14/19 21:00 87 98/79 10/14/19 19:00 97.7 87 16 98/79 (85) 99 Nasal Cannula 2.0 97.7 10/14/19 15:44 97.6 99 18 97/41 (59) 96 Nasal Cannula 2.0 97.6 10/14/19 11:43 97.5 99 18 94/41 (58) 96 Nasal Cannula 2.0 97.5 10/14/19 08:00 Nasal Cannula 2.0 10/14/19 07:41 97.5 94 18 120/47 (71) 98 Nasal Cannula 2.0 97.5 Laboratory Laboratory Laboratory Tests Test 10/14/19 16:35 10/14/19 18:14 10/14/19 20:32 10/15/19 03:27 Glucose (Fingerstick) 405 mg/dL (70-99) 363 mg/dL (70-99) 295 mg/dL (70-99) 287 mg/dL (70-99) Test 10/15/19 05:46 10/15/19 11:52 Glucose (Fingerstick) 240 mg/dL (70-99) 126 mg/dL (70-99) Microbiology 10/12/19 Blood Culture - Preliminary, Resulted NO GROWTH AFTER 3 DAYS 10/08/19 Aerobic Culture - Final, Complete 10/08/19 Aerobic Culture Result 1 (HEATHER) - Final, Complete 10/08/19 Gram Stain - Final, Complete 10/08/19 Gram Stain Result 1 (HEATHER) - Final, Complete 10/08/19 Gram Stain Result 2 (HEATHER) - Final, Complete Medication Medications Current Medications Acetaminophen (Tylenol) 500 mg 1X PRN PRN PO MILD PAIN / TEMP; Start 10/15/19 at 16:15; Stop 10/16/19 at 16:14 Barium Sulfate (Varibar Thin Liquid Apple) 148 gm 1X ONCE PO Last administered on 10/15/19at 11:10; Start 10/15/19 at 10:00; Stop 10/15/19 at 10:02; Status DC Darbepoetin Zaid (ARANESP for DIALYSIS PTS) 60 mcg WEEKLYHS SQ ; Start 10/15/19 at 21:00 Diphenhydramine HCl (Benadryl) 25 mg 1X PRN PRN IV ITCHING; Start 10/15/19 at 16:15; Stop 10/16/19 at 16:14 Diphenhydramine HCl (Benadryl) 25 mg 1X PRN PRN IV ITCHING; Start 10/15/19 at 16:15; Stop 10/16/19 at 16:14 Fentanyl Citrate (Fentanyl 2ml Vial) 25 mcg PRN Q5MIN PRN IV MILD PAIN 1-3; Start 10/16/19 at 07:00; Stop 10/17/19 at 06:59 Fentanyl Citrate (Fentanyl 2ml Vial) 50 mcg PRN Q5MIN PRN IV MODERATE TO SEVERE PAIN; Start 10/16/19 at 07:00; Stop 10/17/19 at 06:59 Furosemide (Lasix) 80 mg BID92 IVP Last administered on 10/15/19at 15:24; Start 10/15/19 at 14:00 Hydromorphone HCl (Dilaudid) 0.5 mg PRN Q10MIN PRN IV SEV PAIN, Second choice; Start 10/16/19 at 07:00; Stop 10/17/19 at 06:59 Info (PHARMACY MONITORING -- do not chart) 1 each PRN DAILY PRN MC SEE COMMENTS; Start 10/15/19 at 16:15 Labetalol HCl (Normodyne Iv Push) 10 mg PRN Q2HR PRN IVP HYPERTENSION; Start 10/15/19 at 13:45 Lidocaine HCl (Xylocaine-Mpf 1% 2ml Vial) 2 ml PRN 1X PRN ID PRIOR TO IV START; Start 10/16/19 at 07:00; Stop 10/17/19 at 06:59 Lidocaine/ Epinephrine (LIDOCAINE 1%-EPI 1:100,000 Multi-Dose) 19 ml 1X ONCE INJ Last administered on 10/15/19at 14:54; Start 10/15/19 at 15:00; Stop 10/15/19 at 15:01; Status DC Lidocaine/ Epinephrine (LIDOCAINE 1%-EPI 1:100,000 Multi-Dose) 20 ml STK-MED ONCE .ROUTE ; Start 10/15/19 at 13:16; Stop 10/15/19 at 13:17; Status DC Morphine Sulfate (Morphine Sulfate) 1 mg PRN Q10MIN PRN IV SEVERE PAIN 7-10; Start 10/16/19 at 07:00; Stop 10/17/19 at 06:59 Ondansetron HCl (Zofran) 4 mg PRN Q6HRS PRN IV NAUSEA/VOMITING; Start 10/16/19 at 07:00; Stop 10/17/19 at 06:59 Prochlorperazine Edisylate (Compazine) 5 mg PACU PRN PRN IV NAUSEA, MRX1; Start 10/16/19 at 07:00; Stop 10/17/19 at 06:59 Ringer's Solution 1,000 ml @ 30 mls/hr Q24H IV ; Start 10/16/19 at 07:00; Stop 10/16/19 at 18:59 Sodium Chloride 1,000 ml @ 400 mls/hr Q2H30M PRN IV PATENCY; Start 10/15/19 at 16:04; Stop 10/16/19 at 04:03 Sodium Chloride 1,000 ml @ 1,000 mls/hr Q1H PRN IV hypotension; Start 10/15/19 at 16:04; Stop 10/15/19 at 22:03 Comment Review of Relevant I have reviewed the following items alex (where applicable) has been applied. LISETTE PADILLA MD Oct 15, 2019 16:58
[2019-10-15 18:08] LABS: ALBUMIN 0.7 g/dL (3.4-5.0); ALBUMIN/GLOBULIN RATIO 0.2 (1.0-1.7); CALCIUM 7.5 mg/dL (8.5-10.1); GFR 12.2; POTASSIUM 4.1 mmol/L (3.5-5.1); TOTAL BILIRUBIN 0.2 mg/dL (0.2-1.0); TOTAL PROTEIN 3.9 g/dL (6.4-8.2)
[2019-10-15 20:00] VITALS: BP 108/62
[2019-10-15 20:07] LABS: ANA INTERP Negative (.)
[2019-10-15] MEDS: LOSARTAN POTASSIUM 50 MG TABLET. PO SCH (21:00)
[2019-10-15] MEDS: INSULIN GLARGINE SYRINGE. SQ SCH (21:00)
[2019-10-15] MEDS ORDERED: DARBEPOETIN ALFA 60 MCG/0.3 ML DISP.SYRIN. SQ SCH (21:00)
[2019-10-15] MEDS: ATORVASTATIN CALCIUM 40 MG TABLET. PO SCH (21:00)
[2019-10-15] MEDS: TAMSULOSIN 0.4 MG CAP.ER.24H. PO SCH (21:00)
[2019-10-15 23:30] VITALS: BP 139/51
[2019-10-16 03:30] VITALS: BP 104/67
[2019-10-16] MEDS: INSULIN LISPRO 300 UNITS/3 ML VIAL. SQ SCH ×7 (06:44→21:00)
[2019-10-16 07:00] VITALS: BP 129/61
[2019-10-16] MEDS ORDERED: PROCHLORPERAZINE 10 MG/2 ML VIAL. IV PRN (07:00)
[2019-10-16] MEDS ORDERED: IV RINGERS,LACTATED 1000ML 1,000 ML IV SCH (07:00)
[2019-10-16] MEDS ORDERED: fentaNYL PF VIAL 100 MCG/2 ML VIAL IV PRN ×2 (07:00)
[2019-10-16] MEDS ORDERED: ONDANSETRON PF 4 MG/2 ML VIAL. IV PRN (07:00)
[2019-10-16] MEDS ORDERED: HYDROmorphone 2 MG/ML VIAL IV PRN (07:00)
[2019-10-16] MEDS ORDERED: LIDOCAINE 1% PF 2 ML VIAL. ID PRN (07:00)
[2019-10-16] MEDS ORDERED: MORPHINE SULFATE 2 MG/ML VIAL. IV PRN (07:00)
[2019-10-16 07:26] LABS: BASO % 0 % (0-3); EOS % 1 % (0-3); HEMATOCRIT 26.8 % (39.0-53.0); HEMOGLOBIN 8.4 g/dL (13.0-17.5); LYMPH # 0.6 x10^3/uL (1.0-4.8); LYMPH % 6 % (24-48); MEAN CORPUSCULAR HEMOGLOBIN 30 pg (25-35); MEAN CORPUSCULAR HGB CONC 32 g/dL (31-37); MEAN CORPUSCULAR VOLUME 94 fL (79-100); MONO # 0.6 x10^3/uL (0.0-1.1); MONO % 6 % (0-9); NEUT % 87 % (31-73); PLATELET COUNT 278 x10^3/uL (140-400); RED BLOOD COUNT 2.85 x10^6/uL (4.30-5.70); RED CELL DISTRIBUTION WIDTH 17.1 % (11.5-14.5); WHITE BLOOD COUNT 10.3 x10^3/uL (4.0-11.0)
[2019-10-16 07:31] LABS: CALCIUM 8.1 mg/dL (8.5-10.1); CREATININE 4.5 mg/dL (0.7-1.3); GFR 13.7; POTASSIUM 4.2 mmol/L (3.5-5.1)
[2019-10-16 07:35] LABS: PROTHROMBIN TIME PATIENT 17.4 SEC (11.7-14.0)
[2019-10-16] MEDS: ASPIRIN ENTERIC COATED 81 MG TABLET.DR. PO SCH (08:00)
[2019-10-16] MEDS: AA 4.25 %/CALCIUM/LYTES/D5W 1,000 ML IV SCH ×3 (08:00→22:27)
[2019-10-16] MEDS: CALCIUM ACETATE 667 MG CAPSULE PO SCH ×3 (08:00→17:00)
[2019-10-16] MEDS: MEROPENEM 500 MG in IV NORMAL SALINE 50ML 50 ML IV SCH ×2 (08:46→22:27)
[2019-10-16] MEDS: LACTOBACILLUS RHAMNOSUS GG 1 CAPSULE. PO SCH ×2 (08:54→21:00)
[2019-10-16] MEDS: PANTOPRAZOLE IV PUSH 40 MG VIAL. IVP SCH (08:55)
[2019-10-16] MEDS: FUROSEMIDE 40 MG/4 ML VIAL. IVP SCH ×2 (08:55→18:27)
[2019-10-16] MEDS ORDERED: IV NORMAL SALINE 1000ML BAG 1,000 ML IV PRN ×2 (10:40)
--- NOTE | 2019-10-16 10:42 | PDOC ---
Renal-Progress Notes Subjective Notes Notes NO NEW COMPLAINTS History of Present Illness Hx of present illness STABLE Vitals Vitals Vital Signs Date Time Temp Pulse Resp B/P (MAP) Pulse Ox O2 Delivery O2 Flow Rate FiO2 10/16/19 07:00 98.1 98 16 129/61 (83) 98 Room Air 98.1 10/16/19 03:30 2.0 Weight Weight [ ] I.O. Intake and Output Intake and Output 10/16/19 07:00 Intake Total 0 ml Balance 0 ml Intake Oral 0 ml # Bowel Movements 2 Labs Labs Laboratory Tests Test 10/15/19 11:52 10/15/19 17:15 10/15/19 23:52 10/16/19 06:37 Glucose (Fingerstick) 126 mg/dL (70-99) 85 mg/dL (70-99) 271 mg/dL (70-99) Sodium Level 134 mmol/L (136-145) Potassium Level 4.1 mmol/L (3.5-5.1) Chloride Level 98 mmol/L (98-107) Carbon Dioxide Level 29 mmol/L (21-32) Anion Gap 7 (6-14) Blood Urea Nitrogen 47 mg/dL (8-26) Creatinine 5.0 mg/dL (0.7-1.3) Estimated GFR (Cockcroft-Gault) 12.2 BUN/Creatinine Ratio 9 (6-20) Glucose Level 91 mg/dL (70-99) Calcium Level 7.5 mg/dL (8.5-10.1) Total Bilirubin 0.2 mg/dL (0.2-1.0) Aspartate Amino Transf (AST/SGOT) 25 U/L (15-37) Alanine Aminotransferase (ALT/SGPT) 13 U/L (16-63) Alkaline Phosphatase 298 U/L (46-116) Total Protein 3.9 g/dL (6.4-8.2) Albumin 0.7 g/dL (3.4-5.0) Albumin/Globulin Ratio 0.2 (1.0-1.7) Hepatitis B Surface Antigen Nonreactive (Nonreactive) Test 10/16/19 07:10 10/16/19 07:41 White Blood Count 10.3 x10^3/uL (4.0-11.0) Red Blood Count 2.85 x10^6/uL (4.30-5.70) Hemoglobin 8.4 g/dL (13.0-17.5) Hematocrit 26.8 % (39.0-53.0) Mean Corpuscular Volume 94 fL (79-100) Mean Corpuscular Hemoglobin 30 pg (25-35) Mean Corpuscular Hemoglobin Concent 32 g/dL (31-37) Red Cell Distribution Width 17.1 % (11.5-14.5) Platelet Count 278 x10^3/uL (140-400) Neutrophils (%) (Auto) 87 % (31-73) Lymphocytes (%) (Auto) 6 % (24-48) Monocytes (%) (Auto) 6 % (0-9) Eosinophils (%) (Auto) 1 % (0-3) Basophils (%) (Auto) 0 % (0-3) Neutrophils # (Auto) 9.0 x10^3/uL (1.8-7.7) Lymphocytes # (Auto) 0.6 x10^3/uL (1.0-4.8) Monocytes # (Auto) 0.6 x10^3/uL (0.0-1.1) Eosinophils # (Auto) 0.0 x10^3/uL (0.0-0.7) Basophils # (Auto) 0.0 x10^3/uL (0.0-0.2) Prothrombin Time 17.4 SEC (11.7-14.0) Prothromb Time International Ratio 1.5 (0.8-1.1) Sodium Level 131 mmol/L (136-145) Potassium Level 4.2 mmol/L (3.5-5.1) Chloride Level 96 mmol/L (98-107) Carbon Dioxide Level 29 mmol/L (21-32) Anion Gap 6 (6-14) Blood Urea Nitrogen 39 mg/dL (8-26) Creatinine 4.5 mg/dL (0.7-1.3) Estimated GFR (Cockcroft-Gault) 13.7 Glucose Level 284 mg/dL (70-99) Calcium Level 8.1 mg/dL (8.5-10.1) Glucose (Fingerstick) 245 mg/dL (70-99) Micro Micro Microbiology 10/12/19 Blood Culture - Preliminary, Resulted NO GROWTH AFTER 3 DAYS 10/08/19 Aerobic Culture - Final, Complete 10/08/19 Aerobic Culture Result 1 (HEATHER) - Final, Complete 10/08/19 Gram Stain - Final, Complete 10/08/19 Gram Stain Result 1 (HEATHER) - Final, Complete 10/08/19 Gram Stain Result 2 (HEATHER) - Final, Complete Review of Systems Constitutional: yes: alert, oriented Ears/Nose/Throat: Yes: no symptom reported Eyes: Yes: no symptom reported Pulmonary: Yes no symptom reported Gastrointestional: Yes: nausea, constipation Genitourinary: Yes: no symptom reported Musculoskeletal: Yes: muscle stiffness Skin: Yes no symptom reported Psychiatric/Neurological: Yes: no symptom reported Endocrine: Yes: no symptom reported Physical Exam General Appearance: no apparent distress Skin: warm Respiratory: decreased breath sounds Heart: S1S2, no thrills Abdomen: soft, bowel sounds present Genitourinary: bladder flat Extremities: pulses present Neurology: alert, oriented Musculoskeletal: Osteoarthritis Assessment Assessment IMP ESRD LEUCOCYTOSIS FAILURE TO THRIVE ON PD ENCEPHALOPATHY-IMPROVED CHRONIC BALANITIS DM II WITH DKA ANEMIA OF ESRD DECONDITIONING DYSPHAGIA PAD S/P TDC PLAN HD TODAY UF TO DW SWALLOW STUDY SURGERY TO REMOVE PD CATHETER WILL NEED PEG ONCE PD CATHETER IS OUT CONT PPN FOR NOW UPDATED FAMILY STARTED [place] [facility] TO SET UP OP HD ARCHIE BAUTISTA MD Oct 16, 2019 10:42
[2019-10-16] MEDS ORDERED: DIALYSIS PATIENT. MC PRN ×2 (10:45)
[2019-10-16] MEDS ORDERED: ALBUMIN HUMAN 25% 200 ML IV PRN (10:45)
--- NOTE | 2019-10-16 10:46 | PDOC ---
Infectious Disease Note Subjective Subjective pt is feeling ok, ROS ROS no n/v/d/sob/fever Vital Sign Vital Signs Vital Signs Date Time Temp Pulse Resp B/P (MAP) Pulse Ox O2 Delivery O2 Flow Rate FiO2 10/16/19 07:00 98.1 98 16 129/61 (83) 98 Room Air 98.1 10/16/19 03:30 2.0 Physical Exam PHYSICAL EXAM GENERAL: Alert today. in bed - NAD - coop HEENT: Normocephalic, atraumatic, anicteric. No thrush. NECK: No tenderness. Supple, no JVD, LUNGS: Clear. HEART: S1, S2. ABDOMEN: Soft. PD catheter in place, nontender, nondistended. GENITOURINARY: Penile swelling, min redness with eschar like lesion,, No purulence noted - No drainage today - still painful EXTREMITIES: no pedal edema/swelling/joint pain or erythema SKIN: Dry skin. No cyanosis.superficial skin erythema on back pressure changes NEUROLOGIC:Answering questions well. appropriate PSYCHIATRIC flat Labs Lab Laboratory Tests Test 10/15/19 11:52 10/15/19 17:15 10/15/19 23:52 10/16/19 06:37 Glucose (Fingerstick) 126 mg/dL (70-99) 85 mg/dL (70-99) 271 mg/dL (70-99) Sodium Level 134 mmol/L (136-145) Potassium Level 4.1 mmol/L (3.5-5.1) Chloride Level 98 mmol/L (98-107) Carbon Dioxide Level 29 mmol/L (21-32) Anion Gap 7 (6-14) Blood Urea Nitrogen 47 mg/dL (8-26) Creatinine 5.0 mg/dL (0.7-1.3) Estimated GFR (Cockcroft-Gault) 12.2 BUN/Creatinine Ratio 9 (6-20) Glucose Level 91 mg/dL (70-99) Calcium Level 7.5 mg/dL (8.5-10.1) Total Bilirubin 0.2 mg/dL (0.2-1.0) Aspartate Amino Transf (AST/SGOT) 25 U/L (15-37) Alanine Aminotransferase (ALT/SGPT) 13 U/L (16-63) Alkaline Phosphatase 298 U/L (46-116) Total Protein 3.9 g/dL (6.4-8.2) Albumin 0.7 g/dL (3.4-5.0) Albumin/Globulin Ratio 0.2 (1.0-1.7) Hepatitis B Surface Antigen Nonreactive (Nonreactive) Test 10/16/19 07:10 10/16/19 07:41 White Blood Count 10.3 x10^3/uL (4.0-11.0) Red Blood Count 2.85 x10^6/uL (4.30-5.70) Hemoglobin 8.4 g/dL (13.0-17.5) Hematocrit 26.8 % (39.0-53.0) Mean Corpuscular Volume 94 fL (79-100) Mean Corpuscular Hemoglobin 30 pg (25-35) Mean Corpuscular Hemoglobin Concent 32 g/dL (31-37) Red Cell Distribution Width 17.1 % (11.5-14.5) Platelet Count 278 x10^3/uL (140-400) Neutrophils (%) (Auto) 87 % (31-73) Lymphocytes (%) (Auto) 6 % (24-48) Monocytes (%) (Auto) 6 % (0-9) Eosinophils (%) (Auto) 1 % (0-3) Basophils (%) (Auto) 0 % (0-3) Neutrophils # (Auto) 9.0 x10^3/uL (1.8-7.7) Lymphocytes # (Auto) 0.6 x10^3/uL (1.0-4.8) Monocytes # (Auto) 0.6 x10^3/uL (0.0-1.1) Eosinophils # (Auto) 0.0 x10^3/uL (0.0-0.7) Basophils # (Auto) 0.0 x10^3/uL (0.0-0.2) Prothrombin Time 17.4 SEC (11.7-14.0) Prothromb Time International Ratio 1.5 (0.8-1.1) Sodium Level 131 mmol/L (136-145) Potassium Level 4.2 mmol/L (3.5-5.1) Chloride Level 96 mmol/L (98-107) Carbon Dioxide Level 29 mmol/L (21-32) Anion Gap 6 (6-14) Blood Urea Nitrogen 39 mg/dL (8-26) Creatinine 4.5 mg/dL (0.7-1.3) Estimated GFR (Cockcroft-Gault) 13.7 Glucose Level 284 mg/dL (70-99) Calcium Level 8.1 mg/dL (8.5-10.1) Glucose (Fingerstick) 245 mg/dL (70-99) Micro Microbiology 10/12/19 Blood Culture - Preliminary, Resulted NO GROWTH AFTER 2 DAYS 10/08/19 Aerobic Culture - Final, Complete 10/08/19 Aerobic Culture Result 1 (HEATHER) - Final, Complete 10/08/19 Gram Stain - Final, Complete 10/08/19 Gram Stain Result 1 (HEATHER) - Final, Complete 10/08/19 Gram Stain Result 2 (HEATHER) - Final, Complete Objective Assessment Fever 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 Leukocytosis - better - cults neg 2. Acute Encephalopathy - some better - Ammonia nml. TSH pending MRI - neg and CT with acute on chronic sinuses 3. DKA 4. Balanitis chronic 5. Anemia of chronic disease. 6. End-stage renal disease, on peritoneal dialysis. 7. Peripheral vascular disease. Plan Plan of Care Meropenem Neuropathy per primary Need Urology f/u F/u labs and cults - neg so far Local wound care pd cath will be out today, then peg D/w nursing d/w brother WANDA STACY MD Oct 16, 2019 10:46
--- NOTE | 2019-10-16 11:56 | PDOC ---
Objective: Vital Signs: Vital Signs Date Time Temp Pulse Resp B/P (MAP) Pulse Ox O2 Delivery O2 Flow Rate FiO2 10/16/19 07:00 98.1 98 16 129/61 (83) 98 Room Air 98.1 10/16/19 03:30 2.0 Labs: Laboratory Tests Test 10/15/19 11:52 10/15/19 17:15 10/15/19 23:52 10/16/19 06:37 Glucose (Fingerstick) 126 mg/dL 85 mg/dL 271 mg/dL Sodium Level 134 mmol/L Potassium Level 4.1 mmol/L Chloride Level 98 mmol/L Carbon Dioxide Level 29 mmol/L Anion Gap 7 Blood Urea Nitrogen 47 mg/dL Creatinine 5.0 mg/dL Estimated GFR (Cockcroft-Gault) 12.2 BUN/Creatinine Ratio 9 Glucose Level 91 mg/dL Calcium Level 7.5 mg/dL Total Bilirubin 0.2 mg/dL Aspartate Amino Transf (AST/SGOT) 25 U/L Alanine Aminotransferase (ALT/SGPT) 13 U/L Alkaline Phosphatase 298 U/L Total Protein 3.9 g/dL Albumin 0.7 g/dL Albumin/Globulin Ratio 0.2 Hepatitis B Surface Antigen Nonreactive Test 10/16/19 07:10 10/16/19 07:41 White Blood Count 10.3 x10^3/uL Red Blood Count 2.85 x10^6/uL Hemoglobin 8.4 g/dL Hematocrit 26.8 % Mean Corpuscular Volume 94 fL Mean Corpuscular Hemoglobin 30 pg Mean Corpuscular Hemoglobin Concent 32 g/dL Red Cell Distribution Width 17.1 % Platelet Count 278 x10^3/uL Neutrophils (%) (Auto) 87 % Lymphocytes (%) (Auto) 6 % Monocytes (%) (Auto) 6 % Eosinophils (%) (Auto) 1 % Basophils (%) (Auto) 0 % Neutrophils # (Auto) 9.0 x10^3/uL Lymphocytes # (Auto) 0.6 x10^3/uL Monocytes # (Auto) 0.6 x10^3/uL Eosinophils # (Auto) 0.0 x10^3/uL Basophils # (Auto) 0.0 x10^3/uL Prothrombin Time 17.4 SEC Prothromb Time International Ratio 1.5 Sodium Level 131 mmol/L Potassium Level 4.2 mmol/L Chloride Level 96 mmol/L Carbon Dioxide Level 29 mmol/L Anion Gap 6 Blood Urea Nitrogen 39 mg/dL Creatinine 4.5 mg/dL Estimated GFR (Cockcroft-Gault) 13.7 Glucose Level 284 mg/dL Calcium Level 8.1 mg/dL Glucose (Fingerstick) 245 mg/dL Imaging: Margaret 10/15 IMPRESSION: 1. Laryngeal penetration with all liquid consistencies as above. Refer to the full report by speech pathology for more detail. HELPDESK MANAGER Margaret Preliminary Note: Pt demo's penetration to the level of the vocal folds across all consistencies tested. Aspiration was not directly observed but pt has high potential for aspiration including silent aspiration given observed material sitting on vocal folds during eval w/ no effort to eject. Penetration occurs during the swallow w/ add'l amounts of penetration noted from residues post swallow, primarily residue coating the anterior epiglottis that rolls down into larynx. Initiation of pharyngeal swallow is delayed by up to 2 seconds w/ thin liquids, and lesser, approx. 1 second delays w/ other consistencies. See HELPDESK MANAGER Margaret report in Interventions for add'l details. IMPRESSIONS: Moderate pharyngeal dysphagia w/ delayed initiation of pharyngeal swallow, decreased airway closure, and decreased hyolaryngeal excursion all contributing to deep penetration w/ high risk for aspiration w/ all PO intake. Pt has potential for therapeutic PO intake w/ direct HELPDESK MANAGER supervision, but it will not contribute to immediate nutrition/hydration needs. No immediate potential for safe PO intake for near future. RECOMMENDATIONS: Continue NPO. Non-oral nutrition intake. Will continue HELPDESK MANAGER f/u to address dysphagia. Procedure: 1.Tunneled hemodialysis catheter placement 10/15/2019 1:49 PM 2. Placement of right internal jugular central line for IV access, PE: out of room A/P: Dysphagia - videosrober and HELPDESK MANAGER recs as above ESRD - s/p tunneled cath placement 10/15 as above ACD, GERD -- D/w nurse - now on HD w/ plans for PD cath removal today. Will review timing for PEG placement w/ Dr. Martinez. Hemodynamically unstable?: No Is patient in severe pain?: No Is NPO status required?: Yes PADILLA HONG Oct 16, 2019 11:56
--- NOTE | 2019-10-16 12:08 | EEG ---
DATE OF SERVICE: 10/12/2019 EEG NUMBER: [id number]. OBJECTIVE: This is a 53-year-old male patient with history of prolonged mental status changes. EEG was requested to evaluate cerebral activity and help rule out subclinical seizures. METHODS: Twenty electrodes were applied according to the international 10-20 electrode placement system. EKG monitoring, hyperventilation, intermittent photic stimulation, monopolar and bipolar montages are routinely utilized. The record was obtained on a digital system with video monitoring. FINDINGS: 1. Background: The patient was recorded in the awake, drowsy and sleep states. The overall background amplitude is variable. No well-organized posterior dominant rhythm is observed. The overall background rhythm is with diffuse slowing in the theta and delta frequencies throughout the entire recording. 2. Abnormalities: No specific epileptiform discharge or electrographic seizure is seen. Diffuse slowing in the theta and delta frequencies throughout the entire recording. 3. Activation: Hyperventilation was not performed because the patient was not able to perform the technique. Intermittent photic stimulation was performed with photic driving. IMPRESSION: This EEG is an abnormal study for the awake, drowsy and sleep states. No well-organized posterior dominant rhythm is observed. The overall background rhythm is with diffuse slowing in the theta and delta frequencies throughout the entire recording. No differentiation between awake and sleep. No focal, lateralizing, specific epileptiform discharge, or electrographic seizure is seen. This pattern of EEG is suggestive of diffuse encephalopathy. LISETTE PADILLA MD DR: JER/ruel JOB#: [id number] / [id number] PAMELA
--- NOTE | 2019-10-16 14:29 | PDOC ---
PROGRESS NOTES Chief Complaint Chief Complaint A/P: Acute encephalopathy - metabolic 2/2 DKA and toxic 2/2 likely infectious etiology. Still somewhat confused DKA, type 2 - off insulin GTT. will repeat BMP, able to eat, lantus tonight. Elevated alkaline phosphatase level - will monitor, no biliary problems previously Lactic acidosis - likely due to diabetes mellitus. Will trend Penile cellulitis - present on admission, likely from failure to f/u outpatient - Doxy and augmentin with fluconazole previously. Will culture and consult ID ESRD on HD transitioning to PD prior to his admission - tolerating well. Will consult nephrology Sepsis - from penile cellulitis as etiology, f/u cultures. Previously with coag negative staph on PD culture. F/u repeat culture HTN - cont meds DM type 2 insulin requiring - now hyperglycemic, previously with hypoglycemic event - hypoglycemia protocol. Cont insulin basal bolus plus once out of DKA Severe protein calorie malnutrition - unclear etiology, albumin 1.2, definitely has inconsistent PO intake. Bridge [place] to see Anemia - of chronic renal disease Penile cellulitis, could have a component of vasculature involvement. U/S shows no abscess - painless ulcer concerning. Syphilis testing negative previously. Wound care to see Gait instability - needs further PT Anemia - of chronic renal disease Hyperphosphatemia - likely related to phos binder compliance difficulties. Will add phosri gibson, d/w nephrology History of Present Illness History of Present Illness out having PD taken out then PEG Came form home with brother and admantly refuses SNU or [facility] To get central line (on multiple IV abx and anti fungaL) - done To get tunneled HD cath - done BP can be high, i can resume BP meds once peg placed PLAn: PD cath removal then peg today prn labetolol I kept po meds since if peg, will be able to resume BP meds Procalamine meantime FULL CODE ONly agreebale to on dc Vitals Vitals Vital Signs Date Time Temp Pulse Resp B/P (MAP) Pulse Ox O2 Delivery O2 Flow Rate FiO2 10/16/19 07:00 98.1 98 16 129/61 (83) 98 Room Air 98.1 10/16/19 03:30 2.0 Physical Exam Physical Exam GENERAL: Alert today. in bed - NAD - coop HEENT: Normocephalic, atraumatic, anicteric. No thrush. NECK: No tenderness. Supple, no JVD, LUNGS: Clear. HEART: S1, S2. ABDOMEN: Soft. PD catheter in place, nontender, nondistended. GENITOURINARY: Penile swelling, min redness with eschar like lesion,, No purulence noted - No drainage today - still painful EXTREMITIES: no pedal edema/swelling/joint pain or erythema SKIN: Dry skin. No cyanosis.superficial skin erythema on back pressure changes NEUROLOGIC:Answering questions well. appropriate PSYCHIATRIC flat General: Alert, Cooperative, No acute distress Heart: Regular rate, Normal S1, Normal S2 Lungs: Clear, Other Abdomen: Soft, Other (PD cath in place) Extremities: No clubbing, No cyanosis Skin: No rashes, No breakdown Labs LABS Laboratory Tests Test 10/15/19 17:15 10/15/19 23:52 10/16/19 06:37 10/16/19 07:10 Sodium Level 134 mmol/L (136-145) 131 mmol/L (136-145) Potassium Level 4.1 mmol/L (3.5-5.1) 4.2 mmol/L (3.5-5.1) Chloride Level 98 mmol/L (98-107) 96 mmol/L (98-107) Carbon Dioxide Level 29 mmol/L (21-32) 29 mmol/L (21-32) Anion Gap 7 (6-14) 6 (6-14) Blood Urea Nitrogen 47 mg/dL (8-26) 39 mg/dL (8-26) Creatinine 5.0 mg/dL (0.7-1.3) 4.5 mg/dL (0.7-1.3) Estimated GFR (Cockcroft-Gault) 12.2 13.7 BUN/Creatinine Ratio 9 (6-20) Glucose Level 91 mg/dL (70-99) 284 mg/dL (70-99) Calcium Level 7.5 mg/dL (8.5-10.1) 8.1 mg/dL (8.5-10.1) Total Bilirubin 0.2 mg/dL (0.2-1.0) Aspartate Amino Transf (AST/SGOT) 25 U/L (15-37) Alanine Aminotransferase (ALT/SGPT) 13 U/L (16-63) Alkaline Phosphatase 298 U/L (46-116) Total Protein 3.9 g/dL (6.4-8.2) Albumin 0.7 g/dL (3.4-5.0) Albumin/Globulin Ratio 0.2 (1.0-1.7) Hepatitis B Surface Antigen Nonreactive (Nonreactive) Glucose (Fingerstick) 85 mg/dL (70-99) 271 mg/dL (70-99) White Blood Count 10.3 x10^3/uL (4.0-11.0) Red Blood Count 2.85 x10^6/uL (4.30-5.70) Hemoglobin 8.4 g/dL (13.0-17.5) Hematocrit 26.8 % (39.0-53.0) Mean Corpuscular Volume 94 fL (79-100) Mean Corpuscular Hemoglobin 30 pg (25-35) Mean Corpuscular Hemoglobin Concent 32 g/dL (31-37) Red Cell Distribution Width 17.1 % (11.5-14.5) Platelet Count 278 x10^3/uL (140-400) Neutrophils (%) (Auto) 87 % (31-73) Lymphocytes (%) (Auto) 6 % (24-48) Monocytes (%) (Auto) 6 % (0-9) Eosinophils (%) (Auto) 1 % (0-3) Basophils (%) (Auto) 0 % (0-3) Neutrophils # (Auto) 9.0 x10^3/uL (1.8-7.7) Lymphocytes # (Auto) 0.6 x10^3/uL (1.0-4.8) Monocytes # (Auto) 0.6 x10^3/uL (0.0-1.1) Eosinophils # (Auto) 0.0 x10^3/uL (0.0-0.7) Basophils # (Auto) 0.0 x10^3/uL (0.0-0.2) Prothrombin Time 17.4 SEC (11.7-14.0) Prothromb Time International Ratio 1.5 (0.8-1.1) Test 10/16/19 07:41 Glucose (Fingerstick) 245 mg/dL (70-99) Review of Systems Review of Systems out having above procedures Comment Review of Relevant I have reviewed the following items alex (where applicable) has been applied. Labs Laboratory Tests Test 10/14/19 16:35 10/14/19 18:14 10/14/19 20:32 10/15/19 03:27 Glucose (Fingerstick) 405 mg/dL (70-99) 363 mg/dL (70-99) 295 mg/dL (70-99) 287 mg/dL (70-99) Test 10/15/19 05:46 10/15/19 11:52 10/15/19 17:15 10/15/19 23:52 Glucose (Fingerstick) 240 mg/dL (70-99) 126 mg/dL (70-99) 85 mg/dL (70-99) Sodium Level 134 mmol/L (136-145) Potassium Level 4.1 mmol/L (3.5-5.1) Chloride Level 98 mmol/L (98-107) Carbon Dioxide Level 29 mmol/L (21-32) Anion Gap 7 (6-14) Blood Urea Nitrogen 47 mg/dL (8-26) Creatinine 5.0 mg/dL (0.7-1.3) Estimated GFR (Cockcroft-Gault) 12.2 BUN/Creatinine Ratio 9 (6-20) Glucose Level 91 mg/dL (70-99) Calcium Level 7.5 mg/dL (8.5-10.1) Total Bilirubin 0.2 mg/dL (0.2-1.0) Aspartate Amino Transf (AST/SGOT) 25 U/L (15-37) Alanine Aminotransferase (ALT/SGPT) 13 U/L (16-63) Alkaline Phosphatase 298 U/L (46-116) Total Protein 3.9 g/dL (6.4-8.2) Albumin 0.7 g/dL (3.4-5.0) Albumin/Globulin Ratio 0.2 (1.0-1.7) Hepatitis B Surface Antigen Nonreactive (Nonreactive) Test 10/16/19 06:37 10/16/19 07:10 10/16/19 07:41 Glucose (Fingerstick) 271 mg/dL (70-99) 245 mg/dL (70-99) White Blood Count 10.3 x10^3/uL (4.0-11.0) Red Blood Count 2.85 x10^6/uL (4.30-5.70) Hemoglobin 8.4 g/dL (13.0-17.5) Hematocrit 26.8 % (39.0-53.0) Mean Corpuscular Volume 94 fL (79-100) Mean Corpuscular Hemoglobin 30 pg (25-35) Mean Corpuscular Hemoglobin Concent 32 g/dL (31-37) Red Cell Distribution Width 17.1 % (11.5-14.5) Platelet Count 278 x10^3/uL (140-400) Neutrophils (%) (Auto) 87 % (31-73) Lymphocytes (%) (Auto) 6 % (24-48) Monocytes (%) (Auto) 6 % (0-9) Eosinophils (%) (Auto) 1 % (0-3) Basophils (%) (Auto) 0 % (0-3) Neutrophils # (Auto) 9.0 x10^3/uL (1.8-7.7) Lymphocytes # (Auto) 0.6 x10^3/uL (1.0-4.8) Monocytes # (Auto) 0.6 x10^3/uL (0.0-1.1) Eosinophils # (Auto) 0.0 x10^3/uL (0.0-0.7) Basophils # (Auto) 0.0 x10^3/uL (0.0-0.2) Prothrombin Time 17.4 SEC (11.7-14.0) Prothromb Time International Ratio 1.5 (0.8-1.1) Sodium Level 131 mmol/L (136-145) Potassium Level 4.2 mmol/L (3.5-5.1) Chloride Level 96 mmol/L (98-107) Carbon Dioxide Level 29 mmol/L (21-32) Anion Gap 6 (6-14) Blood Urea Nitrogen 39 mg/dL (8-26) Creatinine 4.5 mg/dL (0.7-1.3) Estimated GFR (Cockcroft-Gault) 13.7 Glucose Level 284 mg/dL (70-99) Calcium Level 8.1 mg/dL (8.5-10.1) Laboratory Tests Test 10/15/19 17:15 10/15/19 23:52 10/16/19 06:37 10/16/19 07:10 Sodium Level 134 mmol/L (136-145) 131 mmol/L (136-145) Potassium Level 4.1 mmol/L (3.5-5.1) 4.2 mmol/L (3.5-5.1) Chloride Level 98 mmol/L (98-107) 96 mmol/L (98-107) Carbon Dioxide Level 29 mmol/L (21-32) 29 mmol/L (21-32) Anion Gap 7 (6-14) 6 (6-14) Blood Urea Nitrogen 47 mg/dL (8-26) 39 mg/dL (8-26) Creatinine 5.0 mg/dL (0.7-1.3) 4.5 mg/dL (0.7-1.3) Estimated GFR (Cockcroft-Gault) 12.2 13.7 BUN/Creatinine Ratio 9 (6-20) Glucose Level 91 mg/dL (70-99) 284 mg/dL (70-99) Calcium Level 7.5 mg/dL (8.5-10.1) 8.1 mg/dL (8.5-10.1) Total Bilirubin 0.2 mg/dL (0.2-1.0) Aspartate Amino Transf (AST/SGOT) 25 U/L (15-37) Alanine Aminotransferase (ALT/SGPT) 13 U/L (16-63) Alkaline Phosphatase 298 U/L (46-116) Total Protein 3.9 g/dL (6.4-8.2) Albumin 0.7 g/dL (3.4-5.0) Albumin/Globulin Ratio 0.2 (1.0-1.7) Hepatitis B Surface Antigen Nonreactive (Nonreactive) Glucose (Fingerstick) 85 mg/dL (70-99) 271 mg/dL (70-99) White Blood Count 10.3 x10^3/uL (4.0-11.0) Red Blood Count 2.85 x10^6/uL (4.30-5.70) Hemoglobin 8.4 g/dL (13.0-17.5) Hematocrit 26.8 % (39.0-53.0) Mean Corpuscular Volume 94 fL (79-100) Mean Corpuscular Hemoglobin 30 pg (25-35) Mean Corpuscular Hemoglobin Concent 32 g/dL (31-37) Red Cell Distribution Width 17.1 % (11.5-14.5) Platelet Count 278 x10^3/uL (140-400) Neutrophils (%) (Auto) 87 % (31-73) Lymphocytes (%) (Auto) 6 % (24-48) Monocytes (%) (Auto) 6 % (0-9) Eosinophils (%) (Auto) 1 % (0-3) Basophils (%) (Auto) 0 % (0-3) Neutrophils # (Auto) 9.0 x10^3/uL (1.8-7.7) Lymphocytes # (Auto) 0.6 x10^3/uL (1.0-4.8) Monocytes # (Auto) 0.6 x10^3/uL (0.0-1.1) Eosinophils # (Auto) 0.0 x10^3/uL (0.0-0.7) Basophils # (Auto) 0.0 x10^3/uL (0.0-0.2) Prothrombin Time 17.4 SEC (11.7-14.0) Prothromb Time International Ratio 1.5 (0.8-1.1) Test 10/16/19 07:41 Glucose (Fingerstick) 245 mg/dL (70-99) Microbiology 10/12/19 Blood Culture - Preliminary, Resulted NO GROWTH AFTER 4 DAYS 10/08/19 Aerobic Culture - Final, Complete 10/08/19 Aerobic Culture Result 1 (HEATHER) - Final, Complete 10/08/19 Gram Stain - Final, Complete 10/08/19 Gram Stain Result 1 (HEATHER) - Final, Complete 10/08/19 Gram Stain Result 2 (HEATHER) - Final, Complete Medications Current Medications Ondansetron HCl (Zofran) 4 mg PRN Q4HRS PRN IV NAUSEA/VOMITING; Start 10/08/19 at 16:30 Acetaminophen (Tylenol) 650 mg PRN Q4HRS PRN PO TEMP OVER 100.4F OR MILD PAIN; Start 10/08/19 at 16:30 Docusate Sodium (Colace) 100 mg PRN BID PRN PO CONSTIPATION; Start 10/08/19 at 16:30 Insulin Human Lispro (HumaLOG) 0-7 UNITS TIDACHC SQ Last administered on 10/16/19at 10:07; Start 10/08/19 at 21:00 Dextrose (Dextrose 50%-Water Syringe) 12.5 gm PRN Q15MIN PRN IV SEE COMMENTS Last administered on 10/08/19at 21:05; Start 10/08/19 at 17:00 Dextrose (Iv Dextrose 5%) 250 ml PRN Q15MIN PRN IV SEE COMMENTS; Start 10/08/19 at 17:00 Aspirin (Ecotrin) 81 mg DAILYWBKFT PO Last administered on 10/10/19at 10:10; Start 10/09/19 at 08:00 Atorvastatin Calcium (Lipitor) 40 mg HS PO Last administered on 10/09/19at 21:30; Start 10/08/19 at 21:00 Furosemide (Lasix) 80 mg [id number] PO Last administered on 10/10/19at 16:15; Start 10/08/19 at 18:00; Stop 10/15/19 at 13:33; Status DC Lactobacillus Rhamnosus (Culturelle) 1 cap BID PO Last administered on 10/10/19at 10:09; Start 10/08/19 at 21:00 Montelukast Sodium (Singulair) 10 mg HS PRN PO ALLERGIES; Start 10/08/19 at 17:00 Ondansetron HCl (Zofran Odt) 4 mg PRN Q6HRS PRN PO NAUSEA; Start 10/08/19 at 17:00; Stop 10/15/19 at 13:33; Status DC Tamsulosin HCl (Flomax) 0.4 mg HS PO Last administered on 10/09/19at 21:30; Start 10/08/19 at 21:00 Tramadol HCl (Ultram) 50 mg PRN Q6HRS PRN PO MODERATE PAIN; Start 10/08/19 at 17:00; Stop 10/12/19 at 11:56; Status DC Insulin Glargine (Lantus Syringe) 10 unit QHS SQ Last administered on 10/14/19at 22:14; Start 10/08/19 at 21:00 Losartan Potassium (Cozaar) 100 mg HS PO Last administered on 10/09/19at 21:30; Start 10/08/19 at 21:00 Pantoprazole Sodium (Protonix) 40 mg DAILYAC PO Last administered on 10/10/19at 10:10; Start 10/09/19 at 07:30; Stop 10/12/19 at 09:54; Status DC Sodium Chloride 500 ml @ 500 mls/hr 1X ONCE IV Last administered on 10/08/19at 20:00; Start 10/08/19 at 20:00; Stop 10/08/19 at 20:59; Status DC Calcium Acetate (Phoslo) 1,334 mg TIDWMEALS PO Last administered on 10/10/19at 17:35; Start 10/08/19 at 20:00 Vitamin A/Vitamin D (Vitamin A & D Ointment) 1 lucero PRN Q1HR PRN TP SKIN PROTECTION; Start 10/09/19 at 09:00 Doxycycline Hyclate (Vibra-Tab) 100 mg BID PO Last administered on 10/10/19at 10:08; Start 10/09/19 at 11:00; Stop 10/10/19 at 10:21; Status DC Fluconazole (Diflucan) 100 mg DAILY PO Last administered on 10/10/19at 10:08; Start 10/09/19 at 10:30; Stop 10/12/19 at 11:57; Status DC Amoxicillin/ Clavulanate Potassium (Augmentin 500/ 125mg) 1 tab DAILY PO Last administered on 10/10/19at 10:08; Start 10/09/19 at 10:30; Stop 10/10/19 at 10:21; Status DC Vancomycin HCl (Vanco Per Pharmacy) 1 each PRN DAILY PRN MC SEE COMMENTS Last administered on 10/11/19at 15:08; Start 10/10/19 at 10:30; Stop 10/12/19 at 11:56; Status DC Piperacillin Sod/ Tazobactam Sod 2.25 gm/Sodium Chloride 50 ml @ 100 mls/hr Q8HRS IV Last administered on 10/11/19at 22:06; Start 10/10/19 at 11:00; Stop 10/12/19 at 11:56; Status DC Vancomycin HCl 1.5 gm/Sodium Chloride 500 ml @ 250 mls/hr 1X ONCE IV Last administered on 10/10/19at 16:14; Start 10/10/19 at 11:00; Stop 10/10/19 at 1 2:59; Status DC Vancomycin HCl (Vancomycin Random Level) 1 each 1X ONCE MC Last administered on 10/12/19at 05:00; Start 10/12/19 at 05:00; Stop 10/12/19 at 05:01; Status DC Acetaminophen (Tylenol Supp) 650 mg PRN Q6HRS PRN IN MILD PAIN / TEMP; Start at 06:00 Pantoprazole Sodium (PROTONIX VIAL for IV PUSH) 40 mg DAILYAC IVP Last administered on 10/16/19at 08:55; Start 10/12/19 at 10:00 Meropenem 500 mg/ Sodium Chloride 50 ml @ 100 mls/hr Q8HRS IV Last administered on 10/13/19at 06:00; Start 10/12/19 at 13:00; Stop 10/13/19 at 13:10; Status DC Micafungin Sodium 100 mg/Dextrose 100 ml @ 100 mls/hr Q24H IV Last administ ered on 10/15/19at 15:18; Start 10/12/19 at 12:00 Linezolid/Dextrose 300 ml @ 300 mls/hr Q12HR IV Last administered on 10/16/19at 08:46; Start 10/12/19 at 12:00; Stop 10/16/19 at 10:46; Status DC Amino Acids/ Electrolytes/ Dextrose 1,000 ml @ 80 mls/hr [id number] IV Last administered on 10/16/19at 08:47; Start 10/12/19 at 16:30 Heparin Sodium (Porcine) (Heparin Sodium) 5,000 unit Q8HRS SQ Last administered on 10/15/19at 06:26; Start 10/13/19 at 06:00; Stop 10/15/19 at 13:03; Status DC Insulin Human Lispro (HumaLOG) 21 units 1X ONCE SQ Last administered on 10/13/19at 09:26; Start 10/13/19 at 09:30; Stop 10/13/19 at 09:31; Status DC Insulin Human Lispro (HumaLOG) 4 units Q6HRS SQ Last administered on 10/16/19at 06:44; Start 10/13/19 at 12:00 Meropenem 500 mg/ Sodium Chloride 50 ml @ 100 mls/hr Q12HR IV Last administered on 10/16/19at 08:46; Start 10/13/19 at 21:00 Barium Sulfate (Varibar Thin Liquid Apple) 148 gm 1X ONCE PO ; Start 10/14/19 at 11:30; Stop 10/14/19 at 11:31; Status DC Barium Sulfate (Varibar Thin Liquid Apple) 148 gm 1X ONCE PO Last administered on 10/15/19at 11:10; Start 10/15/19 at 10:00; Stop 10/15/19 at 10:02; Status DC Darbepoetin Zaid (ARANESP for DIALYSIS PTS) 60 mcg WEEKLYHS SQ Last administered on 10/15/19at 23:41; Start 10/15/19 at 21:00 Lidocaine/ Epinephrine (LIDOCAINE 1%-EPI 1:100,000 Multi-Dose) 20 ml STK-MED ONCE .ROUTE ; Start 10/15/19 at 13:16; Stop 10/15/19 at 13:17; Status DC Furosemide (Lasix) 80 mg BID92 IVP Last administered on 10/16/19at 08:55; Start 10/15/19 at 14:00 Labetalol HCl (Normodyne Iv Push) 10 mg PRN Q2HR PRN IVP HYPERTENSION; Start 10/15/19 at 13:45 Ondansetron HCl (Zofran) 4 mg PRN Q6HRS PRN IV NAUSEA/VOMITING; Start 10/16/19 at 07:00; Stop 10/17/19 at 06:59 Fentanyl Citrate (Fentanyl 2ml Vial) 25 mcg PRN Q5MIN PRN IV MILD PAIN 1-3; Start 10/16/19 at 07:00; Stop 10/17/19 at 06:59 Fentanyl Citrate (Fentanyl 2ml Vial) 50 mcg PRN Q5MIN PRN IV MODERATE TO SEVERE PAIN; Start 10/16/19 at 07:00; Stop 10/17/19 at 06:59 Morphine Sulfate (Morphine Sulfate) 1 mg PRN Q10MIN PRN IV SEVERE PAIN 7-10; Start 10/16/19 at 07:00; Stop 10/17/19 at 06:59 Ringer's Solution 1,000 ml @ 30 mls/hr Q24H IV ; Start 10/16/19 at 07:00; Stop 10/16/19 at 18:59 Lidocaine HCl (Xylocaine-Mpf 1% 2ml Vial) 2 ml PRN 1X PRN ID PRIOR TO IV START; Start 10/16/19 at 07:00; Stop 10/17/19 at 06:59 Hydromorphone HCl (Dilaudid) 0.5 mg PRN Q10MIN PRN IV SEV PAIN, Second choice; Start 10/16/19 at 07:00; Stop 10/17/19 at 06:59 Prochlorperazine Edisylate (Compazine) 5 mg PACU PRN PRN IV NAUSEA, MRX1; Start 10/16/19 at 07:00; Stop 10/17/19 at 06:59 Lidocaine/ Epinephrine (LIDOCAINE 1%-EPI 1:100,000 Multi-Dose) 19 ml 1X ONCE INJ Last administered on 10/15/19at 14:54; Start 10/15/19 at 15:00; Stop 10/15/19 at 15:01; Status DC Sodium Chloride 1,000 ml @ 1,000 mls/hr Q1H PRN IV hypotension; Start 10/15/19 at 16:04; Stop 10/15/19 at 22:03; Status DC Acetaminophen (Tylenol) 500 mg 1X PRN PRN PO MILD PAIN / TEMP; Start 10/15/19 at 16:15; Stop 10/16/19 at 16:14 Diphenhydramine HCl (Benadryl) 25 mg 1X PRN PRN IV ITCHING; Start 10/15/19 at 16:15; Stop 10/16/19 at 16:14 Diphenhydramine HCl (Benadryl) 25 mg 1X PRN PRN IV ITCHING; Start 10/15/19 at 16:15; Stop 10/16/19 at 16:14 Sodium Chloride 1,000 ml @ 400 mls/hr Q2H30M PRN IV PATENCY; Start 10/15/19 at 16:04; Stop 10/16/19 at 04:03; Status DC Info (PHARMACY MONITORING -- do not chart) 1 each PRN DAILY PRN MC SEE COMMENTS; Start 10/15/19 at 16:15; Status Cancel Sodium Chloride 1,000 ml @ 1,000 mls/hr Q1H PRN IV hypotension; Start 10/16/19 at 10:40; Stop 10/16/19 at 16:39 Albumin Human 200 ml @ 200 mls/hr 1X PRN PRN IV Hypotension; Start 10/16/19 at 10:45; Stop 10/16/19 at 16:44 Sodium Chloride 1,000 ml @ 400 mls/hr Q2H30M PRN IV PATENCY; Start 10/16/19 at 10:40; Stop 10/16/19 at 22:39 Info (PHARMACY MONITORING -- do not chart) 1 each PRN DAILY PRN MC SEE COMMENTS; Start 10/16/19 at 10:45; Status UNV Info (PHARMACY MONITORING -- do not chart) 1 each PRN DAILY PRN MC SEE COMMENTS; Start 10/16/19 at 10:45 Active Scripts Active Tramadol Hcl 50 Mg Tablet 50 Mg PO PRN Q6HRS PRN 3 Days Culturelle (Lactobacillus Rhamnosus Gg) 1 Each Cap.sprink 1 Cap PO BID 7 Days [Fluconazole] 100 MG Tablet 100 Mg PO DAILY 7 Days Doxycycline Hyclate 100 Mg Tablet 100 Mg PO BID 7 Days Amox Tr-K Clv 500-125 Mg Tab (Amoxicillin/Potassium Clav) 1 Each Tablet 1 Tab PO DAILY 7 Days Aspirin Ec (Aspirin) 81 Mg Tablet. 81 Mg PO DAILYWBKFT Reported Glyburide 5 Mg Tablet 5 Mg PO DAILY Lantus Solostar (Insulin Glargine,Hum.rec.anlog) 100 Unit/1 Ml Insuln.pen 10 Unit SQ QHS Humalog (Insulin Lispro) 100 Unit/1 Ml Cartridge 100 Unit SQ TIDWMEALS Omeprazole 20 Mg Tablet. 20 Mg PO DAILY Calcitriol 0.5 Mcg Capsule 0.5 Mcg PO DAILY Furosemide 80 Mg Tablet 80 Mg PO BID Glucagen (Glucagon,Human Recombinant) 1 Mg Vial 1 PRN PRN Tamsulosin Hcl 0.4 Mg Cap.er.24h 1 Cap PO HS Montelukast Sodium Tablet (Montelukast Sodium) 10 Mg Tablet 1 Tab PO HS PRN Ondansetron Odt (Ondansetron) 4 Mg Tab.rapdis 1 Tab PO PRN Q6-8HRS PRN Lantus Solostar (Insulin Glargine,Hum.rec.anlog) 100 Unit/1 Ml Insuln.pen 11 Unit SQ QHS Humalog (Insulin Lispro) 100 Unit/1 Ml Cartridge 22 Unit SQ TIDWMEALS Cozaar (Losartan Potassium) 100 Mg Tablet 100 Mg PO HS Carvedilol 25 Mg Tablet 25 Mg PO BIDWMEALS Atorvastatin Calcium 40 Mg Tablet 40 Mg PO HS Amlodipine Besylate 10 Mg Tablet 10 Mg PO DAILY Vitals/I & O Vital Sign - Last 24 Hours 10/15/19 10/15/19 10/15/19 1/27/20 20:00 20:00 21:00 23:30 Temp 97.4 97.5 97.4 97.5 Pulse 95 91 52 Resp 18 18 B/P (MAP) 108/62 (77) 145/88 139/51 (80) Pulse Ox 94 97 O2 Delivery Nasal Cannula Room Air Room Air O2 Flow Rate 2.0 10/16/19 10/16/19 03:30 07:00 Temp 97.6 98.1 97.6 98.1 Pulse 98 98 Resp 18 16 B/P (MAP) 104/67 (79) 129/61 (83) Pulse Ox 99 98 O2 Delivery Nasal Cannula Room Air O2 Flow Rate 2.0 Intake and Output 10/15/19 10/15/19 10/16/19 15:00 23:00 07:00 Intake Total 0 ml Balance 0 ml Nutrition Consultation Dietary Evaluation: Recommendations by RD: Dietary education by RD, PPN/TPN Comments: REC continue PPN until PEG placed and able to use for nutrition REC mvi and vit c per wound protocal due to multiple skin breakdown areas - See wound assessment Expected Outcomes/Goals: to meet >75% est nutr needs Interpretation of weight loss: >5% in 1 month Malnutrition Findings: Food and Nutrition Intake (Sev: <50% est energy req 5days Body Fat Depletion (Non Severe: Mild Depletion Weight Status: Underweight Hemodynamically unstable?: No Is patient in severe pain?: No Is NPO status required?: Yes RICKIE GRAMAJO MD Oct 16, 2019 14:29
[2019-10-16] MEDS: IV NORMAL SALINE 1000ML BAG 1,000 ML IV SCH (14:45)
[2019-10-16] MEDS: DEXTROSE 50% 25 GM / 50ML DISP.SYRIN. IV PRN ×2 (15:03→15:29)
--- NOTE | 2019-10-16 15:10 | NUR ---
Wound Care: Attempted to see patient per wound care. Spoke with RN whom stated patient in dialysis and then will be going to surgery following. Wound care will see patient tomorrow.
[2019-10-16] MEDS ORDERED: LIDOCAINE 2% PF 5 ML VIAL. ONE (15:34)
[2019-10-16] MEDS ORDERED: ONDANSETRON PF 4 MG/2 ML VIAL. ONE (15:34)
[2019-10-16] MEDS ORDERED: PROPOFOL 20 ML IV ONE (15:34)
[2019-10-16] MEDS ORDERED: DEXAMETHASONE SOD PHOS 4 MG/ML VIAL ONE (15:34)
[2019-10-16] MEDS ORDERED: ROCURONIUM 50 MG/5 ML VIAL. ONE (15:34)
[2019-10-16] MEDS ORDERED: BUPIVACAINE-EPI 0.5%-1:200000 MPF 30 ML VIAL. ONE (15:44)
[2019-10-16] MEDS ORDERED: KETAMINE HCL IN NACL, ISO-OSM 50 MG/5 ML SYRINGE ONE (16:03)
[2019-10-16] MEDS ORDERED: MIDAZOLAM HCL/PF 2 MG/2 ML VIAL. ONE (16:03)
--- NOTE | 2019-10-16 16:51 | PDOC4 ---
Operative Note Operative Note Operative Note: Preoperative Diagnosis: Renal failure Postoperative Diagnosis: Same Procedure: Removal of peritoneal dialysis catheter Surgeon: [facility] Anesthesia: Local MAC EBL: 5 mL Specimen: None Drains: None Complications: None Indication: The patient is a 53-year-old male who has renal failure and had a peritoneal dialysis catheter placed. He has other medical issues and does not appear suitable to continue with peritoneal dialysis. A request was made for removal of his catheter. The risks of surgery were discussed with the patient. He understands and would like to proceed. Description: The patient was taken to the operating room and placed supine on the operating table. Monitored anesthesia care was provided. The abdomen was prepped with ChloraPrep and draped in a standard surgical manner. The skin was infiltrated with 1% lidocaine with epinephrine. A skin incision was made at the site of the prior PD catheter insertion. Cautery dissection was carried down to the catheter. The distal cuff was mobilized from the fascial layer. The fascia was reapproximated with 0 Vicryl in a [id number] fashion. The proximal cuff was then mobilized as well in the subcutaneous space. The entire catheter was able to be removed and discarded. Hemostasis was achieved with cautery. The subcutaneous tissues closed with 3-0 Vicryl. The skin was approximated with 4-0 Monocryl. Steri-Strips and dressings were applied. The patient tolerated the procedure well and was sent to the recovery room in stable condition. At the end of the case all counts were correct. KINGS KENT MD Oct 16, 2019 16:51
--- NOTE | 2019-10-16 17:32 | PDOC ---
PROGRESS NOTES Assessment Assessment Metabolic encephalopathy. Dementia? Dysphagia, no evidence of neuromuscular junction disease. Leukocytosis. Diabetic ketoacidosis. Hyperglycemia. Hypoglycemia. Chronic balanitis. End-stage renal disease on dialysis Anemia of chronic disease. HTN. HLD. COPD. CAD, s/p [place]. RECOMMENDATIONS/PLAN: Treat medical diseases. Control hyper and hypoglycemia. OT/PT. Past Medical History Cardiovascular: CAD, HTN, [place], Hyperlipidemia Pulmonary: COPD CENTRAL NERVOUS SYSTEM: Periperal neuropathy Psych: Anxiety, Depression Musculoskeletal: Osteoarthritis Renal/: Chronic renal failure ( peritoneal dialysis), Other (balanitis) Endocrine: Diabetes ( type I) Past Surgical History Coronary angioplasty, dialysis center, peritoneal dialysis catheter, arthroscopic knee, fasciotomy, facial fractures, left foot, sinus. Family History Cancer Social History Used to use alcohol heavily, marijuana, other street drugs, still smokes tobacco, unemployed for over 3 years, Allergies Coded Allergies: Lamotrigine (Verified Allergy, Severe, HIVES, SHORTNESS OF BREATH, 08/27/19) ROS Negative for fever, chills, weight loss, shortness of breath, chest pain, indigestion, hematochezia, melena, and dysuria. Full 14-point review of systems is negative. MEDICATIONS: Refer to [facility] PHYSICAL EXAMINATION: General appearance in subacute distress. HEENT: Normocephalic and nontraumatic. Eyes, nose, ears, and throat are unremarkable. Hearing decrease. Neck is supple. No lymphadenopathy. No Crepitus. Cardiovascular: S1, S2. Pulmonary: Mildly decreased to auscultation bilaterally. Abdomen: Bowel sounds are positive. Extremities: No rash, lesions, or edema. No restriction of range of motion NEUROLOGICAL EXAMINATION: Drowsiness. Not oriented to time, but knew place and person. PERRL. EOMI. CN: no focal findings. Muscle tone: within normal. Muscle strength: 4+ DTR: 1-2 Plantar reflex: Neutral response bilaterally Gait: not examined in bed. Sensory exam: no abnormal findings. No cerebellar signs elicited. F-T-N test fine. Objective Objective Vital Signs Date Time Temp Pulse Resp B/P (MAP) Pulse Ox O2 Delivery O2 Flow Rate FiO2 10/16/19 17:23 97 22 130/29 Simple Mask 10 10/16/19 16:53 97.6 93 97.6 Intake and Output 10/16/19 07:00 Intake Total 0 ml Balance 0 ml Intake Oral 0 ml # Bowel Movements 2 Vitals Signs Vitals VS - Last 72 Hours, by Label Date Time Temp Pulse Resp B/P (MAP) Pulse Ox O2 Delivery O2 Flow Rate FiO2 10/16/19 17:23 97 22 130/29 Simple Mask 10 10/16/19 17:08 98 22 133/55 Simple Mask 10 10/16/19 16:53 Mask 10 10/16/19 16:53 97.6 92 20 92/53 93 Simple Mask 10 97.6 10/16/19 14:34 97.2 106 19 103/51 98 Room Air 2.0 97.2 10/16/19 07:00 98.1 98 16 129/61 (83) 98 Room Air 98.1 10/16/19 03:30 97.6 98 18 104/67 (79) 99 Nasal Cannula 2.0 97.6 10/15/19 23:30 97.5 52 18 139/51 (80) 97 Room Air 97.5 10/15/19 21:00 91 145/88 10/15/19 20:00 Room Air 10/15/19 20:00 97.4 95 18 108/62 (77) 94 Nasal Cannula 2.0 97.4 10/15/19 11:00 97.4 91 20 145/88 (107) 96 Room Air 97.4 10/15/19 08:00 Nasal Cannula 2.0 10/15/19 07:00 97.4 91 20 147/55 (85) 100 Nasal Cannula 2.0 97.4 Laboratory Laboratory Laboratory Tests Test 10/15/19 23:52 10/16/19 06:37 10/16/19 07:10 10/16/19 07:41 Glucose (Fingerstick) 85 mg/dL (70-99) 271 mg/dL (70-99) 245 mg/dL (70-99) White Blood Count 10.3 x10^3/uL (4.0-11.0) Red Blood Count 2.85 x10^6/uL (4.30-5.70) Hemoglobin 8.4 g/dL (13.0-17.5) Hematocrit 26.8 % (39.0-53.0) Mean Corpuscular Volume 94 fL (79-100) Mean Corpuscular Hemoglobin 30 pg (25-35) Mean Corpuscular Hemoglobin Concent 32 g/dL (31-37) Red Cell Distribution Width 17.1 % (11.5-14.5) Platelet Count 278 x10^3/uL (140-400) Neutrophils (%) (Auto) 87 % (31-73) Lymphocytes (%) (Auto) 6 % (24-48) Monocytes (%) (Auto) 6 % (0-9) Eosinophils (%) (Auto) 1 % (0-3) Basophils (%) (Auto) 0 % (0-3) Neutrophils # (Auto) 9.0 x10^3/uL (1.8-7.7) Lymphocytes # (Auto) 0.6 x10^3/uL (1.0-4.8) Monocytes # (Auto) 0.6 x10^3/uL (0.0-1.1) Eosinophils # (Auto) 0.0 x10^3/uL (0.0-0.7) Basophils # (Auto) 0.0 x10^3/uL (0.0-0.2) Prothrombin Time 17.4 SEC (11.7-14.0) Prothromb Time International Ratio 1.5 (0.8-1.1) Sodium Level 131 mmol/L (136-145) Potassium Level 4.2 mmol/L (3.5-5.1) Chloride Level 96 mmol/L (98-107) Carbon Dioxide Level 29 mmol/L (21-32) Anion Gap 6 (6-14) Blood Urea Nitrogen 39 mg/dL (8-26) Creatinine 4.5 mg/dL (0.7-1.3) Estimated GFR (Cockcroft-Gault) 13.7 Glucose Level 284 mg/dL (70-99) Calcium Level 8.1 mg/dL (8.5-10.1) Test 10/16/19 14:56 10/16/19 15:00 10/16/19 15:27 10/16/19 15:57 Glucose (Fingerstick) 30 mg/dL (70-99) 26 mg/dL (70-99) 59 mg/dL (70-99) 88 mg/dL (70-99) Test 10/16/19 17:05 Glucose (Fingerstick) 80 mg/dL (70-99) Microbiology 10/12/19 Blood Culture - Preliminary, Resulted NO GROWTH AFTER 4 DAYS 10/08/19 Aerobic Culture - Final, Complete 10/08/19 Aerobic Culture Result 1 (HEATHER) - Final, Complete 10/08/19 Gram Stain - Final, Complete 10/08/19 Gram Stain Result 1 (HEATHER) - Final, Complete 10/08/19 Gram Stain Result 2 (HEATHER) - Final, Complete Medication Medications Current Medications Albumin Human 200 ml @ 200 mls/hr 1X PRN PRN IV Hypotension; Start 10/16/19 at 10:45; Stop 10/16/19 at 16:44; Status DC Bupivacaine HCl/ Epinephrine Bitart (Sensorcain-Epi 0.5%-1:221999 Mpf) 30 ml STK-MED ONCE .ROUTE Last administered on 10/16/19at 16:15; Start 10/16/19 at 15:44; Stop 10/16/19 at 15:44; Status DC Darbepoetin Zaid (ARANESP for DIALYSIS PTS) 60 mcg WEEKLYHS SQ Last administered on 10/15/19at 23:41; Start 10/15/19 at 21:00 Dexamethasone Sodium Phosphate (Decadron) 4 mg STK-MED ONCE .ROUTE ; Start 10/16/19 at 15:34; Stop 10/16/19 at 15:34; Status DC Fentanyl Citrate (Fentanyl 2ml Vial) 25 mcg PRN Q5MIN PRN IV MILD PAIN 1-3; Start 10/16/19 at 07:00; Stop 10/17/19 at 06:59 Fentanyl Citrate (Fentanyl 2ml Vial) 50 mcg PRN Q5MIN PRN IV MODERATE TO SEVERE PAIN; Start 10/16/19 at 07:00; Stop 10/17/19 at 06:59 Hydromorphone HCl (Dilaudid) 0.5 mg PRN Q10MIN PRN IV SEV PAIN, Second choice; Start 10/16/19 at 07:00; Stop 10/17/19 at 06:59 Info (PHARMACY MONITORING -- do not chart) 1 each PRN DAILY PRN MC SEE COMMENTS; Start 10/16/19 at 10:45 Info (PHARMACY MONITORING -- do not chart) 1 each PRN DAILY PRN MC SEE COMMENTS; Start 10/16/19 at 10:45; Status UNV Ketamine HCl (Ketamine) 50 mg STK-MED ONCE .ROUTE ; Start 10/16/19 at 16:03; Stop 10/16/19 at 16:03; Status DC Lidocaine HCl (Lidocaine Pf 2% Vial) 5 ml STK-MED ONCE .ROUTE ; Start 10/16/19 at 15:34; Stop 10/16/19 at 15:34; Status DC Lidocaine HCl (Xylocaine-Mpf 1% 2ml Vial) 2 ml PRN 1X PRN ID PRIOR TO IV START; Start 10/16/19 at 07:00; Stop 10/17/19 at 06:59 Midazolam HCl (Versed) 2 mg STK-MED ONCE .ROUTE ; Start 10/16/19 at 16:03; Stop 10/16/19 at 16:03; Status DC Morphine Sulfate (Morphine Sulfate) 1 mg PRN Q10MIN PRN IV SEVERE PAIN 7-10; Start 10/16/19 at 07:00; Stop 10/17/19 at 06:59 Ondansetron HCl (Zofran) 4 mg PRN Q6HRS PRN IV NAUSEA/VOMITING; Start 10/16/19 at 07:00; Stop 10/17/19 at 06:59 Ondansetron HCl (Zofran) 4 mg STK-MED ONCE .ROUTE ; Start 10/16/19 at 15:34; Stop 10/16/19 at 15:35; Status DC Prochlorperazine Edisylate (Compazine) 5 mg PACU PRN PRN IV NAUSEA, MRX1; Start 10/16/19 at 07:00; Stop 10/17/19 at 06:59 Propofol 20 ml @ As Directed STK-MED ONCE IV ; Start 10/16/19 at 15:34; Stop 10/16/19 at 15:34; Status DC Ringer's Solution 1,000 ml @ 30 mls/hr Q24H IV ; Start 10/16/19 at 07:00; Stop 10/16/19 at 18:59 Rocuronium Palm (Zemuron) 50 mg STK-MED ONCE .ROUTE ; Start 10/16/19 at 15:34; Stop 10/16/19 at 15:35; Status DC Sodium Chloride 1,000 ml @ 30 mls/hr Q24H IV ; Start 10/16/19 at 14:45 Sodium Chloride 1,000 ml @ 400 mls/hr Q2H30M PRN IV PATENCY; Start 10/16/19 at 10:40; Stop 10/16/19 at 22:39 Sodium Chloride 1,000 ml @ 1,000 mls/hr Q1H PRN IV hypotension; Start 10/16/19 at 10:40; Stop 10/16/19 at 16:39; Status DC Comment Review of Relevant I have reviewed the following items alex (where applicable) has been applied. LISETTE PADILLA MD Oct 16, 2019 17:32
[2019-10-16] MEDS: MICAFUNGIN 100 MG in IV DEXTROSE 5% 100ML 100 ML IV SCH (18:20)
[2019-10-16 19:35] VITALS: BP 141/61
[2019-10-16] MEDS: TAMSULOSIN 0.4 MG CAP.ER.24H. PO SCH (21:00)
[2019-10-16] MEDS: INSULIN GLARGINE SYRINGE. SQ SCH (21:00)
[2019-10-16] MEDS: ATORVASTATIN CALCIUM 40 MG TABLET. PO SCH (21:00)
[2019-10-16] MEDS: LOSARTAN POTASSIUM 50 MG TABLET. PO SCH (21:00)
[2019-10-16 23:35] VITALS: BP 125/74
[2019-10-17] VITALS (15 sets, daily range): BP systolic 106–160; BP diastolic 38–74
[2019-10-17] MEDS: INSULIN LISPRO 300 UNITS/3 ML VIAL. SQ SCH ×7 (06:39→16:26)
[2019-10-17 06:44] LABS: BASO % 0 % (0-3); EOS % 1 % (0-3); HEMATOCRIT 24.7 % (39.0-53.0); HEMOGLOBIN 7.7 g/dL (13.0-17.5); LYMPH # 0.7 x10^3/uL (1.0-4.8); LYMPH % 8 % (24-48); MEAN CORPUSCULAR HEMOGLOBIN 30 pg (25-35); MEAN CORPUSCULAR HGB CONC 31 g/dL (31-37); MEAN CORPUSCULAR VOLUME 96 fL (79-100); MONO # 0.6 x10^3/uL (0.0-1.1); MONO % 7 % (0-9); NEUT # 7.3 x10^3/uL (1.8-7.7); NEUT % 84 % (31-73); PLATELET COUNT 220 x10^3/uL (140-400); RED BLOOD COUNT 2.57 x10^6/uL (4.30-5.70); RED CELL DISTRIBUTION WIDTH 16.4 % (11.5-14.5); WHITE BLOOD COUNT 8.7 x10^3/uL (4.0-11.0)
[2019-10-17 06:50] LABS: CALCIUM 8.2 mg/dL (8.5-10.1); CREATININE 3.4 mg/dL (0.7-1.3); POTASSIUM 4.4 mmol/L (3.5-5.1)
[2019-10-17 07:14] LABS: RVP ADENOVIRUS Negative (Negative); RVP INFLUENZA A Negative (Negative); RVP INFLUENZA B Negative (Negative); RVP METAPNEUMOVIRUS Positive (Negative); RVP PARAINFLUENZA 1 Negative (Negative); RVP PARAINFLUENZA 2 Negative (Negative); RVP PARAINFLUENZA 3 Negative (Negative); RVP RHINOVIRUS Negative (Negative); RVP RSV A Negative (Negative); RVP RSV B Negative (Negative)
[2019-10-17] MEDS: PANTOPRAZOLE IV PUSH 40 MG VIAL. IVP SCH (07:30)
--- NOTE | 2019-10-17 07:41 | NUR ---
Pt with open site noted on buttocks looks like from possibly a blister. Pictures taken the previous day of buttocks. Covered wound with foam dressing will continue to monitor. Report given to day nurse.
[2019-10-17] MEDS: ASPIRIN ENTERIC COATED 81 MG TABLET.DR. PO SCH (08:00)
[2019-10-17] MEDS: CALCIUM ACETATE 667 MG CAPSULE PO SCH ×3 (08:00→16:26)
[2019-10-17] MEDS: IV NORMAL SALINE 1000ML BAG 1,000 ML IV SCH (08:44)
[2019-10-17] MEDS ORDERED: IV NORMAL SALINE 1000ML BAG 1,000 ML IV SCH (08:45)
[2019-10-17] MEDS ORDERED: LIDOCAINE 2% PF 5 ML VIAL. ONE (08:49)
[2019-10-17] MEDS ORDERED: PROPOFOL 20 ML IV ONE (08:49)
[2019-10-17] MEDS: INSULIN GLARGINE SYRINGE. SQ SCH ×2 (09:00→21:27)
[2019-10-17] MEDS ORDERED: DEXTROSE 50% 25 GM / 50ML DISP.SYRIN. IV PRN (09:00)
[2019-10-17] MEDS: FUROSEMIDE 40 MG/4 ML VIAL. IVP SCH ×2 (09:00→14:19)
[2019-10-17] MEDS: MEROPENEM 500 MG in IV NORMAL SALINE 50ML 50 ML IV SCH (09:00)
[2019-10-17] MEDS ORDERED: IV DEXTROSE 5% 250 ML BAG. IV PRN (09:00)
[2019-10-17] MEDS: LACTOBACILLUS RHAMNOSUS GG 1 CAPSULE. PO SCH ×2 (09:00→21:25)
--- NOTE | 2019-10-17 09:13 | PDOC4 ---
Operative Note Operative Note EGD with PEG placement Meds propofol per anesthesia pre-op dx Oropharyngeal dysphagia post-op dx antral gastritis s/p PEG placement Plan begin feedings later today at 30 cc/hr and increase to 60 cc/hr in am KINGS FREGOSO MD Oct 17, 2019 09:13
--- NOTE | 2019-10-17 10:48 | PDOC ---
Renal-Progress Notes Subjective Notes Notes NO NEW COMPLAINTS History of Present Illness Hx of present illness NO CHANGE Vitals Vitals Vital Signs Date Time Temp Pulse Resp B/P (MAP) Pulse Ox O2 Delivery O2 Flow Rate FiO2 10/17/19 09:47 98.0 98 16 116/58 98 Room Air 98.0 Nasal Cannula 10/17/19 09:17 2.0 Weight Weight [ ] I.O. Intake and Output Intake and Output 10/17/19 07:00 Intake Total 300 ml Output Total 5 ml Balance 295 ml Intake Oral 0 ml IV Total 300 ml Estimated Blood Loss 5 ml # Voids 1 # Bowel Movements 5 Labs Labs Laboratory Tests Test 10/16/19 14:56 10/16/19 15:00 10/16/19 15:27 10/16/19 15:57 Glucose (Fingerstick) 30 mg/dL (70-99) 26 mg/dL (70-99) 59 mg/dL (70-99) 88 mg/dL (70-99) Test 10/16/19 17:05 10/16/19 18:42 10/16/19 22:43 10/17/19 06:00 Glucose (Fingerstick) 80 mg/dL (70-99) 81 mg/dL (70-99) 167 mg/dL (70-99) White Blood Count 8.7 x10^3/uL (4.0-11.0) Red Blood Count 2.57 x10^6/uL (4.30-5.70) Hemoglobin 7.7 g/dL (13.0-17.5) Hematocrit 24.7 % (39.0-53.0) Mean Corpuscular Volume 96 fL (79-100) Mean Corpuscular Hemoglobin 30 pg (25-35) Mean Corpuscular Hemoglobin Concent 31 g/dL (31-37) Red Cell Distribution Width 16.4 % (11.5-14.5) Platelet Count 220 x10^3/uL (140-400) Neutrophils (%) (Auto) 84 % (31-73) Lymphocytes (%) (Auto) 8 % (24-48) Monocytes (%) (Auto) 7 % (0-9) Eosinophils (%) (Auto) 1 % (0-3) Basophils (%) (Auto) 0 % (0-3) Neutrophils # (Auto) 7.3 x10^3/uL (1.8-7.7) Lymphocytes # (Auto) 0.7 x10^3/uL (1.0-4.8) Monocytes # (Auto) 0.6 x10^3/uL (0.0-1.1) Eosinophils # (Auto) 0.0 x10^3/uL (0.0-0.7) Basophils # (Auto) 0.0 x10^3/uL (0.0-0.2) Erythrocyte Sedimentation Rate > 130 (0-15) Sodium Level 133 mmol/L (136-145) Potassium Level 4.4 mmol/L (3.5-5.1) Chloride Level 97 mmol/L (98-107) Carbon Dioxide Level 27 mmol/L (21-32) Anion Gap 9 (6-14) Blood Urea Nitrogen 29 mg/dL (8-26) Creatinine 3.4 mg/dL (0.7-1.3) Estimated GFR (Cockcroft-Gault) 19.0 Glucose Level 356 mg/dL (70-99) Calcium Level 8.2 mg/dL (8.5-10.1) Test 10/17/19 06:31 10/17/19 10:22 Glucose (Fingerstick) 346 mg/dL (70-99) 280 mg/dL (70-99) Micro Micro Microbiology 10/12/19 Blood Culture - Preliminary, Resulted NO GROWTH AFTER 4 DAYS 10/08/19 Aerobic Culture - Final, Complete 10/08/19 Aerobic Culture Result 1 (HEATHER) - Final, Complete 10/08/19 Gram Stain - Final, Complete 10/08/19 Gram Stain Result 1 (HEATHER) - Final, Complete 10/08/19 Gram Stain Result 2 (HEATHER) - Final, Complete Review of Systems Constitutional: yes: alert, oriented Ears/Nose/Throat: Yes: no symptom reported Eyes: Yes: no symptom reported Pulmonary: Yes no symptom reported Gastrointestional: Yes: nausea, constipation Genitourinary: Yes: no symptom reported Musculoskeletal: Yes: muscle stiffness Skin: Yes no symptom reported Psychiatric/Neurological: Yes: no symptom reported Endocrine: Yes: no symptom reported Physical Exam General Appearance: no apparent distress Skin: warm Respiratory: decreased breath sounds Heart: S1S2, no thrills Abdomen: soft, bowel sounds present Genitourinary: bladder flat Extremities: pulses present Neurology: alert, oriented Musculoskeletal: Osteoarthritis Assessment Assessment IMP ESRD LEUCOCYTOSIS FAILURE TO THRIVE ON PD ENCEPHALOPATHY-IMPROVED CHRONIC BALANITIS DM II WITH DKA ANEMIA OF ESRD DECONDITIONING DYSPHAGIA PAD S/P TDC PLAN HD TODAY UF TO DW STARTED FATOUMATA VILLALTA TO SET UP OP HD PEG TF TO START SOON WILL FOLLOW ARCHIE BAUTISTA MD Oct 17, 2019 10:48
--- NOTE | 2019-10-17 11:37 | PDOC ---
Infectious Disease Note Subjective Subjective pt is feeling ok, ROS ROS no n/v/d/ Vital Sign Vital Signs Vital Signs Date Time Temp Pulse Resp B/P (MAP) Pulse Ox O2 Delivery O2 Flow Rate FiO2 10/17/19 09:47 98.0 98 16 116/58 98 Room Air 98.0 Nasal Cannula 10/17/19 09:17 2.0 Physical Exam PHYSICAL EXAM GENERAL: Alert today. in bed - NAD - coop HEENT: Normocephalic, atraumatic, anicteric. No thrush. NECK: No tenderness. Supple, no JVD, LUNGS: Clear. HEART: S1, S2. ABDOMEN: Soft. PD catheter in place, nontender, nondistended. GENITOURINARY: Penile swelling, min redness with eschar like lesion,, No purulence noted - No drainage today - still painful EXTREMITIES: no pedal edema/swelling/joint pain or erythema SKIN: Dry skin. No cyanosis.superficial skin erythema on back pressure changes NEUROLOGIC:Answering questions well. appropriate PSYCHIATRIC flat Labs Lab Laboratory Tests Test 10/16/19 14:56 10/16/19 15:00 10/16/19 15:27 10/16/19 15:57 Glucose (Fingerstick) 30 mg/dL (70-99) 26 mg/dL (70-99) 59 mg/dL (70-99) 88 mg/dL (70-99) Test 10/16/19 17:05 10/16/19 18:42 10/16/19 22:43 10/17/19 06:00 Glucose (Fingerstick) 80 mg/dL (70-99) 81 mg/dL (70-99) 167 mg/dL (70-99) White Blood Count 8.7 x10^3/uL (4.0-11.0) Red Blood Count 2.57 x10^6/uL (4.30-5.70) Hemoglobin 7.7 g/dL (13.0-17.5) Hematocrit 24.7 % (39.0-53.0) Mean Corpuscular Volume 96 fL (79-100) Mean Corpuscular Hemoglobin 30 pg (25-35) Mean Corpuscular Hemoglobin Concent 31 g/dL (31-37) Red Cell Distribution Width 16.4 % (11.5-14.5) Platelet Count 220 x10^3/uL (140-400) Neutrophils (%) (Auto) 84 % (31-73) Lymphocytes (%) (Auto) 8 % (24-48) Monocytes (%) (Auto) 7 % (0-9) Eosinophils (%) (Auto) 1 % (0-3) Basophils (%) (Auto) 0 % (0-3) Neutrophils # (Auto) 7.3 x10^3/uL (1.8-7.7) Lymphocytes # (Auto) 0.7 x10^3/uL (1.0-4.8) Monocytes # (Auto) 0.6 x10^3/uL (0.0-1.1) Eosinophils # (Auto) 0.0 x10^3/uL (0.0-0.7) Basophils # (Auto) 0.0 x10^3/uL (0.0-0.2) Erythrocyte Sedimentation Rate > 130 (0-15) Sodium Level 133 mmol/L (136-145) Potassium Level 4.4 mmol/L (3.5-5.1) Chloride Level 97 mmol/L (98-107) Carbon Dioxide Level 27 mmol/L (21-32) Anion Gap 9 (6-14) Blood Urea Nitrogen 29 mg/dL (8-26) Creatinine 3.4 mg/dL (0.7-1.3) Estimated GFR (Cockcroft-Gault) 19.0 Glucose Level 356 mg/dL (70-99) Calcium Level 8.2 mg/dL (8.5-10.1) Test 10/17/19 06:31 10/17/19 10:22 Glucose (Fingerstick) 346 mg/dL (70-99) 280 mg/dL (70-99) Micro Microbiology 10/12/19 Blood Culture - Preliminary, Resulted NO GROWTH AFTER 2 DAYS 10/08/19 Aerobic Culture - Final, Complete 10/08/19 Aerobic Culture Result 1 (HEATHER) - Final, Complete 10/08/19 Gram Stain - Final, Complete 10/08/19 Gram Stain Result 1 (HEATHER) - Final, Complete 10/08/19 Gram Stain Result 2 (HEATHER) - Final, Complete Objective Assessment Fever 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 Leukocytosis - better - cults neg 2. Acute Encephalopathy - some better - Ammonia nml. TSH pending MRI - neg and CT with acute on chronic sinuses 3. DKA 4. Balanitis chronic 5. Anemia of chronic disease. 6. End-stage renal disease, on peritoneal dialysis. 7. Peripheral vascular disease. 8. Metapneumo + Plan Plan of Care Meropenem , d/c Neuropathy per primary Need Urology f/u F/u labs and cults - neg so far Local wound care pd cath will be out today, then peg D/w nursing d/w brother WANDA STACY MD Oct 17, 2019 11:36
[2019-10-17] MEDS ORDERED: INSU100V8 SQ (12:06)
[2019-10-17] MEDS ORDERED: INSU100I11 SQ (12:06)
--- NOTE | 2019-10-17 12:08 | SNU/HH DC ---
DISCHARGE ORDERS DISCHARGE INFORMATION: DISCHARGE DATE: Oct 17, 2019 CONDITION ON DISCHARGE: Stable CODE STATUS: Code Status: Full FDC: SNF STAY <30 DAYS: Yes HOSPICE: HOSPICE: No HOSPICE EVAL & TREAT: No LTAC: ADMIT TO LTAC: No POST DISCHARGE ORDERS: ACTIVITY ORDERS: Activity as tolerated WEIGHT BEARING STATUS: As tolerated DIET AFTER DISCHARGE: PEG CHECKS AFTER DISCHARGE: CHECKS AFTER DISCHARGE: Check blood press - daily, Check blood sugar, ac/hs, Check your Temp as needed, Weigh Yourself Daily TREATMENT/EQUIPMENT ORDERS: ADAPTIVE EQUIPMENT NEEDED: None Physical Therapy For: Evalulation/Treatment Occupational Therapy For: Evaluation/Treatment DISCHARGE MEDICATIONS: Home Meds Active Scripts Insulin Lispro (HUMALOG) 100 Unit/1 Ml Insuln.pen, 6 UNITS SQ Q6HRS for dm 2 for 30 Days, EACH Prov:RICKIE GRAMAJO MD 10/17/19 Insulin Glargine,Hum.rec.anlog (LANTUS) 100 Unit/1 Ml Vial, 25 UNIT SQ QHS for dm 2 for 30 Days, EACH Prov:RICKIE GRAMAJO MD 10/17/19 Tramadol Hcl (TRAMADOL HCL) 50 Mg Tablet, 50 MG PO PRN Q6HRS PRN for MODERATE PAIN for 3 Days, #12 TAB Prov:JOSE SOLANO MD 09/16/19 Lactobacillus Rhamnosus Gg (CULTURELLE) 1 Each Cap.sprink, 1 CAP PO BID for Diarrhea for 7 Days, #14 CAP Prov:JOSE SOLANO MD 09/16/19 Aspirin (ASPIRIN EC) 81 Mg Tablet., 81 MG PO DAILYWBKFT for PAD, #30 TAB.SR Prov:RICKIE GRAMAJO MD 08/09/19 Reported Medications Glyburide (GLYBURIDE) 5 Mg Tablet, 5 MG PO DAILY for diabetes, TAB 10/03/19 Omeprazole (OMEPRAZOLE) 20 Mg Tablet.dr, 20 MG PO DAILY for acid reflux, TAB 08/06/19 Calcitriol (CALCITRIOL) 0.5 Mcg Capsule, 0.5 MCG PO DAILY for supplement, CAP 08/06/19 Furosemide (FUROSEMIDE) 80 Mg Tablet, 80 MG PO BID for diuretic, TAB 08/06/19 Tamsulosin Hcl (TAMSULOSIN HCL) 0.4 Mg Cap.er.24h, 1 CAP PO HS for urinary retentrion, #30 CAP 5 Refills 10/13/18 Montelukast Sodium (MONTELUKAST SODIUM TABLET ) 10 Mg Tablet, 1 TAB PO HS PRN for ALLERGIES, #30 TAB 5 Refills 10/13/18 Ondansetron (ONDANSETRON ODT) 4 Mg Tab.rapdis, 1 TAB PO PRN Q6-8HRS PRN for NAUSEA, #16 TAB 10/13/18 Losartan Potassium (COZAAR) 100 Mg Tablet, 100 MG PO HS for HYPERTENSION, TAB 10/13/18 Carvedilol (CARVEDILOL) 25 Mg Tablet, 25 MG PO BIDWMEALS for CARDIAC, TAB 10/13/18 Atorvastatin Calcium (ATORVASTATIN CALCIUM) 40 Mg Tablet, 40 MG PO HS for FOR CHOLESTEROL, #30 TAB 0 Refills 10/13/18 Discontinued Reported Medications Insulin Glargine,Hum.rec.anlog (LANTUS SOLOSTAR) 100 Unit/1 Ml Insuln.pen, 10 UNIT SQ QHS for diabetes, #15 ML 3 Refills 10/03/19 Insulin Lispro (HUMALOG) 100 Unit/1 Ml Cartridge, 100 UNIT SQ TIDWMEALS for diabetes, EACH 10/03/19 Glucagon,Human Recombinant (GLUCAGEN) 1 Mg Vial, 1 PRN PRN for LOW BLOOD SUGAR 08/03/19 Insulin Glargine,Hum.rec.anlog (LANTUS SOLOSTAR) 100 Unit/1 Ml Insuln.pen, 11 UNIT SQ QHS for dm, #15 ML 3 Refills 10/13/18 Insulin Lispro (HUMALOG) 100 Unit/1 Ml Cartridge, 22 UNIT SQ TIDWMEALS for dm, EACH 10/13/18 Amlodipine Besylate (AMLODIPINE BESYLATE) 10 Mg Tablet, 10 MG PO DAILY for htn, TAB 10/13/18 Discontinued Scripts [Fluconazole] 100 MG TABLET No Conflict Check, 100 MG PO DAILY for Cellulitis for 7 Days, #7 TAB Prov:JOSE SOLANO MD 09/16/19 Doxycycline Hyclate (DOXYCYCLINE HYCLATE) 100 Mg Tablet, 100 MG PO BID for Cellulitis for 7 Days, #14 TAB Prov:JOSE SOLANO MD 09/16/19 Amoxicillin/Potassium Clav (AMOX TR-K CLV 500-125 MG TAB) 1 Each Tablet, 1 TAB PO DAILY for Cellulitis for 7 Days, #7 TAB Prov:JOSE SOLANO MD 09/16/19 RICKIE GRAMAJO MD Oct 17, 2019 12:08
--- NOTE | 2019-10-17 12:13 | PDOC3 ---
Discharge Summary Visit Information Date of Admission: Oct 08, 2019 Date of Discharge: Oct 17, 2019 Admitting Diagnosis Comment: Acute encephalopathy - metabolic 2/2 DKA and toxic 2/2 likely infectious etiology. off abx by ID s/p dka esrd now hemo (was PD) Dysphagia persistnet now PEG (10/16/19) s/p sepsis - off iv abx broad, off iV micafungin HTN - cont meds DM type 2 insulin requiring - Severe protein calorie malnutrition - Anemia - of chronic renal disease gen weakness, will need intense PT Brief Hospital Course Allergies Allergies Coded Allergies Type Severity Reaction Last Updated Verified lamotrigine Allergy Severe HIVES, SHORTNESS OF BREATH 10/17/19 Yes Vital Signs Vital Signs Date Time Temp Pulse Resp B/P (MAP) Pulse Ox O2 Delivery O2 Flow Rate FiO2 10/17/19 11:00 97.3 102 16 133/47 (75) 88 Room Air 97.3 10/17/19 09:17 2.0 Lab Results Laboratory Tests Test 10/15/19 17:15 10/15/19 23:52 10/16/19 06:37 10/16/19 07:10 Sodium Level 134 mmol/L (136-145) 131 mmol/L (136-145) Potassium Level 4.1 mmol/L (3.5-5.1) 4.2 mmol/L (3.5-5.1) Chloride Level 98 mmol/L (98-107) 96 mmol/L (98-107) Carbon Dioxide Level 29 mmol/L (21-32) 29 mmol/L (21-32) Anion Gap 7 (6-14) 6 (6-14) Blood Urea Nitrogen 47 mg/dL (8-26) 39 mg/dL (8-26) Creatinine 5.0 mg/dL (0.7-1.3) 4.5 mg/dL (0.7-1.3) Estimated GFR (Cockcroft-Gault) 12.2 13.7 BUN/Creatinine Ratio 9 (6-20) Glucose Level 91 mg/dL (70-99) 284 mg/dL (70-99) Calcium Level 7.5 mg/dL (8.5-10.1) 8.1 mg/dL (8.5-10.1) Total Bilirubin 0.2 mg/dL (0.2-1.0) Aspartate Amino Transf (AST/SGOT) 25 U/L (15-37) Alanine Aminotransferase (ALT/SGPT) 13 U/L (16-63) Alkaline Phosphatase 298 U/L (46-116) Total Protein 3.9 g/dL (6.4-8.2) Albumin 0.7 g/dL (3.4-5.0) Albumin/Globulin Ratio 0.2 (1.0-1.7) Hepatitis B Surface Antigen Nonreactive (Nonreactive) Glucose (Fingerstick) 85 mg/dL (70-99) 271 mg/dL (70-99) White Blood Count 10.3 x10^3/uL (4.0-11.0) Red Blood Count 2.85 x10^6/uL (4.30-5.70) Hemoglobin 8.4 g/dL (13.0-17.5) Hematocrit 26.8 % (39.0-53.0) Mean Corpuscular Volume 94 fL (79-100) Mean Corpuscular Hemoglobin 30 pg (25-35) Mean Corpuscular Hemoglobin Concent 32 g/dL (31-37) Red Cell Distribution Width 17.1 % (11.5-14.5) Platelet Count 278 x10^3/uL (140-400) Neutrophils (%) (Auto) 87 % (31-73) Lymphocytes (%) (Auto) 6 % (24-48) Monocytes (%) (Auto) 6 % (0-9) Eosinophils (%) (Auto) 1 % (0-3) Basophils (%) (Auto) 0 % (0-3) Neutrophils # (Auto) 9.0 x10^3/uL (1.8-7.7) Lymphocytes # (Auto) 0.6 x10^3/uL (1.0-4.8) Monocytes # (Auto) 0.6 x10^3/uL (0.0-1.1) Eosinophils # (Auto) 0.0 x10^3/uL (0.0-0.7) Basophils # (Auto) 0.0 x10^3/uL (0.0-0.2) Prothrombin Time 17.4 SEC (11.7-14.0) Prothromb Time International Ratio 1.5 (0.8-1.1) Test 10/16/19 07:41 10/16/19 14:56 10/16/19 15:00 10/16/19 15:27 Glucose (Fingerstick) 245 mg/dL (70-99) 30 mg/dL (70-99) 26 mg/dL (70-99) 59 mg/dL (70-99) Test 10/16/19 15:57 10/16/19 17:05 10/16/19 18:42 10/16/19 22:43 Glucose (Fingerstick) 88 mg/dL (70-99) 80 mg/dL (70-99) 81 mg/dL (70-99) 167 mg/dL (70-99) Test 10/17/19 06:00 10/17/19 06:31 10/17/19 10:22 White Blood Count 8.7 x10^3/uL (4.0-11.0) Red Blood Count 2.57 x10^6/uL (4.30-5.70) Hemoglobin 7.7 g/dL (13.0-17.5) Hematocrit 24.7 % (39.0-53.0) Mean Corpuscular Volume 96 fL (79-100) Mean Corpuscular Hemoglobin 30 pg (25-35) Mean Corpuscular Hemoglobin Concent 31 g/dL (31-37) Red Cell Distribution Width 16.4 % (11.5-14.5) Platelet Count 220 x10^3/uL (140-400) Neutrophils (%) (Auto) 84 % (31-73) Lymphocytes (%) (Auto) 8 % (24-48) Monocytes (%) (Auto) 7 % (0-9) Eosinophils (%) (Auto) 1 % (0-3) Basophils (%) (Auto) 0 % (0-3) Neutrophils # (Auto) 7.3 x10^3/uL (1.8-7.7) Lymphocytes # (Auto) 0.7 x10^3/uL (1.0-4.8) Monocytes # (Auto) 0.6 x10^3/uL (0.0-1.1) Eosinophils # (Auto) 0.0 x10^3/uL (0.0-0.7) Basophils # (Auto) 0.0 x10^3/uL (0.0-0.2) Erythrocyte Sedimentation Rate > 130 (0-15) Sodium Level 133 mmol/L (136-145) Potassium Level 4.4 mmol/L (3.5-5.1) Chloride Level 97 mmol/L (98-107) Carbon Dioxide Level 27 mmol/L (21-32) Anion Gap 9 (6-14) Blood Urea Nitrogen 29 mg/dL (8-26) Creatinine 3.4 mg/dL (0.7-1.3) Estimated GFR (Cockcroft-Gault) 19.0 Glucose Level 356 mg/dL (70-99) Calcium Level 8.2 mg/dL (8.5-10.1) Glucose (Fingerstick) 346 mg/dL (70-99) 280 mg/dL (70-99) Laboratory Tests Test 10/16/19 14:56 10/16/19 15:00 10/16/19 15:27 10/16/19 15:57 Glucose (Fingerstick) 30 mg/dL (70-99) 26 mg/dL (70-99) 59 mg/dL (70-99) 88 mg/dL (70-99) Test 10/16/19 17:05 10/16/19 18:42 10/16/19 22:43 10/17/19 06:00 Glucose (Fingerstick) 80 mg/dL (70-99) 81 mg/dL (70-99) 167 mg/dL (70-99) White Blood Count 8.7 x10^3/uL (4.0-11.0) Red Blood Count 2.57 x10^6/uL (4.30-5.70) Hemoglobin 7.7 g/dL (13.0-17.5) Hematocrit 24.7 % (39.0-53.0) Mean Corpuscular Volume 96 fL (79-100) Mean Corpuscular Hemoglobin 30 pg (25-35) Mean Corpuscular Hemoglobin Concent 31 g/dL (31-37) Red Cell Distribution Width 16.4 % (11.5-14.5) Platelet Count 220 x10^3/uL (140-400) Neutrophils (%) (Auto) 84 % (31-73) Lymphocytes (%) (Auto) 8 % (24-48) Monocytes (%) (Auto) 7 % (0-9) Eosinophils (%) (Auto) 1 % (0-3) Basophils (%) (Auto) 0 % (0-3) Neutrophils # (Auto) 7.3 x10^3/uL (1.8-7.7) Lymphocytes # (Auto) 0.7 x10^3/uL (1.0-4.8) Monocytes # (Auto) 0.6 x10^3/uL (0.0-1.1) Eosinophils # (Auto) 0.0 x10^3/uL (0.0-0.7) Basophils # (Auto) 0.0 x10^3/uL (0.0-0.2) Erythrocyte Sedimentation Rate > 130 (0-15) Sodium Level 133 mmol/L (136-145) Potassium Level 4.4 mmol/L (3.5-5.1) Chloride Level 97 mmol/L (98-107) Carbon Dioxide Level 27 mmol/L (21-32) Anion Gap 9 (6-14) Blood Urea Nitrogen 29 mg/dL (8-26) Creatinine 3.4 mg/dL (0.7-1.3) Estimated GFR (Cockcroft-Gault) 19.0 Glucose Level 356 mg/dL (70-99) Calcium Level 8.2 mg/dL (8.5-10.1) Test 10/17/19 06:31 10/17/19 10:22 Glucose (Fingerstick) 346 mg/dL (70-99) 280 mg/dL (70-99) Brief Hospital Course Mr. Easton is a 53 old [sex] wo came in pretty sick to icu, dka with confusion, septic needing broad spectrum by ID including iV micafungin etc, NOW ON day of dc, off abx (dcd by DR Mathew) PEG placed on 10/16, the day PD cath also got removed, HE is now HD. HE will go to [facility] OFF IV abx, OFF po abx (stayed 9 days in house), on hemodialysis and NPO bec failing swallow, ALL meds and nutrition thru PEG TFS via peg to start TF later this PM dw family, sw, pt seen and exmained dc 32 mins, very long complicated course that I had to chart review etc and concise in this dc summ Discharge Information Condition at Discharge: Improved, Stable Disposition/Orders: Other ([facility]) Scheduled Aspirin (Aspirin Ec) 81 Mg Tablet., 81 MG PO DAILYWBKFT for PAD, #30 Prescribed by: RICKIE GRAMAJO on 08/09/19 1010 Last Action: Continued on 10/08/191699 by JOSE SOLANO MD Atorvastatin Calcium (Atorvastatin Calcium) 40 Mg Tablet, 40 MG PO HS for FOR CHOLESTEROL, #30 Ref 0 (Reported) Entered as Reported by: Guillermo Holliday on 10/13/18 0649 Last Action: Continued on 10/08/191699 by JOSE SOLANO MD Calcitriol (Calcitriol) 0.5 Mcg Capsule, 0.5 MCG PO DAILY for supplement, (Reported) Entered as Reported by: KEY TEIXEIRA on 08/06/191830 Carvedilol (Carvedilol) 25 Mg Tablet, 25 MG PO BIDWMEALS for CARDIAC, (Reported) Entered as Reported by: Guillermo Holliday on 10/13/18 06 Furosemide (Furosemide) 80 Mg Tablet, 80 MG PO BID for diuretic, (Reported) Entered as Reported by: KEY TEIXEIRA on 08/06/19 183 Last Action: Continued on 10/08/191699 by JOSE SOLANO MD Glyburide (Glyburide) 5 Mg Tablet, 5 MG PO DAILY for diabetes, (Reported) Entered as Reported by: FERNANDO HASSAN RN on 10/03/19 1632 Last Action: HELD on 10/08/191699 by JOSE SOLANO MD Insulin Glargine,Hum.rec.anlog (Lantus) 100 Unit/1 Ml Vial, 25 UNIT SQ QHS for dm 2 for 30 Days Prescribed by: RICKIE GRAMAJO on 10/17/19 1206 Insulin Lispro (Humalog) 100 Unit/1 Ml Insuln.pen, 6 UNITS SQ Q6HRS for dm 2 for 30 Days Prescribed by: RICKIE GRAMAJO on 10/17/19 1206 Lactobacillus Rhamnosus Gg (Culturelle) 1 Each Cap.sprink, 1 CAP PO BID for Diarrhea for 7 Days, #14 Prescribed by: JOSE SOLANO MD on 09/16/19 0914 Last Action: Continued on 10/08/191699 by JOSE SOLANO MD Losartan Potassium (Cozaar) 100 Mg Tablet, 100 MG PO HS for HYPERTENSION, (Reported) Entered as Reported by: Guillermo Holliday on 10/13/18648 Last Action: Converted on 10/08/191699 by JOSE SOLANO MD Omeprazole (Omeprazole) 20 Mg Tablet.dr, 20 MG PO DAILY for acid reflux, (Reported) Entered as Reported by: KEY TEIXEIRA on 08/06/191830 Last Action: Converted on 10/08/191699 by JOSE SOLANO MD Tamsulosin Hcl (Tamsulosin Hcl) 0.4 Mg Cap.er.24h, 1 CAP PO HS for urinary retentrion, #30 Ref 5 (Reported) Entered as Reported by: Guillermo Holliday on 10/13/18648 Last Action: Continued on 10/08/191699 by JOSE SOLANO MD Scheduled PRN Montelukast Sodium (Montelukast Sodium Tablet ) 10 Mg Tablet, 1 TAB PO HS PRN for ALLERGIES, #30 Ref 5 (Reported) Entered as Reported by: Guillermo Holliday on 10/13/18648 Last Action: Continued on 10/08/191699 by JOSE SOLANO MD Ondansetron (Ondansetron Odt) 4 Mg Tab.rapdis, 1 TAB PO PRN Q6-8HRS PRN for NAUSEA, #16 (Reported) Entered as Reported by: Guillermo Holliday on 10/13/18648 Last Action: Continued on 10/08/191699 by JOSE SOLANO MD Tramadol Hcl (Tramadol Hcl) 50 Mg Tablet, 50 MG PO PRN Q6HRS PRN for MODERATE PAIN for 3 Days, #12 Prescribed by: JOSE SOLANO MD on 09/16/19 0914 Last Action: Continued on 10/08/191699 by JOSE SOLANO MD Discontinued Medications Amlodipine Besylate (Amlodipine Besylate) 10 Mg Tablet, 10 MG PO DAILY for htn, (Reported) Entered as Reported by: Guillermo Holliday on 10/13/18648 Amoxicillin/Potassium Clav (Amox Tr-K Clv 500-125 Mg Tab) 1 Each Tablet, 1 TAB PO DAILY for Cellulitis for 7 Days, #7 Prescribed by: JOSE SOLANO MD on 09/16/19913 Doxycycline Hyclate (Doxycycline Hyclate) 100 Mg Tablet, 100 MG PO BID for Cellulitis for 7 Days, #14 Prescribed by: JOSE SOLANO MD on 09/16/19913 Glucagon,Human Recombinant (Glucagen) 1 Mg Vial, 1 PRN PRN for LOW BLOOD SUGAR, (Reported) Entered as Reported by: LIZZ DAVENPORT RN on 08/03/19 0155 Insulin Glargine,Hum.rec.anlog (Lantus Solostar) 100 Unit/1 Ml Insuln.pen, 11 UNIT SQ QHS for dm, #15 Ref 3 (Reported) Entered as Reported by: Guillermo Holliday on 10/13/18648 Insulin Glargine,Hum.rec.anlog (Lantus Solostar) 100 Unit/1 Ml Insuln.pen, 10 UNIT SQ QHS for diabetes, #15 Ref 3 (Reported) Entered as Reported by: FERNANDO HASSAN RN on 10/03/19 1631 Last Action: Converted on 10/08/19 1700 by JOSE SOLANO MD Insulin Lispro (Humalog) 100 Unit/1 Ml Cartridge, 22 UNIT SQ TIDWMEALS for dm, (Reported) Entered as Reported by: Guillermo Holliday on 10/13/18648 Insulin Lispro (Humalog) 100 Unit/1 Ml Cartridge, 100 UNIT SQ TIDWMEALS for diabetes, (Reported) Entered as Reported by: FERNANDO HASSAN RN on 10/03/19 1631 [Fluconazole] 100 MG TABLET, 100 MG PO DAILY for Cellulitis for 7 Days, #7 Prescribed by: JOSE SOLANO MD on 09/16/19913 Hemodynamically unstable?: No Is patient in severe pain?: No Is NPO status required?: Yes RICKIE GRAMAJO MD Oct 17, 2019 12:13
[2019-10-17] MEDS ORDERED: IV NORMAL SALINE 1000ML BAG 1,000 ML IV PRN ×2 (12:42)
[2019-10-17] MEDS ORDERED: DIALYSIS PATIENT. MC PRN ×2 (12:45)
--- NOTE | 2019-10-17 12:56 | NUR ---
SS following up with discharge planning. Discharge orders received for [facility], ; fax [phone]. SS phoned and faxed clinical updates and discharge orders to [facility]. [facility] contacted SS and reported that pt is number three on the list currently and will notify SS with admission time once received. SS will await further communication from [facility] and will proceed accordingly with discharge planning. Pt's RN notified.
--- NOTE | 2019-10-17 13:36 | PDOC ---
PROGRESS NOTES Assessment Assessment Metabolic encephalopathy. Dementia features. Dysphagia, no evidence of neuromuscular junction disease. Leukocytosis. Diabetic ketoacidosis. Hyperglycemia. Hypoglycemia. Chronic balanitis. End-stage renal disease on dialysis Anemia of chronic disease. HTN. HLD. AFib. COPD. CAD, s/p CO. RECOMMENDATIONS/PLAN: Treat medical diseases. Control hyper and hypoglycemia. OT/PT. Discussed with his brother at bedside on 10/17/19. Past Medical History Cardiovascular: CAD, HTN, CO, Hyperlipidemia Pulmonary: COPD CENTRAL NERVOUS SYSTEM: Periperal neuropathy Psych: Anxiety, Depression Musculoskeletal: Osteoarthritis Renal/: Chronic renal failure ( peritoneal dialysis), Other (balanitis) Endocrine: Diabetes ( type I) Past Surgical History Coronary angioplasty, dialysis center, peritoneal dialysis catheter, arthroscopic knee, fasciotomy, facial fractures, left foot, sinus. Family History Cancer Social History Used to use alcohol heavily, marijuana, other street drugs, still smokes tobacco, unemployed for over 3 years, Allergies Coded Allergies: Lamotrigine (Verified Allergy, Severe, HIVES, SHORTNESS OF BREATH, 08/27/19) ROS Negative for fever, chills, weight loss, shortness of breath, chest pain, indigestion, hematochezia, melena, and dysuria. Full 14-point review of systems is negative. MEDICATIONS: Refer to MAR PHYSICAL EXAMINATION: General appearance in subacute distress. HEENT: Normocephalic and nontraumatic. Eyes, nose, ears, and throat are unremarkable. Hearing decrease. Neck is supple. No lymphadenopathy. No Crepitus. Cardiovascular: S1, S2, irregular and irregular rhythm. Pulmonary: Mildly decreased to auscultation bilaterally. Abdomen: Bowel sounds are positive. Extremities: No rash, lesions, or edema. No restriction of range of motion NEUROLOGICAL EXAMINATION: Awake. Not oriented to time, but knew place and person. PERRL. EOMI. CN: no focal findings. Muscle tone: within normal. Muscle strength: 4+ DTR: 1-2 UE, 0-1 at knee. Plantar reflex: Neutral response bilaterally Gait: not examined in bed. Sensory exam: no abnormal findings. No cerebellar signs elicited. F-T-N test fine. Objective Objective Vital Signs Date Time Temp Pulse Resp B/P (MAP) Pulse Ox O2 Delivery O2 Flow Rate FiO2 10/17/19 11:00 97.3 102 16 133/47 (75) 88 Room Air 97.3 10/17/19 09:17 2.0 Intake and Output 10/17/19 07:00 Intake Total 300 ml Output Total 5 ml Balance 295 ml Intake Oral 0 ml IV Total 300 ml Estimated Blood Loss 5 ml # Voids 1 # Bowel Movements 5 Vitals Signs Vitals VS - Last 72 Hours, by Label Date Time Temp Pulse Resp B/P (MAP) Pulse Ox O2 Delivery O2 Flow Rate FiO2 10/17/19 11:00 97.3 102 16 133/47 (75) 88 Room Air 97.3 10/17/19 09:47 98.0 98 16 116/58 98 Room Air 98.0 Nasal Cannula 10/17/19 09:32 98.0 98 16 115/56 98 Room Air 98.0 Nasal Cannula 10/17/19 09:17 98 100 16 133/53 100 Nasal Cannula 2.0 98.0 10/17/19 08:37 98.1 18 98.1 10/17/19 08:00 Nasal Cannula 2.0 10/17/19 07:00 97.4 72 20 134/38 (70) 82 Nasal Cannula 2.0 97.4 10/17/19 03:35 97.4 96 16 160/60 (93) 100 Nasal Cannula 2.0 97.4 10/16/19 23:35 97.8 93 16 125/74 (91) 100 Nasal Cannula 2.0 97.8 10/16/19 20:00 Nasal Cannula 2.0 10/16/19 19:35 97.6 51 18 141/61 (87) 91 Nasal Cannula 2.0 97.6 10/16/19 17:55 Nasal Cannula 2 10/16/19 17:53 78 22 106/58 99 Nasal Cannula 2 10/16/19 17:38 78 20 105/66 Simple Mask 10 10/16/19 17:23 97 22 130/29 Simple Mask 10 10/16/19 17:08 98 22 133/55 Simple Mask 10 10/16/19 16:53 Mask 10 10/16/19 16:53 97.6 92 20 92/53 93 Simple Mask 10 97.6 10/16/19 14:34 97.2 106 19 103/51 98 Room Air 2.0 97.2 10/16/19 08:00 Nasal Cannula 2.0 10/16/19 07:00 98.1 98 16 129/61 (83) 98 Room Air 98.1 Laboratory Laboratory Laboratory Tests Test 10/16/19 14:56 10/16/19 15:00 10/16/19 15:27 10/16/19 15:57 Glucose (Fingerstick) 30 mg/dL (70-99) 26 mg/dL (70-99) 59 mg/dL (70-99) 88 mg/dL (70-99) Test 10/16/19 17:05 10/16/19 18:42 10/16/19 22:43 10/17/19 06:00 Glucose (Fingerstick) 80 mg/dL (70-99) 81 mg/dL (70-99) 167 mg/dL (70-99) White Blood Count 8.7 x10^3/uL (4.0-11.0) Red Blood Count 2.57 x10^6/uL (4.30-5.70) Hemoglobin 7.7 g/dL (13.0-17.5) Hematocrit 24.7 % (39.0-53.0) Mean Corpuscular Volume 96 fL (79-100) Mean Corpuscular Hemoglobin 30 pg (25-35) Mean Corpuscular Hemoglobin Concent 31 g/dL (31-37) Red Cell Distribution Width 16.4 % (11.5-14.5) Platelet Count 220 x10^3/uL (140-400) Neutrophils (%) (Auto) 84 % (31-73) Lymphocytes (%) (Auto) 8 % (24-48) Monocytes (%) (Auto) 7 % (0-9) Eosinophils (%) (Auto) 1 % (0-3) Basophils (%) (Auto) 0 % (0-3) Neutrophils # (Auto) 7.3 x10^3/uL (1.8-7.7) Lymphocytes # (Auto) 0.7 x10^3/uL (1.0-4.8) Monocytes # (Auto) 0.6 x10^3/uL (0.0-1.1) Eosinophils # (Auto) 0.0 x10^3/uL (0.0-0.7) Basophils # (Auto) 0.0 x10^3/uL (0.0-0.2) Erythrocyte Sedimentation Rate > 130 (0-15) Sodium Level 133 mmol/L (136-145) Potassium Level 4.4 mmol/L (3.5-5.1) Chloride Level 97 mmol/L (98-107) Carbon Dioxide Level 27 mmol/L (21-32) Anion Gap 9 (6-14) Blood Urea Nitrogen 29 mg/dL (8-26) Creatinine 3.4 mg/dL (0.7-1.3) Estimated GFR (Cockcroft-Gault) 19.0 Glucose Level 356 mg/dL (70-99) Calcium Level 8.2 mg/dL (8.5-10.1) Test 10/17/19 06:31 10/17/19 10:22 10/17/19 12:19 Glucose (Fingerstick) 346 mg/dL (70-99) 280 mg/dL (70-99) 174 mg/dL (70-99) Microbiology 10/12/19 Blood Culture - Final, Complete NO GROWTH AFTER 5 DAYS 10/08/19 Aerobic Culture - Final, Complete 10/08/19 Aerobic Culture Result 1 (HEATHER) - Final, Complete 10/08/19 Gram Stain - Final, Complete 10/08/19 Gram Stain Result 1 (HEATHER) - Final, Complete 10/08/19 Gram Stain Result 2 (HEATHER) - Final, Complete Medication Medications Current Medications Bupivacaine HCl/ Epinephrine Bitart (Sensorcain-Epi 0.5%-1:590664 Mpf) [address] K-MED ONCE .ROUTE Last administered on 10/16/19at 16:15; Start 10/16/19 at 15:44; Stop 10/16/19 at 15:44; Status DC Dexamethasone Sodium Phosphate (Decadron) 4 mg STK-MED ONCE .ROUTE ; Start 10/16/19 at 15:34; Stop 10/16/19 at 15:34; Status DC Dextrose (Dextrose 50%-Water Syringe) 12.5 gm PRN Q15MIN PRN IV SEE COMMENTS; Start 10/17/19 at 09:00; Status Cancel Dextrose (Iv Dextrose 5%) 250 ml PRN Q15MIN PRN IV SEE COMMENTS; Start 10/17/19 at 09:00; Status Cancel Info (PHARMACY MONITORING -- do not chart) 1 each PRN DAILY PRN MC SEE COMMENTS; Start 10/17/19 at 12:45; Status UNV Info (PHARMACY MONITORING -- do not chart) 1 each PRN DAILY PRN MC SEE COMMENTS; Start 10/17/19 at 12:45; Status UNV Insulin Glargine (Lantus Syringe) 25 unit QHS SQ ; Start 10/17/19 at 09:00 Insulin Human Lispro (HumaLOG) 0-9 UNITS TIDWMEALS SQ ; Start 10/17/19 at 12:00 Insulin Human Lispro (HumaLOG) 6 units Q6HRS SQ Last administered on 10/17/19at 12:22; Start 10/17/19 at 09:00 Ketamine HCl (Ketamine) 50 mg STK-MED ONCE .ROUTE ; Start 10/16/19 at 16:03; Stop 10/16/19 at 16:03; Status DC Lidocaine HCl (Lidocaine Pf 2% Vial) 5 ml STK-MED ONCE .ROUTE ; Start 10/16/19 at 15:34; Stop 10/16/19 at 15:34; Status DC Lidocaine HCl (Lidocaine Pf 2% Vial) 5 ml STK-MED ONCE .ROUTE ; Start 10/17/19 at 08:49; Stop 10/17/19 at 08:49; Status DC Midazolam HCl (Versed) 2 mg STK-MED ONCE .ROUTE ; Start 10/16/19 at 16:03; Stop 10/16/19 at 16:03; Status DC Ondansetron HCl (Zofran) 4 mg STK-MED ONCE .ROUTE ; Start 10/16/19 at 15:34; Stop 10/16/19 at 15:35; Status DC Propofol 20 ml @ As Directed STK-MED ONCE IV ; Start 10/16/19 at 15:34; Stop 10/16/19 at 15:34; Status DC Propofol 20 ml @ As Directed STK-MED ONCE IV ; Start 10/17/19 at 08:49; Stop 10/17/19 at 08:49; Status DC Rocuronium Soso (Zemuron) 50 mg STK-MED ONCE .ROUTE ; Start 10/16/19 at 15:34; Stop 10/16/19 at 15:35; Status DC Sodium Chloride 1,000 ml @ 0 mls/hr Q0M IV ; Start 10/17/19 at 08:45 Sodium Chloride 1,000 ml @ 30 mls/hr Q24H IV Last administered on 10/17/19at 08:44; Start 10/16/19 at 14:45 Sodium Chloride 1,000 ml @ 400 mls/hr Q2H30M PRN IV PATENCY; Start 10/17/19 at 12:42; Stop 10/18/19 at 00:41 Sodium Chloride 1,000 ml @ 1,000 mls/hr Q1H PRN IV hypotension; Start 10/17/19 at 12:42; Stop 10/17/19 at 18:41 Comment Review of Relevant I have reviewed the following items alex (where applicable) has been applied. LISETTE PADILLA MD Oct 17, 2019 13:36
--- NOTE | 2019-10-17 15:33 | NUR ---
Wound Care: Patient seen per wound care follow up. See wound assessment for wounds details. Patient is known to us from previous admissions. Patient has abscess to penis wound, wound cleansed, assessed, measured. A scrotal stage 3 with DTI PU was noted, recommendations to apply A & D ointment as ordered to those 2 wounds. Pt's L 5th finger tip is purple/black and scaly, wound cleansed, assessed, measured, and pictured, 1st finger wound appears to have resolved, dry scab left, recommendations to continue painting with Betadine daily. Bilateral feet/toes are now necrotic, purple/black color with crack and scaly, unable to palpate pulse or doppler pedal pulse, recommendation to pain with Betadine daily and consult vascular for further assessment as they are new findings and to continue follow up on L 5th finger wound . Bilateral buttocks and coccyx with a stage 2 with DTI, wound cleansed and covered with skin prep and foam. No other wounds noted at this time. Patient repositioned to left side using purple wedge. Dressing change instructions left in room. Patient's brother at bedside and educated on turning importance, pt transferred to P500 bed. Bed lowered and call light in reach. Bed alarm on. Spoke with RN regarding POC. Wound care will follow up on 10/23.
[2019-10-17] MEDS: ATORVASTATIN CALCIUM 40 MG TABLET. PO SCH (21:25)
[2019-10-17] MEDS: LOSARTAN POTASSIUM 50 MG TABLET. PO SCH (21:25)
[2019-10-17] MEDS: TAMSULOSIN 0.4 MG CAP.ER.24H. PO SCH (21:25)
[2019-10-18 03:54] VITALS: BP 110/49
[2019-10-18 04:08] LABS: HEMOGLOBIN A1C 7.6 % (4.8-5.6)
[2019-10-18] MEDS: INSULIN LISPRO 300 UNITS/3 ML VIAL. SQ SCH ×5 (06:00→16:07)
[2019-10-18 07:00] VITALS: BP 123/58
[2019-10-18] MEDS: DEXTROSE 50% 25 GM / 50ML DISP.SYRIN. IV PRN ×2 (07:51→11:43)
--- NOTE | 2019-10-18 07:54 | NUR ---
Pt with bg 31 this am, pt given 1/2 amp d50. Day nurse has been informed.
[2019-10-18] MEDS: CALCIUM ACETATE 667 MG CAPSULE PO SCH ×3 (08:12→16:22)
[2019-10-18] MEDS: FUROSEMIDE 40 MG/4 ML VIAL. IVP SCH ×2 (08:12→14:00)
[2019-10-18] MEDS: LACTOBACILLUS RHAMNOSUS GG 1 CAPSULE. PO SCH ×2 (08:12→20:28)
[2019-10-18] MEDS: ASPIRIN ENTERIC COATED 81 MG TABLET.DR. PO SCH (08:12)
[2019-10-18] MEDS: PANTOPRAZOLE IV PUSH 40 MG VIAL. IVP SCH (08:12)
--- NOTE | 2019-10-18 09:53 | PDOC ---
Subjective: Subjective: "Can I eat something today?" Doesn't know how feeding tube is, denies abd pain. Objective: Objective: D/w nurse - DC to [facility] held yesterday, now vascular to see re: possible necrotic toe. Says PEG working well. Vital Signs: Vital Signs Date Time Temp Pulse Resp B/P (MAP) Pulse Ox O2 Delivery O2 Flow Rate FiO2 10/18/19 07:00 97.4 65 18 123/58 (79) 95 Nasal Cannula 3.0 97.4 Labs: Laboratory Tests Test 10/17/19 10:22 10/17/19 12:19 10/17/19 18:40 10/17/19 21:00 Glucose (Fingerstick) 280 mg/dL 174 mg/dL 84 mg/dL 107 mg/dL Test 10/18/19 00:21 10/18/19 03:30 10/18/19 07:45 10/18/19 08:07 Glucose (Fingerstick) 122 mg/dL 74 mg/dL 31 mg/dL 74 mg/dL BLOOD CULTURE Final NO GROWTH AFTER 5 DAYS Imaging: PEG/EGD 10/17 antral gastritis s/p PEG placement Extremity Arterial Study 10/18 pending PE: GEN: NAD LUNGS: CTAB HEART: RRR ABD: non-tender, soft, PEG site clean and dry, removed gauze and loosened bumper a bit NEURO/PSYCH: more alert than in the past, probably still a bit confused A/P: Encephalopathy, dysphagia s/p PEG ESRD on HD, toe ischemia -- Chronic illnesses, vascular workup in progress. PEG functioning. Hemodynamically unstable?: No Is patient in severe pain?: No Is NPO status required?: Yes PADILLA HONG Oct 18, 2019 09:53
--- NOTE | 2019-10-18 10:18 | RAD ---
EXAM: Bilateral lower extremity arterial Doppler. HISTORY: Ischemic right first toe and left leg. COMPARISON: None. FINDINGS: Grayscale and Doppler analysis of the lower extremity arterial systems was performed. There is a biphasic waveform within the right common femoral artery. They become monophasic within the deep femoral artery and throughout the remainder of the right lower extremity. No flow is detectable within the right proximal posterior tibial artery proximally, but reconstitutes with monophasic flow distally. There is no is detectable flow within the right peroneal artery. The dorsalis pedis artery is patent. On the left, there are monophasic waveforms throughout. No flow is detectable within the left posterior tibial artery or the dorsalis pedis artery. IMPRESSION: 1. Stenosis is mildly flow-limiting proximal to the right common femoral artery, and becomes significantly flow-limiting in the region of the distal common femoral artery. The right posterior tibial artery is occluded proximally with distal reconstitution. The right peroneal artery is occluded. 2. Findings consistent with significantly flow-limiting stenosis proximal to the left common femoral artery. The left posterior tibial and dorsalis pedis arteries are occluded. Electronically signed by: Reilly Lucio MD (10/18/2019 10:16 AM) [facility]
[2019-10-18 10:44] VITALS: BP 130/61
--- NOTE | 2019-10-18 10:49 | PDOC ---
Infectious Disease Note Subjective Subjective pt is feeling ok, ROS ROS no n/v/d/ Vital Sign Vital Signs Vital Signs Date Time Temp Pulse Resp B/P (MAP) Pulse Ox O2 Delivery O2 Flow Rate FiO2 10/18/19 10:44 97.6 55 18 130/61 (84) 99 Nasal Cannula 3.0 97.6 Physical Exam PHYSICAL EXAM GENERAL: Alert today. in bed - NAD - coop HEENT: Normocephalic, atraumatic, anicteric. No thrush. NECK: No tenderness. Supple, no JVD, LUNGS: Clear. HEART: S1, S2. ABDOMEN: Soft. PD catheter in place, nontender, nondistended. GENITOURINARY: Penile swelling, min redness with eschar like lesion,, No purulence noted - No drainage today - still painful EXTREMITIES: no pedal edema/swelling/joint pain or erythema SKIN: Dry skin. No cyanosis.superficial skin erythema on back pressure changes NEUROLOGIC:Answering questions well. appropriate PSYCHIATRIC flat Labs Lab Laboratory Tests Test 10/17/19 12:19 10/17/19 18:40 10/17/19 21:00 10/18/19 00:21 Glucose (Fingerstick) 174 mg/dL (70-99) 84 mg/dL (70-99) 107 mg/dL (70-99) 122 mg/dL (70-99) Test 10/18/19 03:30 10/18/19 07:45 10/18/19 08:07 Glucose (Fingerstick) 74 mg/dL (70-99) 31 mg/dL (70-99) 74 mg/dL (70-99) Micro Microbiology 10/12/19 Blood Culture - Preliminary, Resulted NO GROWTH AFTER 2 DAYS 10/08/19 Aerobic Culture - Final, Complete 10/08/19 Aerobic Culture Result 1 (HEATHER) - Final, Complete 10/08/19 Gram Stain - Final, Complete 10/08/19 Gram Stain Result 1 (HEATHER) - Final, Complete 10/08/19 Gram Stain Result 2 (HEATHER) - Final, Complete Objective Assessment Fever 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 Leukocytosis - better - cults neg 2. Acute Encephalopathy - some better - Ammonia nml. TSH pending MRI - neg and CT with acute on chronic sinuses 3. DKA 4. Balanitis chronic 5. Anemia of chronic disease. 6. End-stage renal disease, on peritoneal dialysis. 7. Peripheral vascular disease. 8. Metapneumo + Plan Plan of Care Neuropathy per primary Need Urology f/u F/u labs and cults - neg so far Local wound care pd cath will be out today, then peg D/w nursing d/w brother WANDA STACY MD Oct 18, 2019 10:49
--- NOTE | 2019-10-18 11:19 | PDOC ---
SUBJECTIVE ROS stable, no complaints today OBJECTIVE Vital Signs Vital Signs Date Time Temp Pulse Resp B/P (MAP) Pulse Ox O2 Delivery O2 Flow Rate FiO2 10/18/19 10:44 97.6 55 18 130/61 (84) 99 Nasal Cannula 3.0 97.6 I & 0 Intake and Output 10/18/19 07:00 Intake Total 100 ml Balance 100 ml Intake Oral 0 ml IV Total 100 ml PHYSICAL EXAM Physical Exam General: No acute distress, HEENT: OM moist Neck Supple Lungs: Clear to auscultation, Normal air movement Heart: S1S2, RRR, no thrills, no rubs, no gallops, no murmurs Cardiovascular: S1, S2 Abdomen: Normal bowel sounds, Soft, No tenderness, PD removed, Has a PEG Extremities: left av fistula , no bruit or thrill Skin: No rashes, No quinteros DIAGNOSIS/ASSESSMENT Assessment & Plan ESRD- Dr Riggs's pt at [facility] Was on PD, switched to HD , has TDC ,Recd HD x 3 No indication today Lt AV access Non functioning- per vascular 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, type 2 Balanitis chronic- Per ID HTN- Severe protein calorie malnutrition albumin 1.1, Dysphagia/Aspiration- Has a PEG COMMENT/RELEVANT DATA Meds Current Medications Medications (Trade) Dose Ordered Sig/Rosalino Start Time Stop Time Status Last Admin Dose Admin Acetaminophen (Tylenol Supp) 650 mg PRN Q6HRS PRN 10/12/19 06:00 10/17/19 23:24 650 MG Acetaminophen (Tylenol) 500 mg 1X PRN PRN 10/15/19 16:15 10/16/19 16:14 DC Albumin Human 200 ml @ 200 mls/hr 1X PRN PRN 10/16/19 10:45 10/16/19 16:44 DC Amino Acids/ Electrolytes/ Dextrose 1,000 ml @ 80 mls/hr [id number] 10/12/19 16:30 10/17/19 08:52 DC 10/16/19 22:27 80 MLS/HR Amoxicillin/ Clavulanate Potassium (Augmentin 500/ 125mg) 1 tab DAILY 10/09/19 10:30 10/10/19 10:21 DC 10/10/19 10:08 1 TAB Aspirin (Ecotrin) 81 mg [id number] 10/09/19 08:00 10/18/19 08:12 81 MG Atorvastatin Calcium (Lipitor) 40 mg HS 10/08/19 21:00 10/17/19 21:25 40 MG Barium Sulfate (Varibar Thin Liquid Apple) 148 gm 1X ONCE 10/15/19 10:00 10/15/19 10:02 DC 10/15/19 11:10 148 GM Bupivacaine HCl/ Epinephrine Bitart (Sensorcain-Epi 0.5%-1:047908 Mpf) 30 ml STK-MED ONCE 10/16/19 15:44 10/16/19 15:44 DC 10/16/19 16:15 8 ML Calcium Acetate (Phoslo) 1,334 mg TIDWMEALS 10/08/19 20:00 10/18/19 08:12 1,334 MG Darbepoetin Zaid (ARANESP for DIALYSIS PTS) 60 mcg WEEKLYHS 10/15/19 21:00 10/15/19 23:41 60 MCG Dexamethasone Sodium Phosphate (Decadron) 4 mg STK-MED ONCE 10/16/19 15:34 10/16/19 15:34 DC Dextrose (Dextrose 50%-Water Syringe) 12.5 gm PRN Q15MIN PRN 10/17/19 09:00 Cancel Dextrose (Iv Dextrose 5%) 250 ml PRN Q15MIN PRN 10/17/19 09:00 Cancel Diphenhydramine HCl (Benadryl) 25 mg 1X PRN PRN 10/15/19 16:15 10/16/19 16:14 DC Docusate Sodium (Colace) 100 mg PRN BID PRN 10/08/19 16:30 Doxycycline Hyclate (Vibra-Tab) 100 mg BID 10/09/19 11:00 10/10/19 10:21 DC 10/10/19 10:08 100 MG Fentanyl Citrate (Fentanyl 2ml Vial) 50 mcg PRN Q5MIN PRN 10/16/19 07:00 10/17/19 06:59 DC Fluconazole (Diflucan) 100 mg DAILY 10/09/19 10:30 10/12/19 11:57 DC 10/10/19 10:08 100 MG Furosemide (Lasix) 80 mg [id number] 10/15/19 14:00 10/18/19 08:12 80 MG Heparin Sodium (Porcine) (Heparin Sodium) 5,000 unit Q8HRS 10/13/19 06:00 10/15/19 13:03 DC 10/15/19 06:26 5,000 UNIT Hydromorphone HCl (Dilaudid) 0.5 mg PRN Q10MIN PRN 10/16/19 07:00 10/17/19 06:59 DC Info (PHARMACY MONITORING -- do not chart) 1 each PRN DAILY PRN 10/17/19 12:45 UNV Insulin Glargine (Lantus Syringe) 18 unit QHS 10/18/19 21:00 Insulin Human Lispro (HumaLOG) 0-9 UNITS TIDWMEALS 10/17/19 12:00 Ketamine HCl (Ketamine) 50 mg STK-MED ONCE 10/16/19 16:03 10/16/19 16:03 DC Labetalol HCl (Normodyne Iv Push) 10 mg PRN Q2HR PRN 10/15/19 13:45 Lactobacillus Rhamnosus (Culturelle) 1 cap BID 10/08/19 21:00 10/18/19 08:12 1 CAP Lansoprazole (Prevacid) 30 mg DAILY 10/19/19 09:00 Lidocaine HCl (Lidocaine Pf 2% Vial) 5 ml STK-MED ONCE 10/17/19 08:49 10/17/19 08:49 DC Lidocaine HCl (Xylocaine-Mpf 1% 2ml Vial) 2 ml PRN 1X PRN 10/16/19 07:00 10/17/19 06:59 DC Lidocaine/ Epinephrine (LIDOCAINE 1%-EPI 1:100,000 Multi-Dose) 19 ml 1X ONCE 10/15/19 15:00 10/15/19 15:01 DC 10/15/19 14:54 19 ML Linezolid/Dextrose 300 ml @ 300 mls/hr Q12HR 10/12/19 12:00 10/16/19 10:46 DC 10/16/19 08:46 300 MLS/HR Losartan Potassium (Cozaar) 100 mg HS 10/08/19 21:00 10/17/19 21:25 100 MG Meropenem 500 mg/ Sodium Chloride 50 ml @ 100 mls/hr Q12HR 10/13/19 21:00 10/17/19 11:38 DC 10/17/19 09:00 100 MLS/HR Micafungin Sodium 100 mg/Dextrose 100 ml @ 100 mls/hr Q24H 10/12/19 12:00 10/17/19 11:38 DC 10/16/19 18:20 100 MLS/HR Midazolam HCl (Versed) 2 mg STK-MED ONCE 10/16/19 16:03 10/16/19 16:03 DC Montelukast Sodium (Singulair) 10 mg HS PRN 10/08/19 17:00 Morphine Sulfate (Morphine Sulfate) 1 mg PRN Q10MIN PRN 10/16/19 07:00 10/17/19 06:59 DC Ondansetron HCl (Zofran Odt) 4 mg PRN Q6HRS PRN 10/08/19 17:00 10/15/19 13:33 DC Ondansetron HCl (Zofran) 4 mg STK-MED ONCE 10/16/19 15:34 10/16/19 15:35 DC Pantoprazole Sodium (PROTONIX VIAL for IV PUSH) 40 mg DAILYAC 10/12/19 10:00 10/18/19 09:53 DC 10/18/19 08:12 40 MG Pantoprazole Sodium (Protonix) 40 mg DAILYAC 10/09/19 07:30 10/12/19 09:54 DC 10/10/19 10:10 40 MG Piperacillin Sod/ Tazobactam Sod 2.25 gm/Sodium Chloride 50 ml @ 100 mls/hr Q8HRS 10/10/19 11:00 10/12/19 11:56 DC 10/11/19 22:06 100 MLS/HR Prochlorperazine Edisylate (Compazine) 5 mg PACU PRN PRN 10/16/19 07:00 10/17/19 06:59 DC Propofol 20 ml @ As Directed STK-MED ONCE 10/17/19 08:49 10/17/19 08:49 DC Ringer's Solution 1,000 ml @ 30 mls/hr Q24H 10/16/19 07:00 10/16/19 18:59 DC Rocuronium [place] (Zemuron) 50 mg STK-MED ONCE 10/16/19 15:34 10/16/19 15:35 DC Sodium Chloride 1,000 ml @ 400 mls/hr Q2H30M PRN 10/17/19 12:42 10/18/19 00:41 DC Tamsulosin HCl (Flomax) 0.4 mg HS 10/08/19 21:00 10/17/19 21:25 0.4 MG Tramadol HCl (Ultram) 50 mg PRN Q6HRS PRN 10/08/19 17:00 10/12/19 11:56 DC Vancomycin HCl (Vanco Per Pharmacy) 1 each PRN DAILY PRN 10/10/19 10:30 10/12/19 11:56 DC 10/11/19 15:08 1 EACH Vancomycin HCl (Vancomycin Random Level) 1 each 1X ONCE 10/12/19 05:00 10/12/19 05:01 DC 10/12/19 05:00 1 EACH Vancomycin HCl 1.5 gm/Sodium Chloride 500 ml @ 250 mls/hr 1X ONCE 10/10/19 11:00 10/10/19 12:59 DC 10/10/19 16:14 250 MLS/HR Vitamin A/Vitamin D (Vitamin A & D Ointment) 1 lucero PRN Q1HR PRN 10/09/19 09:00 Lab Laboratory Tests Test 10/17/19 12:19 10/17/19 18:40 10/17/19 21:00 10/18/19 00:21 Glucose (Fingerstick) 174 mg/dL (70-99) 84 mg/dL (70-99) 107 mg/dL (70-99) 122 mg/dL (70-99) Test 10/18/19 03:30 10/18/19 07:45 10/18/19 08:07 Glucose (Fingerstick) 74 mg/dL (70-99) 31 mg/dL (70-99) 74 mg/dL (70-99) Results All relevant outside records, renal labs, imaging studies, telemetry/EKG's were reviewed. IVAN APARICIO MD Oct 18, 2019 11:19
[2019-10-18] MEDS ORDERED: IV DEXTROSE 5 %-0.45 % NACL 1,000 ML IV ONE (11:45)
--- NOTE | 2019-10-18 11:45 | PDOC ---
PROGRESS NOTES Chief Complaint Chief Complaint PAD, acute stenosis BILATERAL FEM ARTERIES RT BOG tOE gangrene HYPOGLYCEMIA - 10/17 Acute encephalopathy - metabolic 2/2 DKA and toxic 2/2 likely infectious etiology. Still somewhat confused DKA, type 2 - off insulin GTT. will repeat BMP, able to eat, lantus tonight. Elevated alkaline phosphatase level - will monitor, no biliary problems previously Lactic acidosis - likely due to diabetes mellitus. Will trend Penile cellulitis - present on admission, likely from failure to f/u outpatient - Doxy and augmentin with fluconazole previously. Will culture and consult ID ESRD on HD transitioning to PD prior to his admission - tolerating well. Will consult nephrology Sepsis - from penile cellulitis as etiology, f/u cultures. Previously with coag negative staph on PD culture. F/u repeat culture HTN - cont meds DM type 2 insulin requiring - now hyperglycemic, previously with hypoglycemic event - hypoglycemia protocol. Cont insulin basal bolus plus once out of DKA Severe protein calorie malnutrition - unclear etiology, albumin 1.2, definitely has inconsistent PO intake. Marketing Copywriter to see Anemia - of chronic renal disease Penile cellulitis, could have a component of vasculature involvement. U/S shows no abscess - painless ulcer concerning. Syphilis testing negative previously. Wound care to see Gait instability - needs further PT Anemia - of chronic renal disease Hyperphosphatemia - likely related to phos binder compliance difficulties. Will add phos paige, d/w nephrology History of Present Illness History of Present Illness COUPLE OF ISSUES TODAY: RT GANGRENOUS TOE, ARTERIAL US I ORDERED STAT TODAY: 1. Stenosis is mildly flow-limiting proximal to the right common femoral artery, and becomes significantly flow-limiting in the region of the distal common femoral artery. The right posterior tibial artery is occluded proximally with distal reconstitution. The right peroneal artery is occluded. 2. Findings consistent with significantly flow-limiting stenosis proximal to the left common femoral artery. The left posterior tibial and dorsalis pedis arteries are occluded. CONSULT VASC sx NEEDS Heparin gtt? TFs 30cc (goal 40 per CYLINDER LOADER) -SHAYY Bateman LOW< TWICE TODAY [facility] ON [facility]: dc lantus (we were just using his home med regimen)- dc lispro q6 (he was running high intially) TFs 30cc,. might need DExtrose iVF when goes NPO post MN for revasc or even possible amputation - critical arterial results HOLD ANY dc to ltac - SW updated Dw RN and CYLINDER LOADER and family Appreciate wound care catching the rt gangrenous toe Vitals Vitals Vital Signs Date Time Temp Pulse Resp B/P (MAP) Pulse Ox O2 Delivery O2 Flow Rate FiO2 10/18/19 10:44 97.6 55 18 130/61 (84) 99 Nasal Cannula 3.0 97.6 Physical Exam Physical Exam GENERAL: Alert today. in bed - NAD - coop HEENT: Normocephalic, atraumatic, anicteric. No thrush. NECK: No tenderness. Supple, no JVD, LUNGS: Clear. HEART: S1, S2. ABDOMEN: Soft. PD catheter in place, nontender, nondistended. GENITOURINARY: Penile swelling, min redness with eschar like lesion,, No purulence noted - No drainage today - still painful EXTREMITIES: no pedal edema/swelling/joint pain or erythema SKIN: Dry skin. No cyanosis.superficial skin erythema on back pressure changes NEUROLOGIC:Answering questions well. appropriate PSYCHIATRIC flat General: Alert, Cooperative, No acute distress Heart: Regular rate, Normal S1, Normal S2 Lungs: Clear, Other Abdomen: Soft, Other (PD cath in place) Extremities: No clubbing, No cyanosis Skin: No rashes, No breakdown Labs LABS Laboratory Tests Test 10/17/19 12:19 10/17/19 18:40 10/17/19 21:00 10/18/19 00:21 Glucose (Fingerstick) 174 mg/dL (70-99) 84 mg/dL (70-99) 107 mg/dL (70-99) 122 mg/dL (70-99) Test 10/18/19 03:30 10/18/19 07:45 10/18/19 08:07 10/18/19 11:37 Glucose (Fingerstick) 74 mg/dL (70-99) 31 mg/dL (70-99) 74 mg/dL (70-99) 40 mg/dL (70-99) Review of Systems Review of Systems no pain, no complaints,d ec dorsalis pedis pulses, good strength, rest of 14 pt negative Comment Review of Relevant I have reviewed the following items alex (where applicable) has been applied. Labs Laboratory Tests Test 10/16/19 14:56 10/16/19 15:00 10/16/19 15:27 10/16/19 15:57 Glucose (Fingerstick) 30 mg/dL (70-99) 26 mg/dL (70-99) 59 mg/dL (70-99) 88 mg/dL (70-99) Test 10/16/19 17:05 10/16/19 18:42 10/16/19 22:43 10/17/19 06:00 Glucose (Fingerstick) 80 mg/dL (70-99) 81 mg/dL (70-99) 167 mg/dL (70-99) White Blood Count 8.7 x10^3/uL (4.0-11.0) Red Blood Count 2.57 x10^6/uL (4.30-5.70) Hemoglobin 7.7 g/dL (13.0-17.5) Hematocrit 24.7 % (39.0-53.0) Mean Corpuscular Volume 96 fL (79-100) Mean Corpuscular Hemoglobin 30 pg (25-35) Mean Corpuscular Hemoglobin Concent 31 g/dL (31-37) Red Cell Distribution Width 16.4 % (11.5-14.5) Platelet Count 220 x10^3/uL (140-400) Neutrophils (%) (Auto) 84 % (31-73) Lymphocytes (%) (Auto) 8 % (24-48) Monocytes (%) (Auto) 7 % (0-9) Eosinophils (%) (Auto) 1 % (0-3) Basophils (%) (Auto) 0 % (0-3) Neutrophils # (Auto) 7.3 x10^3/uL (1.8-7.7) Lymphocytes # (Auto) 0.7 x10^3/uL (1.0-4.8) Monocytes # (Auto) 0.6 x10^3/uL (0.0-1.1) Eosinophils # (Auto) 0.0 x10^3/uL (0.0-0.7) Basophils # (Auto) 0.0 x10^3/uL (0.0-0.2) Erythrocyte Sedimentation Rate > 130 (0-15) Sodium Level 133 mmol/L (136-145) Potassium Level 4.4 mmol/L (3.5-5.1) Chloride Level 97 mmol/L (98-107) Carbon Dioxide Level 27 mmol/L (21-32) Anion Gap 9 (6-14) Blood Urea Nitrogen 29 mg/dL (8-26) Creatinine 3.4 mg/dL (0.7-1.3) Estimated GFR (Cockcroft-Gault) 19.0 Glucose Level 356 mg/dL (70-99) Hemoglobin A1c 7.6 % (4.8-5.6) Calcium Level 8.2 mg/dL (8.5-10.1) Test 10/17/19 06:31 10/17/19 10:22 10/17/19 12:19 10/17/19 18:40 Glucose (Fingerstick) 346 mg/dL (70-99) 280 mg/dL (70-99) 174 mg/dL (70-99) 84 mg/dL (70-99) Test 10/17/19 21:00 10/18/19 00:21 10/18/19 03:30 10/18/19 07:45 Glucose (Fingerstick) 107 mg/dL (70-99) 122 mg/dL (70-99) 74 mg/dL (70-99) 31 mg/dL (70-99) Test 10/18/19 08:07 10/18/19 11:37 Glucose (Fingerstick) 74 mg/dL (70-99) 40 mg/dL (70-99) Laboratory Tests Test 10/17/19 12:19 10/17/19 18:40 10/17/19 21:00 10/18/19 00:21 Glucose (Fingerstick) 174 mg/dL (70-99) 84 mg/dL (70-99) 107 mg/dL (70-99) 122 mg/dL (70-99) Test 10/18/19 03:30 10/18/19 07:45 10/18/19 08:07 10/18/19 11:37 Glucose (Fingerstick) 74 mg/dL (70-99) 31 mg/dL (70-99) 74 mg/dL (70-99) 40 mg/dL (70-99) Microbiology 10/12/19 Blood Culture - Final, Complete NO GROWTH AFTER 5 DAYS 10/08/19 Aerobic Culture - Final, Complete 10/08/19 Aerobic Culture Result 1 (HEATHER) - Final, Complete 10/08/19 Gram Stain - Final, Complete 10/08/19 Gram Stain Result 1 (HEATHER) - Final, Complete 10/08/19 Gram Stain Result 2 (HEATHER) - Final, Complete Medications Current Medications Ondansetron HCl (Zofran) 4 mg PRN Q4HRS PRN IV NAUSEA/VOMITING; Start 10/08/19 at 16:30 Acetaminophen (Tylenol) 650 mg PRN Q4HRS PRN PO TEMP OVER 100.4F OR MILD PAIN; Start 10/08/19 at 16:30 Docusate Sodium (Colace) 100 mg PRN BID PRN PO CONSTIPATION; Start 10/08/19 at 16:30 Insulin Human Lispro (HumaLOG) 0-7 UNITS TIDACHC SQ Last administered on 10/16/19at 10:07; Start 10/08/19 at 21:00; Stop 10/17/19 at 08:52; Status DC Dextrose (Dextrose 50%-Water Syringe) 12.5 gm PRN Q15MIN PRN IV SEE COMMENTS Last administered on 10/18/19at 07:51; Start 10/08/19 at 17:00 Dextrose (Iv Dextrose 5%) 250 ml PRN Q15MIN PRN IV SEE COMMENTS; Start 10/08/19 at 17:00 Aspirin (Ecotrin) 81 mg DAILYWBKFT PO Last administered on 10/18/19at 08:12; Start 10/09/19 at 08:00 Atorvastatin Calcium (Lipitor) 40 mg HS PO Last administered on 10/17/19at 21:25; Start 10/08/19 at 21:00 Furosemide (Lasix) 80 mg [id number] PO Last administered on 10/10/19at 16:15; Start 10/08/19 at 18:00; Stop 10/15/19 at 13:33; Status DC Lactobacillus Rhamnosus (Culturelle) 1 cap BID PO Last administered on 10/18/19at 08:12; Start 10/08/19 at 21:00 Montelukast Sodium (Singulair) 10 mg HS PRN PO ALLERGIES; Start 10/08/19 at 17:00 Ondansetron HCl (Zofran Odt) 4 mg PRN Q6HRS PRN PO NAUSEA; Start 10/08/19 at 17:00; Stop 10/15/19 at 13:33; Status DC Tamsulosin HCl (Flomax) 0.4 mg HS PO Last administered on 10/17/19at 21:25; Start 10/08/19 at 21:00 Tramadol HCl (Ultram) 50 mg PRN Q6HRS PRN PO MODERATE PAIN; Start 10/08/19 at 17:00; Stop 10/12/19 at 11:56; Status DC Insulin Glargine (Lantus Syringe) 10 unit QHS SQ Last administered on 10/14/19at 22:14; Start 10/08/19 at 21:00; Stop 10/17/19 at 08:52; Status DC Losartan Potassium (Cozaar) 100 mg HS PO Last administered on 10/17/19at 21:25; Start 10/08/19 at 21:00 Pantoprazole Sodium (Protonix) 40 mg DAILYAC PO Last administered on 10/10/19at 10:10; Start 10/09/19 at 07:30; Stop 10/12/19 at 09:54; Status DC Sodium Chloride 500 ml @ 500 mls/hr 1X ONCE IV Last administered on 10/08/19at 20:00; Start 10/08/19 at 20:00; Stop 10/08/19 at 20:59; Status DC Calcium Acetate (Phoslo) 1,334 mg TIDWMEALS PO Last administered on 10/18/19at 08:12; Start 10/08/19 at 20:00 Vitamin A/Vitamin D (Vitamin A & D Ointment) 1 lucero PRN Q1HR PRN TP SKIN PROTECTION; Start 10/09/19 at 09:00 Doxycycline Hyclate (Vibra-Tab) 100 mg BID PO Last administered on 10/10/19at 10:08; Start 10/09/19 at 11:00; Stop 10/10/19 at 10:21; Status DC Fluconazole (Diflucan) 100 mg DAILY PO Last administered on 10/10/19at 10:08; Start 10/09/19 at 10:30; Stop 10/12/19 at 11:57; Status DC Amoxicillin/ Clavulanate Potassium (Augmentin 500/ 125mg) 1 tab DAILY PO Last administered on 10/10/19at 10:08; Start 10/09/19 at 10:30; Stop 10/10/19 at 10:21 ; Status DC Vancomycin HCl (Vanco Per Pharmacy) 1 each PRN DAILY PRN MC SEE COMMENTS Last administered on 10/11/19at 15:08; Start 10/10/19 at 10:30; Stop 10/12/19 at 11:56; Status DC Piperacillin Sod/ Tazobactam Sod 2.25 gm/Sodium Chloride 50 ml @ 100 mls/hr Q8HRS IV Last administered on 10/11/19at 22:06; Start 10/10/19 at 11:00; Stop 10/12/19 at 11:56; Status DC Vancomycin HCl 1.5 gm/Sodium Chloride 500 ml @ 250 mls/hr 1X ONCE IV Last administered on 10/10/19at 16:14; Start 10/10/19 at 11:00; Stop 10/10/19 at 12:59; Status DC Vancomycin HCl (Vancomycin Random Level) 1 each 1X ONCE MC Last administered on 10/12/19at 05:00; Start 10/12/19 at 05:00; Stop 10/12/19 at 05:01; Status DC Acetaminophen (Tylenol Supp) 650 mg PRN Q6HRS PRN SC MILD PAIN / TEMP Last administered on 10/17/19at 23:24; Start 10/12/19 at 06:00 Pantoprazole Sodium (PROTONIX VIAL for IV PUSH) 40 mg DAILYAC IVP Last administered on 10/18/19at 08:12; Start 10/12/19 at 10:00; Stop 10/18/19 at 09:53; Status DC Meropenem 500 mg/ Sodium Chloride 50 ml @ 100 mls/hr Q8HRS IV Last administered on 10/13/19at 06:00; Start 10/12/19 at 13:00; Stop 10/13/19 at 13:10; Status DC Micafungin Sodium 100 mg/Dextrose 100 ml @ 100 mls/hr Q24H IV Last administered on 10/16/19at 18:20; Start 10/12/19 at 12:00; Stop 10/17/19 at 11:38; Status DC Linezolid/Dextrose 300 ml @ 300 mls/hr Q12HR IV Last administered on 10/16/19at 08:46; Start 10/12/19 at 12:00; Stop 10/16/19 at 10:46; Status DC Amino Acids/ Electrolytes/ Dextrose 1,000 ml @ 80 mls/hr [id number] IV Last administered on 10/16/19at 22:27; Start 10/12/19 at 16:30; Stop 10/17/19 at 08:52; Status DC Heparin Sodium (Porcine) (Heparin Sodium) 5,000 unit Q8HRS SQ Last administered on 10/15/19at 06:26; Start 10/13/19 at 06:00; Stop 10/15/19 at 13:03; Status DC Insulin Human Lispro (HumaLOG) 21 units 1X ONCE SQ Last administered on 10/13/19at 09:26; Start 10/13/19 at 09:30; Stop 10/13/19 at 09:31; Status DC Insulin Human Lispro (HumaLOG) 4 units Q6HRS SQ Last administered on 10/17/19at 06:39; Start 10/13/19 at 12:00; Stop 10/17/19 at 08:52; Status DC Meropenem 500 mg/ Sodium Chloride 50 ml @ 100 mls/hr Q12HR IV Last administere d on 10/17/19at 09:00; Start 10/13/19 at 21:00; Stop 10/17/19 at 11:38; Status DC Barium Sulfate (Varibar Thin Liquid Apple) 148 gm 1X ONCE PO ; Start 10/14/19 at 11:30; Stop 10/14/19 at 11:31; Status DC Barium Sulfate (Varibar Thin Liquid Apple) 148 gm 1X ONCE PO Last administered on 10/15/19at 11:10; Start 10/15/19 at 10:00; Stop 10/15/19 at 10:02; Status DC Darbepoetin Zaid (ARANESP for DIALYSIS PTS) 60 mcg WEEKLYHS SQ Last administered on 10/15/19at 23:41; Start 10/15/19 at 21:00 Lidocaine/ Epinephrine (LIDOCAINE 1%-EPI 1:100,000 Multi-Dose) 20 ml STK-MED ONCE .ROUTE ; Start 10/15/19 at 13:16; Stop 10/15/19 at 13:17; Status DC Furosemide (Lasix) 80 mg BID92 IVP Last administered on 10/18/19at 08:12; Start 10/15/19 at 14:00 Labetalol HCl (Normodyne Iv Push) 10 mg PRN Q2HR PRN IVP HYPERTENSION; Start 10/15/19 at 13:45 Ondansetron HCl (Zofran) 4 mg PRN Q6HRS PRN IV NAUSEA/VOMITING; Start 10/16/19 at 07:00; Stop 10/17/19 at 06:59; Status DC Fentanyl Citrate (Fentanyl 2ml Vial) 25 mcg PRN Q5MIN PRN IV MILD PAIN 1-3; Start 10/16/19 at 07:00; Stop 10/17/19 at 06:59; Status DC Fentanyl Citrate (Fentanyl 2ml Vial) 50 mcg PRN Q5MIN PRN IV MODERATE TO SEVERE PAIN; Start 10/16/19 at 07:00; Stop 10/17/19 at 06:59; Status DC Morphine Sulfate (Morphine Sulfate) 1 mg PRN Q10MIN PRN IV SEVERE PAIN 7-10; Start 10/16/19 at 07:00; Stop 10/17/19 at 06:59; Status DC Ringer's Solution 1,000 ml @ 30 mls/hr Q24H IV ; Start 10/16/19 at 07:00; Stop 10/16/19 at 18:59; Status DC Lidocaine HCl (Xylocaine-Mpf 1% 2ml Vial) 2 ml PRN 1X PRN ID PRIOR TO IV START; Start 10/16/19 at 07:00; Stop 10/17/19 at 06:59; Status DC Hydromorphone HCl (Dilaudid) 0.5 mg PRN Q10MIN PRN IV SEV PAIN, Second choice; Start 10/16/19 at 07:00; Stop 10/17/19 at 06:59; Status DC Prochlorperazine Edisylate (Compazine) 5 mg PACU PRN PRN IV NAUSEA, MRX1; Start 10/16/19 at 07:00; Stop 10/17/19 at 06:59; Status DC Lidocaine/ Epinephrine (LIDOCAINE 1%-EPI 1:100,000 Multi-Dose) 19 ml 1X ONCE INJ Last administered on 10/15/19at 14:54; Start 10/15/19 at 15:00; Stop 10/15/19 at 15:01; Status DC Sodium Chloride 1,000 ml @ 1,000 mls/hr Q1H PRN IV hypotension; Start 10/15/19 at 16:04; Stop 10/15/19 at 22:03; Status DC Acetaminophen (Tylenol) 500 mg 1X PRN PRN PO MILD PAIN / TEMP; Start 10/15/19 at 16:15; Stop 10/16/19 at 16:14; Status DC Diphenhydramine HCl (Benadryl) 25 mg 1X PRN PRN IV ITCHING; Start 10/15/19 at 16:15; Stop 10/16/19 at 16:14; Status DC Diphenhydramine HCl (Benadryl) 25 mg 1X PRN PRN IV ITCHING; Start 10/15/19 at 16:15; Stop 10/16/19 at 16:14; Status DC Sodium Chloride 1,000 ml @ 400 mls/hr Q2H30M PRN IV PATENCY; Start 10/15/19 at 16:04; Stop 10/16/19 at 04:03; Status DC Info (PHARMACY MONITORING -- do not chart) 1 each PRN DAILY PRN MC SEE COMMENTS; Start 10/15/19 at 16:15; Status Cancel Sodium Chloride 1,000 ml @ 1,000 mls/hr Q1H PRN IV hypotension; Start 10/16/19 at 10:40; Stop 10/16/19 at 16:39; Status DC Albumin Human 200 ml @ 200 mls/hr 1X PRN PRN IV Hypotension; Start 10/16/19 at 10:45; Stop 10/16/19 at 16:44; Status DC Sodium Chloride 1,000 ml @ 400 mls/hr Q2H30M PRN IV PATENCY; Start 10/16/19 at 10:40; Stop 10/16/19 at 22:39; Status DC Info (PHARMACY MONITORING -- do not chart) 1 each PRN DAILY PRN MC SEE COMMENTS; Start 10/16/19 at 10:45; Status UNV Info (PHARMACY MONITORING -- do not chart) 1 each PRN DAILY PRN MC SEE COMMENTS; Start 10/16/19 at 10:45 Sodium Chloride 1,000 ml @ 30 mls/hr Q24H IV Last administered on 10/17/19at 08:44; Start 10/16/19 at 14:45 Propofol 20 ml @ As Directed STK-MED ONCE IV ; Start 10/16/19 at 15:34; Stop 10/16/19 at 15:34; Status DC Dexamethasone Sodium Phosphate (Decadron) 4 mg STK-MED ONCE .ROUTE ; Start 10/16/19 at 15:34; Stop 10/16/19 at 15:34; Status DC Lidocaine HCl (Lidocaine Pf 2% Vial) 5 ml STK-MED ONCE .ROUTE ; Start 10/16/19 at 15:34; Stop 10/16/19 at 15:34; Status DC Ondansetron HCl (Zofran) 4 mg STK-MED ONCE .ROUTE ; Start 10/16/19 at 15:34; Stop 10/16/19 at 15:35; Status DC Rocuronium Lee (Zemuron) 50 mg STK-MED ONCE .ROUTE ; Start 10/16/19 at 15:34; Stop 10/16/19 at 15:35; Status DC Bupivacaine HCl/ Epinephrine Bitart (Sensorcain-Epi 0.5%-1:[id number] Mpf) 30 ml STK-MED ONCE .ROUTE Last administered on 10/16/19at 16:15; Start 10/16/19 at 15:44; Stop 10/16/19 at 15:44; Status DC Ketamine HCl (Ketamine) 50 mg STK-MED ONCE .ROUTE ; Start 10/16/19 at 16:03; Stop 10/16/19 at 16:03; Status DC Midazolam HCl (Versed) 2 mg STK-MED ONCE .ROUTE ; Start 10/16/19 at 16:03; Stop 10/16/19 at 16:03; Status DC Sodium Chloride 1,000 ml @ 0 mls/hr Q0M IV ; Start 10/17/19 at 08:45; Status Cancel Propofol 20 ml @ As Directed STK-MED ONCE IV ; Start 10/17/19 at 08:49; Stop 10/17/19 at 08:49; Status DC Lidocaine HCl (Lidocaine Pf 2% Vial) 5 ml STK-MED ONCE .ROUTE ; Start 10/17/19 at 08:49; Stop 10/17/19 at 08:49; Status DC Insulin Glargine (Lantus Syringe) 25 unit QHS SQ Last administered on 10/17/19at 21:27; Start 10/17/19 at 09:00; Stop 10/18/19 at 08:51; Status DC Insulin Human Lispro (HumaLOG) 6 units Q6HRS SQ Last administered on 10/17/19at 12:22; Start 10/17/19 at 09:00; Stop 10/18/19 at 08:51; Status DC Insulin Human Lispro (HumaLOG) 0-9 UNITS TIDWMEALS SQ ; Start 10/17/19 at 12:00 Dextrose (Dextrose 50%-Water Syringe) 12.5 gm PRN Q15MIN PRN IV SEE COMMENTS; Start 10/17/19 at 09:00; Status Cancel Dextrose (Iv Dextrose 5%) 250 ml PRN Q15MIN PRN IV SEE COMMENTS; Start 10/17/19 at 09:00; Status Cancel Sodium Chloride 1,000 ml @ 1,000 mls/hr Q1H PRN IV hypotension; Start 10/17/19 at 12:42; Stop 10/17/19 at 18:41; Status DC Sodium Chloride 1,000 ml @ 400 mls/hr Q2H30M PRN IV PATENCY; Start 10/17/19 at 12:42; Stop 10/18/19 at 00:41; Status DC Info (PHARMACY MONITORING -- do not chart) 1 each PRN DAILY PRN MC SEE COMMENTS; Start 10/17/19 at 12:45; Status UNV Info (PHARMACY MONITORING -- do not chart) 1 each PRN DAILY PRN MC SEE COMMENTS; Start 10/17/19 at 12:45; Status UNV Insulin Glargine (Lantus Syringe) 18 unit QHS SQ ; Start 10/18/19 at 21:00 Lansoprazole (Prevacid) 30 mg DAILY FT ; Start 10/19/19 at 09:00 Active Scripts Active Humalog (Insulin Lispro) 100 Unit/1 Ml Insuln.pen 6 Units SQ Q6HRS 30 Days Lantus (Insulin Glargine,Hum.rec.anlog) 100 Unit/1 Ml Vial 25 Unit SQ QHS 30 Days Tramadol Hcl 50 Mg Tablet 50 Mg PO PRN Q6HRS PRN 3 Days Culturelle (Lactobacillus Rhamnosus Gg) 1 Each Cap.sprink 1 Cap PO BID 7 Days Aspirin Ec (Aspirin) 81 Mg Tablet. 81 Mg PO DAILYWBKFT Reported Glyburide 5 Mg Tablet 5 Mg PO DAILY Omeprazole 20 Mg Tablet. 20 Mg PO DAILY Calcitriol 0.5 Mcg Capsule 0.5 Mcg PO DAILY Furosemide 80 Mg Tablet 80 Mg PO BID Tamsulosin Hcl 0.4 Mg Cap.er.24h 1 Cap PO HS Montelukast Sodium Tablet (Montelukast Sodium) 10 Mg Tablet 1 Tab PO HS PRN Ondansetron Odt (Ondansetron) 4 Mg Tab.rapdis 1 Tab PO PRN Q6-8HRS PRN Cozaar (Losartan Potassium) 100 Mg Tablet 100 Mg PO HS Carvedilol 25 Mg Tablet 25 Mg PO BIDWMEALS Atorvastatin Calcium 40 Mg Tablet 40 Mg PO HS Vitals/I & O Vital Sign - Last 24 Hours 10/17/19 10/17/19 10/17/19 10/17/19 11:56 12:11 12:41 13:13 Pulse 69 94 92 B/P (MAP) 127/71 (89) 126/43 (70) 110/52 (71) 113/51 (71) Pulse Ox 98 O2 Flow Rate 2.0 10/17/19 10/17/19 10/17/19 10/17/19 14:11 15:00 15:20 16:11 Temp 97.2 97.2 Pulse 48 91 89 95 Resp 16 B/P (MAP) 120/46 (70) 113/52 (72) 125/40 (68) 113/52 (72) Pulse Ox 99 92 93 99 O2 Delivery Nasal Cannula O2 Flow Rate 2.0 2.0 2.0 2.0 10/17/19 10/17/19 10/17/19 10/17/19 19:48 20:00 21:25 23:36 Temp 97.7 97.7 97.7 97.7 Pulse 64 60 Resp 18 18 B/P (MAP) 107/62 (77) 107/62 106/40 (62) Pulse Ox 90 97 O2 Delivery Nasal Cannula Nasal Cannula Nasal Cannula O2 Flow Rate 2.0 3.0 3.0 10/18/19 10/18/19 10/18/19 10/18/19 03:54 07:00 08:00 10:44 Temp 97.6 97.4 97.6 97.6 97.4 97.6 Pulse 62 65 55 Resp 18 18 18 B/P (MAP) 110/49 (69) 123/58 (79) 130/61 (84) Pulse Ox 90 95 99 O2 Delivery Nasal Cannula Nasal Cannula Nasal Cannula Nasal Cannula O2 Flow Rate 3.0 3.0 3.0 3.0 Intake and Output 10/17/19 10/17/19 10/18/19 15:00 23:00 07:00 Intake Total 100 ml 0 ml Balance 100 ml 0 ml Nutrition Consultation Dietary Evaluation: Recommendations by RD: Dietary education by RD Comments: REC continue TF as ordered REC mvi and vit c per wound protocal due to multiple skin breakdown areas - See wound assessment Expected Outcomes/Goals: to meet >75% est nutr needs via TF Interpretation of weight loss: >5% in 1 month Malnutrition Findings: Food and Nutrition Intake (Sev: <50% est energy req 5days Body Fat Depletion (Non Severe: Mild Depletion Weight Status: Underweight Hemodynamically unstable?: No Is patient in severe pain?: No Is NPO status required?: Yes RICKIE GRAMAJO MD Oct 18, 2019 11:45
--- NOTE | 2019-10-18 12:33 | PDOC ---
SURGICAL PROGRESS NOTE Subjective minimal pain peg tube in place Vital Signs Vital Signs Date Time Temp Pulse Resp B/P (MAP) Pulse Ox O2 Delivery O2 Flow Rate FiO2 10/18/19 10:44 97.6 55 18 130/61 (84) 99 Nasal Cannula 3.0 97.6 I&O Intake and Output 10/18/19 07:00 Intake Total 100 ml Balance 100 ml Intake Oral 0 ml IV Total 100 ml General: Cooperative, No acute distress Abdomen: Soft, Other (lap sites c/d/i) Labs Laboratory Tests Test 10/16/19 14:56 10/16/19 15:00 10/16/19 15:27 10/16/19 15:57 Glucose (Fingerstick) 30 mg/dL (70-99) 26 mg/dL (70-99) 59 mg/dL (70-99) 88 mg/dL (70-99) Test 10/16/19 17:05 10/16/19 18:42 10/16/19 22:43 10/17/19 06:00 Glucose (Fingerstick) 80 mg/dL (70-99) 81 mg/dL (70-99) 167 mg/dL (70-99) White Blood Count 8.7 x10^3/uL (4.0-11.0) Red Blood Count 2.57 x10^6/uL (4.30-5.70) Hemoglobin 7.7 g/dL (13.0-17.5) Hematocrit 24.7 % (39.0-53.0) Mean Corpuscular Volume 96 fL (79-100) Mean Corpuscular Hemoglobin 30 pg (25-35) Mean Corpuscular Hemoglobin Concent 31 g/dL (31-37) Red Cell Distribution Width 16.4 % (11.5-14.5) Platelet Count 220 x10^3/uL (140-400) Neutrophils (%) (Auto) 84 % (31-73) Lymphocytes (%) (Auto) 8 % (24-48) Monocytes (%) (Auto) 7 % (0-9) Eosinophils (%) (Auto) 1 % (0-3) Basophils (%) (Auto) 0 % (0-3) Neutrophils # (Auto) 7.3 x10^3/uL (1.8-7.7) Lymphocytes # (Auto) 0.7 x10^3/uL (1.0-4.8) Monocytes # (Auto) 0.6 x10^3/uL (0.0-1.1) Eosinophils # (Auto) 0.0 x10^3/uL (0.0-0.7) Basophils # (Auto) 0.0 x10^3/uL (0.0-0.2) Erythrocyte Sedimentation Rate > 130 (0-15) Sodium Level 133 mmol/L (136-145) Potassium Level 4.4 mmol/L (3.5-5.1) Chloride Level 97 mmol/L (98-107) Carbon Dioxide Level 27 mmol/L (21-32) Anion Gap 9 (6-14) Blood Urea Nitrogen 29 mg/dL (8-26) Creatinine 3.4 mg/dL (0.7-1.3) Estimated GFR (Cockcroft-Gault) 19.0 Glucose Level 356 mg/dL (70-99) Hemoglobin A1c 7.6 % (4.8-5.6) Calcium Level 8.2 mg/dL (8.5-10.1) Test 10/17/19 06:31 10/17/19 10:22 10/17/19 12:19 10/17/19 18:40 Glucose (Fingerstick) 346 mg/dL (70-99) 280 mg/dL (70-99) 174 mg/dL (70-99) 84 mg/dL (70-99) Test 10/17/19 21:00 10/18/19 00:21 10/18/19 03:30 10/18/19 07:45 Glucose (Fingerstick) 107 mg/dL (70-99) 122 mg/dL (70-99) 74 mg/dL (70-99) 31 mg/dL (70-99) Test 10/18/19 08:07 10/18/19 11:37 10/18/19 12:24 Glucose (Fingerstick) 74 mg/dL (70-99) 40 mg/dL (70-99) 81 mg/dL (70-99) Laboratory Tests Test 10/17/19 18:40 10/17/19 21:00 10/18/19 00:21 10/18/19 03:30 Glucose (Fingerstick) 84 mg/dL (70-99) 107 mg/dL (70-99) 122 mg/dL (70-99) 74 mg/dL (70-99) Test 10/18/19 07:45 10/18/19 08:07 10/18/19 11:37 10/18/19 12:24 Glucose (Fingerstick) 31 mg/dL (70-99) 74 mg/dL (70-99) 40 mg/dL (70-99) 81 mg/dL (70-99) Assessment/Plan s/p pd cath removal--stable, no further surgical needs, will sign off, call with questions TYRONE MIDDLETON APRN Oct 18, 2019 12:33
[2019-10-18] MEDS: IV NORMAL SALINE 1000ML BAG 1,000 ML IV SCH (14:00)
--- NOTE | 2019-10-18 14:00 | NUR ---
SS following up with discharge planning. SS received notification that discharge being held today due to vascular consult for necrotic ischemic right great toe. SS will continue to follow for discharge planning.
[2019-10-18 14:42] VITALS: BP 107/62
--- NOTE | 2019-10-18 14:58 | PDOC2 ---
CONSULT Date of Consult Date of Consult DATE: 10/18/19 TIME: 14:49 Reason for Consult Reason for Consult: Bilateral lower extremity toe gangrene Referring Physician Referring Physician: Dr. Burton Identification/Chief Complaint Chief Complaint DM, ESRD, PVD with toe gangrene Source Source: Caregiver, Chart review, Patient History of Present Illness Reason for Visit: This is a 53-year-old male well known to our practice with a history of diabetes, end-stage renal disease on hemodialysis. Patient recently was on peritoneal dialysis and converted to hemodialysis due to dysphagia. Patient currently has PEG tube receiving tube feedings. Patient was noted to have bilateral toe gangrene. Recent arterial ultrasound suggest bilateral lower extremity disease. Patient states that prior to hospitalization he was ambulatory. Denies any history of lower extremity claudication. Past Medical History Cardiovascular: CAD, HTN, [place], Hyperlipidemia Pulmonary: COPD CENTRAL NERVOUS SYSTEM: Periperal neuropathy GI: Constipation Heme/Onc: Anemia NOS Psych: Anxiety, Depression Musculoskeletal: Osteoarthritis Renal/: Chronic renal failure ( peritoneal dialysis), Other (balanitis) Endocrine: Diabetes ( type I) Past Surgical History Past Surgical History: Other ( coronary angioplasty, dialysis center, peritoneal dialysis catheter, left upper arm access with ligation, arthroscopic knee, fasciotomy, facial fractures, left foot, sinus) Family History Family History: Cancer Social History 2 packs per day ALCOHOL: other (past heavy alcohol use) Drugs: Other (past drug use) Lives: with Family Current Medications Current Medications Current Medications Ondansetron HCl (Zofran) 4 mg PRN Q4HRS PRN IV NAUSEA/VOMITING; Start 10/08/19 at 16:30 Acetaminophen (Tylenol) 650 mg PRN Q4HRS PRN PO TEMP OVER 100.4F OR MILD PAIN; Start 10/08/19 at 16:30 Docusate Sodium (Colace) 100 mg PRN BID PRN PO CONSTIPATION; Start 10/08/19 at 16:30 Insulin Human Lispro (HumaLOG) 0-7 UNITS TIDACHC SQ Last administered on 10/16/19at 10:07; Start 10/08/19 at 21:00; Stop 10/17/19 at 08:52; Status DC Dextrose (Dextrose 50%-Water Syringe) 12.5 gm PRN Q15MIN PRN IV SEE COMMENTS Last administered on 10/18/19at 11:43; Start 10/08/19 at 17:00 Dextrose (Iv Dextrose 5%) 250 ml PRN Q15MIN PRN IV SEE COMMENTS; Start 10/08/19 at 17:00 Aspirin (Ecotrin) 81 mg DAILYWBKFT PO Last administered on 10/18/19at 08:12; Start 10/09/19 at 08:00 Atorvastatin Calcium (Lipitor) 40 mg HS PO Last administered on 10/17/19at 21:25; Start 10/08/19 at 21:00 Furosemide (Lasix) 80 mg [id number] PO Last administered on 10/10/19at 16:15; Start 10/08/19 at 18:00; Stop 10/15/19 at 13:33; Status DC Lactobacillus Rhamnosus (Culturelle) 1 cap BID PO Last administered on 10/18/19at 08:12; Start 10/08/19 at 21:00 Montelukast Sodium (Singulair) 10 mg HS PRN PO ALLERGIES; Start 10/08/19 at 17:00 Ondansetron HCl (Zofran Odt) 4 mg PRN Q6HRS PRN PO NAUSEA; Start 10/08/19 at 17:00; Stop 10/15/19 at 13:33; Status DC Tamsulosin HCl (Flomax) 0.4 mg HS PO Last administered on 10/17/19at 21:25; Start 10/08/19 at 21:00 Tramadol HCl (Ultram) 50 mg PRN Q6HRS PRN PO MODERATE PAIN; Start 10/08/19 at 17:00; Stop 10/12/19 at 11:56; Status DC Insulin Glargine (Lantus Syringe) 10 unit QHS SQ Last administered on 10/14/19at 22:14; Start 10/08/19 at 21:00; Stop 10/17/19 at 08:52; Status DC Losartan Potassium (Cozaar) 100 mg HS PO Last administered on 10/17/19at 21:25; Start 10/08/19 at 21:00 Pantoprazole Sodium (Protonix) 40 mg DAILYAC PO Last administered on 10/10/19at 10:10; Start 10/09/19 at 07:30; Stop 10/12/19 at 09:54; Status DC Sodium Chloride 500 ml @ 500 mls/hr 1X ONCE IV Last administered on 10/08/19at 20:00; Start 10/08/19 at 20:00; Stop 10/08/19 at 20:59; Status DC Calcium Acetate (Phoslo) 1,334 mg TIDWMEALS PO Last administered on 10/18/19at 11:44; Start 10/08/19 at 20:00 Vitamin A/Vitamin D (Vitamin A & D Ointment) 1 lucero PRN Q1HR PRN TP SKIN PROTECTION; Start 10/09/19 at 09:00 Doxycycline Hyclate (Vibra-Tab) 100 mg BID PO Last administered on 10/10/19at 10:08; Start 10/09/19 at 11:00; Stop 10/10/19 at 10:21; Status DC Fluconazole (Diflucan) 100 mg DAILY PO Last administered on 10/10/19at 10:08; Start 10/09/19 at 10:30; Stop 10/12/19 at 11:57; Status DC Amoxicillin/ Clavulanate Potassium (Augmentin 500/ 125mg) 1 tab DAILY PO Last administered on 10/10/19at 10:08; Start 10/09/19 at 10:30; Stop 10/10/19 at 10:21; Status DC Vancomycin HCl (Vanco Per Pharmacy) 1 each PRN DAILY PRN MC SEE COMMENTS Last administered on 10/11/19at 15:08; Start 10/10/19 at 10:30; Stop 10/12/19 at 11:56; Status DC Piperacillin Sod/ Tazobactam Sod 2.25 gm/Sodium Chloride 50 ml @ 100 mls/hr Q8HRS IV Last administered on 10/11/19at 22:06; Start 10/10/19 at 11:00; Stop 10/12/19 at 11:56; Status DC Vancomycin HCl 1.5 gm/Sodium Chloride 500 ml @ 250 mls/hr 1X ONCE IV Last administered on 10/10/19at 16:14; Start 10/10/19 at 11:00; Stop 10/10/19 at 12:59; Status DC Vancomycin HCl (Vancomycin Random Level) 1 each 1X ONCE MC Last administered on 10/12/19at 05:00; Start 10/12/19 at 05:00; Stop 10/12/19 at 05:01; Status DC Acetaminophen (Tylenol Supp) 650 mg PRN Q6HRS PRN IA MILD PAIN / TEMP Last administered on 10/17/19at 23:24; Start 10/12/19 at 06:00 Pantoprazole Sodium (PROTONIX VIAL for IV PUSH) 40 mg DAILYAC IVP Last administered on 10/18/19at 08:12; Start 10/12/19 at 10:00; Stop 10/18/19 at 09:53; Status DC Meropenem 500 mg/ Sodium Chloride 50 ml @ 100 mls/hr Q8HRS IV Last administered on 10/13/19at 06:00; Start 10/12/19 at 13:00; Stop 10/13/19 at 13:10; Status DC Micafungin Sodium 100 mg/Dextrose 100 ml @ 100 mls/hr Q24H IV Last administered on 10/16/19at 18:20; Start 10/12/19 at 12:00; Stop 10/17/19 at 11:38; Status DC Linezolid/Dextrose 300 ml @ 300 mls/hr Q12HR IV Last administered on 10/16/19at 08:46; Start 10/12/19 at 12:00; Stop 10/16/19 at 10:46; Status DC Amino Acids/ Electrolytes/ Dextrose 1,000 ml @ 80 mls/hr [id number] IV Last administered on 10/16/19at 22:27; Start 10/12/19 at 16:30; Stop 10/17/19 at 08:52; Status DC Heparin Sodium (Porcine) (Heparin Sodium) 5,000 unit Q8HRS SQ Last administered on 10/15/19at 06:26; Start 10/13/19 at 06:00; Stop 10/15/19 at 13:03; Status DC Insulin Human Lispro (HumaLOG) 21 units 1X ONCE SQ Last administered on 10/13/19at 09:26; Start 10/13/19 at 09:30; Stop 10/13/19 at 09:31; Status DC Insulin Human Lispro (HumaLOG) 4 units Q6HRS SQ Last administered on 10/17/19at 06:39; Start 10/13/19 at 12:00; Stop 10/17/19 at 08:52; Status DC Meropenem 500 mg/ Sodium Chloride 50 ml @ 100 mls/hr Q12HR IV Last administered on 10/17/19at 09:00; Start 10/13/19 at 21:00; Stop 10/17/19 at 11:38; Status DC Barium Sulfate (Varibar Thin Liquid Apple) 148 gm 1X ONCE PO ; Start 10/14/19 at 11:30; Stop 10/14/19 at 11:31; Status DC Barium Sulfate (Varibar Thin Liquid Apple) 148 gm 1X ONCE PO Last administered on 10/15/19at 11:10; Start 10/15/19 at 10:00; Stop 10/15/19 at 10:02; Status DC Darbepoetin Zaid (ARANESP for DIALYSIS PTS) 60 mcg WEEKLYHS SQ Last administered on 10/15/19at 23:41; Start 10/15/19 at 21:00 Lidocaine/ Epinephrine (LIDOCAINE 1%-EPI 1:100,000 Multi-Dose) 20 ml STK-MED ONCE .ROUTE ; Start 10/15/19 at 13:16; Stop 10/15/19 at 13:17; Status DC Furosemide (Lasix) 80 mg BID92 IVP Last administered on 10/18/19at 08:12; Start 10/15/19 at 14:00 Labetalol HCl (Normodyne Iv Push) 10 mg PRN Q2HR PRN IVP HYPERTENSION; Start 10/15/19 at 13:45 Ondansetron HCl (Zofran) 4 mg PRN Q6HRS PRN IV NAUSEA/VOMITING; Start 10/16/19 at 07:00; Stop 10/17/19 at 06:59; Status DC Fentanyl Citrate (Fentanyl 2ml Vial) 25 mcg PRN Q5MIN PRN IV MILD PAIN 1-3; Start 10/16/19 at 07:00; Stop 10/17/19 at 06:59; Status DC Fentanyl Citrate (Fentanyl 2ml Vial) 50 mcg PRN Q5MIN PRN IV MODERATE TO SEVERE PAIN; Start 10/16/19 at 07:00; Stop 10/17/19 at 06:59; Status DC Morphine Sulfate (Morphine Sulfate) 1 mg PRN Q10MIN PRN IV SEVERE PAIN 7-10; Start 10/16/19 at 07:00; Stop 10/17/19 at 06:59; Status DC Ringer's Solution 1,000 ml @ 30 mls/hr Q24H IV ; Start 10/16/19 at 07:00; Stop 10/16/19 at 18:59; Status DC Lidocaine HCl (Xylocaine-Mpf 1% 2ml Vial) 2 ml PRN 1X PRN ID PRIOR TO IV START; Start 10/16/19 at 07:00; Stop 10/17/19 at 06:59; Status DC Hydromorphone HCl (Dilaudid) 0.5 mg PRN Q10MIN PRN IV SEV PAIN, Second choice; Start 10/16/19 at 07:00; Stop 10/17/19 at 06:59; Status DC Prochlorperazine Edisylate (Compazine) 5 mg PACU PRN PRN IV NAUSEA, MRX1; Start 10/16/19 at 07:00; Stop 10/17/19 at 06:59; Status DC Lidocaine/ Epinephrine (LIDOCAINE 1%-EPI 1:100,000 Multi-Dose) 19 ml 1X ONCE INJ Last administered on 10/15/19at 14:54; Start 10/15/19 at 15:00; Stop 10/15/19 at 15:01; Status DC Sodium Chloride 1,000 ml @ 1,000 mls/hr Q1H PRN IV hypotension; Start 10/15/19 at 16:04; Stop 10/15/19 at 22:03; Status DC Acetaminophen (Tylenol) 500 mg 1X PRN PRN PO MILD PAIN / TEMP; Start 10/15/19 at 16:15; Stop 10/16/19 at 16:14; Status DC Diphenhydramine HCl (Benadryl) 25 mg 1X PRN PRN IV ITCHING; Start 10/15/19 at 16:15; Stop 10/16/19 at 16:14; Status DC Diphenhydramine HCl (Benadryl) 25 mg 1X PRN PRN IV ITCHING; Start 10/15/19 at 16:15; Stop 10/16/19 at 16:14; Status DC Sodium Chloride 1,000 ml @ 400 mls/hr Q2H30M PRN IV PATENCY; Start 10/15/19 at 16:04; Stop 10/16/19 at 04:03; Status DC Info (PHARMACY MONITORING -- do not chart) 1 each PRN DAILY PRN MC SEE COMME NTS; Start 10/15/19 at 16:15; Status Cancel Sodium Chloride 1,000 ml @ 1,000 mls/hr Q1H PRN IV hypotension; Start 10/16/19 at 10:40; Stop 10/16/19 at 16:39; Status DC Albumin Human 200 ml @ 200 mls/hr 1X PRN PRN IV Hypotension; Start 10/16/19 at 10:45; Stop 10/16/19 at 16:44; Status DC Sodium Chloride 1,000 ml @ 400 mls/hr Q2H30M PRN IV PATENCY; Start 10/16/19 at 10:40; Stop 10/16/19 at 22:39; Status DC Info (PHARMACY MONITORING -- do not chart) 1 each PRN DAILY PRN MC SEE COMMENTS; Start 10/16/19 at 10:45; Status UNV Info (PHARMACY MONITORING -- do not chart) 1 each PRN DAILY PRN MC SEE COMMENTS; Start 10/16/19 at 10:45 Sodium Chloride 1,000 ml @ 30 mls/hr Q24H IV Last administered on 10/17/19at 08:44; Start 10/16/19 at 14:45 Propofol 20 ml @ As Directed STK-MED ONCE IV ; Start 10/16/19 at 15:34; Stop 10/16/19 at 15:34; Status DC Dexamethasone Sodium Phosphate (Decadron) 4 mg STK-MED ONCE .ROUTE ; Start 10/16/19 at 15:34; Stop 10/16/19 at 15:34; Status DC Lidocaine HCl (Lidocaine Pf 2% Vial) 5 ml STK-MED ONCE .ROUTE ; Start 10/16/19 at 15:34; Stop 10/16/19 at 15:34; Status DC Ondansetron HCl (Zofran) 4 mg STK-MED ONCE .ROUTE ; Start 10/16/19 at 15:34; Stop 10/16/19 at 15:35; Status DC Rocuronium [place] (Zemuron) 50 mg STK-MED ONCE .ROUTE ; Start 10/16/19 at 15:34; Stop 10/16/19 at 15:35; Status DC Bupivacaine HCl/ Epinephrine Bitart (Sensorcain-Epi 0.5%-1:[id number] Mpf) 30 ml STK-MED ONCE .ROUTE Last administered on 10/16/19at 16:15; Start 10/16/19 at 15:44; Stop 10/16/19 at 15:44; Status DC Ketamine HCl (Ketamine) 50 mg STK-MED ONCE .ROUTE ; Start 10/16/19 at 16:03; Stop 10/16/19 at 16:03; Status DC Midazolam HCl (Versed) 2 mg STK-MED ONCE .ROUTE ; Start 10/16/19 at 16:03; Stop 10/16/19 at 16:03; Status DC Sodium Chloride 1,000 ml @ 0 mls/hr Q0M IV ; Start 10/17/19 at 08:45; Status Cancel Propofol 20 ml @ As Directed STK-MED ONCE IV ; Start 10/17/19 at 08:49; Stop 10/17/19 at 08:49; Status DC Lidocaine HCl (Lidocaine Pf 2% Vial) 5 ml STK-MED ONCE .ROUTE ; Start 10/17/19 at 08:49; Stop 10/17/19 at 08:49; Status DC Insulin Glargine (Lantus Syringe) 25 unit QHS SQ Last administered on 10/17/19at 21:27; Start 10/17/19 at 09:00; Stop 10/18/19 at 08:51; Status DC Insulin Human Lispro (HumaLOG) 6 units Q6HRS SQ Last administered on 10/17/19at 12:22; Start 10/17/19 at 09:00; Stop 10/18/19 at 08:51; Status DC Insulin Human Lispro (HumaLOG) 0-9 UNITS TIDWMEALS SQ ; Start 10/17/19 at 12:00 Dextrose (Dextrose 50%-Water Syringe) 12.5 gm PRN Q15MIN PRN IV SEE COMMENTS; Start 10/17/19 at 09:00; Status Cancel Dextrose (Iv Dextrose 5%) 250 ml PRN Q15MIN PRN IV SEE COMMENTS; Start 10/17/19 at 09:00; Status Cancel Sodium Chloride 1,000 ml @ 1,000 mls/hr Q1H PRN IV hypotension; Start 10/17/19 at 12:42; Stop 10/17/19 at 18:41; Status DC Sodium Chloride 1,000 ml @ 400 mls/hr Q2H30M PRN IV PATENCY; Start 10/17/19 at 12:42; Stop 10/18/19 at 00:41; Status DC Info (PHARMACY MONITORING -- do not chart) 1 each PRN DAILY PRN MC SEE COMMENTS; Start 10/17/19 at 12:45; Status UNV Info (PHARMACY MONITORING -- do not chart) 1 each PRN DAILY PRN MC SEE COMMENTS; Start 10/17/19 at 12:45; Status UNV Insulin Glargine (Lantus Syringe) 18 unit QHS SQ ; Start 10/18/19 at 21:00; Stop 10/18/19 at 11:42; Status DC Lansoprazole (Prevacid) 30 mg DAILY FT ; Start 10/19/19 at 09:00 Dextrose/Sodium Chloride 1,000 ml @ 75 mls/hr 1X ONCE IV Last administered on 10/18/19at 12:15; Start 10/18/19 at 11:45; Stop 10/19/19 at 01:04 Active Scripts Active Humalog (Insulin Lispro) 100 Unit/1 Ml Insuln.pen 6 Units SQ Q6HRS 30 Days Lantus (Insulin Glargine,Hum.rec.anlog) 100 Unit/1 Ml Vial 25 Unit SQ QHS 30 Days Tramadol Hcl 50 Mg Tablet 50 Mg PO PRN Q6HRS PRN 3 Days Culturelle (Lactobacillus Rhamnosus Gg) 1 Each Cap.sprink 1 Cap PO BID 7 Days Aspirin Ec (Aspirin) 81 Mg Tablet. 81 Mg PO DAILYWBKFT Reported Glyburide 5 Mg Tablet 5 Mg PO DAILY Omeprazole 20 Mg Tablet. 20 Mg PO DAILY Calcitriol 0.5 Mcg Capsule 0.5 Mcg PO DAILY Furosemide 80 Mg Tablet 80 Mg PO BID Tamsulosin Hcl 0.4 Mg Cap.er.24h 1 Cap PO HS Montelukast Sodium Tablet (Montelukast Sodium) 10 Mg Tablet 1 Tab PO HS PRN Ondansetron Odt (Ondansetron) 4 Mg Tab.rapdis 1 Tab PO PRN Q6-8HRS PRN Cozaar (Losartan Potassium) 100 Mg Tablet 100 Mg PO HS Carvedilol 25 Mg Tablet 25 Mg PO BIDWMEALS Atorvastatin Calcium 40 Mg Tablet 40 Mg PO HS Allergies Allergies: Coded Allergies: lamotrigine (Verified Allergy, Severe, HIVES, SHORTNESS OF BREATH, 10/17/19) ROS Review of System GEN: Denies fevers, chills, sweats HEENT: Denies blurred vision, sore throat CV: Denies chest pain or palpitations RESP: Denies shortness of air, cough GI: Denies n/v/d NEURO: Denies confusion, dizziness MSK: As per HPI Physical Exam Physical Exam Gen.: Alert and oriented 3. Cardiac: Heart rate regular. Lungs: CTA, nonlabored respirations. Abdomen: Soft, nontender, nondistended, no palpable masses. Extremities: 2+ palpable bilateral femoral pulses, unable to appreciate distal pulses. Skin: Right first toe with gangrenous skin changes, skin changes at the base of all toes on the plantar surface of both feet. Gangrenous changes between the third and fourth toe on the left foot. No erythema or swelling. Neurological: Motor and sensation intact Vitals VITALS Vital Signs Date Time Temp Pulse Resp B/P (MAP) Pulse Ox O2 Delivery O2 Flow Rate FiO2 10/18/19 14:42 98.0 85 18 107/62 (77) 91 Nasal Cannula 3.0 98.0 Labs Labs Laboratory Tests Test 10/16/19 14:56 10/16/19 15:00 10/16/19 15:27 10/16/19 15:57 Glucose (Fingerstick) 30 mg/dL (70-99) 26 mg/dL (70-99) 59 mg/dL (70-99) 88 mg/dL (70-99) Test 10/16/19 17:05 10/16/19 18:42 10/16/19 22:43 10/17/19 06:00 Glucose (Fingerstick) 80 mg/dL (70-99) 81 mg/dL (70-99) 167 mg/dL (70-99) White Blood Count 8.7 x10^3/uL (4.0-11.0) Red Blood Count 2.57 x10^6/uL (4.30-5.70) Hemoglobin 7.7 g/dL (13.0-17.5) Hematocrit 24.7 % (39.0-53.0) Mean Corpuscular Volume 96 fL (79-100) Mean Corpuscular Hemoglobin 30 pg (25-35) Mean Corpuscular Hemoglobin Concent 31 g/dL (31-37) Red Cell Distribution Width 16.4 % (11.5-14.5) Platelet Count 220 x10^3/uL (140-400) Neutrophils (%) (Auto) 84 % (31-73) Lymphocytes (%) (Auto) 8 % (24-48) Monocytes (%) (Auto) 7 % (0-9) Eosinophils (%) (Auto) 1 % (0-3) Basophils (%) (Auto) 0 % (0-3) Neutrophils # (Auto) 7.3 x10^3/uL (1.8-7.7) Lymphocytes # (Auto) 0.7 x10^3/uL (1.0-4.8) Monocytes # (Auto) 0.6 x10^3/uL (0.0-1.1) Eosinophils # (Auto) 0.0 x10^3/uL (0.0-0.7) Basophils # (Auto) 0.0 x10^3/uL (0.0-0.2) Erythrocyte Sedimentation Rate > 130 (0-15) Sodium Level 133 mmol/L (136-145) Potassium Level 4.4 mmol/L (3.5-5.1) Chloride Level 97 mmol/L (98-107) Carbon Dioxide Level 27 mmol/L (21-32) Anion Gap 9 (6-14) Blood Urea Nitrogen 29 mg/dL (8-26) Creatinine 3.4 mg/dL (0.7-1.3) Estimated GFR (Cockcroft-Gault) 19.0 Glucose Level 356 mg/dL (70-99) Hemoglobin A1c 7.6 % (4.8-5.6) Calcium Level 8.2 mg/dL (8.5-10.1) Test 10/17/19 06:31 10/17/19 10:22 10/17/19 12:19 10/17/19 18:40 Glucose (Fingerstick) 346 mg/dL (70-99) 280 mg/dL (70-99) 174 mg/dL (70-99) 84 mg/dL (70-99) Test 10/17/19 21:00 10/18/19 00:21 10/18/19 03:30 10/18/19 07:45 Glucose (Fingerstick) 107 mg/dL (70-99) 122 mg/dL (70-99) 74 mg/dL (70-99) 31 mg/dL (70-99) Test 10/18/19 08:07 10/18/19 11:37 10/18/19 12:24 Glucose (Fingerstick) 74 mg/dL (70-99) 40 mg/dL (70-99) 81 mg/dL (70-99) Laboratory Tests Test 10/17/19 18:40 10/17/19 21:00 10/18/19 00:21 10/18/19 03:30 Glucose (Fingerstick) 84 mg/dL (70-99) 107 mg/dL (70-99) 122 mg/dL (70-99) 74 mg/dL (70-99) Test 10/18/19 07:45 10/18/19 08:07 10/18/19 11:37 10/18/19 12:24 Glucose (Fingerstick) 31 mg/dL (70-99) 74 mg/dL (70-99) 40 mg/dL (70-99) 81 mg/dL (70-99) Images Images IMPRESSION: 1. Stenosis is mildly flow-limiting proximal to the right common femoral artery, and becomes significantly flow-limiting in the region of the distal common femoral artery. The right posterior tibial artery is occluded proximally with distal reconstitution. The right peroneal artery is occluded. 2. Findings consistent with significantly flow-limiting stenosis proximal to the left common femoral artery. The left posterior tibial and dorsalis pedis arteries are occluded. Assessment/Plan Assessment/Plan 53 year old male with diabetes, end-stage renal disease on hemodialysis with atherosclerosis bilateral lower extremities with gangrenous changes to multiple toes. Arterial ultrasound as well as physical examination suggests diminished arterial flow bilaterally. Would recommend angiography. Will consult IR. Recommend continued protective measures with Rooke boots. Continue risk factor modification to include smoking cessation. Discussed plan of care with patient and patient's family. Dr Velasquez presents for examination and agrees with above. Pt examined and interviewed. Discussed plan with Robin ROSARIO. I agree with impression and plan as above unless otherwise stated. 53 y/o diabetic with ESRD who has digital gangrene both lower extremities. Options discussed with he, brother Robin and Kiel. Will proceed with diagnostic angiogram, revascularization for limb salvage. LUIS Zuniga MD, APRN Oct 18, 2019 14:58 JUSTIN JOSE II, MD Oct 18, 2019 17:24
--- NOTE | 2019-10-18 18:12 | PDOC ---
PROGRESS NOTES Assessment Assessment Metabolic encephalopathy. Dementia features. Dysphagia, no evidence of neuromuscular junction disease. Leukocytosis. Diabetic ketoacidosis. Hyperglycemia. Hypoglycemia. Chronic balanitis. End-stage renal disease on dialysis Anemia of chronic disease. HTN. HLD. AFib, never on treatment. COPD. CAD, s/p FL. Right bit toe wound. RECOMMENDATIONS/PLAN: Treat medical diseases. Control hyper and hypoglycemia. ASA daily. Statin HS. Consult cardiology for Afib. Consulted vascular Surgery for ischemic toe problem. OT/PT. Discussed with his brother at bedside again on 10/18/19. Past Medical History Cardiovascular: CAD, HTN, [place], Hyperlipidemia Pulmonary: COPD CENTRAL NERVOUS SYSTEM: Periperal neuropathy Psych: Anxiety, Depression Musculoskeletal: Osteoarthritis Renal/: Chronic renal failure ( peritoneal dialysis), Other (balanitis) Endocrine: Diabetes ( type I) Past Surgical History Coronary angioplasty, dialysis center, peritoneal dialysis catheter, arthroscopic knee, fasciotomy, facial fractures, left foot, sinus. Family History Cancer Social History Used to use alcohol heavily, marijuana, other street drugs, still smokes tobacco, unemployed for over 3 years, Allergies Coded Allergies: Lamotrigine (Verified Allergy, Severe, HIVES, SHORTNESS OF BREATH, 08/27/19) ROS Negative for fever, chills, weight loss, shortness of breath, chest pain, indigestion, hematochezia, melena, and dysuria. Full 14-point review of systems is negative. MEDICATIONS: Refer to [facility] PHYSICAL EXAMINATION: General appearance in subacute distress. HEENT: Normocephalic and nontraumatic. Eyes, nose, ears, and throat are unremarkable. Hearing decrease. Neck is supple. No lymphadenopathy. No Crepitus. Cardiovascular: S1, S2, irregular and irregular rhythm. Pulmonary: Mildly decreased to auscultation bilaterally. Abdomen: Bowel sounds are positive. Extremities: No rash, lesions, or edema. No restriction of range of motion NEUROLOGICAL EXAMINATION: Awake. Not fully oriented to time, but knew place and person. PERRL. EOMI. CN: no focal findings. Muscle tone: within normal. Muscle strength: 4 DTR: 1-2 UE, 0-1 at knee. Plantar reflex: Neutral response bilaterally Gait: not examined in bed. Sensory exam: no abnormal findings. No cerebellar signs elicited. F-T-N test fine. Objective Objective Vital Signs Date Time Temp Pulse Resp B/P (MAP) Pulse Ox O2 Delivery O2 Flow Rate FiO2 10/18/19 14:42 98.0 85 18 107/62 (77) 91 Nasal Cannula 3.0 98.0 Intake and Output 10/18/19 07:00 Intake Total 100 ml Balance 100 ml Intake Oral 0 ml IV Total 100 ml Vitals Signs Vitals VS - Last 72 Hours, by Label Date Time Temp Pulse Resp B/P (MAP) Pulse Ox O2 Delivery O2 Flow Rate FiO2 10/18/19 14:42 98.0 85 18 107/62 (77) 91 Nasal Cannula 3.0 98.0 10/18/19 10:44 97.6 55 18 130/61 (84) 99 Nasal Cannula 3.0 97.6 10/18/19 08:00 Nasal Cannula 3.0 10/18/19 07:00 97.4 65 18 123/58 (79) 95 Nasal Cannula 3.0 97.4 10/18/19 03:54 97.6 62 18 110/49 (69) 90 Nasal Cannula 3.0 97.6 10/17/19 23:36 97.7 60 18 106/40 (62) 97 Nasal Cannula 3.0 97.7 10/17/19 21:25 107/62 10/17/19 20:00 Nasal Cannula 3.0 10/17/19 19:48 97.7 64 18 107/62 (77) 90 Nasal Cannula 2.0 97.7 10/17/19 16:11 95 113/52 (72) 99 2.0 10/17/19 15:20 89 125/40 (68) 93 2.0 10/17/19 15:00 97.2 91 16 113/52 (72) 92 Nasal Cannula 2.0 97.2 10/17/19 14:11 48 120/46 (70) 99 2.0 10/17/19 13:13 92 113/51 (71) 98 2.0 10/17/19 12:41 94 110/52 (71) 10/17/19 12:11 69 126/43 (70) 10/17/19 11:56 127/71 (89) 10/17/19 11:40 102 129/51 (77) 10/17/19 11:26 96 125/74 (91) 10/17/19 11:00 97.3 102 16 133/47 (75) 88 Room Air 97.3 10/17/19 09:47 98.0 98 16 116/58 98 Room Air 98.0 Nasal Cannula 10/17/19 09:32 98.0 98 16 115/56 98 Room Air 98.0 Nasal Cannula 10/17/19 09:17 98 100 16 133/53 100 Nasal Cannula 2.0 98.0 10/17/19 08:37 98.1 18 98.1 10/17/19 08:00 Nasal Cannula 2.0 10/17/19 07:00 97.4 72 20 134/38 (70) 82 Nasal Cannula 2.0 97.4 Laboratory Laboratory Laboratory Tests Test 10/17/19 18:40 10/17/19 21:00 10/18/19 00:21 10/18/19 03:30 Glucose (Fingerstick) 84 mg/dL (70-99) 107 mg/dL (70-99) 122 mg/dL (70-99) 74 mg/dL (70-99) Test 10/18/19 07:45 10/18/19 08:07 10/18/19 11:37 10/18/19 12:24 Glucose (Fingerstick) 31 mg/dL (70-99) 74 mg/dL (70-99) 40 mg/dL (70-99) 81 mg/dL (70-99) Test 10/18/19 17:52 Glucose (Fingerstick) 108 mg/dL (70-99) Microbiology 10/12/19 Blood Culture - Final, Complete NO GROWTH AFTER 5 DAYS 10/08/19 Aerobic Culture - Final, Complete 10/08/19 Aerobic Culture Result 1 (HEATHER) - Final, Complete 10/08/19 Gram Stain - Final, Complete 10/08/19 Gram Stain Result 1 (HEATHER) - Final, Complete 10/08/19 Gram Stain Result 2 (HEATHER) - Final, Complete Medication Medications Current Medications Dextrose/Sodium Chloride 1,000 ml @ 75 mls/hr 1X ONCE IV Last administered on 10/18/19at 12:15; Start 10/18/19 at 11:45; Stop 10/19/19 at 01:04 Insulin Glargine (Lantus Syringe) 18 unit QHS SQ ; Start 10/18/19 at 21:00; Stop 10/18/19 at 11:42; Status DC Lansoprazole (Prevacid) 30 mg DAILY FT ; Start 10/19/19 at 09:00 Comment Review of Relevant I have reviewed the following items alex (where applicable) has been applied. LISETTE PADILLA MD Oct 18, 2019 18:12
[2019-10-18 19:10] VITALS: BP 109/43
[2019-10-18] MEDS: TAMSULOSIN 0.4 MG CAP.ER.24H. PO SCH (20:28)
[2019-10-18] MEDS: ATORVASTATIN CALCIUM 40 MG TABLET. PO SCH (20:29)
[2019-10-18] MEDS: LOSARTAN POTASSIUM 50 MG TABLET. PO SCH (20:37)
[2019-10-18] MEDS ORDERED: INSULIN GLARGINE SYRINGE. SQ SCH (21:00)
[2019-10-18 23:20] VITALS: BP 132/39
[2019-10-19 03:42] VITALS: BP 135/49
[2019-10-19] MEDS ORDERED: IV DEXTROSE 5 %-0.45 % NACL 1,000 ML IV ONE (04:00)
[2019-10-19 06:06] LABS: ALBUMIN 1.1 g/dL (3.4-5.0); CALCIUM 8.3 mg/dL (8.5-10.1); CREATININE 3.2 mg/dL (0.7-1.3); GFR 20.3; PHOSPHORUS 3.4 mg/dL (2.6-4.7); POTASSIUM 3.9 mmol/L (3.5-5.1)
[2019-10-19 07:00] VITALS: BP 153/86
[2019-10-19] MEDS: CALCIUM ACETATE 667 MG CAPSULE PO SCH ×3 (08:00→16:19)
[2019-10-19] MEDS: INSULIN LISPRO 300 UNITS/3 ML VIAL. SQ SCH ×3 (08:00→17:00)
[2019-10-19] MEDS ORDERED: IODIXANOL 320 MG/ML 100 ML VIAL. ONE ×3 (08:08→10:27)
[2019-10-19] MEDS ORDERED: HEPARIN for ARTERIAL LINE 1,500 ML ONE (08:09)
[2019-10-19] MEDS ORDERED: LIDOCAINE WITH 8.4% SOD BICARB 3 ML DISP.SYRIN. ONE (08:09)
[2019-10-19] MEDS: DEXTROSE 50% 25 GM / 50ML DISP.SYRIN. IV PRN ×2 (08:12→16:15)
[2019-10-19] MEDS ORDERED: IV NORMAL SALINE 1000ML BAG 1,000 ML IV PRN ×2 (08:24)
[2019-10-19] MEDS ORDERED: DIALYSIS PATIENT. MC PRN ×2 (08:30)
[2019-10-19] MEDS ORDERED: fentaNYL PF VIAL 250 MCG/5 ML VIAL ONE (08:39)
[2019-10-19] MEDS ORDERED: MIDAZOLAM HCL/PF 5 MG/5 ML VIAL. ONE (08:39)
--- NOTE | 2019-10-19 08:41 | EKG ---
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
[2019-10-19] MEDS ORDERED: DEXTROSE 50% 25 GM / 50ML DISP.SYRIN. IV ONE (08:42)
--- NOTE | 2019-10-19 08:45 | PDOC ---
CARDIO Progress Notes Date and Time Date of Service 10/19/2019 Time of Evaluation 1400 Subjective Subjective: Other (presently drowsy and acting confues but in no pain, seen in dialysis, post sedation from runoff) Vitals Vitals Vital Signs Date Time Temp Pulse Resp B/P (MAP) Pulse Ox O2 Delivery O2 Flow Rate FiO2 10/19/19 07:00 97.3 72 18 153/86 (108) 96 Nasal Cannula 3.0 97.3 Weight Weight [ ] Input and Output Intake and Output Intake and Output 10/19/19 07:00 Intake Total 100 ml Output Total 800 ml Balance -700 ml Tube Feeding 100 ml Output Urine Total 800 ml Laboratory Labs Laboratory Tests Test 10/18/19 11:37 10/18/19 12:24 10/18/19 17:52 10/18/19 23:33 Glucose (Fingerstick) 40 mg/dL (70-99) 81 mg/dL (70-99) 108 mg/dL (70-99) 151 mg/dL (70-99) Test 10/19/19 03:28 10/19/19 05:30 10/19/19 07:57 Glucose (Fingerstick) 90 mg/dL (70-99) 52 mg/dL (70-99) Sodium Level 135 mmol/L (136-145) Potassium Level 3.9 mmol/L (3.5-5.1) Chloride Level 99 mmol/L (98-107) Carbon Dioxide Level 30 mmol/L (21-32) Anion Gap 6 (6-14) Blood Urea Nitrogen 19 mg/dL (8-26) Creatinine 3.2 mg/dL (0.7-1.3) Estimated GFR (Cockcroft-Gault) 20.3 Glucose Level 63 mg/dL (70-99) Calcium Level 8.3 mg/dL (8.5-10.1) Phosphorus Level 3.4 mg/dL (2.6-4.7) Albumin 1.1 g/dL (3.4-5.0) Microbiology Micro Microbiology 10/12/19 Blood Culture - Final, Complete NO GROWTH AFTER 5 DAYS 10/08/19 Aerobic Culture - Final, Complete 10/08/19 Aerobic Culture Result 1 (HEATHER) - Final, Complete 10/08/19 Gram Stain - Final, Complete 10/08/19 Gram Stain Result 1 (HEATHER) - Final, Complete 10/08/19 Gram Stain Result 2 (HEATHER) - Final, Complete Review of Systems Constitutional: yes: alert, oriented Ears/Nose/Throat: Yes: no symptom reported Eyes: Yes: no symptom reported Pulmonary: Yes no symptom reported Gastrointestional: Yes: nausea, constipation Genitourinary: Yes: no symptom reported Musculoskeletal: Yes: muscle stiffness Skin: Yes no symptom reported Psychiatric/Neurological: Yes: no symptom reported Endocrine: Yes: no symptom reported Physical Exam HEENT: Neck Supple W Full Motion Chest: Symmetric LUNGS: Other (diminished) Heart: other (WAP) Abdomen: Other (soft) Extremities: Other (PAD; toe wounds/gangrene) Neurology: other (drowsy) Assessment Assessment HPI: This is a 53 yo male admitted for altered mental status. Initially he was a [facility] to which he was also noted with uncontrolled DM. IT is unclear who notified the EMS but he was noted to have been in the couh for probably at least 3 days and was sitting on his feces and urine and noted to be confused. There was also concern of ETOH use. He does have significnat comorbid conditions including renal and cardiovascular disease. He does take insulin and smoke tobacco. As an inpt he has had multiple issues with labile BG, severe LE PAD with digital gangrene, penile cellulitis to name a few. Denies any SOA or chest pain and VSS. I saw him on 10/02 for CHF and at that time there was no underlying arrhythmias except for reactive sinus tach. This consult is for AFIB. His paroxysms was first noted in this admission initially during dialysis. Currently remains in AFIB with HR iat 110. No pain. He is currently still post sedation hence drowsy and acting confuse but no distress. 1. Arrhythmia: EKG reviewed appears to be with WAP. 2. Metabolic encephalopathy: currently drowsy with post sedation 2. Acute on chronic diastolic CHF: compensated 3. Anemia of chronic disease 4. CAD; unclear details, noted nonobstructive per chart review. No cardiac symptoms. 5. H/o CVA 6. ESRD on PD 7. Hypertension: controlled 8. Hyperlidipemia 9. DM2: erratic BG range from significantly high and low with home insulin therapy. Noncompliant with diet. 10. COPD with continued tobaccoism 11. Weakness/self care deficit 12. 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 Vasulcar surgery managing Recommendations 1. Fluid off loading per HD 2. Could not sompletely ascertain AFIB but previous EKG noted with WAP. Continue to monitor, eventually MCOT would be essential. Restart BB and will utilize metoprolol. BP trend is currently at low end and will uptitrate per BP trend. 3. Continue secondary prevention measures. If AFIB paroxysms is definitively ascertained then he will need future NOAC given his high risk for stroke. 4. Secondary prevention measures when more alert. 5. Supportive care. PEDRO OLSON APRN Oct 19, 2019 08:45
[2019-10-19] MEDS ORDERED: HEPARIN for IV BOLUS 10,000 UNIT/10 ML VIAL. ONE (09:11)
[2019-10-19] MEDS: IV DEXTROSE 5 %-0.45 % NACL 1,000 ML IV SCH ×2 (09:30→22:50)
[2019-10-19] MEDS ORDERED: IODIXANOL 320 MG/ML 100 ML VIAL. IART ONE (09:30)
[2019-10-19] MEDS ORDERED: MIDAZOLAM HCL/PF 5 MG/5 ML VIAL. IV ONE (09:30)
[2019-10-19] MEDS ORDERED: fentaNYL PF VIAL 250 MCG/5 ML VIAL IV ONE (09:30)
[2019-10-19] MEDS: FUROSEMIDE 40 MG/4 ML VIAL. IVP SCH ×2 (09:30→16:20)
[2019-10-19] MEDS ORDERED: LIDOCAINE WITH 8.4% SOD BICARB 3 ML DISP.SYRIN. IJ ONE (09:30)
--- NOTE | 2019-10-19 09:55 | PDOC ---
Objective: Objective: No issues w/ PEG per nurse, going for aortogram. Vital Signs: Vital Signs Date Time Temp Pulse Resp B/P (MAP) Pulse Ox O2 Delivery O2 Flow Rate FiO2 10/19/19 07:00 97.3 72 18 153/86 (108) 96 Nasal Cannula 3.0 97.3 Labs: Laboratory Tests Test 10/18/19 11:37 10/18/19 12:24 10/18/19 17:52 10/18/19 23:33 Glucose (Fingerstick) 40 mg/dL (70-99) 81 mg/dL (70-99) 108 mg/dL (70-99) 151 mg/dL (70-99) Test 10/19/19 03:28 10/19/19 07:57 10/19/19 08:57 10/19/19 09:44 Glucose (Fingerstick) 90 mg/dL (70-99) 52 mg/dL (70-99) 74 mg/dL (70-99) 87 mg/dL (70-99) Imaging: BLE Doppler IMPRESSION: 1. Stenosis is mildly flow-limiting proximal to the right common femoral artery, and becomes significantly flow-limiting in the region of the distal common femoral artery. The right posterior tibial artery is occluded proximally with distal reconstitution. The right peroneal artery is occluded. 2. Findings consistent with significantly flow-limiting stenosis proximal to the left common femoral artery. The left posterior tibial and dorsalis pedis arteries are occluded. Abd Angiography pending PE: GEN: NAD - IR staff present to transport NEURO/PSYCH: awake and alert A/P: Dysphagia s/p PEG ESRD on HD, toe ischemia -- Stable GI-govea, continue per vascular. Hemodynamically unstable?: No Is patient in severe pain?: No Is NPO status required?: Yes PADILLA HONG Oct 19, 2019 09:55
[2019-10-19] MEDS ORDERED: MIDAZOLAM HCL/PF 2 MG/2 ML VIAL. ONE (09:57)
[2019-10-19] MEDS ORDERED: PROPOFOL 20 ML IV ONE (09:57)
[2019-10-19] MEDS ORDERED: KETAMINE HCL IN NACL, ISO-OSM 50 MG/5 ML SYRINGE ONE (09:57)
[2019-10-19] MEDS ORDERED: PROPOFOL 10 MG/ML (20ML) VIAL. IV ONE (10:00)
--- NOTE | 2019-10-19 10:16 | PDOC ---
SUBJECTIVE ROS stable, seen on HD, tolertaing well OBJECTIVE Vital Signs Vital Signs Date Time Temp Pulse Resp B/P (MAP) Pulse Ox O2 Delivery O2 Flow Rate FiO2 10/19/19 07:00 97.3 72 18 153/86 (108) 96 Nasal Cannula 3.0 97.3 I & 0 Intake and Output 10/19/19 07:00 Intake Total 100 ml Output Total 800 ml Balance -700 ml Tube Feeding 100 ml Output Urine Total 800 ml PHYSICAL EXAM Physical Exam General: No acute distress, HEENT: OM moist Neck Supple Lungs: Clear to auscultation, Normal air movement Heart: S1S2, RRR, no thrills, no rubs, no gallops, no murmurs Cardiovascular: S1, S2 Abdomen: Normal bowel sounds, Soft, No tenderness, PD removed, Has a PEG Extremities: left av fistula , no bruit or thrill Skin: No rashes, No quinteros DIAGNOSIS/ASSESSMENT Assessment & Plan ESRD- Dr Riggs's pt at [facility] Was on PD, switched to HD , has TDC ,Recd HD x 3 Currently on MWF schedule, seen on HD , tolerating well, continue as ordered , Ron Jimenez Lt AV access Non functioning- per vascular Bilateral lower extremities with gangrenous changes to multiple toes. Arterial ultrasound diminished arterial flow bilaterally. Vascular recommends angiography. Scheduled today 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, type 2 Balanitis chronic- Per ID HTN- Severe protein calorie malnutrition albumin 1.1, Dysphagia/Aspiration- Has a PEG Hyper Phos- Phos Normal Hold Phoslo if stays low COMMENT/RELEVANT DATA Meds Current Medications Medications (Trade) Dose Ordered Sig/Rosalino Start Time Stop Time Status Last Admin Dose Admin Acetaminophen (Tylenol Supp) 650 mg PRN Q6HRS PRN 10/12/19 06:00 10/17/19 23:24 650 MG Acetaminophen (Tylenol) 500 mg 1X PRN PRN 10/15/19 16:15 10/16/19 16:14 DC Albumin Human 200 ml @ 200 mls/hr 1X PRN PRN 10/16/19 10:45 10/16/19 16:44 DC Amino Acids/ Electrolytes/ Dextrose 1,000 ml @ 80 mls/hr [id number] 10/12/19 16:30 10/17/19 08:52 DC 10/16/19 22:27 80 MLS/HR Amoxicillin/ Clavulanate Potassium (Augmentin 500/ 125mg) 1 tab DAILY 10/09/19 10:30 10/10/19 10:21 DC 10/10/19 10:08 1 TAB Aspirin (Ecotrin) 325 mg [id number] 10/19/19 08:00 Atorvastatin Calcium (Lipitor) 40 mg HS 10/08/19 21:00 10/18/19 20:29 40 MG Barium Sulfate (Varibar Thin Liquid Apple) 148 gm 1X ONCE 10/15/19 10:00 10/15/19 10:02 DC 10/15/19 11:10 148 GM Bupivacaine HCl/ Epinephrine Bitart (Sensorcain-Epi 0.5%-1:[id number] Mpf) 30 ml STK-MED ONCE 10/16/19 15:44 10/16/19 15:44 DC 10/16/19 16:15 8 ML Calcium Acetate (Phoslo) 1,334 mg [id number] 10/08/19 20:00 10/18/19 16:22 1,334 MG Darbepoetin Zaid (ARANESP for DIALYSIS PTS) 60 mcg WEEKLYHS 10/15/19 21:00 10/15/19 23:41 60 MCG Dexamethasone Sodium Phosphate (Decadron) 4 mg STK-MED ONCE 10/16/19 15:34 10/16/19 15:34 DC Dextrose (Dextrose 50%-Water Syringe) 25 gm STK-MED ONCE 10/19/19 08:42 10/19/19 08:43 DC Dextrose (Iv Dextrose 5%) 250 ml PRN Q15MIN PRN 10/17/19 09:00 Cancel Dextrose/Sodium Chloride 1,000 ml @ 75 mls/hr [id number] 10/19/19 09:30 Diphenhydramine HCl (Benadryl) 25 mg 1X PRN PRN 10/15/19 16:15 10/16/19 16:14 DC Docusate Sodium (Colace) 100 mg PRN BID PRN 10/08/19 16:30 Doxycycline Hyclate (Vibra-Tab) 100 mg BID 10/09/19 11:00 10/10/19 10:21 DC 10/10/19 10:08 100 MG Fentanyl Citrate (Fentanyl 2ml Vial) 50 mcg PRN Q5MIN PRN 10/16/19 07:00 10/17/19 06:59 DC Fentanyl Citrate (Fentanyl 5ml Vial) 250 mcg 1X ONCE 10/19/19 09:30 10/19/19 09:31 DC Fluconazole (Diflucan) 100 mg DAILY 10/09/19 10:30 10/12/19 11:57 DC 10/10/19 10:08 100 MG Furosemide (Lasix) 40 mg [id number] 10/19/19 09:30 Heparin Sodium (Porcine) (Heparin Sodium) 10,000 unit STK-MED ONCE 10/19/19 09:11 10/19/19 09:12 DC Heparin Sodium/ Sodium Chloride (HEPARIN for ARTERIAL LINE FLUSH) 1,000 unit 1X ONCE 10/19/19 09:30 10/19/19 09:31 DC Hydromorphone HCl (Dilaudid) 0.5 mg PRN Q10MIN PRN 10/16/19 07:00 10/17/19 06:59 DC Info (PHARMACY MONITORING -- do not chart) 1 each PRN DAILY PRN 10/19/19 08:30 Insulin Glargine (Lantus Syringe) 18 unit QHS 10/18/19 21:00 10/18/19 11:42 DC Insulin Human Lispro (HumaLOG) 0-9 UNITS TIDWMEALS 10/17/19 12:00 Iodixanol (Visipaque 320) 100 ml 1X ONCE 10/19/19 09:30 10/19/19 09:31 DC Ketamine HCl (Ketamine) 50 mg STK-MED ONCE 10/19/19 09:57 10/19/19 09:57 DC Labetalol HCl (Normodyne Iv Push) 10 mg PRN Q2HR PRN 10/15/19 13:45 Lactobacillus Rhamnosus (Culturelle) 1 cap BID 10/08/19 21:00 10/18/19 20:28 1 CAP Lansoprazole (Prevacid) 30 mg DAILY 10/19/19 09:00 Lidocaine HCl (Buffered Lidocaine 1%) 3 ml 1X ONCE 10/19/19 09:30 10/19/19 09:31 DC Lidocaine HCl (Lidocaine Pf 2% Vial) 5 ml STK-MED ONCE 10/17/19 08:49 10/17/19 08:49 DC Lidocaine HCl (Xylocaine-Mpf 1% 2ml Vial) 2 ml PRN 1X PRN 10/16/19 07:00 10/17/19 06:59 DC Lidocaine/ Epinephrine (LIDOCAINE 1%-EPI 1:100,000 Multi-Dose) 19 ml 1X ONCE 10/15/19 15:00 10/15/19 15:01 DC 10/15/19 14:54 19 ML Linezolid/Dextrose 300 ml @ 300 mls/hr Q12HR 10/12/19 12:00 10/16/19 10:46 DC 10/16/19 08:46 300 MLS/HR Losartan Potassium (Cozaar) 100 mg HS 10/08/19 21:00 10/17/19 21:25 100 MG Meropenem 500 mg/ Sodium Chloride 50 ml @ 100 mls/hr Q12HR 10/13/19 21:00 10/17/19 11:38 DC 10/17/19 09:00 100 MLS/HR Micafungin Sodium 100 mg/Dextrose 100 ml @ 100 mls/hr Q24H 10/12/19 12:00 10/17/19 11:38 DC 10/16/19 18:20 100 MLS/HR Midazolam HCl (Versed) 2 mg STK-MED ONCE 10/19/19 09:57 10/19/19 09:57 DC Montelukast Sodium (Singulair) 10 mg HS PRN 10/08/19 17:00 Morphine Sulfate (Morphine Sulfate) 1 mg PRN Q10MIN PRN 10/16/19 07:00 10/17/19 06:59 DC Ondansetron HCl (Zofran Odt) 4 mg PRN Q6HRS PRN 10/08/19 17:00 10/15/19 13:33 DC Ondansetron HCl (Zofran) 4 mg STK-MED ONCE 10/16/19 15:34 10/16/19 15:35 DC Pantoprazole Sodium (PROTONIX VIAL for IV PUSH) 40 mg DAILYAC 10/12/19 10:00 10/18/19 09:53 DC 10/18/19 08:12 40 MG Pantoprazole Sodium (Protonix) 40 mg DAILYAC 10/09/19 07:30 10/12/19 09:54 DC 10/10/19 10:10 40 MG Piperacillin Sod/ Tazobactam Sod 2.25 gm/Sodium Chloride 50 ml @ 100 mls/hr Q8HRS 10/10/19 11:00 10/12/19 11:56 DC 10/11/19 22:06 100 MLS/HR Prochlorperazine Edisylate (Compazine) 5 mg PACU PRN PRN 10/16/19 07:00 10/17/19 06:59 DC Propofol 20 ml @ As Directed STK-MED ONCE 10/19/19 09:57 10/19/19 09:57 DC Ringer's Solution 1,000 ml @ 30 mls/hr Q24H 10/16/19 07:00 10/16/19 18:59 DC Rocuronium [place] (Zemuron) 50 mg STK-MED ONCE 10/16/19 15:34 10/16/19 15:35 DC Sodium Chloride 1,000 ml @ 400 mls/hr Q2H30M PRN 10/19/19 08:24 10/19/19 20:23 Tamsulosin HCl (Flomax) 0.4 mg HS 10/08/19 21:00 10/18/19 20:28 0.4 MG Tramadol HCl (Ultram) 50 mg PRN Q6HRS PRN 10/08/19 17:00 10/12/19 11:56 DC Vancomycin HCl (Vanco Per Pharmacy) 1 each PRN DAILY PRN 10/10/19 10:30 10/12/19 11:56 DC 10/11/19 15:08 1 EACH Vancomycin HCl (Vancomycin Random Level) 1 each 1X ONCE 10/12/19 05:00 10/12/19 05:01 DC 10/12/19 05:00 1 EACH Vancomycin HCl 1.5 gm/Sodium Chloride 500 ml @ 250 mls/hr 1X ONCE 10/10/19 11:00 10/10/19 12:59 DC 10/10/19 16:14 250 MLS/HR Vitamin A/Vitamin D (Vitamin A & D Ointment) 1 lucero PRN Q1HR PRN 10/09/19 09:00 Lab Laboratory Tests Test 10/18/19 11:37 10/18/19 12:24 10/18/19 17:52 10/18/19 23:33 Glucose (Fingerstick) 40 mg/dL (70-99) 81 mg/dL (70-99) 108 mg/dL (70-99) 151 mg/dL (70-99) Test 10/19/19 03:28 10/19/19 05:30 10/19/19 07:57 10/19/19 08:57 Glucose (Fingerstick) 90 mg/dL (70-99) 52 mg/dL (70-99) 74 mg/dL (70-99) Sodium Level 135 mmol/L (136-145) Potassium Level 3.9 mmol/L (3.5-5.1) Chloride Level 99 mmol/L (98-107) Carbon Dioxide Level 30 mmol/L (21-32) Anion Gap 6 (6-14) Blood Urea Nitrogen 19 mg/dL (8-26) Creatinine 3.2 mg/dL (0.7-1.3) Estimated GFR (Cockcroft-Gault) 20.3 Glucose Level 63 mg/dL (70-99) Calcium Level 8.3 mg/dL (8.5-10.1) Phosphorus Level 3.4 mg/dL (2.6-4.7) Albumin 1.1 g/dL (3.4-5.0) Test 10/19/19 09:44 Glucose (Fingerstick) 87 mg/dL (70-99) Results All relevant outside records, renal labs, imaging studies, telemetry/EKG's were reviewed. IVAN APARICIO MD Oct 19, 2019 10:16
[2019-10-19] MEDS ORDERED: HEPARIN for IV BOLUS 10,000 UNIT/10 ML VIAL. IV ONE (11:00)
[2019-10-19 11:08] VITALS: BP 103/50
--- NOTE | 2019-10-19 11:28 | PDOC ---
PROGRESS NOTES Chief Complaint Chief Complaint PAD, acute stenosis BILATERAL FEM ARTERIES RT necrotic big toe/gangrene RT BOG tOE gangrene HYPOGLYCEMIA - 10/17 Acute encephalopathy - metabolic 2/2 DKA and toxic 2/2 likely infectious etiology. Still somewhat confused DKA, type 2 - off insulin GTT. will repeat BMP, able to eat, lantus tonight. Elevated alkaline phosphatase level - will monitor, no biliary problems previously Lactic acidosis - likely due to diabetes mellitus. Will trend Penile cellulitis - present on admission, likely from failure to f/u outpatient - Doxy and augmentin with fluconazole previously. Will culture and consult ID ESRD on HD transitioning to PD prior to his admission - tolerating well. Will consult nephrology Sepsis - from penile cellulitis as etiology, f/u cultures. Previously with coag negative staph on PD culture. F/u repeat culture HTN - cont meds DM type 2 insulin requiring - now hyperglycemic, previously with hypoglycemic event - hypoglycemia protocol. Cont insulin basal bolus plus once out of DKA Severe protein calorie malnutrition - unclear etiology, albumin 1.2, definitely has inconsistent PO intake. Art Librarian to see Anemia - of chronic renal disease Penile cellulitis, could have a component of vasculature involvement. U/S shows no abscess - painless ulcer concerning. Syphilis testing negative previously. Wound care to see Gait instability - needs further PT Anemia - of chronic renal disease Hyperphosphatemia - likely related to phos binder compliance difficulties. Will add pancho gibson, d/w nephrology History of Present Illness History of Present Illness HE is out having arteriogram and revascularization plans for limb salvage by [facility] sx Off abx - dw ID SLated for lTAC Wound care also on board, discovered the gangrenous big toe HYpoglycemia persisted yesterday despite TF via PEG at 30cc (goal 40cc/hr) - new PEG NEeded 2 Litres of dextrose iVF PLAn: POst op labs POst op care Amputtaion vs stenting Dectrose iVF prn/gtt for hYPOGLYCEMIA - off insulin now (was on SQ pushes) LTAC on dc NUtrition consulted, skin and bones FUll code Brother is his support family Vitals Vitals Vital Signs Date Time Temp Pulse Resp B/P (MAP) Pulse Ox O2 Delivery O2 Flow Rate FiO2 10/19/19 11:14 Nasal Cannula 6.0 10/19/19 11:08 92 10 100 10/19/19 07:00 97.3 153/86 (108) 97.3 Physical Exam Physical Exam GENERAL: Alert today. in bed - NAD - coop HEENT: Normocephalic, atraumatic, anicteric. No thrush. NECK: No tenderness. Supple, no JVD, LUNGS: Clear. HEART: S1, S2. ABDOMEN: Soft. PD catheter in place, nontender, nondistended. GENITOURINARY: Penile swelling, min redness with eschar like lesion,, No purulence noted - No drainage today - still painful EXTREMITIES: no pedal edema/swelling/joint pain or erythema SKIN: Dry skin. No cyanosis.superficial skin erythema on back pressure changes NEUROLOGIC:Answering questions well. appropriate PSYCHIATRIC flat General: Cooperative, No acute distress Heart: Regular rate, Normal S1, Normal S2 Lungs: Clear, Other Abdomen: Soft, Other (lap sites c/d/i) Extremities: No clubbing, No cyanosis Skin: No rashes, No breakdown Labs LABS Laboratory Tests Test 10/18/19 11:37 10/18/19 12:24 10/18/19 17:52 10/18/19 23:33 Glucose (Fingerstick) 40 mg/dL (70-99) 81 mg/dL (70-99) 108 mg/dL (70-99) 151 mg/dL (70-99) Test 10/19/19 03:28 10/19/19 05:30 10/19/19 07:57 10/19/19 08:57 Glucose (Fingerstick) 90 mg/dL (70-99) 52 mg/dL (70-99) 74 mg/dL (70-99) Sodium Level 135 mmol/L (136-145) Potassium Level 3.9 mmol/L (3.5-5.1) Chloride Level 99 mmol/L (98-107) Carbon Dioxide Level 30 mmol/L (21-32) Anion Gap 6 (6-14) Blood Urea Nitrogen 19 mg/dL (8-26) Creatinine 3.2 mg/dL (0.7-1.3) Estimated GFR (Cockcroft-Gault) 20.3 Glucose Level 63 mg/dL (70-99) Calcium Level 8.3 mg/dL (8.5-10.1) Phosphorus Level 3.4 mg/dL (2.6-4.7) Albumin 1.1 g/dL (3.4-5.0) Test 10/19/19 09:44 10/19/19 11:04 Glucose (Fingerstick) 87 mg/dL (70-99) 100 mg/dL (70-99) Review of Systems Review of Systems out having arteriogram Comment Review of Relevant I have reviewed the following items alex (where applicable) has been applied. Labs Laboratory Tests Test 10/17/19 12:19 10/17/19 18:40 10/17/19 21:00 10/18/19 00:21 Glucose (Fingerstick) 174 mg/dL (70-99) 84 mg/dL (70-99) 107 mg/dL (70-99) 122 mg/dL (70-99) Test 10/18/19 03:30 10/18/19 07:45 10/18/19 08:07 10/18/19 11:37 Glucose (Fingerstick) 74 mg/dL (70-99) 31 mg/dL (70-99) 74 mg/dL (70-99) 40 mg/dL (70-99) Test 10/18/19 12:24 10/18/19 17:52 10/18/19 23:33 10/19/19 03:28 Glucose (Fingerstick) 81 mg/dL (70-99) 108 mg/dL (70-99) 151 mg/dL (70-99) 90 mg/dL (70-99) Test 10/19/19 05:30 10/19/19 07:57 10/19/19 08:57 10/19/19 09:44 Sodium Level 135 mmol/L (136-145) Potassium Level 3.9 mmol/L (3.5-5.1) Chloride Level 99 mmol/L (98-107) Carbon Dioxide Level 30 mmol/L (21-32) Anion Gap 6 (6-14) Blood Urea Nitrogen 19 mg/dL (8-26) Creatinine 3.2 mg/dL (0.7-1.3) Estimated GFR (Cockcroft-Gault) 20.3 Glucose Level 63 mg/dL (70-99) Calcium Level 8.3 mg/dL (8.5-10.1) Phosphorus Level 3.4 mg/dL (2.6-4.7) Albumin 1.1 g/dL (3.4-5.0) Glucose (Fingerstick) 52 mg/dL (70-99) 74 mg/dL (70-99) 87 mg/dL (70-99) Test 10/19/19 11:04 Glucose (Fingerstick) 100 mg/dL (70-99) Laboratory Tests Test 10/18/19 11:37 10/18/19 12:24 10/18/19 17:52 10/18/19 23:33 Glucose (Fingerstick) 40 mg/dL (70-99) 81 mg/dL (70-99) 108 mg/dL (70-99) 151 mg/dL (70-99) Test 10/19/19 03:28 10/19/19 05:30 10/19/19 07:57 10/19/19 08:57 Glucose (Fingerstick) 90 mg/dL (70-99) 52 mg/dL (70-99) 74 mg/dL (70-99) Sodium Level 135 mmol/L (136-145) Potassium Level 3.9 mmol/L (3.5-5.1) Chloride Level 99 mmol/L (98-107) Carbon Dioxide Level 30 mmol/L (21-32) Anion Gap 6 (6-14) Blood Urea Nitrogen 19 mg/dL (8-26) Creatinine 3.2 mg/dL (0.7-1.3) Estimated GFR (Cockcroft-Gault) 20.3 Glucose Level 63 mg/dL (70-99) Calcium Level 8.3 mg/dL (8.5-10.1) Phosphorus Level 3.4 mg/dL (2.6-4.7) Albumin 1.1 g/dL (3.4-5.0) Test 10/19/19 09:44 10/19/19 11:04 Glucose (Fingerstick) 87 mg/dL (70-99) 100 mg/dL (70-99) Microbiology 10/12/19 Blood Culture - Final, Complete NO GROWTH AFTER 5 DAYS 10/08/19 Aerobic Culture - Final, Complete 10/08/19 Aerobic Culture Result 1 (HEATHER) - Final, Complete 10/08/19 Gram Stain - Final, Complete 10/08/19 Gram Stain Result 1 (HEATHER) - Final, Complete 10/08/19 Gram Stain Result 2 (HEATHER) - Final, Complete Medications Current Medications Ondansetron HCl (Zofran) 4 mg PRN Q4HRS PRN IV NAUSEA/VOMITING; Start 10/08/19 at 16:30 Acetaminophen (Tylenol) 650 mg PRN Q4HRS PRN PO TEMP OVER 100.4F OR MILD PAIN; Start 10/08/19 at 16:30 Docusate Sodium (Colace) 100 mg PRN BID PRN PO CONSTIPATION; Start 10/08/19 at 16:30 Insulin Human Lispro (HumaLOG) 0-7 UNITS TIDACHC SQ Last administered on 10/16/19at 10:07; Start 10/08/19 at 21:00; Stop 10/17/19 at 08:52; Status DC Dextrose (Dextrose 50%-Water Syringe) 12.5 gm PRN Q15MIN PRN IV SEE COMMENTS Last administered on 10/19/19at 08:12; Start 10/08/19 at 17:00 Dextrose (Iv Dextrose 5%) 250 ml PRN Q15MIN PRN IV SEE COMMENTS; Start 10/08/19 at 17:00 Aspirin (Ecotrin) 81 mg DAILYWBKFT PO Last administered on 10/18/19at 08:12; Start 10/09/19 at 08:00; Stop 10/18/19 at 18:13; Status DC Atorvastatin Calcium (Lipitor) 40 mg HS PO Last administered on 10/18/19at 20:29; Start 10/08/19 at 21:00 Furosemide (Lasix) 80 mg [id number] PO Last administered on 10/10/19at 16:15; Start 10/08/19 at 18:00; Stop 10/15/19 at 13:33; Status DC Lactobacillus Rhamnosus (Culturelle) 1 cap BID PO Last administered on 10/18/19at 20:28; Start 10/08/19 at 21:00 Montelukast Sodium (Singulair) 10 mg HS PRN PO ALLERGIES; Start 10/08/19 at 17:00 Ondansetron HCl (Zofran Odt) 4 mg PRN Q6HRS PRN PO NAUSEA; Start 10/08/19 at 17:00; Stop 10/15/19 at 13:33; Status DC Tamsulosin HCl (Flomax) 0.4 mg HS PO Last administered on 10/18/19at 20:28; Start 10/08/19 at 21:00 Tramadol HCl (Ultram) 50 mg PRN Q6HRS PRN PO MODERATE PAIN; Start 10/08/19 at 17:00; Stop 10/12/19 at 11:56; Status DC Insulin Glargine (Lantus Syringe) 10 unit QHS SQ Last administered on 10/14/19at 22:14; Start 10/08/19 at 21:00; Stop 10/17/19 at 08:52; Status DC Losartan Potassium (Cozaar) 100 mg HS PO Last administered on 10/17/19at 21:25; Start 10/08/19 at 21:00 Pantoprazole Sodium (Protonix) 40 mg DAILYAC PO Last administered on 10/10/19at 10:10; Start 10/09/19 at 07:30; Stop 10/12/19 at 09:54; Status DC Sodium Chloride 500 ml @ 500 mls/hr 1X ONCE IV Last administered on 10/08/19at 20:00; Start 10/08/19 at 20:00; Stop 10/08/19 at 20:59; Status DC Calcium Acetate (Phoslo) 1,334 mg TIDWMEALS PO Last administered on 10/18/19at 16:22; Start 10/08/19 at 20:00 Vitamin A/Vitamin D (Vitamin A & D Ointment) 1 lucero PRN Q1HR PRN TP SKIN PROTECTION; Start 10/09/19 at 09:00 Doxycycline Hyclate (Vibra-Tab) 100 mg BID PO Last administered on 10/10/19at 10:08; Start 10/09/19 at 11:00; Stop 10/10/19 at 10:21; Status DC Fluconazole (Diflucan) 100 mg DAILY PO Last administered on 10/10/19at 10:08; Start 10/09/19 at 10:30; Stop 10/12/19 at 11:57; Status DC Amoxicillin/ Clavulanate Potassium (Augmentin 500/ 125mg) 1 tab DAILY PO Last administered on 10/10/19at 10:08; Start 10/09/19 at 10:30; Stop 10/10/19 at 10:21; Status DC Vancomycin HCl (Vanco Per Pharmacy) 1 each PRN DAILY PRN MC SEE COMMENTS Last administered on 10/11/19at 15:08; Start 10/10/19 at 10:30; Stop 10/12/19 at 11:56; Status DC Piperacillin Sod/ Tazobactam Sod 2.25 gm/Sodium Chloride 50 ml @ 100 mls/hr Q8HRS IV Last administered on 10/11/19at 22:06; Start 10/10/19 at 11:00; Stop 10/12/19 at 11:56; Status DC Vancomycin HCl 1.5 gm/Sodium Chloride 500 ml @ 250 mls/hr 1X ONCE IV Last administered on 10/10/19at 16:14; Start 10/10/19 at 11:00; Stop 10/10/19 at 12:59; Status DC Vancomycin HCl (Vancomycin Random Level) 1 each 1X ONCE MC Last administered on 10/12/19at 05:00; Start 10/12/19 at 05:00; Stop 10/12/19 at 05:01; Status DC Acetaminophen (Tylenol Supp) 650 mg PRN Q6HRS PRN SC MILD PAIN / TEMP Last administered on 10/17/19at 23:24; Start 10/12/19 at 06:00 Pantoprazole Sodium (PROTONIX VIAL for IV PUSH) 40 mg DAILYAC IVP Last administered on 10/18/19at 08:12; Start 10/12/19 at 10:00; Stop 10/18/19 at 09:53; Status DC Meropenem 500 mg/ Sodium Chloride 50 ml @ 100 mls/hr Q8HRS IV Last administered on 10/13/19at 06:00; Start 10/12/19 at 13:00; Stop 10/13/19 at 13:10; Status DC Micafungin Sodium 100 mg/Dextrose 100 ml @ 100 mls/hr Q24H IV Last administered on 10/16/19at 18:20; Start 10/12/19 at 12:00; Stop 10/17/19 at 11:38; Status DC Linezolid/Dextrose 300 ml @ 300 mls/hr Q12HR IV Last administered on 10/16/19at 08:46; Start 10/12/19 at 12:00; Stop 10/16/19 at 10:46; Status DC Amino Acids/ Electrolytes/ Dextrose 1,000 ml @ 80 mls/hr [id number] IV Last administered on 10/16/19at 22:27; Start 10/12/19 at 16:30; Stop 10/17/19 at 08:52; Status DC Heparin Sodium (Porcine) (Heparin Sodium) 5,000 unit Q8HRS SQ Last administered on 10/15/19at 06:26; Start 10/13/19 at 06:00; Stop 10/15/19 at 13:03; Status DC Insulin Human Lispro (HumaLOG) 21 units 1X ONCE SQ Last administered on 10/13/19at 09:26; Start 10/13/19 at 09:30; Stop 10/13/19 at 09:31; Status DC Insulin Human Lispro (HumaLOG) 4 units Q6HRS SQ Last administered on 10/17/19at 06:39; Start 10/13/19 at 12:00; Stop 10/17/19 at 08:52; Status DC Meropenem 500 mg/ Sodium Chloride 50 ml @ 100 mls/hr Q12HR IV Last administered on 10/17/19at 09:00; Start 10/13/19 at 21:00; Stop 10/17/19 at 11:3 8; Status DC Barium Sulfate (Varibar Thin Liquid Apple) 148 gm 1X ONCE PO ; Start 10/14/19 at 11:30; Stop 10/14/19 at 11:31; Status DC Barium Sulfate (Varibar Thin Liquid Apple) 148 gm 1X ONCE PO Last administered on 10/15/19at 11:10; Start 10/15/19 at 10:00; Stop 10/15/19 at 10:02; Status DC Darbepoetin Zaid (ARANESP for DIALYSIS PTS) 60 mcg WEEKLYHS SQ Last administered on 10/15/19at 23:41; Start 10/15/19 at 21:00 Lidocaine/ Epinephrine (LIDOCAINE 1%-EPI 1:100,000 Multi-Dose) 20 ml STK-MED ONCE .ROUTE ; Start 10/15/19 at 13:16; Stop 10/15/19 at 13:17; Status DC Furosemide (Lasix) 80 mg BID92 IVP Last administered on 10/18/19at 08:12; Start 10/15/19 at 14:00; Stop 10/19/19 at 09:17; Status DC Labetalol HCl (Normodyne Iv Push) 10 mg PRN Q2HR PRN IVP HYPERTENSION; Start 10/15/19 at 13:45 Ondansetron HCl (Zofran) 4 mg PRN Q6HRS PRN IV NAUSEA/VOMITING; Start 10/16/19 at 07:00; Stop 10/17/19 at 06:59; Status DC Fentanyl Citrate (Fentanyl 2ml Vial) 25 mcg PRN Q5MIN PRN IV MILD PAIN 1-3; Start 10/16/19 at 07:00; Stop 10/17/19 at 06:59; Status DC Fentanyl Citrate (Fentanyl 2ml Vial) 50 mcg PRN Q5MIN PRN IV MODERATE TO SEVERE PAIN; Start 10/16/19 at 07:00; Stop 10/17/19 at 06:59; Status DC Morphine Sulfate (Morphine Sulfate) 1 mg PRN Q10MIN PRN IV SEVERE PAIN 7-10; Start 10/16/19 at 07:00; Stop 10/17/19 at 06:59; Status DC Ringer's Solution 1,000 ml @ 30 mls/hr Q24H IV ; Start 10/16/19 at 07:00; Stop 10/16/19 at 18:59; Status DC Lidocaine HCl (Xylocaine-Mpf 1% 2ml Vial) 2 ml PRN 1X PRN ID PRIOR TO IV START; Start 10/16/19 at 07:00; Stop 10/17/19 at 06:59; Status DC Hydromorphone HCl (Dilaudid) 0.5 mg PRN Q10MIN PRN IV SEV PAIN, Second choice; Start 10/16/19 at 07:00; Stop 10/17/19 at 06:59; Status DC Prochlorperazine Edisylate (Compazine) 5 mg PACU PRN PRN IV NAUSEA, MRX1; Start 10/16/19 at 07:00; Stop 10/17/19 at 06:59; Status DC Lidocaine/ Epinephrine (LIDOCAINE 1%-EPI 1:100,000 Multi-Dose) 19 ml 1X ONCE INJ Last administered on 10/15/19at 14:54; Start 10/15/19 at 15:00; Stop 10/15/19 at 15:01; Status DC Sodium Chloride 1,000 ml @ 1,000 mls/hr Q1H PRN IV hypotension; Start 10/15/19 at 16:04; Stop 10/15/19 at 22:03; Status DC Acetaminophen (Tylenol) 500 mg 1X PRN PRN PO MILD PAIN / TEMP; Start 10/15/19 at 16:15; Stop 10/16/19 at 16:14; Status DC Diphenhydramine HCl (Benadryl) 25 mg 1X PRN PRN IV ITCHING; Start 10/15/19 at 16:15; Stop 10/16/19 at 16:14; Status DC Diphenhydramine HCl (Benadryl) 25 mg 1X PRN PRN IV ITCHING; Start 10/15/19 at 16:15; Stop 10/16/19 at 16:14; Status DC Sodium Chloride 1,000 ml @ 400 mls/hr Q2H30M PRN IV PATENCY; Start 10/15/19 at 16:04; Stop 10/16/19 at 04:03; Status DC Info (PHARMACY MONITORING -- do not chart) 1 each PRN DAILY PRN MC SEE COMMENTS; Start 10/15/19 at 16:15; Status Cancel Sodium Chloride 1,000 ml @ 1,000 mls/hr Q1H PRN IV hypotension; Start 10/16/19 at 10:40; Stop 10/16/19 at 16:39; Status DC Albumin Human 200 ml @ 200 mls/hr 1X PRN PRN IV Hypotension; Start 10/16/19 at 10:45; Stop 10/16/19 at 16:44; Status DC Sodium Chloride 1,000 ml @ 400 mls/hr Q2H30M PRN IV PATENCY; Start 10/16/19 at 10:40; Stop 10/16/19 at 22:39; Status DC Info (PHARMACY MONITORING -- do not chart) 1 each PRN DAILY PRN MC SEE COMMENTS; Start 10/16/19 at 10:45; Status UNV Info (PHARMACY MONITORING -- do not chart) 1 each PRN DAILY PRN MC SEE COMMENTS; Start 10/16/19 at 10:45 Sodium Chloride 1,000 ml @ 30 mls/hr Q24H IV Last administered on 10/17/19at 08:44; Start 10/16/19 at 14:45 Propofol 20 ml @ As Directed STK-MED ONCE IV ; Start 10/16/19 at 15:34; Stop 10/16/19 at 15:34; Status DC Dexamethasone Sodium Phosphate (Decadron) 4 mg STK-MED ONCE .ROUTE ; Start 10/16/19 at 15:34; Stop 10/16/19 at 15:34; Status DC Lidocaine HCl (Lidocaine Pf 2% Vial) 5 ml STK-MED ONCE .ROUTE ; Start 10/16/19 at 15:34; Stop 10/16/19 at 15:34; Status DC Ondansetron HCl (Zofran) 4 mg STK-MED ONCE .ROUTE ; Start 10/16/19 at 15:34; Stop 10/16/19 at 15:35; Status DC Rocuronium Quincy (Zemuron) 50 mg STK-MED ONCE .ROUTE ; Start 10/16/19 at 15:34; Stop 10/16/19 at 15:35; Status DC Bupivacaine HCl/ Epinephrine Bitart (Sensorcain-Epi 0.5%-1:109102 Mpf) 30 ml STK-MED ONCE .ROUTE Last administered on 10/16/19at 16:15; Start 10/16/19 at 15:44; Stop 10/16/19 at 15:44; Status DC Ketamine HCl (Ketamine) 50 mg STK-MED ONCE .ROUTE ; Start 10/16/19 at 16:03; Stop 10/16/19 at 16:03; Status DC Midazolam HCl (Versed) 2 mg STK-MED ONCE .ROUTE ; Start 10/16/19 at 16:03; Stop 10/16/19 at 16:03; Status DC Sodium Chloride 1,000 ml @ 0 mls/hr Q0M IV ; Start 10/17/19 at 08:45; Status Cancel Propofol 20 ml @ As Directed STK-MED ONCE IV ; Start 10/17/19 at 08:49; Stop 10/17/19 at 08:49; Status DC Lidocaine HCl (Lidocaine Pf 2% Vial) 5 ml STK-MED ONCE .ROUTE ; Start 10/17/19 at 08:49; Stop 10/17/19 at 08:49; Status DC Insulin Glargine (Lantus Syringe) 25 unit QHS SQ Last administered on 10/17/19at 21:27; Start 10/17/19 at 09:00; Stop 10/18/19 at 08:51; Status DC Insulin Human Lispro (HumaLOG) 6 units Q6HRS SQ Last administered on 10/17/19at 12:22; Start 10/17/19 at 09:00; Stop 10/18/19 at 08:51; Status DC Insulin Human Lispro (HumaLOG) 0-9 UNITS TIDWMEALS SQ ; Start 10/17/19 at 12:00 Dextrose (Dextrose 50%-Water Syringe) 12.5 gm PRN Q15MIN PRN IV SEE COMMENTS; Start 10/17/19 at 09:00; Status Cancel Dextrose (Iv Dextrose 5%) 250 ml PRN Q15MIN PRN IV SEE COMMENTS; Start 10/17/19 at 09:00; Status Cancel Sodium Chloride 1,000 ml @ 1,000 mls/hr Q1H PRN IV hypotension; Start 10/17/19 at 12:42; Stop 10/17/19 at 18:41; Status DC Sodium Chloride 1,000 ml @ 400 mls/hr Q2H30M PRN IV PATENCY; Start 10/17/19 at 12:42; Stop 10/18/19 at 00:41; Status DC Info (PHARMACY MONITORING -- do not chart) 1 each PRN DAILY PRN MC SEE COMMENTS; Start 10/17/19 at 12:45; Status UNV Info (PHARMACY MONITORING -- do not chart) 1 each PRN DAILY PRN MC SEE COMMENTS; Start 10/17/19 at 12:45; Status UNV Insulin Glargine (Lantus Syringe) 18 unit QHS SQ ; Start 10/18/19 at 21:00; Stop 10/18/19 at 11:42; Status DC Lansoprazole (Prevacid) 30 mg DAILY FT ; Start 10/19/19 at 09:00 Dextrose/Sodium Chloride 1,000 ml @ 75 mls/hr 1X ONCE IV Last administered on 10/18/19at 12:15; Start 10/18/19 at 11:45; Stop 10/19/19 at 01:04; Status DC Aspirin (Ecotrin) 325 mg DAILYWBKFT PO ; Start 10/19/19 at 08:00 Dextrose/Sodium Chloride 1,000 ml @ 75 mls/hr 1X ONCE IV Last administered on 10/19/19at 04:00; Start 10/19/19 at 04:00; Stop 10/19/19 at 17:19 Iodixanol (Visipaque 320) 100 ml STK-MED ONCE .ROUTE ; Start 10/19/19 at 08:08; Stop 10/19/19 at 08:09; Status DC Lidocaine HCl (Buffered Lidocaine 1%) 3 ml STK-MED ONCE .ROUTE ; Start 10/19/19 at 08:09; Stop 10/19/19 at 08:09; Status DC Heparin Sodium/ Sodium Chloride 1,500 ml @ As Directed STK-MED ONCE .ROUTE ; Start 10/19/19 at 08:09; Stop 10/19/19 at 08:09; Status DC Iodixanol (Visipaque 320) 100 ml STK-MED ONCE .ROUTE ; Start 10/19/19 at 08:09; Stop 10/19/19 at 08:09; Status DC Sodium Chloride 1,000 ml @ 1,000 mls/hr Q1H PRN IV hypotension; Start 10/19/19 at 08:24; Stop 10/19/19 at 14:23 Sodium Chloride 1,000 ml @ 400 mls/hr Q2H30M PRN IV PATENCY; Start 10/19/19 at 08:24; Stop 10/19/19 at 20:23 Info (PHARMACY MONITORING -- do not chart) 1 each PRN DAILY PRN MC SEE COMMENTS; Start 10/19/19 at 08:30 Info (PHARMACY MONITORING -- do not chart) 1 each PRN DAILY PRN MC SEE COMMENTS; Start 10/19/19 at 08:30 Midazolam HCl (Versed) 5 mg STK-MED ONCE .ROUTE ; Start 10/19/19 at 08:39; Stop 10/19/19 at 08:40; Status DC Fentanyl Citrate (Fentanyl 5ml Vial) 250 mcg STK-MED ONCE .ROUTE ; Start 10/19/19 at 08:39; Stop 10/19/19 at 08:40; Status DC Dextrose (Dextrose 50%-Water Syringe) 25 gm STK-MED ONCE IV ; Start 10/19/19 at 08:42; Stop 10/19/19 at 08:43; Status DC Heparin Sodium (Porcine) (Heparin Sodium) 10,000 unit STK-MED ONCE .ROUTE ; Start 10/19/19 at 09:11; Stop 10/19/19 at 09:12; Status DC Dextrose/Sodium Chloride 1,000 ml @ 75 mls/hr [id number] IV Last administered on 10/19/19at 09:30; Start 10/19/19 at 09:30 Furosemide (Lasix) 40 mg [id number] IVP ; Start 10/19/19 at 09:30 Heparin Sodium/ Sodium Chloride (HEPARIN for ARTERIAL LINE FLUSH) 1,000 unit 1X ONCE IART Last administered on 10/19/19at 09:30; Start 10/19/19 at 09:30; Stop 10/19/19 at 09:31; Status DC Heparin Sodium/ Sodium Chloride (HEPARIN for ARTERIAL LINE FLUSH) 1,000 unit 1X ONCE IART Last administered on 10/19/19at 09:30; Start 10/19/19 at 09:30; Stop 10/19/19 at 09:31; Status DC Lidocaine HCl (Buffered Lidocaine 1%) 3 ml 1X ONCE IJ Last administered on 10/19/19at 09:30; Start 10/19/19 at 09:30; Stop 10/19/19 at 09:31; Status DC Midazolam HCl (Versed) 5 mg 1X ONCE IV Last administered on 10/19/19at 09:30; Start 10/19/19 at 09:30; Stop 10/19/19 at 09:31; Status DC Fentanyl Citrate (Fentanyl 5ml Vial) 250 mcg 1X ONCE IV Last administered on 10/19/19at 09:30; Start 10/19/19 at 09:30; Stop 10/19/19 at 09:31; Status DC Iodixanol (Visipaque 320) 100 ml 1X ONCE IART Last administered on 10/19/19at 09:30; Start 10/19/19 at 09:30; Stop 10/19/19 at 09:31; Status DC Midazolam HCl (Versed) 2 mg STK-MED ONCE .ROUTE ; Start 10/19/19 at 09:57; Stop 10/19/19 at 09:57; Status DC Ketamine HCl (Ketamine) 50 mg STK-MED ONCE .ROUTE ; Start 10/19/19 at 09:57; Stop 10/19/19 at 09:57; Status DC Propofol 20 ml @ As Directed STK-MED ONCE IV ; Start 10/19/19 at 09:57; Stop 10/19/19 at 09:57; Status DC Iodixanol (Visipaque 320) 100 ml STK-MED ONCE .ROUTE ; Start 10/19/19 at 10:27; Stop 10/19/19 at 10:27; Status DC Heparin Sodium (Porcine) (Heparin Sodium) 5,000 unit 1X ONCE IV Last administered on 10/19/19at 10:50; Start 10/19/19 at 11:00; Stop 10/19/19 at 11:01; Status DC Active Scripts Active Humalog (Insulin Lispro) 100 Unit/1 Ml Insuln.pen 6 Units SQ Q6HRS 30 Days Lantus (Insulin Glargine,Hum.rec.anlog) 100 Unit/1 Ml Vial 25 Unit SQ QHS 30 Days Tramadol Hcl 50 Mg Tablet 50 Mg PO PRN Q6HRS PRN 3 Days Culturelle (Lactobacillus Rhamnosus Gg) 1 Each Cap.sprink 1 Cap PO BID 7 Days Aspirin Ec (Aspirin) 81 Mg Tablet. 81 Mg PO DAILYWBKFT Reported Glyburide 5 Mg Tablet 5 Mg PO DAILY Omeprazole 20 Mg Tablet. 20 Mg PO DAILY Calcitriol 0.5 Mcg Capsule 0.5 Mcg PO DAILY Furosemide 80 Mg Tablet 80 Mg PO BID Tamsulosin Hcl 0.4 Mg Cap.er.24h 1 Cap PO HS Montelukast Sodium Tablet (Montelukast Sodium) 10 Mg Tablet 1 Tab PO HS PRN Ondansetron Odt (Ondansetron) 4 Mg Tab.rapdis 1 Tab PO PRN Q6-8HRS PRN Cozaar (Losartan Potassium) 100 Mg Tablet 100 Mg PO HS Carvedilol 25 Mg Tablet 25 Mg PO BIDWMEALS Atorvastatin Calcium 40 Mg Tablet 40 Mg PO HS Vitals/I & O Vital Sign - Last 24 Hours 10/18/19 10/18/19 10/18/19 10/18/19 14:42 19:10 20:00 23:20 Temp 98.0 98.3 98.5 98.0 98.3 98.5 Pulse 85 56 54 Resp 18 16 16 B/P (MAP) 107/62 (77) 109/43 (65) 132/39 (70) Pulse Ox 91 99 95 O2 Delivery Nasal Cannula Nasal Cannula Nasal Cannula Nasal Cannula O2 Flow Rate 3.0 2.0 3.0 2.0 10/19/19 10/19/19 10/19/19 10/19/19 03:42 07:00 09:30 11:08 Temp 98.0 97.3 98.0 97.3 Pulse 95 72 92 Resp 16 18 12 10 B/P (MAP) 135/49 (77) 153/86 (108) Pulse Ox 96 96 100 100 O2 Delivery Nasal Cannula Nasal Cannula Nasal Cannula Nasal Cannula O2 Flow Rate 2.0 3.0 3.0 6.0 10/19/19 11:14 O2 Delivery Nasal Cannula O2 Flow Rate 6.0 Intake and Output 10/18/19 10/18/19 10/19/19 15:00 23:00 07:00 Intake Total 100 ml 0 ml 0 ml Output Total 800 ml Balance -700 ml 0 ml 0 ml Nutrition Consultation Dietary Evaluation: Recommendations by RD: Dietary education by RD Comments: REC continue TF as ordered REC mvi and vit c per wound protocal due to multiple skin breakdown areas - See wound assessment Expected Outcomes/Goals: to meet >75% est nutr needs via TF Interpretation of weight loss: >5% in 1 month Malnutrition Findings: Food and Nutrition Intake (Sev: <50% est energy req 5days Body Fat Depletion (Non Severe: Mild Depletion Weight Status: Underweight Hemodynamically unstable?: No Is patient in severe pain?: No Is NPO status required?: Yes RICKIE GRAMAJO MD Oct 19, 2019 11:28
[2019-10-19] MEDS ORDERED: fentaNYL PF VIAL 100 MCG/2 ML VIAL ONE (11:37)
--- NOTE | 2019-10-19 11:41 | PDOC ---
Provider Note Provider Note Vascular follow up: Please see full consult note from yesterday. Pt being seen for bilateral LE with gangrenous changes to multiple toes. He reports no complaints today, he has no questions about AARO that was recommended yesterday. Gen.: Alert and oriented 3. Cardiac: Heart rate regular. Lungs: CTA, nonlabored respirations. Abdomen: Soft, nontender, nondistended, no palpable masses. Extremities: 2+ palpable bilateral femoral pulses, unable to appreciate distal pulses. Feet with rooke boots on. Skin: Right first toe with gangrenous skin changes, skin changes at the base of all toes on the plantar surface of both feet. Gangrenous changes between the third and fourth toe on the left foot. No erythema or swelling. Neurological: Motor and sensation intact. A/P: 53 year old male with diabetes, end-stage renal disease on hemodialysis with atherosclerosis bilateral lower extremities with gangrenous changes to multiple toes. Arterial ultrasound as well as physical examination suggests diminished arterial flow bilaterally. Recommend continued protective measures with Rooke boots. Continue risk factor modification to include smoking cessation, aspirin and statin therapy. For AARO today. We will follow up with results tomorrow. RAUL AVITIA Oct 19, 2019 11:41
[2019-10-19] MEDS ORDERED: fentaNYL PF VIAL 100 MCG/2 ML VIAL IVP ONE (11:45)
[2019-10-19] MEDS ORDERED: DIGOXIN IV 500 MCG/2 ML AMPUL. IV ONE (14:15)
--- NOTE | 2019-10-19 14:23 | NUR ---
SS following up with discharge planning. Clinical updates phoned and faxed to [facility], ; fax [phone]. Pt had angiogram today with run off. SS will continue to follow for discharge planning.
[2019-10-19] MEDS: IV NORMAL SALINE 1000ML BAG 1,000 ML IV SCH (14:45)
--- NOTE | 2019-10-19 14:51 | PDOC ---
PROGRESS NOTES Assessment Assessment Metabolic encephalopathy. Dementia features. Dysphagia, no evidence of neuromuscular junction disease. Leukocytosis. Diabetic ketoacidosis. Hyperglycemia. Hypoglycemia. Chronic balanitis. End-stage renal disease on dialysis Anemia of chronic disease. HTN. HLD. AFib, never on treatment. COPD. CAD, s/p DC. Right bit toe wound. RECOMMENDATIONS/PLAN: Treat medical diseases. Control hyper and hypoglycemia. ASA daily. Statin HS. Consult cardiology for Afib. Consulted vascular Surgery for ischemic toe problem. OT/PT. Discussed with his brother at bedside again on 10/18/19. Past Medical History Cardiovascular: CAD, HTN, DC, Hyperlipidemia Pulmonary: COPD CENTRAL NERVOUS SYSTEM: Periperal neuropathy Psych: Anxiety, Depression Musculoskeletal: Osteoarthritis Renal/: Chronic renal failure ( peritoneal dialysis), Other (balanitis) Endocrine: Diabetes ( type I) Past Surgical History Coronary angioplasty, dialysis center, peritoneal dialysis catheter, arthroscopic knee, fasciotomy, facial fractures, left foot, sinus. Family History Cancer Social History Used to use alcohol heavily, marijuana, other street drugs, still smokes tobacco, unemployed for over 3 years, Allergies Coded Allergies: Lamotrigine (Verified Allergy, Severe, HIVES, SHORTNESS OF BREATH, 08/27/19) ROS Negative for fever, chills, weight loss, shortness of breath, chest pain, indigestion, hematochezia, melena, and dysuria. Full 14-point review of systems is negative. MEDICATIONS: Refer to MAR PHYSICAL EXAMINATION: General appearance in subacute distress. HEENT: Normocephalic and nontraumatic. Eyes, nose, ears, and throat are unremarkable. Hearing decrease. Neck is supple. No lymphadenopathy. No Crepitus. Cardiovascular: S1, S2, irregular and irregular rhythm. Pulmonary: Mildly decreased to auscultation bilaterally. Abdomen: Bowel sounds are positive. Extremities: No rash, lesions, or edema. No restriction of range of motion NEUROLOGICAL EXAMINATION: Awake. Not fully oriented to time, but knew place and person. PERRL. EOMI. CN: no focal findings. Muscle tone: within normal. Muscle strength: 4 DTR: 1-2 UE, 0-1 at knee. Plantar reflex: Neutral response bilaterally Gait: not examined in bed. Sensory exam: no abnormal findings. No cerebellar signs elicited. F-T-N test fine. Objective Objective Vital Signs Date Time Temp Pulse Resp B/P (MAP) Pulse Ox O2 Delivery O2 Flow Rate FiO2 10/19/19 11:44 97.3 96 104/56 98 Nasal Cannula 3.0 97.3 10/19/19 11:42 15 Intake and Output 10/19/19 07:00 Intake Total 100 ml Output Total 800 ml Balance -700 ml Tube Feeding 100 ml Output Urine Total 800 ml Vitals Signs Vitals VS - Last 72 Hours, by Label Date Time Temp Pulse Resp B/P (MAP) Pulse Ox O2 Delivery O2 Flow Rate FiO2 10/19/19 11:44 97.3 96 104/56 98 Nasal Cannula 3.0 97.3 10/19/19 11:42 15 98 Nasal Cannula 3.0 10/19/19 11:29 97.3 96 15 104/47 95 Nasal Cannula 3 97.3 10/19/19 11:14 Nasal Cannula 6.0 10/19/19 11:14 97.3 92 15 102/57 98 Nasal Cannula 2 97.3 10/19/19 11:08 92 10 100 Nasal Cannula 6.0 10/19/19 09:30 12 100 Nasal Cannula 3.0 10/19/19 08:00 Nasal Cannula 3.0 10/19/19 07:00 97.3 72 18 153/86 (108) 96 Nasal Cannula 3.0 97.3 10/19/19 03:42 98.0 95 16 135/49 (77) 96 Nasal Cannula 2.0 98.0 10/18/19 23:20 98.5 54 16 132/39 (70) 95 Nasal Cannula 2.0 98.5 10/18/19 20:00 Nasal Cannula 3.0 10/18/19 19:10 98.3 56 16 109/43 (65) 99 Nasal Cannula 2.0 98.3 10/18/19 14:42 98.0 85 18 107/62 (77) 91 Nasal Cannula 3.0 98.0 10/18/19 10:44 97.6 55 18 130/61 (84) 99 Nasal Cannula 3.0 97.6 10/18/19 08:00 Nasal Cannula 3.0 10/18/19 07:00 97.4 65 18 123/58 (79) 95 Nasal Cannula 3.0 97.4 Laboratory Laboratory Laboratory Tests Test 10/18/19 17:52 10/18/19 23:33 10/19/19 03:28 10/19/19 05:30 Glucose (Fingerstick) 108 mg/dL (70-99) 151 mg/dL (70-99) 90 mg/dL (70-99) Sodium Level 135 mmol/L (136-145) Potassium Level 3.9 mmol/L (3.5-5.1) Chloride Level 99 mmol/L (98-107) Carbon Dioxide Level 30 mmol/L (21-32) Anion Gap 6 (6-14) Blood Urea Nitrogen 19 mg/dL (8-26) Creatinine 3.2 mg/dL (0.7-1.3) Estimated GFR (Cockcroft-Gault) 20.3 Glucose Level 63 mg/dL (70-99) Calcium Level 8.3 mg/dL (8.5-10.1) Phosphorus Level 3.4 mg/dL (2.6-4.7) Albumin 1.1 g/dL (3.4-5.0) Test 10/19/19 07:57 10/19/19 08:57 10/19/19 09:44 10/19/19 11:04 Glucose (Fingerstick) 52 mg/dL (70-99) 74 mg/dL (70-99) 87 mg/dL (70-99) 100 mg/dL (70-99) Test 10/19/19 11:29 10/19/19 11:56 10/19/19 12:41 Glucose (Fingerstick) 90 mg/dL (70-99) 93 mg/dL (70-99) 108 mg/dL (70-99) Microbiology 10/12/19 Blood Culture - Final, Complete NO GROWTH AFTER 5 DAYS 10/08/19 Aerobic Culture - Final, Complete 10/08/19 Aerobic Culture Result 1 (HEATHER) - Final, Complete 10/08/19 Gram Stain - Final, Complete 10/08/19 Gram Stain Result 1 (HEATHER) - Final, Complete 10/08/19 Gram Stain Result 2 (HEATHER) - Final, Complete Medication Medications Current Medications Aspirin (Ecotrin) 325 mg DAILYWBKFT PO ; Start 10/19/19 at 08:00 Dextrose (Dextrose 50%-Water Syringe) 25 gm STK-MED ONCE IV ; Start 10/19/19 at 08:42; Stop 10/19/19 at 08:43; Status DC Dextrose/Sodium Chloride 1,000 ml @ 75 mls/hr 1X ONCE IV Last administered on 10/19/19at 04:00; Start 10/19/19 at 04:00; Stop 10/19/19 at 17:19 Dextrose/Sodium Chloride 1,000 ml @ 75 mls/hr [id number] IV Last administered on 10/19/19at 09:30; Start 10/19/19 at 09:30 Digoxin (Lanoxin) 250 mcg 1X ONCE IV ; Start 10/19/19 at 14:15; Stop 10/19/19 at 14:16; Status Cancel Fentanyl Citrate (Fentanyl 2ml Vial) 100 mcg 1X ONCE IVP Last administered on 10/19/19at 11:42; Start 10/19/19 at 11:45; Stop 10/19/19 at 11:46; Status DC Fentanyl Citrate (Fentanyl 2ml Vial) 100 mcg STK-MED ONCE .ROUTE ; Start 10/19/19 at 11:37; Stop 10/19/19 at 11:37; Status DC Fentanyl Citrate (Fentanyl 5ml Vial) 250 mcg 1X ONCE IV Last administered on 10/19/19at 09:30; Start 10/19/19 at 09:30; Stop 10/19/19 at 09:31; Status DC Fentanyl Citrate (Fentanyl 5ml Vial) 250 mcg STK-MED ONCE .ROUTE ; Start 10/19/19 at 08:39; Stop 10/19/19 at 08:40; Status DC Furosemide (Lasix) 40 mg [id number] IVP ; Start 10/19/19 at 09:30 Heparin Sodium (Porcine) (Heparin Sodium) 5,000 unit 1X ONCE IV Last administered on 10/19/19at 10:50; Start 10/19/19 at 11:00; Stop 10/19/19 at 11:01; Status DC Heparin Sodium (Porcine) (Heparin Sodium) 10,000 unit STK-MED ONCE .ROUTE ; Start 10/19/19 at 09:11; Stop 10/19/19 at 09:12; Status DC Heparin Sodium/ Sodium Chloride 1,500 ml @ As Directed STK-MED ONCE .ROUTE ; Start 10/19/19 at 08:09; Stop 10/19/19 at 08:09; Status DC Heparin Sodium/ Sodium Chloride (HEPARIN for ARTERIAL LINE FLUSH) 1,000 unit 1X ONCE IART Last administered on 10/19/19at 09:30; Start 10/19/19 at 09:30; Stop 10/19/19 at 09:31; Status DC Heparin Sodium/ Sodium Chloride (HEPARIN for ARTERIAL LINE FLUSH) 1,000 unit 1X ONCE IART Last administered on 10/19/19at 09:30; Start 10/19/19 at 09:30; Stop 10/19/19 at 09:31; Status DC Info (PHARMACY MONITORING -- do not chart) 1 each PRN DAILY PRN MC SEE COMMENTS; Start 10/19/19 at 08:30 Info (PHARMACY MONITORING -- do not chart) 1 each PRN DAILY PRN MC SEE COMMENTS; Start 10/19/19 at 08:30; Status Cancel Insulin Glargine (Lantus Syringe) 18 unit QHS SQ ; Start 10/18/19 at 21:00; Stop 10/18/19 at 11:42; Status DC Iodixanol (Visipaque 320) 100 ml 1X ONCE IART Last administered on 10/19/19at 09:30; Start 10/19/19 at 09:30; Stop 10/19/19 at 09:31; Status DC Iodixanol (Visipaque 320) 100 ml STK-MED ONCE .ROUTE ; Start 10/19/19 at 08:08; Stop 10/19/19 at 08:09; Status DC Iodixanol (Visipaque 320) 100 ml STK-MED ONCE .ROUTE ; Start 10/19/19 at 08:09; Stop 10/19/19 at 08:09; Status DC Iodixanol (Visipaque 320) 100 ml STK-MED ONCE .ROUTE ; Start 10/19/19 at 10:27; Stop 10/19/19 at 10:27; Status DC Ketamine HCl (Ketamine) 50 mg STK-MED ONCE .ROUTE ; Start 10/19/19 at 09:57; Stop 10/19/19 at 09:57; Status DC Lansoprazole (Prevacid) 30 mg DAILY FT ; Start 10/19/19 at 09:00 Lidocaine HCl (Buffered Lidocaine 1%) 3 ml 1X ONCE IJ Last administered on 10/19/19at 09:30; Start 10/19/19 at 09:30; Stop 10/19/19 at 09:31; Status DC Lidocaine HCl (Buffered Lidocaine 1%) 3 ml STK-MED ONCE .ROUTE ; Start 10/19/19 at 08:09; Stop 10/19/19 at 08:09; Status DC Metoprolol Tartrate (Lopressor) 25 mg BID PO ; Start 10/19/19 at 21:00 Midazolam HCl (Versed) 2 mg STK-MED ONCE .ROUTE ; Start 10/19/19 at 09:57; Stop 10/19/19 at 09:57; Status DC Midazolam HCl (Versed) 5 mg 1X ONCE IV Last administered on 10/19/19at 09:30; Start 10/19/19 at 09:30; Stop 10/19/19 at 09:31; Status DC Midazolam HCl (Versed) 5 mg STK-MED ONCE .ROUTE ; Start 10/19/19 at 08:39; Stop 10/19/19 at 08:40; Status DC Propofol 20 ml @ As Directed STK-MED ONCE IV ; Start 10/19/19 at 09:57; Stop 10/19/19 at 09:57; Status DC Propofol (Diprivan) 200 mg STK-MED ONCE IV ; Start 10/19/19 at 10:00; Stop 10/19/19 at 13:05; Status DC Sodium Chloride 1,000 ml @ 400 mls/hr Q2H30M PRN IV PATENCY; Start 10/19/19 at 08:24; Stop 10/19/19 at 20:23 Sodium Chloride 1,000 ml @ 1,000 mls/hr Q1H PRN IV hypotension; Start 10/19/19 at 08:24; Stop 10/19/19 at 14:23; Status DC Comment Review of Relevant I have reviewed the following items alex (where applicable) has been applied. LISETTE PADILLA MD Oct 19, 2019 14:51
[2019-10-19 16:00] VITALS: BP 117/62
--- NOTE | 2019-10-19 16:18 | RAD ---
10/19/2019 1. Abdominal aortogram 2. Pelvic angiography 3. Bilateral lower extremity angiography 4. Angioplasty of the right popliteal artery 5. Angioplasty of the right anterior tibial artery 6. Angioplasty of the posterior tibial artery INDICATION: Critical limb ischemia. Ischemic changes of the bilateral feet, right greater than left. Right great toe gangrene The procedure was explained in its entirety to the patient or the patients designated sales representative jewelry by a member of the treatment team, including a discussion of the risks, benefits and commonly accepted alternatives to the procedure, as well as the expected consequences of no therapy whatsoever. Discussion of the risks included, but was not limited to, those that are most frequent and those that are rare but possibly severe or life-threatening, as well as the possibility of unforeseen complications. All elements of maximal sterile barrier technique including the use of a cap, mask, sterile gown, sterile gloves, large sterile sheet, appropriate hand hygiene, and 2% chlorhexidine for cutaneous antisepsis (or acceptable alternative antiseptic per current guidelines) were followed for this procedure. Total fluoroscopy time: 23 minutes min Dose area product: 118 Gycm2 The procedures performed under conscious sedation including continuous cardiopulmonary monitoring via dedicated sedation nurse. Ilms-ki-oahy sedation time: 60 minutes of moderate sedation was provided by the interventional radiology service, with subsequent need for deeper anesthesia performed via the anesthesia department. The left groin was prepped and draped as described. The left common femoral artery was evaluated by ultrasound and found to be heavily calcified but patent. The artery was accessed using direct ultrasound guidance and micropuncture technique. Reference ultrasound images were saved the medical record. A 5 Maltese vascular sheath was placed. An Omni flush catheter was advanced into the abdominal aorta. Abdominal aortogram was obtained. No evidence of aortic stenosis or aneurysm is seen. The visualized mesenteric vessels appear to be grossly patent, the origins nonvisualized on this anterior aortogram. Bilateral pelvic angiography was then performed no hemodynamically significant aortoiliac stenosis is appreciated. Mild narrowing of the right common femoral artery with dense plaque is seen. The appearance does not appear to be flow-limiting similar findings noted on the contralateral side with a relatively high bifurcation of the profunda and SFA arteries on the left. The aortic bifurcation was crossed. The catheter was then positioned in the common femoral artery. Right lower extremity angiography was performed mild narrowings the right profunda artery are present. The right superficial femoral artery demonstrates mild areas of nonflow limiting stenosis proximally. Similarly mild nonflow limiting stenoses are present more distally. There is a higher grade stenosis involving the [id number] popliteal artery of approximately 70%. The catheter was then positioned in the popliteal artery and angiograms runoff vessels were obtained. This is significantly limited secondary to motion despite attempts at moderate sedation. The anesthesia department was consulted and generously agreed to provide deeper sedation. The anterior tibial artery is diffusely small in caliber. There is distal stenosis above the ankle. The anterior tibial artery is then occluded. No significant reconstitution of the dorsalis pedis artery is identified. The tibial peroneal trunk is patent. The peroneal artery is chronically occluded beyond its origin without significant distal reconstitution.. Multiple near occlusions of the posterior tibial artery are seen throughout its course. The posterior tibial artery is occluded above the ankle without significant reconstitution. Catheters were positioned in the distal tibial arteries in attendance to decipher whether some distal flow within the dorsalis pedis or lateral plantar artery is present, none was identified. In an attempt to improve inflow, angioplasty was then performed of the anterior tibial artery and posterior tibial artery with 2.5 and 2.0 mm balloons respectfully. This resulted in significantly improved morphology and flow within these vessels. Balloon angioplasty of the [id number] popliteal artery isn't performed with a 4 mm balloon resulting in improved morphology and flow. Left lower extremity angiography was then performed through the pre-existing sheath moderate stenosis of the proximal left SFA is seen. Mild nonflow limiting stenosis are seen in the mid left SFA. Mild to moderate stenosis seen of distal left SFA. High-grade stenosis is seen within the [id number] popliteal artery and moderate stenosis is seen in the [id number]-jni-jcos popliteal artery. There is high-grade since stenosis at the origin of the anterior tibial artery and origin of the tibial peroneal trunk. Multiple moderate narrowings of the tibial peroneal trunk are seen. Posterior tibial artery is occluded proximally. The peroneal artery demonstrates multiple tandem mild stenoses appears to be patent to above the ankle. Evaluation of flow the distal peroneal and anterior tibial artery is limited. Some flow to the ankle is present. There is likely diminished flow to the foot. Angiography from the more distal position may be helpful. Guidewires and sheaths were removed. A Mynx closure device was used to achieve hemostasis. Sterile dressings were applied. No immediate complications were identified. IMPRESSION: 1. Diffuse atherosclerotic vascular disease without hemodynamically significant aortoiliac stenosis. 2. 70% stenosis of the right popliteal artery treated with balloon angioplasty 3. Areas of stenosis within the anterior tibial and posterior tibial artery treated with balloon angioplasty 4. Unfortunately no significant reconstitution of the dorsalis pedis or lateral plantar artery is seen, and despite more proximal revascularization, blood flow to the midfoot beyond remains poor. 5. Moderate stenosis proximal left SFA. Moderate stenosis distal SFA. High-grade stenosis left popliteal artery. Occlusion of the posterior tibial artery. High-grade stenosis at the origin of the anterior tibial artery, which appears to be the dominant blood supply to the foot. Multiple moderate narrowings of the posterior tibial artery appear to be present. Dedicated left lower extremity angiography may be helpful.
[2019-10-19] MEDS: ASPIRIN ENTERIC COATED 81 MG TABLET.DR. PO SCH (16:19)
[2019-10-19] MEDS: LACTOBACILLUS RHAMNOSUS GG 1 CAPSULE. PO SCH ×2 (16:19→22:48)
[2019-10-19] MEDS: LANSOPRAZOLE 30 MG TAB.RAP.DR FT SCH (16:19)
[2019-10-19] MEDS: ACETAMINOPHEN 325 MG TABLET. PO PRN (17:56)
[2019-10-19 19:53] VITALS: BP 111/58
[2019-10-19] MEDS: ATORVASTATIN CALCIUM 40 MG TABLET. PO SCH (22:48)
[2019-10-19] MEDS: TAMSULOSIN 0.4 MG CAP.ER.24H. PO SCH (22:48)
[2019-10-19] MEDS: METOPROLOL TART IMMED RELEASE 25 MG TABLET. PO SCH (22:49)
[2019-10-19] MEDS: LOSARTAN POTASSIUM 50 MG TABLET. PO SCH (22:51)
[2019-10-19 23:07] VITALS: BP 168/48
[2019-10-20] VITALS (12 sets, daily range): BP systolic 111–163; BP diastolic 36–75
[2019-10-20 06:25] LABS: BASO # 0.1 x10^3/uL (0.0-0.2); BASO % 1 % (0-3); EOS % 1 % (0-3); HEMATOCRIT 21.5 % (39.0-53.0); LYMPH # 0.5 x10^3/uL (1.0-4.8); LYMPH % 7 % (24-48); MEAN CORPUSCULAR HEMOGLOBIN 30 pg (25-35); MEAN CORPUSCULAR HGB CONC 32 g/dL (31-37); MEAN CORPUSCULAR VOLUME 95 fL (79-100); MONO # 0.6 x10^3/uL (0.0-1.1); MONO % 9 % (0-9); NEUT # 5.9 x10^3/uL (1.8-7.7); NEUT % 83 % (31-73); PLATELET COUNT 237 x10^3/uL (140-400); RED BLOOD COUNT 2.26 x10^6/uL (4.30-5.70); RED CELL DISTRIBUTION WIDTH 16.3 % (11.5-14.5); WHITE BLOOD COUNT 7.1 x10^3/uL (4.0-11.0)
[2019-10-20 06:31] LABS: CREATININE 2.4 mg/dL (0.7-1.3); GFR 28.4; POTASSIUM 3.9 mmol/L (3.5-5.1)
[2019-10-20 06:42] LABS: HEMOGLOBIN 6.8 g/dL (13.0-17.5)
--- NOTE | 2019-10-20 09:59 | PDOC ---
Provider Note Provider Note Pt without complaints following angio and multilevel angioplasty angio reviewed partial dry gangrene right great toe Plan: cont observation to allow demarcation. No plans to bypass right leg Cont. to observe left foot digits. May need percutaneous intervention left leg. Hemodynamically unstable?: No Is patient in severe pain?: No Is NPO status required?: Yes JUSTIN JOSE II, MD Oct 20, 2019 09:59
[2019-10-20] MEDS: CALCIUM ACETATE 667 MG CAPSULE PO SCH ×3 (10:02→17:43)
[2019-10-20] MEDS: ASPIRIN ENTERIC COATED 81 MG TABLET.DR. PO SCH (10:02)
[2019-10-20] MEDS: FUROSEMIDE 40 MG/4 ML VIAL. IVP SCH ×2 (10:03→14:11)
[2019-10-20] MEDS: LACTOBACILLUS RHAMNOSUS GG 1 CAPSULE. PO SCH ×2 (10:03→22:30)
[2019-10-20] MEDS: METOPROLOL TART IMMED RELEASE 25 MG TABLET. PO SCH ×2 (10:03→22:30)
[2019-10-20] MEDS: LANSOPRAZOLE 30 MG TAB.RAP.DR FT SCH (10:08)
[2019-10-20] MEDS: INSULIN LISPRO 300 UNITS/3 ML VIAL. SQ SCH ×3 (10:38→17:00)
--- NOTE | 2019-10-20 11:13 | PDOC ---
PROGRESS NOTES Chief Complaint Chief Complaint impression PAD, acute stenosis BILATERAL FEM ARTERIES Moderate stenosis proximal left SFA. Moderate stenosis distal SFA. High-grade stenosis left popliteal artery. Occlusion of the posterior tibial artery. High-grade stenosis at the origin of the anterior tibial artery, which appears to be the dominant blood supply to the foot RT necrotic big toe/gangrene RT BOG tOE gangrene HYPOGLYCEMIA - 10/17 Acute encephalopathy - metabolic 2/2 DKA and toxic 2/2 likely infectious etiology. Still somewhat confused DKA, type 2 - off insulin GTT. will repeat BMP, Elevated alkaline phosphatase level - monitor, Lactic acidosis - likely due to diabetes mellitus. Will trend Penile cellulitis - present on admission, likely from failure to f/u outpatient - Doxy and augmentin with fluconazole previously./// culture and consult ID ESRD on HD transitioning to PD prior to his admission - tolerating well. Will consult nephrology Sepsis - from penile cellulitis as etiology, f/u cultures. Previously with coag negative staph on PD culture. F/u repeat culture HTN - cont meds DM type 2 insulin requiring - now hyperglycemic, previously with hypoglycemic event - hypoglycemia protocol. Cont insulin basal bolus plus once out of DKA Severe protein calorie malnutrition - unclear etiology, albumin 1.2, definitely has inconsistent PO intake. Facility Security Officer to see Anemia - of chronic renal disease Penile cellulitis, could have a component of vasculature involvement. U/S shows no abscess - painless ulcer concerning. Syphilis testing negative previously. Wound care to see Gait instability - needs further PT Anemia - of chronic renal disease Hyperphosphatemia - likely related to phos binder compliance difficulties. add phos binder, post angio and multilevel angioplasty 10/19 38 min pt exam, chart review, > 50% of time spent with exam, chart review, pt care coordination History of Present Illness History of Present Illness HE is out having arteriogram and revascularization plans for limb salvage by vasc sx Off abx - dw ID SLated for lTAC Wound care also on board, discovered the gangrenous big toe HYpoglycemia persisted yesterday despite TF via PEG at 30cc (goal 40cc/hr) - new PEG NEeded 2 Litres of dextrose iVF PLAn: POst op labs POst op care Amputtaion vs stenting Dectrose iVF prn/gtt for hYPOGLYCEMIA - off insulin now (was on SQ pushes) LTAC on dc NUtrition consulted, skin and bones FUll code Brother is his support family Vitals Vitals Vital Signs Date Time Temp Pulse Resp B/P (MAP) Pulse Ox O2 Delivery O2 Flow Rate FiO2 10/20/19 10:03 75 136/42 10/20/19 07:40 98.2 18 97 Room Air 98.2 10/19/19 20:00 3.0 Physical Exam Physical Exam GENERAL: Alert today. in bed - NAD - coop HEENT: Normocephalic, atraumatic, anicteric. No thrush. NECK: No tenderness. Supple, no JVD, LUNGS: Clear. HEART: S1, S2. ABDOMEN: Soft. PD catheter in place, nontender, nondistended. GENITOURINARY: Penile swelling, min redness with eschar like lesion,, No purulence noted - No drainage today - still painful EXTREMITIES: no pedal edema/swelling/joint pain or erythema SKIN: Dry skin. No cyanosis.superficial skin erythema on back pressure changes NEUROLOGIC:Answering questions well. appropriate PSYCHIATRIC flat General: Alert, Cooperative, No acute distress Heart: Regular rate, Normal S1, Normal S2 Lungs: Clear, Other Abdomen: Normal bowel sounds, Soft, Other (lap sites c/d/i) Extremities: No clubbing, No cyanosis Skin: No rashes, No breakdown Labs LABS PATIENT: DUANE IQBAL ACCOUNT: [id number] : 1965 LOCATION: [address] [place] [address] AGE: 53 SEX: M EXAM STATUS: ADM IN ORD. PHYSICIAN: LUIS MCFARLAND APRN REASON: AARO bilateral lower extremity toe gangrene, diminished pulses PROCEDURE: [id number] ANGIO ABDOMIN AORTOGRAM 10/19/2019 1. Abdominal aortogram 2. Pelvic angiography 3. Bilateral lower extremity angiography 4. Angioplasty of the right popliteal artery 5. Angioplasty of the right anterior tibial artery 6. Angioplasty of the posterior tibial artery INDICATION: Critical limb ischemia. Ischemic changes of the bilateral feet, right greater than left. Right great toe gangrene The procedure was explained in its entirety to the patient or the patients designated hvac sales representative by a member of the treatment team, including a discussion of the risks, benefits and commonly accepted alternatives to the procedure, as well as the expected consequences of no therapy whatsoever. Discussion of the risks included, but was not limited to, those that are most frequent and those that are rare but possibly severe or life-threatening, as well as the possibility of unforeseen complications. All elements of maximal sterile barrier technique including the use of a cap, mask, sterile gown, sterile gloves, large sterile sheet, appropriate hand hygiene, and 2% chlorhexidine for cutaneous antisepsis (or acceptable alternative antiseptic per current guidelines) were followed for this procedure. Total fluoroscopy time: 23 minutes min Dose area product: 118 Gycm2 The procedures performed under conscious sedation including continuous cardiopulmonary monitoring via dedicated sedation nurse. [id number] sedation time: 60 minutes of moderate sedation was provided by the interventional radiology service, with subsequent need for deeper anesthesia performed via the anesthesia department. The left groin was prepped and draped as described. The left common femoral artery was evaluated by ultrasound and found to be heavily calcified but patent. The artery was accessed using direct ultrasound guidance and micropuncture technique. Reference ultrasound images were saved the medical record. A 5 [place] vascular sheath was placed. An Omni flush catheter was advanced into the abdominal aorta. Abdominal aortogram was obtained. No evidence of aortic stenosis or aneurysm is seen. The visualized mesenteric vessels appear to be grossly patent, the origins nonvisualized on this anterior aortogram. Bilateral pelvic angiography was then performed no hemodynamically significant aortoiliac stenosis is appreciated. Mild narrowing of the right common femoral artery with dense plaque is seen. The appearance does not appear to be flow-limiting similar findings noted on the contralateral side with a relatively high bifurcation of the profunda and SFA arteries on the left. The aortic bifurcation was crossed. The catheter was then positioned in the common femoral artery. Right lower extremity angiography was performed mild narrowings the right profunda artery are present. The right superficial femoral artery demonstrates mild areas of nonflow limiting stenosis proximally. Similarly mild nonflow limiting stenoses are present more distally. There is a higher grade stenosis involving the pofys-muf-bpmp popliteal artery of approximately 70%. The catheter was then positioned in the popliteal artery and angiograms runoff vessels were obtained. This is significantly limited secondary to motion despite attempts at moderate sedation. The anesthesia department was consulted and generously agreed to provide deeper sedation. The anterior tibial artery is diffusely small in caliber. There is distal stenosis above the ankle. The anterior tibial artery is then occluded. No significant reconstitution of the dorsalis pedis artery is identified. The tibial peroneal trunk is patent. The peroneal artery is chronically occluded beyond its origin without significant distal reconstitution.. Multiple near occlusions of the posterior tibial artery are seen throughout its course. The posterior tibial artery is occluded above the ankle without significant reconstitution. Catheters were positioned in the distal tibial arteries in attendance to decipher whether some distal flow within the dorsalis pedis or lateral plantar artery is present, none was identified. In an attempt to improve inflow, angioplasty was then performed of the anterior tibial artery and posterior tibial artery with 2.5 and 2.0 mm balloons respectfully. This resulted in significantly improved morphology and flow within these vessels. Balloon angioplasty of the [id number]-ytz-rdci popliteal artery isn't performed with a 4 mm balloon resulting in improved morphology and flow. Left lower extremity angiography was then performed through the pre-existing sheath moderate stenosis of the proximal left SFA is seen. Mild nonflow limiting stenosis are seen in the mid left SFA. Mild to moderate stenosis seen of distal left SFA. High-grade stenosis is seen within the ejpja-slk-jkrc popliteal artery and moderate stenosis is seen in the camrp-hcq-lxue popliteal artery. There is high-grade since stenosis at the origin of the anterior tibial artery and origin of the tibial peroneal trunk. Multiple moderate narrowings of the tibial peroneal trunk are seen. Posterior tibial artery is occluded proximally. The peroneal artery demonstrates multiple tandem mild stenoses appears to be patent to above the ankle. Evaluation of flow the distal peroneal and anterior tibial artery is limited. Some flow to the ankle is present. There is likely diminished flow to the foot. Angiography from the more distal position may be helpful. Guidewires and sheaths were removed. A Mynx closure device was used to achieve hemostasis. Sterile dressings were applied. No immediate complications were identified. IMPRESSION: 1. Diffuse atherosclerotic vascular disease without hemodynamically significant aortoiliac stenosis. 2. 70% stenosis of the right popliteal artery treated with balloon angioplasty 3. Areas of stenosis within the anterior tibial and posterior tibial artery treated with balloon angioplasty 4. Unfortunately no significant reconstitution of the dorsalis pedis or lateral plantar artery is seen, and despite more proximal revascularization, blood flow to the midfoot beyond remains poor. 5. Moderate stenosis proximal left SFA. Moderate stenosis distal SFA. High-grade stenosis left popliteal artery. Occlusion of the posterior tibial artery. High-grade stenosis at the origin of the anterior tibial artery, which appears to be the dominant blood supply to the foot. Multiple moderate narrowings of the posterior tibial artery appear to be present. Dedicated left lower extremity angiography may be helpful. DICTATED and SIGNED BY: MARYANNE PERRY MD DATE: 10/19/19 9360 Laboratory Tests Test 10/19/19 11:29 10/19/19 11:56 10/19/19 12:41 10/19/19 16:02 Glucose (Fingerstick) 90 mg/dL (70-99) 93 mg/dL (70-99) 108 mg/dL (70-99) 57 mg/dL (70-99) Test 10/19/19 16:58 10/19/19 23:01 10/20/19 06:00 10/20/19 10:02 Glucose (Fingerstick) 92 mg/dL (70-99) 164 mg/dL (70-99) 336 mg/dL (70-99) White Blood Count 7.1 x10^3/uL (4.0-11.0) Red Blood Count 2.26 x10^6/uL (4.30-5.70) Hemoglobin 6.8 g/dL (13.0-17.5) Hematocrit 21.5 % (39.0-53.0) Mean Corpuscular Volume 95 fL (79-100) Mean Corpuscular Hemoglobin 30 pg (25-35) Mean Corpuscular Hemoglobin Concent 32 g/dL (31-37) Red Cell Distribution Width 16.3 % (11.5-14.5) Platelet Count 237 x10^3/uL (140-400) Neutrophils (%) (Auto) 83 % (31-73) Lymphocytes (%) (Auto) 7 % (24-48) Monocytes (%) (Auto) 9 % (0-9) Eosinophils (%) (Auto) 1 % (0-3) Basophils (%) (Auto) 1 % (0-3) Neutrophils # (Auto) 5.9 x10^3/uL (1.8-7.7) Lymphocytes # (Auto) 0.5 x10^3/uL (1.0-4.8) Monocytes # (Auto) 0.6 x10^3/uL (0.0-1.1) Eosinophils # (Auto) 0.0 x10^3/uL (0.0-0.7) Basophils # (Auto) 0.1 x10^3/uL (0.0-0.2) Sodium Level 133 mmol/L (136-145) Potassium Level 3.9 mmol/L (3.5-5.1) Chloride Level 98 mmol/L (98-107) Carbon Dioxide Level 30 mmol/L (21-32) Anion Gap 5 (6-14) Blood Urea Nitrogen 12 mg/dL (8-26) Creatinine 2.4 mg/dL (0.7-1.3) Estimated GFR (Cockcroft-Gault) 28.4 Glucose Level 343 mg/dL (70-99) Calcium Level 8.0 mg/dL (8.5-10.1) Comment Review of Relevant I have reviewed the following items alex (where applicable) has been applied. Labs Laboratory Tests Test 10/18/19 11:37 10/18/19 12:24 10/18/19 17:52 10/18/19 23:33 Glucose (Fingerstick) 40 mg/dL (70-99) 81 mg/dL (70-99) 108 mg/dL (70-99) 151 mg/dL (70-99) Test 10/19/19 03:28 10/19/19 05:30 10/19/19 07:57 10/19/19 08:57 Glucose (Fingerstick) 90 mg/dL (70-99) 52 mg/dL (70-99) 74 mg/dL (70-99) Sodium Level 135 mmol/L (136-145) Potassium Level 3.9 mmol/L (3.5-5.1) Chloride Level 99 mmol/L (98-107) Carbon Dioxide Level 30 mmol/L (21-32) Anion Gap 6 (6-14) Blood Urea Nitrogen 19 mg/dL (8-26) Creatinine 3.2 mg/dL (0.7-1.3) Estimated GFR (Cockcroft-Gault) 20.3 Glucose Level 63 mg/dL (70-99) Calcium Level 8.3 mg/dL (8.5-10.1) Phosphorus Level 3.4 mg/dL (2.6-4.7) Albumin 1.1 g/dL (3.4-5.0) Test 10/19/19 09:44 10/19/19 11:04 10/19/19 11:29 10/19/19 11:56 Glucose (Fingerstick) 87 mg/dL (70-99) 100 mg/dL (70-99) 90 mg/dL (70-99) 93 mg/dL (70-99) Test 10/19/19 12:41 10/19/19 16:02 10/19/19 16:58 10/19/19 23:01 Glucose (Fingerstick) 108 mg/dL (70-99) 57 mg/dL (70-99) 92 mg/dL (70-99) 164 mg/dL (70-99) Test 10/20/19 06:00 10/20/19 10:02 White Blood Count 7.1 x10^3/uL (4.0-11.0) Red Blood Count 2.26 x10^6/uL (4.30-5.70) Hemoglobin 6.8 g/dL (13.0-17.5) Hematocrit 21.5 % (39.0-53.0) Mean Corpuscular Volume 95 fL (79-100) Mean Corpuscular Hemoglobin 30 pg (25-35) Mean Corpuscular Hemoglobin Concent 32 g/dL (31-37) Red Cell Distribution Width 16.3 % (11.5-14.5) Platelet Count 237 x10^3/uL (140-400) Neutrophils (%) (Auto) 83 % (31-73) Lymphocytes (%) (Auto) 7 % (24-48) Monocytes (%) (Auto) 9 % (0-9) Eosinophils (%) (Auto) 1 % (0-3) Basophils (%) (Auto) 1 % (0-3) Neutrophils # (Auto) 5.9 x10^3/uL (1.8-7.7) Lymphocytes # (Auto) 0.5 x10^3/uL (1.0-4.8) Monocytes # (Auto) 0.6 x10^3/uL (0.0-1.1) Eosinophils # (Auto) 0.0 x10^3/uL (0.0-0.7) Basophils # (Auto) 0.1 x10^3/uL (0.0-0.2) Sodium Level 133 mmol/L (136-145) Potassium Level 3.9 mmol/L (3.5-5.1) Chloride Level 98 mmol/L (98-107) Carbon Dioxide Level 30 mmol/L (21-32) Anion Gap 5 (6-14) Blood Urea Nitrogen 12 mg/dL (8-26) Creatinine 2.4 mg/dL (0.7-1.3) Estimated GFR (Cockcroft-Gault) 28.4 Glucose Level 343 mg/dL (70-99) Calcium Level 8.0 mg/dL (8.5-10.1) Glucose (Fingerstick) 336 mg/dL (70-99) Laboratory Tests Test 10/19/19 11:29 10/19/19 11:56 10/19/19 12:41 10/19/19 16:02 Glucose (Fingerstick) 90 mg/dL (70-99) 93 mg/dL (70-99) 108 mg/dL (70-99) 57 mg/dL (70-99) Test 10/19/19 16:58 10/19/19 23:01 10/20/19 06:00 10/20/19 10:02 Glucose (Fingerstick) 92 mg/dL (70-99) 164 mg/dL (70-99) 336 mg/dL (70-99) White Blood Count 7.1 x10^3/uL (4.0-11.0) Red Blood Count 2.26 x10^6/uL (4.30-5.70) Hemoglobin 6.8 g/dL (13.0-17.5) Hematocrit 21.5 % (39.0-53.0) Mean Corpuscular Volume 95 fL (79-100) Mean Corpuscular Hemoglobin 30 pg (25-35) Mean Corpuscular Hemoglobin Concent 32 g/dL (31-37) Red Cell Distribution Width 16.3 % (11.5-14.5) Platelet Count 237 x10^3/uL (140-400) Neutrophils (%) (Auto) 83 % (31-73) Lymphocytes (%) (Auto) 7 % (24-48) Monocytes (%) (Auto) 9 % (0-9) Eosinophils (%) (Auto) 1 % (0-3) Basophils (%) (Auto) 1 % (0-3) Neutrophils # (Auto) 5.9 x10^3/uL (1.8-7.7) Lymphocytes # (Auto) 0.5 x10^3/uL (1.0-4.8) Monocytes # (Auto) 0.6 x10^3/uL (0.0-1.1) Eosinophils # (Auto) 0.0 x10^3/uL (0.0-0.7) Basophils # (Auto) 0.1 x10^3/uL (0.0-0.2) Sodium Level 133 mmol/L (136-145) Potassium Level 3.9 mmol/L (3.5-5.1) Chloride Level 98 mmol/L (98-107) Carbon Dioxide Level 30 mmol/L (21-32) Anion Gap 5 (6-14) Blood Urea Nitrogen 12 mg/dL (8-26) Creatinine 2.4 mg/dL (0.7-1.3) Estimated GFR (Cockcroft-Gault) 28.4 Glucose Level 343 mg/dL (70-99) Calcium Level 8.0 mg/dL (8.5-10.1) Microbiology 10/12/19 Blood Culture - Final, Complete NO GROWTH AFTER 5 DAYS 10/08/19 Aerobic Culture - Final, Complete 10/08/19 Aerobic Culture Result 1 (HEATHER) - Final, Complete 10/08/19 Gram Stain - Final, Complete 10/08/19 Gram Stain Result 1 (HEATHER) - Final, Complete 10/08/19 Gram Stain Result 2 (HEATHER) - Final, Complete Medications Current Medications Ondansetron HCl (Zofran) 4 mg PRN Q4HRS PRN IV NAUSEA/VOMITING; Start 10/08/19 at 16:30 Acetaminophen (Tylenol) 650 mg PRN Q4HRS PRN PO TEMP OVER 100.4F OR MILD PAIN Last administered on 10/19/19at 17:56; Start 10/08/19 at 16:30 Docusate Sodium (Colace) 100 mg PRN BID PRN PO CONSTIPATION; Start 10/08/19 at 16:30 Insulin Human Lispro (HumaLOG) 0-7 UNITS TIDACHC SQ Last administered on 10/16/19at 10:07; Start 10/08/19 at 21:00; Stop 10/17/19 at 08:52; Status DC Dextrose (Dextrose 50%-Water Syringe) 12.5 gm PRN Q15MIN PRN IV SEE COMMENTS Last administered on 10/19/19at 16:15; Start 10/08/19 at 17:00 Dextrose (Iv Dextrose 5%) 250 ml PRN Q15MIN PRN IV SEE COMMENTS; Start 10/08/19 at 17:00 Aspirin (Ecotrin) 81 mg [id number] PO Last administered on 10/18/19at 08:12; Start 10/09/19 at 08:00; Stop 10/18/19 at 18:13; Status DC Atorvastatin Calcium (Lipitor) 40 mg HS PO Last administered on 10/19/19at 22:48; Start 10/08/19 at 21:00 Furosemide (Lasix) 80 mg BID94 PO Last administered on 10/10/19at 16:15; Start 10/08/19 at 18:00; Stop 10/15/19 at 13:33; Status DC Lactobacillus Rhamnosus (Culturelle) 1 cap BID PO Last administered on 10/20/19at 10:03; Start 10/08/19 at 21:00 Montelukast Sodium (Singulair) 10 mg HS PRN PO ALLERGIES; Start 10/08/19 at 17:00 Ondansetron HCl (Zofran Odt) 4 mg PRN Q6HRS PRN PO NAUSEA; Start 10/08/19 at 17:00; Stop 10/15/19 at 13:33; Status DC Tamsulosin HCl (Flomax) 0.4 mg HS PO Last administered on 10/19/19at 22:48; Start 10/08/19 at 21:00 Tramadol HCl (Ultram) 50 mg PRN Q6HRS PRN PO MODERATE PAIN; Start 10/08/19 at 17:00; Stop 10/12/19 at 11:56; Status DC Insulin Glargine (Lantus Syringe) 10 unit QHS SQ Last administered on 10/14/19at 22:14; Start 10/08/19 at 21:00; Stop 10/17/19 at 08:52; Status DC Losartan Potassium (Cozaar) 100 mg HS PO Last administered on 10/19/19at 22:51; Start 10/08/19 at 21:00 Pantoprazole Sodium (Protonix) 40 mg DAILYAC PO Last administered on 10/10/19at 10:10; Start 10/09/19 at 07:30; Stop 10/12/19 at 09:54; Status DC Sodium Chloride 500 ml @ 500 mls/hr 1X ONCE IV Last administered on 10/08/19at 20:00; Start 10/08/19 at 20:00; Stop 10/08/19 at 20:59; Status DC Calcium Acetate (Phoslo) 1,334 mg TIDWMEALS PO Last administered on 10/20/19at 10:02; Start 10/08/19 at 20:00 Vitamin A/Vitamin D (Vitamin A & D Ointment) 1 lucero PRN Q1HR PRN TP SKIN PROTECTION; Start 10/09/19 at 09:00 Doxycycline Hyclate (Vibra-Tab) 100 mg BID PO Last administered on 10/10/19at 10:08; Start 10/09/19 at 11:00; Stop 10/10/19 at 10:21; Status DC Fluconazole (Diflucan) 100 mg DAILY PO Last administered on 10/10/19at 10:08; Start 10/09/19 at 10:30; Stop 10/12/19 at 11:57; Status DC Amoxicillin/ Clavulanate Potassium (Augmentin 500/ 125mg) 1 tab DAILY PO Last administered on 10/10/19at 10:08; Start 10/09/19 at 10:30; Stop 10/10/19 at 10:21; Status DC Vancomycin HCl (Vanco Per Pharmacy) 1 each PRN DAILY PRN MC SEE COMMENTS Last administered on 10/11/19at 15:08; Start 10/10/19 at 10:30; Stop 10/12/19 at 11:56; Status DC Piperacillin Sod/ Tazobactam Sod 2.25 gm/Sodium Chloride 50 ml @ 100 mls/hr Q8HRS IV Last administered on 10/11/19at 22:06; Start 10/10/19 at 11:00; Stop 10/12/19 at 11:56; Status DC Vancomycin HCl 1.5 gm/Sodium Chloride 500 ml @ 250 mls/hr 1X ONCE IV Last administered on 10/10/19at 16:14; Start 10/10/19 at 11:00; Stop 10/10/19 at 12:59; Status DC Vancomycin HCl (Vancomycin Random Level) 1 each 1X ONCE MC Last administered on 10/12/19at 05:00; Start 10/12/19 at 05:00; Stop 10/12/19 at 05:01; Status DC Acetaminophen (Tylenol Supp) 650 mg PRN Q6HRS PRN WA MILD PAIN / TEMP Last administered on 10/17/19at 23:24; Start 10/12/19 at 06:00 Pantoprazole Sodium (PROTONIX VIAL for IV PUSH) 40 mg DAILYAC IVP Last administered on 10/18/19at 08:12; Start 10/12/19 at 10:00; Stop 10/18/19 at 09:53; Status DC Meropenem 500 mg/ Sodium Chloride 50 ml @ 100 mls/hr Q8HRS IV Last admi nistered on 10/13/19at 06:00; Start 10/12/19 at 13:00; Stop 10/13/19 at 13:10; Status DC Micafungin Sodium 100 mg/Dextrose 100 ml @ 100 mls/hr Q24H IV Last administered on 10/16/19at 18:20; Start 10/12/19 at 12:00; Stop 10/17/19 at 11:38; Status DC Linezolid/Dextrose 300 ml @ 300 mls/hr Q12HR IV Last administered on 10/16/19at 08:46; Start 10/12/19 at 12:00; Stop 10/16/19 at 10:46; Status DC Amino Acids/ Electrolytes/ Dextrose 1,000 ml @ 80 mls/hr [id number] IV Last administered on 10/16/19at 22:27; Start 10/12/19 at 16:30; Stop 10/17/19 at 08:52; Status DC Heparin Sodium (Porcine) (Heparin Sodium) 5,000 unit Q8HRS SQ Last administered on 10/15/19at 06:26; Start 10/13/19 at 06:00; Stop 10/15/19 at 13:03; Status DC Insulin Human Lispro (HumaLOG) 21 units 1X ONCE SQ Last administered on 10/13/19at 09:26; Start 10/13/19 at 09:30; Stop 10/13/19 at 09:31; Status DC Insulin Human Lispro (HumaLOG) 4 units Q6HRS SQ Last administered on 10/17/19at 06:39; Start 10/13/19 at 12:00; Stop 10/17/19 at 08:52; Status DC Meropenem 500 mg/ Sodium Chloride 50 ml @ 100 mls/hr Q12HR IV Last administered on 10/17/19at 09:00; Start 10/13/19 at 21:00; Stop 10/17/19 at 11:38; Status DC Barium Sulfate (Varibar Thin Liquid Apple) 148 gm 1X ONCE PO ; Start 10/14/19 at 11:30; Stop 10/14/19 at 11:31; Status DC Barium Sulfate (Varibar Thin Liquid Apple) 148 gm 1X ONCE PO Last administered on 10/15/19at 11:10; Start 10/15/19 at 10:00; Stop 10/15/19 at 10:02; Status DC Darbepoetin Zaid (ARANESP for DIALYSIS PTS) 60 mcg WEEKLYHS SQ Last administered on 10/15/19at 23:41; Start 10/15/19 at 21:00 Lidocaine/ Epinephrine (LIDOCAINE 1%-EPI 1:100,000 Multi-Dose) 20 ml STK-MED ONCE .ROUTE ; Start 10/15/19 at 13:16; Stop 10/15/19 at 13:17; Status DC Furosemide (Lasix) 80 mg BID92 IVP Last administered on 10/18/19at 08:12; Start 10/15/19 at 14:00; Stop 10/19/19 at 09:17; Status DC Labetalol HCl (Normodyne Iv Push) 10 mg PRN Q2HR PRN IVP HYPERTENSION; Start 10/15/19 at 13:45 Ondansetron HCl (Zofran) 4 mg PRN Q6HRS PRN IV NAUSEA/VOMITING; Start 10/16/19 at 07:00; Stop 10/17/19 at 06:59; Status DC Fentanyl Citrate (Fentanyl 2ml Vial) 25 mcg PRN Q5MIN PRN IV MILD PAIN 1-3; Start 10/16/19 at 07:00; Stop 10/17/19 at 06:59; Status DC Fentanyl Citrate (Fentanyl 2ml Vial) 50 mcg PRN Q5MIN PRN IV MODERATE TO SEVERE PAIN; Start 10/16/19 at 07:00; Stop 10/17/19 at 06:59; Status DC Morphine Sulfate (Morphine Sulfate) 1 mg PRN Q10MIN PRN IV SEVERE PAIN 7-10; Start 10/16/19 at 07:00; Stop 10/17/19 at 06:59; Status DC Ringer's Solution 1,000 ml @ 30 mls/hr Q24H IV ; Start 10/16/19 at 07:00; Stop 10/16/19 at 18:59; Status DC Lidocaine HCl (Xylocaine-Mpf 1% 2ml Vial) 2 ml PRN 1X PRN ID PRIOR TO IV START; Start 10/16/19 at 07:00; Stop 10/17/19 at 06:59; Status DC Hydromorphone HCl (Dilaudid) 0.5 mg PRN Q10MIN PRN IV SEV PAIN, Second choice; Start 10/16/19 at 07:00; Stop 10/17/19 at 06:59; Status DC Prochlorperazine Edisylate (Compazine) 5 mg PACU PRN PRN IV NAUSEA, MRX1; Start 10/16/19 at 07:00; Stop 10/17/19 at 06:59; Status DC Lidocaine/ Epinephrine (LIDOCAINE 1%-EPI 1:100,000 Multi-Dose) 19 ml 1X ONCE INJ Last administered on 10/15/19at 14:54; Start 10/15/19 at 15:00; Stop 10/15/19 at 15:01; Status DC Sodium Chloride 1,000 ml @ 1,000 mls/hr Q1H PRN IV hypotension; Start 10/15/19 at 16:04; Stop 10/15/19 at 22:03; Status DC Acetaminophen (Tylenol) 500 mg 1X PRN PRN PO MILD PAIN / TEMP; Start 10/15/19 at 16:15; Stop 10/16/19 at 16:14; Status DC Diphenhydramine HCl (Benadryl) 25 mg 1X PRN PRN IV ITCHING; Start 10/15/19 at 16:15; Stop 10/16/19 at 16:14; Status DC Diphenhydramine HCl (Benadryl) 25 mg 1X PRN PRN IV ITCHING; Start 10/15/19 at 16:15; Stop 10/16/19 at 16:14; Status DC Sodium Chloride 1,000 ml @ 400 mls/hr Q2H30M PRN IV PATENCY; Start 10/15/19 at 16:04; Stop 10/16/19 at 04:03; Status DC Info (PHARMACY MONITORING -- do not chart) 1 each PRN DAILY PRN MC SEE COMMENTS; Start 10/15/19 at 16:15; Status Cancel Sodium Chloride 1,000 ml @ 1,000 mls/hr Q1H PRN IV hypotension; Start 10/16/19 at 10:40; Stop 10/16/19 at 16:39; Status DC Albumin Human 200 ml @ 200 mls/hr 1X PRN PRN IV Hypotension; Start 10/16/19 at 10:45; Stop 10/16/19 at 16:44; Status DC Sodium Chloride 1,000 ml @ 400 mls/hr Q2H30M PRN IV PATENCY; Start 10/16/19 at 10:40; Stop 10/16/19 at 22:39; Status DC Info (PHARMACY MONITORING -- do not chart) 1 each PRN DAILY PRN MC SEE COMMENTS; Start 10/16/19 at 10:45; Status UNV Info (PHARMACY MONITORING -- do not chart) 1 each PRN DAILY PRN MC SEE COMMENTS; Start 10/16/19 at 10:45; Status Cancel Sodium Chloride 1,000 ml @ 30 mls/hr Q24H IV Last administered on 10/17/19at 08:44; Start 10/16/19 at 14:45 Propofol 20 ml @ As Directed STK-MED ONCE IV ; Start 10/16/19 at 15:34; Stop 10/16/19 at 15:34; Status DC Dexamethasone Sodium Phosphate (Decadron) 4 mg STK-MED ONCE .ROUTE ; Start 10/16/19 at 15:34; Stop 10/16/19 at 15:34; Status DC Lidocaine HCl (Lidocaine Pf 2% Vial) 5 ml STK-MED ONCE .ROUTE ; Start 10/16/19 at 15:34; Stop 10/16/19 at 15:34; Status DC Ondansetron HCl (Zofran) 4 mg STK-MED ONCE .ROUTE ; Start 10/16/19 at 15:34; Stop 10/16/19 at 15:35; Status DC Rocuronium Aurora (Zemuron) 50 mg STK-MED ONCE .ROUTE ; Start 10/16/19 at 15:34; Stop 10/16/19 at 15:35; Status DC Bupivacaine HCl/ Epinephrine Bitart (Sensorcain-Epi 0.5%-1:[id number] Mpf) 30 ml STK-MED ONCE .ROUTE Last administered on 10/16/19at 16:15; Start 10/16/19 at 15:44; Stop 10/16/19 at 15:44; Status DC Ketamine HCl (Ketamine) 50 mg STK-MED ONCE .ROUTE ; Start 10/16/19 at 16:03; Stop 10/16/19 at 16:03; Status DC Midazolam HCl (Versed) 2 mg STK-MED ONCE .ROUTE ; Start 10/16/19 at 16:03; Stop 10/16/19 at 16:03; Status DC Sodium Chloride 1,000 ml @ 0 mls/hr Q0M IV ; Start 10/17/19 at 08:45; Status Cancel Propofol 20 ml @ As Directed STK-MED ONCE IV ; Start 10/17/19 at 08:49; Stop 10/17/19 at 08:49; Status DC Lidocaine HCl (Lidocaine Pf 2% Vial) 5 ml STK-MED ONCE .ROUTE ; Start 10/17/19 at 08:49; Stop 10/17/19 at 08:49; Status DC Insulin Glargine (Lantus Syringe) 25 unit QHS SQ Last administered on 10/17/19at 21:27; Start 10/17/19 at 09:00; Stop 10/18/19 at 08:51; Status DC Insulin Human Lispro (HumaLOG) 6 units Q6HRS SQ Last administered on 10/17/19at 12:22; Start 10/17/19 at 09:00; Stop 10/18/19 at 08:51; Status DC Insulin Human Lispro (HumaLOG) 0-9 UNITS TIDWMEALS SQ Last administered on 10/20/19at 10:38; Start 10/17/19 at 12:00 Dextrose (Dextrose 50%-Water Syringe) 12.5 gm PRN Q15MIN PRN IV SEE COMMENTS; Start 10/17/19 at 09:00; Status Cancel Dextrose (Iv Dextrose 5%) 250 ml PRN Q15MIN PRN IV SEE COMMENTS; Start 10/17/19 at 09:00; Status Cancel Sodium Chloride 1,000 ml @ 1,000 mls/hr Q1H PRN IV hypotension; Start 10/17/19 at 12:42; Stop 10/17/19 at 18:41; Status DC Sodium Chloride 1,000 ml @ 400 mls/hr Q2H30M PRN IV PATENCY; Start 10/17/19 at 12:42; Stop 10/18/19 at 00:41; Status DC Info (PHARMACY MONITORING -- do not chart) 1 each PRN DAILY PRN MC SEE COMMENTS; Start 10/17/19 at 12:45; Status UNV Info (PHARMACY MONITORING -- do not chart) 1 each PRN DAILY PRN MC SEE COMMENTS; Start 10/17/19 at 12:45; Status UNV Insulin Glargine (Lantus Syringe) 18 unit QHS SQ ; Start 10/18/19 at 21:00; Stop 10/18/19 at 11:42; Status DC Lansoprazole (Prevacid) 30 mg DAILY FT Last administered on 10/20/19at 10:08; Start 10/19/19 at 09:00 Dextrose/Sodium Chloride 1,000 ml @ 75 mls/hr 1X ONCE IV Last administered on 10/18/19at 12:15; Start 10/18/19 at 11:45; Stop 10/19/19 at 01:04; Status DC Aspirin (Ecotrin) 325 mg DAILYWBKFT PO Last administered on 10/20/19at 10:02; Start 10/19/19 at 08:00 Dextrose/Sodium Chloride 1,000 ml @ 75 mls/hr 1X ONCE IV Last administered on 10/19/19at 04:00; Start 10/19/19 at 04:00; Stop 10/19/19 at 17:19; Status DC Iodixanol (Visipaque 320) 100 ml STK-MED ONCE .ROUTE ; Start 10/19/19 at 08:08; Stop 10/19/19 at 08:09; Status DC Lidocaine HCl (Buffered Lidocaine 1%) 3 ml STK-MED ONCE .ROUTE ; Start 10/19/19 at 08:09; Stop 10/19/19 at 08:09; Status DC Heparin Sodium/ Sodium Chloride 1,500 ml @ As Directed STK-MED ONCE .ROUTE ; Start 10/19/19 at 08:09; Stop 10/19/19 at 08:09; Status DC Iodixanol (Visipaque 320) 100 ml STK-MED ONCE .ROUTE ; Start 10/19/19 at 08:09; Stop 10/19/19 at 08:09; Status DC Sodium Chloride 1,000 ml @ 1,000 mls/hr Q1H PRN IV hypotension; Start 10/19/19 at 08:24; Stop 10/19/19 at 14:23; Status DC Sodium Chloride 1,000 ml @ 400 mls/hr Q2H30M PRN IV PATENCY; Start 10/19/19 at 08:24; Stop 10/19/19 at 20:23; Status DC Info (PHARMACY MONITORING -- do not chart) 1 each PRN DAILY PRN MC SEE C OMMENTS; Start 10/19/19 at 08:30; Status Cancel Info (PHARMACY MONITORING -- do not chart) 1 each PRN DAILY PRN MC SEE COMMENT S; Start 10/19/19 at 08:30 Midazolam HCl (Versed) 5 mg STK-MED ONCE .ROUTE ; Start 10/19/19 at 08:39; Stop 10/19/19 at 08:40; Status DC Fentanyl Citrate (Fentanyl 5ml Vial) 250 mcg STK-MED ONCE .ROUTE ; Start 10/19/19 at 08:39; Stop 10/19/19 at 08:40; Status DC Dextrose (Dextrose 50%-Water Syringe) 25 gm STK-MED ONCE IV ; Start 10/19/19 at 08:42; Stop 10/19/19 at 08:43; Status DC Heparin Sodium (Porcine) (Heparin Sodium) 10,000 unit STK-MED ONCE .ROUTE ; Start 10/19/19 at 09:11; Stop 10/19/19 at 09:12; Status DC Dextrose/Sodium Chloride 1,000 ml @ 75 mls/hr [id number] IV Last administered on 10/19/19at 22:50; Start 10/19/19 at 09:30 Furosemide (Lasix) 40 mg [id number] IVP Last administered on 10/20/19at 10:03; Start 10/19/19 at 09:30 Heparin Sodium/ Sodium Chloride (HEPARIN for ARTERIAL LINE FLUSH) 1,000 unit 1X ONCE IART Last administered on 10/19/19at 09:30; Start 10/19/19 at 09:30; Stop 10/19/19 at 09:31; Status DC Heparin Sodium/ Sodium Chloride (HEPARIN for ARTERIAL LINE FLUSH) 1,000 unit 1X ONCE IART Last administered on 10/19/19at 09:30; Start 10/19/19 at 09:30; Stop 10/19/19 at 09:31; Status DC Lidocaine HCl (Buffered Lidocaine 1%) 3 ml 1X ONCE IJ Last administered on 10/19/19at 09:30; Start 10/19/19 at 09:30; Stop 10/19/19 at 09:31; Status DC Midazolam HCl (Versed) 5 mg 1X ONCE IV Last administered on 10/19/19at 09:30; Start 10/19/19 at 09:30; Stop 10/19/19 at 09:31; Status DC Fentanyl Citrate (Fentanyl 5ml Vial) 250 mcg 1X ONCE IV Last administered on 10/19/19at 09:30; Start 10/19/19 at 09:30; Stop 10/19/19 at 09:31; Status DC Iodixanol (Visipaque 320) 100 ml 1X ONCE IART Last administered on 10/19/19at 09:30; Start 10/19/19 at 09:30; Stop 10/19/19 at 09:31; Status DC Midazolam HCl (Versed) 2 mg STK-MED ONCE .ROUTE ; Start 10/19/19 at 09:57; Stop 10/19/19 at 09:57; Status DC Ketamine HCl (Ketamine) 50 mg STK-MED ONCE .ROUTE ; Start 10/19/19 at 09:57; Stop 10/19/19 at 09:57; Status DC Propofol 20 ml @ As Directed STK-MED ONCE IV ; Start 10/19/19 at 09:57; Stop 10/19/19 at 09:57; Status DC Iodixanol (Visipaque 320) 100 ml STK-MED ONCE .ROUTE ; Start 10/19/19 at 10:27; Stop 10/19/19 at 10:27; Status DC Heparin Sodium (Porcine) (Heparin Sodium) 5,000 unit 1X ONCE IV Last administered on 10/19/19at 10:50; Start 10/19/19 at 11:00; Stop 10/19/19 at 11:01; Status DC Fentanyl Citrate (Fentanyl 2ml Vial) 100 mcg STK-MED ONCE .ROUTE ; Start 10/19/19 at 11:37; Stop 10/19/19 at 11:37; Status DC Fentanyl Citrate (Fentanyl 2ml Vial) 100 mcg 1X ONCE IVP Last administered on 10/19/19at 11:42; Start 10/19/19 at 11:45; Stop 10/19/19 at 11:46; Status DC Propofol (Diprivan) 200 mg STK-MED ONCE IV ; Start 10/19/19 at 10:00; Stop 10/19/19 at 13:05; Status DC Metoprolol Tartrate (Lopressor) 25 mg BID PO Last administered on 10/20/19at 10:03; Start 10/19/19 at 21:00 Digoxin (Lanoxin) 250 mcg 1X ONCE IV ; Start 10/19/19 at 14:15; Stop 10/19/19 at 14:16; Status Cancel Active Scripts Active Humalog (Insulin Lispro) 100 Unit/1 Ml Insuln.pen 6 Units SQ Q6HRS 30 Days Lantus (Insulin Glargine,Hum.rec.anlog) 100 Unit/1 Ml Vial 25 Unit SQ QHS 30 Days Tramadol Hcl 50 Mg Tablet 50 Mg PO PRN Q6HRS PRN 3 Days Culturelle (Lactobacillus Rhamnosus Gg) 1 Each Cap.sprink 1 Cap PO BID 7 Days Aspirin Ec (Aspirin) 81 Mg Tablet. 81 Mg PO DAILYWBKFT Reported Glyburide 5 Mg Tablet 5 Mg PO DAILY Omeprazole 20 Mg Tablet. 20 Mg PO DAILY Calcitriol 0.5 Mcg Capsule 0.5 Mcg PO DAILY Furosemide 80 Mg Tablet 80 Mg PO BID Tamsulosin Hcl 0.4 Mg Cap.er.24h 1 Cap PO HS Montelukast Sodium Tablet (Montelukast Sodium) 10 Mg Tablet 1 Tab PO HS PRN Ondansetron Odt (Ondansetron) 4 Mg Tab.rapdis 1 Tab PO PRN Q6-8HRS PRN Cozaar (Losartan Potassium) 100 Mg Tablet 100 Mg PO HS Carvedilol 25 Mg Tablet 25 Mg PO BIDWMEALS Atorvastatin Calcium 40 Mg Tablet 40 Mg PO HS Vitals/I & O Vital Sign - Last 24 Hours 10/19/19 10/19/19 10/19/19 10/19/19 11:14 11:14 11:29 11:42 Temp 97.3 97.3 97.3 97.3 Pulse 92 96 Resp 15 15 15 B/P (MAP) 102/57 104/47 Pulse Ox 98 95 98 O2 Delivery Nasal Cannula Nasal Cannula Nasal Cannula Nasal Cannula O2 Flow Rate 2 6.0 3 3.0 10/19/19 10/19/19 10/19/19 10/19/19 11:44 16:00 19:53 20:00 Temp 97.3 97.2 97.5 97.3 97.2 97.5 Pulse 96 63 92 Resp 20 16 B/P (MAP) 104/56 117/62 (80) 111/58 (75) Pulse Ox 98 92 97 O2 Delivery Nasal Cannula Nasal Cannula Room Air Nasal Cannula O2 Flow Rate 3.0 3.0 3.0 10/19/19 10/19/19 10/19/19 10/20/19 22:49 22:51 23:07 03:15 Temp 98.2 98.4 98.2 98.4 Pulse 92 91 91 100 Resp 16 16 B/P (MAP) 111/58 168/48 168/48 (88) 161/51 (87) Pulse Ox 94 97 O2 Delivery Room Air Room Air 10/20/19 10/20/19 07:40 10:03 Temp 98.2 98.2 Pulse 75 75 Resp 18 B/P (MAP) 136/42 (73) 136/42 Pulse Ox 97 O2 Delivery Room Air Intake and Output 10/19/19 10/19/19 10/20/19 15:00 23:00 07:00 Intake Total 0 ml 2213 ml 2038 ml Output Total 0 ml Balance 0 ml 2213 ml 2038 ml Nutrition Consultation Dietary Evaluation: Recommendations by RD: Dietary education by RD Comments: REC continue TF as ordered REC mvi and vit c per wound protocal due to multiple skin breakdown areas - See wound assessment Expected Outcomes/Goals: to meet >75% est nutr needs via TF Interpretation of weight loss: >5% in 1 month Malnutrition Findings: Food and Nutrition Intake (Sev: <50% est energy req 5days Body Fat Depletion (Non Severe: Mild Depletion Weight Status: Underweight Hemodynamically unstable?: No Is patient in severe pain?: No Is NPO status required?: Yes ILAN GARRISON MD Oct 20, 2019 11:13
[2019-10-20] MEDS: ACETAMINOPHEN 325 MG TABLET. PO PRN ×2 (12:37→17:44)
[2019-10-20] MEDS: IV DEXTROSE 5 %-0.45 % NACL 1,000 ML IV SCH (13:00)
[2019-10-20] MEDS: IV NORMAL SALINE 1000ML BAG 1,000 ML IV SCH (14:45)
[2019-10-20] MEDS: LOSARTAN POTASSIUM 50 MG TABLET. PO SCH (22:29)
[2019-10-20] MEDS: ATORVASTATIN CALCIUM 40 MG TABLET. PO SCH (22:29)
[2019-10-20] MEDS: TAMSULOSIN 0.4 MG CAP.ER.24H. PO SCH (22:30)
[2019-10-21 03:32] VITALS: BP 134/39
[2019-10-21 07:30] VITALS: BP 139/49
[2019-10-21] MEDS: FUROSEMIDE 40 MG/4 ML VIAL. IVP SCH ×2 (09:34→14:55)
[2019-10-21] MEDS: CALCIUM ACETATE 667 MG CAPSULE PO SCH ×3 (09:35→18:39)
[2019-10-21] MEDS: ASPIRIN ENTERIC COATED 81 MG TABLET.DR. PO SCH (09:35)
[2019-10-21] MEDS: LANSOPRAZOLE 30 MG TAB.RAP.DR FT SCH (09:35)
[2019-10-21] MEDS: LACTOBACILLUS RHAMNOSUS GG 1 CAPSULE. PO SCH ×2 (09:35→22:21)
[2019-10-21] MEDS: METOPROLOL TART IMMED RELEASE 25 MG TABLET. PO SCH ×2 (09:36→22:22)
[2019-10-21] MEDS: INSULIN LISPRO 300 UNITS/3 ML VIAL. SQ SCH ×3 (10:11→18:00)
[2019-10-21 10:29] LABS: BASO # 0.1 x10^3/uL (0.0-0.2); BASO % 1 % (0-3); EOS % 0 % (0-3); HEMATOCRIT 24.9 % (39.0-53.0); HEMOGLOBIN 8.1 g/dL (13.0-17.5); LYMPH # 0.6 x10^3/uL (1.0-4.8); LYMPH % 7 % (24-48); MEAN CORPUSCULAR HEMOGLOBIN 30 pg (25-35); MEAN CORPUSCULAR HGB CONC 33 g/dL (31-37); MEAN CORPUSCULAR VOLUME 92 fL (79-100); MONO # 0.6 x10^3/uL (0.0-1.1); MONO % 6 % (0-9); NEUT # 7.7 x10^3/uL (1.8-7.7); NEUT % 86 % (31-73); PLATELET COUNT 244 x10^3/uL (140-400); RED BLOOD COUNT 2.71 x10^6/uL (4.30-5.70); RED CELL DISTRIBUTION WIDTH 17.5 % (11.5-14.5); WHITE BLOOD COUNT 8.9 x10^3/uL (4.0-11.0)
[2019-10-21 10:34] LABS: CALCIUM 8.4 mg/dL (8.5-10.1); CREATININE 3.5 mg/dL (0.7-1.3); GFR 18.3; POTASSIUM 4.1 mmol/L (3.5-5.1)
--- NOTE | 2019-10-21 10:55 | PDOC ---
PROGRESS NOTES Chief Complaint Chief Complaint impression PAD, acute stenosis BILATERAL FEM ARTERIES Moderate stenosis proximal left SFA. Moderate stenosis distal SFA. High-grade stenosis left popliteal artery. Occlusion of the posterior tibial artery. High-grade stenosis at the origin of the anterior tibial artery, which appears to be the dominant blood supply to the foot RT necrotic big toe/gangrene RT BOG tOE gangrene HYPOGLYCEMIA - 10/17 Acute encephalopathy - metabolic 2/2 DKA and toxic 2/2 likely infectious etiology. Still somewhat confused DKA, type 2 - off insulin GTT. will repeat BMP, Elevated alkaline phosphatase level - monitor, Lactic acidosis - likely due to diabetes mellitus. Will trend Penile cellulitis - present on admission, likely from failure to f/u outpatient - Doxy and augmentin with fluconazole previously./// culture and consult ID ESRD on HD transitioning to PD prior to his admission - tolerating well. Will consult nephrology Sepsis - from penile cellulitis as etiology, f/u cultures. Previously with coag negative staph on PD culture. F/u repeat culture HTN - cont meds DM type 2 insulin requiring - now hyperglycemic, previously with hypoglycemic event - hypoglycemia protocol. Cont insulin basal bolus plus once out of DKA Severe protein calorie malnutrition - unclear etiology, albumin 1.2, definitely has inconsistent PO intake. 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 U/S shows no abscess - painless ulcer concerning. Syphilis testing negative previously. Wound care to see Gait instability - needs further PT Anemia - of chronic renal disease Hyperphosphatemia - likely related to phos binder compliance difficulties. add phos binder, post angio and multilevel angioplasty 10/19 28 min pt exam, chart review, > 50% of time spent with exam, chart review, pt care coordination History of Present Illness History of Present Illness HE is out having arteriogram and revascularization plans for limb salvage by vasc sx Off abx - dw ID SLated for lTAC Wound care also on board, discovered the gangrenous big toe HYpoglycemia persisted yesterday despite TF via PEG at 30cc (goal 40cc/hr) - new PEG NEeded 2 Litres of dextrose iVF PLAn: POst op labs POst op care Amputtaion vs stenting Dectrose iVF prn/gtt for hYPOGLYCEMIA - off insulin now (was on SQ pushes) LTAC on dc NUtrition consulted, skin and bones FUll code Brother is his support family Vitals Vitals Vital Signs Date Time Temp Pulse Resp B/P (MAP) Pulse Ox O2 Delivery O2 Flow Rate FiO2 10/21/19 09:36 99 139/49 10/21/19 07:30 97.5 20 98 Nasal Cannula 3.0 97.5 Physical Exam Physical Exam GENERAL: Alert today. in bed - NAD - coop HEENT: Normocephalic, atraumatic, anicteric. No thrush. NECK: No tenderness. Supple, no JVD, LUNGS: Clear. HEART: S1, S2. ABDOMEN: Soft. PD catheter in place, nontender, nondistended. GENITOURINARY: Penile swelling, min redness with eschar like lesion,, No purulence noted - No drainage today - still painful EXTREMITIES: no pedal edema/swelling/joint pain or erythema SKIN: Dry skin. No cyanosis.superficial skin erythema on back pressure changes NEUROLOGIC:Answering questions well. appropriate PSYCHIATRIC flat General: Alert, Cooperative, No acute distress Heart: Regular rate, Normal S1, Normal S2 Lungs: Clear, Other Abdomen: Normal bowel sounds, Soft, Other (lap sites c/d/i) Extremities: No clubbing, No cyanosis Skin: No rashes, No breakdown Labs LABS Laboratory Tests Test 10/20/19 12:54 10/20/19 16:18 10/20/19 21:14 10/21/19 08:13 Glucose (Fingerstick) 298 mg/dL (70-99) 123 mg/dL (70-99) 76 mg/dL (70-99) 353 mg/dL (70-99) Test 10/21/19 10:15 White Blood Count 8.9 x10^3/uL (4.0-11.0) Red Blood Count 2.71 x10^6/uL (4.30-5.70) Hemoglobin 8.1 g/dL (13.0-17.5) Hematocrit 24.9 % (39.0-53.0) Mean Corpuscular Volume 92 fL (79-100) Mean Corpuscular Hemoglobin 30 pg (25-35) Mean Corpuscular Hemoglobin Concent 33 g/dL (31-37) Red Cell Distribution Width 17.5 % (11.5-14.5) Platelet Count 244 x10^3/uL (140-400) Neutrophils (%) (Auto) 86 % (31-73) Lymphocytes (%) (Auto) 7 % (24-48) Monocytes (%) (Auto) 6 % (0-9) Eosinophils (%) (Auto) 0 % (0-3) Basophils (%) (Auto) 1 % (0-3) Neutrophils # (Auto) 7.7 x10^3/uL (1.8-7.7) Lymphocytes # (Auto) 0.6 x10^3/uL (1.0-4.8) Monocytes # (Auto) 0.6 x10^3/uL (0.0-1.1) Eosinophils # (Auto) 0.0 x10^3/uL (0.0-0.7) Basophils # (Auto) 0.1 x10^3/uL (0.0-0.2) Sodium Level 131 mmol/L (136-145) Potassium Level 4.1 mmol/L (3.5-5.1) Chloride Level 94 mmol/L (98-107) Carbon Dioxide Level 25 mmol/L (21-32) Anion Gap 12 (6-14) Blood Urea Nitrogen 25 mg/dL (8-26) Creatinine 3.5 mg/dL (0.7-1.3) Estimated GFR (Cockcroft-Gault) 18.3 Glucose Level 412 mg/dL (70-99) Calcium Level 8.4 mg/dL (8.5-10.1) Comment Review of Relevant I have reviewed the following items alex (where applicable) has been applied. Labs Laboratory Tests Test 10/19/19 11:04 10/19/19 11:29 10/19/19 11:56 10/19/19 12:41 Glucose (Fingerstick) 100 mg/dL (70-99) 90 mg/dL (70-99) 93 mg/dL (70-99) 108 mg/dL (70-99) Test 10/19/19 16:02 10/19/19 16:58 10/19/19 23:01 10/20/19 06:00 Glucose (Fingerstick) 57 mg/dL (70-99) 92 mg/dL (70-99) 164 mg/dL (70-99) White Blood Count 7.1 x10^3/uL (4.0-11.0) Red Blood Count 2.26 x10^6/uL (4.30-5.70) Hemoglobin 6.8 g/dL (13.0-17.5) Hematocrit 21.5 % (39.0-53.0) Mean Corpuscular Volume 95 fL (79-100) Mean Corpuscular Hemoglobin 30 pg (25-35) Mean Corpuscular Hemoglobin Concent 32 g/dL (31-37) Red Cell Distribution Width 16.3 % (11.5-14.5) Platelet Count 237 x10^3/uL (140-400) Neutrophils (%) (Auto) 83 % (31-73) Lymphocytes (%) (Auto) 7 % (24-48) Monocytes (%) (Auto) 9 % (0-9) Eosinophils (%) (Auto) 1 % (0-3) Basophils (%) (Auto) 1 % (0-3) Neutrophils # (Auto) 5.9 x10^3/uL (1.8-7.7) Lymphocytes # (Auto) 0.5 x10^3/uL (1.0-4.8) Monocytes # (Auto) 0.6 x10^3/uL (0.0-1.1) Eosinophils # (Auto) 0.0 x10^3/uL (0.0-0.7) Basophils # (Auto) 0.1 x10^3/uL (0.0-0.2) Sodium Level 133 mmol/L (136-145) Potassium Level 3.9 mmol/L (3.5-5.1) Chloride Level 98 mmol/L (98-107) Carbon Dioxide Level 30 mmol/L (21-32) Anion Gap 5 (6-14) Blood Urea Nitrogen 12 mg/dL (8-26) Creatinine 2.4 mg/dL (0.7-1.3) Estimated GFR (Cockcroft-Gault) 28.4 Glucose Level 343 mg/dL (70-99) Calcium Level 8.0 mg/dL (8.5-10.1) Test 10/20/19 10:02 10/20/19 12:54 10/20/19 16:18 10/20/19 21:14 Glucose (Fingerstick) 336 mg/dL (70-99) 298 mg/dL (70-99) 123 mg/dL (70-99) 76 mg/dL (70-99) Test 10/21/19 08:13 10/21/19 10:15 Glucose (Fingerstick) 353 mg/dL (70-99) White Blood Count 8.9 x10^3/uL (4.0-11.0) Red Blood Count 2.71 x10^6/uL (4.30-5.70) Hemoglobin 8.1 g/dL (13.0-17.5) Hematocrit 24.9 % (39.0-53.0) Mean Corpuscular Volume 92 fL (79-100) Mean Corpuscular Hemoglobin 30 pg (25-35) Mean Corpuscular Hemoglobin Concent 33 g/dL (31-37) Red Cell Distribution Width 17.5 % (11.5-14.5) Platelet Count 244 x10^3/uL (140-400) Neutrophils (%) (Auto) 86 % (31-73) Lymphocytes (%) (Auto) 7 % (24-48) Monocytes (%) (Auto) 6 % (0-9) Eosinophils (%) (Auto) 0 % (0-3) Basophils (%) (Auto) 1 % (0-3) Neutrophils # (Auto) 7.7 x10^3/uL (1.8-7.7) Lymphocytes # (Auto) 0.6 x10^3/uL (1.0-4.8) Monocytes # (Auto) 0.6 x10^3/uL (0.0-1.1) Eosinophils # (Auto) 0.0 x10^3/uL (0.0-0.7) Basophils # (Auto) 0.1 x10^3/uL (0.0-0.2) Sodium Level 131 mmol/L (136-145) Potassium Level 4.1 mmol/L (3.5-5.1) Chloride Level 94 mmol/L (98-107) Carbon Dioxide Level 25 mmol/L (21-32) Anion Gap 12 (6-14) Blood Urea Nitrogen 25 mg/dL (8-26) Creatinine 3.5 mg/dL (0.7-1.3) Estimated GFR (Cockcroft-Gault) 18.3 Glucose Level 412 mg/dL (70-99) Calcium Level 8.4 mg/dL (8.5-10.1) Laboratory Tests Test 10/20/19 12:54 10/20/19 16:18 10/20/19 21:14 10/21/19 08:13 Glucose (Fingerstick) 298 mg/dL (70-99) 123 mg/dL (70-99) 76 mg/dL (70-99) 353 mg/dL (70-99) Test 10/21/19 10:15 White Blood Count 8.9 x10^3/uL (4.0-11.0) Red Blood Count 2.71 x10^6/uL (4.30-5.70) Hemoglobin 8.1 g/dL (13.0-17.5) Hematocrit 24.9 % (39.0-53.0) Mean Corpuscular Volume 92 fL (79-100) Mean Corpuscular Hemoglobin 30 pg (25-35) Mean Corpuscular Hemoglobin Concent 33 g/dL (31-37) Red Cell Distribution Width 17.5 % (11.5-14.5) Platelet Count 244 x10^3/uL (140-400) Neutrophils (%) (Auto) 86 % (31-73) Lymphocytes (%) (Auto) 7 % (24-48) Monocytes (%) (Auto) 6 % (0-9) Eosinophils (%) (Auto) 0 % (0-3) Basophils (%) (Auto) 1 % (0-3) Neutrophils # (Auto) 7.7 x10^3/uL (1.8-7.7) Lymphocytes # (Auto) 0.6 x10^3/uL (1.0-4.8) Monocytes # (Auto) 0.6 x10^3/uL (0.0-1.1) Eosinophils # (Auto) 0.0 x10^3/uL (0.0-0.7) Basophils # (Auto) 0.1 x10^3/uL (0.0-0.2) Sodium Level 131 mmol/L (136-145) Potassium Level 4.1 mmol/L (3.5-5.1) Chloride Level 94 mmol/L (98-107) Carbon Dioxide Level 25 mmol/L (21-32) Anion Gap 12 (6-14) Blood Urea Nitrogen 25 mg/dL (8-26) Creatinine 3.5 mg/dL (0.7-1.3) Estimated GFR (Cockcroft-Gault) 18.3 Glucose Level 412 mg/dL (70-99) Calcium Level 8.4 mg/dL (8.5-10.1) Microbiology 10/12/19 Blood Culture - Final, Complete NO GROWTH AFTER 5 DAYS 10/08/19 Aerobic Culture - Final, Complete 10/08/19 Aerobic Culture Result 1 (HEATHER) - Final, Complete 10/08/19 Gram Stain - Final, Complete 10/08/19 Gram Stain Result 1 (HEATHER) - Final, Complete 10/08/19 Gram Stain Result 2 (HEATHER) - Final, Complete Medications Current Medications Ondansetron HCl (Zofran) 4 mg PRN Q4HRS PRN IV NAUSEA/VOMITING; Start 10/08/19 at 16:30 Acetaminophen (Tylenol) 650 mg PRN Q4HRS PRN PO TEMP OVER 100.4F OR MILD PAIN Last administered on 10/20/19at 17:44; Start 10/08/19 at 16:30 Docusate Sodium (Colace) 100 mg PRN BID PRN PO CONSTIPATION; Start 10/08/19 at 16:30 Insulin Human Lispro (HumaLOG) 0-7 UNITS TIDACHC SQ Last administered on 10/16/19at 10:07; Start 10/08/19 at 21:00; Stop 10/17/19 at 08:52; Status DC Dextrose (Dextrose 50%-Water Syringe) 12.5 gm PRN Q15MIN PRN IV SEE COMMENTS Last administered on 10/19/19at 16:15; Start 10/08/19 at 17:00 Dextrose (Iv Dextrose 5%) 250 ml PRN Q15MIN PRN IV SEE COMMENTS; Start 10/08/19 at 17:00 Aspirin (Ecotrin) 81 mg DAILYWBKFT PO Last administered on 10/18/19at 08:12; Start 10/09/19 at 08:00; Stop 10/18/19 at 18:13; Status DC Atorvastatin Calcium (Lipitor) 40 mg HS PO Last administered on 10/20/19at 22:29; Start 10/08/19 at 21:00 Furosemide (Lasix) 80 mg BID94 PO Last administered on 10/10/19at 16:15; Start 10/08/19 at 18:00; Stop 10/15/19 at 13:33; Status DC Lactobacillus Rhamnosus (Culturelle) 1 cap BID PO Last administered on 10/21/19at 09:35; Start 10/08/19 at 21:00 Montelukast Sodium (Singulair) 10 mg HS PRN PO ALLERGIES; Start 10/08/19 at 17:00 Ondansetron HCl (Zofran Odt) 4 mg PRN Q6HRS PRN PO NAUSEA; Start 10/08/19 at 17:00; Stop 10/15/19 at 13:33; Status DC Tamsulosin HCl (Flomax) 0.4 mg HS PO Last administered on 10/20/19at 22:30; Start 10/08/19 at 21:00 Tramadol HCl (Ultram) 50 mg PRN Q6HRS PRN PO MODERATE PAIN; Start 10/08/19 at 1 7:00; Stop 10/12/19 at 11:56; Status DC Insulin Glargine (Lantus Syringe) 10 unit QHS SQ Last administered on 10/14/19at 22:14; Start 10/08/19 at 21:00; Stop 10/17/19 at 08:52; Status DC Losartan Potassium (Cozaar) 100 mg HS PO Last administered on 10/20/19at 22:29; Start 10/08/19 at 21:00 Pantoprazole Sodium (Protonix) 40 mg DAILYAC PO Last administered on 10/10/19at 10:10; Start 10/09/19 at 07:30; Stop 10/12/19 at 09:54; Status DC Sodium Chloride 500 ml @ 500 mls/hr 1X ONCE IV Last administered on 10/08/19at 20:00; Start 10/08/19 at 20:00; Stop 10/08/19 at 20:59; Status DC Calcium Acetate (Phoslo) 1,334 mg TIDWMEALS PO Last administered on 10/21/19at 09:35; Start 10/08/19 at 20:00 Vitamin A/Vitamin D (Vitamin A & D Ointment) 1 luecro PRN Q1HR PRN TP SKIN PROTECTION; Start 10/09/19 at 09:00 Doxycycline Hyclate (Vibra-Tab) 100 mg BID PO Last administered on 10/10/19at 10:08; Start 10/09/19 at 11:00; Stop 10/10/19 at 10:21; Status DC Fluconazole (Diflucan) 100 mg DAILY PO Last administered on 10/10/19at 10:08; Start 10/09/19 at 10:30; Stop 10/12/19 at 11:57; Status DC Amoxicillin/ Clavulanate Potassium (Augmentin 500/ 125mg) 1 tab DAILY PO Last administered on 10/10/19at 10:08; Start 10/09/19 at 10:30; Stop 10/10/19 at 10:21; Status DC Vancomycin HCl (Vanco Per Pharmacy) 1 each PRN DAILY PRN MC SEE COMMENTS Last administered on 10/11/19at 15:08; Start 10/10/19 at 10:30; Stop 10/12/19 at 11:56; Status DC Piperacillin Sod/ Tazobactam Sod 2.25 gm/Sodium Chloride 50 ml @ 100 mls/hr Q8HRS IV Last administered on 10/11/19at 22:06; Start 10/10/19 at 11:00; Stop 10/12/19 at 11:56; Status DC Vancomycin HCl 1.5 gm/Sodium Chloride 500 ml @ 250 mls/hr 1X ONCE IV Last administered on 10/10/19at 16:14; Start 10/10/19 at 11:00; Stop 10/10/19 at 12:59; Status DC Vancomycin HCl (Vancomycin Random Level) 1 each 1X ONCE MC Last administered on 10/12/19at 05:00; Start 10/12/19 at 05:00; Stop 10/12/19 at 05:01; Status DC Acetaminophen (Tylenol Supp) 650 mg PRN Q6HRS PRN [place] MILD PAIN / TEMP Last administered on 10/17/19at 23:24; Start 10/12/19 at 06:00 Pantoprazole Sodium (PROTONIX VIAL for IV PUSH) 40 mg DAILYAC IVP Last administered on 10/18/19at 08:12; Start 10/12/19 at 10:00; Stop 10/18/19 at 09:53; Status DC Meropenem 500 mg/ Sodium Chloride 50 ml @ 100 mls/hr Q8HRS IV Last administered on 10/13/19at 06:00; Start 10/12/19 at 13:00; Stop 10/13/19 at 13:10; Status DC Micafungin Sodium 100 mg/Dextrose 100 ml @ 100 mls/hr Q24H IV Last administered on 10/16/19at 18:20; Start 10/12/19 at 12:00; Stop 10/17/19 at 11:38; Status DC Linezolid/Dextrose 300 ml @ 300 mls/hr Q12HR IV Last administered on 10/16/19at 08:46; Start 10/12/19 at 12:00; Stop 10/16/19 at 10:46; Status DC Amino Acids/ Electrolytes/ Dextrose 1,000 ml @ 80 mls/hr [id number] IV Last administered on 10/16/19at 22:27; Start 10/12/19 at 16:30; Stop 10/17/19 at 08:52; Status DC Heparin Sodium (Porcine) (Heparin Sodium) 5,000 unit Q8HRS SQ Last administered on 10/15/19at 06:26; Start 10/13/19 at 06:00; Stop 10/15/19 at 13:03; Status DC Insulin Human Lispro (HumaLOG) 21 units 1X ONCE SQ Last administered on 10/13/19at 09:26; Start 10/13/19 at 09:30; Stop 10/13/19 at 09:31; Status DC Insulin Human Lispro (HumaLOG) 4 units Q6HRS SQ Last administered on 10/17/19at 06:39; Start 10/13/19 at 12:00; Stop 10/17/19 at 08:52; Status DC Meropenem 500 mg/ Sodium Chloride 50 ml @ 100 mls/hr Q12HR IV Last administered on 10/17/19at 09:00; Start 10/13/19 at 21:00; Stop 10/17/19 at 11:38; Status DC Barium Sulfate (Varibar Thin Liquid Apple) 148 gm 1X ONCE PO ; Start 10/14/19 at 11:30; Stop 10/14/19 at 11:31; Status DC Barium Sulfate (Varibar Thin Liquid Apple) 148 gm 1X ONCE PO Last administered on 10/15/19at 11:10; Start 10/15/19 at 10:00; Stop 10/15/19 at 10:02; Status DC Darbepoetin Zaid (ARANESP for DIALYSIS PTS) 60 mcg WEEKLYHS SQ Last administered on 10/15/19at 23:41; Start 10/15/19 at 21:00 Lidocaine/ Epinephrine (LIDOCAINE 1%-EPI 1:100,000 Multi-Dose) 20 ml STK-MED ONCE .ROUTE ; Start 10/15/19 at 13:16; Stop 10/15/19 at 13:17; Status DC Furosemide (Lasix) 80 mg BID92 IVP Last administered on 10/18/19at 08:12; Start 10/15/19 at 14:00; Stop 10/19/19 at 09:17; Status DC Labetalol HCl (Normodyne Iv Push) 10 mg PRN Q2HR PRN IVP HYPERTENSION; Start 10/15/19 at 13:45 Ondansetron HCl (Zofran) 4 mg PRN Q6HRS PRN IV NAUSEA/VOMITING; Start 10/16/19 at 07:00; Stop 10/17/19 at 06:59; Status DC Fentanyl Citrate (Fentanyl 2ml Vial) 25 mcg PRN Q5MIN PRN IV MILD PAIN 1-3; Start 10/16/19 at 07:00; Stop 10/17/19 at 06:59; Status DC Fentanyl Citrate (Fentanyl 2ml Vial) 50 mcg PRN Q5MIN PRN IV MODERATE TO SEVERE PAIN; Start 10/16/19 at 07:00; Stop 10/17/19 at 06:59; Status DC Morphine Sulfate (Morphine Sulfate) 1 mg PRN Q10MIN PRN IV SEVERE PAIN 7-10; Start 10/16/19 at 07:00; Stop 10/17/19 at 06:59; Status DC Ringer's Solution 1,000 ml @ 30 mls/hr Q24H IV ; Start 10/16/19 at 07:00; Stop 10/16/19 at 18:59; Status DC Lidocaine HCl (Xylocaine-Mpf 1% 2ml Vial) 2 ml PRN 1X PRN ID PRIOR TO IV START; Start 10/16/19 at 07:00; Stop 10/17/19 at 06:59; Status DC Hydromorphone HCl (Dilaudid) 0.5 mg PRN Q10MIN PRN IV SEV PAIN, Second choice; Start 10/16/19 at 07:00; Stop 10/17/19 at 06:59; Status DC Prochlorperazine Edisylate (Compazine) 5 mg PACU PRN PRN IV NAUSEA, MRX1; Start 10/16/19 at 07:00; Stop 10/17/19 at 06:59; Status DC Lidocaine/ Epinephrine (LIDOCAINE 1%-EPI 1:100,000 Multi-Dose) 19 ml 1X ONCE INJ Last administered on 10/15/19at 14:54; Start 10/15/19 at 15:00; Stop 10/15/19 at 15:01; Status DC Sodium Chloride 1,000 ml @ 1,000 mls/hr Q1H PRN IV hypotension; Start 10/15/19 at 16:04; Stop 10/15/19 at 22:03; Status DC Acetaminophen (Tylenol) 500 mg 1X PRN PRN PO MILD PAIN / TEMP; Start 10/15/19 at 16:15; Stop 10/16/19 at 16:14; Status DC Diphenhydramine HCl (Benadryl) 25 mg 1X PRN PRN IV ITCHING; Start 10/15/19 at 16:15; Stop 10/16/19 at 16:14; Status DC Diphenhydramine HCl (Benadryl) 25 mg 1X PRN PRN IV ITCHING; Start 10/15/19 at 16:15; Stop 10/16/19 at 16:14; Status DC Sodium Chloride 1,000 ml @ 400 mls/hr Q2H30M PRN IV PATENCY; Start 10/15/19 at 16:04; Stop 10/16/19 at 04:03; Status DC Info (PHARMACY MONITORING -- do not chart) 1 each PRN DAILY PRN MC SEE COMMENTS; Start 10/15/19 at 16:15; Status Cancel Sodium Chloride 1,000 ml @ 1,000 mls/hr Q1H PRN IV hypotension; Start 10/16/19 at 10:40; Stop 10/16/19 at 16:39; Status DC Albumin Human 200 ml @ 200 mls/hr 1X PRN PRN IV Hypotension; Start 10/16/19 at 10:45; Stop 10/16/19 at 16:44; Status DC Sodium Chloride 1,000 ml @ 400 mls/hr Q2H30M PRN IV PATENCY; Start 10/16/19 at 10:40; Stop 10/16/19 at 22:39; Status DC Info (PHARMACY MONITORING -- do not chart) 1 each PRN DAILY PRN MC SEE COMMENTS; Start 10/16/19 at 10:45; Status UNV Info (PHARMACY MONITORING -- do not chart) 1 each PRN DAILY PRN MC SEE COMMENTS; Start 10/16/19 at 10:45; Status Cancel Sodium Chloride 1,000 ml @ 30 mls/hr Q24H IV Last administered on 10/17/19at 08:44; Start 10/16/19 at 14:45 Propofol 20 ml @ As Directed STK-MED ONCE IV ; Start 10/16/19 at 15:34; Stop 10/16/19 at 15:34; Status DC Dexamethasone Sodium Phosphate (Decadron) 4 mg STK-MED ONCE .ROUTE ; Start 10/16/19 at 15:34; Stop 10/16/19 at 15:34; Status DC Lidocaine HCl (Lidocaine Pf 2% Vial) 5 ml STK-MED ONCE .ROUTE ; Start 10/16/19 at 15:34; Stop 10/16/19 at 15:34; Status DC Ondansetron HCl (Zofran) 4 mg STK-MED ONCE .ROUTE ; Start 10/16/19 at 15:34; Stop 10/16/19 at 15:35; Status DC Rocuronium [place] (Zemuron) 50 mg STK-MED ONCE .ROUTE ; Start 10/16/19 at 15:34; Stop 10/16/19 at 15:35; Status DC Bupivacaine HCl/ Epinephrine Bitart (Sensorcain-Epi 0.5%-1:[id number] Mpf) 30 ml STK-MED ONCE .ROUTE Last administered on 10/16/19at 16:15; Start 10/16/19 at 15:44; Stop 10/16/19 at 15:44; Status DC Ketamine HCl (Ketamine) 50 mg STK-MED ONCE .ROUTE ; Start 10/16/19 at 16:03; Stop 10/16/19 at 16:03; Status DC Midazolam HCl (Versed) 2 mg STK-MED ONCE .ROUTE ; Start 10/16/19 at 16:03; Stop 10/16/19 at 16:03; Status DC Sodium Chloride 1,000 ml @ 0 mls/hr Q0M IV ; Start 10/17/19 at 08:45; Status Cancel Propofol 20 ml @ As Directed STK-MED ONCE IV ; Start 10/17/19 at 08:49; Stop 10/17/19 at 08:49; Status DC Lidocaine HCl (Lidocaine Pf 2% Vial) 5 ml STK-MED ONCE .ROUTE ; Start 10/17/19 at 08:49; Stop 10/17/19 at 08:49; Status DC Insulin Glargine (Lantus Syringe) 25 unit QHS SQ Last administered on 10/17/19at 21:27; Start 10/17/19 at 09:00; Stop 10/18/19 at 08:51; Status DC Insulin Human Lispro (HumaLOG) 6 units Q6HRS SQ Last administered on 10/17/19at 12:22; Start 10/17/19 at 09:00; Stop 10/18/19 at 08:51; Status DC Insulin Human Lispro (HumaLOG) 0-9 UNITS TIDWMEALS SQ Last administered on 10/20at 13:03; Start 10/17/19 at 12:00; Stop 10/21/19 at 08:09; Status DC Dextrose (Dextrose 50%-Water Syringe) 12.5 gm PRN Q15MIN PRN IV SEE COMMENTS; Start 10/17/19 at 09:00; Status Cancel Dextrose (Iv Dextrose 5%) 250 ml PRN Q15MIN PRN IV SEE COMMENTS; Start 10/17/19 at 09:00; Status Cancel Sodium Chloride 1,000 ml @ 1,000 mls/hr Q1H PRN IV hypotension; Start 10/17/19 at 12:42; Stop 10/17/19 at 18:41; Status DC Sodium Chloride 1,000 ml @ 400 mls/hr Q2H30M PRN IV PATENCY; Start 10/17/19 at 12:42; Stop 10/18/19 at 00:41; Status DC Info (PHARMACY MONITORING -- do not chart) 1 each PRN DAILY PRN MC SEE COMMENTS; Start 10/17/19 at 12:45; Status UNV Info (PHARMACY MONITORING -- do not chart) 1 each PRN DAILY PRN MC SEE COMMENTS; Start 10/17/19 at 12:45; Status UNV Insulin Glargine (Lantus Syringe) 18 unit QHS SQ ; Start 10/18/19 at 21:00; Stop 10/18/19 at 11:42; Status DC Lansoprazole (Prevacid) 30 mg DAILY FT Last administered on 10/21/19at 09:35; Start 10/19/19 at 09:00 Dextrose/Sodium Chloride 1,000 ml @ 75 mls/hr 1X ONCE IV Last administered on 10/18/19at 12:15; Start 10/18/19 at 11:45; Stop 10/19/19 at 01:04; Status DC Aspirin (Ecotrin) 325 mg DAILYWBKFT PO Last administered on 10/21/19at 09:35; Start 10/19/19 at 08:00 Dextrose/Sodium Chloride 1,000 ml @ 75 mls/hr 1X ONCE IV Last administered on 10/19/19at 04:00; Start 10/19/19 at 04:00; Stop 10/19/19 at 17:19; Status DC Iodixanol (Visipaque 320) 100 ml STK-MED ONCE .ROUTE ; Start 10/19/19 at 08:08; Stop 10/19/19 at 08:09; Status DC Lidocaine HCl (Buffered Lidocaine 1%) 3 ml STK-MED ONCE .ROUTE ; Start 10/19/19 at 08:09; Stop 10/19/19 at 08:09; Status DC Heparin Sodium/ Sodium Chloride 1,500 ml @ As Directed STK-MED ONCE .ROUTE ; Start 10/19/19 at 08:09; Stop 10/19/19 at 08:09; Status DC Iodixanol (Visipaque 320) 100 ml STK-MED ONCE .ROUTE ; Start 10/19/19 at 08:09; Stop 10/19/19 at 08:09; Status DC Sodium Chloride 1,000 ml @ 1,000 mls/hr Q1H PRN IV hypotension; Start 10/19/19 at 08:24; Stop 10/19/19 at 14:23; Status DC Sodium Chloride 1,000 ml @ 400 mls/hr Q2H30M PRN IV PATENCY; Start 10/19/19 at 08:24; Stop 10/19/19 at 20:23; Status DC Info (PHARMACY MONITORING -- do not chart) 1 each PRN DAILY PRN MC SEE COMMENTS; Start 10/19/19 at 08:30; Status Cancel Info (PHARMACY MONITORING -- do not chart) 1 each PRN DAILY PRN MC SEE COMMENTS; Start 10/19/19 at 08:30 Midazolam HCl (Versed) 5 mg STK-MED ONCE .ROUTE ; Start 10/19/19 at 08:39; Stop 10/19/19 at 08:40; Status DC Fentanyl Citrate (Fentanyl 5ml Vial) 250 mcg STK-MED ONCE .ROUTE ; Start 10/19/19 at 08:39; Stop 10/19/19 at 08:40; Status DC Dextrose (Dextrose 50%-Water Syringe) 25 gm STK-MED ONCE IV ; Start 10/19/19 at 08:42; Stop 10/19/19 at 08:43; Status DC Heparin Sodium (Porcine) (Heparin Sodium) 10,000 unit STK-MED ONCE .ROUTE ; S tart 10/19/19 at 09:11; Stop 10/19/19 at 09:12; Status DC Dextrose/Sodium Chloride 1,000 ml @ 75 mls/hr [id number] IV Last administered on 10/20/19at 13:00; Start 10/19/19 at 09:30; Stop 10/20/19 at 16:17; Status DC Furosemide (Lasix) 40 mg [id number] IVP Last administered on 10/21/19at 09:34; Start 10/19/19 at 09:30 Heparin Sodium/ Sodium Chloride (HEPARIN for ARTERIAL LINE FLUSH) 1,000 unit 1X ONCE IART Last administered on 10/19/19at 09:30; Start 10/19/19 at 09:30; Stop 10/19/19 at 09:31; Status DC Heparin Sodium/ Sodium Chloride (HEPARIN for ARTERIAL LINE FLUSH) 1,000 unit 1X ONCE IART Last administered on 10/19/19at 09:30; Start 10/19/19 at 09:30; Stop 10/19/19 at 09:31; Status DC Lidocaine HCl (Buffered Lidocaine 1%) 3 ml 1X ONCE IJ Last administered on at 09:30; Start 10/19/19 at 09:30; Stop 10/19/19 at 09:31; Status DC Midazolam HCl (Versed) 5 mg 1X ONCE IV Last administered on 10/19/19at 09:30; Start 10/19/19 at 09:30; Stop 10/19/19 at 09:31; Status DC Fentanyl Citrate (Fentanyl 5ml Vial) 250 mcg 1X ONCE IV Last administered on 10/19/19at 09:30; Start 10/19/19 at 09:30; Stop 10/19/19 at 09:31; Status DC Iodixanol (Visipaque 320) 100 ml 1X ONCE IART Last administered on 10/19/19at 09:30; Start 10/19/19 at 09:30; Stop 10/19/19 at 09:31; Status DC Midazolam HCl (Versed) 2 mg STK-MED ONCE .ROUTE ; Start 10/19/19 at 09:57; Stop 10/19/19 at 09:57; Status DC Ketamine HCl (Ketamine) 50 mg STK-MED ONCE .ROUTE ; Start 10/19/19 at 09:57; Stop 10/19/19 at 09:57; Status DC Propofol 20 ml @ As Directed STK-MED ONCE IV ; Start 10/19/19 at 09:57; Stop 10/19/19 at 09:57; Status DC Iodixanol (Visipaque 320) 100 ml STK-MED ONCE .ROUTE ; Start 10/19/19 at 10:27; Stop 10/19/19 at 10:27; Status DC Heparin Sodium (Porcine) (Heparin Sodium) 5,000 unit 1X ONCE IV Last administered on 10/19/19at 10:50; Start 10/19/19 at 11:00; Stop 10/19/19 at 11:01; Status DC Fentanyl Citrate (Fentanyl 2ml Vial) 100 mcg STK-MED ONCE .ROUTE ; Start 10/19/19 at 11:37; Stop 10/19/19 at 11:37; Status DC Fentanyl Citrate (Fentanyl 2ml Vial) 100 mcg 1X ONCE IVP Last administered on 10/19/19at 11:42; Start 10/19/19 at 11:45; Stop 10/19/19 at 11:46; Status DC Propofol (Diprivan) 200 mg STK-MED ONCE IV ; Start 10/19/19 at 10:00; Stop 10/19/19 at 13:05; Status DC Metoprolol Tartrate (Lopressor) 25 mg BID PO Last administered on 10/21/19at 09:36; Start 10/19/19 at 21:00 Digoxin (Lanoxin) 250 mcg 1X ONCE IV ; Start 10/19/19 at 14:15; Stop 10/19/19 at 14:16; Status Cancel Insulin Human Lispro (HumaLOG) 0-9 UNITS Q6HRS SQ Last administered on 10/21/19at 10:11; Start 10/21/19 at 08:15 Active Scripts Active Humalog (Insulin Lispro) 100 Unit/1 Ml Insuln.pen 6 Units SQ Q6HRS 30 Days Lantus (Insulin Glargine,Hum.rec.anlog) 100 Unit/1 Ml Vial 25 Unit SQ QHS 30 Days Tramadol Hcl 50 Mg Tablet 50 Mg PO PRN Q6HRS PRN 3 Days Culturelle (Lactobacillus Rhamnosus Gg) 1 Each Cap.sprink 1 Cap PO BID 7 Days Aspirin Ec (Aspirin) 81 Mg Tablet.dr 81 Mg PO DAILYWBKFT Reported Glyburide 5 Mg Tablet 5 Mg PO DAILY Omeprazole 20 Mg Tablet.dr 20 Mg PO DAILY Calcitriol 0.5 Mcg Capsule 0.5 Mcg PO DAILY Furosemide 80 Mg Tablet 80 Mg PO BID Tamsulosin Hcl 0.4 Mg Cap.er.24h 1 Cap PO HS Montelukast Sodium Tablet (Montelukast Sodium) 10 Mg Tablet 1 Tab PO HS PRN Ondansetron Odt (Ondansetron) 4 Mg Tab.rapdis 1 Tab PO PRN Q6-8HRS PRN Cozaar (Losartan Potassium) 100 Mg Tablet 100 Mg PO HS Carvedilol 25 Mg Tablet 25 Mg PO BIDWMEALS Atorvastatin Calcium 40 Mg Tablet 40 Mg PO HS Vitals/I & O Vital Sign - Last 24 Hours 10/20/19 10/20/19 10/20/19 10/20/19 11:29 12:05 12:20 12:35 Temp 98.3 98.6 98.0 98.2 98.3 98.6 98.0 98.2 Pulse 89 94 89 91 Resp 18 18 18 18 B/P (MAP) 155/56 (89) 130/36 144/51 134/38 Pulse Ox 100 O2 Delivery Room Air 10/20/19 10/20/19 10/20/19 10/20/19 12:50 13:50 14:10 15:30 Temp 98.2 98.2 98.2 97.7 98.2 98.2 98.2 97.7 Pulse 94 88 89 108 Resp 20 B/P (MAP) 111/44 143/47 128/61 163/75 (104) Pulse Ox 92 O2 Delivery Nasal Cannula O2 Flow Rate 2.0 10/20/19 10/20/19 10/20/19 10/20/19 19:42 19:57 22:29 22:30 Temp 97.5 97.5 Pulse 69 69 69 Resp 18 B/P (MAP) 136/73 (94) 136/73 136/73 Pulse Ox 90 O2 Delivery Nasal Cannula Nasal Cannula O2 Flow Rate 2.0 3.0 10/20/19 10/21/19 10/21/19 10/21/19 23:40 03:32 07:30 09:36 Temp 98.0 97.5 98.0 97.5 Pulse 77 62 99 99 Resp 16 18 20 B/P (MAP) 139/44 (75) 134/39 (70) 139/49 (79) 139/49 Pulse Ox 91 92 98 O2 Delivery Nasal Cannula Nasal Cannula Nasal Cannula O2 Flow Rate 3.0 3.0 3.0 Intake and Output 10/20/19 10/20/19 10/21/19 15:00 23:00 07:00 Intake Total 385 ml 0 ml 1867 ml Output Total 200 ml Balance 385 ml -200 ml 1867 ml Nutrition Consultation Dietary Evaluation: Recommendations by RD: Dietary education by RD Comments: REC continue TF as ordered REC mvi and vit c per wound protocal due to multiple skin breakdown areas - See wound assessment Expected Outcomes/Goals: to meet >75% est nutr needs via TF Interpretation of weight loss: >5% in 1 month Malnutrition Findings: Food and Nutrition Intake (Sev: <50% est energy req 5days Body Fat Depletion (Non Severe: Mild Depletion Weight Status: Underweight Hemodynamically unstable?: No Is patient in severe pain?: No Is NPO status required?: Yes ILAN GARRISON MD Oct 21, 2019 10:55
[2019-10-21 11:00] VITALS: BP 166/42
[2019-10-21 11:10] LABS: % BANDS 4 % (0-9); % BASOS 1 % (0-3); % LYMPHS 6 % (24-48); % MONOS 1 % (0-10); % SEGS 88 % (35-66); ANISOCYTOSIS PRESENT; PLT ESTIMATE ADEQUATE (ADEQUATE)
[2019-10-21] MEDS: IV NORMAL SALINE 1000ML BAG 1,000 ML IV SCH (14:45)
[2019-10-21 15:35] VITALS: BP 127/54
[2019-10-21 19:30] VITALS: BP 146/47
[2019-10-21] MEDS: ATORVASTATIN CALCIUM 40 MG TABLET. PO SCH (22:21)
[2019-10-21] MEDS: LOSARTAN POTASSIUM 50 MG TABLET. PO SCH (22:22)
[2019-10-21] MEDS: TAMSULOSIN 0.4 MG CAP.ER.24H. PO SCH (22:22)
[2019-10-22] MEDS: DEXTROSE 50% 25 GM / 50ML DISP.SYRIN. IV PRN ×2 (00:01→00:45)
[2019-10-22 00:30] VITALS: BP 159/84
[2019-10-22 05:00] VITALS: BP 124/90
[2019-10-22] MEDS: INSULIN LISPRO 300 UNITS/3 ML VIAL. SQ SCH ×4 (06:00→19:09)
[2019-10-22 07:59] VITALS: BP 146/78
[2019-10-22] MEDS ORDERED: ASPIRIN ENTERIC COATED 325 MG TABLET.DR. PO SCH (08:00)
[2019-10-22] MEDS ORDERED: IV DEXTROSE 5% 250 ML BAG. IV PRN (08:30)
[2019-10-22] MEDS ORDERED: DEXTROSE 50% 25 GM / 50ML DISP.SYRIN. IV PRN (08:30)
--- NOTE | 2019-10-22 08:34 | PDOC ---
PROGRESS NOTES Chief Complaint Chief Complaint A/P: PAD, acute stenosis BILATERAL FEM ARTERIES Moderate stenosis proximal left SFA. Moderate stenosis distal SFA. High-grade stenosis left popliteal artery. Occlusion of the posterior tibial artery. High-grade stenosis at the origin of the anterior tibial artery, which appears to be the dominant blood supply to the foot RT necrotic big toe/gangrene RT BOG tOE gangrene HYPOGLYCEMIA - 10/17 Acute encephalopathy - metabolic 2/2 DKA and toxic 2/2 likely infectious etiology. Still somewhat confused DKA, type 2 - off insulin GTT. will repeat BMP, Elevated alkaline phosphatase level - monitor, Lactic acidosis - likely due to diabetes mellitus. Will trend Penile cellulitis - present on admission, likely from failure to f/u outpatient - Doxy and augmentin with fluconazole previously./// culture and consult ID ESRD on HD transitioning to PD prior to his admission - tolerating well. Will consult nephrology Sepsis - from penile cellulitis as etiology, f/u cultures. Previously with coag negative staph on PD culture. F/u repeat culture HTN - cont meds DM type 2 insulin requiring - now hyperglycemic, previously with hypoglycemic event - hypoglycemia protocol. Cont insulin basal bolus plus once out of DKA Severe protein calorie malnutrition - unclear etiology, albumin 1.2, definitely has inconsistent PO intake. [employer] to see Anemia - of chronic renal disease Penile cellulitis, could have a component of vasculature involvement. U/S shows no abscess - painless ulcer concerning. Syphilis testing negative previously. Wound care to see Gait instability - needs further PT Anemia - of chronic renal disease Hyperphosphatemia - likely related to phos binder compliance difficulties. add phos binder, post angio and multilevel angioplasty 10/19 28 min pt exam, chart review, > 50% of time spent with exam, chart review, pt care coordination History of Present Illness History of Present Illness Mr Easton is a 53yo M w/ PMHx hypertension, diabetes, and end-stage renal disease previously on hemodialysis who transitioned to peritoneal dialysis mid 2018. Presented to [facility] via EMS with hyperglycemia and altered mental status. The patient's relatives who lives out of state was talking to him on the phone and thought that he sounded unusual. EMS found the patient on the couch and the pat ient admits to sitting there for 3 days. He had urine and feces on him. His initial blood sugar was well over 400. He was alert to himself only at first. He was becoming more alert during transport. Patient denies any falls. He denies drinking alcohol though his family is concerned he has been drinking. ETOH level not detectable. The patient is a long-standing diabetic. He is on dialysis. He says that he used peritoneal dialysis last night. He does not have any additional specific complaints. He denies any falls or trauma. CXR clear BUN 65, Cr 9.5, Albumin 1.2, WBC 13, Hb 9.4, his anion gap is 22. His blood sugar was 484. Lactate 4. Alkaline phosphatase 583. Called for admission for further treatment of his confusion and labs abnormalities. No nephrology services at [facility] so transferred to [facility]. 10/09: Gap closed, eating. Still confused. His brother from [place], [place] has called and noted that he has called adult protective services on Mr Easton's . Patient does not want to discuss this with me. He is amenable to rehab referral and outpatient referral to urology as well. 10/10: WBC still up. Denies CP. Mild SOB. Penile pain and bilateral hand pain as well as abdominal pain. He is still confused today. 10/11: States he ate breakfast. No abdominal pain or penile pain today. Still with some cough and SOB, near his baseline. Very weak. Ammonia negative. MRI negative for strok. [employer] evaluated, grossly aspirating, placed NPO. D/w Robin, his DPOA to consult GI for PEG consideration 10/12: Fever 102F, mentally very slow. CT head negative. Aspirating, consulted GI to consider PEG, would need to remove PD cath and convert to HD. His LUE fistula examined - Occlusion distal brachiocephalic fistula with thrombus in cephalic venous portion of the fistula outflow region. 10/13: D/w family may need feeding tube and convert to HD. Still very slow mentally. He states he feels fine. Barely able to move. PPN at 80cc/hr. Glucose in 400s 10/14: Lost IV access. Failed videoswallow. Thinks his brother Robin is in the room and occasionally still thinks he is in [place], but upon further questioning and reminding he recalls that he is at [place]. He refuses to see psychiatrist. He is also asking for valium and gabapentin. 10/15: WBC improving. He wishes to go home, however his brother informs me that the camper he lives in with his is "uninhabitable" and has over 40 cats living in and around it. According to the patient's son this is not an exaggeration. 10/16: PD cath out 10/17: PEG placed 10/18: Metapneumovirus on viral panel positive. 10/19: Off antibiotics 10/20: Hypoglycemia. 10/21: Having arteriogram and revascularization plans for limb salvage by [facility] sx - will f/u outpatient for this. Hypoglycemic despite tube feedings. Off abx - dw ID, SLated for lTAC, HYpoglycemia persisted yesterday despite TF via PEG at 30cc (goal 40cc/hr) - new PEG PLAn: POst op labs POst op care Dectrose iVF prn/gtt for hYPOGLYCEMIA - off insulin now (was on SQ pushes) LTAC on dc NUtrition consulted, skin and bones FUll code Brother is his support family Vitals Vitals Vital Signs Date Time Temp Pulse Resp B/P (MAP) Pulse Ox O2 Delivery O2 Flow Rate FiO2 10/22/19 07:59 97.6 89 18 146/78 (100) 99 Nasal Cannula 3.0 97.6 Physical Exam Physical Exam GENERAL: Alert today. in bed - NAD - coop HEENT: Normocephalic, atraumatic, anicteric. No thrush. NECK: No tenderness. Supple, no JVD, LUNGS: Clear. HEART: S1, S2. ABDOMEN: Soft. PD catheter in place, nontender, nondistended. GENITOURINARY: Penile swelling, min redness with eschar like lesion,, No purulence noted - No drainage today - still painful EXTREMITIES: no pedal edema/swelling/joint pain or erythema SKIN: Dry skin. No cyanosis.superficial skin erythema on back pressure changes NEUROLOGIC:Answering questions well. appropriate PSYCHIATRIC flat General: Alert, Cooperative, No acute distress Heart: Regular rate, Normal S1, Normal S2 Lungs: Clear, Other Abdomen: Normal bowel sounds, Soft, Other (lap sites c/d/i) Extremities: No clubbing, No cyanosis Skin: No rashes, No breakdown Labs LABS Laboratory Tests Test 10/21/19 10:15 10/21/19 13:12 10/21/19 17:56 10/22/19 00:00 White Blood Count 8.9 x10^3/uL (4.0-11.0) Red Blood Count 2.71 x10^6/uL (4.30-5.70) Hemoglobin 8.1 g/dL (13.0-17.5) Hematocrit 24.9 % (39.0-53.0) Mean Corpuscular Volume 92 fL (79-100) Mean Corpuscular Hemoglobin 30 pg (25-35) Mean Corpuscular Hemoglobin Concent 33 g/dL (31-37) Red Cell Distribution Width 17.5 % (11.5-14.5) Platelet Count 244 x10^3/uL (140-400) Neutrophils (%) (Auto) 86 % (31-73) Lymphocytes (%) (Auto) 7 % (24-48) Monocytes (%) (Auto) 6 % (0-9) Eosinophils (%) (Auto) 0 % (0-3) Basophils (%) (Auto) 1 % (0-3) Neutrophils # (Auto) 7.7 x10^3/uL (1.8-7.7) Lymphocytes # (Auto) 0.6 x10^3/uL (1.0-4.8) Monocytes # (Auto) 0.6 x10^3/uL (0.0-1.1) Eosinophils # (Auto) 0.0 x10^3/uL (0.0-0.7) Basophils # (Auto) 0.1 x10^3/uL (0.0-0.2) Segmented Neutrophils % 88 % (35-66) Band Neutrophils % 4 % (0-9) Lymphocytes % 6 % (24-48) Monocytes % 1 % (0-10) Basophils % 1 % (0-3) Platelet Estimate Adequate (ADEQUATE) Anisocytosis Present Sodium Level 131 mmol/L (136-145) Potassium Level 4.1 mmol/L (3.5-5.1) Chloride Level 94 mmol/L (98-107) Carbon Dioxide Level 25 mmol/L (21-32) Anion Gap 12 (6-14) Blood Urea Nitrogen 25 mg/dL (8-26) Creatinine 3.5 mg/dL (0.7-1.3) Estimated GFR (Cockcroft-Gault) 18.3 Glucose Level 412 mg/dL (70-99) Calcium Level 8.4 mg/dL (8.5-10.1) Glucose (Fingerstick) 306 mg/dL (70-99) 91 mg/dL (70-99) 17 mg/dL (70-99) Test 10/22/19 00:03 10/22/19 00:21 10/22/19 00:28 10/22/19 00:52 Glucose (Fingerstick) 20 mg/dL (70-99) 16 mg/dL (70-99) 30 mg/dL (70-99) Glucose Level 117 mg/dL (70-99) Test 10/22/19 01:12 10/22/19 01:13 10/22/19 06:11 Glucose (Fingerstick) 124 mg/dL (70-99) 130 mg/dL (70-99) 185 mg/dL (70-99) Assessment and Plan Assessmemt and Plan Vascular note: 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 Few areas of dry gangrenous tissue on plantar surface in toe creases. Left femoral access site dressing dry and intact, no hematoma or swelling Angiogram: 1. Diffuse atherosclerotic vascular disease without hemodynamically significant aortoiliac stenosis. 2. 70% stenosis of the right popliteal artery treated with balloon angioplasty 3. Areas of stenosis within the anterior tibial and posterior tibial artery treated with balloon angioplasty 4. Unfortunately no significant reconstitution of the dorsalis pedis or lateral plantar artery is seen, and despite more proximal revascularization, blood flow to the midfoot beyond remains poor. 5. Moderate stenosis proximal left SFA. Moderate stenosis distal SFA. High-grade stenosis left popliteal artery. Occlusion of the posterior tibial artery. High- grade stenosis at the origin of the anterior tibial artery, which appears to be the dominant blood supply to the foot. Multiple moderate narrowings of the posterior tibial artery appear to be present. Dedicated left lower extremity angiography may be helpful. Continue observation to allow demarcation. No plans to bypass right leg. Continue to observe left foot digits. May need percutaneous intervention left leg. Recommend protective measures with rooke boot bilaterally. Follow up in office as scheduled. Comment Review of Relevant I have reviewed the following items alex (where applicable) has been applied. Labs Laboratory Tests Test 10/20/19 10:02 10/20/19 12:54 10/20/19 16:18 10/20/19 21:14 Glucose (Fingerstick) 336 mg/dL (70-99) 298 mg/dL (70-99) 123 mg/dL (70-99) 76 mg/dL (70-99) Test 10/21/19 08:13 10/21/19 10:15 10/21/19 13:12 10/21/19 17:56 Glucose (Fingerstick) 353 mg/dL (70-99) 306 mg/dL (70-99) 91 mg/dL (70-99) White Blood Count 8.9 x10^3/uL (4.0-11.0) Red Blood Count 2.71 x10^6/uL (4.30-5.70) Hemoglobin 8.1 g/dL (13.0-17.5) Hematocrit 24.9 % (39.0-53.0) Mean Corpuscular Volume 92 fL (79-100) Mean Corpuscular Hemoglobin 30 pg (25-35) Mean Corpuscular Hemoglobin Concent 33 g/dL (31-37) Red Cell Distribution Width 17.5 % (11.5-14.5) Platelet Count 244 x10^3/uL (140-400) Neutrophils (%) (Auto) 86 % (31-73) Lymphocytes (%) (Auto) 7 % (24-48) Monocytes (%) (Auto) 6 % (0-9) Eosinophils (%) (Auto) 0 % (0-3) Basophils (%) (Auto) 1 % (0-3) Neutrophils # (Auto) 7.7 x10^3/uL (1.8-7.7) Lymphocytes # (Auto) 0.6 x10^3/uL (1.0-4.8) Monocytes # (Auto) 0.6 x10^3/uL (0.0-1.1) Eosinophils # (Auto) 0.0 x10^3/uL (0.0-0.7) Basophils # (Auto) 0.1 x10^3/uL (0.0-0.2) Segmented Neutrophils % 88 % (35-66) Band Neutrophils % 4 % (0-9) Lymphocytes % 6 % (24-48) Monocytes % 1 % (0-10) Basophils % 1 % (0-3) Platelet Estimate Adequate (ADEQUATE) Anisocytosis Present Sodium Level 131 mmol/L (136-145) Potassium Level 4.1 mmol/L (3.5-5.1) Chloride Level 94 mmol/L (98-107) Carbon Dioxide Level 25 mmol/L (21-32) Anion Gap 12 (6-14) Blood Urea Nitrogen 25 mg/dL (8-26) Creatinine 3.5 mg/dL (0.7-1.3) Estimated GFR (Cockcroft-Gault) 18.3 Glucose Level 412 mg/dL (70-99) Calcium Level 8.4 mg/dL (8.5-10.1) Test 10/22/19 00:00 10/22/19 00:03 10/22/19 00:21 10/22/19 00:28 Glucose (Fingerstick) 17 mg/dL (70-99) 20 mg/dL (70-99) 16 mg/dL (70-99) Glucose Level 117 mg/dL (70-99) Test 10/22/19 00:52 10/22/19 01:12 10/22/19 01:13 10/22/19 06:11 Glucose (Fingerstick) 30 mg/dL (70-99) 124 mg/dL (70-99) 130 mg/dL (70-99) 185 mg/dL (70-99) Laboratory Tests Test 10/21/19 10:15 10/21/19 13:12 10/21/19 17:56 10/22/19 00:00 White Blood Count 8.9 x10^3/uL (4.0-11.0) Red Blood Count 2.71 x10^6/uL (4.30-5.70) Hemoglobin 8.1 g/dL (13.0-17.5) Hematocrit 24.9 % (39.0-53.0) Mean Corpuscular Volume 92 fL (79-100) Mean Corpuscular Hemoglobin 30 pg (25-35) Mean Corpuscular Hemoglobin Concent 33 g/dL (31-37) Red Cell Distribution Width 17.5 % (11.5-14.5) Platelet Count 244 x10^3/uL (140-400) Neutrophils (%) (Auto) 86 % (31-73) Lymphocytes (%) (Auto) 7 % (24-48) Monocytes (%) (Auto) 6 % (0-9) Eosinophils (%) (Auto) 0 % (0-3) Basophils (%) (Auto) 1 % (0-3) Neutrophils # (Auto) 7.7 x10^3/uL (1.8-7.7) Lymphocytes # (Auto) 0.6 x10^3/uL (1.0-4.8) Monocytes # (Auto) 0.6 x10^3/uL (0.0-1.1) Eosinophils # (Auto) 0.0 x10^3/uL (0.0-0.7) Basophils # (Auto) 0.1 x10^3/uL (0.0-0.2) Segmented Neutrophils % 88 % (35-66) Band Neutrophils % 4 % (0-9) Lymphocytes % 6 % (24-48) Monocytes % 1 % (0-10) Basophils % 1 % (0-3) Platelet Estimate Adequate (ADEQUATE) Anisocytosis Present Sodium Level 131 mmol/L (136-145) Potassium Level 4.1 mmol/L (3.5-5.1) Chloride Level 94 mmol/L (98-107) Carbon Dioxide Level 25 mmol/L (21-32) Anion Gap 12 (6-14) Blood Urea Nitrogen 25 mg/dL (8-26) Creatinine 3.5 mg/dL (0.7-1.3) Estimated GFR (Cockcroft-Gault) 18.3 Glucose Level 412 mg/dL (70-99) Calcium Level 8.4 mg/dL (8.5-10.1) Glucose (Fingerstick) 306 mg/dL (70-99) 91 mg/dL (70-99) 17 mg/dL (70-99) Test 10/22/19 00:03 10/22/19 00:21 10/22/19 00:28 10/22/19 00:52 Glucose (Fingerstick) 20 mg/dL (70-99) 16 mg/dL (70-99) 30 mg/dL (70-99) Glucose Level 117 mg/dL (70-99) Test 10/22/19 01:12 10/22/19 01:13 10/22/19 06:11 Glucose (Fingerstick) 124 mg/dL (70-99) 130 mg/dL (70-99) 185 mg/dL (70-99) Microbiology 10/12/19 Blood Culture - Final, Complete NO GROWTH AFTER 5 DAYS 10/08/19 Aerobic Culture - Final, Complete 10/08/19 Aerobic Culture Result 1 (HEATHER) - Final, Complete 10/08/19 Gram Stain - Final, Complete 10/08/19 Gram Stain Result 1 (HEATHER) - Final, Complete 10/08/19 Gram Stain Result 2 (HEATHER) - Final, Complete Medications Current Medications Ondansetron HCl (Zofran) 4 mg PRN Q4HRS PRN IV NAUSEA/VOMITING; Start 10/08/19 at 16:30 Acetaminophen (Tylenol) 650 mg PRN Q4HRS PRN PO TEMP OVER 100.4F OR MILD PAIN Last administered on 10/20/19at 17:44; Start 10/08/19 at 16:30 Docusate Sodium (Colace) 100 mg PRN BID PRN PO CONSTIPATION; Start 10/08/19 at 16:30 Insulin Human Lispro (HumaLOG) 0-7 UNITS TIDACHC SQ Last administered on 10/16/19at 10:07; Start 10/08/19 at 21:00; Stop 10/17/19 at 08:52; Status DC Dextrose (Dextrose 50%-Water Syringe) 12.5 gm PRN Q15MIN PRN IV SEE COMMENTS Last administered on 10/22/19at 00:45; Start 10/08/19 at 17:00 Dextrose (Iv Dextrose 5%) 250 ml PRN Q15MIN PRN IV SEE COMMENTS; Start 10/08/19 at 17:00 Aspirin (Ecotrin) 81 mg [id number] PO Last administered on 10/18/19at 08:12; Start 10/09/19 at 08:00; Stop 10/18/19 at 18:13; Status DC Atorvastatin Calcium (Lipitor) 40 mg HS PO Last administered on 10/21/19 22:21; Start 10/08/19 at 21:00 Furosemide (Lasix) 80 mg BID94 PO Last administered on 10/10/19at 16:15; Start 10/08/19 at 18:00; Stop 10/15/19 at 13:33; Status DC Lactobacillus Rhamnosus (Culturelle) 1 cap BID PO Last administered on 10/21/19at 22:21; Start 10/08/19 at 21:00 Montelukast Sodium (Singulair) 10 mg HS PRN PO ALLERGIES; Start 10/08/19 at 17:00 Ondansetron HCl (Zofran Odt) 4 mg PRN Q6HRS PRN PO NAUSEA; Start 10/08/19 at 17:00; Stop 10/15/19 at 13:33; Status DC Tamsulosin HCl (Flomax) 0.4 mg HS PO Last administered on 10/21/19at 22:22; Start 10/08/19 at 21:00 Tramadol HCl (Ultram) 50 mg PRN Q6HRS PRN PO MODERATE PAIN; Start 10/08/19 at 17:00; Stop 10/12/19 at 11:56; Status DC Insulin Glargine (Lantus Syringe) 10 unit QHS SQ Last administered on 10/14/19at 22:14; Start 10/08/19 at 21:00; Stop 10/17/19 at 08:52; Status DC Losartan Potassium (Cozaar) 100 mg HS PO Last administered on 10/21/19at 22:22; Start 10/08/19 at 21:00 Pantoprazole Sodium (Protonix) 40 mg DAILYAC PO Last administered on 10/10/19at 10:10; Start 10/09/19 at 07:30; Stop 10/12/19 at 09:54; Status DC Sodium Chloride 500 ml @ 500 mls/hr 1X ONCE IV Last administered on 10/08/19at 20:00; Start 10/08/19 at 20:00; Stop 10/08/19 at 20:59; Status DC Calcium Acetate (Phoslo) 1,334 mg TIDWMEALS PO Last administered on 10/21/19at 18:39; Start 10/08/19 at 20:00 Vitamin A/Vitamin D (Vitamin A & D Ointment) 1 lucero PRN Q1HR PRN TP SKIN PROTECTION; Start 10/09/19 at 09:00 Doxycycline Hyclate (Vibra-Tab) 100 mg BID PO Last administered on 10/10/19at 10:08; Start 10/09/19 at 11:00; Stop 10/10/19 at 10:21; Status DC Fluconazole (Diflucan) 100 mg DAILY PO Last administered on 10/10/19at 10:08; Start 10/09/19 at 10:30; Stop 10/12/19 at 11:57; Status DC Amoxicillin/ Clavulanate Potassium (Augmentin 500/ 125mg) 1 tab DAILY PO Last administered on 10/10/19at 10:08; Start 10/09/19 at 10:30; Stop 10/10/19 at 10:21; Status DC Vancomycin HCl (Vanco Per Pharmacy) 1 each PRN DAILY PRN MC SEE COMMENTS Last administered on 10/11/19at 15:08; Start 10/10/19 at 10:30; Stop 10/12/19 at 11:56; Status DC Piperacillin Sod/ Tazobactam Sod 2.25 gm/Sodium Chloride 50 ml @ 100 mls/hr Q8HRS IV Last administered on 10/11/19at 22:06; Start 10/10/19 at 11:00; Stop 10/12/19 at 11:56; Status DC Vancomycin HCl 1.5 gm/Sodium Chloride 500 ml @ 250 mls/hr 1X ONCE IV Last administered on 10/10/19at 16:14; Start 10/10/19 at 11:00; Stop 10/10/19 at 12:59; Status DC Vancomycin HCl (Vancomycin Random Level) 1 each 1X ONCE MC Last administered on 10/12/19at 05:00; Start 10/12/19 at 05:00; Stop 10/12/19 at 05:01; Status DC Acetaminophen (Tylenol Supp) 650 mg PRN Q6HRS PRN NE MILD PAIN / TEMP Last administered on 10/17/19at 23:24; Start 10/12/19 at 06:00 Pantoprazole Sodium (PROTONIX VIAL for IV PUSH) 40 mg DAILYAC IVP Last administered on 10/18/19at 08:12; Start 10/12/19 at 10:00; Stop 10/18/19 at 09:53; Status DC Meropenem 500 mg/ Sodium Chloride 50 ml @ 100 mls/hr Q8HRS IV Last administered on 10/13/19at 06:00; Start 10/12/19 at 13:00; Stop 10/13/19 at 13:10; Status DC Micafungin Sodium 100 mg/Dextrose 100 ml @ 100 mls/hr Q24H IV Last administered on 10/16/19at 18:20; Start 10/12/19 at 12:00; Stop 10/17/19 at 11:38; Status DC Linezolid/Dextrose 300 ml @ 300 mls/hr Q12HR IV Last administered on 10/16/19at 08:46; Start 10/12/19 at 12:00; Stop 10/16/19 at 10:46; Status DC Amino Acids/ Electrolytes/ Dextrose 1,000 ml @ 80 mls/hr [id number] IV Last administered on 10/16/19at 22:27; Start 10/12/19 at 16:30; Stop 10/17/19 at 08:52; Status DC Heparin Sodium (Porcine) (Heparin Sodium) 5,000 unit Q8HRS SQ Last administered on 10/15/19at 06:26; Start 10/13/19 at 06:00; Stop 10/15/19 at 13:03; Status DC Insulin Human Lispro (HumaLOG) 21 units 1X ONCE SQ Last administered on 10/13/19at 09:26; Start 10/13/19 at 09:30; Stop 10/13/19 at 09:31; Status DC Insulin Human Lispro (HumaLOG) 4 units Q6HRS SQ Last administered on 10/17/19at 06:39; Start 10/13/19 at 12:00; Stop 10/17/19 at 08:52; Status DC Meropenem 500 mg/ Sodium Chloride 50 ml @ 100 mls/hr Q12HR IV Last administered on 10/17/19at 09:00; Start 10/13/19 at 21:00; Stop 10/17/19 at 11:38; Status DC Barium Sulfate (Varibar Thin Liquid Apple) 148 gm 1X ONCE PO ; Start 10/14/19 at 11:30; Stop 10/14/19 at 11:31; Status DC Barium Sulfate (Varibar Thin Liquid Apple) 148 gm 1X ONCE PO Last administered on 10/15/19at 11:10; Start 10/15/19 at 10:00; Stop 10/15/19 at 10:02; Status DC Darbepoetin Zaid (ARANESP for DIALYSIS PTS) 60 mcg WEEKLYHS SQ Last administered on 10/15/19at 23:41; Start 10/15/19 at 21:00 Lidocaine/ Epinephrine (LIDOCAINE 1%-EPI 1:100,000 Multi-Dose) 20 ml STK-MED ONCE .ROUTE ; Start 10/15/19 at 13:16; Stop 10/15/19 at 13:17; Status DC Furosemide (Lasix) 80 mg BID92 IVP Last administered on 10/18/19at 08:12; Start 10/15/19 at 14:00; Stop 10/19/19 at 09:17; Status DC Labetalol HCl (Normodyne Iv Push) 10 mg PRN Q2HR PRN IVP HYPERTENSION; Start 10/15/19 at 13:45 Ondansetron HCl (Zofran) 4 mg PRN Q6HRS PRN IV NAUSEA/VOMITING; Start 10/16/19 at 07:00; Stop 10/17/19 at 06:59; Status DC Fentanyl Citrate (Fentanyl 2ml Vial) 25 mcg PRN Q5MIN PRN IV MILD PAIN 1-3; Start 10/16/19 at 07:00; Stop 10/17/19 at 06:59; Status DC Fentanyl Citrate (Fentanyl 2ml Vial) 50 mcg PRN Q5MIN PRN IV MODERATE TO SEVERE PAIN; Start 10/16/19 at 07:00; Stop 10/17/19 at 06:59; Status DC Morphine Sulfate (Morphine Sulfate) 1 mg PRN Q10MIN PRN IV SEVERE PAIN 7-10; Start 10/16/19 at 07:00; Stop 10/17/19 at 06:59; Status DC Ringer's Solution 1,000 ml @ 30 mls/hr Q24H IV ; Start 10/16/19 at 07:00; Stop 10/16/19 at 18:59; Status DC Lidocaine HCl (Xylocaine-Mpf 1% 2ml Vial) 2 ml PRN 1X PRN ID PRIOR TO IV START; Start 10/16/19 at 07:00; Stop 10/17/19 at 06:59; Status DC Hydromorphone HCl (Dilaudid) 0.5 mg PRN Q10MIN PRN IV SEV PAIN, Second choice; Start 10/16/19 at 07:00; Stop 10/17/19 at 06:59; Status DC Prochlorperazine Edisylate (Compazine) 5 mg PACU PRN PRN IV NAUSEA, MRX1; Start 10/16/19 at 07:00; Stop 10/17/19 at 06:59; Status DC Lidocaine/ Epinephrine (LIDOCAINE 1%-EPI 1:100,000 Multi-Dose) 19 ml 1X ONCE INJ Last administered on 10/15/19at 14:54; Start 10/15/19 at 15:00; Stop 10/15/19 at 15:01; Status DC Sodium Chloride 1,000 ml @ 1,000 mls/hr Q1H PRN IV hypotension; Start 10/15/19 at 16:04; Stop 10/15/19 at 22:03; Status DC Acetaminophen (Tylenol) 500 mg 1X PRN PRN PO MILD PAIN / TEMP; Start 10/15/19 at 16:15; Stop 10/16/19 at 16:14; Status DC Diphenhydramine HCl (Benadryl) 25 mg 1X PRN PRN IV ITCHING; Start 10/15/19 at 16:15; Stop 10/16/19 at 16:14; Status DC Diphenhydramine HCl (Benadryl) 25 mg 1X PRN PRN IV ITCHING; Start 10/15/19 at 16:15; Stop 10/16/19 at 16:14; Status DC Sodium Chloride 1,000 ml @ 400 mls/hr Q2H30M PRN IV PATENCY; Start 10/15/19 at 16:04; Stop 10/16/19 at 04:03; Status DC Info (PHARMACY MONITORING -- do not chart) 1 each PRN DAILY PRN MC SEE COMMENTS; Start 10/15/19 at 16:15; Status Cancel Sodium Chloride 1,000 ml @ 1,000 mls/hr Q1H PRN IV hypotension; Start 10/16/19 at 10:40; Stop 10/16/19 at 16:39; Status DC Albumin Human 200 ml @ 200 mls/hr 1X PRN PRN IV Hypotension; Start 10/16/19 at 10:45; Stop 10/16/19 at 16:44; Status DC Sodium Chloride 1,000 ml @ 400 mls/hr Q2H30M PRN IV PATENCY; Start 10/16/19 at 10:40; Stop 10/16/19 at 22:39; Status DC Info (PHARMACY MONITORING -- do not chart) 1 each PRN DAILY PRN MC SEE COMMENTS; Start 10/16/19 at 10:45; Status UNV Info (PHARMACY MONITORING -- do not chart) 1 each PRN DAILY PRN MC SEE COMMENTS; Start 10/16/19 at 10:45; Status Cancel Sodium Chloride 1,000 ml @ 30 mls/hr Q24H IV Last administered on 10/17/19at 08:44; Start 10/16/19 at 14:45 Propofol 20 ml @ As Directed STK-MED ONCE IV ; Start 10/16/19 at 15:34; Stop 10/16/19 at 15:34; Status DC Dexamethasone Sodium Phosphate (Decadron) 4 mg STK-MED ONCE .ROUTE ; Start 10/16/19 at 15:34; Stop 10/16/19 at 15:34; Status DC Lidocaine HCl (Lidocaine Pf 2% Vial) 5 ml STK-MED ONCE .ROUTE ; Start 10/16/19 at 15:34; Stop 10/16/19 at 15:34; Status DC Ondansetron HCl (Zofran) 4 mg STK-MED ONCE .ROUTE ; Start 10/16/19 at 15:34; Stop 10/16/19 at 15:35; Status DC Rocuronium Bearden (Zemuron) 50 mg STK-MED ONCE .ROUTE ; Start 10/16/19 at 15:34; Stop 10/16/19 at 15:35; Status DC Bupivacaine HCl/ Epinephrine Bitart (Sensorcain-Epi 0.5%-1:[id number] Mpf) 30 ml STK-MED ONCE .ROUTE Last administered on 10/16/19at 16:15; Start 10/16/19 at 15:44; Stop 10/16/19 at 15:44; Status DC Ketamine HCl (Ketamine) 50 mg STK-MED ONCE .ROUTE ; Start 10/16/19 at 16:03; Stop 10/16/19 at 16:03; Status DC Midazolam HCl (Versed) 2 mg STK-MED ONCE .ROUTE ; Start 10/16/19 at 16:03; Stop 10/16/19 at 16:03; Status DC Sodium Chloride 1,000 ml @ 0 mls/hr Q0M IV ; Start 10/17/19 at 08:45; Status Cancel Propofol 20 ml @ As Directed STK-MED ONCE IV ; Start 10/17/19 at 08:49; Stop 10/17/19 at 08:49; Status DC Lidocaine HCl (Lidocaine Pf 2% Vial) 5 ml STK-MED ONCE .ROUTE ; Start 10/17/19 at 08:49; Stop 10/17/19 at 08:49; Status DC Insulin Glargine (Lantus Syringe) 25 unit QHS SQ Last administered on 10/17/19at 21:27; Start 10/17/19 at 09:00; Stop 10/18/19 at 08:51; Status DC Insulin Human Lispro (HumaLOG) 6 units Q6HRS SQ Last administered on 10/17/19at 12:22; Start 10/17/19 at 09:00; Stop 10/18/19 at 08:51; Status DC Insulin Human Lispro (HumaLOG) 0-9 UNITS TIDWMEALS SQ Last administered on 10/20/19at 13:03; Start 10/17/19 at 12:00; Stop 10/21/19 at 08:09; Status DC Dextrose (Dextrose 50%-Water Syringe) 12.5 gm PRN Q15MIN PRN IV SEE COMMENTS; Start 10/17/19 at 09:00; Status Cancel Dextrose (Iv Dextrose 5%) 250 ml PRN Q15MIN PRN IV SEE COMMENTS; Start 10/17/19 at 09:00; Status Cancel Sodium Chloride 1,000 ml @ 1,000 mls/hr Q1H PRN IV hypotension; Start 10/17/19 at 12:42; Stop 10/17/19 at 18:41; Status DC Sodium Chloride 1,000 ml @ 400 mls/hr Q2H30M PRN IV PATENCY; Start 10/17/19 at 12:42; Stop 10/18/19 at 00:41; Status DC Info (PHARMACY MONITORING -- do not chart) 1 each PRN DAILY PRN MC SEE COMMENTS; Start 10/17/19 at 12:45; Status UNV Info (PHARMACY MONITORING -- do not chart) 1 each PRN DAILY PRN MC SEE COMMENTS; Start 10/17/19 at 12:45; Status UNV Insulin Glargine (Lantus Syringe) 18 unit QHS SQ ; Start 10/18/19 at 21:00; Stop 10/18/19 at 11:42; Status DC Lansoprazole (Prevacid) 30 mg DAILY FT Last administered on 10/21/19at 09:35; Start 10/19/19 at 09:00 Dextrose/Sodium Chloride 1,000 ml @ 75 mls/hr 1X ONCE IV Last administered on 10/18/19at 12:15; Start 10/18/19 at 11:45; Stop 10/19/19 at 01:04; Status DC Aspirin (Ecotrin) 325 mg DAILYWBKFT PO Last administered on 10/21/19at 09:35; Start 10/19/19 at 08:00 Dextrose/Sodium Chloride 1,000 ml @ 75 mls/hr 1X ONCE IV Last administered on 10/19/19at 04:00; Start 10/19/19 at 04:00; Stop 10/19/19 at 17:19; Status DC Iodixanol (Visipaque 320) 100 ml STK-MED ONCE .ROUTE ; Start 10/19/19 at 08:08; Stop 10/19/19 at 08:09; Status DC Lidocaine HCl (Buffered Lidocaine 1%) 3 ml STK-MED ONCE .ROUTE ; Start 10/19/19 at 08:09; Stop 10/19/19 at 08:09; Status DC Heparin Sodium/ Sodium Chloride 1,500 ml @ As Directed STK-MED ONCE .ROUTE ; Start 10/19/19 at 08:09; Stop 10/19/19 at 08:09; Status DC Iodixanol (Visipaque 320) 100 ml STK-MED ONCE .ROUTE ; Start 10/19/19 at 08:09; Stop 10/19/19 at 08:09; Status DC Sodium Chloride 1,000 ml @ 1,000 mls/hr Q1H PRN IV hypotension; Start 10/19/19 at 08:24; Stop 10/19/19 at 14:23; Status DC Sodium Chloride 1,000 ml @ 400 mls/hr Q2H30M PRN IV PATENCY; Start 10/19/19 at 08:24; Stop 10/19/19 at 20:23; Status DC Info (PHARMACY MONITORING -- do not chart) 1 each PRN DAILY PRN MC SEE COMMENTS; Start 10/19/19 at 08:30; Status Cancel Info (PHARMACY MONITORING -- do not chart) 1 each PRN DAILY PRN MC SEE COMMENTS; Start 10/19/19 at 08:30 Midazolam HCl (Versed) 5 mg STK-MED ONCE .ROUTE ; Start 10/19/19 at 08:39; Stop 10/19/19 at 08:40; Status DC Fentanyl Citrate (Fentanyl 5ml Vial) 250 mcg STK-MED ONCE .ROUTE ; Start 10/19/19 at 08:39; Stop 10/19/19 at 08:40; Status DC Dextrose (Dextrose 50%-Water Syringe) 25 gm STK-MED ONCE IV ; Start 10/19/19 at 08:42; Stop 10/19/19 at 08:43; Status DC Heparin Sodium (Porcine) (Heparin Sodium) 10,000 unit STK-MED ONCE .ROUTE ; Start 10/19/19 at 09:11; Stop 10/19/19 at 09:12; Status DC Dextrose/Sodium Chloride 1,000 ml @ 75 mls/hr [id number] IV Last administered on 10/20/19at 13:00; Start 10/19/19 at 09:30; Stop 10/20/19 at 16:17; Status DC Furosemide (Lasix) 40 mg [id number] IVP Last administered on 10/21/19at 14:55; Start 10/19/19 at 09:30 Heparin Sodium/ Sodium Chloride (HEPARIN for ARTERIAL LINE FLUSH) 1,000 unit 1X ONCE IART Last administered on 10/19/19at 09:30; Start 10/19/19 at 09:30; Stop 10/19/19 at 09:31; Status DC Heparin Sodium/ Sodium Chloride (HEPARIN for ARTERIAL LINE FLUSH) 1,000 unit 1X ONCE IART Last administered on 10/19/19at 09:30; Start 10/19/19 at 09:30; Stop 10/19/19 at 09:31; Status DC Lidocaine HCl (Buffered Lidocaine 1%) 3 ml 1X ONCE IJ Last administered on 10/19/19at 09:30; Start 10/19/19 at 09:30; Stop 10/19/19 at 09:31; Status DC Midazolam HCl (Versed) 5 mg 1X ONCE IV Last administered on 10/19/19at 09:30; Start 10/19/19 at 09:30; Stop 10/19/19 at 09:31; Status DC Fentanyl Citrate (Fentanyl 5ml Vial) 250 mcg 1X ONCE IV Last administered on 10/19/19at 09:30; Start 10/19/19 at 09:30; Stop 10/19/19 at 09:31; Status DC Iodixanol (Visipaque 320) 100 ml 1X ONCE IART Last administered on 10/19/19at 09:30; Start 10/19/19 at 09:30; Stop 10/19/19 at 09:31; Status DC Midazolam HCl (Versed) 2 mg STK-MED ONCE .ROUTE ; Start 10/19/19 at 09:57; Stop 10/19/19 at 09:57; Status DC Ketamine HCl (Ketamine) 50 mg STK-MED ONCE .ROUTE ; Start 10/19/19 at 09:57; Stop 10/19/19 at 09:57; Status DC Propofol 20 ml @ As Directed STK-MED ONCE IV ; Start 10/19/19 at 09:57; Stop 10/19/19 at 09:57; Status DC Iodixanol (Visipaque 320) 100 ml STK-MED ONCE .ROUTE ; Start 10/19/19 at 10:27; Stop 10/19/19 at 10:27; Status DC Heparin Sodium (Porcine) (Heparin Sodium) 5,000 unit 1X ONCE IV Last administered on 10/19/19at 10:50; Start 10/19/19 at 11:00; Stop 10/19/19 at 11:01; Status DC Fentanyl Citrate (Fentanyl 2ml Vial) 100 mcg STK-MED ONCE .ROUTE ; Start 10/19/19 at 11:37; Stop 10/19/19 at 11:37; Status DC Fentanyl Citrate (Fentanyl 2ml Vial) 100 mcg 1X ONCE IVP Last administered on 10/19/19at 11:42; Start 10/19/19 at 11:45; Stop 10/19/19 at 11:46; Status DC Propofol (Diprivan) 200 mg STK-MED ONCE IV ; Start 10/19/19 at 10:00; Stop 10/19/19 at 13:05; Status DC Metoprolol Tartrate (Lopressor) 25 mg BID PO Last administered on 10/21/19at 22:22; Start 10/19/19 at 21:00 Digoxin (Lanoxin) 250 mcg 1X ONCE IV ; Start 10/19/19 at 14:15; Stop 10/19/19 at 14:16; Status Cancel Insulin Human Lispro (HumaLOG) 0-9 UNITS Q6HRS SQ Last administered on 10/21/19at 13:51; Start 10/21/19 at 08:15 Active Scripts Active Humalog (Insulin Lispro) 100 Unit/1 Ml Insuln.pen 6 Units SQ Q6HRS 30 Days Lantus (Insulin Glargine,Hum.rec.anlog) 100 Unit/1 Ml Vial 25 Unit SQ QHS 30 Days Tramadol Hcl 50 Mg Tablet 50 Mg PO PRN Q6HRS PRN 3 Days Culturelle (Lactobacillus Rhamnosus Gg) 1 Each Cap.sprink 1 Cap PO BID 7 Days Aspirin Ec (Aspirin) 81 Mg Tablet.dr 81 Mg PO DAILYWBKFT Reported Glyburide 5 Mg Tablet 5 Mg PO DAILY Omeprazole 20 Mg Tablet.dr 20 Mg PO DAILY Calcitriol 0.5 Mcg Capsule 0.5 Mcg PO DAILY Furosemide 80 Mg Tablet 80 Mg PO BID Tamsulosin Hcl 0.4 Mg Cap.er.24h 1 Cap PO HS Montelukast Sodium Tablet (Montelukast Sodium) 10 Mg Tablet 1 Tab PO HS PRN Ondansetron Odt (Ondansetron) 4 Mg Tab.rapdis 1 Tab PO PRN Q6-8HRS PRN Cozaar (Losartan Potassium) 100 Mg Tablet 100 Mg PO HS Carvedilol 25 Mg Tablet 25 Mg PO BIDWMEALS Atorvastatin Calcium 40 Mg Tablet 40 Mg PO HS Vitals/I & O Vital Sign - Last 24 Hours 10/21/19 10/21/19 10/21/19 10/21/19 09:30 09:36 11:00 15:35 Temp 97.7 97.7 97.7 97.7 Pulse 99 94 79 Resp 18 20 B/P (MAP) 139/49 166/42 (83) 127/54 (78) Pulse Ox 98 93 O2 Delivery Nasal Cannula Room Air Nasal Cannula O2 Flow Rate 3.0 3.0 10/21/19 10/21/19 10/21/19 10/21/19 19:30 20:00 22:22 22:22 Temp 97.4 97.4 Pulse 87 87 87 Resp 18 B/P (MAP) 146/47 (80) 146/47 146/47 Pulse Ox 97 O2 Delivery Nasal Cannula Nasal Cannula O2 Flow Rate 3.0 3.0 10/22/19 10/22/19 10/22/19 00:30 05:00 07:59 Temp 96.3 97.6 96.3 97.6 Pulse 87 90 89 Resp 22 20 18 B/P (MAP) 159/84 (109) 124/90 (101) 146/78 (100) Pulse Ox 97 94 99 O2 Delivery Nasal Cannula Nasal Cannula Nasal Cannula O2 Flow Rate 3.0 3.0 3.0 Intake and Output 10/21/19 10/21/19 10/22/19 15:00 23:00 07:00 Intake Total 0 ml 640 ml Balance 0 ml 640 ml Nutrition Consultation Dietary Evaluation: Recommendations by RD: Dietary education by RD Comments: REC continue TF as ordered REC mvi and vit c per wound protocal due to multiple skin breakdown areas - See wound assessment Expected Outcomes/Goals: to meet >75% est nutr needs via TF Interpretation of weight loss: >5% in 1 month Malnutrition Findings: Food and Nutrition Intake (Sev: <50% est energy req 5days Body Fat Depletion (Non Severe: Mild Depletion Weight Status: Underweight Hemodynamically unstable?: No Is patient in severe pain?: No Is NPO status required?: Yes JOSE SOLANO MD Oct 22, 2019 08:34
--- NOTE | 2019-10-22 08:56 | PDOC ---
Provider Note Provider Note Vascular S: Patient seen and examined in room. He is without complaints. O: Awake and alert VSS, afebrile HRR Non-labored respirations 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 Few areas of dry gangrenous tissue on plantar surface in toe creases. Left femoral access site dressing dry and intact, no hematoma or swelling Angiogram: IMPRESSION: 1. Diffuse atherosclerotic vascular disease without hemodynamically significant aortoiliac stenosis. 2. 70% stenosis of the right popliteal artery treated with balloon angioplasty 3. Areas of stenosis within the anterior tibial and posterior tibial artery treated with balloon angioplasty 4. Unfortunately no significant reconstitution of the dorsalis pedis or lateral plantar artery is seen, and despite more proximal revascularization, blood flow to the midfoot beyond remains poor. 5. Moderate stenosis proximal left SFA. Moderate stenosis distal SFA. High-grade stenosis left popliteal artery. Occlusion of the posterior tibial artery. High-grade stenosis at the origin of the anterior tibial artery, which appears to be the dominant blood supply to the foot. Multiple moderate narrowings of the posterior tibial artery appear to be present. Dedicated left lower extremity angiography may be helpful. A/P: Peripheral vascular disease with bilateral toe gangrene. End-stage renal disease on dialysis Diabetes mellitus Continue observation to allow demarcation. No plans to bypass right leg. Continue to observe left foot digits. May need percutaneous intervention left leg. Recommend protective measures with rooke boot bilaterally. Follow up in office as scheduled. LUIS MCFARLAND APRN Oct 22, 2019 08:56
[2019-10-22] MEDS: FUROSEMIDE 40 MG/4 ML VIAL. IVP SCH ×2 (09:00→15:13)
[2019-10-22] MEDS ORDERED: IV NORMAL SALINE 1000ML BAG 1,000 ML IV PRN ×2 (10:44)
[2019-10-22] MEDS ORDERED: DIALYSIS PATIENT. MC PRN ×2 (10:45)
[2019-10-22] MEDS ORDERED: 0.9 % SODIUM CHLORIDE 10 ML DISP.SYRIN. IV PRN ×2 (10:45)
[2019-10-22 11:00] VITALS: BP 138/84
--- NOTE | 2019-10-22 12:05 | PDOC ---
Subjective: Subjective: Denies pain. Objective: Objective: Nurse says feeds held for 60cc residual. Vital Signs: Vital Signs Date Time Temp Pulse Resp B/P (MAP) Pulse Ox O2 Delivery O2 Flow Rate FiO2 10/22/19 11:00 98.0 70 18 138/84 (102) 92 Nasal Cannula 3.0 98.0 Labs: Laboratory Tests Test 10/21/19 13:12 10/21/19 17:56 10/22/19 00:00 10/22/19 00:03 Glucose (Fingerstick) 306 mg/dL 91 mg/dL 17 mg/dL 20 mg/dL Test 10/22/19 00:21 10/22/19 00:28 10/22/19 00:52 10/22/19 01:12 Glucose (Fingerstick) 16 mg/dL 30 mg/dL 124 mg/dL Glucose Level 117 mg/dL Test 10/22/19 01:13 10/22/19 06:11 Glucose (Fingerstick) 130 mg/dL 185 mg/dL PE: GEN: NAD LUNGS: CTAB HEART: RRR ABD: soft, quiet BS, PEG in place - site looks good NEURO/PSYCH: drowsy A/P: Dysphagia s/p PEG ESRD, DM/hypoglycemia, PVD w/ gangrenous toes -- ?tube feed residual - could consider KUB. Hemodynamically unstable?: No Is patient in severe pain?: No Is NPO status required?: Yes PADILLA HONG Oct 22, 2019 12:05
--- NOTE | 2019-10-22 12:07 | PDOC ---
PROGRESS NOTES Assessment Metabolic encephalopathy. Dementia features. Dysphagia, no evidence of neuromuscular junction disease. Leukocytosis. Diabetic ketoacidosis. Hyperglycemia. Hypoglycemia. Chronic balanitis. End-stage renal disease on dialysis Anemia of chronic disease. HTN. HLD. AFib, never on treatment. COPD. CAD, s/p [place]. Right bit toe wound. Plan Treat medical diseases. Rehab Discussed with his parents Subjective no complaints Objective Vital Signs Date Time Temp Pulse Resp B/P (MAP) Pulse Ox O2 Delivery O2 Flow Rate FiO2 10/22/19 11:00 98.0 70 18 138/84 (102) 92 Nasal Cannula 3.0 98.0 Intake and Output 10/22/19 07:00 Intake Total 640 ml Balance 640 ml Intake Oral 0 ml Tube Feeding 440 ml Blood Product IV Normal Saline Flush 200 ml # Voids 3 # Bowel Movements 3 PHYSICAL EXAM Alert. Oriented to place and person. PERRL. EOMI. CN: no focal findings. Muscle tone: normal. Muscle strength: 4/5 DTR: 1+ Plantar reflex: flexor Gait: not examined in bed. Sensory exam: no abnormal findings. No cerebellar signs elicited. Review of Relevant I have reviewed the following items alex (where applicable) has been applied. Labs Laboratory Tests Test 10/20/19 12:54 10/20/19 16:18 10/20/19 21:14 10/21/19 08:13 Glucose (Fingerstick) 298 mg/dL (70-99) 123 mg/dL (70-99) 76 mg/dL (70-99) 353 mg/dL (70-99) Test 10/21/19 10:15 10/21/19 13:12 10/21/19 17:56 10/22/19 00:00 White Blood Count 8.9 x10^3/uL (4.0-11.0) Red Blood Count 2.71 x10^6/uL (4.30-5.70) Hemoglobin 8.1 g/dL (13.0-17.5) Hematocrit 24.9 % (39.0-53.0) Mean Corpuscular Volume 92 fL (79-100) Mean Corpuscular Hemoglobin 30 pg (25-35) Mean Corpuscular Hemoglobin Concent 33 g/dL (31-37) Red Cell Distribution Width 17.5 % (11.5-14.5) Platelet Count 244 x10^3/uL (140-400) Neutrophils (%) (Auto) 86 % (31-73) Lymphocytes (%) (Auto) 7 % (24-48) Monocytes (%) (Auto) 6 % (0-9) Eosinophils (%) (Auto) 0 % (0-3) Basophils (%) (Auto) 1 % (0-3) Neutrophils # (Auto) 7.7 x10^3/uL (1.8-7.7) Lymphocytes # (Auto) 0.6 x10^3/uL (1.0-4.8) Monocytes # (Auto) 0.6 x10^3/uL (0.0-1.1) Eosinophils # (Auto) 0.0 x10^3/uL (0.0-0.7) Basophils # (Auto) 0.1 x10^3/uL (0.0-0.2) Segmented Neutrophils % 88 % (35-66) Band Neutrophils % 4 % (0-9) Lymphocytes % 6 % (24-48) Monocytes % 1 % (0-10) Basophils % 1 % (0-3) Platelet Estimate Adequate (ADEQUATE) Anisocytosis Present Sodium Level 131 mmol/L (136-145) Potassium Level 4.1 mmol/L (3.5-5.1) Chloride Level 94 mmol/L (98-107) Carbon Dioxide Level 25 mmol/L (21-32) Anion Gap 12 (6-14) Blood Urea Nitrogen 25 mg/dL (8-26) Creatinine 3.5 mg/dL (0.7-1.3) Estimated GFR (Cockcroft-Gault) 18.3 Glucose Level 412 mg/dL (70-99) Calcium Level 8.4 mg/dL (8.5-10.1) Glucose (Fingerstick) 306 mg/dL (70-99) 91 mg/dL (70-99) 17 mg/dL (70-99) Test 10/22/19 00:03 10/22/19 00:21 10/22/19 00:28 10/22/19 00:52 Glucose (Fingerstick) 20 mg/dL (70-99) 16 mg/dL (70-99) 30 mg/dL (70-99) Glucose Level 117 mg/dL (70-99) Test 10/22/19 01:12 10/22/19 01:13 10/22/19 06:11 Glucose (Fingerstick) 124 mg/dL (70-99) 130 mg/dL (70-99) 185 mg/dL (70-99) Laboratory Tests Test 10/21/19 13:12 10/21/19 17:56 10/22/19 00:00 10/22/19 00:03 Glucose (Fingerstick) 306 mg/dL (70-99) 91 mg/dL (70-99) 17 mg/dL (70-99) 20 mg/dL (70-99) Test 10/22/19 00:21 10/22/19 00:28 10/22/19 00:52 10/22/19 01:12 Glucose (Fingerstick) 16 mg/dL (70-99) 30 mg/dL (70-99) 124 mg/dL (70-99) Glucose Level 117 mg/dL (70-99) Test 10/22/19 01:13 10/22/19 06:11 Glucose (Fingerstick) 130 mg/dL (70-99) 185 mg/dL (70-99) Microbiology 10/12/19 Blood Culture - Final, Complete NO GROWTH AFTER 5 DAYS 10/08/19 Aerobic Culture - Final, Complete 10/08/19 Aerobic Culture Result 1 (HEATHER) - Final, Complete 10/08/19 Gram Stain - Final, Complete 10/08/19 Gram Stain Result 1 (HEATHER) - Final, Complete 10/08/19 Gram Stain Result 2 (HEATHER) - Final, Complete Medications Current Medications Ondansetron HCl (Zofran) 4 mg PRN Q4HRS PRN IV NAUSEA/VOMITING; Start 10/08/19 at 16:30 Acetaminophen (Tylenol) 650 mg PRN Q4HRS PRN PO TEMP OVER 100.4F OR MILD PAIN Last administered on 10/20/19at 17:44; Start 10/08/19 at 16:30 Docusate Sodium (Colace) 100 mg PRN BID PRN PO CONSTIPATION; Start 10/08/19 at 16:30 Insulin Human Lispro (HumaLOG) 0-7 UNITS TIDACHC SQ Last administered on at 10:07; Start 10/08/19 at 21:00; Stop 10/17/19 at 08:52; Status DC Dextrose (Dextrose 50%-Water Syringe) 12.5 gm PRN Q15MIN PRN IV SEE COMMENTS Last administered on 10/22/19at 00:45; Start 10/08/19 at 17:00 Dextrose (Iv Dextrose 5%) 250 ml PRN Q15MIN PRN IV SEE COMMENTS; Start 10/08/19 at 17:00 Aspirin (Ecotrin) 81 mg DAILYWBKFT PO Last administered on 10/18/19at 08:12; Start 10/09/19 at 08:00; Stop 10/18/19 at 18:13; Status DC Atorvastatin Calcium (Lipitor) 40 mg HS PO Last administered on 10/21/19 22:21; Start 10/08/19 at 21:00 Furosemide (Lasix) 80 mg [id number] PO Last administered on 10/10/19at 16:15; Start 10/08/19 at 18:00; Stop 10/15/19 at 13:33; Status DC Lactobacillus Rhamnosus (Culturelle) 1 cap BID PO Last administered on 10/21/19 22:21; Start 10/08/19 at 21:00 Montelukast Sodium (Singulair) 10 mg HS PRN PO ALLERGIES; Start 10/08/19 at 17:00 Ondansetron HCl (Zofran Odt) 4 mg PRN Q6HRS PRN PO NAUSEA; Start 10/08/19 at 17:00; Stop 10/15/19 at 13:33; Status DC Tamsulosin HCl (Flomax) 0.4 mg HS PO Last administered on 10/21/19 22:22; Start 10/08/19 at 21:00 Tramadol HCl (Ultram) 50 mg PRN Q6HRS PRN PO MODERATE PAIN; Start 10/08/19 at 17:00; Stop 10/12/19 at 11:56; Status DC Insulin Glargine (Lantus Syringe) 10 unit QHS SQ Last administered on 10/14/19at 22:14; Start 10/08/19 at 21:00; Stop 10/17/19 at 08:52; Status DC Losartan Potassium (Cozaar) 100 mg HS PO Last administered on 10/21/19 22:22; Start 10/08/19 at 21:00 Pantoprazole Sodium (Protonix) 40 mg DAILYAC PO Last administered on 10/10/19at 10:10; Start 10/09/19 at 07:30; Stop 10/12/19 at 09:54; Status DC Sodium Chloride 500 ml @ 500 mls/hr 1X ONCE IV Last administered on 10/08/19at 20:00; Start 10/08/19 at 20:00; Stop 10/08/19 at 20:59; Status DC Calcium Acetate (Phoslo) 1,334 mg TIDWMEALS PO Last administered on 10/21/19at 18:39; Start 10/08/19 at 20:00 Vitamin A/Vitamin D (Vitamin A & D Ointment) 1 lucero PRN Q1HR PRN TP SKIN PROTECTION; Start 10/09/19 at 09:00 Doxycycline Hyclate (Vibra-Tab) 100 mg BID PO Last administered on 10/10/19at 10:08; Start 10/09/19 at 11:00; Stop 10/10/19 at 10:21; Status DC Fluconazole (Diflucan) 100 mg DAILY PO Last administered on 10/10/19at 10:08; Start 10/09/19 at 10:30; Stop 10/12/19 at 11:57; Status DC Amoxicillin/ Clavulanate Potassium (Augmentin 500/ 125mg) 1 tab DAILY PO Last administered on 10/10/19at 10:08; Start 10/09/19 at 10:30; Stop 10/10/19 at 10:21; Status DC Vancomycin HCl (Vanco Per Pharmacy) 1 each PRN DAILY PRN MC SEE COMMENTS Last administered on 10/11/19at 15:08; Start 10/10/19 at 10:30; Stop 10/12/19 at 11:56; Status DC Piperacillin Sod/ Tazobactam Sod 2.25 gm/Sodium Chloride 50 ml @ 100 mls/hr Q8HRS IV Last administered on 10/11/19at 22:06; Start 10/10/19 at 11:00; Stop 10/12/19 at 11:56; Status DC Vancomycin HCl 1.5 gm/Sodium Chloride 500 ml @ 250 mls/hr 1X ONCE IV Last administered on 10/10/19at 16:14; Start 10/10/19 at 11:00; Stop 10/10/19 at 12:59 ; Status DC Vancomycin HCl (Vancomycin Random Level) 1 each 1X ONCE MC Last administered on 10/12/19at 05:00; Start 10/12/19 at 05:00; Stop 10/12/19 at 05:01; Status DC Acetaminophen (Tylenol Supp) 650 mg PRN Q6HRS PRN RI MILD PAIN / TEMP Last administered on 10/17/19at 23:24; Start 10/12/19 at 06:00 Pantoprazole Sodium (PROTONIX VIAL for IV PUSH) 40 mg DAILYAC IVP Last adminis tered on 10/18/19at 08:12; Start 10/12/19 at 10:00; Stop 10/18/19 at 09:53; Status DC Meropenem 500 mg/ Sodium Chloride 50 ml @ 100 mls/hr Q8HRS IV Last administered on 10/13/19at 06:00; Start 10/12/19 at 13:00; Stop 10/13/19 at 13:10; Status DC Micafungin Sodium 100 mg/Dextrose 100 ml @ 100 mls/hr Q24H IV Last administered on 10/16/19at 18:20; Start 10/12/19 at 12:00; Stop 10/17/19 at 11:38; Status DC Linezolid/Dextrose 300 ml @ 300 mls/hr Q12HR IV Last administered on 10/16/19at 08:46; Start 10/12/19 at 12:00; Stop 10/16/19 at 10:46; Status DC Amino Acids/ Electrolytes/ Dextrose 1,000 ml @ 80 mls/hr [id number] IV Last administered on 10/16/19at 22:27; Start 10/12/19 at 16:30; Stop 10/17/19 at 08:52; Status DC Heparin Sodium (Porcine) (Heparin Sodium) 5,000 unit Q8HRS SQ Last administered on 10/15/19at 06:26; Start 10/13/19 at 06:00; Stop 10/15/19 at 13:03; Status DC Insulin Human Lispro (HumaLOG) 21 units 1X ONCE SQ Last administered on 10/13/19at 09:26; Start 10/13/19 at 09:30; Stop 10/13/19 at 09:31; Status DC Insulin Human Lispro (HumaLOG) 4 units Q6HRS SQ Last administered on 10/17/19at 06:39; Start 10/13/19 at 12:00; Stop 10/17/19 at 08:52; Status DC Meropenem 500 mg/ Sodium Chloride 50 ml @ 100 mls/hr Q12HR IV Last administered on 10/17/19at 09:00; Start 10/13/19 at 21:00; Stop 10/17/19 at 11:38; Status DC Barium Sulfate (Varibar Thin Liquid Apple) 148 gm 1X ONCE PO ; Start 10/14/19 at 11:30; Stop 10/14/19 at 11:31; Status DC Barium Sulfate (Varibar Thin Liquid Apple) 148 gm 1X ONCE PO Last administered on 10/15/19at 11:10; Start 10/15/19 at 10:00; Stop 10/15/19 at 10:02; Status DC Darbepoetin Zaid (ARANESP for DIALYSIS PTS) 60 mcg WEEKLYHS SQ Last administered on 10/15/19at 23:41; Start 10/15/19 at 21:00 Lidocaine/ Epinephrine (LIDOCAINE 1%-EPI 1:100,000 Multi-Dose) 20 ml STK-MED ONCE .ROUTE ; Start 10/15/19 at 13:16; Stop 10/15/19 at 13:17; Status DC Furosemide (Lasix) 80 mg BID92 IVP Last administered on 10/18/19at 08:12; Start 10/15/19 at 14:00; Stop 10/19/19 at 09:17; Status DC Labetalol HCl (Normodyne Iv Push) 10 mg PRN Q2HR PRN IVP HYPERTENSION; Start 10/15/19 at 13:45 Ondansetron HCl (Zofran) 4 mg PRN Q6HRS PRN IV NAUSEA/VOMITING; Start 10/16/19 at 07:00; Stop 10/17/19 at 06:59; Status DC Fentanyl Citrate (Fentanyl 2ml Vial) 25 mcg PRN Q5MIN PRN IV MILD PAIN 1-3; Start 10/16/19 at 07:00; Stop 10/17/19 at 06:59; Status DC Fentanyl Citrate (Fentanyl 2ml Vial) 50 mcg PRN Q5MIN PRN IV MODERATE TO SEVERE PAIN; Start 10/16/19 at 07:00; Stop 10/17/19 at 06:59; Status DC Morphine Sulfate (Morphine Sulfate) 1 mg PRN Q10MIN PRN IV SEVERE PAIN 7-10; Start 10/16/19 at 07:00; Stop 10/17/19 at 06:59; Status DC Ringer's Solution 1,000 ml @ 30 mls/hr Q24H IV ; Start 10/16/19 at 07:00; Stop 10/16/19 at 18:59; Status DC Lidocaine HCl (Xylocaine-Mpf 1% 2ml Vial) 2 ml PRN 1X PRN ID PRIOR TO IV START; Start 10/16/19 at 07:00; Stop 10/17/19 at 06:59; Status DC Hydromorphone HCl (Dilaudid) 0.5 mg PRN Q10MIN PRN IV SEV PAIN, Second choice; Start 10/16/19 at 07:00; Stop 10/17/19 at 06:59; Status DC Prochlorperazine Edisylate (Compazine) 5 mg PACU PRN PRN IV NAUSEA, MRX1; Start 10/16/19 at 07:00; Stop 10/17/19 at 06:59; Status DC Lidocaine/ Epinephrine (LIDOCAINE 1%-EPI 1:100,000 Multi-Dose) 19 ml 1X ONCE INJ Last administered on 10/15/19at 14:54; Start 10/15/19 at 15:00; Stop 10/15/19 at 15:01; Status DC Sodium Chloride 1,000 ml @ 1,000 mls/hr Q1H PRN IV hypotension; Start 10/15/19 at 16:04; Stop 10/15/19 at 22:03; Status DC Acetaminophen (Tylenol) 500 mg 1X PRN PRN PO MILD PAIN / TEMP; Start 10/15/19 at 16:15; Stop 10/16/19 at 16:14; Status DC Diphenhydramine HCl (Benadryl) 25 mg 1X PRN PRN IV ITCHING; Start 10/15/19 at 16:15; Stop 10/16/19 at 16:14; Status DC Diphenhydramine HCl (Benadryl) 25 mg 1X PRN PRN IV ITCHING; Start 10/15/19 at 16:15; Stop 10/16/19 at 16:14; Status DC Sodium Chloride 1,000 ml @ 400 mls/hr Q2H30M PRN IV PATENCY; Start 10/15/19 at 16:04; Stop 10/16/19 at 04:03; Status DC Info (PHARMACY MONITORING -- do not chart) 1 each PRN DAILY PRN MC SEE COMMENTS; Start 10/15/19 at 16:15; Status Cancel Sodium Chloride 1,000 ml @ 1,000 mls/hr Q1H PRN IV hypotension; Start 10/16/19 at 10:40; Stop 10/16/19 at 16:39; Status DC Albumin Human 200 ml @ 200 mls/hr 1X PRN PRN IV Hypotension; Start 10/16/19 at 10:45; Stop 10/16/19 at 16:44; Status DC Sodium Chloride 1,000 ml @ 400 mls/hr Q2H30M PRN IV PATENCY; Start 10/16/19 at 10:40; Stop 10/16/19 at 22:39; Status DC Info (PHARMACY MONITORING -- do not chart) 1 each PRN DAILY PRN MC SEE COMMENTS; Start 10/16/19 at 10:45; Status UNV Info (PHARMACY MONITORING -- do not chart) 1 each PRN DAILY PRN MC SEE COMMENTS; Start 10/16/19 at 10:45; Status Cancel Sodium Chloride 1,000 ml @ 30 mls/hr Q24H IV Last administered on 10/17/19at 08:44; Start 10/16/19 at 14:45 Propofol 20 ml @ As Directed STK-MED ONCE IV ; Start 10/16/19 at 15:34; Stop 10/16/19 at 15:34; Status DC Dexamethasone Sodium Phosphate (Decadron) 4 mg STK-MED ONCE .ROUTE ; Start 10/16/19 at 15:34; Stop 10/16/19 at 15:34; Status DC Lidocaine HCl (Lidocaine Pf 2% Vial) 5 ml STK-MED ONCE .ROUTE ; Start 10/16/19 at 15:34; Stop 10/16/19 at 15:34; Status DC Ondansetron HCl (Zofran) 4 mg STK-MED ONCE .ROUTE ; Start 10/16/19 at 15:34; Stop 10/16/19 at 15:35; Status DC Rocuronium [place] (Zemuron) 50 mg STK-MED ONCE .ROUTE ; Start 10/16/19 at 15:34; Stop 10/16/19 at 15:35; Status DC Bupivacaine HCl/ Epinephrine Bitart (Sensorcain-Epi 0.5%-1:[id number] Mpf) 30 ml STK-MED ONCE .ROUTE Last administered on 10/16/19at 16:15; Start 10/16/19 at 15:44; Stop 10/16/19 at 15:44; Status DC Ketamine HCl (Ketamine) 50 mg STK-MED ONCE .ROUTE ; Start 10/16/19 at 16:03; Stop 10/16/19 at 16:03; Status DC Midazolam HCl (Versed) 2 mg STK-MED ONCE .ROUTE ; Start 10/16/19 at 16:03; Stop 10/16/19 at 16:03; Status DC Sodium Chloride 1,000 ml @ 0 mls/hr Q0M IV ; Start 10/17/19 at 08:45; Status Cancel Propofol 20 ml @ As Directed STK-MED ONCE IV ; Start 10/17/19 at 08:49; Stop 10/17/19 at 08:49; Status DC Lidocaine HCl (Lidocaine Pf 2% Vial) 5 ml STK-MED ONCE .ROUTE ; Start 10/17/19 at 08:49; Stop 10/17/19 at 08:49; Status DC Insulin Glargine (Lantus Syringe) 25 unit QHS SQ Last administered on 10/17/19at 21:27; Start 10/17/19 at 09:00; Stop 10/18/19 at 08:51; Status DC Insulin Human Lispro (HumaLOG) 6 units Q6HRS SQ Last administered on 10/17/19at 12:22; Start 10/17/19 at 09:00; Stop 10/18/19 at 08:51; Status DC Insulin Human Lispro (HumaLOG) 0-9 UNITS TIDWMEALS SQ Last administered on 10/20/19at 13:03; Start 10/17/19 at 12:00; Stop 10/21/19 at 08:09; Status DC Dextrose (Dextrose 50%-Water Syringe) 12.5 gm PRN Q15MIN PRN IV SEE COMMENTS; Start 10/17/19 at 09:00; Status Cancel Dextrose (Iv Dextrose 5%) 250 ml PRN Q15MIN PRN IV SEE COMMENTS; Start 10/17/19 at 09:00; Status Cancel Sodium Chloride 1,000 ml @ 1,000 mls/hr Q1H PRN IV hypotension; Start 10/17/19 at 12:42; Stop 10/17/19 at 18:41; Status DC Sodium Chloride 1,000 ml @ 400 mls/hr Q2H30M PRN IV PATENCY; Start 10/17/19 at 12:42; Stop 10/18/19 at 00:41; Status DC Info (PHARMACY MONITORING -- do not chart) 1 each PRN DAILY PRN MC SEE [place] TS; Start 10/17/19 at 12:45; Status UNV Info (PHARMACY MONITORING -- do not chart) 1 each PRN DAILY PRN MC SEE COMMENTS; Start 10/17/19 at 12:45; Status UNV Insulin Glargine (Lantus Syringe) 18 unit QHS SQ ; Start 10/18/19 at 21:00; Stop 10/18/19 at 11:42; Status DC Lansoprazole (Prevacid) 30 mg DAILY FT Last administered on 10/21/19at 09:35; Start 10/19/19 at 09:00 Dextrose/Sodium Chloride 1,000 ml @ 75 mls/hr 1X ONCE IV Last administered on 10/18/19at 12:15; Start 10/18/19 at 11:45; Stop 10/19/19 at 01:04; Status DC Aspirin (Ecotrin) 325 mg DAILYWBKFT PO Last administered on 10/21/19at 09:35; Start 10/19/19 at 08:00; Stop 10/22/19 at 10:33; Status DC Dextrose/Sodium Chloride 1,000 ml @ 75 mls/hr 1X ONCE IV Last administered on 10/19/19at 04:00; Start 10/19/19 at 04:00; Stop 10/19/19 at 17:19; Status DC Iodixanol (Visipaque 320) 100 ml STK-MED ONCE .ROUTE ; Start 10/19/19 at 08:08; Stop 10/19/19 at 08:09; Status DC Lidocaine HCl (Buffered Lidocaine 1%) 3 ml STK-MED ONCE .ROUTE ; Start 10/19/19 at 08:09; Stop 10/19/19 at 08:09; Status DC Heparin Sodium/ Sodium Chloride 1,500 ml @ As Directed STK-MED ONCE .ROUTE ; Start 10/19/19 at 08:09; Stop 10/19/19 at 08:09; Status DC Iodixanol (Visipaque 320) 100 ml STK-MED ONCE .ROUTE ; Start 10/19/19 at 08:09; Stop 10/19/19 at 08:09; Status DC Sodium Chloride 1,000 ml @ 1,000 mls/hr Q1H PRN IV hypotension; Start 10/19/19 at 08:24; Stop 10/19/19 at 14:23; Status DC Sodium Chloride 1,000 ml @ 400 mls/hr Q2H30M PRN IV PATENCY; Start 10/19/19 at 08:24; Stop 10/19/19 at 20:23; Status DC Info (PHARMACY MONITORING -- do not chart) 1 each PRN DAILY PRN MC SEE COMMENTS; Start 10/19/19 at 08:30; Status Cancel Info (PHARMACY MONITORING -- do not chart) 1 each PRN DAILY PRN MC SEE COMMENTS; Start 10/19/19 at 08:30 Midazolam HCl (Versed) 5 mg STK-MED ONCE .ROUTE ; Start 10/19/19 at 08:39; Stop 10/19/19 at 08:40; Status DC Fentanyl Citrate (Fentanyl 5ml Vial) 250 mcg STK-MED ONCE .ROUTE ; Start 10/19/19 at 08:39; Stop 10/19/19 at 08:40; Status DC Dextrose (Dextrose 50%-Water Syringe) 25 gm STK-MED ONCE IV ; Start 10/19/19 at 08:42; Stop 10/19/19 at 08:43; Status DC Heparin Sodium (Porcine) (Heparin Sodium) 10,000 unit STK-MED ONCE .ROUTE ; Start 10/19/19 at 09:11; Stop 10/19/19 at 09:12; Status DC Dextrose/Sodium Chloride 1,000 ml @ 75 mls/hr [id number] IV Last administered on 10/20/19at 13:00; Start 10/19/19 at 09:30; Stop 10/20/19 at 16:17; Status DC Furosemide (Lasix) 40 mg [id number] IVP Last administered on 10/21/19at 14:55; Start 10/19/19 at 09:30 Heparin Sodium/ Sodium Chloride (HEPARIN for ARTERIAL LINE FLUSH) 1,000 unit 1X ONCE IART Last administered on 10/19/19at 09:30; Start 10/19/19 at 09:30; Stop 10/19/19 at 09:31; Status DC Heparin Sodium/ Sodium Chloride (HEPARIN for ARTERIAL LINE FLUSH) 1,000 unit 1X ONCE IART Last administered on 10/19/19at 09:30; Start 10/19/19 at 09:30; Stop 10/19/19 at 09:31; Status DC Lidocaine HCl (Buffered Lidocaine 1%) 3 ml 1X ONCE IJ Last administered on 10/19/19at 09:30; Start 10/19/19 at 09:30; Stop 10/19/19 at 09:31; Status DC Midazolam HCl (Versed) 5 mg 1X ONCE IV Last administered on 10/19/19at 09:30; Start 10/19/19 at 09:30; Stop 10/19/19 at 09:31; Status DC Fentanyl Citrate (Fentanyl 5ml Vial) 250 mcg 1X ONCE IV Last administered on 10/19/19at 09:30; Start 10/19/19 at 09:30; Stop 10/19/19 at 09:31; Status DC Iodixanol (Visipaque 320) 100 ml 1X ONCE IART Last administered on 10/19/19at 09:30; Start 10/19/19 at 09:30; Stop 10/19/19 at 09:31; Status DC Midazolam HCl (Versed) 2 mg STK-MED ONCE .ROUTE ; Start 10/19/19 at 09:57; Stop 10/19/19 at 09:57; Status DC Ketamine HCl (Ketamine) 50 mg STK-MED ONCE .ROUTE ; Start 10/19/19 at 09:57; Stop 10/19/19 at 09:57; Status DC Propofol 20 ml @ As Directed STK-MED ONCE IV ; Start 10/19/19 at 09:57; Stop 10/19/19 at 09:57; Status DC Iodixanol (Visipaque 320) 100 ml STK-MED ONCE .ROUTE ; Start 10/19/19 at 10:27; Stop 10/19/19 at 10:27; Status DC Heparin Sodium (Porcine) (Heparin Sodium) 5,000 unit 1X ONCE IV Last administered on 10/19/19at 10:50; Start 10/19/19 at 11:00; Stop 10/19/19 at 11:01; Status DC Fentanyl Citrate (Fentanyl 2ml Vial) 100 mcg STK-MED ONCE .ROUTE ; Start 10/19/19 at 11:37; Stop 10/19/19 at 11:37; Status DC Fentanyl Citrate (Fentanyl 2ml Vial) 100 mcg 1X ONCE IVP Last administered on 10/19/19at 11:42; Start 10/19/19 at 11:45; Stop 10/19/19 at 11:46; Status DC Propofol (Diprivan) 200 mg STK-MED ONCE IV ; Start 10/19/19 at 10:00; Stop 10/19/19 at 13:05; Status DC Metoprolol Tartrate (Lopressor) 25 mg BID PO Last administered on 10/21/19at 22:22; Start 10/19/19 at 21:00 Digoxin (Lanoxin) 250 mcg 1X ONCE IV ; Start 10/19/19 at 14:15; Stop 10/19/19 at 14:16; Status Cancel Insulin Human Lispro (HumaLOG) 0-9 UNITS Q6HRS SQ Last administered on 10/21/19at 13:51; Start 10/21/19 at 08:15; Stop 10/22/19 at 08:28; Status DC Insulin Human Lispro (HumaLOG) 0-5 UNITS Q6HRS SQ ; Start 10/22/19 at 12:00 Dextrose (Dextrose 50%-Water Syringe) 12.5 gm PRN Q15MIN PRN IV SEE COMMENTS; Start 10/22/19 at 08:30 Dextrose (Iv Dextrose 5%) 250 ml PRN Q15MIN PRN IV SEE COMMENTS; Start 10/22/19 at 08:30 Aspirin (Ecotrin) 325 mg DAILYWBKFT PO ; Start 10/22/19 at 08:00 Sodium Chloride 1,000 ml @ 1,000 mls/hr Q1H PRN IV hypotension; Start 10/22/19 at 10:44; Stop 10/22/19 at 16:43 Sodium Chloride (Normal Saline Flush) 10 ml 1X PRN PRN IV AP catheter pack; Start 10/22/19 at 10:45; Stop 10/23/19 at 10:44 Sodium Chloride (Normal Saline Flush) 10 ml 1X PRN PRN IV MERCHANDISER SEASONAL catheter pack; Start 10/22/19 at 10:45; Stop 10/23/19 at 10:44 Sodium Chloride 1,000 ml @ 400 mls/hr Q2H30M PRN IV PATENCY; Start 10/22/19 at 10:44; Stop 10/22/19 at 22:43 Info (PHARMACY MONITORING -- do not chart) 1 each PRN DAILY PRN MC SEE COMMENTS; Start 10/22/19 at 10:45 Info (PHARMACY MONITORING -- do not chart) 1 each PRN DAILY PRN MC SEE COMMENTS; Start 10/22/19 at 10:45 Active Scripts Active Humalog (Insulin Lispro) 100 Unit/1 Ml Insuln.pen 6 Units SQ Q6HRS 30 Days Lantus (Insulin Glargine,Hum.rec.anlog) 100 Unit/1 Ml Vial 25 Unit SQ QHS 30 Days Tramadol Hcl 50 Mg Tablet 50 Mg PO PRN Q6HRS PRN 3 Days Culturelle (Lactobacillus Rhamnosus Gg) 1 Each Cap.sprink 1 Cap PO BID 7 Days Aspirin Ec (Aspirin) 81 Mg Tablet. 81 Mg PO DAILYWBKFT Reported Glyburide 5 Mg Tablet 5 Mg PO DAILY Omeprazole 20 Mg Tablet. 20 Mg PO DAILY Calcitriol 0.5 Mcg Capsule 0.5 Mcg PO DAILY Furosemide 80 Mg Tablet 80 Mg PO BID Tamsulosin Hcl 0.4 Mg Cap.er.24h 1 Cap PO HS Montelukast Sodium Tablet (Montelukast Sodium) 10 Mg Tablet 1 Tab PO HS PRN Ondansetron Odt (Ondansetron) 4 Mg Tab.rapdis 1 Tab PO PRN Q6-8HRS PRN Cozaar (Losartan Potassium) 100 Mg Tablet 100 Mg PO HS Carvedilol 25 Mg Tablet 25 Mg PO BIDWMEALS Atorvastatin Calcium 40 Mg Tablet 40 Mg PO HS Vitals/I & O Vital Sign - Last 24 Hours 10/21/19 10/21/19 10/21/19 10/21/19 15:35 19:30 20:00 22:22 Temp 97.7 97.4 97.7 97.4 Pulse 79 87 87 Resp 20 18 B/P (MAP) 127/54 (78) 146/47 (80) 146/47 Pulse Ox 93 97 O2 Delivery Nasal Cannula Nasal Cannula Nasal Cannula O2 Flow Rate 3.0 3.0 3.0 10/21/19 10/22/19 10/22/19 10/22/19 22:22 00:30 05:00 07:59 Temp 96.3 97.6 96.3 97.6 Pulse 87 87 90 89 Resp 22 20 18 B/P (MAP) 146/47 159/84 (109) 124/90 (101) 146/78 (100) Pulse Ox 97 94 99 O2 Delivery Nasal Cannula Nasal Cannula Nasal Cannula O2 Flow Rate 3.0 3.0 3.0 10/22/19 11:00 Temp 98.0 98.0 Pulse 70 Resp 18 B/P (MAP) 138/84 (102) Pulse Ox 92 O2 Delivery Nasal Cannula O2 Flow Rate 3.0 Intake and Output 10/21/19 10/21/19 10/22/19 15:00 23:00 07:00 Intake Total 0 ml 640 ml Balance 0 ml 640 ml DUANE RAY MD Oct 22, 2019 12:07
--- NOTE | 2019-10-22 14:08 | PDOC ---
SUBJECTIVE ROS stable, seen on HD, tolertaing well OBJECTIVE Vital Signs Vital Signs Date Time Temp Pulse Resp B/P (MAP) Pulse Ox O2 Delivery O2 Flow Rate FiO2 10/22/19 11:00 98.0 70 18 138/84 (102) 92 Nasal Cannula 3.0 98.0 I & 0 Intake and Output 10/22/19 07:00 Intake Total 640 ml Balance 640 ml Intake Oral 0 ml Tube Feeding 440 ml Blood Product IV Normal Saline Flush 200 ml # Voids 3 # Bowel Movements 3 PHYSICAL EXAM Physical Exam General: No acute distress, HEENT: OM moist Neck Supple Lungs: Clear to auscultation, Normal air movement Heart: S1S2, RRR, no thrills, no rubs, no gallops, no murmurs Cardiovascular: S1, S2 Abdomen: Normal bowel sounds, Soft, No tenderness, PD removed, Has a PEG Extremities: left av fistula , no bruit or thrill Skin: No rashes, No quinteros DIAGNOSIS/ASSESSMENT Assessment & Plan ESRD- Dr Riggs's pt at [facility] Was on PD, switched to HD , has TDC ,Recd HD x 3 seen on HD , tolerating well, continue as ordered , Ron Jimenez Lt AV access Non functioning- per vascular Peripheral vascular disease with bilateral toe gangrene.ilateral lower extremities S/P Abdominal aortogtam and Angioplasties on 10/19 . Vascular following 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, type 2 Balanitis chronic- Per ID HTN- Severe protein calorie malnutrition albumin 1.1, Dysphagia/Aspiration- Has a PEG Hyper Phos- Phos Normal Hold Phoslo if stays low COMMENT/RELEVANT DATA Meds Current Medications Medications (Trade) Dose Ordered Sig/Rosalino Start Time Stop Time Status Last Admin Dose Admin Acetaminophen (Tylenol Supp) 650 mg PRN Q6HRS PRN 10/12/19 06:00 10/17/19 23:24 650 MG Acetaminophen (Tylenol) 500 mg 1X PRN PRN 10/15/19 16:15 10/16/19 16:14 DC Albumin Human 200 ml @ 200 mls/hr 1X PRN PRN 10/16/19 10:45 10/16/19 16:44 DC Amino Acids/ Electrolytes/ Dextrose 1,000 ml @ 80 mls/hr [id number] 10/12/19 16:30 10/17/19 08:52 DC 10/16/19 22:27 80 MLS/HR Amoxicillin/ Clavulanate Potassium (Augmentin 500/ 125mg) 1 tab DAILY 10/09/19 10:30 10/10/19 10:21 DC 10/10/19 10:08 1 TAB Aspirin (Ecotrin) 325 mg DAILYWBKFT 10/22/19 08:00 Atorvastatin Calcium (Lipitor) 40 mg HS 10/08/19 21:00 10/21/19 22:21 40 MG Barium Sulfate (Varibar Thin Liquid Apple) 148 gm 1X ONCE 10/15/19 10:00 10/15/19 10:02 DC 10/15/19 11:10 148 GM Bupivacaine HCl/ Epinephrine Bitart (Sensorcain-Epi 0.5%-1:[id number] Mpf) 30 ml STK-MED ONCE 10/16/19 15:44 10/16/19 15:44 DC 10/16/19 16:15 8 ML Calcium Acetate (Phoslo) 1,334 mg TIDWMEALS 10/08/19 20:00 10/21/19 18:39 1,334 MG Darbepoetin Zaid (ARANESP for DIALYSIS PTS) 60 mcg WEEKLYHS 10/15/19 21:00 10/15/19 23:41 60 MCG Dexamethasone Sodium Phosphate (Decadron) 4 mg STK-MED ONCE 10/16/19 15:34 10/16/19 15:34 DC Dextrose (Dextrose 50%-Water Syringe) 12.5 gm PRN Q15MIN PRN 10/22/19 08:30 Dextrose (Iv Dextrose 5%) 250 ml PRN Q15MIN PRN 10/22/19 08:30 Dextrose/Sodium Chloride 1,000 ml @ 75 mls/hr [id number] 10/19/19 09:30 10/20/19 16:17 DC 10/20/19 13:00 75 MLS/HR Digoxin (Lanoxin) 250 mcg 1X ONCE 10/19/19 14:15 10/19/19 14:16 Cancel Diphenhydramine HCl (Benadryl) 25 mg 1X PRN PRN 10/15/19 16:15 10/16/19 16:14 DC Docusate Sodium (Colace) 100 mg PRN BID PRN 10/08/19 16:30 Doxycycline Hyclate (Vibra-Tab) 100 mg BID 10/09/19 11:00 10/10/19 10:21 DC 10/10/19 10:08 100 MG Fentanyl Citrate (Fentanyl 2ml Vial) 100 mcg 1X ONCE 10/19/19 11:45 10/19/19 11:46 DC 10/19/19 11:42 100 MCG Fentanyl Citrate (Fentanyl 5ml Vial) 250 mcg 1X ONCE 10/19/19 09:30 10/19/19 09:31 DC 10/19/19 09:30 100 MCG Fluconazole (Diflucan) 100 mg DAILY 10/09/19 10:30 10/12/19 11:57 DC 10/10/19 10:08 100 MG Furosemide (Lasix) 40 mg [id number] 10/19/19 09:30 10/21/19 14:55 40 MG Heparin Sodium (Porcine) (Heparin Sodium) 5,000 unit 1X ONCE 10/19/19 11:00 10/19/19 11:01 DC 10/19/19 10:50 5,000 UNIT Heparin Sodium/ Sodium Chloride (HEPARIN for ARTERIAL LINE FLUSH) 1,000 unit 1X ONCE 10/19/19 09:30 10/19/19 09:31 DC 10/19/19 09:30 1,000 UNIT Hydromorphone HCl (Dilaudid) 0.5 mg PRN Q10MIN PRN 10/16/19 07:00 10/17/19 06:59 DC Info (PHARMACY MONITORING -- do not chart) 1 each PRN DAILY PRN 10/22/19 10:45 Insulin Glargine (Lantus Syringe) 18 unit QHS 10/18/19 21:00 10/18/19 11:42 DC Insulin Human Lispro (HumaLOG) 0-5 UNITS Q6HRS 10/22/19 12:00 Iodixanol (Visipaque 320) 100 ml STK-MED ONCE 10/19/19 10:27 10/19/19 10:27 DC Ketamine HCl (Ketamine) 50 mg STK-MED ONCE 10/19/19 09:57 10/19/19 09:57 DC Labetalol HCl (Normodyne Iv Push) 10 mg PRN Q2HR PRN 10/15/19 13:45 Lactobacillus Rhamnosus (Culturelle) 1 cap BID 10/08/19 21:00 10/21/19 22:21 1 CAP Lansoprazole (Prevacid) 30 mg DAILY 10/19/19 09:00 10/21/19 09:35 30 MG Lidocaine HCl (Buffered Lidocaine 1%) 3 ml 1X ONCE 10/19/19 09:30 10/19/19 09:31 DC 10/19/19 09:30 3 ML Lidocaine HCl (Lidocaine Pf 2% Vial) 5 ml STK-MED ONCE 10/17/19 08:49 10/17/19 08:49 DC Lidocaine HCl (Xylocaine-Mpf 1% 2ml Vial) 2 ml PRN 1X PRN 10/16/19 07:00 10/17/19 06:59 DC Lidocaine/ Epinephrine (LIDOCAINE 1%-EPI 1:100,000 Multi-Dose) 19 ml 1X ONCE 10/15/19 15:00 10/15/19 15:01 DC 10/15/19 14:54 19 ML Linezolid/Dextrose 300 ml @ 300 mls/hr Q12HR 10/12/19 12:00 10/16/19 10:46 DC 10/16/19 08:46 300 MLS/HR Losartan Potassium (Cozaar) 100 mg HS 10/08/19 21:00 10/21/19 22:22 100 MG Meropenem 500 mg/ Sodium Chloride 50 ml @ 100 mls/hr Q12HR 10/13/19 21:00 10/17/19 11:38 DC 10/17/19 09:00 100 MLS/HR Metoprolol Tartrate (Lopressor) 25 mg BID 10/19/19 21:00 10/21/19 22:22 25 MG Micafungin Sodium 100 mg/Dextrose 100 ml @ 100 mls/hr Q24H 10/12/19 12:00 10/17/19 11:38 DC 10/16/19 18:20 100 MLS/HR Midazolam HCl (Versed) 2 mg STK-MED ONCE 10/19/19 09:57 10/19/19 09:57 DC Montelukast Sodium (Singulair) 10 mg HS PRN 10/08/19 17:00 Morphine Sulfate (Morphine Sulfate) 1 mg PRN Q10MIN PRN 10/16/19 07:00 10/17/19 06:59 DC Ondansetron HCl (Zofran Odt) 4 mg PRN Q6HRS PRN 10/08/19 17:00 10/15/19 13:33 DC Ondansetron HCl (Zofran) 4 mg STK-MED ONCE 10/16/19 15:34 10/16/19 15:35 DC Pantoprazole Sodium (PROTONIX VIAL for IV PUSH) 40 mg DAILYAC 10/12/19 10:00 10/18/19 09:53 DC 10/18/19 08:12 40 MG Pantoprazole Sodium (Protonix) 40 mg DAILYAC 10/09/19 07:30 10/12/19 09:54 DC 10/10/19 10:10 40 MG Piperacillin Sod/ Tazobactam Sod 2.25 gm/Sodium Chloride 50 ml @ 100 mls/hr Q8HRS 10/10/19 11:00 10/12/19 11:56 DC 10/11/19 22:06 100 MLS/HR Prochlorperazine Edisylate (Compazine) 5 mg PACU PRN PRN 10/16/19 07:00 10/17/19 06:59 DC Propofol (Diprivan) 200 mg STK-MED ONCE 10/19/19 10:00 10/19/19 13:05 DC Ringer's Solution 1,000 ml @ 30 mls/hr Q24H 10/16/19 07:00 10/16/19 18:59 DC Rocuronium [place] (Zemuron) 50 mg STK-MED ONCE 10/16/19 15:34 10/16/19 15:35 DC Sodium Chloride 1,000 ml @ 400 mls/hr Q2H30M PRN 10/22/19 10:44 10/22/19 22:43 Sodium Chloride (Normal Saline Flush) 10 ml 1X PRN PRN 10/22/19 10:45 10/23/19 10:44 Tamsulosin HCl (Flomax) 0.4 mg HS 10/08/19 21:00 10/21/19 22:22 0.4 MG Tramadol HCl (Ultram) 50 mg PRN Q6HRS PRN 10/08/19 17:00 10/12/19 11:56 DC Vancomycin HCl (Vanco Per Pharmacy) 1 each PRN DAILY PRN 10/10/19 10:30 10/12/19 11:56 DC 10/11/19 15:08 1 EACH Vancomycin HCl (Vancomycin Random Level) 1 each 1X ONCE 10/12/19 05:00 10/12/19 05:01 DC 10/12/19 05:00 1 EACH Vancomycin HCl 1.5 gm/Sodium Chloride 500 ml @ 250 mls/hr 1X ONCE 10/10/19 11:00 10/10/19 12:59 DC 10/10/19 16:14 250 MLS/HR Vitamin A/Vitamin D (Vitamin A & D Ointment) 1 lucero PRN Q1HR PRN 10/09/19 09:00 Lab Laboratory Tests Test 10/21/19 17:56 10/22/19 00:00 10/22/19 00:03 10/22/19 00:21 Glucose (Fingerstick) 91 mg/dL (70-99) 17 mg/dL (70-99) 20 mg/dL (70-99) 16 mg/dL (70-99) Test 10/22/19 00:28 10/22/19 00:52 10/22/19 01:12 10/22/19 01:13 Glucose Level 117 mg/dL (70-99) Glucose (Fingerstick) 30 mg/dL (70-99) 124 mg/dL (70-99) 130 mg/dL (70-99) Test 10/22/19 06:11 Glucose (Fingerstick) 185 mg/dL (70-99) Results All relevant outside records, renal labs, imaging studies, telemetry/EKG's were reviewed. IVAN APARICIO MD Oct 22, 2019 14:08
--- NOTE | 2019-10-22 14:33 | SNU/HH DC ---
DISCHARGE ORDERS DISCHARGE INFORMATION: DISCHARGE DATE: Oct 22, 2019 CONDITION ON DISCHARGE: Stable CODE STATUS: Code Status: Full LTAC: ADMIT TO LTAC: Yes POST DISCHARGE ORDERS: ACTIVITY ORDERS: Activity as tolerated WEIGHT BEARING STATUS: As tolerated DIET AFTER DISCHARGE: PEG CHECKS AFTER DISCHARGE: CHECKS AFTER DISCHARGE: Check blood press - daily, Check blood sugar, ac/hs, Check your Temp as needed, Weigh Yourself Daily FOLLOW-UP: ADDITIONAL FOLLOW-UP: Vascular surgery, Nephrology TREATMENT/EQUIPMENT ORDERS: ADAPTIVE EQUIPMENT NEEDED: None INFUSION EQUIPMENT NEEDED: IV Line Physical Therapy For: Evalulation/Treatment Occupational Therapy For: Evaluation/Treatment DISCHARGE MEDICATIONS: Home Meds Active Scripts Tramadol Hcl (TRAMADOL HCL) 50 Mg Tablet, 50 MG PO PRN Q6HRS PRN for MODERATE PAIN for 3 Days, #12 TAB Prov:JOSE SOLANO MD 09/16/19 Lactobacillus Rhamnosus Gg (CULTURELLE) 1 Each Cap.sprink, 1 CAP PO BID for Diarrhea for 7 Days, #14 CAP Prov:JOSE SOLANO MD 09/16/19 Aspirin (ASPIRIN EC) 81 Mg Tablet., 81 MG PO DAILYWBKFT for PAD, #30 TAB.SR Prov:RICKIE GRAMAJO MD 08/09/19 Reported Medications Omeprazole (OMEPRAZOLE) 20 Mg Tablet., 20 MG PO DAILY for acid reflux, TAB 08/06/19 Calcitriol (CALCITRIOL) 0.5 Mcg Capsule, 0.5 MCG PO DAILY for supplement, CAP 08/06/19 Furosemide (FUROSEMIDE) 80 Mg Tablet, 80 MG PO BID for diuretic, TAB 08/06/19 Tamsulosin Hcl (TAMSULOSIN HCL) 0.4 Mg Cap.er.24h, 1 CAP PO HS for urinary retentrion, #30 CAP 5 Refills 10/13/18 Montelukast Sodium (MONTELUKAST SODIUM TABLET ) 10 Mg Tablet, 1 TAB PO HS PRN for ALLERGIES, #30 TAB 5 Refills 10/13/18 Ondansetron (ONDANSETRON ODT) 4 Mg Tab.rapdis, 1 TAB PO PRN Q6-8HRS PRN for NAUS EA, #16 TAB 10/13/18 Losartan Potassium (COZAAR) 100 Mg Tablet, 100 MG PO HS for HYPERTENSION, TAB 10/13/18 Carvedilol (CARVEDILOL) 25 Mg Tablet, 25 MG PO BIDWMEALS for CARDIAC, TAB 10/13/18 Atorvastatin Calcium (ATORVASTATIN CALCIUM) 40 Mg Tablet, 40 MG PO HS for FOR CHOLESTEROL, #30 TAB 0 Refills 10/13/18 Discontinued Reported Medications Glyburide (GLYBURIDE) 5 Mg Tablet, 5 MG PO DAILY for diabetes, TAB 10/03/19 Insulin Glargine,Hum.rec.anlog (LANTUS SOLOSTAR) 100 Unit/1 Ml Insuln.pen, 10 UNIT SQ QHS for diabetes, #15 ML 3 Refills 10/03/19 Insulin Lispro (HUMALOG) 100 Unit/1 Ml Cartridge, 100 UNIT SQ TIDWMEALS for diabetes, EACH 10/03/19 Glucagon,Human Recombinant (GLUCAGEN) 1 Mg Vial, 1 PRN PRN for LOW BLOOD SUGAR 08/03/19 Insulin Glargine,Hum.rec.anlog (LANTUS SOLOSTAR) 100 Unit/1 Ml Insuln.pen, 11 UNIT SQ QHS for dm, #15 ML 3 Refills 10/13/18 Insulin Lispro (HUMALOG) 100 Unit/1 Ml Cartridge, 22 UNIT SQ TIDWMEALS for dm, EACH 10/13/18 Amlodipine Besylate (AMLODIPINE BESYLATE) 10 Mg Tablet, 10 MG PO DAILY for htn, TAB 10/13/18 Discontinued Scripts [Fluconazole] 100 MG TABLET No Conflict Check, 100 MG PO DAILY for Cellulitis for 7 Days, #7 TAB Prov:JOSE SOLANO MD 09/16/19 Doxycycline Hyclate (DOXYCYCLINE HYCLATE) 100 Mg Tablet, 100 MG PO BID for Ce llulitis for 7 Days, #14 TAB Prov:JOSE SOLANO MD 09/16/19 Amoxicillin/Potassium Clav (AMOX TR-K CLV 500-125 MG TAB) 1 Each Tablet, 1 TAB PO DAILY for Cellulitis for 7 Days, #7 TAB Prov:JOSE SOLANO MD 09/16/19 JOSE SOLANO MD Oct 22, 2019 14:33
--- NOTE | 2019-10-22 14:37 | PDOC3 ---
Discharge Summary Visit Information Date of Admission: Oct 08, 2019 Date of Discharge: Oct 17, 2019 Admitting Diagnosis: Acute encephalopathy, DKA Final Diagnosis Chronic encephalopathy Brief Hospital Course Allergies Allergies Coded Allergies Type Severity Reaction Last Updated Verified lamotrigine Allergy Severe HIVES, SHORTNESS OF BREATH 10/17/19 Yes Vital Signs Vital Signs Date Time Temp Pulse Resp B/P (MAP) Pulse Ox O2 Delivery O2 Flow Rate FiO2 10/22/19 11:00 98.0 70 18 138/84 (102) 92 Nasal Cannula 3.0 98.0 Lab Results Laboratory Tests Test 10/20/19 16:18 10/20/19 21:14 10/21/19 08:13 10/21/19 10:15 Glucose (Fingerstick) 123 mg/dL (70-99) 76 mg/dL (70-99) 353 mg/dL (70-99) White Blood Count 8.9 x10^3/uL (4.0-11.0) Red Blood Count 2.71 x10^6/uL (4.30-5.70) Hemoglobin 8.1 g/dL (13.0-17.5) Hematocrit 24.9 % (39.0-53.0) Mean Corpuscular Volume 92 fL (79-100) Mean Corpuscular Hemoglobin 30 pg (25-35) Mean Corpuscular Hemoglobin Concent 33 g/dL (31-37) Red Cell Distribution Width 17.5 % (11.5-14.5) Platelet Count 244 x10^3/uL (140-400) Neutrophils (%) (Auto) 86 % (31-73) Lymphocytes (%) (Auto) 7 % (24-48) Monocytes (%) (Auto) 6 % (0-9) Eosinophils (%) (Auto) 0 % (0-3) Basophils (%) (Auto) 1 % (0-3) Neutrophils # (Auto) 7.7 x10^3/uL (1.8-7.7) Lymphocytes # (Auto) 0.6 x10^3/uL (1.0-4.8) Monocytes # (Auto) 0.6 x10^3/uL (0.0-1.1) Eosinophils # (Auto) 0.0 x10^3/uL (0.0-0.7) Basophils # (Auto) 0.1 x10^3/uL (0.0-0.2) Segmented Neutrophils % 88 % (35-66) Band Neutrophils % 4 % (0-9) Lymphocytes % 6 % (24-48) Monocytes % 1 % (0-10) Basophils % 1 % (0-3) Platelet Estimate Adequate (ADEQUATE) Anisocytosis Present Sodium Level 131 mmol/L (136-145) Potassium Level 4.1 mmol/L (3.5-5.1) Chloride Level 94 mmol/L (98-107) Carbon Dioxide Level 25 mmol/L (21-32) Anion Gap 12 (6-14) Blood Urea Nitrogen 25 mg/dL (8-26) Creatinine 3.5 mg/dL (0.7-1.3) Estimated GFR (Cockcroft-Gault) 18.3 Glucose Level 412 mg/dL (70-99) Calcium Level 8.4 mg/dL (8.5-10.1) Test 10/21/19 13:12 10/21/19 17:56 10/22/19 00:00 10/22/19 00:03 Glucose (Fingerstick) 306 mg/dL (70-99) 91 mg/dL (70-99) 17 mg/dL (70-99) 20 mg/dL (70-99) Test 10/22/19 00:21 10/22/19 00:28 10/22/19 00:52 10/22/19 01:12 Glucose (Fingerstick) 16 mg/dL (70-99) 30 mg/dL (70-99) 124 mg/dL (70-99) Glucose Level 117 mg/dL (70-99) Test 10/22/19 01:13 10/22/19 06:11 Glucose (Fingerstick) 130 mg/dL (70-99) 185 mg/dL (70-99) Laboratory Tests Test 10/21/19 17:56 10/22/19 00:00 10/22/19 00:03 10/22/19 00:21 Glucose (Fingerstick) 91 mg/dL (70-99) 17 mg/dL (70-99) 20 mg/dL (70-99) 16 mg/dL (70-99) Test 10/22/19 00:28 10/22/19 00:52 10/22/19 01:12 10/22/19 01:13 Glucose Level 117 mg/dL (70-99) Glucose (Fingerstick) 30 mg/dL (70-99) 124 mg/dL (70-99) 130 mg/dL (70-99) Test 10/22/19 06:11 Glucose (Fingerstick) 185 mg/dL (70-99) Brief Hospital Course Mr Easton is a 53yo M w/ PMHx hypertension, diabetes, and end-stage renal disease previously on hemodialysis who transitioned to peritoneal dialysis mid 2018. Presented to [facility] via EMS with hyperglycemia and altered mental status. The patient's relatives who lives out of state was talking to him on the phone and thought that he sounded unusual. EMS found the patient on the couch and the patient admits to sitting there for 3 days. He had urine and feces on him. His initial blood sugar was well over 400. He was alert to himself only at first. He was becoming more alert during transport. Patient denies any falls. He denies drinking alcohol though his family is concerned he has been drinking. ETOH level not detectable. The patient is a long-standing diabetic. He is on dialysis. He says that he used peritoneal dialysis last night. He does not have any additional specific complaints. He denies any falls or trauma. CXR clear BUN 65, Cr 9.5, Albumin 1.2, WBC 13, Hb 9.4, his anion gap is 22. His blood sugar was 484. Lactate 4. Alkaline phosphatase 583. Called for admission for further treatment of his confusion and labs abnormalities. No nephrology services at [facility] so transferred to [facility]. 10/09: Gap closed, eating. Still confused. His brother from [place], [place] has called and noted that he has called adult protective services on Mr Easton's . Patient does not want to discuss this with me. He is amenable to rehab referral and outpatient referral to urology as well. 10/10: WBC still up. Denies CP. Mild SOB. Penile pain and bilateral hand pain as well as abdominal pain. He is still confused today. 10/11: States he ate breakfast. No abdominal pain or penile pain today. Still with some cough and SOB, near his baseline. Very weak. Ammonia negative. MRI negative for strok. MANGLE [employer]ENDER CLOTH evaluated, grossly aspirating, placed NPO. D/w Robin, his DPOA to consult GI for PEG consideration 10/12: Fever 102F, mentally very slow. CT head negative. Aspirating, consulted GI to consider PEG, would need to remove PD cath and convert to HD. His LUE fistula examined - Occlusion distal brachiocephalic fistula with thrombus in cephalic venous portion of the fistula outflow region. 10/13: D/w family may need feeding tube and convert to HD. Still very slow mentally. He states he feels fine. Barely able to move. PPN at 80cc/hr. Glucose in 400s 10/14: Lost IV access. Failed videoswallow. Thinks his brother Robin is in the room and occasionally still thinks he is in [place], but upon further questioning and reminding he recalls that he is at [place]. He refuses to see psychiatrist. He is also asking for valium and gabapentin. 10/15: WBC improving. He wishes to go home, however his brother informs me that the camper he lives in with his is "uninhabitable" and has over 40 cats living in and around it. According to the patient's son this is not an exaggeration. 10/16: PD cath out 10/17: PEG placed 10/18: Metapneumovirus on viral panel positive. 10/19: Off antibiotics 10/20: Hypoglycemia. 10/21: Having arteriogram and revascularization plans for limb salvage by [facility] sx - will f/u outpatient for this. Hypoglycemic despite tube feedings. Off abx - dw ID, SLated for lTAC, HYpoglycemia persisted yesterday despite TF via PEG at 30cc (goal 40cc/hr) - new PEG Problem list: A/P: PAD, acute stenosis BILATERAL FEM ARTERIES Moderate stenosis proximal left SFA. Moderate stenosis distal SFA. High-grade stenosis left popliteal artery. Occlusion of the posterior tibial artery. High-grade stenosis at the origin of the anterior tibial artery, which appears to be the dominant blood supply to the foot RT necrotic big toe/gangrene RT BOG tOE gangrene HYPOGLYCEMIA - 10/17 Acute encephalopathy - metabolic 2/2 DKA and toxic 2/2 likely infectious etiology. Still somewhat confused DKA, type 2 - off insulin GTT. will repeat BMP, Elevated alkaline phosphatase level - monitor, Lactic acidosis - likely due to diabetes mellitus. Will trend Penile cellulitis - present on admission, likely from failure to f/u outpatient - Doxy and augmentin with fluconazole previously./// culture and consult ID ESRD on HD transitioning to PD prior to his admission - tolerating well. Will consult nephrology Sepsis - from penile cellulitis as etiology, f/u cultures. Previously with coag negative staph on PD culture. F/u repeat culture HTN - cont meds DM type 2 insulin requiring - now hyperglycemic, previously with hypoglycemic event - hypoglycemia protocol. Cont insulin basal bolus plus once out of DKA Severe protein calorie malnutrition - unclear etiology, albumin 1.2, definitely has inconsistent PO intake. Interviewing Clerk to see Anemia - of chronic renal disease Penile cellulitis, could have a component of vasculature involvement. U/S shows no abscess - painless ulcer concerning. Syphilis testing negative previously. Wound care to see Gait instability - needs further PT Anemia - of chronic renal disease Hyperphosphatemia - likely related to phos binder compliance difficulties. 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 Few areas of dry gangrenous tissue on plantar surface in toe creases. Left femoral access site dressing dry and intact, no hematoma or swelling Angiogram: 1. Diffuse atherosclerotic vascular disease without hemodynamically significant aortoiliac stenosis. 2. 70% stenosis of the right popliteal artery treated with balloon angioplasty 3. Areas of stenosis within the anterior tibial and posterior tibial artery treated with balloon angioplasty 4. Unfortunately no significant reconstitution of the dorsalis pedis or lateral plantar artery is seen, and despite more proximal revascularization, blood flow to the midfoot beyond remains poor. 5. Moderate stenosis proximal left SFA. Moderate stenosis distal SFA. High-grade stenosis left popliteal artery. Occlusion of the posterior tibial artery. High- grade stenosis at the origin of the anterior tibial artery, which appears to be the dominant blood supply to the foot. Multiple moderate narrowings of the posterior tibial artery appear to be present. Dedicated left lower extremity angiography may be helpful. Continue observation to allow demarcation. No plans to bypass right leg. Continue to observe left foot digits. May need percutaneous intervention left leg. Recommend protective measures with rooke boot bilaterally. Follow up in office as scheduled. Discharge Information Condition at Discharge: Stable Follow Up: Weeks (1) Disposition/Orders: D/C to Another Facility ([facility]) Scheduled Aspirin (Aspirin Ec) 81 Mg Tablet.dr, 81 MG PO [id number] for PAD, #30 Prescribed by: RICKIE GRAMAJO on 08/09/19 1010 Last Action: Continued on 10/08/191699 by JOSE SOLANO MD Atorvastatin Calcium (Atorvastatin Calcium) 40 Mg Tablet, 40 MG PO HS for FOR CHOLESTEROL, #30 Ref 0 (Reported) Entered as Reported by: Guillermo Holliday on 10/13/18648 Last Action: Continued on 10/08/191699 by JOSE SOLANO MD Calcitriol (Calcitriol) 0.5 Mcg Capsule, 0.5 MCG PO DAILY for supplement, (Reported) Entered as Reported by: KEY TEIXEIRA on 08/06/191830 Carvedilol (Carvedilol) 25 Mg Tablet, 25 MG PO BIDWMEALS for CARDIAC, (Reported) Entered as Reported by: Guillermo Holliday on 10/13/18648 Furosemide (Furosemide) 80 Mg Tablet, 80 MG PO BID for diuretic, (Reported) Entered as Reported by: KEY TEIXEIRA on 08/06/191830 Last Action: Continued on 10/08/191699 by JOSE SOLANO MD Lactobacillus Rhamnosus Gg (Culturelle) 1 Each Cap.sprink, 1 CAP PO BID for Diarrhea for 7 Days, #14 Prescribed by: JOSE SOLANO MD on 09/16/19 0914 Last Action: Continued on 10/08/191699 by JOSE SOLANO MD Losartan Potassium (Cozaar) 100 Mg Tablet, 100 MG PO HS for HYPERTENSION, (Reported) Entered as Reported by: Guillermo Holliday on 10/13/18648 Last Action: Converted on 10/08/191699 by JOSE SOLANO MD Omeprazole (Omeprazole) 20 Mg Tablet.dr, 20 MG PO DAILY for acid reflux, (Reported) Entered as Reported by: KEY TEIXEIRA on 08/06/191830 Last Action: Converted on 10/08/191699 by JOSE SOLANO MD Tamsulosin Hcl (Tamsulosin Hcl) 0.4 Mg Cap.er.24h, 1 CAP PO HS for urinary retentrion, #30 Ref 5 (Reported) Entered as Reported by: Guillermo Holliday on 10/13/18648 Last Action: Continued on 10/08/191699 by JOSE SOLANO MD Scheduled PRN Montelukast Sodium (Montelukast Sodium Tablet ) 10 Mg Tablet, 1 TAB PO HS PRN for ALLERGIES, #30 Ref 5 (Reported) Entered as Reported by: Guillermo Holliday on 10/13/18648 Last Action: Continued on 10/08/191699 by JOSE SOLANO MD Ondansetron (Ondansetron Odt) 4 Mg Tab.rapdis, 1 TAB PO PRN Q6-8HRS PRN for NAUSEA, #16 (Reported) Entered as Reported by: Guillermo Holliday on 10/13/18648 Last Action: Continued on 10/08/191699 by JOSE SOLANO MD Tramadol Hcl (Tramadol Hcl) 50 Mg Tablet, 50 MG PO PRN Q6HRS PRN for MODERATE PAIN for 3 Days, #12 Prescribed by: JOSE SOLANO MD on 09/16/19913 Last Action: Continued on 10/08/191699 by JOSE SOLANO MD Discontinued Medications Amlodipine Besylate (Amlodipine Besylate) 10 Mg Tablet, 10 MG PO DAILY for htn, (Reported) Entered as Reported by: Guillermo Holliday on 10/13/18648 Amoxicillin/Potassium Clav (Amox Tr-K Clv 500-125 Mg Tab) 1 Each Tablet, 1 TAB PO DAILY for Cellulitis for 7 Days, #7 Prescribed by: JOSE SOLANO MD on 09/16/19913 Doxycycline Hyclate (Doxycycline Hyclate) 100 Mg Tablet, 100 MG PO BID for Cellulitis for 7 Days, #14 Prescribed by: JOSE SOLANO MD on 09/16/19913 Glucagon,Human Recombinant (Glucagen) 1 Mg Vial, 1 PRN PRN for LOW BLOOD SUGAR, (Reported) Entered as Reported by: LIZZ DAVENPORT RN on 08/03/19154 Glyburide (Glyburide) 5 Mg Tablet, 5 MG PO DAILY for diabetes, (Reported) Entered as Reported by: FERNANDO HASSAN RN on 10/03/19 163 Last Action: HELD on 10/08/191699 by JOSE SOLANO MD Insulin Glargine,Hum.rec.anlog (Lantus Solostar) 100 Unit/1 Ml Insuln.pen, 11 UNIT SQ QHS for dm, #15 Ref 3 (Reported) Entered as Reported by: Guillermo Holliday on 10/13/1849 Insulin Glargine,Hum.rec.anlog (Lantus Solostar) 100 Unit/1 Ml Insuln.pen, 10 UNIT SQ QHS for diabetes, #15 Ref 3 (Reported) Entered as Reported by: FERNANDO HASSAN RN on 10/03/191630 Last Action: Converted on 10/08/191699 by JOSE SOLANO MD Insulin Lispro (Humalog) 100 Unit/1 Ml Cartridge, 22 UNIT SQ TIDWMEALS for dm, (Reported) Entered as Reported by: Guillermo Holliday on 10/13/1849 Insulin Lispro (Humalog) 100 Unit/1 Ml Cartridge, 100 UNIT SQ TIDWMEALS for diabetes, (Reported) Entered as Reported by: FERNANDO HASSAN RN on 10/03/191630 [Fluconazole] 100 MG TABLET, 100 MG PO DAILY for Cellulitis for 7 Days, #7 Prescribed by: JOSE SOLANO MD on 09/16/19 0914 Hemodynamically unstable?: No Is patient in severe pain?: No Is NPO status required?: Yes JOSE SOLANO MD Oct 22, 2019 14:37
[2019-10-22] MEDS: IV NORMAL SALINE 1000ML BAG 1,000 ML IV SCH (14:45)
--- NOTE | 2019-10-22 14:48 | NUR ---
Kathie from dialysis reported 1L taken off. BP 113/88 HR 96.
[2019-10-22 15:00] VITALS: BP 103/46
[2019-10-22] MEDS: LACTOBACILLUS RHAMNOSUS GG 1 CAPSULE. PO SCH (15:09)
[2019-10-22] MEDS: LANSOPRAZOLE 30 MG TAB.RAP.DR FT SCH ×2 (15:09→15:12)
[2019-10-22] MEDS: CALCIUM ACETATE 667 MG CAPSULE PO SCH ×3 (15:10→16:30)
[2019-10-22 15:14] VITALS: BP 104/84
[2019-10-22] MEDS: METOPROLOL TART IMMED RELEASE 25 MG TABLET. PO SCH (15:14)
--- NOTE | 2019-10-22 19:11 | NUR ---
Gave report to [facility] at [facility]. Telemonitor off. IJ still in tact. O2 on 2LNC. Pictures taken of wounds. Awaiting transportation
--- NOTE | 2019-10-22 20:00 | NUR ---
Discharge Note: DUANE IQBAL Discharge instructions and discharge home medications reviewed with Family Member and a copy given. All questions have been answered and understanding verbalized. The following instructions and handouts were given: EMS's transport steam fitter Discontinued continuous tube feeding bags, G-tube site C/D/I and Rt. IJ Triple lumen C/D/I with new dressing changed today, no swelling, no redness, no tenderness, no drainage. Patient discharged to [facility], transported by non emergent EMS transportation via stretcher, O2 at 3L/NC with two attendant followed by his parents, and all his belongings were taken with him.
== END 2019-10-22 20:00 | DRG 853 ==
LOC: 6 SOUTH 15:30
PROVIDERS: ADMIT Internal Medicine; ATTEND Internal Medicine
PROC: 30233N1 Transfusion of Nonautologous Red Blood Cells into Peripheral Vein, Percutaneous Approach (ICD-10-PCS; principal; 2019-10-08)
PROC: 3E1M39Z Irrigation of Peritoneal Cavity using Dialysate, Percutaneous Approach (ICD-10-PCS; 2019-10-09)
PROC: 3E1M39Z Irrigation of Peritoneal Cavity using Dialysate, Percutaneous Approach (ICD-10-PCS; 2019-10-10)
PROC: 3E1M39Z Irrigation of Peritoneal Cavity using Dialysate, Percutaneous Approach (ICD-10-PCS; 2019-10-11)
PROC: 3E1M39Z Irrigation of Peritoneal Cavity using Dialysate, Percutaneous Approach (ICD-10-PCS; 2019-10-11)
PROC: 3E1M39Z Irrigation of Peritoneal Cavity using Dialysate, Percutaneous Approach (ICD-10-PCS; 2019-10-12)
PROC: 02HV33Z Insertion of Infusion Device into Superior Vena Cava, Percutaneous Approach (ICD-10-PCS; 2019-10-15)
PROC: B5181ZA Fluoroscopy of Superior Vena Cava using Low Osmolar Contrast, Guidance (ICD-10-PCS; 2019-10-15)
PROC: 0JH63XZ Insertion of Tunneled Vascular Access Device into Chest Subcutaneous Tissue and Fascia, Percutaneous Approach (ICD-10-PCS; 2019-10-15)
PROC: 02H633Z Insertion of Infusion Device into Right Atrium, Percutaneous Approach (ICD-10-PCS; 2019-10-15)
PROC: B5181ZA Fluoroscopy of Superior Vena Cava using Low Osmolar Contrast, Guidance (ICD-10-PCS; 2019-10-15)
PROC: B548ZZA Ultrasonography of Superior Vena Cava, Guidance (ICD-10-PCS; 2019-10-15)
PROC: 5A1D70Z Performance of Urinary Filtration, Intermittent, Less than 6 Hours Per Day (ICD-10-PCS; 2019-10-15)
PROC: 0WPG03Z Removal of Infusion Device from Peritoneal Cavity, Open Approach (ICD-10-PCS; 2019-10-16)
PROC: 5A1D70Z Performance of Urinary Filtration, Intermittent, Less than 6 Hours Per Day (ICD-10-PCS; 2019-10-16)
PROC: 0DH63UZ Insertion of Feeding Device into Stomach, Percutaneous Approach (ICD-10-PCS; 2019-10-17)
PROC: 5A1D70Z Performance of Urinary Filtration, Intermittent, Less than 6 Hours Per Day (ICD-10-PCS; 2019-10-17)
PROC: 047M3ZZ Dilation of Right Popliteal Artery, Percutaneous Approach (ICD-10-PCS; 2019-10-19)
PROC: 047P3ZZ Dilation of Right Anterior Tibial Artery, Percutaneous Approach (ICD-10-PCS; 2019-10-19)
PROC: 047R3ZZ Dilation of Right Posterior Tibial Artery, Percutaneous Approach (ICD-10-PCS; 2019-10-19)
PROC: B41D1ZZ Fluoroscopy of Aorta and Bilateral Lower Extremity Arteries using Low Osmolar Contrast (ICD-10-PCS; 2019-10-19)
PROC: B41C1ZZ Fluoroscopy of Pelvic Arteries using Low Osmolar Contrast (ICD-10-PCS; 2019-10-19)
PROC: 5A1D70Z Performance of Urinary Filtration, Intermittent, Less than 6 Hours Per Day (ICD-10-PCS; 2019-10-19)
PROC: 5A1D70Z Performance of Urinary Filtration, Intermittent, Less than 6 Hours Per Day (ICD-10-PCS; 2019-10-22)
DX: A41.9 Sepsis, unspecified organism (principal); G93.41 Metabolic encephalopathy; N18.6 End stage renal disease; E43 Unspecified severe protein-calorie malnutrition; E11.10 Type 2 diabetes mellitus with ketoacidosis without coma; I50.33 Acute on chronic diastolic (congestive) heart failure; K22.11 Ulcer of esophagus with bleeding; I13.2 Hypertensive heart and chronic kidney disease with heart failure and with stage 5 chronic kidney disease, or end stage renal disease; E11.52 Type 2 diabetes mellitus with diabetic peripheral angiopathy with gangrene; D63.1 Anemia in chronic kidney disease; E78.5 Hyperlipidemia, unspecified; E83.39 Other disorders of phosphorus metabolism; F03.90 Unspecified dementia, unspecified severity, without behavioral disturbance, psychotic disturbance, mood disturbance, and anxiety; F32.9 Major depressive disorder, single episode, unspecified; F17.210 Nicotine dependence, cigarettes, uncomplicated; F41.9 Anxiety disorder, unspecified; I25.10 Atherosclerotic heart disease of native coronary artery without angina pectoris; I25.2 Old myocardial infarction; I48.91 Unspecified atrial fibrillation; I70.201 Unspecified atherosclerosis of native arteries of extremities, right leg; I70.208 Unspecified atherosclerosis of native arteries of extremities, other extremity; J44.9 Chronic obstructive pulmonary disease, unspecified; K21.9 Gastro-esophageal reflux disease without esophagitis; K29.70 Gastritis, unspecified, without bleeding; N48.22 Cellulitis of corpus cavernosum and penis; E11.22 Type 2 diabetes mellitus with diabetic chronic kidney disease; R13.12 Dysphagia, oropharyngeal phase; R13.13 Dysphagia, pharyngeal phase; R62.7 Adult failure to thrive; T18.2XXA Foreign body in stomach, initial encounter; Z79.4 Long term (current) use of insulin; Z79.82 Long term (current) use of aspirin; Z80.3 Family history of malignant neoplasm of breast; Z86.73 Personal history of transient ischemic attack (TIA), and cerebral infarction without residual deficits; Z91.11 Patient's noncompliance with dietary regimen; Z96.659 Presence of unspecified artificial knee joint; Z98.61 Coronary angioplasty status; Z99.2 Dependence on renal dialysis; M19.90 Unspecified osteoarthritis, unspecified site; Z68.23 Body mass index [BMI] 23.0-23.9, adult; E11.42 Type 2 diabetes mellitus with diabetic polyneuropathy; E11.649 Type 2 diabetes mellitus with hypoglycemia without coma
CPT/HCPCS: 36415; 36556; 36558; 37224; 37228; 37232; 43246; 70450; 70551; 74230; 75625; 75716; 76700; 76937; 77001; 80048; 80053; 80069; 80076; 80202; 81001; 82140; 82607; 82947; 82962; 82977; 83036; 83605; 83735; 84100; 84145; 84443; 85007; 85025; 85610; 85651; 86038; 86850; 86900; 86901; 86920; 87040; 87070; 87340; 87633; 93005; 93923; 93931; 95816; 99152; 99153; A7015; C1713; C1725; C1750; C1760; C1769; C1892; C1894; C9113; G0269; J0882; J1100; J1644; J1815; J1940; J2001; J2020; J2185; J2248; J2250; J2405; J2543; J2704; J3010; J3370; J3490; J7030; J7040; J7042; P9016; Q9967; 92526; 92610; 92611; 97110; 97530; 97535; G0378